=== PATIENT | male | born 1940 | race Caucasian/White ===

== ENCOUNTER 2017-05-10 11:34 | Observation (INO) | payer OTHER ==
[~2017-05-10] VITALS: Ht 177.8 cm; Wt 104.4 kg
[~2017-05-10 11:34] MED LIST: ASPI81TA28 PO; ATEN50TA8 PO; BND25 PO; COLE5GRA5 PO; HYDR25TA5 PO; LSN40 PO; SIMV10TA2 PO; TRAM-10 PO; [UNRECOGNIZED DRUG - CODE] TOP
[2017-05-10] MEDS ORDERED: MELO15TA10 PO (12:08)
[2017-05-10] MEDS ORDERED: SIMV20TA2 PO (12:08)
--- NOTE | 2017-05-10 12:47 | EMERGENCY ROOM VISIT NOTE ---
History Report prepared by Jessica: Aaron Montague Under the Supervision of: Dr. Hamzah Garces M.D. First contact with patient: 12:05 Chief Complaint: CHEST PAIN Stated Complaint: CHEST PAIN Nursing Triage Summary: Patient arrived via EMS from [facility]. Pt c/o left sided chest pain and left shoulder/arm pain since Monday morning, pain has decreased in intesity but does not go away completely. Pt associates dizziness, denies nausea, SOB, diaphoresis. EMS reports patient had 1 Nitro at [facility] and rated pa in 6/10. EMS adminitered 4 ASA. On arrival pt reports chest pain 1/10, left arm pain 2/10. History of Present Illness The patient is a 76 year old male who presents to the Emergency Room via EMS with complaints of resolved left-sided chest pain that started 3 days ago. He says that the chest pain ran into his left neck and left arm. The patient says he has never had something like this before. He tried to have a stress test at least 10 years ago, but he says that he could not do it. The patient has never had a cardiac catheterization before. He states that he was seen at the [facility] earlier today, and was given 1 Nitro, which helped lessen the pain. The pain before the Nitro was rated as a 6 out of 10 in severity. The patient was given 4 Aspirin in the ambulance. He says he is currently pain free. The patient denies any dizziness, nausea, shortness of breath, diaphoresis, or abdominal pain. Source of History: patient Onset: 3 days ago Position: chest (left) Symptom Intensity: 6/10 before nitro Timing: resolved Modifying Factors (Relieving): other (Nitro, Aspirin) Associated Symptoms: + neck pain, No diaphoresis, No SOB, No nausea, No abdominal pain Note: Associated symptoms: Left arm pain. Denies dizziness. Review of Systems See HPI for pertinent positives & negatives. A total of 10 systems reviewed and were otherwise negative. Past Medical & Surgical Medical Problems: (1) IBS (irritable bowel syndrome) (2) Osteoarthritis (3) Spinal stenosis Family History Family history omitted secondary to patient's advanced age. Social History Smoking Status: Never Smoker Marital Status: Housing Status: lives with family Occupation Status: retired Current/Historical Medications Scheduled Aspirin (Aspirin Ec), 81 MG PO DAILY Atenolol (Tenormin), 50 MG PO DAILY Colestipol Hcl (Colestipol Hcl For Oral S), 1 DOSE PO BID Diphenhydramine Hcl (Benadryl), 25 MG PO DAILY Hydrochlorothiazide (Hydrochlorothiazide), 25 MG PO DAILY Lisinopril (Lisinopril), 40 MG PO DAILY Meloxicam (Mobic), 15 MG PO DAILY Simvastatin (Zocor), 10 MG PO DAILY Allergies Coded Allergies: Felodipine (Verified Allergy, Mild, hives, 09/26/14) Gabapentin (Unverified Allergy, Mild, GI SYMPTOMS, 09/26/14) Flunisolide (Verified Allergy, Unknown, other, 09/26/14) Physical Exam Vital Signs Date Time Temp Pulse Resp B/P (MAP) Pulse Ox O2 Delivery O2 Flow Rate FiO2 05/10/17 14:21 50 20 145/84 94 Room Air 05/10/17 12:56 48 22 130/70 95 Room Air 05/10/17 12:55 93 Room Air 05/10/17 12:55 93 Room Air 05/10/17 12:14 45 05/10/17 12:05 37.1 05/10/17 11:35 49 21 128/72 94 Room Air Physical Exam GENERAL: Patient is a healthy-appearing well-nourished 76 year old male. HEAD: Normocephalic atraumatic EYES: Ocular movements intact pupils equal and react to light OROPHARYNX mucous membranes are moist no exudates present no erythema or edema present NECK: Supple no nuchal rigidity CHEST: Good equal expansion LUNGS: Clear and equal to auscultation CARDIAC: Normal S1 and S2 ABDOMEN: Soft nontender no guarding BACK: No CVA tenderness EXTREMITIES: No pain upon palpation normal muscle strength in all groups no clubbing cyanosis or edema NEURO: Patient is following commands and answering questions appropriately. Alert and oriented x3 Cranial Nerves 2-12 grossly intact Medical Decision & Procedures ER Provider Diagnostic Interpretation: X-ray results as stated below per interpretation by me and the radiologist: CHEST ONE VIEW PORTABLE CLINICAL HISTORY: CHEST PAIN COMPARISON STUDY: No previous studies for comparison. FINDINGS: The bones soft tissues and hemidiaphragms are normal. The cardiomediastinal silhouette is normal. The lungs are clear. The pulmonary vasculature is normal. IMPRESSION: Negative chest. Electronically signed by: River Mello M.D. 05/10/2017 1:07 PM Dictated Date/Time: 05/10/2017 1:06 PM Laboratory Results 05/10/17 12:54 Red Blood Count 4.73, Mean Corpuscular Volume 92.8, Mean Corpuscular Hemoglobin 30.2, Mean Corpuscular Hemoglobin Concent 32.6, Mean Platelet Volume 11.4, Neutrophils (%) (Auto) 60.4, Lymphocytes (%) (Auto) 28.9, Monocytes (%) (Auto) 9.8, Eosinophils (%) (Auto) 0.4, Basophils (%) (Auto) 0.4, Neutrophils # (Auto) 4.75, Lymphocytes # (Auto) 2.27, Monocytes # (Auto) 0.77, Eosinophils # (Auto) 0.03, Basophils # (Auto) 0.03 05/10/17 12:54 Test 05/10/17 12:52 05/10/17 12:54 White Blood Count 7.86 K/uL (4.8-10.8) Red Blood Count 4.73 M/uL (4.7-6.1) Hemoglobin 14.3 g/dL (14.0-18.0) Hematocrit 43.9 % (42-52) Mean Corpuscular Volume 92.8 fL (80-100) Mean Corpuscular Hemoglobin 30.2 pg (25-34) Mean Corpuscular Hemoglobin Concent 32.6 g/dl (32-36) Platelet Count 145 K/uL (130-400) Mean Platelet Volume 11.4 fL (7.4-10.4) Neutrophils (%) (Auto) 60.4 % Lymphocytes (%) (Auto) 28.9 % Monocytes (%) (Auto) 9.8 % Eosinophils (%) (Auto) 0.4 % Basophils (%) (Auto) 0.4 % Neutrophils # (Auto) 4.75 K/uL (1.4-6.5) Lymphocytes # (Auto) 2.27 K/uL (1.2-3.4) Monocytes # (Auto) 0.77 K/uL (0.11-0.59) Eosinophils # (Auto) 0.03 K/uL (0-0.5) Basophils # (Auto) 0.03 K/uL (0-0.2) RDW Standard Deviation 46.0 fL (36.4-46.3) RDW Coefficient of Variation 13.4 % (11.5-14.5) Immature Granulocyte % (Auto) 0.1 % Immature Granulocyte # (Auto) 0.01 K/uL (0.00-0.02) Prothrombin Time 11.2 SECONDS (9.0-12.0) Prothromb Time International Ratio 1.0 (0.9-1.1) Activated Partial Thromboplast Time 25.0 SECONDS (21.0-31.0) Partial Thromboplastin Ratio 1.0 Anion Gap 7.0 mmol/L (3-11) Est Creatinine Clear Calc Drug Dose 59.1 ml/min Estimated GFR () 62.3 Estimated GFR (Non- 53.8 BUN/Creatinine Ratio 18.5 (10-20) Calcium Level 10.3 mg/dl (8.5-10.1) Total Bilirubin 1.6 mg/dl (0.2-1) Direct Bilirubin 0.3 mg/dl (0-0.2) Aspartate Amino Transf (AST/SGOT) 20 U/L (15-37) Alanine Aminotransferase (ALT/SGPT) 21 U/L (12-78) Alkaline Phosphatase 39 U/L (45-117) Total Creatine Kinase 72 U/L (39-308) Creatine Kinase MB 0.8 ng/ml (0.5-3.6) Creatine Kinase MB Ratio 1.1 (0-3.0) Troponin I < 0.015 ng/ml (0-0.045) Total Protein 7.4 gm/dl (6.4-8.2) Albumin 3.7 gm/dl (3.4-5.0) Lipase 110 U/L (73-393) Labs reviewed by ED physician. ECG Indication: chest pain Rate (beats per minute): 50 Rhythm: sinus bradycardia Findings: PVC (occasional), T-wave inversion (Anterior), no acute ischemic change, other (incomplete RBBB) Change: no significant change ED Course 1240: Past medical records reviewed. The patient was evaluated in room C1B. A complete history and physical examination was performed. 1340: I reevaluated the patient and he is resting comfortably. The patient verbally expressed understanding and agreement of the treatment plan. The patient will be evaluated for further treatment. 1514: I discussed the patient with Dr. Francoise PAREDES hospitalist - he will evaluate the patient for further treatment. Medical Decision Differential diagnosis: Etiologies such as appendicitis, diverticulitis, PUD, biliary pathology, UTI, pancreatitis, obstruction, mesenteric ischemia, aortic pathology, infections, inflammatory bowel disease, renal colic, as well as others were entertained. Medication Reconciliation: I attest that I have personally reviewed the patient' s current medication list Blood Pressure Screening: Patient was found to have normal blood pressure on screening and does not require follow up. This is a 76-year-old male who presents emergency department complaining of chest pain. The chest pain was relieved by nitroglycerin. The patient was also given aspirin he has a normal CK-MB troponin. I did discuss the case with the hospitalist service who agreed to admit the patient. Patient was in agreement with the treatment plan. Consults Time Called: [phone] Consulting Physician: Dr. Francoise snell Returned Call: [phone] I discussed the patient with Dr. Francoise snell - he will evaluate the patient for further treatment. Impression Primary Impression: Precordial chest pain Scribe Attestation The scribe's documentation has been prepared under my direction and personally reviewed by me in its entirety. I confirm that the note above accurately reflects all work, treatment, procedures, and medical decision making performed by me. Departure Information Dispostion Being Evaluated By Hospitalist Referrals No Doctor, Assigned (PCP) Patient Instructions My [facility]
--- NOTE | 2017-05-10 13:08 | DIAGNOSTIC IMAGING REPORT ---
CHEST ONE VIEW PORTABLE CLINICAL HISTORY: CHEST PAIN COMPARISON STUDY: No previous studies for comparison. FINDINGS: The bones soft tissues and hemidiaphragms are normal. The cardiomediastinal silhouette is normal. The lungs are clear. The pulmonary vasculature is normal. IMPRESSION: Negative chest. Electronically signed by: River Mello M.D. 05/10/2017 1:07 PM Dictated Date/Time: 05/10/2017 1:06 PM
[2017-05-10 13:10] LABS: BASO % 0.4 %; BASO ABS # 0.03 K/uL (0-0.2); COMPLETE YES; EOS % 0.4 %; HEMATOCRIT 43.9 % (42-52); IG% 0.1 %; LYMPH % 28.9 %; LYMPH ABS # 2.27 K/uL (1.2-3.4); MEAN CELL VOLUME 92.8 fL (80-100); MEAN CORPUSCULAR HEMOGLOBIN 30.2 pg (25-34); MEAN CORPUSCULAR HGB CONC 32.6 g/dl (32-36); MEAN PLATELET VOLUME 11.4 fL (7.4-10.4); MONO % 9.8 %; NEUT % 60.4 %; PLATELET COUNT 145 K/uL (130-400); RED BLOOD COUNT 4.73 M/uL (4.7-6.1); WHITE BLOOD COUNT 7.86 K/uL (4.8-10.8)
[2017-05-10 13:30] LABS: ALT/SGPT 21 U/L (12-78); BLOOD UREA NITROGEN 24 mg/dl (7-18); BUN/CREATININE RATIO 18.5 (10-20); CALCIUM 10.3 mg/dl (8.5-10.1); CARBON DIOXIDE 26 mmol/L (21-32); CHLORIDE 110 mmol/L (98-107); GLUCOSE 113 mg/dl (70-99); POTASSIUM 3.9 mmol/L (3.5-5.1); SODIUM 143 mmol/L (136-145)
[2017-05-10 13:35] LABS: ALKALINE PHOSPHATASE 39 U/L (45-117); AST/SGOT 20 U/L (15-37); CKMB/CK RATIO 1.1 (0-3.0)
[2017-05-10] MEDS ORDERED: ONDANSETRON INJ 2 MG/ML 2 ML VIAL IV PRN (14:45)
[2017-05-10] MEDS ORDERED: NITROGLYCERIN 0.4 MG SL PER TAB CHARGE SL PRN (14:45)
[2017-05-10] MEDS ORDERED: ALUMINUM/MAGNESIUM/SIMETH (MAALOX MAX) 30 ML UDC PO PRN (14:45)
[2017-05-10] MEDS ORDERED: ACETAMINOPHEN 325 MG TAB PO PRN (14:45)
[2017-05-10] MEDS ORDERED: MAGNESIUM HYDROXIDE SUSP 30 ML UDC PO PRN (14:45)
[2017-05-10] MEDS ORDERED: POLYETHYLENE (MIRALAX) 17 GM PACK PO PRN (14:45)
[2017-05-10] MEDS ORDERED: IV FLUIDS COMPLETED PRN (15:30)
[2017-05-10 16:35] VITALS: BP 117/70; PULSE 51; TEMP 36.7; O2SAT 94
[2017-05-10 17:56] LABS: PROTHROMBIN TIME (PATIENT) 11.2 SECONDS (9.0-12.0)
[2017-05-10 19:27] VITALS: BP 117/70; PULSE 51; TEMP 36.7; O2SAT 96; BMI 31.6
[2017-05-10 19:45] VITALS: BP 124/71; PULSE 48; TEMP 36.5; O2SAT 96
[2017-05-10 20:00] VITALS: O2SAT 96
[2017-05-10] MEDS ORDERED: HydrALAZINE HCL 20 MG/ML VIAL IV. PRN (20:30)
--- NOTE | 2017-05-10 20:31 | History and Physical ---
History & Physical Date & Time of Service: May 10, 2017 at 20:15 Chief Complaint: Precordial Chest Pain Primary Care Physician: No Doctor, Assigned History of Present Illness Source: patient, clinic records (copy of [facility] records), hospital records This is a 76 y/o male with a history of HTN, HLD, BPH, DM II controlled by diet , and gout who presented to the ED on 05/10 with chest pain. The patient first developed left-sided chest pain about 4 days ago that radiated up to the left side of his neck and down his left arm. Over the last few days the pain has been improving. The patient was seen at the [facility] earlier today and received 1 dose of nitroglycerin which helped to relieve the pain. En route to the ED he received 4 aspirins which also helped with the pain. He is currently pain-free in the chest but still complains 1/10 aching pain in the left arm. He denies any previous cardiac events. He states that he had a nuclear stress test about 10 years ago that was normal. He denies any previous cardiac catheterizations. Patient denies any associated symptoms such as nausea, vomiting, numbness/ tingling or shortness of breath. He does complain of some dizziness that occurs when standing up and that resolves quickly. The patient denies fevers, chills, sweats, palpitations, claudication, cough, wheezing, shortness of breath , nausea, vomiting, abdominal pain, dysuria, hematuria, urinary retention, paralysis, weakness, numbness and tingling. Past Medical/Surgical History Medical Problems: (1) IBS (irritable bowel syndrome) Status: Chronic (2) Osteoarthritis Status: Chronic (3) Spinal stenosis Status: Resolved HTN HLD BPH DM II Gout Family History Diabetes mellitus Hypertension Stroke Social History Smoking Status: Never Smoker Smokeless Tobacco Use: No Alcohol Use: socially (1 beer/day) Drug Use: none Marital Status: Housing status: lives with significant other Occupational Status: retired Multi-Drug Resistant Organisms History of MDRO: No Allergies Coded Allergies: Felodipine (Verified Allergy, Mild, hives, 09/26/14) Gabapentin (Unverified Allergy, Mild, GI SYMPTOMS, 09/26/14) Flunisolide (Verified Allergy, Unknown, other, 09/26/14) Home Medications Scheduled Aspirin (Aspirin Ec), 81 MG PO DAILY Atenolol (Tenormin), 25 MG PO DAILY Colestipol Hcl (Colestipol Hcl For Oral S), 1 DOSE PO BID Diphenhydramine Hcl (Benadryl), 25 MG PO DAILY Hydrochlorothiazide (Hydrochlorothiazide), 25 MG PO DAILY Lisinopril (Lisinopril), 40 MG PO DAILY Meloxicam (Mobic), 15 MG PO DAILY Simvastatin (Zocor), 10 MG PO DAILY Review of Systems Constitutional: No fever, No chills, No sweats Eyes: No worsening of vision, No eye pain, No diplopia ENT: No hearing loss, No sore throat, No trouble swallowing Respiratory: No cough, No wheezing, No shortness of breath Cardiovascular: + chest pain, No claudication, No palpitations Abdomen: No pain, No nausea, No vomiting Musculoskeletal: No joint pain, No muscle pain, No swelling Genitourinary - Male: No hematuria, No dysuria, No urinary retention Neurologic: No paralysis, No weakness, No numbness/tingling Integumentary: No rash, No itch, No color change Physical Exam Vital Signs Date Time Temp Pulse Resp B/P (MAP) Pulse Ox O2 Delivery O2 Flow Rate FiO2 05/10/17 19:45 36.5 48 16 124/71 (88) 96 Room Air 05/10/17 19:27 36.7 51 16 117/70 96 Room Air 05/10/17 16:35 36.7 51 16 117/70 (86) 94 Room Air 05/10/17 16:20 48 18 133/68 96 05/10/17 14:21 50 20 145/84 94 Room Air 05/10/17 12:56 48 22 130/70 95 Room Air 05/10/17 12:55 93 Room Air 05/10/17 12:55 93 Room Air 05/10/17 12:14 45 05/10/17 12:05 37.1 05/10/17 11:35 49 21 128/72 94 Room Air General appearance: +Obese. Well-developed, well-nourished, no apparent distress Head: Normocephalic, atraumatic Eyes: Normal inspection, PERRL, EOMI ENT: Normal ENT inspection, hearing grossly normal, pharynx normal Neck: Supple, no JVD, trachea midline Respiratory/Chest: Lungs clear to auscultation, normal breath sounds, no respiratory distress Cardiovascular: +Bradycardia. Regular rhythm, no gallop, no murmur Abdomen/GI: Normal bowel sounds, non-tender, soft Extremities/Musculoskeletal: Normal inspection, no calf tenderness, no pedal edema Neurological/Psych: Alert, normal mood/affect, oriented x 3 Skin: Normal color, warm/dry, no rash Diagnostics Laboratory Results Results Past 24 Hours Test 05/10/17 12:52 05/10/17 12:54 Range/Units White Blood Count 7.86 4.8-10.8 K/uL Red Blood Count 4.73 4.7-6.1 M/uL Hemoglobin 14.3 14.0-18.0 g/dL Hematocrit 43.9 42-52 % Mean Corpuscular Volume 92.8 80-100 fL Mean Corpuscular Hemoglobin 30.2 25-34 pg Mean Corpuscular Hemoglobin Concent 32.6 32-36 g/dl Platelet Count 145 130-400 K/uL Mean Platelet Volume 11.4 7.4-10.4 fL Neutrophils (%) (Auto) 60.4 % Lymphocytes (%) (Auto) 28.9 % Monocytes (%) (Auto) 9.8 % Eosinophils (%) (Auto) 0.4 % Basophils (%) (Auto) 0.4 % Neutrophils # (Auto) 4.75 1.4-6.5 K/uL Lymphocytes # (Auto) 2.27 1.2-3.4 K/uL Monocytes # (Auto) 0.77 0.11-0.59 K/uL Eosinophils # (Auto) 0.03 0-0.5 K/uL Basophils # (Auto) 0.03 0-0.2 K/uL RDW Standard Deviation 46.0 36.4-46.3 fL RDW Coefficient of Variation 13.4 11.5-14.5 % Immature Granulocyte % (Auto) 0.1 % Immature Granulocyte # (Auto) 0.01 0.00-0.02 K/uL Prothrombin Time 11.2 9.0-12.0 SECONDS Prothromb Time International Ratio 1.0 0.9-1.1 Activated Partial Thromboplast Time 25.0 21.0-31.0 SECONDS Partial Thromboplastin Ratio 1.0 Sodium Level 143 136-145 mmol/L Potassium Level 3.9 3.5-5.1 mmol/L Chloride Level 110 98-107 mmol/L Carbon Dioxide Level 26 21-32 mmol/L Anion Gap 7.0 3-11 mmol/L Blood Urea Nitrogen 24 7-18 mg/dl Creatinine 1.30 0.60-1.40 mg/dl Est Creatinine Clear Calc Drug Dose 59.1 ml/min Estimated GFR () 62.3 Estimated GFR (Non- 53.8 BUN/Creatinine Ratio 18.5 10-20 Random Glucose 113 70-99 mg/dl Calcium Level 10.3 8.5-10.1 mg/dl Total Bilirubin 1.6 0.2-1 mg/dl Direct Bilirubin 0.3 0-0.2 mg/dl Aspartate Amino Transf (AST/SGOT) 20 15-37 U/L Alanine Aminotransferase (ALT/SGPT) 21 12-78 U/L Alkaline Phosphatase 39 45-117 U/L Total Creatine Kinase 72 39-308 U/L Creatine Kinase MB 0.8 0.5-3.6 ng/ml Creatine Kinase MB Ratio 1.1 0-3.0 Troponin I < 0.015 0-0.045 ng/ml Total Protein 7.4 6.4-8.2 gm/dl Albumin 3.7 3.4-5.0 gm/dl Lipase 110 73-393 U/L Diagnostic Radiology Reviewed the following studies and agree with interpretation as follows: Patient Name: MARIAMA PEARCE Unit Number: [id number] Dictated: 05/10/171305 Transcribed: 05/10/17 1306 MS Printed Date/Time: [~ rep prt dt]/[~ rep prt tm] [~ rep ct labl] - [~ rep ct ivnm] [facility] [place] [id number] Dictated: 05/10/17 130 Transcribed: 05/10/17 1306 MS Printed Date/Time: [~ rep prt dt]/[~ rep prt tm] [~ rep ct labl] - [~ rep ct ivnm] Patient: MARIAMA PEARCE Address1: [address] [place] [address] Rec: [id number] Address2: [facility] [address] ID: [id number] [facility] Zip: [place] [id number] Date: 1940 Sex: M Room/Bed: Ref Phy: No Doctor, Assigned [place]: [facility] Att Phy: Report #: [id number] Jazlyn Phy: No Doctor, Assigned Test: CXR1P Admit Phy: Consumer Loan Processor: HERO Interpreting Phy: River Mello M.D. Diagnosis: CHEST PAIN Ordering Phy: Hamzah Garces MD Service Date: 05/10/17 Admit Date: 05/10/17 MNE: [id number] CONF: DICTATED BY: River Mlelo M.D.]] CC: Hamzah Garces MD No Doctor, Assigned Endcc: [~ rep ct add3]] CHEST ONE VIEW PORTABLE CLINICAL HISTORY: CHEST PAIN COMPARISON STUDY: No previous studies for comparison. FINDINGS: The bones soft tissues and hemidiaphragms are normal. The cardiomediastinal silhouette is normal. The lungs are clear. The pulmonary vasculature is normal. IMPRESSION: Negative chest. Electronically signed by: River Mello M.D. 05/10/2017 1:07 PM Dictated Date/Time: 05/10/2017 1:06 PM The status of this report is Signed. Draft = Not yet reviewed or approved by Radiologist. Signed = Reviewed and approved by Radiologist. <AttendingPhy></AttendingPhy> <FamilyPhy>No Doctor, Assigned</FamilyPhy> < PrimaryPhy>No Doctor, Assigned</PrimaryPhy> <UnitNumber>[id number]</UnitNumber> <VisitNumber>[id number]</VisitNumber> <PatientName>AGUILARMARIAMA SHIELDS</ PatientName> <DateOfBirth>1940</DateOfBirth> <Location>[facility]</Location> < ServiceDate>05/10/17</ServiceDate> <MNE>ESINDI</MNE> <OrderingPhy>Hamzah Garces MD</OrderingPhy> <OrderingPhyMNE>f rep ord dr akins</OrderingPhyMNE> < DictatingPhyMNE>f rep dict dr akins</DictatingPhyMNE> <CCListMNE>f rep ct mne</ CCListMNE> <AdmittingPhyMNE>f pt admit dr akins</AdmittingPhyMNE> <AttendingPhyMNE >f pt attend dr akins</AttendingPhyMNE> <ConsultingPhyMNE>f pt consult dr akins</ConsultingPhyMNE> <FamilyPhyMNE>f pt fam dr akins</FamilyPhyMNE> <OtherPhyMNE>f pt other dr akins</OtherPhyMNE> < PrimaryPhyMNE>f pt prim care dr akins</PrimaryPhyMNE> <ReferringPhyMNE>f pt referring dr akins</ReferringPhyMNE> EKG Reviewed EKG and agree with interpretation as follows: 50 bpm, sinus bradycardia with PVC, incomplete RBBB, anterior T wave inversions [facility], no significant changes. Incomplete RBBB and T wave inversions old. Impression Assessment and Plan 76 y/o male with a history of HTN, HLD, BPH, DM II controlled by diet, and gout who presented to the ED on 05/10 with chest pain. Patient bradycardic on arrival , vital signs otherwise stable. EKG showed sinus bradycardia with anterior T- wave inversions. [facility] reviewed, T-wave inversions are not new, no significant changes. Chest x-ray shows no acute disease. Cardiac enzymes negative. Chest pain--symptomatic bradycardia vs ACS -Admit to telemetry for observation -Cardiac enzymes q8h x 3 -Fasting lipid panel -Hemoglobin A1c -EKGs q am and prn with chest pain -NPO after midnight for possible stress echo in morning -Hold atenolol for now due to bradycardia HTN--stable -Continue HCTZ 25 mg PO qd and lisinopril 40 mg PO qd -Atenolol held -Cover with hydralazine 10 mg IV q6h prn SBP >180 HLD -Continue simvastatin 10 mg PO qd and colestipol 5 mg PO BID Diabetes mellitus type 2--unknown last HgbA1c, not on any meds -Insulin sliding scale -Check BSGs q ac and qhs -Check HgbA1c DVT prophylaxis -Enoxaparin 40 mg SC q24h -THERESE go and SCDs Code Status -Level I, FULL RESUSCITATION STATUS This chart was completed in part utilizing [employer] Speech Voice Recognition software. Attempts were made to minimize the grammatical errors, random word insertions, pronoun errors and incomplete sentences. Any formal questions or concerns about the content, text or information contained within the body of this dictation should be directly addressed to the provider for clarification. Level of Care Telemetry Advanced Directives Existing Living Will: No Existing Power of Mobile Homes Repairer: No Resuscitation Status FULL RESUSCITATION VTE Prophylaxis VTE Risk Assessment Done? Y/N: Yes Risk Level: Moderate Given or contraindicated: Enoxaparin (Lovenox)SQ, T.E.DNurys Diaz, SCD's Assessment and Plan Attending Addendum: I have physically seen and examined this patient, have directed the physician assistants medical extremities, and agree with the H&P as noted above with the following exceptions: NONE The patient is awake, well-developed and adequately nourished, alert and oriented 3, normocephalic and atraumatic, lying in bed and in no acute distress. HEENT--PERRL, EOMI, mucous membranes and oropharynx normal. Neck--supple, no JVD or bruits, thyroid normal, trachea midline, no adenopathy. Heart--normal S1 and S2, no extra beats, no murmurs, rubs or gallops. Lungs--clear bilaterally with good air movement, no respiratory distress, no accessory muscle use. Abdomen--normal bowel sounds and soft, nontender and nondistended, no hernias or masses, no organomegaly. Extremities--no cyanosis, clubbing or edema. There are good distal pulses b/l. Dermatologic--normal skin turgor, normal color, warm and dry, no abnormal lymph nodes, no rash. Neurologic--cranial nerves II through XII grossly intact, motor and sensory examination normal. Rheumatologic--normal range of motion, nontender, muscles and joints. Psychiatric--normal affect. Assessment and Plan: 1. Precordial chest pain/symptomatic bradycardia--the patient will be admitted to the telemetry with serial cardiac enzymes, cardiac rhythm monitoring and a 2- D echocardiogram with Dopplers. . Continue HCTZ 25 mg daily and lisinopril 40 mg daily. Available hydralazine 10 mg IV every 4 hours when necessary systolic blood pressure greater than 160. If there is recurrent bradycardia, pacer pads will be placed and the patient will be transcutaneously paced. Consult cardiology.
[2017-05-10] MEDS ORDERED: ENOXAPARIN 40 MG/0.4 ML SYR SC SCH (21:00)
[2017-05-10] MEDS: COLESTIPOL HCL 5 GM POWDER PACK PO SCH (22:03)
[2017-05-10 22:39] LABS: CKMB/CK RATIO 0.6 (0-3.0)
[2017-05-10 23:42] VITALS: BP 118/69; PULSE 48; TEMP 36.5; O2SAT 93
[2017-05-11 03:48] VITALS: BP 133/74; PULSE 49; TEMP 36.4; O2SAT 94
[2017-05-11 05:32] LABS: HEMATOCRIT 43.3 % (42-52); MEAN CELL VOLUME 92.5 fL (80-100); MEAN CORPUSCULAR HEMOGLOBIN 29.9 pg (25-34); MEAN CORPUSCULAR HGB CONC 32.3 g/dl (32-36); MEAN PLATELET VOLUME 10.9 fL (7.4-10.4); PLATELET COUNT 140 K/uL (130-400); RED BLOOD COUNT 4.68 M/uL (4.7-6.1); WHITE BLOOD COUNT 7.21 K/uL (4.8-10.8)
[2017-05-11 05:59] LABS: BLOOD UREA NITROGEN 26 mg/dl (7-18); CALCIUM 9.2 mg/dl (8.5-10.1); CARBON DIOXIDE 28 mmol/L (21-32); CHLORIDE 107 mmol/L (98-107); GLUCOSE 136 mg/dl (70-99); POTASSIUM 3.7 mmol/L (3.5-5.1); SODIUM 142 mmol/L (136-145)
[2017-05-11 06:04] LABS: CHOLESTEROL 119 mg/dl (0-200); CHOLESTEROL/HDL RATIO 2.9; CKMB/CK RATIO 0.6 (0-3.0); HDL CHOLESTEROL 41 mg/dl; LDL CHOLESTEROL CALCULATED 38 mg/dl; TRIGLYCERIDES 200 mg/dl (0-150); VERY LOW DENSITY LIPOPROT CALC 40 mg/dl
[2017-05-11 06:58] LABS: ESTIMATED AVERAGE GLUCOSE 154 mg/dl; HA1C FLAG Normal (Normal)
[2017-05-11 07:44] VITALS: BP 148/79; PULSE 47; TEMP 36.5; O2SAT 96
--- NOTE | 2017-05-11 08:46 | Hospitalist Progress Note ---
Hospitalist Progress Note Date of Service May 11, 2017. (Bethanie Herrera PA-C) Subjective Pt evaluation today including: conversation w/ patient, physical exam, chart review, lab review, review of studies Pain: none PO Intake: NPO Voiding: no voiding problems The patient was seen and examined this morning. Pt reports doing well today. He denies any chest pain, shortness of breath, abdominal pain, lightheadedness, dizziness, nausea, and vomiting. His , daughter and grandson are all at bedside. He is NPO for anticipated stress test. Pt has been ambulating to the bathroom without difficulty. Additional Comments: ROS: 6 point ROS negative other than per HPI (Bethanie Herrera PA-C) Objective Vital Signs Date Time Temp Pulse Resp B/P (MAP) Pulse Ox O2 Delivery O2 Flow Rate FiO2 05/11/17 07:59 Nasal Cannula 2.0 05/11/17 07:44 36.5 47 16 148/79 (102) 96 Room Air 05/11/17 04:00 Room Air 05/11/17 03:48 36.4 49 18 133/74 (93) 94 Room Air 05/10/17 23:59 Room Air 05/10/17 23:42 36.5 48 16 118/69 (85) 93 Room Air 05/10/17 20:00 96 Room Air 05/10/17 19:45 36.5 48 16 124/71 (88) 96 Room Air 05/10/17 19:27 36.7 51 16 117/70 96 Room Air 05/10/17 16:35 36.7 51 16 117/70 (86) 94 Room Air 05/10/17 16:20 48 18 133/68 96 05/10/17 14:21 50 20 145/84 94 Room Air 05/10/17 12:56 48 22 130/70 95 Room Air 05/10/17 12:55 93 Room Air 05/10/17 12:55 93 Room Air 05/10/17 12:14 45 05/10/17 12:05 37.1 05/10/17 11:35 49 21 128/72 94 Room Air (Bethanie Herrera PA-C) Physical Exam General Appearance: WD/WN, no apparent distress, + obese Eyes: PERRL, EOMI, + pertinent finding (front teeth are missing) ENT: hearing grossly normal, pharynx normal Neck: supple, no JVD Respiratory/Chest: chest non-tender, lungs clear, no respiratory distress, no accessory muscle use Cardiovascular: regular rate, rhythm, no JVD, no murmur Abdomen: normal bowel sounds, non tender, soft, + pertinent finding (slightly distended, +obese) Extremities: normal range of motion, non-tender, no calf tenderness Neurologic/Psychiatric: no motor/sensory deficits, alert, normal mood/affect, oriented x 3 Skin: normal color, warm/dry (Bethanie Herrera, GINO) Laboratory Results Last 24 Hours Test 05/10/17 12:52 05/10/17 12:54 05/10/17 21:17 05/11/17 05:21 Estimated Average Glucose 154 mg/dl Hemoglobin A1c 7.0 % White Blood Count 7.86 K/uL 7.21 K/uL Red Blood Count 4.73 M/uL 4.68 M/uL Hemoglobin 14.3 g/dL 14.0 g/dL Hematocrit 43.9 % 43.3 % Mean Corpuscular Volume 92.8 fL 92.5 fL Mean Corpuscular Hemoglobin 30.2 pg 29.9 pg Mean Corpuscular Hemoglobin Concent 32.6 g/dl 32.3 g/dl Platelet Count 145 K/uL 140 K/uL Mean Platelet Volume 11.4 fL 10.9 fL Neutrophils (%) (Auto) 60.4 % Lymphocytes (%) (Auto) 28.9 % Monocytes (%) (Auto) 9.8 % Eosinophils (%) (Auto) 0.4 % Basophils (%) (Auto) 0.4 % Neutrophils # (Auto) 4.75 K/uL Lymphocytes # (Auto) 2.27 K/uL Monocytes # (Auto) 0.77 K/uL Eosinophils # (Auto) 0.03 K/uL Basophils # (Auto) 0.03 K/uL RDW Standard Deviation 46.0 fL 45.4 fL RDW Coefficient of Variation 13.4 % 13.5 % Immature Granulocyte % (Auto) 0.1 % Immature Granulocyte # (Auto) 0.01 K/uL Prothrombin Time 11.2 SECONDS Prothromb Time International Ratio 1.0 Activated Partial Thromboplast Time 25.0 SECONDS Partial Thromboplastin Ratio 1.0 Sodium Level 143 mmol/L 142 mmol/L Potassium Level 3.9 mmol/L 3.7 mmol/L Chloride Level 110 mmol/L 107 mmol/L Carbon Dioxide Level 26 mmol/L 28 mmol/L Anion Gap 7.0 mmol/L 7.0 mmol/L Blood Urea Nitrogen 24 mg/dl 26 mg/dl Creatinine 1.30 mg/dl 1.30 mg/dl Est Creatinine Clear Calc Drug Dose 59.1 ml/min 59.1 ml/min Estimated GFR () 62.3 62.3 Estimated GFR (Non- 53.8 53.8 BUN/Creatinine Ratio 18.5 20.0 Random Glucose 113 mg/dl 136 mg/dl Calcium Level 10.3 mg/dl 9.2 mg/dl Total Bilirubin 1.6 mg/dl Direct Bilirubin 0.3 mg/dl Aspartate Amino Transf (AST/SGOT) 20 U/L Alanine Aminotransferase (ALT/SGPT) 21 U/L Alkaline Phosphatase 39 U/L Total Creatine Kinase 72 U/L 88 U/L 101 U/L Creatine Kinase MB 0.8 ng/ml 0.5 ng/ml 0.6 ng/ml Creatine Kinase MB Ratio 1.1 0.6 0.6 Troponin I < 0.015 ng/ml < 0.015 ng/ml < 0.015 ng/ml Total Protein 7.4 gm/dl Albumin 3.7 gm/dl Lipase 110 U/L Triglycerides Level 200 mg/dl Cholesterol Level 119 mg/dl HDL Cholesterol 41 mg/dl LDL Cholesterol, Calculated 38 mg/dl VLDL Cholesterol, Calculated 40 mg/dl Cholesterol/HDL Ratio 2.9 (Bethanie Herrera, PA-C) Assessment and Plan 76 y/o male with a history of HTN, HLD, BPH, DM II controlled by diet, and gout who presented to the ED on 05/10 with chest pain. Patient bradycardic on arrival , vital signs otherwise stable. EKG showed sinus bradycardia with anterior T- wave inversions. [facility], T-wave inversions are not new, no significant changes. Chest x-ray shows no acute disease. Cardiac enzymes negative. Chest pain--symptomatic bradycardia vs ACS -Cardiac enzymes q8h x 3 negative -Fasting lipid panel - triglycerides are 200 -EKGs q am and prn with chest pain without signs of ischemia or changes. -Stress echo dobutamine ordered for today since negative cardiac enzymes -Hold atenolol for now due to bradycardia HTN--stable -Continue HCTZ 25 mg PO qd and lisinopril 40 mg PO qd -Atenolol held due to bradycardia, do not resume on discharge. Will need pcp to follow BPs. -Cover with hydralazine 10 mg IV q6h prn SBP >180 HLD -Continue simvastatin 10 mg PO qd and colestipol 5 mg PO BID Diabetes mellitus type 2, new dx - Hgb A1C = 7, pt reports being prediabetic and that last time HA1C was checked was 6-7 y months ago. He does not follow with a PCP, as his from the [facility] left the practice. He will need established pcp prior to discharge. - community educator consult ordered -Insulin sliding scale -Check BSGs q ac and qhs DVT prophylaxis -Enoxaparin 40 mg SC q24h -THERESE go and SCDs Code Status: FULL CODE Disposition: From home, lives with , discharge possible within ~24 hours if negative stress echo (Bethanie Herrera PA-C) History see discharge summary on same date for my addendum (Mey Chang MD)
[2017-05-11] MEDS ORDERED: ASPIRIN 81 MG ECTAB PO SCH (09:00)
[2017-05-11] MEDS ORDERED: HYDROCHLOROTHIAZIDE 25 MG TAB PO SCH (09:00)
[2017-05-11] MEDS ORDERED: LISINOPRIL 40 MG TAB PO SCH (09:00)
[2017-05-11] MEDS ORDERED: MELOXICAM 7.5 MG TAB PO SCH (09:00)
[2017-05-11] MEDS ORDERED: SIMVASTATIN 10 MG TAB PO SCH (09:00)
[2017-05-11] MEDS: COLESTIPOL HCL 5 GM POWDER PACK PO SCH (10:42)
[2017-05-11 11:55] VITALS: BP 137/82; PULSE 50; TEMP 36.5; O2SAT 96
[2017-05-11] MEDS ORDERED: ATROPINE SULFATE 0.1 MG/ML 5ML SYR ONE (13:49)
[2017-05-11] MEDS ORDERED: METOPROLOL TARTRATE 1 MG/ML VIAL ONE (13:49)
[2017-05-11] MEDS ORDERED: DOBUTamine HCL 12.5 MG/ML 20 ML VIAL ONE (13:49)
[2017-05-11] MEDS ORDERED: PERFLUTREN LIPID MICROSPHERE (DEFINITY) IV ONE (14:53)
[2017-05-11 14:55] VITALS: Ht 177.8 cm; Wt 104.4 kg
[2017-05-11] MEDS ORDERED: ATEN50TA8 PO (15:15)
--- NOTE | 2017-05-11 15:20 | Discharge Instructions ---
Discharge Instructions Date of Service May 11, 2017. Admission Reason for Admission: Precordial Chest Pain Discharge Discharge Diagnosis / Problem: Chest pain-noncardiac Discharge Goals Goal(s): Decrease discomfort, Improve function, Increase independence, Improve disease control, Diagnostic testing Activity Recommendations Activity Limitations: resume your previous activity Lifting Limitations: gradually increase as tolerated Exercise/Sports Limitations: gradually increase as tolerated May Resume Sexual Activity: when tolerated Shower/Bathe: no limitations Driving or Machine Use: no limitations . Instructions / Follow-Up Instructions / Follow-Up You were admitted to [facility] with chest pain and diagnosed with musculoskeletal chest pain. This may be pain coming from your neck arthritis or a pinched nerve. During your stay here you were treated with supportive treatment, cardiac markers were trended and were negative. You did not have a heart attack. Imaging studies which were completed include stress echocardiogram which was normal. Your triglycerides are slightly elevated at 200. This can be improved with a low carbohydrate diet and exercise, as well as weight loss. For diabetes Type II: Hemoglobin A1c, your vermin exterminator sugar reading (Hemoglobin A1C) was equal to 7.0, please have this rechecked in 3 months and follow up with your PCP. Continue to work on diet and exercise to help maintain an adequate A1C. Medication changes: Atenolol has been reduced to 25 mg daily as your heart rate was quite low in the 40s when you first came in. Please continue taking this as prescribed. A new prescription has been sent to pharmacy. It is possible that your low heart rate was contributing to your lightheadedness. Follow-up: Follow-up with your PCP within the next 1-2 weeks. -An appointment has been requested for you with the [facility]. Current Hospital Diet Patient's current hospital diet: AHA Diet (Heart Healthy), Diabetes Type 2 Diet Discharge Diet Recommended Diet: AHA Diet (Heart Healthy), Low Sodium Diet (2gm Na) Procedures Procedures Performed: Stress echocardiogram 05/11/17 Chest xray-normal Pending Studies Studies pending at discharge: no Laboratory Results Hemoglobin A1c Test 05/10/17 12:52 Range/Units Estimated Average Glucose 154 mg/dl Hemoglobin A1c 7.0 H 4.5-5.6 % Lipid Panel Test 05/11/17 05:21 Range/Units Triglycerides Level 200 H 0-150 mg/dl Cholesterol Level 119 0-200 mg/dl HDL Cholesterol 41 mg/dl Cholesterol/HDL Ratio 2.9 LDL Cholesterol, Calculated 38 mg/dl Medical Emergencies . Who to Call and When: Medical Emergencies: If at any time you feel your situation is an emergency, please call 911 immediately. . Non-Emergent Contact Non-Emergency issues call your: Primary Care Provider, Computer Networker Call Non-Emergent contact if: you have a fever, temperature is above 100.5, your pain is not controlled, your pain is worsening, your pain is unusual for you, your pain is concerning you, you have any medication questions You experience chest pain, shortness of breath, abdominal pain, lightheadedness , dizziness, abdominal pain, or if you have any other concerns regarding your health. . Past History Medical & Surgical History: (1) Precordial chest pain (2) Osteoarthritis . "Provider Documentation" section prepared by Deb Herrera. . VTE Core Measure Inpt VTE Proph given/why not?: Enoxaparin (Lovenox)SQ, T.E.D. Stockings, SCD's
--- NOTE | 2017-05-11 15:28 | Discharge Summary ---
Discharge Summary Date of Service May 11, 2017. (Bethanie Gray PA-C) Discharge Summary Admission Date: May 10, 2017 at 14:46 Discharge Date: May 11, 2017 Discharge Disposition: Home Principal Diagnosis: precordial chest pain Procedures: CHEST ONE VIEW PORTABLE CLINICAL HISTORY: CHEST PAIN COMPARISON STUDY: No previous studies for comparison. FINDINGS: The bones soft tissues and hemidiaphragms are normal. The cardiomediastinal silhouette is normal. The lungs are clear. The pulmonary vasculature is normal. IMPRESSION: Negative chest. Electronically signed by: River Mello M.D. 05/10/2017 1:07 PM Dictated Date/Time: 05/10/2017 1:06 PM The status of this report is Signed. Stress Echocardiogram 05/11/17 * Reason For Study: Chest pain * -- Conclusions -- * 1. Negative dobutamine stress echo for ischemia at 100% MPHR. * 2. Negative stress ECG for ischemia. Frequent PVCs with dobutamine. Mild dobutamine induced chest tightness. * 3. Normal LV size and function. LVEF 60-65%. Grade I diastolic dysfunction. No significant valvular pathology. Consultations: None (Bethanie Gray PA-C) Problems/Secondary Diagnoses: HTN HLD BPH DM II controlled by diet Gout Symptomatic bradycardia Diabetes mellitus type 2 (Mey Chang MD) Medication Reconciliation Changed Medications: Atenolol (Tenormin) 50 Mg Tab 25 MG PO DAILY for 30 Days, #15 TAB (Changed from: 50 MG) Continued Medications: Aspirin (Aspirin Ec) 81 Mg Tab 81 MG PO DAILY Colestipol Hcl (Colestipol Hcl For Oral S) 5 Gm Gra 1 DOSE PO BID Diphenhydramine Hcl (Benadryl) 25 Mg Cap 25 MG PO DAILY, CAP Hydrochlorothiazide (Hydrochlorothiazide) 25 Mg Tab 25 MG PO DAILY Lisinopril (Lisinopril) 40 Mg Tab 40 MG PO DAILY Meloxicam (Mobic) 15 Mg Tab 15 MG PO DAILY, TAB Simvastatin (Zocor) 20 Mg Tab 10 MG PO DAILY, TAB Discharge Exam Patient was seen and examined this morning. He reports he is doing well and denies any chest pain currently. Overnight the nursing staff reported that he had a 2 out of 10 chest pain, was off the nitroglycerin however he refused, and that the pain subsided. He denies ever having any shortness of breath, lightheadedness, dizziness, palpitations or flutter. He is anticipating a stress echocardiogram today. He notes that both of his knees have significant osteoarthritis and that he would be unable to participate in a stress treadmill test. ROS: Constitutional: No fever, sweats or chills Eyes: No diplopia, no worsening or blurred vision ENT: normal hearing, no trouble swallowing Respiratory: No cough, sputum, dyspnea at rest or on exertion Cardiovascular: No chest pain, tightness or palpitations Abdomen: No pain, nausea, vomiting, diarrhea or constipation Musculoskeletal: No joint pain, calf pain, swelling Neurologic: No weakness, numbness/tingling, or balance problems Psychiatric: No anxiety or depression Skin: No rash or itch PE: General: awake, alert, no apparent distress, obese Head: Normocephalic, atraumatic (front teeth are missing) ENT: PERRL, EOMI, no pharyngeal exudate, mucous membranes moist Chest: Clear to auscultation, on room air, no adventitious breath sounds Cardiac: Regular rate and rhythm, no murmur, no JVD, normal peripheral pulses, good capillary refill Abdominal: NABS x 4 quadrants, soft, nontender to palpation, no rebound, guarding or tenderness Extremities: Normal inspection, no peripheral edema or erythema, calfs nontender to palpation Psych: Normal mood and affect Neuro: AAO x 3, strength intact bilaterally and related 5/5, no motor deficits, speech is clear, no peripheral sensory deficits (Bethanie Gray PA-C) Hospital Course H&P per Yaquelin Borja PA-C History of Present Illness Source: patient, [facility] records This is a 76 y/o male with a history of HTN, HLD, BPH, DM II controlled by diet , and gout who presented to the ED on 05/10 with chest pain. The patient first developed left-sided chest pain about 4 days ago that radiated up to the left side of his neck and down his left arm. Over the last few days the pain has been improving. The patient was seen at the [place] earlier today and received 1 dose of nitroglycerin which helped to relieve the pain. En route to the ED he received 4 aspirins which also helped with the pain. He is currently pain-free in the chest but still complains 1/10 aching pain in the left arm. He denies any previous cardiac events. He states that he had a nuclear stress test about 10 years ago that was normal. He denies any previous cardiac catheterizations. Patient denies any associated symptoms such as nausea, vomiting, numbness/ tingling or shortness of breath. He does complain of some dizziness that occurs when standing up and that resolves quickly. The patient denies fevers, chills, sweats, palpitations, claudication, cough, wheezing, shortness of breath , nausea, vomiting, abdominal pain, dysuria, hematuria, urinary retention, paralysis, weakness, numbness and tingling. Physical Exam Vital Signs Date Time Temp Pulse Resp B/P (MAP) Pulse Ox O2 Delivery O2 Flow Rate FiO2 05/10/17 19:45 36.5 48 16 124/71 (88) 96 Room Air 05/10/17 19:27 36.7 51 16 117/70 96 Room Air 05/10/17 16:35 36.7 51 16 117/70 (86) 94 Room Air 05/10/17 16:20 48 18 133/68 96 05/10/17 14:21 50 20 145/84 94 Room Air 05/10/17 12:56 48 22 130/70 95 Room Air 05/10/17 12:55 93 Room Air 05/10/17 12:55 93 Room Air 05/10/17 12:14 45 05/10/17 12:05 37.1 05/10/17 11:35 49 21 128/72 94 Room Air General appearance: +Obese. Well-developed, well-nourished, no apparent distress Head: Normocephalic, atraumatic Eyes: Normal inspection, PERRL, EOMI ENT: Normal ENT inspection, hearing grossly normal, pharynx normal Neck: Supple, no JVD, trachea midline Respiratory/Chest: Lungs clear to auscultation, normal breath sounds, no respiratory distress Cardiovascular: +Bradycardia. Regular rhythm, no gallop, no murmur Abdomen/GI: Normal bowel sounds, non-tender, soft Extremities/Musculoskeletal: Normal inspection, no calf tenderness, no pedal edema Neurological/Psych: Alert, normal mood/affect, oriented x 3 Skin: Normal color, warm/dry, no rash Hospital course 76 y/o male with a history of HTN, HLD, BPH, DM II controlled by diet, and gout who presented to the ED on 05/10 with chest pain. Patient bradycardic on arrival , vital signs otherwise stable. EKG showed sinus bradycardia with anterior T- wave inversions. [facility], T-wave inversions are not new, no significant changes. Chest x-ray shows no acute disease. Cardiac enzymes negative. Stress echocardiogram was completed. Dobutamine stress test and it was negative. The patient has been set up with an outpatient [place] new PCP appointment within the next 1-2 weeks. Hemoglobin A1c was checked and is 7.0. Chest pain--symptomatic bradycardia vs ACS -Cardiac enzymes q8h x 3 negative -Fasting lipid panel WNL other than triglycerides are 200 -EKGs q am and prn with chest pain without signs of ischemia or changes. -Stress echo dobutamine ordered was negative * Reason For Study: Chest pain * -- Conclusions -- * 1. Negative dobutamine stress echo for ischemia at 100% MPHR. * 2. Negative stress ECG for ischemia. Frequent PVCs with dobutamine. Mild dobutamine induced chest tightness. * 3. Normal LV size and function. LVEF 60-65%. Grade I diastolic dysfunction. No significant valvular pathology. -Hold atenolol for now due to bradycardia- at the time of discharge atenolol was cut in half, so he should continue taking 25 mg daily to prevent any rebound tachycardia. Patient should follow up with his PCP for further dose reductions or adjustments. HTN--stable -Continue HCTZ 25 mg PO qd and lisinopril 40 mg PO qd -Atenolol held due to bradycardia, dose reduced as above. Will need pcp to follow BPs. -Cover with hydralazine 10 mg IV q6h prn SBP >180 HLD -Continue simvastatin 10 mg PO qd and colestipol 5 mg PO BID Diabetes mellitus type 2, new dx - Hgb A1C = 7, pt reports being prediabetic and that last time HA1C was checked was ~7months ago. - in service educator consult ordered - Insulin sliding scale - Check BSGs q ac and qhs DVT prophylaxis -Enoxaparin 40 mg SC q24h -THERESE hose and SCDs Code Status: FULL CODE Disposition: From home, lives with , discharge home today Total Time Spent: Greater than 30 minutes This includes examination of the patient, discharge planning, medication reconciliation, and communication with other providers. (Bethanie Gray, GINO) Discharge Instructions Please refer to the electronic Patient Visit Report (Discharge Instructions) for additional information. (Bethanie Gray PA-C) Follow-Up [facility] [place] The appointment has been requested for the patient (Bethanie Gray, GINO) Reviewed: Pt Seen/Exam by Me (Mey Chang MD) History Physician Ink Jet Operator Supervision Note: I interviewed and examined the patient. Discussed with AYDE Gray and agree with findings and plan as documented in the note. Any exceptions or clarifications are listed here: Pt feeling back to normal. No CP or SOB. He does have some left upper extremity constant dull ache. He has a long h/o neck pain, spinal stenosis. VSS, NAD Neck-severely decreased ROM in all directions (chronic), +TTP over left trapezius and rhomboids RRR no mgr CTAB no wcr Abd + BS, soft NT Ect no edema 76 yo male here with atypical CP and LUE pressure. Ruled out for ACS as was having the symptoms for 3 hours constantly prior to admission and trop remained negative x 3. Stress test negative. Suspect MSK in nature due to left sided radiculopathy. Recommend f/u with PCP within 1 week -lightheadedness with standing as complaint on admission may have been from bradycardia related to atenolol--> decrease to 25mg po daily for discharge. Documented By: Mey Chang (Mey Chang MD)
[2017-05-11 15:41] VITALS: BP 103/63; PULSE 76; TEMP 36.6; O2SAT 96
--- NOTE | 2017-05-11 16:05 | DOBUTAMINE ECHO ---
*NOTICE TO RECEIVING [employer] This information is strictly Confidential and protected under [place] law. [place] law prohibits you from making any further disclosure of this information unless further disclosure is expressly permitted by the written consent of the person to whom it pertains or is authorized by law. A general authorization for the release of medical or other information is not sufficient for this purpose. Hospital accepts no responsibility if the information is made available to any other person, INCLUDING THE PATIENT. Interpretation Summary * Name: MARIAMA PEARCE Study Date: 05/11/2017 01:42 PM * Patient Location: [facility]\\[id number] * : 1940 (M/d/yyyy) Gender: Male Height: 70 in * Age: 76 yrs Ethnicity: [place] Weight: 230 lb * Ordering Physician: Bethanie Herrera * Referring Physician: Self, Referred * Performed By: Dharmesh Curtis RCS * * Reason For Study: Chest pain * -- Conclusions -- * 1. Negative dobutamine stress echo for ischemia at 100% MPHR. * 2. Negative stress ECG for ischemia. Frequent PVCs with dobutamine. Mild dobutamine induced chest tightness. * 3. Normal LV size and function. LVEF 60-65%. Grade I diastolic dysfunction. No significant valvular pathology. Procedure Details * A contrast injection of Definity was performed to improve assessment of LV function. * Contrast was injected into an intravenous site in the left arm. * Expiration date [id number]. * One vial of Definity ultrasound contrast was diluted in normal saline to a total volume of 10 ml. A total of '7' ml of solution was administered during imaging. * Lot # [id number] of Definity utilized for procedure. * The attending nurse who injected the contrast agent was Carrie Rodriguez RN. Left Ventricular Findings with Stress * This was essentially a normal study. Left Ventricle * The left ventricle is grossly normal size. * There is normal left ventricular wall thickness. * Ejection Fraction = 60-65%. * The left ventricular ejection fraction increases normally with stress. The left ventricular end-systolic cavity size reduces post-stress (normal response). The left ventricular wall motion with stress is normal. * A full diastolic examination was done with clinical findings of Class I diastolic dysfunction. * Resting wall motion: Normal. Stress wall motion: Appropriate increase in Left ventricular systolic function and decrease in cavity size. No stress induced segmental wall motion abnormalities. Right Ventricle * The right ventricle is not well visualized. Mitral Valve * The mitral valve is grossly normal. * There is mild mitral annular calcification. * Mitral stenosis is absent. * Significant mitral regurgitation is absent. Tricuspid Valve * The tricuspid valve is not well visualized. * Significant tricuspid regurgitation is absent. Aortic Valve * The aortic valve is not well visualized. * No hemodynamically significant valvular aortic stenosis. * There is no significant aortic regurgitation. Pulmonic Valve * The pulmonary valve is inadequately visualized, but the Doppler data is adequate for interpretation. * There is no significant pulmonary regurgitation. Great Vessels * The aortic root and proximal ascending aorta are normal sized. Pericardium * There is no pericardial effusion. Stress Parameters * Sinus bradycardia, left axis deviation, incomplete RBBB, nonspecific ST abnormality. * Arrhythmia induced during stress: frequent PVC's. * Stress ECG: No ST changes. No arrhythmias. * The stress portion of this study was personally supervised by the undersigned interpreting physician. * Rest heart rate was '54' BPM. * Rest blood pressure was '145/74' * Maximum heart rate achieved was 146 bpm. * Maximum heart rate was 100 % of maximum age-predicted heart rate. * Maximum blood pressure was '145/74' * Maximum Dobutamine infusion rate was '40' mcg/kg/min. * A total of 0.5 mg of intravenous Atropine was used to supplement Dobutamine for heart rate response. * Dobutamine infusion was terminated due to achieving target heart rate * A total of 5 mg of IV Metoprolol was administered to reverse Dobutamine-induced tachycardia. * The patient did not exhibit any symptoms during drug infusion. Left Ventricular Findings with Stress * The study was technically good with many images being of high quality. MMode 2D Measurements and Calculations IVSd 0.96 cm LVIDd 5.1 cm LVIDs 3.0 cm LVPWd 0.92 cm IVS/LVPW 1.0 FS 40.2 % EDV(Teich) 123.7 ml ESV(Teich) 36.4 ml EF(Teich) 70.6 % EDV(cubed) 132.5 ml ESV(cubed) 28.3 ml EF(cubed) 78.6 % LV mass(C)d 172.4 grams LV mass(C)dI 77.8 grams/m\S\2 SV(Teich) 87.3 ml SI(Teich) 39.4 ml/m\S\2 SV(cubed) 104.1 ml SI(cubed) 47.0 ml/m\S\2 Ao root diam 3.0 cm Ao root area 7.2 cm\S\2 LVOT diam 2.1 cm LVOT area 3.4 cm\S\2 Doppler Measurements and Calculations MV E max manjeet 59.9 cm/sec MV A max manjeet 93.8 cm/sec MV E/A 0.64 MV dec time 0.28 sec Ao V2 max 117.7 cm/sec Ao max PG 5.5 mmHg Ao max PG (full) 2.2 mmHg JEANETTE(V,A) 2.7 cm\S\2 JEANETTE(V,D) 2.7 cm\S\2 LV V1 max PG 3.3 mmHg LV V1 max 91.1 cm/sec
[2017-05-11 18:01] VITALS: BP 103/63; PULSE 76; TEMP 36.6; O2SAT 96
== END 2017-05-11 18:26 | disposition home or self-care (01) ==
LOC: EDBD 11:34 → C.EDC 11:36 → C.MED 14:46 → ENRESERV 15:40 → C.MED 05-11 03:40
PROVIDERS: ADMIT Hospitalist; ATTEND Family Medicine
DX: R07.2 Precordial pain (principal); I10 Essential (primary) hypertension; E78.5 Hyperlipidemia, unspecified; E11.9 Type 2 diabetes mellitus without complications; N40.0 Benign prostatic hyperplasia without lower urinary tract symptoms; M17.0 Bilateral primary osteoarthritis of knee; Z79.82 Long term (current) use of aspirin; Z79.899 Other long term (current) drug therapy; K58.9 Irritable bowel syndrome, unspecified; M10.9 Gout, unspecified; Z82.3 Family history of stroke

== ENCOUNTER 2018-01-13 19:30 | Inpatient (IN) | payer OTHER ==
[~2018-01-13] VITALS: Ht 177.8 cm; Wt 97.5 kg
[~2018-01-13 19:30] MED LIST changes: -BND25 PO; +DIPH25CA5 PO; +MELO15TA10 PO; -SIMV10TA2 PO; +SIMV20TA2 PO; -TRAM-10 PO; -[UNRECOGNIZED DRUG - CODE] TOP
[2018-01-13 20:24] LABS: BASO % 0.2 %; BASO ABS # 0.02 K/uL (0-0.2); EOS % 1.1 %; EOS ABS # 0.09 K/uL (0-0.5); HEMATOCRIT 45.1 % (42-52); HEMOGLOBIN 14.7 g/dL (14.0-18.0); IG# 0.02 K/uL (0.00-0.02); LYMPH % 27.7 %; LYMPH ABS # 2.31 K/uL (1.2-3.4); MEAN CELL VOLUME 93.2 fL (80-100); MEAN CORPUSCULAR HEMOGLOBIN 30.4 pg (25-34); MEAN CORPUSCULAR HGB CONC 32.6 g/dl (32-36); MEAN PLATELET VOLUME 11.4 fL (7.4-10.4); MONO % 13.2 %; NEUT % 57.6 %; NEUT ABS # 4.79 K/uL (1.4-6.5); PLATELET COUNT 164 K/uL (130-400); RED CELL DISTRIBUTION WIDTH CV 13.9 % (11.5-14.5); RED CELL DISTRIBUTION WIDTH SD 46.9 fL (36.4-46.3); WHITE BLOOD COUNT 8.33 K/uL (4.8-10.8)
[2018-01-13] MEDS ORDERED: IBUP-103 PO (20:29)
[2018-01-13] MEDS ORDERED: ATEN-173 PO (20:29)
[2018-01-13 20:34] LABS: PTT PATIENT 25.1 SECONDS (21.0-31.0)
[2018-01-13 20:41] LABS: ALBUMIN 3.5 gm/dl (3.4-5.0); CALCIUM 9.2 mg/dl (8.5-10.1); CREATININE 1.28 mg/dl (0.60-1.40)
[2018-01-13 20:44] LABS: TOTAL PROTEIN 7.7 gm/dl (6.4-8.2)
--- NOTE | 2018-01-13 20:46 | EMERGENCY ROOM VISIT NOTE ---
History Report prepared by Jessica: Aaron Montague Under the Supervision of: Dr. Tan Patel M.D. First contact with patient: 19:40 Chief Complaint: LEG PAIN,LEG INJURY Stated Complaint: RT LEG NOT BEARING WEIGHT History of Present Illness The patient is a 77 year old male with hypertension and diabetes who presents to the Emergency Room with complaints of worsening right leg weakness that started 2 days ago. He states that he has been dizzy upon standing over the past couple days as well, and describes it as a lightheadedness around the back of his head and feeling like he is going to faint. The patient states that he has not passed out and has no history of passing out. He notes that he has been eating and drinking normally, and notes no recent illnesses. The patient states that he feels like his right leg is going to "give out", and the weakness is worst on the lower part of the leg. He says that the weakness/heaviness has been waxing and waning since 2 days ago, and came back much worse around 3 hours ago. The patient says that he has not fallen, and has no pain in the leg. He denies any history of injuries to that leg, and also denies any popping of the joints or swelling. The patient adds that he has arthritis in both of his knees. He adds that he has had ringing in his ears chronically, but it has worsened recently. The patient takes a baby Aspirin daily, but no other blood thinners. Pt denies LOC, headache, fevers, chills, diaphoresis, neck pain, chest pain, breathing difficulties, vision changes, speech changes, nausea, vomiting, abdominal pain, back pain, melena, hematochezia, urinary symptoms, numbness, lymphadenopathy, rash, or other complaints. Source of History: patient Onset: 2 days ago Position: leg (right) Symptom Intensity: feels like going to give out Quality: other (weakness) Timing: other (persistent) Note: Associated symptoms: Dizziness, lightheadedness, feeling like passing out. Review of Systems See HPI for pertinent positives and negatives. A total of ten systems were reviewed and were otherwise negative. Past Medical & Surgical Medical Problems: (1) Ambulatory dysfunction (2) IBS (irritable bowel syndrome) (3) Osteoarthritis (4) Spinal stenosis Family History Diabetes mellitus Hypertension Stroke Social History Smoking Status: Never Smoker Drug Use: none Marital Status: Housing Status: lives with family Occupation Status: retired Current/Historical Medications Scheduled Aspirin (Aspirin Ec), 81 MG PO QAM Atenolol (Tenormin), 25 MG PO QAM Colestipol Hcl (Colestipol Hcl For Oral S), 1 DOSE PO BID Diphenhydramine Hcl (Benadryl), 25 MG PO QAM Hydrochlorothiazide (Hydrochlorothiazide), 25 MG PO QAM Lisinopril (Lisinopril), 40 MG PO QAM Simvastatin (Zocor), 10 MG PO HS Scheduled PRN Ibuprofen Tab (Advil), 200 MG PO UD PRN for Pain or Fever Allergies Coded Allergies: Felodipine (Verified Allergy, Mild, hives, 09/26/14) Flunisolide (Verified Allergy, Unknown, other, 09/26/14) Gabapentin (Verified Adverse Reaction, Mild, GI SYMPTOMS, 01/14/18) Time Last Known Well 3 days ago Stroke t-PA Criteria Reviewed Does NOT meet criteria for t-PA Reason t-PA Not Given Treatment not indicated Physical Exam Vital Signs Date Time Temp Pulse Resp B/P (MAP) Pulse Ox O2 Delivery O2 Flow Rate FiO2 01/13/18 23:06 59 17 96 Room Air 01/13/18 23:01 162/74 01/13/18 22:06 53 17 96 Room Air 01/13/18 22:01 59 14 134/73 95 Room Air 01/13/18 22:00 57 13 01/13/18 21:59 55 15 138/76 95 Room Air 01/13/18 21:14 55 16 121/61 95 Room Air 01/13/18 20:42 56 01/13/18 20:00 95 Room Air 01/13/18 19:33 36.9 62 18 129/64 97 Room Air Physical Exam GENERAL: Awake, alert, well appearing, no distress HENT: Normocephalic, atraumatic. TM's normal. Oropharynx unremarkable. EYES: PERRL. EOMI. Normal conjunctiva. Sclera non-icteric. NECK: Supple. No nuchal rigidity. FROM. No bruit. RESPIRATORY: Breath sounds equal. No wheezes. No rhonchi. CARDIAC: Normal rate. Regular rhythm. No murmurs. No rubs. No JVD. GI: Soft, non distended. No tenderness to palpation. No rebound or guarding. No masses. RECTAL: Deferred. MUSCULOSKELETAL: Unremarkable. No edema. No discoloration. Gross motor strength symmetric. NEURO: Cranial nerves 2-12 grossly intact. Normal sensorium. No sensory or motor deficits noted. Speech normal. No pronator drift. No drift in upper extremities. Normal rapid alternating movements in upper extremities. Right heel to left traore there is some difficulty performing that task. There is right leg weakness and drift. SKIN: No rash or jaundice noted. LYMPH: No adenopathy. Medical Decision & Procedures ER Provider Diagnostic Interpretation: Radiology results as stated below per my review and radiologist interpretation: HEAD WITHOUT CONTRAST (CT) CLINICAL HISTORY: 77 years-old Male with right leg weakness, dizziness, ?cva. Acute weakness and dizziness with strokelike symptoms TECHNIQUE: Multiple axial CT images of the head were obtained without contrast. A dose lowering technique was utilized adhering to the principles of ALARA. CT DOSE: 614.27 mGy.cm COMPARISON: None. FINDINGS: No acute intracranial hemorrhage, midline shift, intracranial mass, hydrocephalus, territorial ischemia or abnormal extra-axial collection. Moderate atrophy with ex vacuo ventriculomegaly. Cerebral vascular calcifications are seen at the level of the skull base. The calvarium is intact. The mastoid air cells, and middle ear cavities are clear. Mild mucosal thickening of the right maxillary sinus. Soft tissues and orbits are unremarkable. IMPRESSION: No acute intracranial abnormality. The above report was generated using voice recognition software. It may contain grammatical, syntax or spelling errors. Electronically signed by: Newton Royal M.D. 01/13/2018 8:59 PM Dictated Date/Time: 01/13/2018 8:57 PM CHEST ONE VIEW PORTABLE HISTORY: 77 years-old Male right leg weakness acute right leg weakness COMPARISON: Chest radiograph 05/10/2017 TECHNIQUE: Portable AP view of the chest FINDINGS: Cardiac silhouette is mildly enlarged, unchanged. Atherosclerosis of the aorta. There is no pneumothorax, pleural effusion, focal airspace consolidation or overt pulmonary edema. Bones of the chest appear grossly intact. Degenerative changes are noted within the shoulders and spine. IMPRESSION: Mild cardiomegaly without acute process. The above report was generated using voice recognition software. It may contain grammatical, syntax or spelling errors. Electronically signed by: Newton Royal M.D. 01/13/2018 9:04 PM Dictated Date/Time: 01/13/2018 9:02 PM Laboratory Results 01/13/18 20:16 Red Blood Count 4.84, Mean Corpuscular Volume 93.2, Mean Corpuscular Hemoglobin 30.4, Mean Corpuscular Hemoglobin Concent 32.6, Mean Platelet Volume 11.4, Neutrophils (%) (Auto) 57.6, Lymphocytes (%) (Auto) 27.7, Monocytes (%) (Auto) 13.2, Eosinophils (%) (Auto) 1.1, Basophils (%) (Auto) 0.2, Neutrophils # (Auto ) 4.79, Lymphocytes # (Auto) 2.31, Monocytes # (Auto) 1.10, Eosinophils # (Auto ) 0.09, Basophils # (Auto) 0.02 01/13/18 20:16 Test 01/13/18 20:16 White Blood Count 8.33 K/uL (4.8-10.8) Red Blood Count 4.84 M/uL (4.7-6.1) Hemoglobin 14.7 g/dL (14.0-18.0) Hematocrit 45.1 % (42-52) Mean Corpuscular Volume 93.2 fL (80-100) Mean Corpuscular Hemoglobin 30.4 pg (25-34) Mean Corpuscular Hemoglobin Concent 32.6 g/dl (32-36) Platelet Count 164 K/uL (130-400) Mean Platelet Volume 11.4 fL (7.4-10.4) Neutrophils (%) (Auto) 57.6 % Lymphocytes (%) (Auto) 27.7 % Monocytes (%) (Auto) 13.2 % Eosinophils (%) (Auto) 1.1 % Basophils (%) (Auto) 0.2 % Neutrophils # (Auto) 4.79 K/uL (1.4-6.5) Lymphocytes # (Auto) 2.31 K/uL (1.2-3.4) Monocytes # (Auto) 1.10 K/uL (0.11-0.59) Eosinophils # (Auto) 0.09 K/uL (0-0.5) Basophils # (Auto) 0.02 K/uL (0-0.2) RDW Standard Deviation 46.9 fL (36.4-46.3) RDW Coefficient of Variation 13.9 % (11.5-14.5) Immature Granulocyte % (Auto) 0.2 % Immature Granulocyte # (Auto) 0.02 K/uL (0.00-0.02) Prothrombin Time 10.7 SECONDS (9.0-12.0) Prothromb Time International Ratio 1.0 (0.9-1.1) Activated Partial Thromboplast Time 25.1 SECONDS (21.0-31.0) Partial Thromboplastin Ratio 1.0 Anion Gap 5.0 mmol/L (3-11) Est Creatinine Clear Calc Drug Dose 59.1 ml/min Estimated GFR () 63.0 Estimated GFR (Non- 54.4 BUN/Creatinine Ratio 15.7 (10-20) Calcium Level 9.2 mg/dl (8.5-10.1) Total Bilirubin 1.3 mg/dl (0.2-1) Aspartate Amino Transf (AST/SGOT) 17 U/L (15-37) Alanine Aminotransferase (ALT/SGPT) 16 U/L (12-78) Alkaline Phosphatase 52 U/L (45-117) Total Protein 7.7 gm/dl (6.4-8.2) Albumin 3.5 gm/dl (3.4-5.0) Globulin 4.2 gm/dl (2.5-4.0) Albumin/Globulin Ratio 0.8 (0.9-2) Laboratory results reviewed by me Medications Administered Medications (Trade) Dose Ordered Sig/Arsalan Route Start Time Stop Time Status Last Admin Dose Admin Aspirin (Aspirin Chew) 324 mg NOW STAT PO 01/13/18 22:30 01/13/18 22:31 DC 01/13/18 22:42 324 MG ECG Per My Interpretation Indication: weakness Rate (beats per minute): 58 Rhythm: sinus bradycardia Findings: no acute ischemic change, left axis deviation, no ectopy ED Course 1940: The patient was evaluated by the 4th year medical student, Delilah Cristobal. 2000: The patient was evaluated in room B3B. A complete history and physical exam was performed. 2229: Aspirin Chew 324 mg PO. 2230: Upon reexamination, the patient and family were amenable to getting a stroke workup. I discussed the test results and treatment plan with them. The patient will be evaluated for further management. 2240: I discussed the patient with Dr. Francoise PAREDES hospitalist - he will evaluate the patient for further treatment. Medical Decision Triage Nursing notes reviewed. The patient's presentation and history were concerning for weakness. Etiologies such as CVA, TIA, metabolic, infection, hypo/hyperglycemia, electrolyte abnormalities, cardiac sources, intracerebral event, toxicologic, neurologic, as well as others were entertained. Patient was evaluated. He has had waxing and waning symptoms for 3 days. He states that he felt worse this evening about 2-1/2 to 3 hours ago. He notes some dizziness. His upper extremities had no neurologic findings. Left lower extremity is doing well. Blood work, ECG, chest x-ray and head CT were performed. Blood work and CT imaging were unremarkable. ECG chest x-ray were negative. The patient did take aspirin prior to arrival. His findings are concerning for CVA. He is out of the therapeutic window as his symptoms really seem to have started 2 days ago although he did have some worsening about 3 hours ago. He will need to have a further workup in the hospital. I discussed this with him and the family and they were in agreement. Consultation was made with internal medicine. The patient was evaluated in the ER for further management. Medication Reconcilliation Current Medication List: was personally reviewed by me Blood Pressure Screening Patient's blood pressure: Normal blood pressure Consults Time Called: 2237 Consulting Physician: Dr. Francoise snell Returned Call: 2240 I discussed the patient with Dr. Francoise snell - he will evaluate the patient for further treatment. Impression Primary Impression: Right leg weakness Additional Impression: Dizziness Scribe Attestation The scribe's documentation has been prepared under my direction and personally reviewed by me in its entirety. I confirm that the note above accurately reflects all work, treatment, procedures, and medical decision making performed by me. Departure Information Dispostion Being Evaluated By Hospitalist Referrals Tyesha Rao C.R.N.P. (PCP) Patient Instructions My [facility] Problem Qualifiers
--- NOTE | 2018-01-13 21:00 | DIAGNOSTIC IMAGING REPORT ---
HEAD WITHOUT CONTRAST (CT) CLINICAL HISTORY: 77 years-old Male with right leg weakness, dizziness, ?cva. Acute weakness and dizziness with strokelike symptoms TECHNIQUE: Multiple axial CT images of the head were obtained without contrast. A dose lowering technique was utilized adhering to the principles of ALARA. CT DOSE: 614.27 mGy.cm COMPARISON: None. FINDINGS: No acute intracranial hemorrhage, midline shift, intracranial mass, hydrocephalus, territorial ischemia or abnormal extra-axial collection. Moderate atrophy with ex vacuo ventriculomegaly. Cerebral vascular calcifications are seen at the level of the skull base. The calvarium is intact. The mastoid air cells, and middle ear cavities are clear. Mild mucosal thickening of the right maxillary sinus. Soft tissues and orbits are unremarkable. IMPRESSION: No acute intracranial abnormality. The above report was generated using voice recognition software. It may contain grammatical, syntax or spelling errors. Electronically signed by: Newton Royal M.D. 01/13/2018 8:59 PM Dictated Date/Time: 01/13/2018 8:57 PM
--- NOTE | 2018-01-13 21:05 | DIAGNOSTIC IMAGING REPORT ---
CHEST ONE VIEW PORTABLE HISTORY: 77 years-old Male right leg weakness acute right leg weakness COMPARISON: Chest radiograph 05/10/2017 TECHNIQUE: Portable AP view of the chest FINDINGS: Cardiac silhouette is mildly enlarged, unchanged. Atherosclerosis of the aorta. There is no pneumothorax, pleural effusion, focal airspace consolidation or overt pulmonary edema. Bones of the chest appear grossly intact. Degenerative changes are noted within the shoulders and spine. IMPRESSION: Mild cardiomegaly without acute process. The above report was generated using voice recognition software. It may contain grammatical, syntax or spelling errors. Electronically signed by: Newton Royal M.D. 01/13/2018 9:04 PM Dictated Date/Time: 01/13/2018 9:02 PM
[2018-01-13] MEDS ORDERED: ASPIRIN 81 MG CHEW PO STA (22:30)
[2018-01-13] MEDS ORDERED: ONDANSETRON INJ 2 MG/ML 2 ML VIAL IV PRN (23:00)
[2018-01-13] MEDS ORDERED: MAGNESIUM HYDROXIDE SUSP 30 ML UDC PO PRN (23:00)
[2018-01-13] MEDS ORDERED: ALUMINUM/MAGNESIUM/SIMETH (MAALOX MAX) 30 ML UDC PO PRN (23:00)
[2018-01-13] MEDS ORDERED: POLYETHYLENE (MIRALAX) 17 GM PACK PO PRN (23:00)
[2018-01-13] MEDS ORDERED: PHARMACIST DISCHARGE MED REC CONSULT PRN (23:00)
[2018-01-13] MEDS ORDERED: ACETAMINOPHEN 325 MG TAB PO PRN (23:00)
[2018-01-14] VITALS (8 sets, daily range): BP systolic 99–158; BP diastolic 54–73; PULSE 50–62; TEMP 36.5–36.7; O2SAT 91–96; Ht 177.8 cm; Wt 97.5 kg
[2018-01-14] MEDS ORDERED: IV FLUIDS COMPLETED PRN (00:30)
--- NOTE | 2018-01-14 00:53 | History and Physical ---
History & Physical Date & Time of Service: Jan 14, 2018 at 00:40 Chief Complaint: Ambulatory Dysfunction, Rt Leg Weakness Primary Care Physician: No Doctor, Assigned History of Present Illness Source: patient, family The is a 77 year old male with a history of hypertension, hyperlipidemia and type 2 diabetes mellitus, who presents with 3 days of right leg weakness. The patient states he was in his usual state of health when he felt his leg being quite weak and as a result stumbling more towards the right side. He denies any sensory changes or pain to the right leg. He denies any injuries or trauma. He denies any back pain or back injuries. He has no pain or radiating symptoms. He has not other peripheral weakness or sensory changes. He denies any double vision or blurred vision. His hearing is unchanging and he does not have vertigo or tinnitus. He denies problems with speech delivery or comprehension. He is swallowing normally. He has no facial numbness of weakness. Given the persistence of his symptoms for the past 3 days, he made the decision to come to the ED or further evaluation. In the ED, a CT brain was negative. The decision was made to admit the patient for CVA rule-out. Past Medical/Surgical History HTN HLD Type 2 Diabetes Mellitus Surgical: Hernia repair Cholecystectomy Family History Diabetes mellitus Hypertension Stroke Social History Smoking Status: Never Smoker Smokeless Tobacco Use: No Alcohol Use: none Drug Use: none Marital Status: Housing status: lives with significant other Occupational Status: retired Immunizations History of Influenza Vaccine: Unknown History of Tetanus Vaccine?: Unknown History of Pneumococcal: Unknown History of Hepatitis B Vaccine: Unknown Multi-Drug Resistant Organisms History of MDRO: No Allergies Coded Allergies: Felodipine (Verified Allergy, Mild, hives, 09/26/14) Flunisolide (Verified Allergy, Unknown, other, 09/26/14) Gabapentin (Verified Adverse Reaction, Mild, GI SYMPTOMS, 01/14/18) Home Medications Scheduled Aspirin (Aspirin Ec), 81 MG PO QAM Atenolol (Tenormin), 25 MG PO QAM Colestipol Hcl (Colestipol Hcl For Oral S), 1 DOSE PO BID Diphenhydramine Hcl (Benadryl), 25 MG PO QAM Hydrochlorothiazide (Hydrochlorothiazide), 25 MG PO QAM Lisinopril (Lisinopril), 40 MG PO QAM Simvastatin (Zocor), 10 MG PO HS Scheduled PRN Ibuprofen Tab (Advil), 200 MG PO UD PRN for Pain or Fever Review of Systems A 10 point review of systems was negative unless stated above. Physical Exam Vital Signs Date Time Temp Pulse Resp B/P (MAP) Pulse Ox O2 Delivery O2 Flow Rate FiO2 01/13/18 23:50 56 01/13/18 23:49 56 16 142/73 98 Room Air 01/13/18 23:06 59 17 96 Room Air 01/13/18 23:01 162/74 01/13/18 22:06 53 17 96 Room Air 01/13/18 22:01 59 14 134/73 95 Room Air 01/13/18 22:00 57 13 01/13/18 21:59 55 15 138/76 95 Room Air 01/13/18 21:14 55 16 121/61 95 Room Air 01/13/18 20:42 56 01/13/18 20:00 95 Room Air 01/13/18 19:33 36.9 62 18 129/64 97 Room Air General Appearance: WD/WN, no apparent distress Head: normocephalic, atraumatic Eyes: normal inspection, EOMI ENT: normal ENT inspection, hearing grossly normal, pharynx normal Neck: supple, no adenopathy, no JVD Respiratory/Chest: lungs clear, no respiratory distress Cardiovascular: regular rate, rhythm, no gallop, no murmur Abdomen/GI: normal bowel sounds, non tender, soft Back: no CVA tenderness, no muscle spasm Extremities/Musculoskelatal: normal inspection, no calf tenderness, no pedal edema 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, alert, normal mood/affect, oriented x 3, + motor weakness (4/5 weakness on right leg in all ROM; normal sensation bilaterally) Skin: normal color, warm/dry, no rash Lymphatic: no adenopathy Diagnostics Laboratory Results Results Past 24 Hours Test 01/13/18 20:16 Range/Units White Blood Count 8.33 4.8-10.8 K/uL Red Blood Count 4.84 4.7-6.1 M/uL Hemoglobin 14.7 14.0-18.0 g/dL Hematocrit 45.1 42-52 % Mean Corpuscular Volume 93.2 80-100 fL Mean Corpuscular Hemoglobin 30.4 25-34 pg Mean Corpuscular Hemoglobin Concent 32.6 32-36 g/dl Platelet Count 164 130-400 K/uL Mean Platelet Volume 11.4 7.4-10.4 fL Neutrophils (%) (Auto) 57.6 % Lymphocytes (%) (Auto) 27.7 % Monocytes (%) (Auto) 13.2 % Eosinophils (%) (Auto) 1.1 % Basophils (%) (Auto) 0.2 % Neutrophils # (Auto) 4.79 1.4-6.5 K/uL Lymphocytes # (Auto) 2.31 1.2-3.4 K/uL Monocytes # (Auto) 1.10 0.11-0.59 K/uL Eosinophils # (Auto) 0.09 0-0.5 K/uL Basophils # (Auto) 0.02 0-0.2 K/uL RDW Standard Deviation 46.9 36.4-46.3 fL RDW Coefficient of Variation 13.9 11.5-14.5 % Immature Granulocyte % (Auto) 0.2 % Immature Granulocyte # (Auto) 0.02 0.00-0.02 K/uL Prothrombin Time 10.7 9.0-12.0 SECONDS Prothromb Time International Ratio 1.0 0.9-1.1 Activated Partial Thromboplast Time 25.1 21.0-31.0 SECONDS Partial Thromboplastin Ratio 1.0 Sodium Level 143 136-145 mmol/L Potassium Level 4.0 3.5-5.1 mmol/L Chloride Level 109 98-107 mmol/L Carbon Dioxide Level 28 21-32 mmol/L Anion Gap 5.0 3-11 mmol/L Blood Urea Nitrogen 20 7-18 mg/dl Creatinine 1.28 0.60-1.40 mg/dl Est Creatinine Clear Calc Drug Dose 59.1 ml/min Estimated GFR () 63.0 Estimated GFR (Non- 54.4 BUN/Creatinine Ratio 15.7 10-20 Random Glucose 96 70-99 mg/dl Calcium Level 9.2 8.5-10.1 mg/dl Total Bilirubin 1.3 0.2-1 mg/dl Aspartate Amino Transf (AST/SGOT) 17 15-37 U/L Alanine Aminotransferase (ALT/SGPT) 16 12-78 U/L Alkaline Phosphatase 52 45-117 U/L Total Protein 7.7 6.4-8.2 gm/dl Albumin 3.5 3.4-5.0 gm/dl Globulin 4.2 2.5-4.0 gm/dl Albumin/Globulin Ratio 0.8 0.9-2 Diagnostic Radiology [~ rep ct add3]] HEAD WITHOUT CONTRAST (CT) CLINICAL HISTORY: 77 years-old Male with right leg weakness, dizziness, ?cva. Acute weakness and dizziness with strokelike symptoms TECHNIQUE: Multiple axial CT images of the head were obtained without contrast. A dose lowering technique was utilized adhering to the principles of ALARA. CT DOSE: 614.27 mGy.cm COMPARISON: None. FINDINGS: No acute intracranial hemorrhage, midline shift, intracranial mass, hydrocephalus, territorial ischemia or abnormal extra-axial collection. Moderate atrophy with ex vacuo ventriculomegaly. Cerebral vascular calcifications are seen at the level of the skull base. The calvarium is intact. The mastoid air cells, and middle ear cavities are clear. Mild mucosal thickening of the right maxillary sinus. Soft tissues and orbits are unremarkable. IMPRESSION: No acute intracranial abnormality. The above report was generated using voice recognition software. It may contain grammatical, syntax or spelling errors. Electronically signed by: Newton Royal M.D. 01/13/2018 8:59 PM Dictated Date/Time: 01/13/2018 8:57 PM The status of this report is Signed. Draft = Not yet reviewed or approved by Radiologist. Signed = Reviewed and approved by Radiologist. EKG Sinus bradycardia Left axis deviation Abnormal ECG When compared with ECG of 11-MAY-2017 07:21, No significant change was found Impression Assessment and Plan 77 year old male with right leg weakness, admitted for CVA rule-out. Our plan is as follows: - Right Leg Weakness: Admit to telemetry for arrhythmia monitoring. MRI brain combo + MRA brain without contrast + MRA neck combo. Neurology consulted, recommendations appreciated. PT and OT evaluations. Will continue current ASA and statin regimen pending neurology recommendations and determination of whether presentation is consistent with CVA. - Hypertension: Continue HCTZ, Atenolol, and Lisinopril - Hyperlipidemia: Continue Simvastatin. - Type 2 Diabetes Mellitus: Currently states he is on medication but doesn't know which medication. States he choses not to take at home because he does not have the means to monitor BSG at home. While admitted, AC/HS, can add SSI if determined to be elevated. Check HbA1c. - DVT prophylaxis: SCD, THERESE, Lovenox - Code Status: Level I Full - Disposition: Telemetry. PT and OT consulted. Attending addendum: I have physically seen this patient, have supervised the medical residents activities, and agree with the H&P unless as otherwise noted. Assessment and Plan: Right leg weakness-- The patient will be admitted to telemetry for serial cardiac enzymes, serial EKG's, cardiac rhythm monitoring and a 2-D echocardiogram with Dopplers. Order MRI of brain combo, MRA neck combo, MRA brain without contrast. Continue aspirin 81 mg daily. Continue simvastatin for elevated cholesterol, check a fasting lipid profile. Continue HCTZ/atenolol and lisinopril for hypertension control. Place on Accu-Cheks before meals and at bedtime for diabetes mellitus, check hemoglobin A1c. Neurologic checks per protocol. Consult licensed master social worker, PT, OT, neurology. Level of Care Telemetry Advanced Directives Existing Advance Directive: No Existing Living Will: No Existing Power of Service Mechanic: No Resuscitation Status FULL RESUSCITATION VTE Prophylaxis VTE Risk Assessment Done? Y/N: Yes Risk Level: Moderate Given or contraindicated: Enoxaparin (Lovenox)SQ
[2018-01-14 06:12] LABS: BASO % 0.3 %; BASO ABS # 0.02 K/uL (0-0.2); EOS % 1.5 %; HEMATOCRIT 39.9 % (42-52); HEMOGLOBIN 13.3 g/dL (14.0-18.0); IG# 0.02 K/uL (0.00-0.02); LYMPH % 32.1 %; LYMPH ABS # 2.16 K/uL (1.2-3.4); MEAN CELL VOLUME 92.1 fL (80-100); MEAN CORPUSCULAR HEMOGLOBIN 30.7 pg (25-34); MEAN CORPUSCULAR HGB CONC 33.3 g/dl (32-36); MEAN PLATELET VOLUME 10.8 fL (7.4-10.4); MONO % 12.2 %; MONO ABS # 0.82 K/uL (0.11-0.59); NEUT % 53.6 %; NEUT ABS # 3.61 K/uL (1.4-6.5); PLATELET COUNT 151 K/uL (130-400); RED CELL DISTRIBUTION WIDTH SD 47.2 fL (36.4-46.3); WHITE BLOOD COUNT 6.73 K/uL (4.8-10.8)
[2018-01-14 06:44] LABS: CALCIUM 8.5 mg/dl (8.5-10.1); CREATININE 1.05 mg/dl (0.60-1.40); POTASSIUM 3.5 mmol/L (3.5-5.1)
[2018-01-14] MEDS: HYDROCHLOROTHIAZIDE 25 MG TAB PO SCH (08:16)
[2018-01-14] MEDS: ASPIRIN 81 MG ECTAB PO SCH (08:16)
[2018-01-14] MEDS: ENOXAPARIN 40 MG/0.4 ML SYR SC SCH ×2 (08:17→08:22)
--- NOTE | 2018-01-14 08:47 | Family Medicine Progress Note ---
Progress Note Date of Service Jan 14, 2018. Subjective Pt evaluation today including: conversation w/ patient Found patient resting comfortably early this morning, later with family at bedside. He denies any current weakness or feeling of dizziness, but says that some dizziness has worsened in the past few days and he ends up feeling like his right leg is going to give out on him. He denies any actual falls with this. Says that his right eye is chronically blurry (and has seen an eye doctor for the same) but no acute vision issues, headaches, neck pains, speech/ swallow problems, CP, SOB, or other acute concerns. Constitutional: No fever, No chills ENT: No hearing loss, No sore throat Respiratory: No cough, No shortness of breath Cardiovascular: No chest pain, No edema Abdomen: No pain, No nausea, No vomiting Neurologic: + weakness (? right leg), + balance problems, No numbness/ tingling Medications Current Inpatient Medications Medications (Trade) Dose Ordered Sig/Arsalan Route Start Time Stop Time Status Last Admin Dose Admin Miscellaneous Information (Pharmacist Discharge Med Rec Consult) 1 ea UD PRN N/A 01/13/18 23:00 02/12/18 22:59 Enoxaparin Sodium (Lovenox Inj) 40 mg Q24H SC 01/14/18 09:00 02/13/18 08:59 Acetaminophen (Tylenol Tab) 650 mg Q4H PRN PO 01/13/18 23:00 02/12/18 22:59 Al Hydrox/Mg Hydrox/Simethicone (Maalox Max Susp) 15 ml Q4H PRN PO 01/13/18 23:00 02/12/18 22:59 Magnesium Hydroxide (Milk Of Magnesia Susp) 30 ml Q12H PRN PO 01/13/18 23:00 02/12/18 22:59 Ondansetron HCl (Zofran Inj) 4 mg Q6H PRN IV 01/13/18 23:00 02/12/18 22:59 Polyethylene (Miralax Powder Packet) 17 gm DAILY PRN PO 01/13/18 23:00 02/12/18 22:59 Aspirin (Ecotrin Tab) 81 mg QAM PO 01/14/18 09:00 02/13/18 08:59 01/14/18 08:16 81 MG Atenolol (Tenormin Tab) 25 mg QAM PO 01/14/18 09:00 02/13/18 08:59 Colestipol HCl (Colestid Powder Packet) 5 gm BID@1000,2200 PO 01/14/18 10:00 02/13/18 09:59 Diphenhydramine HCl (Benadryl Cap) 25 mg QAM PO 01/14/18 09:00 02/13/18 08:59 01/14/18 08:16 25 MG Hydrochlorothiazide (Hydrochlorothiazide Tab) 25 mg QAM PO 01/14/18 09:00 02/13/18 08:59 01/14/18 08:16 25 MG Lisinopril (Zestril Tab) 40 mg QAM PO 01/14/18 09:00 02/13/18 08:59 Simvastatin (Zocor Tab) 10 mg HS PO 01/14/18 21:00 02/13/18 20:59 Miscellaneous (Iv Fluids Completed) 1 ea PRN PRN N/A 01/14/18 00:30 01/14/19 00:29 Objective Vital Signs Date Time Temp Pulse Resp B/P (MAP) Pulse Ox O2 Delivery O2 Flow Rate FiO2 01/14/18 07:50 36.6 51 19 111/54 (73) 95 Room Air 01/14/18 04:06 36.5 54 18 118/73 (88) 96 Room Air 01/14/18 04:00 96 Room Air 01/14/18 00:08 36.5 62 18 158/72 96 Room Air 01/13/18 23:50 56 01/13/18 23:49 56 16 142/73 98 Room Air 01/13/18 23:06 59 17 96 Room Air 01/13/18 23:01 162/74 01/13/18 22:06 53 17 96 Room Air 01/13/18 22:01 59 14 134/73 95 Room Air 01/13/18 22:00 57 13 01/13/18 21:59 55 15 138/76 95 Room Air 01/13/18 21:14 55 16 121/61 95 Room Air 01/13/18 20:42 56 01/13/18 20:00 95 Room Air 01/13/18 19:33 36.9 62 18 129/64 97 Room Air Physical Exam Notes: General Appearance: Awake, alert & oriented, comfortable in general, NAD. CV: +S1S2 RRR, no murmur. No peripheral edema. Pulm: Clear to auscultation throughout. Abdomen: +BS, soft, non-tender, non-distended. Extremities: No pedal edema or calf tenderness. 4+/5 strength in right upper and lower extremity. 5/5 in left upper and lower extremity. Distal sensation equal and intact bilaterally. Symmetrical smile and facial sensation bilaterally. Neuro: No gross neuro deficits. Lines: Right arm PIV. Laboratory Results 01/14/18 05:29 Red Blood Count 4.33, Mean Corpuscular Volume 92.1, Mean Corpuscular Hemoglobin 30.7, Mean Corpuscular Hemoglobin Concent 33.3, Mean Platelet Volume 10.8, Neutrophils (%) (Auto) 53.6, Lymphocytes (%) (Auto) 32.1, Monocytes (%) (Auto) 12.2, Eosinophils (%) (Auto) 1.5, Basophils (%) (Auto) 0.3, Neutrophils # (Auto ) 3.61, Lymphocytes # (Auto) 2.16, Monocytes # (Auto) 0.82, Eosinophils # (Auto ) 0.10, Basophils # (Auto) 0.02 01/14/18 05:29 Test 01/13/18 20:16 01/14/18 05:29 01/14/18 07:14 Prothrombin Time 10.7 SECONDS (9.0-12.0) Prothromb Time International Ratio 1.0 (0.9-1.1) Activated Partial Thromboplast Time 25.1 SECONDS (21.0-31.0) Partial Thromboplastin Ratio 1.0 Total Bilirubin 1.3 mg/dl (0.2-1) Aspartate Amino Transf (AST/SGOT) 17 U/L (15-37) Alanine Aminotransferase (ALT/SGPT) 16 U/L (12-78) Alkaline Phosphatase 52 U/L (45-117) Total Protein 7.7 gm/dl (6.4-8.2) Albumin 3.5 gm/dl (3.4-5.0) Globulin 4.2 gm/dl (2.5-4.0) Albumin/Globulin Ratio 0.8 (0.9-2) White Blood Count 6.73 K/uL (4.8-10.8) Red Blood Count 4.33 M/uL (4.7-6.1) Hemoglobin 13.3 g/dL (14.0-18.0) Hematocrit 39.9 % (42-52) Mean Corpuscular Volume 92.1 fL (80-100) Mean Corpuscular Hemoglobin 30.7 pg (25-34) Mean Corpuscular Hemoglobin Concent 33.3 g/dl (32-36) Platelet Count 151 K/uL (130-400) Mean Platelet Volume 10.8 fL (7.4-10.4) Neutrophils (%) (Auto) 53.6 % Lymphocytes (%) (Auto) 32.1 % Monocytes (%) (Auto) 12.2 % Eosinophils (%) (Auto) 1.5 % Basophils (%) (Auto) 0.3 % Neutrophils # (Auto) 3.61 K/uL (1.4-6.5) Lymphocytes # (Auto) 2.16 K/uL (1.2-3.4) Monocytes # (Auto) 0.82 K/uL (0.11-0.59) Eosinophils # (Auto) 0.10 K/uL (0-0.5) Basophils # (Auto) 0.02 K/uL (0-0.2) RDW Standard Deviation 47.2 fL (36.4-46.3) RDW Coefficient of Variation 14.0 % (11.5-14.5) Immature Granulocyte % (Auto) 0.3 % Immature Granulocyte # (Auto) 0.02 K/uL (0.00-0.02) Anion Gap 7.0 mmol/L (3-11) Est Creatinine Clear Calc Drug Dose 71.5 ml/min Estimated GFR () 80.1 Estimated GFR (Non- 69.1 BUN/Creatinine Ratio 17.9 (10-20) Calcium Level 8.5 mg/dl (8.5-10.1) Triglycerides Level 158 mg/dl (0-150) Cholesterol Level 135 mg/dl (0-200) HDL Cholesterol 38 mg/dl LDL Cholesterol, Calculated 65 mg/dl VLDL Cholesterol, Calculated 32 mg/dl Cholesterol/HDL Ratio 3.6 Bedside Glucose 110 mg/dl (70-99) Assessment and Plan 77 yo male admitted on 14Jan2018 for reported right leg weakness. PMH: HTN, HLD, DM2. PSH: Hernia repair, cholecystectomy. Right leg weakness / dizziness: Per H&P, patient c/o right leg weakness and falling towards his right side. On restaurant general manager exam, had some mild right upper and lower extremity weakness. On late morning exam, had more left arm weakness than right along with bilateral poor quad strength. Neurology consulted at time of admit. See their full note, but they note more lightheadedness / dizziness than right leg weakness and that he had normal strength throughout. They recommended PT/OT and orthostatics, along with possibly meclizine initially. Head imaging unremarkable thus far. 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 They agreed with further imaging and possible referral to vascular surgery as needed. - Is on ASA 81. See HTN meds below. - Patient initially was not eager to remain in the hospital for this evaluation , but so far has been convinced to stay at least for the workup. Family at bedside agreed as well. Hypertension: Continue HCTZ, Atenolol, and Lisinopril. Hyperlipidemia: Continue Simvastatin. Mildly elevated TG here. Type 2 Diabetes Mellitus: Patient is unclear of his home meds for same. Is not monitoring home accuchecks as well. Glc here 108-132. HbA1c here pending. Code status: Full code. Diet: AHA diet, DM2 diet. DVT prophy: Lovenox. PT/OT: Ordered. Disbo: Admit for observation on telemetry. Lives at home with his , son relatively nearby Resident Physician Supervision Note: I interviewed and examined the patient. Discussed with Dr. Johnston and agree with findings and plan as documented in the note. Any exceptions or clarifications are listed here: None Patient presented with transient neurological symptoms of since resolved imaging studies of his brain revealed a concern for possible right internal carotid artery severe stenosis at its origin we are waiting additional studies of this to refer confirm or refute the suggestion on MRA neurology is in agreement of additional studies and if found prompting a vascular surgery consultation Patient however is somewhat back to his usual baseline is able to ambulate without difficulty and no focal neurological deficits are seen temperature 36 5 pulse 54 respiration rate 18 BP 118/73 physical testing is awake alert and appropriate cranial nerves are intact he does give mention of some transient eye blurriness which was improved by changing his prescription and is up, chest. Upon further focal testing he has some mild dysmetria of his left finger to nose and also some mild left hamstring weakness he has bilateral quadricep weakness which likely may be deconditioning he has no sensory deficits Possible TIA associated with perhaps right internal carotid artery stenosis patient will maintain medications associate with cerebrovascular disease such as antiplatelet high-dose statin will stop his blood pressure medication and allow permissive hypertension if perfusion is an issue and await further testing to see if vascular surgery consultation should be undertaken Documented By: Joaquim Phillips . Resident Tracking Resident Involvement: Resident Care Provided Care Provided: Adult Hospital Medicine (inpatient)
[2018-01-14] MEDS: LISINOPRIL 40 MG TAB PO SCH (08:51)
--- NOTE | 2018-01-14 10:51 | DIAGNOSTIC IMAGING REPORT ---
MR ANGIOGRAPHY OF THE [place] NO CONTRAST CLINICAL HISTORY: Stroke COMPARISON STUDY: None. A 3-D [id number] MR angiographic sequence of the [place] was performed. Both the source and projection images were reviewed. There is no evidence of major intracranial branch occlusion. There is no evidence of intracranial stenosis. There are no lesions suspicious for aneurysm. IMPRESSION: Unremarkable MR angiography of the [place]. Electronically signed by: Jaime Mathew M.D. 01/14/2018 10:50 AM Dictated Date/Time: 01/14/2018 10:48 AM
--- NOTE | 2018-01-14 11:25 | DIAGNOSTIC IMAGING REPORT ---
MRI OF THE BRAIN WITHOUT AND WITH IV CONTRAST CLINICAL HISTORY: Right-sided weakness. Dizziness. Suspected stroke. COMPARISON STUDY: Noncontrast head CT dated 01/13/2018 TECHNIQUE: MRI of the brain was performed from the vertex to the skull base utilizing various T1 and T2 weighted sequences. Following the IV administration of 10 mL of Gadavist contrast, additional enhanced images were obtained. FINDINGS: Sagittal T1, axial diffusion, proton density and T2 weighted axial, coronal FLAIR, and pre and post axial T1-weighted images were acquired. These were supplemented with post gadolinium coronal T1 weighted images. No intra or extra-axial mass lesions are visualized. Axial diffusion-weighted images reveal no evidence of acute or subacute infarction. There is no evidence of ventricular dilatation. Proton density T2-weighted and FLAIR images reveal no significant intraparenchymal signal abnormalities. There are no abnormal flow voids. There is no evidence of pathologic enhancement. There is a left malar sebaceous cyst IMPRESSION: Normal MRI of the brain for age Electronically signed by: Jaime Mathew M.D. 01/14/2018 11:24 AM Dictated Date/Time: 01/14/2018 11:22 AM
[2018-01-14] MEDS ORDERED: GADAVIST IV PRN (11:30)
[2018-01-14] MEDS: COLESTIPOL HCL 5 GM POWDER PACK PO SCH ×2 (11:45→20:32)
--- NOTE | 2018-01-14 11:46 | DIAGNOSTIC IMAGING REPORT ---
NECK MRA HISTORY: Right-sided weakness. Dizziness. Stroke like symptoms. TECHNIQUE: [id number] and gadolinium-enhanced MRA of the neck was performed both before and after the intravenous administration of contrast. All measurements were calculated based on NASCET criteria. The patient was administered 10 cc of intravenous Gadavist COMPARISON STUDY: None. FINDINGS: The aortic arch and proximal great vessels are widely patent. There is no evidence of hemodynamically significant left carotid stenosis. There is a suspected critical stenosis of the right internal carotid artery origin. As there is an equivocal artifact at this level, correlation with a carotid Doppler study or CT angiography is recommended in follow-up. There is no evidence of vertebral artery stenosis or dissection. IMPRESSION: 1. 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 As there is an equivocal artifact at this level, correlation with a carotid Doppler study or CT angiography of the neck is recommended in follow-up. Electronically signed by: Jaime Mathew M.D. 01/14/2018 11:45 AM Dictated Date/Time: 01/14/2018 11:39 AM
--- NOTE | 2018-01-14 11:57 | Neurology Consultation ---
Neurology Consultation Date of Consultation: Jan 14, 2018. Attending Physician: Antoine Owusu M.D. Primary Care Physician: No Doctor, Assigned Reason for Consultation: Consultation for right leg weakness and concern for stroke History of Present Illness Source: patient, hospital records Chief complaint by the patient is worsening dizziness. Patient denies any focal weakness This is a 77-year-old male who presents for the above evaluation. Reports that he has had lightheadedness and dizziness in the past but since it was getting much more frequent and severe. Reports that is intermittent. Can last up to an hour. Typically happens when he sitting or standing. Sometimes is described more as lightheadedness with position change and at other times described as a spinning sensation causing him to fall to the right. He reports that he has had ringing in his ears for years but denies any significant hearing loss or other ear sensations. He denies any abnormal headaches. Reports he has had some blurriness in his right eye more than his left for a while and recently had an ophthalmology examination that was unremarkable. Denies any numbness in his extremities. Denies any weakness. Does report some mild chronic low back pain and bilateral knee pain for which she takes Advil for. Denies any changes with cognition or speech. No trouble swallowing. No loss of consciousness. Reports that in the past his systolic blood pressure used to run in the 120s but more recently has been running in the 110's. Denies any chest pain, heart palpitations, shortness of breath with these episodes. Past Medical/Surgical History Medical Problems: (1) Dizziness Status: Acute (2) Precordial chest pain Status: Acute (3) Right leg weakness Status: Acute Hypertension, dyslipidemia, diabetes type 2 Family History Family history of diabetes, hypertension and stroke Social History Patient is normally independent in his activities of daily living. No tobacco, no alcohol, no illegal drug use. Drug Use: none Marital Status: Housing Status: lives with family Occupation Status: retired Allergies Coded Allergies: Felodipine (Verified Allergy, Mild, hives, 09/26/14) Flunisolide (Verified Allergy, Unknown, other, 09/26/14) Gabapentin (Verified Adverse Reaction, Mild, GI SYMPTOMS, 01/14/18) Current Inpatient Medications Current Inpatient Medications Medications (Trade) Dose Ordered Sig/Arsalan Route Start Time Stop Time Status Last Admin Dose Admin Miscellaneous Information (Pharmacist Discharge Med Rec Consult) 1 ea UD PRN N/A 01/13/18 23:00 02/12/18 22:59 Enoxaparin Sodium (Lovenox Inj) 40 mg Q24H SC 01/14/18 09:00 02/13/18 08:59 Acetaminophen (Tylenol Tab) 650 mg Q4H PRN PO 01/13/18 23:00 02/12/18 22:59 Al Hydrox/Mg Hydrox/Simethicone (Maalox Max Susp) 15 ml Q4H PRN PO 01/13/18 23:00 02/12/18 22:59 Magnesium Hydroxide (Milk Of Magnesia Susp) 30 ml Q12H PRN PO 01/13/18 23:00 02/12/18 22:59 Ondansetron HCl (Zofran Inj) 4 mg Q6H PRN IV 01/13/18 23:00 02/12/18 22:59 Polyethylene (Miralax Powder Packet) 17 gm DAILY PRN PO 01/13/18 23:00 02/12/18 22:59 Aspirin (Ecotrin Tab) 81 mg QAM PO 01/14/18 09:00 02/13/18 08:59 01/14/18 08:16 81 MG Atenolol (Tenormin Tab) 25 mg QAM PO 01/14/18 09:00 02/13/18 08:59 01/14/18 08:51 25 MG Colestipol HCl (Colestid Powder Packet) 5 gm BID@1000,2200 PO 01/14/18 10:00 02/13/18 09:59 Diphenhydramine HCl (Benadryl Cap) 25 mg QAM PO 01/14/18 09:00 02/13/18 08:59 01/14/18 08:16 25 MG Hydrochlorothiazide (Hydrochlorothiazide Tab) 25 mg QAM PO 01/14/18 09:00 02/13/18 08:59 01/14/18 08:16 25 MG Lisinopril (Zestril Tab) 40 mg QAM PO 01/14/18 09:00 02/13/18 08:59 01/14/18 08:51 40 MG Simvastatin (Zocor Tab) 10 mg HS PO 01/14/18 21:00 02/13/18 20:59 Miscellaneous (Iv Fluids Completed) 1 ea PRN PRN N/A 01/14/18 00:30 01/14/19 00:29 Gadobutrol (Gadavist) 10 mmol UD PRN IV 01/14/18 11:30 01/18/18 11:29 Review of Systems Complete review of systems otherwise negative except for the above-noted in HPI Physical Exam Vital Signs (Past 24 Hrs): Date Time Temp Pulse Resp B/P (MAP) Pulse Ox O2 Delivery O2 Flow Rate FiO2 01/14/18 11:27 36.6 58 18 116/68 (84) 95 Room Air 01/14/18 08:00 Room Air 01/14/18 07:50 36.6 51 19 111/54 (73) 95 Room Air 01/14/18 04:06 36.5 54 18 118/73 (88) 96 Room Air 01/14/18 04:00 96 Room Air 01/14/18 00:08 36.5 62 18 158/72 96 Room Air 01/13/18 23:50 56 01/13/18 23:49 56 16 142/73 98 Room Air 01/13/18 23:06 59 17 96 Room Air 01/13/18 23:01 162/74 01/13/18 22:06 53 17 96 Room Air 01/13/18 22:01 59 14 134/73 95 Room Air 01/13/18 22:00 57 13 01/13/18 21:59 55 15 138/76 95 Room Air 01/13/18 21:14 55 16 121/61 95 Room Air 01/13/18 20:42 56 01/13/18 20:00 95 Room Air 01/13/18 19:33 36.9 62 18 129/64 97 Room Air Gen.: Patient is alert and sitting in bed, in no acute distress. HEENT: Normocephalic /atraumatic, no scleral icterus Heart: Regular rate and rhythm Extremities: No gross deformities or rashes noted Neurological examination: Mental status: Patient is alert and oriented x3. Attention and concentration normal for the situation. Good fund of knowledge. Remote and recent memory intact. Speech is fluent without any dysarthria or aphasia noted Cranial nerve: Funduscopic examination was unremarkable. No papilledema. Pupils equally round and reactive to light. Extraocular muscles intact without nystagmus. No facial asymmetry noted. Facial sensation intact. Tongue is midline. Good palatal elevation. Good shoulder shrug bilaterally. Hearing grossly intact to voice. Strength: 5/5 both proximal and distally in all extremities (initially the patient did not always give good strength effort and sometimes had give way weakness, but with encouragement strength was clearly 5/5 through out). There is no arm drift or leg drift. Tone is normal. Sensation: Grossly intact to light touch in all extremities. Deep tendon reflexes: +1 in bilateral biceps, brachioradialis and patellar. Toes were downgoing to plantar stimulation Coordination: Patient had good finger to nose without dysmetria. Good heel to traore without ataxia. Station within the bed was normal Sitting the patient up in bed gave some reproducible lightheadedness. No vertigo on today's examination. [id number] maneuver did not reproduce dizziness Laboratory Results Past 24 Hours: 01/14/18 05:29 Red Blood Count 4.33, Mean Corpuscular Volume 92.1, Mean Corpuscular Hemoglobin 30.7, Mean Corpuscular Hemoglobin Concent 33.3, Mean Platelet Volume 10.8, Neutrophils (%) (Auto) 53.6, Lymphocytes (%) (Auto) 32.1, Monocytes (%) (Auto) 12.2, Eosinophils (%) (Auto) 1.5, Basophils (%) (Auto) 0.3, Neutrophils # (Auto ) 3.61, Lymphocytes # (Auto) 2.16, Monocytes # (Auto) 0.82, Eosinophils # (Auto ) 0.10, Basophils # (Auto) 0.02 01/14/18 05:29 Test 01/13/18 20:16 01/14/18 05:29 01/14/18 11:20 Prothrombin Time 10.7 SECONDS (9.0-12.0) Prothromb Time International Ratio 1.0 (0.9-1.1) Activated Partial Thromboplast Time 25.1 SECONDS (21.0-31.0) Partial Thromboplastin Ratio 1.0 Total Bilirubin 1.3 mg/dl (0.2-1) Aspartate Amino Transf (AST/SGOT) 17 U/L (15-37) Alanine Aminotransferase (ALT/SGPT) 16 U/L (12-78) Alkaline Phosphatase 52 U/L (45-117) Total Protein 7.7 gm/dl (6.4-8.2) Albumin 3.5 gm/dl (3.4-5.0) Globulin 4.2 gm/dl (2.5-4.0) Albumin/Globulin Ratio 0.8 (0.9-2) White Blood Count 6.73 K/uL (4.8-10.8) Red Blood Count 4.33 M/uL (4.7-6.1) Hemoglobin 13.3 g/dL (14.0-18.0) Hematocrit 39.9 % (42-52) Mean Corpuscular Volume 92.1 fL (80-100) Mean Corpuscular Hemoglobin 30.7 pg (25-34) Mean Corpuscular Hemoglobin Concent 33.3 g/dl (32-36) Platelet Count 151 K/uL (130-400) Mean Platelet Volume 10.8 fL (7.4-10.4) Neutrophils (%) (Auto) 53.6 % Lymphocytes (%) (Auto) 32.1 % Monocytes (%) (Auto) 12.2 % Eosinophils (%) (Auto) 1.5 % Basophils (%) (Auto) 0.3 % Neutrophils # (Auto) 3.61 K/uL (1.4-6.5) Lymphocytes # (Auto) 2.16 K/uL (1.2-3.4) Monocytes # (Auto) 0.82 K/uL (0.11-0.59) Eosinophils # (Auto) 0.10 K/uL (0-0.5) Basophils # (Auto) 0.02 K/uL (0-0.2) RDW Standard Deviation 47.2 fL (36.4-46.3) RDW Coefficient of Variation 14.0 % (11.5-14.5) Immature Granulocyte % (Auto) 0.3 % Immature Granulocyte # (Auto) 0.02 K/uL (0.00-0.02) Anion Gap 7.0 mmol/L (3-11) Est Creatinine Clear Calc Drug Dose 71.5 ml/min Estimated GFR () 80.1 Estimated GFR (Non- 69.1 BUN/Creatinine Ratio 17.9 (10-20) Calcium Level 8.5 mg/dl (8.5-10.1) Triglycerides Level 158 mg/dl (0-150) Cholesterol Level 135 mg/dl (0-200) HDL Cholesterol 38 mg/dl LDL Cholesterol, Calculated 65 mg/dl VLDL Cholesterol, Calculated 32 mg/dl Cholesterol/HDL Ratio 3.6 Bedside Glucose 132 mg/dl (70-99) Imaging MRI of the brain report and images reviewed by myself and is completely normal for age. There is no signs of acute or chronic strokes. MRA of the head is also normal. MRA of the neck images were reviewed by myself and appear to be normal. Radiology interpretation is still pending. Total cholesterol 135, LDL 65, HDL 38, total cholesterol 158, hemoglobin A1c is pending Impression This is a 77-year-old male who reports that he presented to the emergency room for worsening intermittent dizziness since (not leg weakness). Described as a combination of sometimes lightheadedness and sometimes vertigo with position changes and sometimes a sense of falling to the right. Patient denies any focal weakness or numbness. Plan Follow-up official radiology read of MRA of the neck, but per my interpretation it does not appear that the patient has any vascular cause for his intermittent dizziness. Recommend checking orthostatic vitals. Recommend physical therapy evaluation for dizziness and vertigo Could consider meclizine as needed for symptomatic treatment of dizziness If the patient continues to have dizziness refractory to conservative therapy, could consider nonurgent cardiology evaluation as an outpatient to rule out other cardiogenic causes for dizziness No additional neurological testing or follow-up needed at this time. Thank you for allowing me to participate in this patient's care. If there is any questions or concerns, feel free to call/page me
[2018-01-14] MEDS ORDERED: OPTIRAY 320 IV PRN (12:30)
--- NOTE | 2018-01-14 15:01 | DIAGNOSTIC IMAGING REPORT ---
CT NECK ANGIO WITH CONTRAST CLINICAL HISTORY: Possible cortical right internal carotid artery stenosis versus artifact COMPARISON STUDY: MR angiography neck dated 01/14/2018 TECHNIQUE: CT angiography was performed from the aortic arch to the skull base. MIP imaging was performed. The patient was scanned in a dynamic helical fashion during intravenous administration of 93 cc of Optiray 320. A dose lowering technique was utilized adhering to the principles of ALARA. CT DOSE: 519.14 mGy.cm Technique: CT angiogram of the carotid and vertebral arteries was obtained using intravenous contrast and 3-D reconstruction. NASCET criteria was utilized. Findings: There is a critical 90+ percent stenosis of the right internal carotid artery origin. The left carotid revealed no evidence of hemodynamic significant stenosis. There is no evidence of aneurysm. There is no evidence of dissection. There is no evidence of hemodynamically significant vertebral stenosis. There is no evidence of vertebral dissection. IMPRESSION: This examination confirms a critical 90+ percent stenosis of the right internal carotid artery origin. Electronically signed by: Jaime Mathew M.D. 01/14/2018 2:59 PM Dictated Date/Time: 01/14/2018 2:53 PM
[2018-01-14] MEDS ORDERED: LORAZEPAM 0.5 MG TAB PO PRN (16:30)
[2018-01-14] MEDS ORDERED: SIMVASTATIN 10 MG TAB PO SCH (21:00)
[2018-01-15 03:27] VITALS: BP 101/55; PULSE 50; TEMP 36.5; O2SAT 96
[2018-01-15 06:39] LABS: BASO % 0.3 %; BASO ABS # 0.03 K/uL (0-0.2); EOS % 1.5 %; EOS ABS # 0.14 K/uL (0-0.5); HEMATOCRIT 40.6 % (42-52); HEMOGLOBIN 13.6 g/dL (14.0-18.0); IG# 0.02 K/uL (0.00-0.02); LYMPH % 36.3 %; LYMPH ABS # 3.29 K/uL (1.2-3.4); MEAN CELL VOLUME 91.9 fL (80-100); MEAN CORPUSCULAR HEMOGLOBIN 30.8 pg (25-34); MEAN CORPUSCULAR HGB CONC 33.5 g/dl (32-36); MEAN PLATELET VOLUME 10.9 fL (7.4-10.4); MONO % 11.5 %; MONO ABS # 1.04 K/uL (0.11-0.59); NEUT % 50.2 %; NEUT ABS # 4.55 K/uL (1.4-6.5); PLATELET COUNT 165 K/uL (130-400); RED CELL DISTRIBUTION WIDTH CV 14.1 % (11.5-14.5); RED CELL DISTRIBUTION WIDTH SD 47.8 fL (36.4-46.3); WHITE BLOOD COUNT 9.07 K/uL (4.8-10.8)
[2018-01-15 07:05] LABS: CREATININE 1.46 mg/dl (0.60-1.40); POTASSIUM 3.2 mmol/L (3.5-5.1)
[2018-01-15 07:34] LABS: HEMOGLOBIN A1C 6.9 % (4.5-5.6)
[2018-01-15 07:50] VITALS: BP 114/68; PULSE 58; TEMP 36.6; O2SAT 94
[2018-01-15] MEDS: LISINOPRIL 40 MG TAB PO SCH (08:21)
[2018-01-15] MEDS: HYDROCHLOROTHIAZIDE 25 MG TAB PO SCH (08:22)
[2018-01-15] MEDS: COLESTIPOL HCL 5 GM POWDER PACK PO SCH ×2 (08:22→08:28)
[2018-01-15] MEDS: ASPIRIN 81 MG ECTAB PO SCH (08:22)
--- NOTE | 2018-01-15 08:37 | Family Medicine Progress Note ---
Progress Note Date of Service Jan 15, 2018. Subjective Reports no new complaints this morning -- eating breakfast well, going to the bathroom with no difficulty urinating, however states he does tend to get lightheaded. Denies weakness or vertigo. Mild headache. Denies chest pain, SOB, weakness as above, diarrhea or constipation (no BM since 2 days ago), no abdominal pain. No LE pain. ROS See HPI for pertinent positives and negatives. Objective Physical Exam Notes: GENERAL: Awake, alert, in no distress HENT: Normocephalic, atraumatic. EYES: Normal conjunctiva. Sclera non-icteric. PERRL, EOMI RESPIRATORY: Clear to auscultation. CARDIAC: Regular rate, normal rhythm. Extremities warm and well perfused. Pulses equal. No carotid bruit appreciated b/l. ABDOMEN: Soft, non-distended. No tenderness to palpation. No rebound or guarding. No masses. LOWER EXTREMITIES: Calves are equal size bilaterally and non-tender. No edema. No discoloration. NEURO: Normal sensorium. No sensory or motor deficits noted. CN II-XII grossly in tact SKIN: No rash or jaundice noted. Resident Tracking Resident Involvement: Resident Care Provided Care Provided: Adult Hospital Medicine
--- NOTE | 2018-01-15 09:24 | Surgery Consultation ---
Consultation Date of Service Jan 15, 2018. Chief Complaint RICAS History of Present Illness The patient is a 77 year old male with hx of DMII, HTN, and lumbar spinal stenosis, admitted with lightheadedness and R leg weakness that started about 1 day PAVER LAYER, seen in consultation today for RICAS noted on MRA and CTA. Pt denies any prior knowledge of this, states [facility] [place]. Denies hx of CVA or TIA in past, amaurosis, L extremity weakness numbness or tingling, facial droop, difficulty speaking or swallowing. Denies LIN, fever, chills, chest pain, coughing, abd pain, SOB, N/V, rest pain, claudication, other complaints. CTA confirms 99% stenosis of R ICA, with what appears to be a hemorrhagic plaque. Vitals Vital Signs Past 12 Hours Date Time Temp Pulse Resp B/P (MAP) Pulse Ox O2 Delivery O2 Flow Rate FiO2 01/15/18 07:50 36.6 58 19 114/68 (83) 94 Room Air 01/15/18 04:04 Room Air 01/15/18 03:27 36.5 50 18 101/55 (70) 96 Room Air 01/15/18 00:02 Room Air 01/14/18 23:23 36.5 56 18 104/64 (77) 91 Room Air Allergies Coded Allergies: Felodipine (Verified Allergy, Mild, hives, 09/26/14) Flunisolide (Verified Allergy, Unknown, other, 09/26/14) Gabapentin (Verified Adverse Reaction, Mild, GI SYMPTOMS, 01/14/18) Home Medications Scheduled Aspirin (Aspirin Ec), 81 MG PO QAM Atenolol (Tenormin), 25 MG PO QAM Colestipol Hcl (Colestipol Hcl For Oral S), 1 DOSE PO BID Diphenhydramine Hcl (Benadryl), 25 MG PO QAM Hydrochlorothiazide (Hydrochlorothiazide), 25 MG PO QAM Lisinopril (Lisinopril), 40 MG PO QAM Simvastatin (Zocor), 10 MG PO HS Scheduled PRN Ibuprofen Tab (Advil), 200 MG PO UD PRN for Pain or Fever Problem List Medical Problems: (1) Ambulatory dysfunction (2) IBS (irritable bowel syndrome) (3) Osteoarthritis (4) Spinal stenosis (5) TIA (transient ischemic attack) Surgical / Medical History Hx Cardiac Surgery: No Hx Abdominal Surgery: Yes (hernia repair 45 years ago) Hx Cancer Surgery: No Hx Thoracic Surgery: No Hx Orthopedic: No Hx Urinary Tract Surgery: No Past Medical/Surgical History: Diabetes, Hypertension Family History Diabetes mellitus Hypertension Stroke Social History Smoking Status: Never Smoker Hx Tobacco Use In Past Year?: No Hx Alcohol Use - Type & Amnt: No Hx Substance Use -Type & Amnt: No Review of Systems Constitutional: No chills, No fever, No malaise Skin: No change in color Eyes: No visual changes ENMT: No sore throat Respiratory: No cough, No short of breath Cardiovascular: No chest pain, No palpitations, No syncope, No edema, No intermittent claudication Gastrointestinal: No abdominal pain, No nausea, No vomiting Musculoskeletal: + back pain (chronic) Neurologic: + dizziness, No headache Physical Exam Constitutional: General Apperance: heathly-appearing, well-nourished, well-developed, obese Level of Distress: NAD Psychiatric: Mental Status: active & alert, normal mood, normal affect Orientation: oriented except where noted, to time, to place, to person Memory: recent memory normal, remote memory normal Head: normocephalic, atraumatic Eyes: EOM: EOMI ENMT: normal ENT inspection, hearing grossly normal Neck: supple, trachea midline Lungs: Respiratory effort: no dyspnea Auscultation: breath sounds normal, no rales/crackles, no rhonchi Cardiovascular: Apical Impulse: not displaced Heart Auscultation: no murmurs, no rubs, no gallops, bradycardia Peripheral Pulses: Pulses: full and equal, in all extremities except if noted Bruits: none appreciated Carotid Pulse: normal on the left Brachial Pulses: normal on the left, normal on the right Radial Pulse: normal on the left, normal on the right Femoral Pulse: normal on the left, normal on the right Posterior Tibialis Pulse: decreased on the left, decreased on the right Dorsalis Pedis Pulse: normal on the left, normal on the right Abdomen: Bowel Sounds: normal Inspection & Palpation: soft, non-distended, no tenderness, guarding & rebound Musculoskeletal: normal strength (5/5 throughout), normal tone Extremities: Upper Right: no cyanosis, no edema, no varicosities Upper Left: no cyanosis, no edema, no varicosities, no palpable cord Lower Right: no cyanosis, no edema, no varicosities Lower Left: no cyanosis, no edema, no varicosities Neurologic: Cranial Nerves: grossly intact Sensation: grossly intact Assessment and Plan ASSESSMENT and PLAN: 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 Would perform this week if pt agreeable. Also discussed with case management.
[2018-01-15 11:50] VITALS: BP 111/48; PULSE 57; TEMP 37; O2SAT 94
[2018-01-15] MEDS ORDERED: POTASSIUM CHLORIDE 20 MEQ TABCR PO ONE (13:45)
--- NOTE | 2018-01-15 13:56 | Discharge Summary ---
Discharge Summary Date of Service Jan 15, 2018. Discharge Summary Admission Date: Jan 14, 2018 at 16:26 Discharge Disposition: Acute care facility Principal Diagnosis: RCA stenosis Problems/Secondary Diagnoses: HTN RT leg weakness Type 2 DM Hyperlipidemia Immunizations: Have You Had Influenza Vaccine: Unknown History of Tetanus Vaccine?: Unknown History of Pneumococcal: Unknown History of Hepatitis B Vaccine: Unknown Procedures: HEAD WITHOUT CONTRAST (CT) CLINICAL HISTORY: 77 years-old Male with right leg weakness, dizziness, ?cva. Acute weakness and dizziness with strokelike symptoms TECHNIQUE: Multiple axial CT images of the head were obtained without contrast. A dose lowering technique was utilized adhering to the principles of ALARA. CT DOSE: 614.27 mGy.cm COMPARISON: None. FINDINGS: No acute intracranial hemorrhage, midline shift, intracranial mass, hydrocephalus, territorial ischemia or abnormal extra-axial collection. Moderate atrophy with ex vacuo ventriculomegaly. Cerebral vascular calcifications are seen at the level of the skull base. The calvarium is intact. The mastoid air cells, and middle ear cavities are clear. Mild mucosal thickening of the right maxillary sinus. Soft tissues and orbits are unremarkable. IMPRESSION: No acute intracranial abnormality CHEST ONE VIEW PORTABLE HISTORY: 77 years-old Male right leg weakness acute right leg weakness COMPARISON: Chest radiograph 05/10/2017 TECHNIQUE: Portable AP view of the chest FINDINGS: Cardiac silhouette is mildly enlarged, unchanged. Atherosclerosis of the aorta. There is no pneumothorax, pleural effusion, focal airspace consolidation or overt pulmonary edema. Bones of the chest appear grossly intact. Degenerative changes are noted within the shoulders and spine. IMPRESSION: Mild cardiomegaly without acute process. MR ANGIOGRAPHY OF THE [place] NO CONTRAST CLINICAL HISTORY: Stroke COMPARISON STUDY: None. A 3-D [id number] MR angiographic sequence of the [place] was performed. Both the source and projection images were reviewed. There is no evidence of major intracranial branch occlusion. There is no evidence of intracranial stenosis. There are no lesions suspicious for aneurysm. IMPRESSION: Unremarkable MR angiography of the [place]. MRI OF THE BRAIN WITHOUT AND WITH IV CONTRAST CLINICAL HISTORY: Right-sided weakness. Dizziness. Suspected stroke. COMPARISON STUDY: Noncontrast head CT dated 01/13/2018 TECHNIQUE: MRI of the brain was performed from the vertex to the skull base utilizing various T1 and T2 weighted sequences. Following the IV administration of 10 mL of Gadavist contrast, additional enhanced images were obtained. FINDINGS: Sagittal T1, axial diffusion, proton density and T2 weighted axial, coronal FLAIR, and pre and post axial T1-weighted images were acquired. These were supplemented with post gadolinium coronal T1 weighted images. No intra or extra-axial mass lesions are visualized. Axial diffusion-weighted images reveal no evidence of acute or subacute infarction. There is no evidence of ventricular dilatation. Proton density T2-weighted and FLAIR images reveal no significant intraparenchymal signal abnormalities. There are no abnormal flow voids. There is no evidence of pathologic enhancement. There is a left malar sebaceous cyst IMPRESSION: Normal MRI of the brain for age CT NECK ANGIO WITH CONTRAST CLINICAL HISTORY: Possible cortical right internal carotid artery stenosis versus artifact COMPARISON STUDY: MR angiography neck dated 01/14/2018 TECHNIQUE: CT angiography was performed from the aortic arch to the skull base. MIP imaging was performed. The patient was scanned in a dynamic helical fashion during intravenous administration of 93 cc of Optiray 320. A dose lowering technique was utilized adhering to the principles of ALARA. CT DOSE: 519.14 mGy.cm Technique: CT angiogram of the carotid and vertebral arteries was obtained using intravenous contrast and 3-D reconstruction. NASCET criteria was utilized. Findings: There is a critical 90+ percent stenosis of the right internal carotid artery origin. The left carotid revealed no evidence of hemodynamic significant stenosis. There is no evidence of aneurysm. There is no evidence of dissection. There is no evidence of hemodynamically significant vertebral stenosis. There is no evidence of vertebral dissection. IMPRESSION: This examination confirms a critical 90+ percent stenosis of the right internal carotid artery origin. NECK MRA HISTORY: Right-sided weakness. Dizziness. Stroke like symptoms. TECHNIQUE: [id number] and gadolinium-enhanced MRA of the neck was performed both before and after the intravenous administration of contrast. All measurements were calculated based on NASCET criteria. The patient was administered 10 cc of intravenous Gadavist COMPARISON STUDY: None. FINDINGS: The aortic arch and proximal great vessels are widely patent. There is no evidence of hemodynamically significant left carotid stenosis. There is a suspected critical stenosis of the right internal carotid artery origin. As there is an equivocal artifact at this level, correlation with a carotid Doppler study or CT angiography is recommended in follow-up. There is no evidence of vertebral artery stenosis or dissection. IMPRESSION: 1. 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 As there is an equivocal artifact at this level, correlation with a carotid Doppler study or CT angiography of the neck is recommended in follow-up. Medication Reconciliation Continued Medications: Aspirin (Aspirin Ec) 81 Mg Tab 81 MG PO QAM Atenolol (Tenormin) 25 Mg Tab 25 MG PO QAM, TAB Colestipol Hcl (Colestipol Hcl For Oral S) 5 Gm Gra 1 DOSE PO BID Diphenhydramine Hcl (Benadryl) 25 Mg Cap 25 MG PO QAM, CAP Hydrochlorothiazide (Hydrochlorothiazide) 25 Mg Tab 25 MG PO QAM Ibuprofen Tab (Advil) 200 Mg Tab 200 MG PO UD PRN for Pain or Fever, TAB TAKE PER PACKAGE DIRECTIONS Lisinopril (Lisinopril) 40 Mg Tab 40 MG PO QAM Simvastatin (Zocor) 20 Mg Tab 10 MG PO HS, TAB Discharge Exam Review of Systems: Constitutional: No fever, No chills Eyes: No worsening of vision Respiratory: No cough, No sputum, No shortness of breath, No dyspnea on exertion, No dyspnea at rest Cardiovascular: No chest pain Abdomen: No pain, No nausea, No vomiting Physical Exam: General Appearance: no apparent distress Eyes: PERRL, EOMI ENT: hearing grossly normal Neck: no adenopathy, no JVD Respiratory/Chest: lungs clear, normal breath sounds, no respiratory distress, no accessory muscle use Cardiovascular: regular rate, rhythm, no murmur Abdomen / GI: normal bowel sounds, non tender, soft Extremities: no calf tenderness, no pedal edema Neurologic/Psychiatric: alert, normal mood/affect, oriented x 3 Hospital Course HPI (per admitting doc) The is a 77 year old male with a history of hypertension, hyperlipidemia and type 2 diabetes mellitus, who presents with 3 days of right leg weakness. The patient states he was in his usual state of health when he felt his leg being quite weak and as a result stumbling more towards the right side. He denies any sensory changes or pain to the right leg. He denies any injuries or trauma. He denies any back pain or back injuries. He has no pain or radiating symptoms. He has not other peripheral weakness or sensory changes. He denies any double vision or blurred vision. His hearing is unchanging and he does not have vertigo or tinnitus. He denies problems with speech delivery or comprehension. He is swallowing normally. He has no facial numbness of weakness. Given the persistence of his symptoms for the past 3 days, he made the decision to come to the ED or further evaluation. In the ED, a CT brain was negative. The decision was made to admit the patient for CVA rule-out. ED Course: The following morning, the patient had some mild right upper and lower extremity weakness that later progressed to left arm weakness. Neurology was consulted and attributed his weakness to dizziness/vertigo. CT angio was suggestive of Critical JOSELITO stenosis. Vascular surgery was consulted and the recommendation was to transfer to [facility] for urgent surgical intervention. The patient was agreeable. Appropriate transfer arrangements were made and the accepting physician is Dr. Ena Delacruz All anti-hypertensives were held to allow for permissive Hypertension. Mild SHWETA noted on day of transfer (Cr. of 1.46)- Bolus NSS 500 ml x 2 given. All other chronic conditions and acute metabolic derangements were managed. Total Time Spent: Greater than 30 minutes This includes examination of the patient, discharge planning, medication reconciliation, and communication with other providers. Discharge Instructions Please refer to the electronic Patient Visit Report (Discharge Instructions) for additional information. Reviewed: Pt Seen/Exam by Me History no weakness in any part of body no headache, vision problem Constitutional: denies: fever Respiratory: negative: short of breath Cardiovascular: denies chest pain General Appearance: no apparent distress Respiratory: lungs clear, no respiratory distress Cardiovascular: regular rate, rhythm Neurologic/Psychiatric: alert, oriented x 3, other (no focal deficit) Skin Characteristics: warm/dry Assessment/Plan Resident Physician Supervision Note: I independently interviewed and examined the patient and verified the bermudez history and physical, reviewed labs and image studies, discussed the case with the resident Dr. Moulton and agree with the findings and care plan. Time spent in discharge 40 min
[2018-01-15] MEDS ORDERED: SODIUM CHLORIDE 0.9% 500ML 500 ML IV SCH ×2 (14:15→15:45)
--- NOTE | 2018-01-15 15:32 | Discharge Instructions ---
Discharge Instructions Date of Service Jan 15, 2018. Admission Reason for Admission: Ambulatory Dysfunction, Rt Leg Weakness Discharge Discharge Diagnosis / Problem: RCA stenosis, Rt. Leg weakness Discharge Goals Goal(s): Learn about illness, Diagnostic testing, Screening, Prevent Disease Progression Activity Recommendations Lifting Limitations: gradually increase as tolerated Exercise/Sports Limitations: gradually increase as tolerated May Resume Sexual Activity: when tolerated Shower/Bathe: no limitations Driving or Machine Use: resume 3 days after discharge . Instructions / Follow-Up Instructions / Follow-Up Patient being transferred due to critical JOSELITO stenosis for R CEA Please follow Cr (1.46 noted today- NSS 500 ml x 2 given) Please see discharge summary for details Current Hospital Diet Patient's current hospital diet: AHA Diet (Heart Healthy), Diabetes Type 2 Diet Discharge Diet Recommended Diet: Low Sodium Diet (2gm Na) Pending Studies Studies pending at discharge: no Laboratory Results Hemoglobin A1c Test 01/13/18 20:16 Range/Units Estimated Average Glucose 151 mg/dl Hemoglobin A1c 6.9 H 4.5-5.6 % Lipid Panel Test 01/14/18 05:29 Range/Units Triglycerides Level 158 H 0-150 mg/dl Cholesterol Level 135 0-200 mg/dl HDL Cholesterol 38 mg/dl Cholesterol/HDL Ratio 3.6 LDL Cholesterol, Calculated 65 mg/dl Medical Emergencies . Who to Call and When: Medical Emergencies: If at any time you feel your situation is an emergency, please call 911 immediately. . Non-Emergent Contact Non-Emergency issues call your: Primary Care Provider . . "Provider Documentation" section prepared by Lisa Bhatt. .
[2018-01-15] MEDS: ENOXAPARIN 40 MG/0.4 ML SYR SC SCH (15:48)
[2018-01-15 16:31] VITALS: BP 96/58; PULSE 58; TEMP 36.8; O2SAT 96
== END 2018-01-15 19:59 | disposition short-term general hospital (02) | DRG 68 ==
LOC: C.EDB 19:31 → C.2T 23:17 → EDBEDREQ 23:21 → ENRESERV 23:46 → OBSVTOIN 01-14 16:26
PROVIDERS: ADMIT Student in an Organized Health Care Education/Training Program; ATTEND Family Medicine
DX: I65.21 Occlusion and stenosis of right carotid artery (principal); G81.91 Hemiplegia, unspecified affecting right dominant side; R42 Dizziness and giddiness; I10 Essential (primary) hypertension; E78.5 Hyperlipidemia, unspecified; E11.9 Type 2 diabetes mellitus without complications; Z79.82 Long term (current) use of aspirin; Z79.899 Other long term (current) drug therapy; Z88.8 Allergy status to other drugs, medicaments and biological substances

== ENCOUNTER 2022-01-21 09:24 | Inpatient (IN) ==
[2022-01-21] MEDS ORDERED: SODIUM CHLORIDE 0.9% 500 ML IV STA (09:43)
--- NOTE | 2022-01-21 09:45 | Emergency Department Note ---
History of Present Illness General Chief complaint: Cardiac Assessment Stated complaint: LEFT ARM PAIN, HIGH HEART RATE, CHEST PAIN Time Seen by Provider: 01/21/22 09:31 Source: patient and family (Daughter who is at the bedside) Mode of arrival: ambulatory Limitations: no limitations History of Present Illness Maximum Pain Intensity: 7 This patient is a 81-year-old male who comes in after having a high heart rate since yesterday. He noticed it when he was checking his blood pressure. He feels lightheaded and off-balance when he gets up. He has some soreness in his left shoulder and chest but did none's been persistent. He fell a month ago and had a head bleed [facility] and [facility] no [facility]. He denies any headache. He did start on some new medications for both myasthenia and they change his blood pressure medication. He had no fever or chills or exposure to Covid he said the COVID vaccine no cough. No shortness of breath. No blood or melena stool no numbness or weakness of his legs to mild lower abdominal discomfort at times. He is on no blood thinners. He feels he been keeping up with his fluids. No recent illness. Home Medications Medication Instructions Recorded Confirmed Type amlodipine 5 mg tablet 5 mg PO BID 12/23/21 01/21/22 History colestipol 5 gram oral granules 5 g PO QAM 12/23/21 01/21/22 History cyanocobalamin (vitamin B-12) 1,000 mcg PO QAM 12/23/21 01/21/22 History 1,000 mcg tablet diclofenac sodium 1 % topical gel 1 ea TOPICAL UD PRN 12/23/21 01/21/22 History losartan 50 mg tablet 50 mg PO QAM 12/23/21 01/21/22 History metformin 500 mg tablet,extended 500 mg PO QAM 12/23/21 01/21/22 History release 24hr pravastatin 40 mg tablet 40 mg PO QAM 12/23/21 01/21/22 History pyridostigmine bromide 60 mg 30 mg PO TID 12/23/21 01/21/22 History tablet (Mestinon) acetaminophen 325 mg capsule 325 mg PO QID PRN 01/21/22 01/21/22 History (Tylenol) omeprazole 20 mg capsule,delayed 20 mg PO DAILY 01/21/22 01/21/22 History release Allergies Allergy/AdvReac Type Severity Reaction Status Date / Time felodipine Allergy Mild hives Verified 01/21/22 10:29 flunisolide Allergy Unknown other Verified 01/21/22 10:29 gabapentin AdvReac Mild GI SYMPTOMS Verified 01/21/22 10:29 Past Med/Surg History Medical History Ambulatory dysfunction Benign tubular adenoma of large intestine DM II (diabetes mellitus, type II), controlled HLD (hyperlipidemia) HTN (hypertension) IBS (irritable bowel syndrome) MDD (major depressive disorder) Myasthenia gravis Osteoarthritis TIA (transient ischemic attack) Surgical History History of vasectomy S/P cholecystectomy Family History Father Stroke Social History Smoking Status: Never smoker Hx Alcohol Use: No Hx Substance Use: No Preferred Language: Hungarian Scheduler Required: No Beliefs That Will Affect Care: None marital status: Current Living Situation: Spouse current occupational status: retired Other Information That Helps Us Care for You: No Feels Safe at Home: Yes Safety Concerns: Feels Safe At This Time caffeine: Yes Assistive Devices: Cane Immunizations: Past medical historyrecent head bleed. Denies history of cardiac disease or A. fib. He has of myasthenia. He is on no blood thinners Social History he is and lives locally with his . Does not smoke or drink. Review of Systems A total of 10 systems reviewed and were otherwise negative Physical Exam Vital Signs Vital Signs - 24 hr 01/21/22 09:28 01/21/22 09:49 01/21/22 09:51 Temperature 36.6 C Temperature Source Temporal Artery Scan Pulse Rate 91 H 152 H 146 H Pulse Rate [Apical] Pulse Rate from SpO2 Sensor Respiratory Rate 22 Respiratory Effort / Characteristics Respiratory Depth Respiratory Pattern Blood Pressure 84/57 L 106/65 Blood Pressure [Right Arm] Blood Pressure Mean 66 78 Blood Pressure Mean [Right Arm] Pulse Oximetry 98 Oxygen Delivery Method Room Air Sepsis Recent Fever Within 48 Hours No Sepsis New/Unexplained Change in Mental Status No Sepsis Action Taken by Nursing No Action Required 01/21/22 09:55 01/21/22 09:59 01/21/22 10:00 Temperature Temperature Source Pulse Rate 139 H 133 H 157 H Pulse Rate [Apical] 130 H Pulse Rate from SpO2 Sensor 132 H Respiratory Rate 20 20 18 Respiratory Effort / Characteristics Non-Labored Spontaneous Respiratory Depth Normal Respiratory Pattern Regular Blood Pressure 106/65 82/63 L Blood Pressure [Right Arm] 106/65 Blood Pressure Mean 78 69 Blood Pressure Mean [Right Arm] 78 Pulse Oximetry 99 99 97 Oxygen Delivery Method Room Air Room Air Sepsis Recent Fever Within 48 Hours Sepsis New/Unexplained Change in Mental Status Sepsis Action Taken by Nursing 01/21/22 10:22 01/21/22 10:30 Temperature Temperature Source Pulse Rate 127 H 132 H Pulse Rate [Apical] Pulse Rate from SpO2 Sensor 109 H 125 H Respiratory Rate 21 20 Respiratory Effort / Characteristics Respiratory Depth Respiratory Pattern Blood Pressure 111/67 105/60 Blood Pressure [Right Arm] Blood Pressure Mean 81 75 Blood Pressure Mean [Right Arm] Pulse Oximetry 97 98 Oxygen Delivery Method Sepsis Recent Fever Within 48 Hours Sepsis New/Unexplained Change in Mental Status Sepsis Action Taken by Nursing General: Well developed well nourished male who appears in no acute distress, breathing comfortably on room air. Normal speech and orient x3 answers all questions appropriately HEENT: Normal cephalic atraumatic. Pupils are equal round and reactive to light. Extraocular movements are intact. Oropharynx is pink with moist mucous membranes. No swelling of the mouth lips or tongue. Neck: Supple with a midline trachea. No meningeal signs or stiffness, no JVD or bruits. No Stridor. Chest: Clear to auscultation bilaterally. No wheezes or rhonchi. No increased work of breathing. Heart: Irregular rate and rhythm and he is moderately tachycardic without murmu rs or gallops. Abdomen: Soft nontender, nondistended without rebound guarding or rigidity. Extremities: No cyanosis clubbing or edema. No calf tenderness or assymetry Spine/Back. Non tender to palpation. No CVA tenderness Skin: Good turgor without rashes. Neurologic exam: Cranial nerves two through 12 are intact. Motor and sensation are intact and symmetrical throughout. No tremor. Course Administered Medications Diltiazem HCl 125 mg/ Dextrose 125 mls @ 5 mls/hr IV .Q24H [facility]; Protocol Stop: 02/20/22 14:14 Last Admin: 01/21/22 14:55 Dose: 5 mg/hr, 5 mls/hr Documented by: [id number] Cosigned by: [id number] Insulin Aspart (Insulin Aspart Per Unit) 0 units SC ACHS NAREN Stop: 02/20/22 12:59 Last Admin: 01/21/22 13:10 Dose: Not Given Documented by: [id number] Pyridostigmine [place] (Pyridostigmine [place] 60 Mg Tab) 30 mg PO TID NAREN Stop: 02/20/22 13:59 Last Admin: 01/21/22 13:53 Dose: 30 mg Documented by: [id number] Discontinued Medications Diltiazem HCl (Diltiazem Hcl 5 Mg/Ml 5 Ml Vial) 5 mg IV NOW STA Stop: 01/21/22 14:02 Last Admin: 01/21/22 14:55 Dose: 5 mg Documented by: [id number] Cosigned by: [id number] Sodium Chloride (Nss) 500 mls @ 999 mls/hr IV .Q31M STA Stop: 01/21/22 10:13 Last Infusion: 01/21/22 10:47 Dose: 0 mls/hr Documented by: [id number] Admin: 01/21/22 10:09 Dose: 999 mls/hr Documented by: [id number] Digoxin 500 mcg/ Syringe 10 mls @ 2 mls/min IV NOW ONE Stop: 01/21/22 11:19 Last Admin: 01/21/22 11:20 Dose: 2 mls/min Documented by: [id number] Medical Decision Making Differential Diagnosis Acute coronary syndrome, arrhythmia, electrolyte or metabolic abnormality, dehydration, medication side effect, sepsis, anemia, intracranial hemorrh age/process Medical Records Attestation: I reviewed the patient's medical records. Home Medications Current Medication List: was personally reviewed by me Laboratory Data Attestation: I reviewed the patient's lab results. Result diagrams: 01/21/22 09:51 01/21/22 09:51 Lab Results 01/21/22 01/21/22 01/21/22 Range/Units 09:51 09:51 09:51 WBC 9.53 (4.8-10.8) K/uL RBC 4.35 L (4.7-6.1) M/uL Hgb 13.4 L (14.0-18.0) g/dL Hct 40.8 L (42-52) % MCV 93.8 (80-100) fL MCH 30.8 (25-34) pg MCHC 32.8 (32-36) g/dL RDW Std Deviation 52.7 H (36.4-46.3) fL RDW Coeff of [place] 15.4 H (11.5-14.5) % Plt Count 178 (130-400) K/uL MPV 11.3 H (7.4-10.4) fL Immature Gran % (Auto) 0.2 % Neut % (Auto) 72.3 % Lymph % (Auto) 14.2 % [place] % (Auto) 12.7 % Eos % (Auto) 0.4 % Baso % (Auto) 0.2 % Neut # (Auto) 6.89 H (1.4-6.5) K/uL Lymph # (Auto) 1.35 (1.2-3.4) K/uL [place] # (Auto) 1.21 H (0.11-0.59) K/uL Eos # (Auto) 0.04 (0-0.5) K/uL Baso # (Auto) 0.02 (0-0.2) K/uL Immature Gran # (Auto) 0.02 (0.00-0.02) K/uL PT 11.0 (9.0-12.0) Seconds INR 1.0 (0.9-1.1) APTT 27.1 (21.0-31.0) Seconds PTT Ratio 1.0 Sodium 139 (136-145) mmol/L Potassium 4.2 (3.5-5.1) mmol/L Chloride 107 (98-107) mmol/L Carbon Dioxide 25 (21-32) mmol/L Anion Gap 7 (3-11) BUN 19 (6-23) mg/dl Creatinine 1.26 (0.6-1.4) mg/dl Est Cr Clr Drug Dosing 55.0 ml/min Est GFR ( Amer) 62.5 ml/min Est GFR (Non-Af Amer) 53.9 ml/min BUN/Creatinine Ratio 15.1 (10-20) Glucose 130 H (70-99(Fasting)) mg/dl Calcium 9.0 (8.5-10.1) mg/dl Magnesium 2.0 (1.7-2.4) mg/dl Total Bilirubin 1.6 H (0.2-1.0) mg/dl AST 10 L (13-39) U/L ALT 5 L (7-52) U/L Alkaline Phosphatase 56 (34-104) U/L Troponin I < 0.03 (0-0.04) ng/ml Total Protein 7.0 (6.0-8.3) gm/dl Albumin 4.0 (3.4-5.0) gm/dl Globulin 3.0 (2.5-4.0) gm/dl Albumin/Globulin Ratio 1.3 (0.9-2) Lipase 16 (11-82) U/L TSH (0.300-4.500) uIu/ml Free T4 (0.61-1.60) ng/dl SARS-CoV-2, RNA, NAAT (NEGATIVE) 01/21/22 01/21/22 Range/Units 09:51 10:00 WBC (4.8-10.8) K/uL RBC (4.7-6.1) M/uL Hgb (14.0-18.0) g/dL Hct (42-52) % MCV (80-100) fL MCH (25-34) pg MCHC (32-36) g/dL RDW Std Deviation (36.4-46.3) fL RDW Coeff of [place] (11.5-14.5) % Plt Count (130-400) K/uL MPV (7.4-10.4) fL Immature Gran % (Auto) % Neut % (Auto) % Lymph % (Auto) % [place] % (Auto) % Eos % (Auto) % Baso % (Auto) % Neut # (Auto) (1.4-6.5) K/uL Lymph # (Auto) (1.2-3.4) K/uL [place] # (Auto) (0.11-0.59) K/uL Eos # (Auto) (0-0.5) K/uL Baso # (Auto) (0-0.2) K/uL Immature Gran # (Auto) (0.00-0.02) K/uL PT (9.0-12.0) Seconds INR (0.9-1.1) APTT (21.0-31.0) Seconds PTT Ratio Sodium (136-145) mmol/L Potassium (3.5-5.1) mmol/L Chloride (98-107) mmol/L Carbon Dioxide (21-32) mmol/L Anion Gap (3-11) BUN (6-23) mg/dl Creatinine (0.6-1.4) mg/dl Est Cr Clr Drug Dosing ml/min Est GFR ( Amer) ml/min Est GFR (Non-Af Amer) ml/min BUN/Creatinine Ratio (10-20) Glucose (70-99(Fasting)) mg/dl Calcium (8.5-10.1) mg/dl Magnesium (1.7-2.4) mg/dl Total Bilirubin (0.2-1.0) mg/dl AST (13-39) U/L ALT (7-52) U/L Alkaline Phosphatase (34-104) U/L Troponin I (0-0.04) ng/ml Total Protein (6.0-8.3) gm/dl Albumin (3.4-5.0) gm/dl Globulin (2.5-4.0) gm/dl Albumin/Globulin Ratio (0.9-2) Lipase (11-82) U/L TSH 9.293 H (0.300-4.500) uIu/ml Free T4 0.87 (0.61-1.60) ng/dl SARS-CoV-2, RNA, NAAT NEGATIVE (NEGATIVE) Imaging Data Attestation: I personally reviewed and interpreted this imaging study as follows: My Impression: Chest X-rayNo acute infiltrate, failure, pneumothorax seen Radiologist's Impression: Chest X-Ray 01/21/22 09:43 XR chest 1V portable HISTORY: 81 years-old Male Chest Pain . Acute atypical chest pain COMPARISON: Chest radiograph 12/23/2021 TECHNIQUE: Portable AP view of the chest FINDINGS: The cardiac silhouette is mildly enlarged. There is no pneumothorax, pleural effusion, airspace consolidation or overt pulmonary edema. Nipple shadow projects over the left lung base. Degenerative changes of the shoulders and spine. IMPRESSION: Cardiomegaly without acute process. ACT 112: Negative or not required by law. The above report was generated using voice recognition software. It may contain grammatical, syntax or spelling errors. Electronically signed by: Narinder Royal M.D. 01/21/2022 9:[address] 01/21/22 10:19 CT head/brain wo con CLINICAL HISTORY: 81 years-old Male with recent head bleed. Acute tachycardia with elevated blood pressure TECHNIQUE: Multiple axial CT images of the head were obtained without contrast. A dose lowering technique was utilized adhering to the principles of ALARA. CT DOSE: 537.48 mGy.cm COMPARISON: Head CT 12/23/2021 FINDINGS: Near complete resolution of the previously described subdural hematoma adjacent to the superior and anterior aspect of the right frontal lobe. Trace residual hemorrhage is noted on image 16 series 2 measuring up to 2 mm transversely. Age- related involutional changes with mild ex vacuo ventriculomegaly. Mild white matter hypodensities suggest chronic microvascular ischemic disease. There is no midline shift, intracranial mass, hydrocephalus, territorial ischemia or abnormal extra-axial collection. Calcifications of the falx cerebri. The calvarium is intact. Mild polypoid mucosal thickening of the right maxillary sinus partially imaged. The mastoid air cells are clear. Prior bilateral lens repair. IMPRESSION: 1. No acute intracranial abnormality. 2. Near complete resolution of the previously noted subdural hematoma adjacent to the anterosuperior right frontal lobe. ACT 112: Negative or not required by law. The above report was generated using voice recognition software. It may contain grammatical, syntax or spelling errors. Electronically signed by: Narinder Royal M.D. 01/21/2022 10:45 AM ECG Data Attestation: I personally reviewed and interpreted this ECG as follows: Indication: + chest pain and + tachycardia Rate (beats per minute): 137 Rhythm: + atrial fibrillation ECG Intervals/blocks: + Incomplete right bundle branch block and + Normal QRS ECG [place]: + Normal ECG ST segments: + Normal ST segments ECG Findings: + PVCs; no PACs Comparison ECG Date: no prior available MDM Narrative This patient is a 81-year-old male who comes in after feeling dizzy with an elevated heart rate since yesterday. It sounds like he notices based on his blood pressure symptoms are mostly when he stands at rest he looks well. He was noted to be be in A. fib. With his blood pressure being low in triage, I did order a 500 cc IV normal saline bolus his lungs are clear. Extensive work-up done and he was placed on a monitor tech. Multiple blood testing and chest x-ray were obtained. He was Covid tested. Tray was clear and does not suggest congestive heart failure pneumonia or pneumothorax. He has nothing to suggest sepsis. he has no fever or white count or any signs or symptoms of infection. He was not significantly anemic. His blood pressure did go up and down and it was in the 80s initially but then went up into the 100s and 110s. Given the fact that he is stable and feels well at present I opted to do a CAT scan of his head before we gave him any medications because I did not want him to have issues with his blood pressure or heart rate but he was in CAT scan. Given the fact that he had a recent head bleed I felt that he needed a CAT scan of his head as they will likely consider anticoagulation. He has almost complete resolution of this blood but at this point I would not anticoagulate him. I did discuss the case with Dr. Pedro. He recommends loading him with digoxin 0.5 mg IV which I did it was ordered here. We chose this because his pressure was on the low side although did seem to be coming up with IV fluids. He will need to be admitted for further treatment and evaluation. His Covid testing was negative. I have consulted the [facility] hospitalist for these measures Continuous cardiac monitoring: Order was placed in the EMR for continuous cardiac monitoring and upon my interpretation the patient was noted to be in rapid A. fib in the rate of 130s Impression & Plan Weakness, Frequent PVCs, History of subarachnoid hemorrhage, Atrial fibrillation, new onset, Lab test negative for COVID-19 virus, Atrial fibrillation with rapid ventricular response Discharge Plan Visit Data Chief Complaint: Cardiac Assessment Stated Complaint: LEFT ARM PAIN, HIGH HEART RATE, CHEST PAIN ED Provider: Shreyas Ugalde Discharge Problem: Weakness, Frequent PVCs, History of subarachnoid hemorrhage, Atrial fibrillation, new onset, Lab test negative for COVID-19 virus, Atrial fibrillation with rapid ventricular response Patient Disposition: Admitted As Inpatient Discharge Instructions Interventions: ED Discharge Assessment Last Done: 01/21/22 12:12
--- NOTE | 2022-01-21 10:00 | XRay Report ---
XR chest 1V portable HISTORY: 81 years-old Male Chest Pain . Acute atypical chest pain COMPARISON: Chest radiograph 12/23/2021 TECHNIQUE: Portable AP view of the chest FINDINGS: The cardiac silhouette is mildly enlarged. There is no pneumothorax, pleural effusion, airspace conso lidation or overt pulmonary edema. Nipple shadow projects over the left lung base. Degenerative key es of the shoulders and spine. IMPRESSION: Cardiomegaly without acute process. ACT 112: Negative or not required by law. The above report was generated using voice recognition software. It may contain grammatical, syntax o r spelling errors. Electronically signed by: Narinder Royal M.D. 01/21/2022 9:59 AM
[2022-01-21 10:01] LABS: Basophils # (auto) 0.02 K/uL (0-0.2); Basophils % (auto) 0.2 %; Eosinophils # (auto) 0.04 K/uL (0-0.5); Eosinophils % (auto) 0.4 %; Hematocrit (blood only) 40.8 % (42-52); Hemoglobin 13.4 g/dL (14.0-18.0); Immature Granulocytes # (auto) 0.02 K/uL (0.00-0.02); Immature Granulocytes % (auto) 0.2 %; Lymphocytes # (auto) 1.35 K/uL (1.2-3.4); Lymphocytes % (auto) 14.2 %; Mean Corpuscular Hemoglobin 30.8 pg (25-34); Mean Corpuscular Hgb Conc 32.8 g/dL (32-36); Mean Corpuscular Volume 93.8 fL (80-100); Mean Platelet Volume 11.3 fL (7.4-10.4); Monocytes # (auto) 1.21 K/uL (0.11-0.59); Monocytes % (auto) 12.7 %; Neutrophils # (auto) 6.89 K/uL (1.4-6.5); Neutrophils % (auto) 72.3 %; Platelet Count 178 K/uL (130-400); RDW Coefficient of Variation 15.4 % (11.5-14.5); RDW Standard Deviation 52.7 fL (36.4-46.3); Red Blood Count 4.35 M/uL (4.7-6.1); White Blood Count 9.53 K/uL (4.8-10.8)
[2022-01-21 10:15] LABS: Partial Thromboplastin Time 27.1 Seconds (21.0-31.0)
[2022-01-21 10:28] LABS: Troponin I < 0.03 ng/ml (0-0.04)
[2022-01-21 10:29] LABS: Alanine Aminotransferase 5 U/L (7-52); Albumin Globulin Ratio 1.3 (0.9-2); Alkaline Phosphatase 56 U/L (34-104); Anion Gap 7 (3-11); Aspartate Aminotransferase 10 U/L (13-39); BUN Creatinine Ratio 15.1 (10-20); Bilirubin,Total 1.6 mg/dl (0.2-1.0); Blood Urea Nitrogen 19 mg/dl (6-23); Carbon Dioxide 25 mmol/L (21-32); Chloride 107 mmol/L (98-107); Est GFR (African American) 62.5 ml/min; Est GFR (Non-African American) 53.9 ml/min; Glucose 130 mg/dl (70-99(Fasting)); Lipase 16 U/L (11-82); Potassium 4.2 mmol/L (3.5-5.1); Sodium 139 mmol/L (136-145)
--- NOTE | 2022-01-21 10:47 | CT Scan Report ---
CT head/brain wo con CLINICAL HISTORY: 81 years-old Male with recent head bleed. Acute tachycardia with elevated blood pr essure TECHNIQUE: Multiple axial CT images of the head were obtained without contrast. A dose lowering tech nique was utilized adhering to the principles of ALARA. CT DOSE: 537.48 mGy.cm COMPARISON: Head CT 12/23/2021 FINDINGS: Near complete resolution of the previously described subdural hematoma adjacent to the superior and a nterior aspect of the right frontal lobe. Trace residual hemorrhage is noted on image 16 series 2 alonzo suring up to 2 mm transversely. Age-related involutional changes with mild ex vacuo ventriculomegaly. Mild white matter hypodensities suggest chronic microvascular ischemic disease. There is no midline shift, intracranial mass, hydrocephalus, territorial ischemia or abnormal extra-axial collection. [place] cifications of the falx cerebri. The calvarium is intact. Mild polypoid mucosal thickening of the right maxillary sinus partially gianna ged. The mastoid air cells are clear. Prior bilateral lens repair. IMPRESSION: 1. No acute intracranial abnormality. 2. Near complete resolution of the previously noted subdural hematoma adjacent to the anterosuperior right frontal lobe. ACT 112: Negative or not required by law. The above report was generated using voice recognition software. It may contain grammatical, syntax o r spelling errors. Electronically signed by: Narinder Royal M.D. 01/21/2022 10:45 AM
[2022-01-21] MEDS ORDERED: DIGOXIN 500 MCG in SYRINGE 8 ML IV ONE (11:15)
--- NOTE | 2022-01-21 11:17 | History & Physical Report ---
Date of Service January 21, 2022 Assessment & Plan (1) Weakness: (2) Atrial fibrillation with rapid ventricular response: Plan: - Admit to tele - Loading with digoxin in the ER for rate control, new onset afib, continue per cardiology recs, consulted cardiology - appreciate - EKG reviewed - Troponin is negative in the ER - Electrolytes are within normal ranges, mag of 2.0, potassium 4.2. - TSH elevated at 9.293, T4 is 0.87 - likely new hypothyroidism, not on any medications - ask PCP to follow after discharge - Recent 2 D echo: EF of 65-69%, no left segmental wall motion abnormalities, no valvular disease from 12/24/21 (3) History of subarachnoid hemorrhage: Plan: - Pt is not a candidate for anticoagulation due to recent subarachnoid hematoma - CT head reviewed by myself and shows near completely resolved hematoma today. (4) HTN (hypertension): Plan: - Holding antihypertensives with hypotension on admission, resume once BP improves. S/p NSS 500 ml x 1 (5) HLD (hyperlipidemia): Plan: - Cont statin therapy, check lipid panel with am labs (6) DM II (diabetes mellitus, type II), controlled: Plan: - ISS with accuchecks achs - Holding metformin - Check A1C , last one in our system indicated 6.9 in 2018. No other for review in outpatient epic results. (7) MDD (major depressive disorder): Plan: - Hx of such, stable DVT ppx: - teds, scds, no chemical anticoagulation due to recent subarachnoid hemorrhage CODE: Full code Dispo: From home, likely to remain in the hospital x 1-2 days History of Present Illness Chief Complaint: Dizziness Primary Care Provider: Juan August MD This is a 81-year-old male with PMHx of HTN, HLD, DM type II, MDD, and recent subarachnoid hematoma he sustained after a fall. He was hospitalized at [facility] from 12/23-12/25 [address] CTs of the head were conducted without significant progression of the bleed. His baby aspirin was stopped at that point and was educated to not restart any anticoagulation until told to do so by neurosurgery at afollow-up appointment which originally had been scheduled on 01/19 however was canceled by the patient due to scheduling conflicts. He reports to the ER today with new onset of dizziness and not quite feeling himself last evening, also with some complaints of shoulder soreness which continued this morning when he got up. He denies any chest pain or shortness of breath, lightheadedness, passing out or recent falls. He does use a walker at home due to his Myasthenia gravis. He lives at home with his . He is able to participate in all ADLs without difficulty. He did not take any of his morning medications today. His daughter is here with him in the ER and supports the history. Pt also mentions that he recently had a CT of the abdomen which showed a lesion on his liver, and he complains of feeling pressure on the right side of his abdomen when he is laying on that side. He has some intermittent loose bowels, but no constipation or blood. Denies abdominal pain, n/v, fever, bloating or weight loss or gain, tolerating diet without difficulty. [facility] have [facility] appointment to go over the results early next week. Here in the ER he is found to be in new onset A. fib with rate in the 130s. His blood pressure has been soft since being in the ER, ranging between 80s/60s and low 100s/80s. Repeat CT of the head today shows nearly completely resolved subarachnoid hematoma. Cardiology has been consulted and discussed initiation of digoxin. We will not initiate anticoagulation in the setting of recent subarachnoid hematoma. Allergies Allergy/AdvReac Type Severity Reaction Status Date / Time felodipine Allergy Mild hives Verified 01/21/22 10:29 flunisolide Allergy Unknown other Verified 01/21/22 10:29 gabapentin AdvReac Mild GI SYMPTOMS Verified 01/21/22 10:29 Home Medications Medication Instructions Recorded Confirmed Type amlodipine 5 mg tablet 5 mg PO BID 12/23/21 01/21/22 History colestipol 5 gram oral granules 5 g PO QAM 12/23/21 01/21/22 History cyanocobalamin (vitamin B-12) 1,000 mcg PO QAM 12/23/21 01/21/22 History 1,000 mcg tablet diclofenac sodium 1 % topical gel 1 ea TOPICAL UD PRN 12/23/21 01/21/22 History losartan 50 mg tablet 50 mg PO QAM 12/23/21 01/21/22 History metformin 500 mg tablet,extended 500 mg PO QAM 12/23/21 01/21/22 History release 24hr pravastatin 40 mg tablet 40 mg PO QAM 12/23/21 01/21/22 History pyridostigmine bromide 60 mg 30 mg PO TID 12/23/21 01/21/22 History tablet (Mestinon) acetaminophen 325 mg capsule 325 mg PO QID PRN 01/21/22 01/21/22 History (Tylenol) omeprazole 20 mg capsule,delayed 20 mg PO DAILY 01/21/22 01/21/22 History release Past Med/Surg History Medical History Ambulatory dysfunction Benign tubular adenoma of large intestine DM II (diabetes mellitus, type II), controlled HLD (hyperlipidemia) HTN (hypertension) IBS (irritable bowel syndrome) MDD (major depressive disorder) Myasthenia gravis Osteoarthritis TIA (transient ischemic attack) Surgical History History of vasectomy S/P cholecystectomy Family History Father Stroke Social History Smoking Status: Never smoker Hx Alcohol Use: No Hx Substance Use: No Preferred Language: [place] [employer] Cashier Required: No Beliefs That Will Affect Care: None marital status: Current Living Situation: Spouse current occupational status: retired Other Information That Helps Us Care for You: No Feels Safe at Home: Yes Safety Concerns: Feels Safe At This Time caffeine: Yes Assistive Devices: Cane Review of Systems Review of Systems: Constitutional: No fever, sweats or chills Eyes: No diplopia, no worsening or blurred vision ENT: normal hearing, no trouble swallowing Respiratory: No cough, sputum, dyspnea at rest or on exertion Cardiovascular: As per HPI, currently no chest pain, tightness or palpitations Abdomen: No pain, nausea, vomiting, + intermittent diarrhea, no constipation, + liver issue as mentioned above Musculoskeletal: No joint pain, calf pain, swelling Neurologic: No weakness, numbness/tingling, or balance problems Psychiatric: No anxiety or depression Skin: No rash or itch Physical Exam Physical Exam: General: awake, alert, no apparent distress Head: Normocephalic, atraumatic ENT: PERRL, EOMI, no pharyngeal exudate, mucous membranes moist Chest: Clear to auscultation, on room air, no adventitious breath sounds Cardiac: irregularly irregular, rapid, no murmur, no JVD, normal peripheral pulses, good capillary refill Abdominal: NABS x 4 quadrants, soft, abdominall obese, nondistended, + minimally tender in RUQ with deep palpation, no rebound or guarding Extremities: Normal inspection, no peripheral edema or erythema, calfs nontender to palpation Psych: Normal mood and affect Neuro: AAO x 3, strength intact bilaterally and rated 5/5, no motor deficits, speech is clear, no peripheral sensory deficits Results & Data Results & Data ([facility]) Vital Signs (Past 12 Hours) Vital Signs Temp Pulse Pulse Resp BP BP Pulse Ox 01/21/22 10:30 132 H 20 105/60 98 01/21/22 10:22 127 H 21 111/67 97 01/21/22 10:00 157 H 18 82/63 L 97 01/21/22 09:59 133 H 20 106/65 99 01/21/22 09:55 139 H 130 H 20 106/65 99 01/21/22 09:51 146 H 22 106/65 01/21/22 09:49 152 H 18 01/21/22 09:28 36.6 C 91 H 18 84/57 L 98 Laboratory Results 01/21/22 01/21/22 01/21/22 10:00 09:51 09:51 WBC RBC Hgb Hct MCV MCH MCHC RDW Std Deviation RDW Coeff of [place] Plt Count MPV Immature Gran % (Auto) Neut % (Auto) Lymph % (Auto) Cherry % (Auto) Eos % (Auto) Baso % (Auto) Neut # (Auto) Lymph # (Auto) Cherry # (Auto) Eos # (Auto) Baso # (Auto) Immature Gran # (Auto) PT INR APTT PTT Ratio Sodium 139 Potassium 4.2 Chloride 107 Carbon Dioxide 25 Anion Gap 7 BUN 19 Creatinine 1.26 Est Cr Clr Drug Dosing 55.0 Est GFR ( Amer) 62.5 Est GFR (Non-Af Amer) 53.9 BUN/Creatinine Ratio 15.1 Glucose 130 H Calcium 9.0 Magnesium 2.0 Total Bilirubin 1.6 H AST 10 L ALT 5 L Alkaline Phosphatase 56 Troponin I < 0.03 Total Protein 7.0 Albumin 4.0 Globulin 3.0 Albumin/Globulin Ratio 1.3 Lipase 16 TSH 9.293 H Free T4 0.87 SARS-CoV-2, RNA, NAAT NEGATIVE 01/21/22 01/21/22 09:51 09:51 WBC 9.53 RBC 4.35 L Hgb 13.4 L Hct 40.8 L MCV 93.8 MCH 30.8 MCHC 32.8 RDW Std Deviation 52.7 H RDW Coeff of [place] 15.4 H Plt Count 178 MPV 11.3 H Immature Gran % (Auto) 0.2 Neut % (Auto) 72.3 Lymph % (Auto) 14.2 Cherry % (Auto) 12.7 Eos % (Auto) 0.4 Baso % (Auto) 0.2 Neut # (Auto) 6.89 H Lymph # (Auto) 1.35 Cherry # (Auto) 1.21 H Eos # (Auto) 0.04 Baso # (Auto) 0.02 Immature Gran # (Auto) 0.02 PT 11.0 INR 1.0 APTT 27.1 PTT Ratio 1.0 Sodium Potassium Chloride Carbon Dioxide Anion Gap BUN Creatinine Est Cr Clr Drug Dosing Est GFR ( Amer) Est GFR (Non-Af Amer) BUN/Creatinine Ratio Glucose Calcium Magnesium Total Bilirubin AST ALT Alkaline Phosphatase Troponin I Total Protein Albumin Globulin Albumin/Globulin Ratio Lipase TSH Free T4 SARS-CoV-2, RNA, NAAT Diagnostic Findings Chest X-Ray 01/21/22 09:43 XR chest 1V portable HISTORY: 81 years-old Male Chest Pain . Acute atypical chest pain COMPARISON: Chest radiograph 12/23/2021 TECHNIQUE: Portable AP view of the chest FINDINGS: The cardiac silhouette is mildly enlarged. There is no pneumothorax, pleural effusion, airspace consolidation or overt pulmonary edema. Nipple shadow projects over the left lung base. Degenerative changes of the shoulders and spine. IMPRESSION: Cardiomegaly without acute process. ACT 112: Negative or not required by law. The above report was generated using voice recognition software. It may contain grammatical, syntax or spelling errors. Electronically signed by: Narinder Royal M.D. 01/21/2022 9:[address] 01/21/22 10:19 CT head/brain wo con CLINICAL HISTORY: 81 years-old Male with recent head bleed. Acute tachycardia with elevated blood pressure TECHNIQUE: Multiple axial CT images of the head were obtained without contrast. A dose lowering technique was utilized adhering to the principles of ALARA. CT DOSE: 537.48 mGy.cm COMPARISON: Head CT 12/23/2021 FINDINGS: Near complete resolution of the previously described subdural hematoma adjacent to the superior and anterior aspect of the right frontal lobe. Trace residual hemorrhage is noted on image 16 series 2 measuring up to 2 mm transversely. Age-related involutional changes with mild ex vacuo ventriculomegaly. Mild white matter hypodensities suggest chronic microvascular ischemic disease. There is no midline shift, intracranial mass, hydrocephalus, territorial ischemia or abnormal extra-axial collection. Calcifications of the falx cerebri. The calvarium is intact. Mild polypoid mucosal thickening of the right maxillary sinus partially imaged. The mastoid air cells are clear. Prior bilateral lens repair. IMPRESSION: 1. No acute intracranial abnormality. 2. Near complete resolution of the previously noted subdural hematoma adjacent to the anterosuperior right frontal lobe. ACT 112: Negative or not required by law. The above report was generated using voice recognition software. It may contain grammatical, syntax or spelling errors. Electronically signed by: Narinder Royal M.D. 01/21/2022 10:45 AM ECG Additional Comments: 21-JAN-2022 09:44:33 [facility]-EDSTAT ROUTINE RETRIEVAL Atrial fibrillation with rapid ventricular response with premature ventricular or aberrantly conducted complexes Left axis deviation Incomplete right bundle branch block Abnormal ECG When compared with ECG of 23-DEC-2021 01:25, Atrial fibrillation has replaced Sinus rhythm Vent. rate has increased BY 80 BPM 25mm/s10mm/[id number] 241CID: 10Unconfirmed Vent. rate 137 BPM PA interval * ms QRS duration 94 ms QT/QTc 306/462 ms Code Status & VTE Plan Code Status Full code - discussed with the patient at bedside Supervising Physician Co-Signing Physician Notes This is an attending cosign note for full reports and documentation please see the complete dictation above. Following is a synopsis. I agree with the assessment and plan as above pertinent findings include patient presenting with lightheadedness noted to have atrial fibrillation rapid response with no significant history of such. Associated with discomfort of the left upper chest currently resolved. Patient was noted to have a heart rate in the 140s. Case discussed with cardiology who recommended digoxin IV loading dose with further orders. Otherwise patient with recent history of traumatic subarachnoid hemorr aguilar 1 month back. Patient's at bedside currently. Patient states he is feeling better heart rate is still elevated however. Head atraumatic chest largely clear no saline wheezing noted especially symmetrical. Cardiovascular irregularly irregular tachycardic. No signal murmurs noted. Abdomen soft nontender. No significant lower extremity edema. Hold anticoagulation for now patient high risk with recent intracranial bleed. Atrial fibrillation being managed by cardiology.
[2022-01-21 11:23] LABS: Thyroid Stimulating Hormone 9.293 uIu/ml (0.300-4.500)
[2022-01-21 11:58] LABS: T4 Free Thyroxine 0.87 ng/dl (0.61-1.60)
[2022-01-21] MEDS ORDERED: GLUCAGON FOR INJ 1 MG VIAL SQ PRN (12:42)
[2022-01-21] MEDS ORDERED: CARBOHYDRATES FOR HYPOGLYCEMIA PO PRN (12:42)
[2022-01-21] MEDS ORDERED: GLUCOSE 10 TABS/TUBE PO PRN (12:42)
[2022-01-21] MEDS ORDERED: DEXTROSE 50% 50 ML SYRINGE IV PRN (12:42)
[2022-01-21] MEDS ORDERED: NON-FORMULARY MEDICATION (Acetaminophen [Tylenol] 325 mg Capsule) PO PRN (12:42)
[2022-01-21] MEDS ORDERED: GLUCOSE 40% GEL 15 GM TUBE PO PRN (12:42)
[2022-01-21] MEDS ORDERED: ONDANSETRON INJ 2 MG/ML 2 ML VIAL IV PRN (12:42)
[2022-01-21] MEDS ORDERED: DICLOFENAC SOD 1% GEL 100 GM TUBE EXT PRN (12:42)
[2022-01-21] MEDS: INSULIN ASPART PER UNIT SC SCH ×3 (13:10→20:13)
--- NOTE | 2022-01-21 13:14 | Cardiology Consultation ---
Date of Consultation January 21, 2022 Assessment & Plan (1) MDD (major depressive disorder): (2) DM II (diabetes mellitus, type II), controlled: (3) History of subarachnoid hemorrhage: (4) Myasthenia gravis: (5) Atrial fibrillation with rapid ventricular response: Due to the patient's recent history of a fall with a subdural hematoma I believe he is not a candidate for anticoagulation. His blood pressure has improved after some IV fluids and to have better heart rate control I have st arted a Cardizem infusion. He should have a TSH level as well as troponin. I will order an echocardiogram. History of Present Illness Attending Physician: Magen Rivera MD History of Present Illness This is a 81-year-old male patient with a previous history of hypertension, myasthenia gravis, major depression and TIAs. In December he got out of bed and fell. He woke up on the ground. He presented to [place] with a headache and a CT revealed a subdural hematoma. [place] [facility]. He woke up this morning and did not feel well and was having some dizziness. Presented to the emergency department where he was found to be in a trial fibrillation with RVR. No significant previous cardiac history. He was given some IV fluids in the emergency department due to low blood pressure and a single dose of IV digoxin 500 mcg. He continues to be in atrial fibrillation with RVR but his blood pressure has improved and he is comfortable. Allergies Allergy/AdvReac Type Severity Reaction Status Date / Time felodipine Allergy Mild hives Verified 01/21/22 10:29 flunisolide Allergy Unknown other Verified 01/21/22 10:29 gabapentin AdvReac Mild GI SYMPTOMS Verified 01/21/22 10:29 Home Medications Medication Instructions Recorded Confirmed Type amlodipine 5 mg tablet 5 mg PO BID 12/23/21 01/21/22 History colestipol 5 gram oral granules 5 g PO QAM 12/23/21 01/21/22 History cyanocobalamin (vitamin B-12) 1,000 mcg PO QAM 12/23/21 01/21/22 History 1,000 mcg tablet diclofenac sodium 1 % topical gel 1 ea TOPICAL UD PRN 12/23/21 01/21/22 History losartan 50 mg tablet 50 mg PO QAM 12/23/21 01/21/22 History metformin 500 mg tablet,extended 500 mg PO QAM 12/23/21 01/21/22 History release 24hr pravastatin 40 mg tablet 40 mg PO QAM 12/23/21 01/21/22 History pyridostigmine bromide 60 mg 30 mg PO TID 12/23/21 01/21/22 History tablet (Mestinon) acetaminophen 325 mg capsule 325 mg PO QID PRN 01/21/22 01/21/22 History (Tylenol) omeprazole 20 mg capsule,delayed 20 mg PO DAILY 01/21/22 01/21/22 History release Patient History Medical History Ambulatory dysfunction Benign tubular adenoma of large intestine DM II (diabetes mellitus, type II), controlled HLD (hyperlipidemia) HTN (hypertension) IBS (irritable bowel syndrome) MDD (major depressive disorder) Myasthenia gravis Osteoarthritis TIA (transient ischemic attack) Surgical History History of vasectomy S/P cholecystectomy Family History Father Stroke Social History Smoking Status: Never smoker Hx Alcohol Use: No Hx Substance Use: No Preferred Language: Japanese Kiln Transfer Operator Required: No Beliefs That Will Affect Care: None marital status: Current Living Situation: Spouse current occupational status: retired Other Information That Helps Us Care for You: No Feels Safe at Home: Yes Safety Concerns: Feels Safe At This Time caffeine: Yes Assistive Devices: Cane Review of Systems Review of Systems: Review of Systems: See HPI for pertinent positives. All other 10 point review of systems are negative. Physical Exam Physical Exam: General: no acute distress and stated age Head: normocephalic, no masses, lesions, tenderness or abnormalities Eyes: conjunctiva are pink and non-injected, sclera clear Neck: supple, no adenopathy, no bruits, normal jugular venous pulse, no hepatojugular reflux Chest: normal shape and normal respiratory effort Lungs: clear to auscultation and percussion Cardiac Exam: - regular rate & rhythm, no murmurs gallops or rubs - normal S1, normal S2 Pulses: 2(+) throughout Abdomen: abdomen soft, non-tender, no abnormal masses and no hepatosplenomegaly Musculoskeletal: no gait disturbance, no joint inflammation, no deforming arthritis Extremities: no edema and no cyanosis Neuro: grossly normal exam Results & Data ([facility]) Vital Signs (Past 12 Hours) Vital Signs Temp Pulse Pulse Resp BP BP Pulse Ox 01/21/22 12:25 36.7 C 125 H 14 135/77 94 01/21/22 12:12 131 H 17 129/78 97 01/21/22 11:25 132 H 17 120/80 98 01/21/22 11:20 122 H 01/21/22 10:30 132 H 20 105/60 98 01/21/22 10:22 127 H 21 111/67 97 01/21/22 10:00 157 H 18 82/63 L 97 01/21/22 09:59 133 H 20 106/65 99 01/21/22 09:55 139 H 130 H 20 106/65 99 01/21/22 09:51 146 H 22 106/65 01/21/22 09:49 152 H 18 01/21/22 09:28 36.6 C 91 H 18 84/57 L 98 Laboratory Results Laboratory Results - last 24 hr 01/21/22 01/21/22 01/21/22 09:51 09:51 09:51 WBC 9.53 RBC 4.35 L Hgb 13.4 L Hct 40.8 L MCV 93.8 MCH 30.8 MCHC 32.8 RDW Std Deviation 52.7 H RDW Coeff of [place] 15.4 H Plt Count 178 MPV 11.3 H Immature Gran % (Auto) 0.2 Neut % (Auto) 72.3 Lymph % (Auto) 14.2 Brooke % (Auto) 12.7 Eos % (Auto) 0.4 Baso % (Auto) 0.2 Neut # (Auto) 6.89 H Lymph # (Auto) 1.35 Brooke # (Auto) 1.21 H Eos # (Auto) 0.04 Baso # (Auto) 0.02 Immature Gran # (Auto) 0.02 PT 11.0 INR 1.0 APTT 27.1 PTT Ratio 1.0 Sodium 139 Potassium 4.2 Chloride 107 Carbon Dioxide 25 Anion Gap 7 BUN 19 Creatinine 1.26 Est Cr Clr Drug Dosing 55.0 Est GFR ( Amer) 62.5 Est GFR (Non-Af Amer) 53.9 BUN/Creatinine Ratio 15.1 Glucose 130 H POC Glucose Calcium 9.0 Magnesium 2.0 Total Bilirubin 1.6 H AST 10 L ALT 5 L Alkaline Phosphatase 56 Troponin I < 0.03 Total Protein 7.0 Albumin 4.0 Globulin 3.0 Albumin/Globulin Ratio 1.3 Lipase 16 TSH Free T4 SARS-CoV-2, RNA, NAAT 01/21/22 01/21/22 01/21/22 09:51 10:00 13:09 WBC RBC Hgb Hct MCV MCH MCHC RDW Std Deviation RDW Coeff of [place] Plt Count MPV Immature Gran % (Auto) Neut % (Auto) Lymph % (Auto) Brooke % (Auto) Eos % (Auto) Baso % (Auto) Neut # (Auto) Lymph # (Auto) Brooke # (Auto) Eos # (Auto) Baso # (Auto) Immature Gran # (Auto) PT INR APTT PTT Ratio Sodium Potassium Chloride Carbon Dioxide Anion Gap BUN Creatinine Est Cr Clr Drug Dosing Est GFR ( Amer) Est GFR (Non-Af Amer) BUN/Creatinine Ratio Glucose POC Glucose 101 H Calcium Magnesium Total Bilirubin AST ALT Alkaline Phosphatase Troponin I Total Protein Albumin Globulin Albumin/Globulin Ratio Lipase TSH 9.293 H Free T4 0.87 SARS-CoV-2, RNA, NAAT NEGATIVE Medications Administered Current Inpatient Medications Acetaminophen (Acetaminophen 325 Mg Tab) 650 mg PO Q4H PRN PRN Reason: Moderate Pain Stop: 02/20/22 12:41 Colestipol HCl (Colestipol Hcl 5 Gm Powder Pack) 5 gm PO DAILY@1000 NAREN Stop: 02/21/22 09:59 Cyanocobalamin (Cyanocobalamin (B-12) 500 Mcg Tablet) 1,000 mcg PO QAM NAREN Stop: 02/21/22 08:59 Dextrose (Dextrose 50% 50 Ml Syringe) 25 - 50 ml IV UD PRN; Protocol PRN Reason: Hypoglycemia Protocol Stop: 02/20/22 12:41 Diclofenac Sodium (Diclofenac Sod 1% Gel 100 Gm Tube) 4 gm EXT QID PRN PRN Reason: Pain Stop: 02/20/22 12:41 Glucagon (Glucagon For Inj 1 Mg Vial) 1 mg SQ UD PRN; Protocol PRN Reason: Hypoglycemia Protocol Stop: 02/20/22 12:41 Glucose (Glucose 10 Tabs/Tube) 4 - 8 tabs PO UD PRN; Protocol PRN Reason: Hypoglycemia Protocol Stop: 02/20/22 12:41 Glucose (Glucose 40% Gel 15 Gm Tube) 15 - 30 gm PO UD PRN; Protocol PRN Reason: Hypoglycemia Protocol Stop: 02/20/22 12:41 Diltiazem HCl 125 mg/ Dextrose 125 mls @ 5 mls/hr IV .Q24H NAREN; Protocol Stop: 02/20/22 14:14 Insulin Aspart (Insulin Aspart Per Unit) 0 units SC ACHS NAREN Stop: 02/20/22 12:59 Last Admin: 01/21/22 13:10 Dose: Not Given Documented by: Miscellaneous (Carbohydrates For Hypoglycemia ) 15 - 30 gm PO UD PRN PRN Reason: Hypoglycemia Protocol Stop: 02/20/22 12:41 Ondansetron HCl (Ondansetron Inj 2 Mg/Ml 2 Ml Vial) 4 mg IV Q4H PRN PRN Reason: Nausea And Vomiting Stop: 02/20/22 12:41 Pantoprazole Sodium (Pantoprazole 40 Mg Tab) 40 mg PO DAILY NAREN; Protocol Stop: 02/21/22 08:59 Pravastatin Sodium (Pravastatin Sod 40 Mg Tab) 40 mg PO QAM [facility] Stop: 02/21/22 08:59 Pyridostigmine [place] (Pyridostigmine [place] 60 Mg Tab) 30 mg PO TID NAREN Stop: 02/20/22 13:59 Last Admin: 01/21/22 13:53 Dose: 30 mg Documented by:
[2022-01-21] MEDS: PYRIDOSTIGMINE BROMIDE 60 MG TAB PO SCH ×2 (13:53→20:01)
[2022-01-21] MEDS ORDERED: dilTIAZem HCl 5 MG/ML 5 ML VIAL IV STA (14:01)
[2022-01-21] MEDS ORDERED: STAT IV Infusion **Titration per Protocol STA (14:01)
[2022-01-21] MEDS: dilTIAZem HCL 125 MG in DEXTROSE 5% 100 ML IV SCH (14:55)
--- NOTE | 2022-01-21 22:30 | Electrocardiogram Report ---
Test Reason : Blood Pressure : / mmHG Vent. Rate : 137 BPM Atrial Rate : 129 BPM P-R Int : 000 ms QRS Dur : 094 ms QT Int : 306 ms P-R-T Axes : 000 -76 062 degrees QTc Int : 462 ms Atrial fibrillation with rapid ventricular response with premature ventricular or aberrantly conducte d complexes Left axis deviation Incomplete right bundle branch block Abnormal ECG When compared with ECG of 23-DEC-2021 01:25, Atrial fibrillation has replaced Sinus rhythm Vent. rate has increased BY 80 BPM Confirmed by Rui Gary ([id number]) on 01/21/2022 10:29:44 PM Referred By: Confirmed By:Rui Gary
[2022-01-22 07:21] LABS: Hemoglobin 13.5 g/dL (14.0-18.0); Mean Corpuscular Hemoglobin 30.3 pg (25-34); Mean Corpuscular Hgb Conc 32.9 g/dL (32-36); Mean Corpuscular Volume 91.9 fL (80-100); Mean Platelet Volume 11.2 fL (7.4-10.4); Platelet Count 177 K/uL (130-400); RDW Standard Deviation 50.8 fL (36.4-46.3); Red Blood Count 4.46 M/uL (4.7-6.1); White Blood Count 6.82 K/uL (4.8-10.8)
[2022-01-22] MEDS: INSULIN ASPART PER UNIT SC SCH ×4 (07:47→20:56)
[2022-01-22 07:48] LABS: Albumin Globulin Ratio 1.3 (0.9-2); Albumin Level 3.8 gm/dl (3.4-5.0); Bilirubin,Total 2.1 mg/dl (0.2-1.0); Calcium 9.3 mg/dl (8.5-10.1); Creatinine Clr Calc Pharmacy 68.7 ml/min; Est GFR (African American) 82.6 ml/min; Est GFR (Non-African American) 71.3 ml/min; Globulin 2.9 gm/dl (2.5-4.0); Phosphorus 2.8 mg/dl (2.5-4.9); Potassium 4.7 mmol/L (3.5-5.1); Total Protein 6.7 gm/dl (6.0-8.3)
[2022-01-22] MEDS: PRAVASTATIN SOD 40 MG TAB PO SCH (08:41)
[2022-01-22] MEDS: CYANOCOBALAMIN (B-12) 500 MCG TABLET PO SCH (08:41)
[2022-01-22] MEDS: PANTOprazole 40 MG TAB PO SCH (08:42)
[2022-01-22] MEDS: PYRIDOSTIGMINE BROMIDE 60 MG TAB PO SCH ×3 (08:42→21:22)
[2022-01-22 09:14] LABS: Estimated Average Glucose 126 mg/dl
[2022-01-22] MEDS: COLESTIPOL HCL 5 GM POWDER PACK PO SCH (10:30)
--- NOTE | 2022-01-22 10:43 | Electrocardiogram Report ---
Test Reason : Blood Pressure : / mmHG Vent. Rate : 091 BPM Atrial Rate : 101 BPM P-R Int : 000 ms QRS Dur : 092 ms QT Int : 358 ms P-R-T Axes : 000 -64 047 degrees QTc Int : 440 ms Atrial fibrillation with premature ventricular or aberrantly conducted complexes Left axis deviation Incomplete right bundle branch block Abnormal ECG When compared with ECG of 21-JAN-2022 09:44, Vent. rate has decreased BY 46 BPM Confirmed by Emiliano Vasquez ([id number]) on 01/22/2022 10:42:59 AM Referred By: REFERRED SELF Confirmed By:Abdirizak Vasquez
[2022-01-22] MEDS: dilTIAZem HCL 125 MG in DEXTROSE 5% 100 ML IV SCH ×2 (12:30→23:40)
--- NOTE | 2022-01-22 15:06 | Hospitalist Progress Note ---
Date of Service January 22, 2022 Assessment & Plan (1) Atrial fibrillation, new onset: Plan: per admitting service notes with addendum: (1) Weakness: (2) Atrial fibrillation with rapid ventricular response: Plan: - Admit to tele - Loading with digoxin in the ER for rate control, new onset afib, continue per cardiology recs, consulted cardiology - appreciate - EKG reviewed - Troponin is negative in the ER - Electrolytes are within normal ranges, mag of 2.0, potassium 4.2. - TSH elevated at 9.293, T4 is 0.87 - likely new hypothyroidism, not on any medications - ask PCP to follow after discharge - Recent 2 D echo: EF of 65-69%, no left segmental wall motion abnormalities, no valvular disease from 12/24/21 01/22/22 remains in a fib but HR controlled continue Cardizem drip anticoagulation contraindicated due to recent subarachnoid hemorrhage Cardiology on board (3) History of subarachnoid hemorrhage: Plan: CT head: 1. No acute intracranial abnormality. 2. Near complete resolution of the previously noted subdural hematoma adjacent to the anterosuperior right frontal lobe. no neuro symptoms (4) HTN (hypertension): Plan: - hold Amlodipine and Losartan monitor BP (5) HLD (hyperlipidemia): Plan: - Continue Pravastatin (6) DM II (diabetes mellitus, type II), controlled: Plan: - ISS with accuchecks achs - A1c 6.0 (7) MDD (major depressive disorder): Plan: - stable DVT ppx: - teds, scds, no chemical anticoagulation due to recent subarachnoid hemorrhage CODE: Full code Dispo: anticipate d/c home when medically stable Admission and Anticipated Discharge Date Admission Date: January 21, 2022 Subjective ff up for a fib RVR, etc seen resting in chair, comfortable in good spirits states he feels fine overall no chest pain, dyspnea, palpitations, dizziness no other symptoms Review of Systems Review of Systems: all noted and negative except for above Physical Exam Physical Exam: General- oriented x 3, not in distress, speaks in sentences with no effort or accessory muscle use Eyes- anicteric Neck- no JVD Lungs- clear breath sounds bilaterally, no rales/wheezes Heart- normal rate, irregularly irregular rhythm; no murmurs Abdomen- normal bowel sounds, nondistended, soft, nontender Extremities- no pretibial edema, no calf tenderness Neuro- alert, oriented x 3; no gross focal neurologic deficits Skin- warm & dry Results & Data Results & Data ([facility]) Vital Signs (Past 12 Hours) Vital Signs Temp Pulse Resp BP BP Pulse Ox 01/22/22 14:00 95 H 126/67 01/22/22 11:15 36.4 C L 86 17 124/78 95 01/22/22 10:00 99/62 L 01/22/22 07:29 36.7 C 75 17 117/72 95 01/22/22 06:00 90 121/66 01/22/22 04:58 70 111/69 01/22/22 04:00 36.3 C L 83 12 110/69 94 01/22/22 03:00 63 122/73 all noted and reviewed including below
[2022-01-22] MEDS ORDERED: AMIODARONE 200 MG TAB PO ONE (15:19)
--- NOTE | 2022-01-22 15:25 | Cardiology Progress Note ---
Date of Service January 22, 2022 Assessment & Plan (1) Atrial fibrillation with rapid ventricular response: (2) History of subarachnoid hemorrhage: (3) Ambulatory dysfunction: (4) Myasthenia gravis: Plan: Metoprolol treatment relatively contraindicated given history of myasthenia gravis. Not candidate for anticoagulation due to recent head trauma. Remains in AF , rates of 100-130 at rest on diltiazem infusion 10 mg /hr. Has been in AF at least 24 hours, was in SR at time of presentation with SAH on 12/23/21 per EKG obtained then. Family states he has no prior h/o AF. Mildly elevated TSH note. Continue Diltazem, add oral amiodarone for rate control without BP lowering effects. Admission and Anticipated Discharge Date Admission Date: January 21, 2022 Subjective Patient seen in follow up of AF RVR. Difficult to determine patient's baseline or current mental status as she says statements that make perfect sense and some that make me concerned he has a cognitive impairment. His daughters are at the bedside and are not concerned about his current mentation. Physical Exam Physical Exam: Temp Pulse Resp BP Pulse Ox 36.4 C L 95 H 17 126/67 95 01/22/22 11:15 01/22/22 14:00 01/22/22 11:15 01/22/22 14:00 01/22/22 11:15 Constitutional: WD/WN, vitals as above Respiratory: normal respiratory effort, lungs clear to auscultation Cardiovascular: Rate/Rhythm: + tachycardic and + irregularly irregular Heart Sounds: no murmur Extremities: no edema Gastrointestinal (Abdomen): normal bowel sounds, soft, nontender, no hepatosplenomegaly Results & Data ([facility]) Vital Signs (Past 12 Hours) Vital Signs Temp Pulse Resp BP BP Pulse Ox 01/22/22 14:00 95 H 126/67 01/22/22 11:15 36.4 C L 86 17 124/78 95 01/22/22 10:00 99/62 L 01/22/22 07:29 36.7 C 75 17 117/72 95 01/22/22 06:00 90 121/66 01/22/22 04:58 70 111/69 01/22/22 04:00 36.3 C L 83 12 110/69 94 Laboratory Results Cardiac Enzymes 01/22/22 Range/Units 06:35 AST 10 L (13-39) U/L Lipids 01/22/22 Range/Units 06:35 Triglycerides 85 (0-150) mg/dl Cholesterol 135 (0-200) mg/dl HDL Cholesterol 45 mg/dl Cholesterol/HDL Ratio 3.0 (0-5) CBC 01/22/22 Range/Units 06:35 WBC 6.82 (4.8-10.8) K/uL RBC 4.46 L (4.7-6.1) M/uL Hgb 13.5 L (14.0-18.0) g/dL Hct 41.0 L (42-52) % Plt Count 177 (130-400) K/uL Comprehensive Metabolic Panel 01/22/22 Range/Units 06:35 Sodium 138 (136-145) mmol/L Potassium 4.7 (3.5-5.1) mmol/L Chloride 105 (98-107) mmol/L Carbon Dioxide 26 (21-32) mmol/L BUN 13 (6-23) mg/dl Creatinine 1.00 (0.6-1.4) mg/dl Glucose 88 (70-99(Fasting)) mg/dl Calcium 9.3 (8.5-10.1) mg/dl AST 10 L (13-39) U/L ALT 4 L (7-52) U/L Alkaline Phosphatase 56 (34-104) U/L Total Protein 6.7 (6.0-8.3) gm/dl Albumin 3.8 (3.4-5.0) gm/dl Intake and Output 01/22/22 01/22/22 01/22/22 06:59 14:59 22:59 Intake Total 120 / 1240 125.00 / 125.00 Output Total 825 / 1026 200 / 200 Balance -705 / 214 -75.00 / -75.00 Intake: IV 125.00 / 125.00 dilTIAZem HCL 125 mg In 125.00 / 125.00 Dextrose 5% 100 ml @ 10 MG/HR 10 mls/hr IV .[id number] [facility] Rx#: [id number] Oral 120 / 740 Output: Urine 825 / 1025 200 / 200 Other: Weight 91.5 kg Weight Measurement Method Built in [facility]
[2022-01-22] MEDS: AMIODARONE 200 MG TAB PO SCH (18:12)
[2022-01-23 06:55] LABS: Hematocrit (blood only) 39.5 % (42-52); Hemoglobin 13.1 g/dL (14.0-18.0); Mean Corpuscular Hemoglobin 30.4 pg (25-34); Mean Corpuscular Hgb Conc 33.2 g/dL (32-36); Mean Corpuscular Volume 91.6 fL (80-100); Mean Platelet Volume 11.5 fL (7.4-10.4); Platelet Count 151 K/uL (130-400); RDW Coefficient of Variation 14.6 % (11.5-14.5); RDW Standard Deviation 49.8 fL (36.4-46.3); Red Blood Count 4.31 M/uL (4.7-6.1); White Blood Count 7.27 K/uL (4.8-10.8)
[2022-01-23 07:20] LABS: Albumin Globulin Ratio 1.2 (0.9-2); Albumin Level 3.7 gm/dl (3.4-5.0); BUN Creatinine Ratio 13.7 (10-20); Bilirubin,Total 2.1 mg/dl (0.2-1.0); Calcium 8.8 mg/dl (8.5-10.1); Creatinine Clr Calc Pharmacy 67.4 ml/min; Est GFR (African American) 80.6 ml/min; Est GFR (Non-African American) 69.6 ml/min; Globulin 3.1 gm/dl (2.5-4.0); Potassium 3.9 mmol/L (3.5-5.1); Total Protein 6.8 gm/dl (6.0-8.3)
[2022-01-23] MEDS: INSULIN ASPART PER UNIT SC SCH ×4 (07:57→20:19)
[2022-01-23] MEDS: PYRIDOSTIGMINE BROMIDE 60 MG TAB PO SCH ×3 (08:25→20:18)
[2022-01-23] MEDS: AMIODARONE 200 MG TAB PO SCH ×2 (08:25→17:52)
[2022-01-23] MEDS: PRAVASTATIN SOD 40 MG TAB PO SCH (08:28)
[2022-01-23] MEDS: CYANOCOBALAMIN (B-12) 500 MCG TABLET PO SCH (08:28)
[2022-01-23] MEDS: PANTOprazole 40 MG TAB PO SCH (08:29)
[2022-01-23] MEDS: COLESTIPOL HCL 5 GM POWDER PACK PO SCH (09:12)
--- NOTE | 2022-01-23 14:14 | Cardiology Progress Note ---
Date of Service January 23, 2022 Assessment & Plan (1) Atrial fibrillation with rapid ventricular response: (2) History of subarachnoid hemorrhage: (3) Ambulatory dysfunction: (4) Myasthenia gravis: Plan: Patient remains in AF, RVR, ventricular rates 108-130 bpm at rest. Heart rates in the 80s as documented in vital signs appear to be incorrect as they conflict with the telemetry data. Metoprolol treatment relatively contraindicated given history of myasthenia gravis. IV diltiazem effective as ventricular rates remain elevated on diltiazem 10 mg/hr. Not candidate for anticoagulation due to recent head trauma. Has been in AF at least 24 hours, was in SR at time of presentation with SAH on 12/23/21 per EKG obtained then. Continue Diltazem, add oral amiodarone for rate control without BP lowering effects, increase dose to 200 mg TID. Admission and Anticipated Discharge Date Admission Date: January 21, 2022 Subjective Mr Huizar is seen in cardiology follow up. Denies complaints. Eager for discharge. Physical Exam Physical Exam: Temp Pulse Resp BP Pulse Ox 36.6 C 108 18 92/52 L 96 01/23/22 12:00 01/23/22 2:11 pm 01/23/22 12:00 01/23/22 12:00 01/23/22 12:00 Constitutional: WD/WN, vitals as above Respiratory: normal respiratory effort, lungs clear to auscultation Cardiovascular: Rate/Rhythm: + tachycardic and + irregularly irregular Heart Sounds: no murmur Extremities: no edema Gastrointestinal (Abdomen): normal bowel sounds, soft, nontender, no hepatosplenomegaly
[2022-01-23] MEDS: dilTIAZem HCL 125 MG in DEXTROSE 5% 100 ML IV SCH (14:18)
[2022-01-23] MEDS ORDERED: AMIODARONE 200 MG TAB PO ONE (14:30)
--- NOTE | 2022-01-23 18:31 | Hospitalist Progress Note ---
Date of Service January 23, 2022 Assessment & Plan (1) Atrial fibrillation, new onset: Plan: per admitting service notes with addendum: (1) Weakness: (2) Atrial fibrillation with rapid ventricular response: Plan: - Admit to tele - Loading with digoxin in the ER for rate control, new onset afib, continue per cardiology recs, consulted cardiology - appreciate - EKG reviewed - Troponin is negative in the ER - Electrolytes are within normal ranges, mag of 2.0, potassium 4.2. - TSH elevated at 9.293, T4 is 0.87 - likely new hypothyroidism, not on any medications - ask PCP to follow after discharge - Recent 2 D echo: EF of 65-69%, no left segmental wall motion abnormalities, no valvular disease from 12/24/21 01/23/22 remains in a fib but HR controlled Amiodarone 200 mg increased to 3 times daily continue Cardizem drip anticoagulation contraindicated due to recent subarachnoid hemorrhage Cardiology on board (3) History of subarachnoid hemorrhage: Plan: CT head: 1. No acute intracranial abnormality. 2. Near complete resolution of the previously noted subdural hematoma adjacent to the anterosuperior right frontal lobe. no neuro symptoms (4) HTN (hypertension): Plan: - hold Amlodipine and Losartan monitor BP (5) HLD (hyperlipidemia): Plan: - Continue Pravastatin (6) DM II (diabetes mellitus, type II), controlled: Plan: - ISS with accuchecks achs - A1c 6.0 (7) MDD (major depressive disorder): Plan: - stable DVT ppx: - teds, scds, no chemical anticoagulation due to recent subarachnoid hemorrhage CODE: Full code Dispo: anticipate d/c home when medically stable Admission and Anticipated Discharge Date Admission Date: January 21, 2022 Subjective Follow-up for calculation, etc. Seen resting in bedside chair, comfortable, not in distress States he feels fine overall No chest pain, palpitations, dizziness No other new symptoms Review of Systems Review of Systems: all noted and negative except for above Physical Exam Physical Exam: General- oriented x 3, not in distress, speaks in sentences with no effort or accessory muscle use Eyes- anicteric Neck- no JVD Lungs- clear breath sounds, no crackles or wheezing bilaterally Heart- normal rate, irregularly irregular rhythm; no murmurs Abdomen- normal bowel sounds, nondistended, soft, nontender Extremities- no pretibial edema, no calf tenderness Neuro- alert, oriented x 3; no gross focal neurologic deficits Skin- warm & dry Results & Data Results & Data ([facility]) Vital Signs (Past 12 Hours) Vital Signs Temp Pulse Resp BP Pulse Ox 01/23/22 15:38 36.8 C 105 H 18 133/85 95 01/23/22 12:00 36.6 C 89 18 92/52 L 96 01/23/22 07:00 36.5 C 97 H 19 110/71 95 all noted and reviewed including below
[2022-01-24 07:17] LABS: Hematocrit (blood only) 39.5 % (42-52); Hemoglobin 13.3 g/dL (14.0-18.0); Mean Corpuscular Hemoglobin 30.6 pg (25-34); Mean Corpuscular Hgb Conc 33.7 g/dL (32-36); Mean Corpuscular Volume 90.8 fL (80-100); Mean Platelet Volume 11.3 fL (7.4-10.4); Platelet Count 175 K/uL (130-400); RDW Coefficient of Variation 14.5 % (11.5-14.5); RDW Standard Deviation 48.4 fL (36.4-46.3); Red Blood Count 4.35 M/uL (4.7-6.1); White Blood Count 8.26 K/uL (4.8-10.8)
[2022-01-24 07:41] LABS: Albumin Globulin Ratio 1.1 (0.9-2); BUN Creatinine Ratio 14.7 (10-20); Bilirubin,Total 2.2 mg/dl (0.2-1.0); Calcium 9.1 mg/dl (8.5-10.1); Creatinine Clr Calc Pharmacy 66.9 ml/min; Est GFR (African American) 80.6 ml/min; Est GFR (Non-African American) 69.6 ml/min; Globulin 3.5 gm/dl (2.5-4.0); Potassium 3.9 mmol/L (3.5-5.1); Total Protein 7.5 gm/dl (6.0-8.3)
[2022-01-24] MEDS: INSULIN ASPART PER UNIT SC SCH ×5 (07:44→20:56)
[2022-01-24] MEDS: AMIODARONE 200 MG TAB PO SCH ×3 (07:45→17:35)
[2022-01-24] MEDS: PYRIDOSTIGMINE BROMIDE 60 MG TAB PO SCH ×3 (07:45→20:56)
[2022-01-24] MEDS: PANTOprazole 40 MG TAB PO SCH (07:48)
[2022-01-24] MEDS: PRAVASTATIN SOD 40 MG TAB PO SCH (07:48)
[2022-01-24] MEDS: CYANOCOBALAMIN (B-12) 500 MCG TABLET PO SCH (07:48)
[2022-01-24] MEDS: COLESTIPOL HCL 5 GM POWDER PACK PO SCH (10:01)
--- NOTE | 2022-01-24 15:07 | Cardiology Progress Note ---
Date of Service January 24, 2022 Assessment & Plan (1) Atrial fibrillation with rapid ventricular response: (2) History of subarachnoid hemorrhage: (3) Ambulatory dysfunction: (4) Myasthenia gravis: Plan: Patient remains in AF, RVR, ventricular rates 110-130 bpm at rest. Metoprolol and diltiazem treatment relatively contraindicated given history of myasthenia gravis. IV diltiazem therefore discontinued on 01/23/22 and oral amiodarone titrate for rate control. Rates remain high despite amiodarone 200 mg TID with meals. Will add IV amiodarone. Admission and Anticipated Discharge Date Admission Date: January 21, 2022 Subjective Mr Huizar is seen in cardiology follow up. Denies symptoms. Two daughters whom I had met on Monday visiting with him. Physical Exam Constitutional: WD/WN, vitals as above Respiratory: normal respiratory effort, lungs clear to auscultation Cardiovascular: Rate/Rhythm: + tachycardic and + irregularly irregular Heart Sounds: no murmur Extremities: no edema Gastrointestinal (Abdomen): normal bowel sounds, soft, nontender, no hepatosplenomegaly Results & Data ([facility]) Vital Signs (Past 12 Hours) Vital Signs Temp Pulse Pulse Resp BP Pulse Ox 01/24/22 11:28 36.4 C L 107 H 16 109/74 96 01/24/22 08:31 109 H 01/24/22 07:26 36.8 C 99 H 15 108/69 96
[2022-01-24] MEDS ORDERED: AMIODARONE IV BOLUS & DRIP IV STA (15:15)
[2022-01-24] MEDS ORDERED: 0.2 MICRON FILTER SET 1 EA IV ONE (15:15)
[2022-01-24] MEDS ORDERED: AMIODARONE / D5W 150 MG/100 ML BAG IV STA (15:15)
[2022-01-24] MEDS ORDERED: STAT IV Infusion **Titration per Protocol STA (15:15)
[2022-01-24] MEDS ORDERED: AMIODARONE / D5W 360 MG/200 ML BAG IV ONE (15:25)
[2022-01-24] MEDS: ACETAMINOPHEN 325 MG TAB PO PRN (15:33)
[2022-01-24] MEDS: AMIODARONE / D5W 360 MG/200 ML BAG IV SCH ×2 (21:07→21:31)
[2022-01-25] MEDS: INSULIN ASPART PER UNIT SC SCH ×2 (07:33→11:16)
[2022-01-25] MEDS: CYANOCOBALAMIN (B-12) 500 MCG TABLET PO SCH (08:22)
[2022-01-25] MEDS: PYRIDOSTIGMINE BROMIDE 60 MG TAB PO SCH ×2 (08:22→12:25)
[2022-01-25] MEDS: AMIODARONE 200 MG TAB PO SCH ×2 (08:23→12:26)
[2022-01-25] MEDS: PANTOprazole 40 MG TAB PO SCH (08:23)
[2022-01-25] MEDS: PRAVASTATIN SOD 40 MG TAB PO SCH (08:23)
[2022-01-25] MEDS: AMIODARONE / D5W 360 MG/200 ML BAG IV SCH (08:28)
[2022-01-25] MEDS: COLESTIPOL HCL 5 GM POWDER PACK PO SCH (09:50)
--- NOTE | 2022-01-25 09:58 | Cardiology Progress Note ---
Date of Service January 25, 2022 Assessment & Plan (1) Atrial fibrillation with rapid ventricular response: (2) History of subarachnoid hemorrhage: (3) Ambulatory dysfunction: (4) Myasthenia gravis: Plan: -IV amiodarone initiated (in addition to oral therapy) on 01/24/22. -Pt converted to SR 01/24/22 at 17:43 , with minimal (1.9 s) conversion pause. -Remained on IV amiodarone overnight and SR in the 50s to 60s noted on telemetry. -DC IV amiodarone. Change oral to 200 mg BID with meals. -Repeat EKG for new baseline. Anticipate DC to home today. Would recommend repeating TSH in 6 weeks. Cardiology follow up as outpatient in 2-4 weeks [facility]. No systemic anticoagulation given h/o fall, traumatic SAH. Consider adding back ASA 81 mg daily after neurosurgery follow up. Admission and Anticipated Discharge Date Admission Date: January 21, 2022 Subjective Mr Huizar is seen in cardiology follow up today. Currently in SR. Feels well. No subjective complaints. Review of Systems Review of Systems: All systems reviewed & are unremarkable except as noted in HPI & below Physical Exam Constitutional: WD/WN, vitals as above Respiratory: normal respiratory effort, lungs clear to auscultation Cardiovascular: Rate/Rhythm: + tachycardic and + irregularly irregular Hear t Sounds: no murmur Extremities: no edema Gastrointestinal (Abdomen): normal bowel sounds, soft, nontender, no hepatosplenomegaly Neurologic: PERRL, EOMI, accommodation nl, no face palsy, no dysarthria Results & Data ([facility]) Vital Signs (Past 12 Hours) Vital Signs Temp Pulse Pulse Resp BP BP Pulse Ox 01/25/22 08:10 36.6 C 62 18 142/89 H 98 01/25/22 08:00 61 01/25/22 04:28 36.9 C 69 18 113/72 96 01/24/22 23:37 62 01/24/22 22:59 36.8 C 64 18 149/91 H 98 Laboratory Results LFts within normal limits on 01/24/22 TSH mildly elevated , 9.293 on 01/21 and 5.328 on 01/22/22 Free T4 on 01/21/22: within normal limits
--- NOTE | 2022-01-25 10:50 | Electrocardiogram Report ---
Test Reason : Blood Pressure : / mmHG Vent. Rate : 059 BPM Atrial Rate : 059 BPM P-R Int : 158 ms QRS Dur : 096 ms QT Int : 426 ms P-R-T Axes : 065 -53 046 degrees QTc Int : 421 ms Sinus bradycardia Left axis deviation Incomplete right bundle branch block Nonspecific T wave abnormality Abnormal ECG When compared with ECG of 22-JAN-2022 05:46, Sinus rhythm has replaced Atrial fibrillation Vent. rate has decreased BY 32 BPM Confirmed by Emiliano Vasquez ([id number]) on 01/25/2022 10:50:30 AM Referred By: REFERRED SELF Confirmed By:Abdirizak Vasquez
[2022-01-25] MEDS: ACETAMINOPHEN 325 MG TAB PO PRN (12:29)
[2022-01-25] MEDS ORDERED: AMIODARONE 200 MG TAB PO SCH (21:00)
--- NOTE | 2022-02-09 10:34 | Hospitalist Progress Note ---
Date of Service February 09, 2022 delayed entry date of service 01/25/22 Assessment & Plan (1) Atrial fibrillation, new onset: Plan: per admitting service notes with addendum: (1) Weakness: (2) Atrial fibrillation with rapid ventricular response: Plan: - Admit to tele - Loading with digoxin in the ER for rate control, new onset afib, continue per cardiology recs, consulted cardiology - appreciate - EKG reviewed - Troponin is negative in the ER - Electrolytes are within normal ranges, mag of 2.0, potassium 4.2. - TSH elevated at 9.293, T4 is 0.87 - likely new hypothyroidism, not on any medications - ask PCP to follow after discharge - Recent 2 D echo: EF of 65-69%, no left segmental wall motion abnormalities, no valvular disease from 12/24/21 01/24/22 remains in a fib but HR controlled [employer] consulted discharge on Amiodarone 200 mg BID discontinued Cardizem drip anticoagulation contraindicated due to recent subarachnoid hemorrhage (3) History of subarachnoid hemorrhage: Plan: CT head: 1. No acute intracranial abnormality. 2. Near complete resolution of the previously noted subdural hematoma adjacent to the anterosuperior right frontal lobe. no neuro symptoms (4) HTN (hypertension): Plan: - hold Amlodipine and Losartan monitor BP (5) HLD (hyperlipidemia): Plan: - Continue Pravastatin (6) DM II (diabetes mellitus, type II), controlled: Plan: - ISS with accuchecks achs - A1c 6.0 (7) MDD (major depressive disorder): Plan: - stable DVT ppx: - teds, scds, no chemical anticoagulation due to recent subarachnoid hemorrhage CODE: Full code Dispo: d/c home ff up with PCP in 1 week ff up with Cardio in 2 weeks Admission and Anticipated Discharge Date Admission Date: January 21, 2022 Subjective ff up for a fib, etc seen resting in chair, comfortable states he feels fine overall no chest pain, dyspnea, palpitations, dizziness no other symptoms states he is ready for discharge Review of Systems Review of Systems: all noted and negative except for above Physical Exam Physical Exam: General- oriented x 3, not in distress, speaks in sentences with no effort or accessory muscle use Eyes- anicteric Neck- no JVD Lungs- clear breath sounds bilaterally, no rales/wheezes Heart- normal rate,irregularly irregular rhythm; no murmurs Abdomen- normal bowel sounds, nondistended, soft, nontender Extremities- no pretibial edema, no calf tenderness Neuro- alert, oriented x 3; no gross focal neurologic deficits Skin- warm & dry Results & Data Results & Data ([facility]) Vital Signs (Past 12 Hours) all noted and reviewed including below
--- NOTE | 2022-02-09 10:48 | Discharge Summary ---
Date of Service February 09, 2022 Admission HPI Per Admitting Provider This is a 81-year-old male with PMHx of HTN, HLD, DM type II, MDD, and recent subarachnoid hematoma he sustained after a fall. He was hospitalized at [facility] from 12/23-12/25 where repeat CTs of the head were conducted without significant progression of the bleed. His baby aspirin was stopped at that point and was educated to not restart any anticoagulation until told to do so by neurosurgery at afollow-up appointment which originally had been scheduled on 01/19 however was canceled by the patient due to scheduling conflicts. He reports to the ER today with new onset of dizziness and not quite feeling himself last evening, also with some complaints of shoulder soreness which continued this morning when he got up. He denies any chest pain or shortness of breath, lightheadedness, passing out or recent falls. He does use a walker at home due to his Myasthenia gravis. He lives at home with his . He is able to participate in all ADLs without difficulty. He did not take any of his morning medications today. His daughter is here with him in the ER and supports the history. Pt also mentions that he recently had a CT of the abdomen which showed a lesion on his liver, and he complains of feeling pressure on the right side of his abdomen when he is laying on that side. He has some intermittent loose bowels, but no constipation or blood. Denies abdominal pain, n/v, fever, bloating or weight loss or gain, tolerating diet without difficulty. [facility] to have [facility] repeat appointment to go over the results early next week. Here in the ER he is found to be in new onset A. fib with rate in the 130s. His blood pressure has been soft since being in the ER, ranging between 80s/60s and low 100s/80s. Repeat CT of the head today shows nearly completely resolved subarachnoid hematoma. Cardiology has been consulted and discussed initiation of digoxin. We will not initiate anticoagulation in the setting of recent subarachnoid hematoma. Admission Exam Per Admitting Provider General: awake, alert, no apparent distress Head: Normocephalic, atraumatic ENT: PERRL, EOMI, no pharyngeal exudate, mucous membranes moist Chest: Clear to auscultation, on room air, no adventitious breath sounds Cardiac: irregularly irregular, rapid, no murmur, no JVD, normal peripheral pulses, good capillary refill Abdominal: NABS x 4 quadrants, soft, abdominall obese, nondistended, + minimally tender in RUQ with deep palpation, no rebound or guarding Extremities: Normal inspection, no peripheral edema or erythema, calfs nontender to palpation Psych: Normal mood and affect Neuro: AAO x 3, strength intact bilaterally and rated 5/5, no motor deficits, speech is clear, no peripheral sensory deficits Principal Diagnosis ATRIAL FIBRILLATION IN RAPID VENTRICULAR RESPONSE Discharge Exam General: awake, alert, no apparent distress Head: Normocephalic, atraumatic ENT: PERRL, EOMI, no pharyngeal exudate, mucous membranes moist Chest: Clear to auscultation, on room air, no adventitious breath sounds Cardiac: irregularly irregular, rapid, no murmur, no JVD, normal peripheral pulses, good capillary refill Abdominal: NABS x 4 quadrants, soft, abdominall obese, nondistended, + minimally tender in RUQ with deep palpation, no rebound or guarding Extremities: Normal inspection, no peripheral edema or erythema, calfs nontender to palpation Psych: Normal mood and affect Neuro: AAO x 3, strength intact bilaterally and rated 5/5, no motor deficits, speech is clear, no peripheral sensory deficits Discharge Data Allergies Allergy/AdvReac Type Severity Reaction Status Date / Time felodipine Allergy Mild hives Verified 01/21/22 10:29 flunisolide Allergy Unknown other Verified 01/21/22 10:29 gabapentin AdvReac Mild GI SYMPTOMS Verified 01/21/22 10:29 Consultations 01/21/22 11:00 ED Decision to Admit Stat 01/21/22 12:42 Consult Cardiology Routine Ordered Studies 01/21/22 10:19 CT head/brain wo con Stat FINDINGS: Near complete resolution of the previously described subdural hematoma adjacent to the superior and anterior aspect of the right frontal lobe. Trace residual hemorrhage is noted on image 16 series 2 measuring up to 2 mm transversely. Age- related involutional changes with mild ex vacuo ventriculomegaly. Mild white matter hypodensities suggest chronic microvascular ischemic disease. There is no midline shift, intracranial mass, hydrocephalus, territorial ischemia or abnormal extra-axial collection. Calcifications of the falx cerebri. The calvarium is intact. Mild polypoid mucosal thickening of the right maxillary sinus partially imaged. The mastoid air cells are clear. Prior bilateral lens repair. IMPRESSION: 1. No acute intracranial abnormality. 2. Near complete resolution of the previously noted subdural hematoma adjacent to the anterosuperior right frontal lobe. ACT 112: Negative or not required by law. Hospital Course (1) Atrial fibrillation, new onset: per admitting service notes with addendum: (1) Weakness: (2) Atrial fibrillation with rapid ventricular response: Plan: - Admit to tele - Loading with digoxin in the ER for rate control, new onset afib, continue per cardiology recs, consulted cardiology - appreciate - EKG reviewed - Troponin is negative in the ER - Electrolytes are within normal ranges, mag of 2.0, potassium 4.2. - TSH elevated at 9.293, T4 is 0.87 - likely new hypothyroidism, not on any medications - ask PCP to follow after discharge - Recent 2 D echo: EF of 65-69%, no left segmental wall motion abnormalities, no valvular disease from 12/24/21 01/24/22 remains in a fib but HR controlled Pattern Drafter consulted discharge on Amiodarone 200 mg BID discontinued Cardizem drip anticoagulation contraindicated due to recent subarachnoid hemorrhage (3) History of subarachnoid hemorrhage: Plan: CT head: 1. No acute intracranial abnormality. 2. Near complete resolution of the previously noted subdural hematoma adjacent to the anterosuperior right frontal lobe. no neuro symptoms (4) HTN (hypertension): Plan: - hold Amlodipine and Losartan monitor BP (5) HLD (hyperlipidemia): Plan: - Continue Pravastatin (6) DM II (diabetes mellitus, type II), controlled: Plan: - ISS with accuchecks achs - A1c 6.0 (7) MDD (major depressive disorder): Plan: - stable DVT ppx: - teds, scds, no chemical anticoagulation due to recent subarachnoid hemorrhage CODE: Full code Dispo: d/c home ff up with PCP in 1 week ff up with Cardio in 2 weeks Total Time Total Time Spent Total Time Spent (In Minutes): >30 MINUTES Discharge Plan Discharge Items Patient Disposition: Home - Self-Care Reason For Visit: AFIB WITH RVR Discharge Diagnosis: Atrial fibrillation with rapid ventricular response Activity: As commented below Activity Comment: Increase activity gradually as tolerated Driving/Machine Use: No driving until evaluated and allowed by primary care physician Non-emergency contact: Primary Care Provider Call non-emergency contact if: you have any medication questions, your symptoms worsen and you have a fever Follow-up/Referrals: Sanchez Fuentes DO [Pattern Drafter] - Juan Dominique MD [Primary Care Provider] - Diet: Heart Healthy Addtl Attending Provider Instructions: PLEASE REFER TO YOUR NEW MEDICATION LIST AND FOLLOW INSTRUCTIONS CAREFULLY. YOUR NEW MEDICATIONS INCLUDE: Amiodarone-for irregular heartbeat PLEASE CALL 911 IF WITH WORSENING OF SYMPTOMS, INCLUDING Palpitations, dizziness, chest pain, shortness of breath. FOLLOW UP WITH PRIMARY CARE PHYSICIAN IN 1 WEEK OUTLINED ABOVE. FOLLOW-UP WITH [facility] DR. FUENTES IN 2 TO 4 WEEKS. PLEASE CALL HIS OFFICE TO SCHEDULE AN APPOINTMENT. CONTACT INFORMATION OUTLINED ABOVE. Pending Studies at Discharge: No Stand-Alone Forms: My [facility] [employer], Smoking Cessation Medications and DC Order Prescriptions: New amiodarone 200 mg Tablet 200 mg PO BID 30 Days Qty: 60 RF: 2 Continued pyridostigmine bromide [Mestinon] 60 mg Tablet 30 mg PO TID RF: 0 metformin 500 mg Tablet Extended Release 24hr 500 mg PO QAM RF: 0 diclofenac sodium 1 % Gel 1 ea TOPICAL UD PRN (Reason: Pain) RF: 0 pravastatin 40 mg Tablet 40 mg PO QAM RF: 0 colestipol 5 gram Granules 5 g PO QAM RF: 0 cyanocobalamin (vitamin B-12) 1,000 mcg Tablet 1,000 mcg PO QAM RF: 0 acetaminophen [Tylenol] 325 mg Capsule 325 mg PO QID PRN (Reason: Pain) RF: 0 omeprazole 20 mg Capsule,Delayed Release(Dr/Ec) 20 mg PO DAILY RF: 0 Discontinued amlodipine 5 mg Tablet 5 mg PO BID RF: 0 losartan 50 mg Tablet 50 mg PO QAM RF: 0 Discharge Orders: Discharge Order (Routine); Ordered 01/25/22 Ordered By: Bandra Jaimes/Other Patient Handouts: Managing Type 2 Diabetes Admission Data Admit Date/Time: 01/21/22 11:20 Attending Provider: Bandar Herrera Admit Provider: Magen Rivera Primary Care Provider: Juan Dominique Other Providers: Nacho Foster ; Manuel Pedro ; [facility] ; Magen Rivera Other Interventions: Discharge Summary Assessment (RN) Last Done: 01/25/22 12:04
== END 2022-01-25 14:17 | disposition home or self-care (01) | DRG 310 ==
LOC: ED 09:24 → 2S 11:20 → SUATTDRO 11:20 → 2S 12:12
DX: S06.6X9S Traumatic subarachnoid hemorrhage with loss of consciousness of unspecified duration, sequela; Z79.84 Long term (current) use of oral hypoglycemic drugs; Z86.73 Personal history of transient ischemic attack (TIA), and cerebral infarction without residual deficits; E11.9 Type 2 diabetes mellitus without complications; E03.9 Hypothyroidism, unspecified; Y92.89 Other specified places as the place of occurrence of the external cause; W19.XXXS Unspecified fall, sequela; I48.91 Unspecified atrial fibrillation; K76.9 Liver disease, unspecified; I10 Essential (primary) hypertension; K58.9 Irritable bowel syndrome, unspecified; E78.5 Hyperlipidemia, unspecified; Z88.8 Allergy status to other drugs, medicaments and biological substances; F32.9 Major depressive disorder, single episode, unspecified; G70.00 Myasthenia gravis without (acute) exacerbation

== ENCOUNTER 2022-10-20 14:40 | Inpatient (IN) ==
[2022-10-20] MEDS ORDERED: ACETAMINOPHEN 1,000 MG/100 ML VIAL IV STA (14:52)
[2022-10-20] MEDS: SODIUM CHLORIDE 0.9% 1000ML 1,000 ML IV SCH ×2 (14:58→15:56)
--- NOTE | 2022-10-20 15:00 | Emergency Department Note ---
Impression & Plan Sepsis, Metabolic acidosis, Ureterolithiasis, Hydronephrosis due to obstruction of ureter, Elevated lactic acid level ED Provider Note NAME: MARIAMA PEARCE AGE: 82 SEX: M ARRIVES VIA: Ambulance INFORMANT: Patient ED PROVIDER(S): Samuel aKrimi MD CHIEF COMPLAINT: Urinary symptoms. Shaking. PLAN: Disposition: Admit MEDICAL DECISION MAKING: The patient is a pleasant 82-year-old gentleman with a past medical history of atrial fibrillation, history of myasthenia gravis, type 2 diabetes, hypertension, hyperlipidemia, IBS who presents to the emergency department via EMS for evaluation of symptoms of urinary retention and shaking that began this morning. Patient denies any recent cough, congestion or known sick contacts. He denies any objective fevers. He denies any nausea, vomiting or diarrhea. He reports he did urinate this morning but does not feel like he has to go at this time. On arrival the patient is fatigued appearing, uncomfortable but in no acute distress, initially afebrile with HR 110s and BP 90s/50s and otherwise stable. He appears clinically dry. He has mild tremors that solitario when he stops them intentionally. His abdomen is soft and nontender. Bladder scan at the bedside does not demonstrate retention. EKG without overt acute ischemia. CXR negative for acute cardiopulmonary process. WBC 1.8, nonspecific with mildly low neutrophils 1.29 and lymphopenia of 0.24. Her 1.2. Chemistry with mild metabolic acidosis with anion gap 15 and bicarbonate 18. Creatinine 1.95 increased from prior in the setting of history of stage III CKD. Lactic acid 4.7 on initial evaluation improved to 2.2 after IVF and ABX. Total bili 1.1, nonspecific with direct bilirubin 1.2 normal limits and LFTs otherwise unremarkable. High-sensitivity troponin 32.1, nonspecific. Lipase is not elevated. Procalcitonin is elevated at 9 consistent with suspected sepsis. TSH is elevated 6.5 however free T4 within normal limits. UA is consistent with infection with nitrites, leukoesterase, WBCs and 3+ bacteria with no epithelial cells. Patient was treated empirically with cefepime and vancomycin given his sepsis. He was administered 30 cc/kg of IVF. Patient was reevaluated repeatedly and heart rate had improved and blood pressure was stable though still soft at 90s/50s. Mental status had also improved. Case was discussed with Dr. Broussard, MD urology who will take the patient to the OR for ureteral stent. Patient and family updated and agree with plan. Case was discussed with Madelin Kelly PAC with [facility] hospitalist, who will evaluate the patient for admission. Triage Nursing notes reviewed and agree them. Prior medical records reviewed Vital Signs: reviewed Differential diagnosis: Infection, dehydration, metabolic abnormality, hypo/hyperglycemia, electrolyte disturbance, anemia, hypoxia, cardiac sources, intracerebral event, toxicologic, neurologic, as well as other pathologies. ER treatment provided: See below. Diagnostics interpreted by me: ECG: Sinus tachycardia, 115 bpm, no ectopy, no overt ST elevation or depression, QTC 475, QRS 82 Cardiac Monitoring: An order for continuous cardiac monitoring was placed and demonstrates sinus tachycardia, 115 bpm, no ectopy. Laboratory studies: See below Imaging studies: See below Consultation(s): Dr. Broussard, Urology on-call. Madelin Kelly PAC with [facility] hospitalist. HPI: The patient is a pleasant 82-year-old gentleman with a past medical history of atrial fibrillation, history of myasthenia gravis, type 2 diabetes, hypert ension, hyperlipidemia, IBS who presents to the emergency department via EMS for evaluation of symptoms of urinary retention and shaking that began this morning. Patient denies any recent cough, congestion or known sick contacts. He denies any objective fevers. He denies any nausea, vomiting or diarrhea. He reports he did urinate this morning but does not feel like he has to go at this time. ROS: See above HPI for pertinent positives & negatives. A total of 10 systems reviewed and were otherwise negative. VITALS:See Below PHYSICAL EXAMINATION: GENERAL: Awake, alert, fatigued-appearing, in no distress HENT: Normocephalic, atraumatic. Oropharynx with dry mucous membranes and otherwise unremarkable. EYES: Normal conjunctiva. Sclera non-icteric. NECK: Supple. No nuchal rigidity. FROM. No JVD. RESPIRATORY: Clear to auscultation. CARDIAC: Regular rate, normal rhythm. Extremities warm and well perfused. Pulses equal. ABDOMEN: Soft, non-distended. No tenderness to palpation. No rebound or guarding. No masses. RECTAL: Deferred. MUSCULOSKELETAL: Chest examination reveals no tenderness. The back is symmetrica l on inspection without obvious abnormality. There is no CVA tenderness to palpation. No joint edema. LOWER EXTREMITIES: Calves are equal size bilaterally and non-tender. No edema. No discoloration. NEURO: Normal sensorium. No sensory or motor deficits noted. Tremulous/rigors. SKIN: No rash or jaundice noted. ED COURSE: Critical Care: I have personally spent greater than 75 minutes of critical care time in the direct management of this patient. This includes bedside care, interpretation of diagnostic studies, and testing, discussion with consultants, patient, and fa louie members, and other required patient management activities. This 75 minutes is in excess of all separately billable procedures. Samuel Karimi MD Past Med/Surg History Medical History Atrial fibrillation Benign tubular adenoma of large intestine DM II (diabetes mellitus, type II), controlled HLD (hyperlipidemia) HTN (hypertension) IBS (irritable bowel syndrome) MDD (major depressive disorder) Myasthenia gravis Surgical History History of vasectomy S/P cholecystectomy Family History Father Stroke Social History Smoking Status: Never smoker Second Hand Exposure: No; Hx Alcohol Use: No Hx Substance Use: No Preferred Language: Turkish Communication Ability: Effective Data Technical Lead Required: No Beliefs That Will Affect Care: None marital status: Current Living Situation: Spouse current occupational status: retired Feels Safe at Home: Yes caffeine: Yes Assistive Devices: Cane and Glasses Allergies Allergies Allergy/AdvReac Type Severity Reaction Status Date / Time felodipine Allergy Intermediate hives Verified 10/20/22 16:29 flunisolide Allergy Unknown other Verified 10/20/22 16:29 gabapentin AdvReac Intermediate GI SYMPTOMS Verified 10/20/22 16:29 Thiazides AdvReac Intermediate CAUSED GOUT Verified 10/20/22 16:29 Home Meds Home Medications Medication Instructions Recorded Confirmed cyanocobalamin (vitamin B-12) 1,000 mcg PO QAM 12/23/21 10/20/22 1,000 mcg tablet diclofenac sodium 1 % topical gel 2 g topical DIRECTED PRN Pain 12/23/21 10/20/22 pravastatin 40 mg tablet 40 mg PO QAM 12/23/21 10/20/22 pyridostigmine bromide 60 mg 30 mg PO TID 12/23/21 10/20/22 tablet (Mestinon) acetaminophen 325 mg capsule 650 mg PO QID PRN Pain 01/21/22 10/20/22 (Tylenol) losartan 50 mg tablet 50 mg PO DAILY 10/20/22 10/20/22 trospium 20 mg tablet 20 mg PO DAILY 10/20/22 10/20/22 Results & Data (ED) Vital Signs Vital Signs - 24 hr 10/20/22 14:50 10/20/22 15:52 10/20/22 17:22 Temperature 37.3 C Temperature Source Oral Pulse Rate 114 H Pulse Rate [Apical] Pulse Rate [Right Brachial] 89 Pulse Rhythm Regular Pulse Rhythm [Right Brachial] Regular Pulse Strength Normal Pulse Strength [Right Brachial] Normal Respiratory Rate 22 18 Respiratory Effort / Characteristics Non-Labored Non-Labored Spontaneous Respiratory Depth Normal Normal Respiratory Pattern Regular Regular Blood Pressure 97/47 L Blood Pressure [Left Arm] Blood Pressure [Right Arm] 94/54 L Blood Pressure Mean 63 Blood Pressure Mean [Left Arm] Blood Pressure Mean [Right Arm] 67 Blood Pressure Position Lying Blood Pressure Position [Left Arm] Pulse Oximetry 100 100 98 Oxygen Delivery Method Nasal Cannula Room Air Oxygen Flow Rate 2 Sepsis Recent Fever Within 48 Hours Yes Sepsis New/Unexplained Change in Mental Status No Sepsis Action Taken by Nursing Physician Notified 10/20/22 18:16 10/20/22 18:30 Temperature 37.6 C H Temperature Source Oral Pulse Rate 83 Pulse Rate [Apical] 79 Pulse Rate [Right Brachial] Pulse Rhythm Pulse Rhythm [Right Brachial] Pulse Strength Pulse Strength [Right Brachial] Respiratory Rate 18 20 Respiratory Effort / Characteristics Respiratory Depth Normal Respiratory Pattern Blood Pressure 88/47 L Blood Pressure [Left Arm] 104/56 L Blood Pressure [Right Arm] Blood Pressure Mean Blood Pressure Mean [Left Arm] 72 Blood Pressure Mean [Right Arm] Blood Pressure Position Blood Pressure Position [Left Arm] Semi-fowlers Pulse Oximetry 96 96 Oxygen Delivery Method Nasal Cannula Room Air Oxygen Flow Rate 2 Sepsis Recent Fever Within 48 Hours Sepsis New/Unexplained Change in Mental Status Sepsis Action Taken by Nursing Laboratory Data Attestation: I reviewed the patient's lab results. Result diagrams: 10/20/22 15:05 10/20/22 15:05 Lab Results 10/20/22 10/20/22 10/20/22 Range/Units 15:05 15:05 15:05 WBC 1.82 L (4.8-10.8) K/ul RBC 4.23 L (4.63-6.08) M/uL Hgb 12.8 L (14.0-18.0) g/dl Hct 41.1 (40.1-51.0) % MCV 97.2 (80.0-100.0) fL MCH 30.3 (25.0-34.0) pg MCHC 31.1 L (32.0-36.0) g/dL RDW Std Deviation 50.0 H (36.4-46.3) fL RDW Coeff of [place] 13.9 (11.5-14.5) % Plt Count 142 (130-400) K/uL MPV 11.9 (9.4-12.4) fL Neutrophils % (Manual) 71 % Lymphocytes % (Manual) 13 % Reactive Lymphs % (Man) 12 % Eosinophils % (Manual) 1 % Myelocytes % (Man) 3 % Neutrophils # (Manual) 1.29 L (1.4-6.5) K/uL Lymphocytes # (Manual) 0.24 L (1.2-3.4) K/uL Reactive Lymphs # 0.22 K/uL Eosinophils # (Manual) 0.02 (0-0.50) K/uL Myelocytes # (Manual) 0.05 H (0-0) K/uL Toxic Vacuolation 2+ Polychromasia 1+ PT INR Sodium 144 (136-145) mmol/L Potassium 4.2 (3.5-5.1) mmol/L Chloride 111 H (98-107) mmol/L Carbon Dioxide 18 L (21-32) mmol/L Anion Gap 15 H (3-11) BUN 26 H (6-23) mg/dl Creatinine 1.95 H (0.6-1.4) mg/dl Est Cr Clr Drug Dosing 31.2 ml/min Est GFR ( Amer) 36.6 ml/min Est GFR (Non-Af Amer) 31.6 ml/min BUN/Creatinine Ratio 13.3 (10-20) Glucose 145 H (70-99(Fasting)) mg/dl Lactate (0.4-2.0) mmol/L Calcium 8.5 (8.5-10.1) mg/dl Phosphorus 3.0 (2.5-4.9) mg/dl Magnesium 1.9 (1.7-2.4) mg/dl Total Bilirubin 1.1 H (0.2-1.0) mg/dl Direct Bilirubin 0.2 (0-0.2) mg/dl AST 21 (13-39) U/L ALT 6 L (7-52) U/L Alkaline Phosphatase 71 (34-104) U/L Troponin I High Sens 32.1 H (0-20) pg/ml Total Protein 7.1 (6.0-8.3) gm/dl Albumin 3.5 (3.4-5.0) gm/dl Lipase 15 (11-82) U/L Procalcitonin 9.04 H (0-0.5) ng/ml TSH (0.300-4.500) uIu/ml Free T4 Urine Color Urine Appearance (Clear) Urine pH (4.5-7.5) Ur Specific Wiley (1.000-1.030) Urine Protein (Negative) Urine Glucose (UA) (Negative) Urine Ketones (Negative) Urine Blood (Negative) Urine Nitrite (Negative) Urine Bilirubin (Negative) Urine Urobilinogen (Negative) Ur Leukocyte Esterase (Negative) Urine WBC (Auto) (0-5) /hpf Urine RBC (Auto) (0-4) /hpf U Hyaline Cast (Auto) (0-5) /lpf U Epithel Cells (Auto) (0-5) /lpf Urine Bacteria (Auto) (Negative) SARS-CoV-2 (PCR) (Negative) Influenza Type A (PCR) (Neg) Influenza Type B (PCR) (Neg) RSV (RT-PCR) (Neg) 10/20/22 10/20/22 10/20/22 Range/Units 15:05 15:05 15:32 WBC (4.8-10.8) K/ul RBC (4.63-6.08) M/uL Hgb (14.0-18.0) g/dl Hct (40.1-51.0) % MCV (80.0-100.0) fL MCH (25.0-34.0) pg MCHC (32.0-36.0) g/dL RDW Std Deviation (36.4-46.3) fL RDW Coeff of [place] (11.5-14.5) % Plt Count (130-400) K/uL MPV (9.4-12.4) fL Neutrophils % (Manual) % Lymphocytes % (Manual) % Reactive Lymphs % (Man) % Eosinophils % (Manual) % Myelocytes % (Man) % Neutrophils # (Manual) (1.4-6.5) K/uL Lymphocytes # (Manual) (1.2-3.4) K/uL Reactive Lymphs # K/uL Eosinophils # (Manual) (0-0.50) K/uL Myelocytes # (Manual) (0-0) K/uL Toxic Vacuolation Polychromasia PT Cancelled Cancelled INR Cancelled Cancelled Sodium (136-145) mmol/L Potassium (3.5-5.1) mmol/L Chloride (98-107) mmol/L Carbon Dioxide (21-32) mmol/L Anion Gap (3-11) BUN (6-23) mg/dl Creatinine (0.6-1.4) mg/dl Est Cr Clr Drug Dosing ml/min Est GFR ( Amer) ml/min Est GFR (Non-Af Amer) ml/min BUN/Creatinine Ratio (10-20) Glucose (70-99(Fasting)) mg/dl Lactate (0.4-2.0) mmol/L Calcium (8.5-10.1) mg/dl Phosphorus (2.5-4.9) mg/dl Magnesium (1.7-2.4) mg/dl Total Bilirubin (0.2-1.0) mg/dl Direct Bilirubin (0-0.2) mg/dl AST (13-39) U/L ALT (7-52) U/L Alkaline Phosphatase (34-104) U/L Troponin I High Sens (0-20) pg/ml Total Protein (6.0-8.3) gm/dl Albumin (3.4-5.0) gm/dl Lipase (11-82) U/L Procalcitonin (0-0.5) ng/ml TSH 6.566 H (0.300-4.500) uIu/ml Free T4 Not Reportable Urine Color Urine Appearance (Clear) Urine pH (4.5-7.5) Ur Specific Wiley (1.000-1.030) Urine Protein (Negative) Urine Glucose (UA) (Negative) Urine Ketones (Negative) Urine Blood (Negative) Urine Nitrite (Negative) Urine Bilirubin (Negative) Urine Urobilinogen (Negative) Ur Leukocyte Esterase (Negative) Urine WBC (Auto) (0-5) /hpf Urine RBC (Auto) (0-4) /hpf U Hyaline Cast (Auto) (0-5) /lpf U Epithel Cells (Auto) (0-5) /lpf Urine Bacteria (Auto) (Negative) SARS-CoV-2 (PCR) (Negative) Influenza Type A (PCR) (Neg) Influenza Type B (PCR) (Neg) RSV (RT-PCR) (Neg) 10/20/22 10/20/22 10/20/22 Range/Units 15:48 15:58 16:03 WBC (4.8-10.8) K/ul RBC (4.63-6.08) M/uL Hgb (14.0-18.0) g/dl Hct (40.1-51.0) % MCV (80.0-100.0) fL MCH (25.0-34.0) pg MCHC (32.0-36.0) g/dL RDW Std Deviation (36.4-46.3) fL RDW Coeff of [place] (11.5-14.5) % Plt Count (130-400) K/uL MPV (9.4-12.4) fL Neutrophils % (Manual) % Lymphocytes % (Manual) % Reactive Lymphs % (Man) % Eosinophils % (Manual) % Myelocytes % (Man) % Neutrophils # (Manual) (1.4-6.5) K/uL Lymphocytes # (Manual) (1.2-3.4) K/uL Reactive Lymphs # K/uL Eosinophils # (Manual) (0-0.50) K/uL Myelocytes # (Manual) (0-0) K/uL Toxic Vacuolation Polychromasia PT 13.0 H INR 1.2 H Sodium (136-145) mmol/L Potassium (3.5-5.1) mmol/L Chloride (98-107) mmol/L Carbon Dioxide (21-32) mmol/L Anion Gap (3-11) BUN (6-23) mg/dl Creatinine (0.6-1.4) mg/dl Est Cr Clr Drug Dosing ml/min Est GFR ( Amer) ml/min Est GFR (Non-Af Amer) ml/min BUN/Creatinine Ratio (10-20) Glucose (70-99(Fasting)) mg/dl Lactate 4.7 H* (0.4-2.0) mmol/L Calcium (8.5-10.1) mg/dl Phosphorus (2.5-4.9) mg/dl Magnesium (1.7-2.4) mg/dl Total Bilirubin (0.2-1.0) mg/dl Direct Bilirubin (0-0.2) mg/dl AST (13-39) U/L ALT (7-52) U/L Alkaline Phosphatase (34-104) U/L Troponin I High Sens (0-20) pg/ml Total Protein (6.0-8.3) gm/dl Albumin (3.4-5.0) gm/dl Lipase (11-82) U/L Procalcitonin (0-0.5) ng/ml TSH (0.300-4.500) uIu/ml Free T4 Urine Color Urine Appearance (Clear) Urine pH (4.5-7.5) Ur Specific Wiley (1.000-1.030) Urine Protein (Negative) Urine Glucose (UA) (Negative) Urine Ketones (Negative) Urine Blood (Negative) Urine Nitrite (Negative) Urine Bilirubin (Negative) Urine Urobilinogen (Negative) Ur Leukocyte Esterase (Negative) Urine WBC (Auto) (0-5) /hpf Urine RBC (Auto) (0-4) /hpf U Hyaline Cast (Auto) (0-5) /lpf U Epithel Cells (Auto) (0-5) /lpf Urine Bacteria (Auto) (Negative) SARS-CoV-2 (PCR) NEGATIVE (Negative) Influenza Type A (PCR) Negative (Neg) Influenza Type B (PCR) Negative (Neg) RSV (RT-PCR) Negative (Neg) 10/20/22 10/20/22 Range/Units 16:03 16:26 WBC (4.8-10.8) K/ul RBC (4.63-6.08) M/uL Hgb (14.0-18.0) g/dl Hct (40.1-51.0) % MCV (80.0-100.0) fL MCH (25.0-34.0) pg MCHC (32.0-36.0) g/dL RDW Std Deviation (36.4-46.3) fL RDW Coeff of [place] (11.5-14.5) % Plt Count (130-400) K/uL MPV (9.4-12.4) fL Neutrophils % (Manual) % Lymphocytes % (Manual) % Reactive Lymphs % (Man) % Eosinophils % (Manual) % Myelocytes % (Man) % Neutrophils # (Manual) (1.4-6.5) K/uL Lymphocytes # (Manual) (1.2-3.4) K/uL Reactive Lymphs # K/uL Eosinophils # (Manual) (0-0.50) K/uL Myelocytes # (Manual) (0-0) K/uL Toxic Vacuolation Polychromasia PT INR Sodium (136-145) mmol/L Potassium (3.5-5.1) mmol/L Chloride (98-107) mmol/L Carbon Dioxide (21-32) mmol/L Anion Gap (3-11) BUN (6-23) mg/dl Creatinine (0.6-1.4) mg/dl Est Cr Clr Drug Dosing ml/min Est GFR ( Amer) ml/min Est GFR (Non-Af Amer) ml/min BUN/Creatinine Ratio (10-20) Glucose (70-99(Fasting)) mg/dl Lactate (0.4-2.0) mmol/L Calcium (8.5-10.1) mg/dl Phosphorus (2.5-4.9) mg/dl Magnesium (1.7-2.4) mg/dl Total Bilirubin (0.2-1.0) mg/dl Direct Bilirubin (0-0.2) mg/dl AST (13-39) U/L ALT (7-52) U/L Alkaline Phosphatase (34-104) U/L Troponin I High Sens (0-20) pg/ml Total Protein (6.0-8.3) gm/dl Albumin (3.4-5.0) gm/dl Lipase (11-82) U/L Procalcitonin (0-0.5) ng/ml TSH (0.300-4.500) uIu/ml Free T4 1.18 Urine Color Yellow Urine Appearance Cloudy A (Clear) Urine pH 8.0 H (4.5-7.5) Ur Specific Wiley 1.013 (1.000-1.030) Urine Protein 2+ H (Negative) Urine Glucose (UA) Negative (Negative) Urine Ketones Negative (Negative) Urine Blood 2+ H (Negative) Urine Nitrite Positive A (Negative) Urine Bilirubin Negative (Negative) Urine Urobilinogen Negative (Negative) Ur Leukocyte Esterase 1+ H (Negative) Urine WBC (Auto) >30 H (0-5) /hpf Urine RBC (Auto) 5-10 H (0-4) /hpf U Hyaline Cast (Auto) 5-10 H (0-5) /lpf U Epithel Cells (Auto) 0-5 (0-5) /lpf Urine Bacteria (Auto) 3+ H (Negative) SARS-CoV-2 (PCR) (Negative) Influenza Type A (PCR) (Neg) Influenza Type B (PCR) (Neg) RSV (RT-PCR) (Neg) Administered Medications Lactated Ringer's (Lr) 1,000 mls @ 200 mls/hr IV .Q5H ONE Stop: 10/21/22 03:35 Last Admin: 10/20/22 23:10 Dose: 200 mls/hr Documented By: JYOTI Insulin Aspart (Insulin Aspart Per Unit) 0 units SC ACHS [facility] Stop: 11/19/22 21:22 Last Admin: 10/20/22 21:54 Dose: Not Given Documented By: AMJuan Pyridostigmine [place] (Pyridostigmine [place] 60 Mg Tab) 30 mg PO TID [facility] Stop: 11/19/22 21:29 Last Admin: 10/20/22 21:54 Dose: 30 mg Documented By: JYOTI Discontinued Medications Diatrizoate Meglumine (Diatrizoate Meglumine 30% 100ml Vial) 3 ml INSTIL ONCE ONE Stop: 10/20/22 19:37 Last Admin: 10/20/22 19:36 Dose: 3 ml Documented By: [id number] Acetaminophen (Ofirmev) 1,000 mg in 100 mls @ 400 mls/hr IV NOW STA Stop: 10/20/22 15:06 Last Infusion: 12/15/22 15:58 Dose: 0 mls/hr Documented By: Admin: 10/20/22 15:01 Dose: 400 mls/hr Documented By: CATHY Sodium Chloride (Nss 1000ml) 1,000 mls @ 999 mls/hr IV .Q1H1M NAREN Stop: 10/20/22 17:00 Last Infusion: 10/20/22 15:58 Dose: 0 mls/hr Documented By: Admin: 10/20/22 15:56 Dose: 999 mls/hr Documented By: Infusion: 10/20/22 15:56 Dose: 999 mls/hr Documented By: Admin: 10/20/22 14:58 Dose: 999 mls/hr Documented By: CATHY Cefepime HCl (Maxipime) 2,000 mg in 20 mls @ 5 mls/min IV NOW STA; Protocol Stop: 10/20/22 17:14 Last Admin: 10/20/22 17:20 Dose: 5 mls/min Documented By: CATHY Vancomycin HCl 2,250 mg/ (Sodium Chloride) 545 mls @ 200 mls/hr IV NOW ONE Stop: 10/20/22 19:54 Last Admin: 10/20/22 17:26 Dose: 200 mls/hr Documented By: CATHY Lactated Ringer's (Lr) 500 mls @ 999 mls/hr IV .Q31M ONE Stop: 10/20/22 18:06 Last Infusion: 10/20/22 21:15 Dose: 0 mls/hr Documented By: Admin: 10/20/22 17:55 Dose: 999 mls/hr Documented By: CATHY Oxycodone HCl (Oxycodone Hcl Ir 5 Mg Tab (Immediate Release)) 5 mg PO Q4H PRN PRN Reason: Pain Stop: 11/03/22 23:27 Last Admin: 10/20/22 23:43 Dose: 5 mg Documented By: JYOTI Oxycodone HCl (Oxycodone Hcl Ir 5 Mg Tab (Immediate Release)) 5 mg PO NOW STA Stop: 10/21/22 00:54 Last Admin: 10/21/22 01:04 Dose: 5 mg Documented By: JYOTI Imaging Data Radiologist's Impression: Abdomen/Pelvis CT 10/20/22 14:52 CT OF THE ABDOMEN AND PELVIS WITHOUT CONTRAST CLINICAL HISTORY: Abdominal pain. Difficulty urinating. COMPARISON STUDY: No previous studies for comparison. TECHNIQUE: Axial images of the abdomen and pelvis were obtained without IV contrast. Images were reviewed in the axial, sagittal, and coronal planes. Automated exposure control was utilized for the study. A dose lowering technique was utilized adhering to the principles of ALARA. FINDINGS: Lung bases are unremarkable. Mild cardiomegaly is present. No pneumatosis, free air or portal venous gas. A 4 mm mid left ureteral calculus at the S1 level results in mild left hydronephrosis. Bilateral perinephric stranding is slightly greater than left. There is moderate renal atrophy. Numerous water attenuation bilateral renal lesions are suboptimally assessed on this unenhanced exam but favor cysts. There is also a 1.7 cm intermediate attenuation lesion within the posterior cortex of the midpole the right kidney on axial image 180 [id number]. No additional urinary calculi are present. Prostate is enlarged, measuring 5 cm in transverse dimension. Bladder wall thickening is noted. This is accentuated by underdistention. There is adjacent stranding. Evaluation of the remainder of the abdomen and pelvis is suboptimal as unenhanced exam. Mild dilatation of the common bile duct is likely related to cholecystectomy. Liver, spleen, adrenal glands and pancreas are unremarkable. There is no lymphadenopathy. The appendix is normal. There is no evidence for a bowel obstruction. Colonic diverticulosis is present without evidence for acute diverticulitis. A fat and calcification containing peritoneal loose body is benign. Moderate amount of stool within the distal colon and rectum is present. No acute fracture within the visualized skeletal structures. IMPRESSION: 1. 4 mm mid left ureteral calculus which results in mild left hydronephrosis. No additional urinary calculi. 2. Bladder wall thickening with adjacent stranding which could be correlated with urinalysis to exclude cystitis. 3. 1.7 cm intermediate attenuation right renal lesion. This could reflect a complex cyst or small solid renal lesion. Nonemergent renal ultrasound is recommended. Additional bilateral water attenuation renal lesions favor cysts. 4. Moderate amount of stool within the distal colon and rectum. ACT 112: Negative or not required by law. Electronically signed by: Kiet Fabian M.D. 10/20/2022 5:22 PM Chest X-Ray 10/20/22 14:52 SINGLE VIEW CHEST CLINICAL HISTORY: Sepsis. Dyspnea and weakness. FINDINGS: An AP, portable, upright chest radiograph is compared to study dated 01/21/2022. The heart is enlarged noting atherosclerotic calcification of the thoracic aorta. The pulmonary vasculature is not congested. Chronic interstitial thickening similar to previous. There is mild bibasilar scarring/atelectasis. The lungs and pleural spaces are otherwise clear. No pneumothorax is seen. The skeletal structures are osteopenic. The bony thorax is grossly intact. Arthritic change is seen in the shoulders. IMPRESSION: Cardiomegaly with no active disease in the chest. ACT 112: Negative or not required by law. Electronically signed by: Gomez Aguirre M.D. 10/20/2022 3:10 PM Discharge Plan Visit Data Chief Complaint: Unable to Void Stated Complaint: URINARY RETENTION ED Provider: Samuel Karimi Discharge Problem: Sepsis, Metabolic acidosis, Ureterolithiasis, Hydronephrosis due to obstruction of ureter, Elevated lactic acid level Patient Disposition: Admitted As Inpatient Discharge Instructions Interventions: ED Discharge Assessment Last Done: 10/20/22 18:16
--- NOTE | 2022-10-20 15:11 | XRay Report ---
SINGLE VIEW CHEST CLINICAL HISTORY: Sepsis. Dyspnea and weakness. FINDINGS: An AP, portable, upright chest radiograph is compared to study dated 01/21/2022. The heart i s enlarged noting atherosclerotic calcification of the thoracic aorta. The pulmonary vasculature is n ot congested. Chronic interstitial thickening similar to previous. There is mild bibasilar scarring/a telectasis. The lungs and pleural spaces are otherwise clear. No pneumothorax is seen. The skeletal s tructures are osteopenic. The bony thorax is grossly intact. Arthritic change is seen in the shoulder s. IMPRESSION: Cardiomegaly with no active disease in the chest. ACT 112: Negative or not required by law. Electronically signed by: Gomez Aguirre M.D. 10/20/2022 3:10 PM
[2022-10-20 16:03] LABS: Albumin Level 3.5 gm/dl (3.4-5.0); BUN Creatinine Ratio 13.3 (10-20); Bilirubin Direct 0.2 mg/dl (0-0.2); Bilirubin,Total 1.1 mg/dl (0.2-1.0); Calcium 8.5 mg/dl (8.5-10.1); Creatinine Clr Calc Pharmacy 31.2 ml/min; Est GFR (African American) 36.6 ml/min; Est GFR (Non-African American) 31.6 ml/min; Magnesium 1.9 mg/dl (1.7-2.4); Potassium 4.2 mmol/L (3.5-5.1); Total Protein 7.1 gm/dl (6.0-8.3); Troponin I High Sensitivity 32.1 pg/ml (0-20)
[2022-10-20 16:07] LABS: Thyroid Stimulating Hormone 6.566 uIu/ml (0.300-4.500)
[2022-10-20 16:29] LABS: INR 1.2 (0.9-1.1)
[2022-10-20 16:34] LABS: Influenza A virus by PCR Negative (Neg); Influenza B virus by PCR Negative (Neg); RSV by PCR Negative (Neg); SARS CoV2 RNA(COVID-19) Ceph NEGATIVE (Negative)
[2022-10-20 16:42] LABS: Toxic Vacuolation 2+
[2022-10-20 16:45] LABS: Eosinophils # (manual) 0.02 K/uL (0-0.50); Eosinophils % (manual) 1 %; Hematocrit (blood only) 41.1 % (40.1-51.0); Hemoglobin 12.8 g/dl (14.0-18.0); Lymphocytes # (manual) 0.24 K/uL (1.2-3.4); Lymphocytes % (manual) 13 %; Mean Corpuscular Hemoglobin 30.3 pg (25.0-34.0); Mean Corpuscular Hgb Conc 31.1 g/dL (32.0-36.0); Mean Corpuscular Volume 97.2 fL (80.0-100.0); Mean Platelet Volume 11.9 fL (9.4-12.4); Myelocytes # (manual) 0.05 K/uL (0-0); Myelocytes % (manual) 3 %; Neutrophils # (manual) 1.29 K/uL (1.4-6.5); Neutrophils % (manual) 71 %; Platelet Count 142 K/uL (130-400); Polychromasia 1+; RDW Coefficient of Variation 13.9 % (11.5-14.5); Reactive Lymphocytes # (manual) 0.22 K/uL; Reactive Lymphocytes % (manual) 12 %; Red Blood Count 4.23 M/uL (4.63-6.08); White Blood Count 1.82 K/ul (4.8-10.8)
[2022-10-20 16:45] LABS: Appearance Urine Cloudy (Clear); Bacteria Urine Automated 3+ (Negative); Bilirubin Urine Negative (Negative); Blood Urine 2+ (Negative); Color Urine Yellow; Epithelial Cell Urine Auto 0-5 /lpf (0-5); Glucose Urine UA Negative (Negative); Ketones Urine Negative (Negative); Leukocyte Esterase Urine 1+ (Negative); Nitrite Urine Positive (Negative); Protein Urine 2+ (Negative); Specific Gravity Urine 1.013 (1.000-1.030); Urobilinogen Urine Negative (Negative); WBC Urine Automated >30 /hpf (0-5)
[2022-10-20] MEDS ORDERED: CEFEPIME 2,000 MG/20 ML VIAL IV STA (17:11)
[2022-10-20] MEDS ORDERED: VANCOMYCIN HCL 2,250 MG in SODIUM CHLORIDE 0.9% 500 ML IV ONE (17:11)
[2022-10-20] MEDS ORDERED: VANCOMYCIN CONSULT ACTIVE PRN (17:11)
--- NOTE | 2022-10-20 17:25 | CT Scan Report ---
CT OF THE ABDOMEN AND PELVIS WITHOUT CONTRAST CLINICAL HISTORY: Abdominal pain. Difficulty urinating. COMPARISON STUDY: No previous studies for comparison. TECHNIQUE: Axial images of the abdomen and pelvis were obtained without IV contrast. Images were revi ewed in the axial, sagittal, and coronal planes. Automated exposure control was utilized for the gemma dy. A dose lowering technique was utilized adhering to the principles of ALARA. FINDINGS: Lung bases are unremarkable. Mild cardiomegaly is present. No pneumatosis, free air or port al venous gas. A 4 mm mid left ureteral calculus at the S1 level results in mild left hydronephrosis. Bilateral perinephric stranding is slightly greater than left. There is moderate renal atrophy. Nume fiorella water attenuation bilateral renal lesions are suboptimally assessed on this unenhanced exam but favor cysts. There is also a 1.7 cm intermediate attenuation lesion within the posterior cortex of th e midpole the right kidney on axial image [id number]. No additional urinary calculi are present. Prostat e is enlarged, measuring 5 cm in transverse dimension. Bladder wall thickening is noted. This is acce ntuated by underdistention. There is adjacent stranding. Evaluation of the remainder of the abdomen a nd pelvis is suboptimal as unenhanced exam. Mild dilatation of the common bile duct is likely related to cholecystectomy. Liver, spleen, adrenal glands and pancreas are unremarkable. There is no lymphad enopathy. The appendix is normal. There is no evidence for a bowel obstruction. Colonic diverticulosi s is present without evidence for acute diverticulitis. A fat and calcification containing peritoneal loose body is benign. Moderate amount of stool within the distal colon and rectum is present. No acu te fracture within the visualized skeletal structures. IMPRESSION: 1. 4 mm mid left ureteral calculus which results in mild left hydronephrosis. No additional urinary c alculi. 2. Bladder wall thickening with adjacent stranding which could be correlated with urinalysis to exclu de cystitis. 3. 1.7 cm intermediate attenuation right renal lesion. This could reflect a complex cyst or small jean-pierre id renal lesion. Nonemergent renal ultrasound is recommended. Additional bilateral water attenuation renal lesions favor cysts. 4. Moderate amount of stool within the distal colon and rectum. ACT 112: Negative or not required by law. Electronically signed by: Kiet Fabian M.D. 10/20/2022 5:22 PM
[2022-10-20] MEDS ORDERED: LACTATED RINGER'S 500 ML IV ONE (17:36)
[2022-10-20] MEDS ORDERED: LIDOCAINE 2% MPF LOCAL 5 ML VIAL INFIL ONE (18:13)
[2022-10-20] MEDS ORDERED: PROPOFOL IV EMULSION 10 MG/ML 20 ML VIAL IV ONE (18:13)
[2022-10-20] MEDS ORDERED: ONDANSETRON INJ 2 MG/ML 2 ML VIAL ONE (18:13)
[2022-10-20] MEDS ORDERED: fentaNYL citrate 100 MCG/2 ML VIAL ONE (18:13)
--- NOTE | 2022-10-20 18:21 | Anesthesiology Consultation ---
Date of Service October 20, 2022 Assessment & Plan (1) Encounter for pre-operative examination: Chart Review Chart Review: Acceptable Risk for Surgery (emergency surgery) and Patient NOT seen in Pre Admission Testing Consults Requested none History Surgery Operation Date: 10/20/22 19:00 Proposed Procedures p Cystoscopy with Left Ureteral stent insertion(Left) - Luis Broussard MD Height/Weight Height: 5 ft 10 in Weight: 85 kg Allergies Allergy/AdvReac Type Severity Reaction Status Date / Time felodipine Allergy Intermediate hives Verified 10/20/22 16:29 flunisolide Allergy Unknown other Verified 10/20/22 16:29 gabapentin AdvReac Intermediate GI SYMPTOMS Verified 10/20/22 16:29 Thiazides AdvReac Intermediate CAUSED GOUT Verified 10/20/22 16:29 Medications Home Medications Medication Instructions Recorded Confirmed Last Taken cyanocobalamin (vitamin B-12) 1,000 mcg PO QAM 12/23/21 10/20/22 10/20/22 1,000 mcg tablet diclofenac sodium 1 % topical gel 2 g topical DIRECTED PRN Pain 12/23/21 10/20/22 01/20/22 pravastatin 40 mg tablet 40 mg PO QAM 12/23/21 10/20/22 10/20/22 pyridostigmine bromide 60 mg 30 mg PO TID 12/23/21 10/20/22 10/20/22 08:00 tablet (Mestinon) acetaminophen 325 mg capsule 650 mg PO QID PRN Pain 01/21/22 10/20/22 Unknown (Tylenol) losartan 50 mg tablet 50 mg PO DAILY 10/20/22 10/20/22 10/20/22 trospium 20 mg tablet 20 mg PO DAILY 10/20/22 10/20/22 10/20/22 Active Medications Generic Name Dose Route Start Last Admin Trade Name Freq PRN Reason Stop Dose Admin Vancomycin HCl 2,250 mg/ 545 mls @ 200 mls/hr 10/20/22 17:11 10/20/22 17:26 Sodium Chloride IV 10/20/22 19:54 200 mls/hr NOW ONE Administration Past Medical History Medical History Ambulatory dysfunction Benign tubular adenoma of large intestine DM II (diabetes mellitus, type II), controlled HLD (hyperlipidemia) HTN (hypertension) IBS (irritable bowel syndrome) MDD (major depressive disorder) Myasthenia gravis Osteoarthritis TIA (transient ischemic attack) Past Family History Family History Father Stroke Past Surgical History Surgical History History of vasectomy S/P cholecystectomy Social History Smoking Status: Never smoker Hx Alcohol Use: No Hx Substance Use: No Physical Exam Vital Signs Last Vital Signs Temp 37.3 C 10/20/22 14:50 Pulse 83 10/20/22 18:16 Resp 18 10/20/22 18:16 BP 88/47 L 10/20/22 18:16 Pulse Ox 96 10/20/22 18:16 O2 Del Method 10/20/22 18:16 O2 Flow Rate 2 10/20/22 18:16 Testing Laboratory Results 10/20/22 15:05 10/20/22 15:05 PT 13.0 Seconds (9.0-12.0) H 10/20/22 16:03 INR 1.2 (0.9-1.1) H 10/20/22 16:03 Urine Color Yellow 10/20/22 16:26 Urine Appearance Cloudy (Clear) A 10/20/22 16:26 Urine pH 8.0 (4.5-7.5) H 10/20/22 16:26 Ur Specific [place] 1.013 (1.000-1.030) 10/20/22 16:26 Urine Protein 2+ (Negative) H 10/20/22 16:26 Urine Glucose (UA) Negative (Negative) 10/20/22 16:26 Urine Ketones Negative (Negative) 10/20/22 16:26 Urine Nitrite Positive (Negative) A 10/20/22 16:26 Ur Leukocyte Esterase 1+ (Negative) H 10/20/22 16:26 Urine WBC (Auto) >30 /hpf (0-5) H 10/20/22 16:26 Urine RBC (Auto) 5-10 /hpf (0-4) H 10/20/22 16:26 U Hyaline Cast (Auto) 5-10 /lpf (0-5) H 10/20/22 16:26 U Epithel Cells (Auto) 0-5 /lpf (0-5) 10/20/22 16:26 Urine Bacteria (Auto) 3+ (Negative) H 10/20/22 16:26 Electrocardiogram Date: 10/20/22 Findings: + ST @ (115) left axis deviation Chest X-Ray Date: 10/20/22 SINGLE VIEW CHEST CLINICAL HISTORY: Sepsis. Dyspnea and weakness. FINDINGS: An AP, portable, upright chest radiograph is compared to study dated 01/21/2022. The heart is enlarged noting atherosclerotic calcification of the t horacic aorta. The pulmonary vasculature is not congested. Chronic interstitial thickening similar to previous. There is mild bibasilar scarring/atelectasis. The lungs and pleural spaces are otherwise clear. No pneumothorax is seen. The skeletal structures are osteopenic. The bony thorax is grossly intact. Arthritic change is seen in the shoulders. IMPRESSION: Cardiomegaly with no active disease in the chest. ACT 112: Negative or not required by law. Echocardiogram Date: 01/22/22 EF: 60-65 LV Function: normal Other Findings: + atrial enlargement (mild left dilation) afib with RVR Stress Test Date: 07/01/22 Type: nuclear Findings: + WNL Other Testing CT OF THE ABDOMEN AND PELVIS WITHOUT CONTRAST CLINICAL HISTORY: Abdominal pain. Difficulty urinating. COMPARISON STUDY: No previous studies for comparison. TECHNIQUE: Axial images of the abdomen and pelvis were obtained without IV contrast. Images were reviewed in the axial, sagittal, and coronal planes. Automated exposure control was utilized for the study. A dose lowering technique was utilized adhering to the principles of ALARA. FINDINGS: Lung bases are unremarkable. Mild cardiomegaly is present. No pneumatosis, free air or portal venous gas. A 4 mm mid left ureteral calculus at the S1 level results in mild left hydronephrosis. Bilateral perinephric stranding is slightly greater than left. There is moderate renal atrophy. N umerous water attenuation bilateral renal lesions are suboptimally assessed on this unenhanced exam but favor cysts. There is also a 1.7 cm intermediate attenuation lesion within the posterior cortex of the midpole the right kidney on axial image 180 511. No additional urinary calculi are present. Prostate is enlarged, measuring 5 cm in transverse dimension. Bladder wall thickening is noted. This is accentuated by underdistention. There is adjacent stranding. Evaluation of the remainder of the abdomen and pelvis is suboptimal as unenhanced exam. Mild dilatation of the common bile duct is likely related to cholecystectomy. Liver, spleen, adrenal glands and pancreas are unremarkable. There is no lymphadenopathy. The appendix is normal. There is no evidence for a bowel obstruction. Colonic diverticulosis is present without evidence for acute diverticulitis. A fat and calcification containing peritoneal loose body is benign. Moderate amount of stool within the distal colon and rectum is present. No acute fracture within the visualized skeletal structures. IMPRESSION: 1. 4 mm mid left ureteral calculus which results in mild left hydronephrosis. No additional urinary calculi. 2. Bladder wall thickening with adjacent stranding which could be correlated with urinalysis to exclude cystitis. 3. 1.7 cm intermediate attenuation right renal lesion. This could reflect a complex cyst or small solid renal lesion. Nonemergent renal ultrasound is recommended. Additional bilateral water attenuation renal lesions favor cysts. 4. Moderate amount of stool within the distal colon and rectum. ACT 112: Negative or not required by law.
--- NOTE | 2022-10-20 18:22 | History & Physical Report ---
Date of Service October 20, 2022 Assessment & Plan (1) Sepsis: (2) Complicated UTI (urinary tract infection): (3) Obstructive uropathy: (4) HTN (hypertension): (5) Atrial fibrillation: (6) History of subarachnoid hemorrhage: (7) DM II (diabetes mellitus, type II), controlled: (8) Myasthenia gravis: (9) MDD (major depressive disorder): (10) HLD (hyperlipidemia): (11) SHWETA (acute kidney injury): Plan This is a 81-year-old male with PMH of HTN, myasthenia gravis, atrial fi brillation not on anticoagulation due to h/o SAH, HLD, DM type II, MDD who presents with urinary retention over the past few weeks and was found to have sepsis 2/2 obstructive uropathy and complicated UTI. Sepsis Obstructive uropathy Complicated UTI BP 90s over 40s, heart rate 110, WBC 1.82, lactate 4.7, procalcitonin 9, grossly abnormal UA CT abdomen pelvis with 4 mm mid left ureteral calculus, resulting in mild left hydronephrosis Urology consulted - patient will be taken to OR for cystoscopy and stent placement Continue cefepime and vanc, follow cultures Received 30mg/kg fluid resuscitation in the ED, BP now 104/56 Right renal lesion on CT Incidental finding of.7 cm intermediate attenuation right renal lesion. This could reflect a complex cyst or small solid renal lesion. Nonemergent renal ultrasound is recommended HTN Hold losartan for now HLD (hyperlipidemia) Continue Pravastatin DM II (diabetes mellitus, type II) A1c 6.0 in January. Repeat in AM Hold home agents SSI while in-patient BSG AC HS and Q6H while NPO Myasthenia gravis Continue Mestinon DVT Ppx:SCDs for now Code status: FULL PCP: Mariangel Dispo: Admitted to PCU Patient seen in collaboration with Dr. Erwin. Please see addendum. History of Present Illness Chief Complaint: urinary symptoms, back pain Primary Care Provider: Juan August MD This is a 81-year-old male with PMH of HTN, myasthenia gravis, atrial fibrillation not on anticoagulation due to h/o SAH, HLD, DM type II, MDD who presents with urinary retention over the past few weeks. Patient with lower bladder discomfort and would recently been evaluated by urology and started on trospium. Also endorsing left lower back pain extending into flank over the past few weeks as well. Woke today with worsening of urinary symptoms as well as shaking chills. Was brought to ED for further evaluation. Denies any fever, lightheadedness, chest pain, shortness of breath, palpitations, nausea, vomiting, dysuria, diarrhea or constipation. Allergies Allergy/AdvReac Type Severity Reaction Status Date / Time felodipine Allergy Intermediate hives Verified 10/20/22 16:29 flunisolide Allergy Unknown other Verified 10/20/22 16:29 gabapentin AdvReac Intermediate GI SYMPTOMS Verified 10/20/22 16:29 Thiazides AdvReac Intermediate CAUSED GOUT Verified 10/20/22 16:29 Home Medications Medication Instructions Recorded Confirmed Type cyanocobalamin (vitamin B-12) 1,000 mcg PO QAM 12/23/21 10/20/22 History 1,000 mcg tablet diclofenac sodium 1 % topical gel 2 g topical DIRECTED PRN Pain 12/23/21 10/20/22 History pravastatin 40 mg tablet 40 mg PO QAM 12/23/21 10/20/22 History pyridostigmine bromide 60 mg 30 mg PO TID 12/23/21 10/20/22 History tablet (Mestinon) acetaminophen 325 mg capsule 650 mg PO QID PRN Pain 01/21/22 10/20/22 History (Tylenol) losartan 50 mg tablet 50 mg PO DAILY 10/20/22 10/20/22 History trospium 20 mg tablet 20 mg PO DAILY 10/20/22 10/20/22 History Past Med/Surg History Medical History (Updated 10/20/22 @ 20:08 by Abiola Erwin, DO) Atrial fibrillation Benign tubular adenoma of large intestine DM II (diabetes mellitus, type II), controlled HLD (hyperlipidemia) HTN (hypertension) IBS (irritable bowel syndrome) MDD (major depressive disorder) Myasthenia gravis Surgical History History of vasectomy S/P cholecystectomy Family History Father Stroke Social History Smoking Status: Never smoker Hx Alcohol Use: No Hx Substance Use: No Preferred Language: Icelandic [employer] Teacher Required: No Beliefs That Will Affect Care: None marital status: Current Living Situation: Spouse current occupational status: retired Feels Safe at Home: Yes caffeine: Yes Assistive Devices: Cane Review of Systems Review of Systems: At least ten systems reviewed and negative except as noted in the HPI. Physical Exam Physical Exam: Please see Dr. Erwin's addendum for physical exam. Results & Data Results & Data ([facility]) Vital Signs (Past 12 Hours) Vital Signs Temp Pulse Pulse Resp BP BP Pulse Ox 10/20/22 18:16 83 18 88/47 L 96 10/20/22 17:22 89 18 94/54 L 98 10/20/22 15:52 100 10/20/22 14:50 37.3 C 114 H 22 97/47 L 100 O2 Del Method O2 Flow Rate 10/20/22 18:16 Nasal Cannula 2 10/20/22 17:22 Room Air 10/20/22 15:52 Nasal Cannula 2 10/20/22 14:50 Laboratory Results Short CBC 10/20/22 Range/Units 15:05 WBC 1.82 L (4.8-10.8) K/ul Hgb 12.8 L (14.0-18.0) g/dl Hct 41.1 (40.1-51.0) % Plt Count 142 (130-400) K/uL BMP 10/20/22 15:05 Sodium 144 Potassium 4.2 Chloride 111 H Carbon Dioxide 18 L BUN 26 H Creatinine 1.95 H Glucose 145 H Calcium 8.5 Liver Function 10/20/22 Range/Units 15:05 Total Bilirubin 1.1 H (0.2-1.0) mg/dl Direct Bilirubin 0.2 (0-0.2) mg/dl AST 21 (13-39) U/L ALT 6 L (7-52) U/L Alkaline Phosphatase 71 (34-104) U/L Albumin 3.5 (3.4-5.0) gm/dl Urine 10/20/22 Range/Units 16:26 Urine Color Yellow Urine Appearance Cloudy A (Clear) Urine pH 8.0 H (4.5-7.5) Ur Specific [place] 1.013 (1.000-1.030) Urine Protein 2+ H (Negative) Urine Glucose (UA) Negative (Negative) Diagnostic Findings Abdomen/Pelvis CT 10/20/22 14:52 CT OF THE ABDOMEN AND PELVIS WITHOUT CONTRAST CLINICAL HISTORY: Abdominal pain. Difficulty urinating. COMPARISON STUDY: No previous studies for comparison. TECHNIQUE: Axial images of the abdomen and pelvis were obtained without IV contrast. Images were reviewed in the axial, sagittal, and coronal planes. Automated exposure control was utilized for the study. A dose lowering technique was utilized adhering to the principles of ALARA. FINDINGS: Lung bases are unremarkable. Mild cardiomegaly is present. No pneumatosis, free air or portal venous gas. A 4 mm mid left ureteral calculus at the S1 level results in mild left hydronephrosis. Bilateral perinephric stranding is slightly greater than left. There is moderate renal atrophy. Numerous water attenuation bilateral renal lesions are suboptimally assessed on this unenhanced exam but favor cysts. There is also a 1.7 cm intermediate attenuation lesion within the posterior cortex of the midpole the right kidney on axial image 180 511. No additional urinary calculi are present. Prostate is enlarged, measuring 5 cm in transverse dimension. Bladder wall thickening is noted. This is accentuated by underdistention. There is adjacent stranding. Evaluation of the remainder of the abdomen and pelvis is suboptimal as unenhanced exam. Mild dilatation of the common bile duct is likely related to cholecystectomy. Liver, spleen, adrenal glands and pancreas are unremarkable. There is no lymphadenopathy. The appendix is normal. There is no evidence for a bowel obstruction. Colonic diverticulosis is present without evidence for acute diverticulitis. A fat and calcification containing peritoneal loose body is benign. Moderate amount of stool within the distal colon and rectum is present. No acute fracture within the visualized skeletal structures. IMPRESSION: 1. 4 mm mid left ureteral calculus which results in mild left hydronephrosis. No additional urinary calculi. 2. Bladder wall thickening with adjacent stranding which could be correlated with urinalysis to exclude cystitis. 3. 1.7 cm intermediate attenuation right renal lesion. This could reflect a complex cyst or small solid renal lesion. Nonemergent renal ultrasound is recommended. Additional bilateral water attenuation renal lesions favor cysts. 4. Moderate amount of stool within the distal colon and rectum. ACT 112: Negative or not required by law. Electronically signed by: Kiet Fabian M.D. 10/20/2022 5:22 PM Chest X-Ray 10/20/22 14:52 SINGLE VIEW CHEST CLINICAL HISTORY: Sepsis. Dyspnea and weakness. FINDINGS: An AP, portable, upright chest radiograph is compared to study dated 01/21/2022. The heart is enlarged noting atherosclerotic calcification of the thoracic aorta. The pulmonary vasculature is not congested. Chronic interstitial thickening similar to previous. There is mild bibasilar scarring/atelectasis. The lungs and pleural spaces are otherwise clear. No pneumothorax is seen. The skeletal structures are osteopenic. The bony thorax is grossly intact. Arthritic change is seen in the shoulders. IMPRESSION: Cardiomegaly with no active disease in the chest. ACT 112: Negative or not required by law. Electronically signed by: Gomez Aguirre M.D. 10/20/2022 3:10 PM Supervising Physician Co-Signing Physician Notes I have seen and examined the patient and have discussed the case with the provider above. I agree with the assessment and plan as stated. The patient is an 82 yo M presenting with severe sepsis 2/2 obstructing ureteral stone. He denies any acute pain at this time and reports it had historically been over his left flank, but also in his suprapubic region with radiation to his left flank. He denies any chest pain, SOB, or other issues at this time. Labwork up in the ER reveals evidence of leukopenia with neutropenia, INR of 1.2, sodium of 144, potassium 4.2, and anion gap metabolic acidosis with a CO2 of 18 and acute kidney injury with a BUN of 26 and a creatinine of 1.95, baseline creatinine is 1.0. Lactate is 4.7. Lipase was normal and procalcitonin was elevated indicative of sepsis. TSH was 6.6. Urine appears infected. Chest x-ray revealed no active disease. An abdomen pelvis CT without contrast revealed a 4 mm left ureteral calculus resulting in mild left hydronephrosis. Bladder thickening with adjacent stranding could be correlated with cystitis. There was also a 1.7 cm right renal lesion present with further imaging recommended. CONSTITUTIONAL: WNWD, vitals as above, generally well-appearing, NAD EYES: PERRL, ptosis of the right eye noted compared with the left. Normal conjunctivae, no scleral icterus ENT: external ear and nose normal, MMM NECK: trachea midline RESPIRATORY: clear to auscultation bilaterally, no crackles, rales or wheezes, normal respiratory effort CARDIOVASCULAR: regular rate and rhythm, S1 and 2 heard without murmurs, gallops or rubs, no JVD, no peripheral edema CHEST: inspection of chest was normal GASTROINTESTINAL: soft, RLQ and RUQ tenderness, ND no guarding. MUSCULOSKELETAL: strength 5/5 throughout, head is normocephalic and atraumatic SKIN: warm and dry, no rashes NEUROLOGIC: CN 2-12 grossly intact, no sensory deficit, normal cognition, lucio l speech, no tremor PSYCHIATRIC: alert cooperative and oriented to person, place and time. Euthymic mood, makes good eye contact, language grossly intact, recent and remote memory grossly intact. He was taken to the OR for left cystoscopy with stent placement for source control. Intraoperatively he received propofol and fentanyl and was completing his infusion of vancomycin. Several pushes of phenylephrine were given intraoperatively to maintain blood pressure and he would required a fluid bolus in the PACU during recovery. Overall this is an 82 yo myasthenia patient who presented in a state of severe sepsis 2/2 infected ureteral stone in the setting of acute renal failure. He remains febrile and hypotension and will be transitioned to the PCU unless his hypotension is refractory to fluid bolus, in which case ICU will be considered. This plan was discussed with the anesthesia actionscript developer, Dr. Nieto. DO Rip
[2022-10-20] MEDS ORDERED: fentaNYL citrate 100 MCG/2 ML VIAL IV PRN (18:24)
[2022-10-20] MEDS ORDERED: ATROPINE SULFATE 0.1 MG/ML 10ML SYR IV PRN (18:24)
[2022-10-20] MEDS ORDERED: PHENYLEPHRINE 100MCG/ML 5ML SYR IV PRN (18:24)
[2022-10-20] MEDS ORDERED: LABETALOL HCL IV 5 MG/ML 20ML IV PRN (18:24)
[2022-10-20] MEDS ORDERED: ePHEDrine sulfate 50 MG/ML AMP IV PRN (18:24)
[2022-10-20] MEDS ORDERED: ONDANSETRON INJ 2 MG/ML 2 ML VIAL IV PRN ×2 (18:24→21:23)
--- NOTE | 2022-10-20 18:56 | Urology Consultation ---
Date of Consultation October 20, 2022 Assessment & Plan (1) Complicated UTI (urinary tract infection): (2) Sepsis: (3) Obstructive uropathy: Plan We reviewed that he currently has a left-sided obstructing stone in the setting of urinary tract infection. He has been given antibiotics, but he should undergo left ureteral stent placement for source control. We discussed cystoscopy and stent placement on the left side. We reviewed risks and benefits including risk of bleeding, infection, injury to the urinary tract, inability to place stent. He expressed understanding and would like to proceed with surgery. History of Present Illness Reason for Consultation: Infected, obstructing ureteral stone Attending Physician: Luis Broussard MD History of Present Illness This is an 82-year-old male with prior history of nephrolithiasis who presented to the emergency department on 10/20/2022. He reported a couple weeks of left- sided flank pain but this had gotten much worse and was associated with new shaking chills. Work-up in the emergency department was notable for leukopenia and urinalysis suspicious for infection. He also had creatinine increased from baseline and elevated lactate. A CT scan was performed which I independently reviewed.Both kidneys are normal position although appears somewhat atrophic. There is hydronephrosis on the left side which extends down to a 4 mm stone in the mid ureter. There is left perinephric stranding. There are no obstructing stones on the right side. His bladder is decompressed. He has likely cystic lesions of the right kidney as well as some exophytic, more dense appearing lesions, measuring up to 1.7 cm on the right side. Allergies Allergy/AdvReac Type Severity Reaction Status Date / Time felodipine Allergy Intermediate hives Verified 10/20/22 16:29 flunisolide Allergy Unknown other Verified 10/20/22 16:29 gabapentin AdvReac Intermediate GI SYMPTOMS Verified 10/20/22 16:29 Thiazides AdvReac Intermediate CAUSED GOUT Verified 10/20/22 16:29 Home Medications Medication Instructions Recorded Confirmed Type cyanocobalamin (vitamin B-12) 1,000 mcg PO QAM 12/23/21 10/20/22 History 1,000 mcg tablet diclofenac sodium 1 % topical gel 2 g topical DIRECTED PRN Pain 12/23/21 10/20/22 History pravastatin 40 mg tablet 40 mg PO QAM 12/23/21 10/20/22 History pyridostigmine bromide 60 mg 30 mg PO TID 12/23/21 10/20/22 History tablet (Mestinon) acetaminophen 325 mg capsule 650 mg PO QID PRN Pain 01/21/22 10/20/22 History (Tylenol) losartan 50 mg tablet 50 mg PO DAILY 10/20/22 10/20/22 History trospium 20 mg tablet 20 mg PO DAILY 10/20/22 10/20/22 History Patient History Medical History (Updated 10/20/22 @ 18:51 by Riri Dixon PA-C) Atrial fibrillation Benign tubular adenoma of large intestine DM II (diabetes mellitus, type II), controlled HLD (hyperlipidemia) HTN (hypertension) IBS (irritable bowel syndrome) MDD (major depressive disorder) Myasthenia gravis Surgical History History of vasectomy S/P cholecystectomy Family History Father Stroke Social History Smoking Status: Never smoker Hx Alcohol Use: No Hx Substance Use: No Preferred Language: Argentine Patient Relations Representative Required: No Beliefs That Will Affect Care: None marital status: Current Living Situation: Spouse current occupational status: retired Feels Safe at Home: Yes caffeine: Yes Assistive Devices: Cane Review of Systems Review of Systems: 14 point review of systems negative except for otherwise indicated. Physical Exam Physical Exam: Frail-appearing Constitutional: no acute distress Eyes: + anicteric sclerae; pupils not irregular Respiratory: normal respiratory effort; no respiratory distress, does not use accessory muscles and no cough Cardiovascular: well perfused Gastrointestinal (Abdomen): Inspection/Auscultation: abdomen normal to inspection; abdomen not distended Musculoskeletal: Extremities: extremities normal to inspection Skin: normal turgor; no rashes and no lesions Neurologic: moves all extremities and awake Psychiatric: Orientation: alert and oriented x 3 Results & Data ([facility]) Vital Signs (Past 12 Hours) Vital Signs Temp Pulse Pulse Pulse Resp BP BP 10/20/22 18:30 37.6 C H 79 20 104/56 L 10/20/22 18:16 83 18 88/47 L 10/20/22 17:22 89 18 10/20/22 15:52 10/20/22 14:50 37.3 C 114 H 22 97/47 L BP Pulse Ox O2 Del Method O2 Flow Rate 10/20/22 18:30 96 Room Air 10/20/22 18:16 96 Nasal Cannula 2 10/20/22 17:22 94/54 L 98 Room Air 10/20/22 15:52 100 Nasal Cannula 2 10/20/22 14:50 100 PG Care Time/CCT Total # of Minutes Spent Total Time Spent with Patient: Total time spent is greater than 50% in coordination of care (as documented) at patient's floor/unit and/or counseling patient: Coding Level of Care Code 90679 Inpt Consult Level 4 Diagnoses Complicated UTI (urinary tract infection) N39.0 Sepsis A41.9 Obstructive uropathy N13.9
[2022-10-20] MEDS ORDERED: PHENYLEPHRINE 100MCG/ML 5ML SYR ONE (19:30)
[2022-10-20] MEDS ORDERED: DIATRIZOATE MEGLUMINE 30% 100ML VIAL INSTIL ONE (19:36)
--- NOTE | 2022-10-20 19:37 | Operative Report ---
PG Post Operative Report Pre & Post Diagnosis Operation Date: 10/20/22 19:00 Preop diagnosis: Left ureteral stone, UTI Postop diagnosis: Left ureteral stone, UTI I identified the patient and participated in the time-out.: Yes Procedure Operation Date: 10/20/22 19:00 Cystoscopy, left retrograde pyelogram, left ureteral stent placement Surgeon Luis Broussard MD Conductor Yard None Estimated Blood Loss 0 Findings Consistent with Post-Op Diagnosis Specimens None Drains 6 Tanzanian by 26 m double-J ureteral stent in the left ureter Anesthesia Type MAC Complications none Indications This is an 82-year-old male who presented to the emergency department with rigors and left flank pain. CT scan identified a left ureteral stone and labs were concerning for infection. He is brought to the OR for ureteral stent placement. Description of Procedure The patient was identified in the holding area and informed consent was confirmed. He was marked on the left side, then was taken to the operating room where anesthesia was initiated. He was placed in the dorsal lithotomy position with all pressure points appropriately padded. He was prepped and draped in the usual sterile fashion and a preoperative timeout was performed. A well-lubricated cystoscope was inserted per urethra and panendoscopy was performed. He had a phimotic foreskin. The pendulous urethra was normal with no strictures or mucosal abnormalities. The prostate was enlarged with a high bladder neck. Limited survey of the bladder identified no tumors or stones. Ureteral orifices were in orthotopic position. A 5 Tanzanian open-ended catheter was inserted and used to intubate the left ureteral orifice. A retrograde pyelogram was performed using Cystografin. The distal ureter was normal in course and caliber. There was hydronephrosis of the proximal ureter. The stone was not clearly visualized. A 0.038 inch zip wire was advanced up to the kidney under fluoroscopic guidance. Over the wire, a 6 Tanzanian x 26 cm double-J ureteral stent was advanced. When the wire was removed, there was a good curl in the kidney under fluoroscopic guidance. A curl was visualized in the bladder with the cystoscope. At this point the bladder was drained and all instrumentation was removed. The patient was then awakened from anesthesia and was brought to the PACU in stable condition. I attest to the content of the Intraoperative Record and any orders documented therein. Any exceptions are noted below.
--- NOTE | 2022-10-20 19:55 | Fluoroscopy Report ---
FL retrograde includes kub CLINICAL HISTORY: LEFT CYSTO/STENT COMPARISON STUDY: CT of the abdomen and pelvis performed earlier today. FLUOROSCOPY TIME: 6 seconds. FLUOROSCOPIC IMAGES: 3 FINDINGS: Fluoroscopy was provided during left retrograde exam with left ureteral stent insertion. Pr oximal aspect of the stent projects over the left renal collecting system. IMPRESSION: Fluoroscopy provided during left retrograde exam with left ureteral stent insertion. ACT 112: Negative or not required by law. Electronically signed by: Kiet Fabian M.D. 10/20/2022 7:54 PM
--- NOTE | 2022-10-20 19:55 | Anesthesiology Progress Note ---
Date of Service October 20, 2022 Anesthesia Post Procedure Vital Signs Vital Signs: Temp Pulse Pulse Pulse Resp BP BP 10/20/22 18:30 37.6 C H 79 20 104/56 L 10/20/22 18:16 83 18 88/47 L 10/20/22 17:22 89 18 10/20/22 15:52 10/20/22 14:50 37.3 C 114 H 22 97/47 L BP Pulse Ox O2 Del Method O2 Flow Rate 10/20/22 18:30 96 Room Air 10/20/22 18:16 96 Nasal Cannula 2 10/20/22 17:22 94/54 L 98 Room Air 10/20/22 15:52 100 Nasal Cannula 2 10/20/22 14:50 100 Pain Intensity Back: Pain Intensity: 5 Transfer of Care Handoff Completed per policy Notes Mental Status: alert / awake / arousable Patient Amnestic to Procedure: Yes Nausea / Vomiting: adequately controlled Pain: adequately controlled Airway Patency, RR, SpO2: stable & adequate BP & HR: stable & adequate and see Notes below Hydration State: stable & adequate Anesthetic Complications: no major complications apparent and Pt Satisfied with anesthetic care Notes: The patient is awake and comfortable. He is slightly hypotensive but is close to his preoperative baseline and has been receiving Vancomycin through his IV. His other vital signs are stable.
[2022-10-20] MEDS ORDERED: DICLOFENAC SOD 1% GEL 100 GM TUBE EXT PRN ×2 (21:23→21:51)
[2022-10-20] MEDS ORDERED: GLUCOSE 10 TAB/TUBE PO PRN (21:23)
[2022-10-20] MEDS ORDERED: GLUCAGON FOR INJ 1 MG VIAL SQ PRN (21:23)
[2022-10-20] MEDS ORDERED: CARBOHYDRATES FOR HYPOGLYCEMIA PO PRN (21:23)
[2022-10-20] MEDS ORDERED: DEXTROSE 50% 50 ML SYRINGE IV PRN (21:23)
[2022-10-20] MEDS ORDERED: GLUCOSE 40% GEL 15 GM TUBE PO PRN (21:23)
[2022-10-20] MEDS ORDERED: ACETAMINOPHEN 325 MG TAB PO PRN (21:42)
[2022-10-20] MEDS: INSULIN ASPART PER UNIT SC SCH (21:54)
[2022-10-20] MEDS: pyRIDostigmine bromide 60 MG TAB PO SCH (21:54)
[2022-10-20] MEDS ORDERED: LACTATED RINGER'S 1,000 ML IV ONE (22:36)
[2022-10-20] MEDS ORDERED: oxyCODONE HCL IR 5 MG TAB (IMMEDIATE RELEASE) PO PRN (23:28)
[2022-10-20] MEDS ORDERED: HYDROmorphone INJ 0.5 MG/0.5 ML SYR IV PRN (23:28)
[2022-10-21] MEDS ORDERED: oxyCODONE HCL IR 5 MG TAB (IMMEDIATE RELEASE) PO STA (00:53)
[2022-10-21] MEDS ORDERED: oxyCODONE HCL IR 5 MG TAB (IMMEDIATE RELEASE) PO PRN (00:53)
[2022-10-21 04:43] LABS: BUN Creatinine Ratio 13.3 (10-20); Calcium 7.5 mg/dl (8.5-10.1); Creatinine Clr Calc Pharmacy 30.8 ml/min; Est GFR (African American) 30.6 ml/min; Est GFR (Non-African American) 26.4 ml/min; Potassium 3.7 mmol/L (3.5-5.1)
[2022-10-21] MEDS ORDERED: LACTATED RINGER'S 1,000 ML IV ONE ×3 (05:04→22:02)
[2022-10-21 05:41] LABS: Hematocrit (blood only) 34.7 % (40.1-51.0); Hemoglobin 10.9 g/dl (14.0-18.0); Mean Corpuscular Hemoglobin 30.3 pg (25.0-34.0); Mean Corpuscular Hgb Conc 31.4 g/dL (32.0-36.0); Mean Corpuscular Volume 96.4 fL (80.0-100.0); Mean Platelet Volume 11.7 fL (9.4-12.4); Platelet Count 107 K/uL (130-400); Platelet Estimate Decreased (Normal); RDW Coefficient of Variation 14.6 % (11.5-14.5); RDW Standard Deviation 52.3 fL (36.4-46.3); White Blood Count 15.52 K/ul (4.8-10.8)
[2022-10-21 07:18] LABS: Estimated Average Glucose 126 mg/dl
[2022-10-21] MEDS: LACTATED RINGER'S 1,000 ML IV SCH ×2 (07:45→12:30)
[2022-10-21 07:49] LABS: A calco-baum cmplx NotReported Not Detected (NotDetected); Bact fragilis Not Reported Not Detected (NotDetected); C auris Not Reported Not Detected (NotDetected); CTX-M Resistant Gene Not Detected (NotDetected); Calbicans Not Reported Not Detected (NotDetected); Candida glabrata Not Reported Not Detected (NotDetected); Candida krusei Not Reported Not Detected (NotDetected); Cneoformans/gatti Not Reported Not Detected (NotDetected); Cparapsilosis Not Reported Not Detected (NotDetected); Ctropicalis Not Reported Not Detected (NotDetected); E cloacae compx Not Reported Not Detected (NotDetected); Efaecalis Not Reported Not Detected (NotDetected); Efaecium Not Reported Not Detected (NotDetected); Enterobacterales DETECTED (NotDetected); Enterobacterales Not Reported DETECTED (NotDetected); Escherichia coli Not Reported Not Detected (NotDetected); H influenzae Not Reported Not Detected (NotDetected); IMP Resistant Gene Not Detected (NotDetected); K aerogenes Not Reported Not Detected (NotDetected); KPC Resistant Gene Not Detected (NotDetected); Koxytoca Not Reported Not Detected (NotDetected); Kpneumoniae grp Not Reported Not Detected (NotDetected); Lmonocyt Not Reported Not Detected (NotDetected); N meningitidis Not Reported Not Detected (NotDetected); NDM Resistant Gene Not Detected (NotDetected); OXA 48 Like Resistant Gene Not Detected (NotDetected); P aeruginosa Not Reported Not Detected (NotDetected); Proteus spp Not Reported DETECTED (NotDetected); Salmonella spp Not Reported Not Detected (NotDetected); Smarcescens Not Reported Not Detected (NotDetected); Staph lugdunensis Not Reported Not Detected (NotDetected); Staph spp. Not Reported Not Detected (NotDetected); Staphaureus Not Reported Not Detected (NotDetected); Staphepi Not Reported Not Detected (NotDetected); Stenmaltophilia Not Reported Not Detected (NotDetected); Strep agal(GrpB) Not Reported Not Detected (NotDetected); Strep pneum Not Reported Not Detected (NotDetected); Strep pyog (GrpA) Not Reported Not Detected (NotDetected); Strep spp Not Reported Not Detected (NotDetected); VIM Resistant Gene Not Detected (NotDetected)
[2022-10-21 08:16] LABS: Proteus species DETECTED (NotDetected)
[2022-10-21] MEDS: INSULIN ASPART PER UNIT SC SCH ×4 (08:40→20:25)
[2022-10-21] MEDS: pyRIDostigmine bromide 60 MG TAB PO SCH ×3 (08:47→19:48)
[2022-10-21] MEDS: PRAVASTATIN SOD 40 MG TAB PO SCH (08:48)
[2022-10-21] MEDS: CYANOCOBALAMIN (B-12) 500 MCG TABLET PO SCH (08:48)
[2022-10-21 08:52] LABS: Creatinine Clr Calc Pharmacy 28.3 ml/min; Est GFR (African American) 27.6 ml/min; Est GFR (Non-African American) 23.8 ml/min
[2022-10-21] MEDS ORDERED: CEFEPIME 2,000 MG in SYRINGE 0 ML IV SCH ×2 (09:00→17:00)
--- NOTE | 2022-10-21 09:11 | Electrocardiogram Report ---
Test Reason : Blood Pressure : / mmHG Vent. Rate : 115 BPM Atrial Rate : 115 BPM P-R Int : 136 ms QRS Dur : 082 ms QT Int : 344 ms P-R-T Axes : 063 -56 057 degrees QTc Int : 475 ms Poor data quality, interpretation may be adversely affected Sinus tachycardia Left axis deviation Abnormal ECG When compared with ECG of 25-JAN-2022 10:12, Vent. rate has increased BY 56 BPM Confirmed by Hua Abbott ([id number]) on 10/21/2022 9:11:42 AM Referred By: REFERRED SELF Confirmed By:Hua Abbott
--- NOTE | 2022-10-21 10:15 | Urology Progress Note ---
Date of Service October 21, 2022 Assessment & Plan (1) Complicated UTI (urinary tract infection): (2) Obstructive uropathy: (3) SHWETA (acute kidney injury): Plan 82yo M admitted with left ureteral stone and concern for infection. - POD #1 s/p cystoscopy and left ureteral stent placement. - Remains afebrile. - Labs reviewed- Wbc up to 15.52 and Creatinine 2.46 today. Continue to trend. - Urine and blood cultures preliminary with gram-negative bacilli. - Should have good source control and drainage with ureteral stent and Che catheter in place. - Continue supportive care and antibiotic therapy, follow cultures. - Maintain Che catheter. - Urology will follow. Admission and Anticipated Discharge Date Admission Date: October 20, 2022 Subjective Patient examined at bedside this AM. Awake, resting bed on arrival. No acute distress. Reports left lower back pain. Denies abdominal, flank, suprapubic pain. Denies fevers or chills. No nausea or vomiting today. Che catheter intact, draining cloudy dark yellow/rey colored urine. Review of Systems Constitutional: as per Subjective / HPI Gastrointestinal: as per Subjective / HPI Genitourinary: + as per Subjective / HPI Physical Exam Constitutional: no acute distress Respiratory: no respiratory distress and no labored breathing Gastrointestinal (Abdomen): Percussion/Palpation: abdomen soft; abdomen nontender Neurologic: awake Psychiatric: Orientation: alert and oriented x 3 Genitourinary: Che catheter intact Results & Data ([facility]) Vital Signs (Past 12 Hours) Vital Signs Temp Pulse Pulse Pulse Resp BP BP 10/21/22 07:59 36.8 C 76 20 91/54 L 10/21/22 04:09 86 18 130/64 10/21/22 02:51 36.4 C L 81 18 91/49 L 10/21/22 01:29 36.7 C 86 20 127/60 10/21/22 00:51 78 18 84/40 L 10/20/22 23:47 78 10/20/22 23:23 36.9 C 78 18 89/45 L 10/20/22 23:04 36.4 C L 81 18 91/49 L Pulse Ox O2 Del Method O2 Flow Rate 10/21/22 07:59 98 Nasal Cannula 4 10/21/22 04:09 94 Nasal Cannula 2 10/21/22 02:51 91 Nasal Cannula 2 10/21/22 01:29 92 Nasal Cannula 2 10/21/22 00:51 10/20/22 23:47 10/20/22 23:23 93 Nasal Cannula 2 10/20/22 23:04 91 Nasal Cannula 2 PG Care Time/CCT Total # of Minutes Spent Total Time Spent with Patient: Total time spent is greater than 50% in coordination of care (as documented) at patient's floor/unit and/or counseling patient: Coding Level of Care Code 44666 Subseq Hosp Care Lvl 2 Diagnoses Complicated UTI (urinary tract infection) N39.0 Obstructive uropathy N13.9 SHWETA (acute kidney injury) N17.9
[2022-10-21] MEDS ORDERED: cefTRIAXone SODIUM 2,000 MG in DEXTROSE 5% 50 ML IV SCH (11:00)
[2022-10-21 11:55] LABS: Calcium 7.8 mg/dl (8.5-10.1); Creatinine Clr Calc Pharmacy 27.5 ml/min; Est GFR (African American) 26.7 ml/min; Potassium 4.8 mmol/L (3.5-5.1)
--- NOTE | 2022-10-21 16:53 | Hospitalist Progress Note ---
Date of Service October 21, 2022 Assessment & Plan (1) Sepsis: (2) Complicated UTI (urinary tract infection): (3) Obstructive uropathy: (4) HTN (hypertension): (5) Atrial fibrillation: (6) History of subarachnoid hemorrhage: (7) DM II (diabetes mellitus, type II), controlled: (8) Myasthenia gravis: (9) MDD (major depressive disorder): (10) HLD (hyperlipidemia): (11) SHWETA (acute kidney injury): Plan This is a 81-year-old male with PMH of HTN, myasthenia gravis, atrial fi brillation not on anticoagulation due to h/o SAH, HLD, DM type II, MDD who presents with urinary retention over the past few weeks and was found to have sepsis 2/2 obstructive uropathy and complicated UTI. Sepsis Obstructive uropathy Complicated UTI Bacteremia Met sepsis criteria on admission with tachycardia, fever with elevated lactate 4.7, procalcitonin 9 Blood cx and urine cx grew gram negative bacilli WBC increased 15k and lactate 2.[address] abdomen pelvis with 4 mm mid left ureteral calculus, resulting in mild left hydronephrosis Urology on board S/P day #1 cystoscopy and left ureteral stent placement. Received IV cefepime and vanco in the ER Will discontinue IV vanco ID on board recommended to continue cefepime with renal dose Will repeat blood cx Continue monitor lactate and WBC SHWETA Creatinine increased to 2.5 Continue IVF Will avoid nephrotoxic agents Continue to hold Losartan Continue monitor BMP If creatinine worsening, consider nephrology consult Right renal lesion on CT Incidental finding of.7 cm intermediate attenuation right renal lesion. This could reflect a complex cyst or small solid renal lesion. will need nonemergent renal ultrasound is recommended HTN Hold losartan for now HLD (hyperlipidemia) Continue Pravastatin DM II (diabetes mellitus, type II) Recent A1c 6.0 on 10/20/22 Continue to hold home agents SSI while in-patient Continue monitor BS Myasthenia gravis Continue Mestinon DVT Ppx SCDs for now due to recent urology procedure Code status: FULL Disposition will discharge once medically stable Admission and Anticipated Discharge Date Admission Date: October 20, 2022 Subjective Pt was seen and examined for follow up Lying in bed with no acute distress Pt said that he feels ok Denies any chest pain, palpitation, dizziness and SOB Review of Systems Review of Systems: All systems reviewed & are unremarkable except as noted in Subjective Physical Exam Physical Exam: General- No acute distress Head- atraumatic Eyes- PERRL, EOMI, ENT- oropharynx clear Neck- supple, no JVD Lungs- +diminished breath sound Heart- regular rhythm; no murmur Abdomen- normal bowel sounds, soft, nontender Extremities- no calf tenderness Neuro- alert, oriented x 3; PERRL, EOMI; no facial palsy; no dysarthria Skin- warm & dry Results & Data Results & Data ([facility]) Vital Signs (Past 12 Hours) Vital Signs Temp Pulse Pulse Resp BP Pulse Ox O2 Del Method 10/21/22 16:33 37.0 C 80 20 103/56 L 97 Nasal Cannula 10/21/22 14:28 37.4 C 75 15 93/50 L 95 Nasal Cannula 10/21/22 08:00 Nasal Cannula 10/21/22 08:00 79 10/21/22 07:59 36.8 C 76 20 91/54 L 98 Nasal Cannula O2 Flow Rate 10/21/22 16:33 2 10/21/22 14:28 2 10/21/22 08:00 2 10/21/22 08:00 10/21/22 07:59 4
[2022-10-21] MEDS: CEFEPIME 1,000 MG in SYRINGE 0 ML IV SCH (19:47)
[2022-10-21] MEDS ORDERED: LACTATED RINGER'S 2,000 ML IV ONE (22:32)
[2022-10-22] MEDS: INSULIN ASPART PER UNIT SC SCH ×2 (08:08→12:51)
[2022-10-22 08:09] LABS: Hematocrit (blood only) 32.1 % (40.1-51.0); Hemoglobin 10.1 g/dl (14.0-18.0); Mean Corpuscular Hemoglobin 30.1 pg (25.0-34.0); Mean Corpuscular Hgb Conc 31.5 g/dL (32.0-36.0); Mean Corpuscular Volume 95.5 fL (80.0-100.0); Mean Platelet Volume 12.1 fL (9.4-12.4); Platelet Count 98 K/uL (130-400); RDW Coefficient of Variation 14.9 % (11.5-14.5); RDW Standard Deviation 51.8 fL (36.4-46.3); Red Blood Count 3.36 M/uL (4.63-6.08); White Blood Count 17.48 K/ul (4.8-10.8)
[2022-10-22] MEDS: CEFEPIME 1,000 MG in SYRINGE 0 ML IV SCH (08:14)
[2022-10-22] MEDS: pyRIDostigmine bromide 60 MG TAB PO SCH ×3 (08:14→20:51)
[2022-10-22] MEDS: CYANOCOBALAMIN (B-12) 500 MCG TABLET PO SCH (08:15)
[2022-10-22] MEDS: PRAVASTATIN SOD 40 MG TAB PO SCH ×2 (08:18→20:51)
[2022-10-22] MEDS ORDERED: Nursing to Pharmacy Communication SCH (08:30)
[2022-10-22 08:34] LABS: BUN Creatinine Ratio 19.1 (10-20); Calcium 7.6 mg/dl (8.5-10.1); Est GFR (African American) 36.8 ml/min; Est GFR (Non-African American) 31.8 ml/min
--- NOTE | 2022-10-22 08:51 | Urology Progress Note ---
Date of Service October 22, 2022 Assessment & Plan (1) Complicated UTI (urinary tract infection): (2) SHWETA (acute kidney injury): (3) Obstructive uropathy: Plan 82yo M admitted with left ureteral stone and concern for infection. - POD #2 s/p cystoscopy and left ureteral stent placement. - Remains afebrile. - Labs reviewed-White blood cell count still rising, not entirely unsuspected given patient's clinical picture. Creatinine is improving. No further intervention at this time. -Urine culture growing Proteus, blood cultures growing gram-negative bacilli. Currently on cefepime, which the Proteus is susceptible to - Should have good source control and drainage with ureteral stent and Che catheter in place. - Continue supportive care and antibiotic therapy, follow cultures. - Maintain Che catheter. If leukocytosis downtrends tomorrow morning, fine to remove catheter. - Urology will follow peripherally. Admission and Anticipated Discharge Date Admission Date: October 20, 2022 Subjective No acute issues overnight. Afebrile, nontachycardic. Several blood pressures in the 90s systolic. Urine output 0.42 ml/kg/hr. labs show leukocytosis slightly increased from 15.5-7.4. Hemoglobin stable. Creatinine downtrending from 2.53-1.94. Lactate downtrending from 2.5-1.6. Urine culture growing Proteus and blood cultures with gram-negative bacilli. Currently on cefepime. Subjectively reports feeling better today. Review of Systems Review of Systems: 14 point review of systems negative outside of what is listed above in HPI Physical Exam Physical Exam: General: Alert and oriented, no acute distress HEENT: Normocephalic, mucous membranes moist Pulmonary: Nonlabored respirations Abdomen: Nondistended Extremities: Moves all 4 spontaneously Neuro: No gross deficits Skin: Warm, dry, no rashes noted Results & Data ([facility]) Vital Signs (Past 12 Hours) Vital Signs Temp Pulse Pulse Resp BP BP Pulse Ox 10/22/22 08:25 18 95 10/22/22 07:20 10/22/22 07:18 36.7 C 75 18 101/59 L 95 10/22/22 04:04 36.6 C 71 16 99/60 L 93 10/21/22 22:52 36.6 C 69 16 92/49 L 95 10/21/22 23:02 70 O2 Del Method O2 Flow Rate 10/22/22 08:25 Room Air 10/22/22 07:20 Nasal Cannula 2 10/22/22 07:18 Nasal Cannula 2 10/22/22 04:04 Nasal Cannula 2.0 10/21/22 22:52 Nasal Cannula 2.0 10/21/22 23:02 PG Care Time/CCT Total # of Minutes Spent Total Time Spent with Patient: Total time spent is greater than 50% in coordination of care (as documented) at patient's floor/unit and/or counseling patient: Coding Level of Care Code 27480 Subseq Hosp Care Lvl 2 Diagnoses Complicated UTI (urinary tract infection) N39.0 SHWETA (acute kidney injury) N17.9 Obstructive uropathy N13.9
--- NOTE | 2022-10-22 11:36 | Hospitalist Progress Note ---
Date of Service October 22, 2022 Assessment & Plan (1) Sepsis: Plan: Resuscitated and BP is more improved today. Would avoid IVF at this time and continue to encourage PO intake. (2) Gram-negative bacteremia: Plan: Likely proteus from infected ureteral stone, however, cultures are still pending speciation. ID consulted. Cont current antibiotics. (3) Complicated UTI (urinary tract infection): Plan: Infected left ureteral stone, with stent in place. Bacteremia present, awaiting speciation. Proteus growing in urine. Continues on cefepime at this time. (4) Obstructive uropathy: Plan: Received left ureteral stent on 10/20. denies stent pain at this time. Urology following. Cont Che for now pending resolution of leukocytosis. (5) Acute kidney failure: Plan: Likely related to sepsis and possibly with ATN creatinine has plateaued. Cont to avoid nephrotoxic substances including contrast, and renally dose medications as needed. Trend BMP daily. If not improved, consider nephrology consultation. (6) HTN (hypertension): Plan: Reccently hypotensive so home antihypertensives are on hold. (7) Atrial fibrillation: Plan: currently in sinus rhythm and not on AC 2/2 h/o SAH. (8) History of subarachnoid hemorrhage: (9) DM II (diabetes mellitus, type II), controlled: Plan: appears to be diet controlled. Inpatient glucose is controlled and he is consistently not requiring insulin. Will stop BSG checks and insulin now. (10) Myasthenia gravis: Plan: Appears generally weak but not in crisis. 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 He notes that his dose of Mestinon is supposed to be 60mg TID. This was adjusted. Unable to confirm this with the [place] pharmacy where he fills given it is closed over the weekend. (11) HLD (hyperlipidemia): Plan: chronic, at goal. Cont pravastatin per home regimen. (12) Kidney lesion: Plan: Right renal lesion on CT Incidental finding of.7 cm intermediate attenuation right renal lesion. This could reflect a complex cyst or small solid renal lesion. will need nonemergent renal ultrasound is recommended DVT proph: Lovenox Full Code Dispo-cont PCU for one more day given recent hypotension just yesterday. Patient needs to move around as much as possible as he is very deconditioned physically and PT/OT ordered. Abiola Erwin DO [facility] Hospitalist Admission and Anticipated Discharge Date Admission Date: October 20, 2022 Subjective 82-year-old man presenting with severe sepsis secondary to obstructing ureteral stone. He underwent cystoscopy on 03/20 with insertion of left ureteral stent. He subsequently had some postoperative stent pain and received narcotics causing transient confusion. Blood pressure was low yesterday and he required some intermittent intravenous fluid resuscitation. Today his blood pressure is improved to 135/66 but he is still 93% on 2 L nasal cannula. He is not working to breathe and denies any chest pain. He reports some residual left flank pain that is present but much improved since admission. He has myasthenia and tells me that his Mestinon dose should be 60 mg 3 times daily, currently it is only dosed 30 mg 3 times daily. He has chronic double vision which is still present. Right eye ptosis is notable. He is not overtly weak but has some difficulty moving independently in the bed. He is resistant to physical and Occupational Therapy stating "I do not believe in it." We discussed the importance of him getting out of bed both to ensure he does not decondition and also to help him move his bowels. He again appears slightly resistant and states that various staff have told him to stay in bed. We discussed that that would be to his detriment and he verbalized understanding. Che catheter is intact and per urology we will keep this for at least 1 more day pending clinical improvement. Patient reports a history of urinary incontinence and recently took a medication that may have been contraindicated in myasthenia. He sees a [place] urologist and it is therefore not clear which medicine he is describing. Review of Systems Review of Systems: All systems reviewed negative such as indicated above Physical Exam Physical Exam: CONSTITUTIONAL: WNWD, vitals as above, generally appears fatigued EYES: normal conjunctivae, no scleral icterus, right eye ptosis noted at rest and he can elevate eyelid fully when asked ENT: external ear and nose normal, poor dentition, MMM NECK: trachea midline RESPIRATORY: clear to auscultation bilaterally, no crackles, rales or wheezes, normal respiratory effort CARDIOVASCULAR: regular rate and rhythm, S1 and 2 heard without murmurs, gallops or rubs, no JVD, no peripheral edema CHEST: inspection of chest was normal GASTROINTESTINAL: protuberant abdomen, soft, nontender, ND, no guarding : Che in place draining yellow urine. MUSCULOSKELETAL: strength 5/5 throughout, however, he has difficulty sitting up in bed independently, head is normocephalic and atraumatic SKIN: warm and dry NEUROLOGIC: CN 2-12 grossly intact, no sensory deficit, normal cognition, normal speech, no tremor PSYCHIATRIC: alert cooperative and oriented to person, place and time. Results & Data Results & Data ([facility]) Vital Signs (Past 12 Hours) Vital Signs Temp Pulse Resp BP BP Pulse Ox O2 Del Method 10/22/22 11:26 37.2 C 76 15 135/66 93 Nasal Cannula 10/22/22 08:25 18 95 Room Air 10/22/22 07:20 Nasal Cannula 10/22/22 07:18 36.7 C 75 18 101/59 L 95 Nasal Cannula 10/22/22 04:04 36.6 C 71 16 99/60 L 93 Nasal Cannula O2 Flow Rate 10/22/22 11:26 2 10/22/22 08:25 10/22/22 07:20 2 10/22/22 07:18 2 10/22/22 04:04 2.0 Laboratory Results Short CBC 10/22/22 Range/Units 07:09 WBC 17.48 H (4.8-10.8) K/ul Hgb 10.1 L (14.0-18.0) g/dl Hct 32.1 L (40.1-51.0) % Plt Count 98 L (130-400) K/uL BMP 10/22/22 07:09 Sodium 141 Potassium 4.0 Chloride 113 H Carbon Dioxide 20 L BUN 37 H Creatinine 1.94 H D Glucose 81 Calcium 7.6 L Medications Administered Current Inpatient Medications Acetaminophen (Acetaminophen 325 Mg Tab) 650 mg PO Q4H PRN PRN Reason: Pain or Fever Stop: 11/19/22 21:22 Cyanocobalamin (Cyanocobalamin (B-12) 500 Mcg Tablet) 1,000 mcg PO QAM ON LICENSE OF [facility] Stop: 11/20/22 08:59 Last Admin: 10/22/22 08:15 Dose: 1,000 mcg Dextrose (Dextrose 50% 50 Ml Syringe) 25 - 50 ml IV UD PRN; Protocol PRN Reason: Hypoglycemia Protocol Stop: 11/19/22 21:22 Diclofenac Sodium (Diclofenac Sod 1% Gel 100 Gm Tube) 2 gm EXT QID PRN; Protocol PRN Reason: elbow pain Stop: 11/19/22 21:22 Glucagon (Glucagon For Inj 1 Mg Vial) 1 mg SQ UD PRN; Protocol PRN Reason: Hypoglycemia Protocol Stop: 11/19/22 21:22 Glucose (Glucose 40% Gel 15 Gm Tube) 15 - 30 gm PO UD PRN; Protocol PRN Reason: Hypoglycemia Protocol Stop: 11/19/22 21:22 Glucose (Glucose 10 Tab/Tube) 4 - 8 tab PO UD PRN; Protocol PRN Reason: Hypoglycemia Treatment Stop: 11/19/22 21:22 Hydromorphone HCl (Hydromorphone Inj 0.5 Mg/0.5 Ml Syr) 0.25 mg IV Q6H PRN PRN Reason: Pain Stop: 11/03/22 23:27 Lactated Ringer's (Lr) 2,000 mls @ 70 mls/hr IV .Q24H ONE Stop: 10/22/22 13:44 Last Infusion: 10/22/22 12:51 Dose: Infused Cefepime HCl 2,000 mg/ Syringe 20 mls @ 5 mls/min IV Q12H NAREN; Protocol Stop: 11/04/22 20:59 Insulin Aspart (Insulin Aspart Per Unit) 0 units SC ACHS NAREN Stop: 11/19/22 21:22 Last Admin: 10/22/22 08:08 Dose: Not Given Miscellaneous (Carbohydrates For Hypoglycemia ) 15 - 30 gm PO UD PRN PRN Reason: Hypoglycemia Protocol Stop: 11/19/22 21:22 Ondansetron HCl (Ondansetron Inj 2 Mg/Ml 2 Ml Vial) 4 mg IV Q6H PRN PRN Reason: Nausea Stop: 11/19/22 21:22 Last Admin: 10/22/22 04:09 Dose: 4 mg Oxycodone HCl (Oxycodone Hcl Ir 5 Mg Tab (Immediate Release)) 5 - 10 mg PO QID PRN PRN Reason: Pain Stop: 11/04/22 00:52 Pravastatin Sodium (Pravastatin Sod 40 Mg Tab) 40 mg PO QPM NAREN Stop: 11/21/22 20:59 Pyridostigmine [place] (Pyridostigmine Enloe 60 Mg Tab) 30 mg PO TID NAREN Stop: 11/19/22 21:29 Last Admin: 10/22/22 08:14 Dose: 30 mg
[2022-10-22] MEDS: ENOXAPARIN INJ 40 MG/0.4 ML SYR SQ SCH (14:12)
[2022-10-22] MEDS: ACETAMINOPHEN 325 MG TAB PO PRN (20:49)
[2022-10-22] MEDS: CEFEPIME 2,000 MG in SYRINGE 0 ML IV SCH (20:50)
[2022-10-23 07:22] LABS: BUN Creatinine Ratio 28.3 (10-20); Est GFR (African American) 61.4 ml/min; Potassium 4.3 mmol/L (3.5-5.1)
[2022-10-23 07:29] LABS: Hematocrit (blood only) 33.3 % (40.1-51.0); Hemoglobin 10.8 g/dl (14.0-18.0); Mean Corpuscular Hemoglobin 30.3 pg (25.0-34.0); Mean Corpuscular Hgb Conc 32.4 g/dL (32.0-36.0); Mean Corpuscular Volume 93.5 fL (80.0-100.0); Mean Platelet Volume 12.6 fL (9.4-12.4); Platelet Count 101 K/uL (130-400); RDW Coefficient of Variation 14.6 % (11.5-14.5); RDW Standard Deviation 50.7 fL (36.4-46.3); Red Blood Count 3.56 M/uL (4.63-6.08); White Blood Count 20.83 K/ul (4.8-10.8)
[2022-10-23] MEDS: ACETAMINOPHEN 325 MG TAB PO PRN (07:57)
[2022-10-23] MEDS: CEFEPIME 2,000 MG in SYRINGE 0 ML IV SCH ×2 (07:57→20:12)
[2022-10-23] MEDS: CYANOCOBALAMIN (B-12) 500 MCG TABLET PO SCH (07:57)
[2022-10-23] MEDS: pyRIDostigmine bromide 60 MG TAB PO SCH ×3 (07:58→20:14)
--- NOTE | 2022-10-23 13:16 | Hospitalist Progress Note ---
Date of Service October 23, 2022 Assessment & Plan (1) Sepsis: Plan: Resuscitated and BP is stable. Would avoid IVF at this time and continue to encourage PO intake. (2) Gram-negative bacteremia: Plan: Proteus bacteremia from urine source. ID consulted. Cont current antibiotics pending recs. (3) Complicated UTI (urinary tract infection): Plan: Infected left ureteral stone, with stent in place. Bacteremia present, Continues on cefepime at this time. Definitive stone therapy per urology as outpatient. (4) Obstructive uropathy: Plan: Received left ureteral stent on 10/20. reporting some stent pain at this time. Will schedule Pyridium and Tylenol for now. Urology following. Cont Che for now pending resolution of leukocytosis. (5) Acute kidney failure: Plan: Likely related to sepsis and possibly with ATN creatinine has improved today with stent in place. Cont to avoid nephrotoxic substances including contrast, and renally dose medications as needed. Trend BMP daily. (6) HTN (hypertension): Plan: Reccently hypotensive so home antihypertensives are on hold. (7) Atrial fibrillation: Plan: currently in sinus rhythm and not on AC 2/2 h/o SAH. (8) History of subarachnoid hemorrhage: (9) DM II (diabetes mellitus, type II), controlled: Plan: appears to be diet controlled. Inpatient glucose is controlled and he is consistently not requiring insulin. Will stop BSG checks and insulin now. (10) Myasthenia gravis: Plan: Brighter and reports feeling stronger/at his baseline with the increased dose of Mestinon. Cont this. (11) HLD (hyperlipidemia): Plan: chronic, at goal. Cont pravastatin per home regimen. (12) Kidney lesion: Plan: Right renal lesion on CT Incidental finding of.7 cm intermediate attenuation right renal lesion. This cou ld reflect a complex cyst or small solid renal lesion. will need nonemergent renal ultrasound is recommended DVT proph: Lovenox Full Code Dispo-cont PCU for one more day given recent hypotension just yesterday. Patient needs to move around as much as possible as he is very deconditioned physically and PT/OT ordered. Abiola Erwin DO [facility] Hospitalist Admission and Anticipated Discharge Date Admission Date: October 20, 2022 Subjective 82-year-old man presenting with severe sepsis secondary to obstructing ureteral stone. He underwent cystoscopy on 03/20 with insertion of left ureteral stent. He subsequently had some postoperative stent pain and received narcotics causing transient confusion. Blood pressure was low yesterday and he required some intermittent intravenous fluid resuscitation. He is feeling brighter and stronger with the increased Mestinon Ambulated 100ft in the hallway and per PT he can return home when medically cleared creatinine improved today but not quite back to baseline. He still reports flank pain but had no TTP when I palpated. We discussed options for medications to control discomfort including Pyridium, Ditropan and B&O suppository as well as Motrin and oxycodone. Daughter was present and all questions were addressed. Review of Systems Review of Systems: All systems reviewed negative such as indicated above Physical Exam Physical Exam: CONSTITUTIONAL: WNWD, vitals as above, generally appears fatigued EYES: normal conjunctivae, no scleral icterus, right eye ptosis improved. ENT: external ear and nose normal, poor dentition, MMM NECK: trachea midline RESPIRATORY: clear to auscultation bilaterally, no crackles, rales or wheezes, normal respiratory effort CARDIOVASCULAR: regular rate and rhythm, S1 and 2 heard without murmurs, gallops or rubs, no JVD, no peripheral edema CHEST: inspection of chest was normal GASTROINTESTINAL: protuberant abdomen, soft, nontender, ND, no guarding, No cva tenderness to palpation. : Che in place draining yellow urine. MUSCULOSKELETAL: strength 5/5 throughout, however, he has difficulty sitting up in bed independently, head is normocephalic and atraumatic SKIN: warm and dry NEUROLOGIC: CN 2-12 grossly intact, no sensory deficit, normal cognition, normal speech, no tremor PSYCHIATRIC: alert cooperative and oriented to person, place and time. Results & Data Results & Data ([facility]) Vital Signs (Past 12 Hours) Vital Signs Temp Pulse Pulse Resp BP BP Pulse Ox 10/23/22 12:15 36.7 C 64 17 106/66 95 10/23/22 03:13 36.5 C 58 L 93/53 L 96 O2 Del Method 10/23/22 12:15 Room Air 10/23/22 03:13 Room Air Laboratory Results Short CBC 10/23/22 Range/Units 05:48 WBC 20.83 H (4.8-10.8) K/ul Hgb 10.8 L (14.0-18.0) g/dl Hct 33.3 L (40.1-51.0) % Plt Count 101 L (130-400) K/uL [facility] 10/23/22 05:48 Sodium 140 Potassium 4.3 Chloride 113 H Carbon Dioxide 22 BUN 36 H Creatinine 1.27 D Glucose 78 Calcium 8.0 L Medications Administered Current Inpatient Medications Acetaminophen (Acetaminophen 325 Mg Tab) 650 mg PO Q4H PRN PRN Reason: Pain or Fever Stop: 11/19/22 21:22 Last Admin: 10/23/22 07:57 Dose: 650 mg Cyanocobalamin (Cyanocobalamin (B-12) 500 Mcg Tablet) 1,000 mcg PO QAM [facility] Stop: 11/20/22 08:59 Last Admin: 10/23/22 07:57 Dose: 1,000 mcg Diclofenac Sodium (Diclofenac Sod 1% Gel 100 Gm Tube) 2 gm EXT QID PRN; Protocol PRN Reason: elbow pain Stop: 11/19/22 21:22 Enoxaparin Sodium (Enoxaparin Inj 40 Mg/0.4 Ml Syr) 40 mg SQ Q24H NAREN Stop: 11/21/22 13:59 Last Admin: 10/22/22 14:12 Dose: 40 mg Cefepime HCl 2,000 mg/ Syringe 20 mls @ 5 mls/min IV Q12H NAREN; Protocol Stop: 11/04/22 20:59 Last Admin: 10/23/22 07:57 Dose: 5 mls/min Ondansetron HCl (Ondansetron Inj 2 Mg/Ml 2 Ml Vial) 4 mg IV Q6H PRN PRN Reason: Nausea Stop: 11/19/22 21:22 Last Admin: 10/22/22 04:09 Dose: 4 mg Oxycodone HCl (Oxycodone Hcl Ir 5 Mg Tab (Immediate Release)) 5 - 10 mg PO QID PRN PRN Reason: Pain Stop: 11/04/22 00:52 Last Admin: 10/22/22 20:49 Dose: 5 mg Pravastatin Sodium (Pravastatin Sod 40 Mg Tab) 40 mg PO QPM [facility] Stop: 11/21/22 20:59 Last Admin: 10/22/22 20:51 Dose: 40 mg Pyridostigmine [place] (Pyridostigmine [place] 60 Mg Tab) 60 mg PO TID [facility] Stop: 11/21/22 13:59 Last Admin: 10/23/22 07:58 Dose: 60 mg
[2022-10-23] MEDS: ENOXAPARIN INJ 40 MG/0.4 ML SYR SQ SCH (14:08)
[2022-10-23] MEDS: ACETAMINOPHEN 500 MG TAB PO SCH (18:16)
[2022-10-23] MEDS: PRAVASTATIN SOD 40 MG TAB PO SCH (20:13)
[2022-10-23] MEDS: PHENAZOPYRIDINE HCL 200 MG TAB PO SCH (20:13)
[2022-10-24] MEDS: ACETAMINOPHEN 500 MG TAB PO SCH ×2 (05:27→13:49)
[2022-10-24] MEDS: CYANOCOBALAMIN (B-12) 500 MCG TABLET PO SCH (08:20)
[2022-10-24] MEDS: PHENAZOPYRIDINE HCL 200 MG TAB PO SCH ×2 (08:20→13:49)
[2022-10-24] MEDS: CEFEPIME 2,000 MG in SYRINGE 0 ML IV SCH (08:20)
[2022-10-24] MEDS: pyRIDostigmine bromide 60 MG TAB PO SCH ×2 (08:20→13:49)
[2022-10-24 08:47] LABS: Basophils # (auto) 0.03 K/uL (0-0.2); Basophils % (auto) 0.3 %; Eosinophils # (auto) 0.06 K/uL (0-0.50); Eosinophils % (auto) 0.5 %; Hematocrit (blood only) 32.1 % (40.1-51.0); Hemoglobin 10.6 g/dl (14.0-18.0); Immature Granulocytes # (auto) 0.09 K/uL (0.00-0.02); Immature Granulocytes % (auto) 0.8 %; Lymphocytes # (auto) 1.35 K/uL (1.2-3.4); Lymphocytes % (auto) 12.4 %; Mean Corpuscular Hemoglobin 30.5 pg (25.0-34.0); Mean Corpuscular Volume 92.5 fL (80.0-100.0); Mean Platelet Volume 12.4 fL (9.4-12.4); Monocytes # (auto) 0.66 K/uL (0.24-0.82); Neutrophils # (auto) 8.74 K/uL (1.4-6.5); Platelet Count 111 K/uL (130-400); RDW Coefficient of Variation 14.1 % (11.5-14.5); RDW Standard Deviation 48.4 fL (36.4-46.3); Red Blood Count 3.47 M/uL (4.63-6.08); White Blood Count 10.93 K/ul (4.8-10.8)
[2022-10-24 09:15] LABS: BUN Creatinine Ratio 25.5 (10-20); Calcium 7.9 mg/dl (8.5-10.1); Creatinine Clr Calc Pharmacy 60.6 ml/min; Est GFR (African American) 80.1 ml/min; Est GFR (Non-African American) 69.1 ml/min; Potassium 3.8 mmol/L (3.5-5.1)
--- NOTE | 2022-10-24 14:33 | Discharge Summary ---
Discharge Summary Date of Service October 24, 2022 Notes For Next Care Provider Patient needs followup of an incidental renal lesion seen on CT scan non- urgently He needs to followup with [facility] for ureteral stent removal and definitive stone management in the next few weeks. He should continue Flomax until followup with Urology. Medication Changes From Visit NEW MEDICATIONS: Bactrim DS 800/160mg PO BID x 10 days Tamsulosin 0.4mg PO HS Phenazopyridine 100mg PO q8h PRN stent pain Admission HPI Per Admitting Provider This is a 81-year-old male with PMH of HTN, myasthenia gravis, atrial fibrillation not on anticoagulation due to h/o SAH, HLD, DM type II, MDD who presents with urinary retention over the past few weeks. Patient with lower bladder discomfort and would recently been evaluated by urology and started on trospium. Also endorsing left lower back pain extending into flank over the past few weeks as well. Woke today with worsening of urinary symptoms as well as shaking chills. Was brought to ED for further evaluation. Denies any fever, lightheadedness, chest pain, shortness of breath, palpitations, nausea, vomiting, dysuria, diarrhea or constipation. Admission Exam Per Admitting Provider CONSTITUTIONAL: WNWD, vitals as above, generally well-appearing, NAD EYES: PERRL, ptosis of the right eye noted compared with the left. Normal conjunctivae, no scleral icterus ENT: external ear and nose normal, MMM NECK: trachea midline RESPIRATORY: clear to auscultation bilaterally, no crackles, rales or wheezes, normal respiratory effort CARDIOVASCULAR: regular rate and rhythm, S1 and 2 heard without murmurs, gallops or rubs, no JVD, no peripheral edema CHEST: inspection of chest was normal GASTROINTESTINAL: soft, RLQ and RUQ tenderness, ND no guarding. MUSCULOSKELETAL: strength 5/5 throughout, head is normocephalic and atraumatic SKIN: warm and dry, no rashes NEUROLOGIC: CN 2-12 grossly intact, no sensory deficit, normal cognition, normal speech, no tremor PSYCHIATRIC: alert cooperative and oriented to person, place and time. Euthymic mood, makes good eye contact, language grossly intact, recent and remote memory grossly intact. Principal Dx & Hospital Course #1 = Principal Diagnosis (1) Sepsis: (2) Gram-negative bacteremia: (3) Complicated UTI (urinary tract infection): (4) Obstructive uropathy: (5) Acute kidney failure: (6) HTN (hypertension): (7) Atrial fibrillation: (8) History of subarachnoid hemorrhage: (9) DM II (diabetes mellitus, type II), controlled: (10) Myasthenia gravis: (11) Kidney lesion: Plan 82 yo man presented with severe sepsis 2/2 obstructing ureteral stone. Acute renal failure was also present evidenced by a creatinine of 1.95 (baseline (1.0). Urine was infected with proteus which extended into his blood. He was placed on intravenous cefepime for several days with improvement and transitioned to Bactrim at time of discharge to complete the course. There were blood cultures drawn after antibiotics that reflected clearance of Proteus bacteria prior to discharge. Within 24 hours of admission he was taken to the OR for a cystoscopy and left ureteral stent placement. The stone was not well visualized intraoperatively and he did require several pushes of phenylephrine during the procedure to maintain an appropriate blood pressure. Vancomycin had been given for empiric coverage in sepsis, and this was thought to have partly contributed to transient hypotension. BP remained low and intermittent IVF pushes were given as needed, and losartan was placed on hold. Blood pressure improved to 124/75 by time of discharge. He also was placed on 50% of his dose of Mestinon on admission as a result of miscommunication regarding his medications. He became weaker during his stay until this was realized and increased back to his home dose of 60mg PO TID. He improved after that point and was felt safe to return home after therapy evaluation. Daughter was present and care plans were also explained to her with questions answered. At time of discharge he was doing well with a resolution of initial admission symptoms and an improvement in post operative ureteral stent pain. He was discharged in stable condition with close primary care follow-up recommended. Discharge Exam CONSTITUTIONAL: WNWD, vitals as above, generally appears fatigued EYES: normal conjunctivae, no scleral icterus, right eye ptosis noted at rest and he can elevate eyelid fully when asked ENT: external ear and nose normal, poor dentition, MMM NECK: trachea midline RESPIRATORY: clear to auscultation bilaterally, no crackles, rales or wheezes, normal respiratory effort CARDIOVASCULAR: regular rate and rhythm, S1 and 2 heard without murmurs, gallops or rubs, no JVD, no peripheral edema CHEST: inspection of chest was normal GASTROINTESTINAL: protuberant abdomen, soft, nontender, ND, no guarding : Che in place draining yellow urine. MUSCULOSKELETAL: strength 5/5 throughout, however, he has difficulty sitting up in bed independently, head is normocephalic and atraumatic SKIN: warm and dry NEUROLOGIC: CN 2-12 grossly intact, no sensory deficit, normal cognition, normal speech, no tremor PSYCHIATRIC: alert cooperative and oriented to person, place and time. Updated Medication List Medication Instructions Recorded Confirmed Type cyanocobalamin (vitamin B-12) 1,000 mcg PO QAM 12/23/21 10/20/22 History 1,000 mcg tablet diclofenac sodium 1 % topical gel 2 g topical DIRECTED PRN Pain 12/23/21 10/20/22 History pravastatin 40 mg tablet 40 mg PO QAM 12/23/21 10/20/22 History pyridostigmine bromide 60 mg 60 mg PO TID 12/23/21 10/22/22 History tablet (Mestinon) acetaminophen 325 mg capsule 650 mg PO QID PRN Pain 01/21/22 10/20/22 History (Tylenol) losartan 50 mg tablet 50 mg PO DAILY 10/20/22 10/20/22 History trospium 20 mg tablet 20 mg PO DAILY 10/20/22 10/20/22 History phenazopyridine 100 mg tablet 100 mg PO Q8H PRN stent pain #30 10/24/22 Rx (Pyridium) tabs sulfamethoxazole 800 1 tab PO BID #20 tabs 10/24/22 Rx mg-trimethoprim 160 mg tablet (Bactrim DS) tamsulosin 0.4 mg capsule (Flomax) 0.4 mg PO HS #30 caps 10/24/22 Rx Hospital Stay Data Consultations 10/20/22 17:59 ED Decision to Admit Stat 10/20/22 18:44 Consult Urology Routine 10/21/22 12:13 Consult Infectious Diseases Routine Procedures Performed Operation Date: 10/20/22 19:00 Actual Procedures p Cystoscopy, Left Retrograde Pyelogram and Insertion Left Ureteral Stent Insertion(Left) - Luis Broussard MD Diagnostic Imagining Performed 10/20/22 14:52 CT abd pelvis wo con Stat 10/20/22 19:00 FL retrograde includes kub Routine Pending Results Patient Have Any Pending Studies at Discharge: No Discharge Instructions Given to Patient (Per Discharging Provider) Please take all medications as instructed on discharge list below. It is important to complete your antibiotic course as prescribed. You are also being given Flomax (tamsulosin) to take daily until you are able to see Urology again. For any ureteral stent pain, flank pain, please use Tylenol or Pyridium as needed. Please note that Pyridium will turn your urine orange and main stain your clothes. Please follow up with your primary care provider within 1 week of discharge from the hospital to ensure you are still doing well after returning home. While in the hospital you underwent a CT ("cat") scan of your abdomen and there was an incidental lesion on the right kidney that was 1.7cm. This was possibly consistent with a complex cyst or a small solid kidney lesion and an ultrasound of your kidneys was recommended nonemergently. This may be ordered by your primary care provider on follow-up . Please followup with [facility] for follow-up appointment since stent placement. It was a pleasure taking care of you! Please call if you have any questions or problems. You can reach a [facility] hospitalist on duty at [facility] 24 hours a day by calling [phone]. Take care of yourself. Abiola Eriwn DO [facility] Hospitalist Total Time Total Time Spent Total Time Spent (In Minutes): 60
[2022-10-24] MEDS: ENOXAPARIN INJ 40 MG/0.4 ML SYR SQ SCH (15:04)
[2022-10-24] MEDS ORDERED: CEFEPIME 2,000 MG in SYRINGE 0 ML IV SCH (16:00)
== END 2022-10-24 15:38 | disposition home or self-care (01) | DRG 853 ==
LOC: ED 14:40 → 2S 18:20 → OR 18:20 → SUATTDRO 18:44 → 2S 18:44 → 3W 10-23 17:32
DX: R33.9 Retention of urine, unspecified; A41.59 Other Gram-negative sepsis; I48.91 Unspecified atrial fibrillation; E11.22 Type 2 diabetes mellitus with diabetic chronic kidney disease; I12.9 Hypertensive chronic kidney disease with stage 1 through stage 4 chronic kidney disease, or unspecified chronic kidney disease; E87.20 Acidosis, unspecified; F32.9 Major depressive disorder, single episode, unspecified; N13.0 Hydronephrosis with ureteropelvic junction obstruction; G70.00 Myasthenia gravis without (acute) exacerbation; E78.5 Hyperlipidemia, unspecified; Z88.8 Allergy status to other drugs, medicaments and biological substances; N17.0 Acute kidney failure with tubular necrosis; R65.20 Severe sepsis without septic shock; N13.6 Pyonephrosis; N18.30 Chronic kidney disease, stage 3 unspecified

== ENCOUNTER 2023-05-28 11:17 | Observation (INO) ==
--- NOTE | 2023-05-28 12:08 | Emergency Department Note ---
Impression & Plan Symptomatic bradycardia, Anemia ED Provider Note NAME: MARIAMA PEARCE AGE: 82 SEX: M : 1940 ARRIVES VIA: Walk-In INFORMANT: Patient, ED PROVIDER(S): Ricardo Reed MD CHIEF COMPLAINT: Weakness, bradycardia MEDICAL DECISION MAKING: Patient presents due to concern for weakness and associated bradycardia. IV was established and blood work is obtained along with an EKG and a chest x- ray. Mag [place] and labs also obtained. Patient was ordered small fluid bolus. Patient's blood work shows normal white count mild anemia hemoglobin of 13.2 and normal platelet count. Kidney function was unremarkable. Total bilirubin 1.5. TSH is elevated but free T4 is normal. Urinalysis does show some blood and crystals patient has no abdominal or flank pain. Lyme's and COVID-negative. EKG does show sinus bradycardia. Do believe the patient is suffering from symptomatic bradycardia likely due to too much medication that his rate controlling. I did speak the on-call hospital service Dr. Ming Bustillo and the patient was admitted to the medicine service. I also did convey the findings and recommendations the patient who is in agreement with plan of care. Prior /Outside records reviewed: I did review a outpatient clinic note from [facility]ter patient had presented for urinary urgency with incontinence. [facility] patient does have a history of paroxysmal A-fib V. tach is on amiodarone apixaban metoprolol and diltiazem. Metoprolol succinate 25 mg and diltiazem 120 mg. Differential diagnosis: Infection, dehydration, metabolic abnormality, hypo/hyperglycemia, electrolyte disturbance, anemia, hypoxia, cardiac sources, intracerebral event, toxicologic, neurologic, as well as other pathologies. Diagnostics, as interpreted by me: ECG: Bradycardic and regular, rate of 46, normal intervals, left axis deviation, no obvious ST elevations. Cardiac monitoring: An order was placed for continuous cardiac monitoring. The monitor shows a rate of 52 with sinus bradycardia rhythm. Patient was placed on pulse oximetry Medical decision rules: None Imaging studies: See below I informally reviewed the patient's chest x-ray which does not show obvious pneumothorax. HPI: Patient presents due to concern for weakness and bradycardia. The patient states that he noticed that his heart rate was low on . Patient denies any chest pains or shortness of breath no nausea vomiting or diarrhea. When he did note that his heart rate was low he was taken off his regular metoprolol but then restarted as blood pressure had increased. Patient denies any falls or trauma. The patient does live with his . He does receive the majority of his care at [facility] as well as for the [place]. Patient states that he is scheduled for a watchman's procedure at some point. Patient is currently anticoagulated and takes Eliquis. Patient states that he took all of his morning medications including his metoprolol and diltiazem. Patient does state that he takes his apixaban as well as Mestinon in the evening. PAST MEDICAL HISTORY: See Below PAST SURGICAL HISTORY: See Below SOCIAL HISTORY: See Below HOME MEDICATIONS: See Below ALLERGIES: See Below VITALS: See Below PHYSICAL EXAMINATION: GENERAL: NAD, non-toxic. EYE EXAM: Normal conjunctiva. PERRL, no anisocoria and EOM's grossly intact w/o pain. OROPHARYNX: Moist mucus membranes, grossly normal dentition. NECK: Supple, no nuchal rigidity, no adenopathy, non-tender. No signs of meningismus. FROM of the neck with good chin to chest and neck extension. No stridor. LUNGS: Clear to auscultation. Normal chest wall mechanics. HEART: Bradycardic and regular, no MRG. ABDOMEN: Abdomen soft, non-tender, no masses, no rebound or guarding. BACK: No CVA TTP. SKIN: No rashes and no bruising. UPPER EXTREMITIES: Upper extremities are grossly normal. LOWER EXTREMITIES: Grossly normal, no edema. NEURO EXAM: A&O x3, cranial nerves II-XII grossly intact, normal speech, moves all 4 extremities. Past Med/Surg History Medical History Atrial [facility] [place] [facility] 07/2022 Carotid stenosis s/p carotid endarterectomy, side unknown DM II (diabetes mellitus, type II), controlled diet controlled, no longer on meds History of subarachnoid hemorrhage 12/2021 HLD (hyperlipidemia) HTN (hypertension) IBS (irritable bowel syndrome) Kidney lesion Left ureteral stone MDD (major depressive disorder) Myasthenia gravis Surgical History History of carotid endarterectomy done about 5 yrs ago, [place] History of vasectomy Hx of cystoscopy w/ stent 10/20/22 MAC. Post-op anesthesia progress note: "slightly hypotensive but is close to his preoperative baseline and has been receiving Vancomycin through his IV. His other vital signs are stable." S/P cholecystectomy Family History Father Stroke Social History Smoking Status: Never smoker Second Hand Exposure: No; Do You Dip or Chew Tobacco: No; Tobacco Cessation Education Requested by Patient: No Hx Alcohol Use: No Hx Substance Use: No Preferred Language: German Communication Ability: Effective Visual Impairment: No Limitations Copy Coordinator Required: No Beliefs That Will Affect Care: None marital status: Current Living Situation: Spouse current occupational status: retired Other Information That Helps Us Care for You: No Feels Safe at Home: Yes Safety Concerns: Feels Safe At This Time caffeine: Yes Assistive Devices: Cane and Glasses Allergies Allergies Allergy/AdvReac Type Severity Reaction Status Date / Time felodipine Allergy Intermediate hives Verified 05/10/23 12:51 flunisolide Allergy Unknown other Verified 05/10/23 12:51 gabapentin AdvReac Intermediate GI SYMPTOMS Verified 05/10/23 12:51 Thiazides AdvReac Intermediate CAUSED GOUT Verified 05/10/23 12:51 Home Meds Home Medications Medication Instructions Recorded Confirmed cyanocobalamin (vitamin B-12) 1,000 mcg PO QAM 12/23/21 05/28/23 1,000 mcg tablet pravastatin 40 mg tablet 40 mg PO HS 12/23/21 05/28/23 pyridostigmine bromide 60 mg 60 mg PO TID 12/23/21 05/28/23 tablet (Mestinon) acetaminophen 325 mg capsule 650 mg PO QID PRN Pain 01/21/22 05/28/23 (Tylenol) losartan 50 mg tablet 50 mg PO DAILY 10/20/22 05/28/23 apixaban 5 mg tablet (Eliquis) 5 mg PO BID 05/10/23 05/28/23 metoprolol succinate 25 mg 25 mg PO DAILY 05/10/23 05/28/23 tablet,extended release 24 hr amiodarone 200 mg tablet 200 mg PO DAILY 05/28/23 05/28/23 diltiazem HCl 120 mg capsule,24 120 mg PO DAILY 05/28/23 05/28/23 hr,extended release mirabegron 50 mg tablet,extended 50 mg PO DAILY 05/28/23 05/28/23 release 24 hr (Myrbetriq) Results & Data (ED) Vital Signs Vital Signs - 24 hr 05/28/23 11:20 05/28/23 12:22 05/28/23 12:26 Temperature 36.7 C Temperature Source Temporal Artery Scan Pulse Rate 45 L Pulse Rate [Apical] 44 L Pulse Rhythm [Apical] Regular Respiratory Rate 18 18 Respiratory Effort / Characteristics Non-Labored Non-Labored Spontaneous Respiratory Depth Normal Normal Respiratory Pattern Regular Regular Blood Pressure 106/54 L Blood Pressure [Right Arm] 126/65 Blood Pressure Mean 71 Blood Pressure Mean [Right Arm] 85 Blood Pressure Position Sitting Blood Pressure Position [Right Arm] Lying Pulse Oximetry 96 95 95 Oxygen Delivery Method Room Air Room Air Room Air Sepsis Recent Fever Within 48 Hours No Sepsis New/Unexplained Change in Mental Status No Sepsis Action Taken by Nursing No Action Required 05/28/23 12:26 05/28/23 14:09 Temperature Temperature Source Pulse Rate 44 L Pulse Rate [Apical] 44 L Pulse Rhythm [Apical] Regular Respiratory Rate 18 Respiratory Effort / Characteristics Non-Labored Spontaneous Respiratory Depth Normal Respiratory Pattern Regular Blood Pressure Blood Pressure [Right Arm] 135/68 Blood Pressure Mean Blood Pressure Mean [Right Arm] 90 Blood Pressure Position Blood Pressure Position [Right Arm] Pulse Oximetry 97 Oxygen Delivery Method Room Air Sepsis Recent Fever Within 48 Hours Sepsis New/Unexplained Change in Mental Status Sepsis Action Taken by [facility] Medications Current Medication List: was personally reviewed by me Laboratory Data Attestation: I reviewed the patient's lab results. 05/28/23 11:53 05/28/23 11:53 Lab Results 05/28/23 05/28/23 05/28/23 Range/Units 11:53 11:53 11:53 WBC 6.49 (4.8-10.8) K/ul RBC 4.31 L (4.70-6.10) M/uL Hgb 13.2 L (14.0-18.0) g/dl Hct 40.7 L (42.0-52.0) % MCV 94.4 (80.0-100.0) fL MCH 30.6 (25.0-34.0) pg MCHC 32.4 (32.0-36.0) g/dL RDW Std Deviation 50.5 H (36.4-46.3) fL RDW Coeff of [place] 14.6 H (11.5-14.5) % Plt Count 158 (130-400) K/uL MPV 11.6 (9.4-12.4) fL Immature Gran % (Auto) 0.2 % Neut % (Auto) 67.6 % Lymph % (Auto) 19.6 % [place] % (Auto) 11.1 % Eos % (Auto) 0.9 % Baso % (Auto) 0.6 % Neut # (Auto) 4.39 (1.40-6.50) K/uL Lymph # (Auto) 1.27 (1.2-3.4) K/uL [place] # (Auto) 0.72 H (0.11-0.59) K/uL Eos # (Auto) 0.06 (0-0.50) K/uL Baso # (Auto) 0.04 (0-0.2) K/uL Immature Gran # (Auto) 0.01 (0.01-0.20) K/uL PT 12.3 H (9.0-12.0) Seconds INR 1.1 (0.9-1.1) Sodium 142 (136-145) mmol/L Potassium 3.9 (3.5-5.1) mmol/L Chloride 112 H (98-107) mmol/L Carbon Dioxide 23 (21-32) mmol/L Anion Gap 7 (3-11) BUN 20 (6-23) mg/dl Creatinine 1.05 (0.6-1.4) mg/dl Est Cr Clr Drug Dosing 63.7 ml/min Est GFR ( Amer) 77.3 ml/min Est GFR (Non-Af Amer) 66.7 ml/min BUN/Creatinine Ratio 19.0 (10-20) Glucose 103 H (70-99(Fasting)) mg/dl Calcium 8.6 (8.6-10.3) mg/dl Phosphorus 3.1 (2.5-4.9) mg/dl Magnesium 1.8 (1.7-2.4) mg/dl Total Bilirubin 1.5 H (0.2-1.0) mg/dl AST 19 (13-39) U/L ALT 10 (7-52) U/L Alkaline Phosphatase 45 (34-104) U/L Troponin I High Sens < 2.3 (0-20) pg/ml Total Protein 6.3 (6.0-8.3) gm/dl Albumin 3.8 (3.4-5.0) gm/dl Globulin 2.5 (2.5-4.0) gm/dl Albumin/Globulin Ratio 1.5 (0.9-2) TSH (0.300-4.500) uIu/ml Free T4 (0.61-1.60) ng/dl Urine Color Urine Appearance (Clear) Urine pH (4.5-7.5) Ur Specific [place] (1.000-1.030) Urine Protein (Negative) Urine Glucose (UA) (Negative) Urine Ketones (Negative) Urine Blood (Negative) Urine Nitrite (Negative) Urine Bilirubin (Negative) Urine Urobilinogen (Negative) Ur Leukocyte Esterase (Negative) Urine WBC (Auto) (0-5) /hpf Urine RBC (Auto) (0-4) /hpf U Hyaline Cast (Auto) (0-5) /lpf U Epithel Cells (Auto) (0-5) /lpf Urine Bacteria (Auto) (Negative) Urine Crystals Calcium Oxalate Crystal (None Prsent) Lyme Disease IgG Ab (Negative) Lyme Disease IgM Ab (Negative) SARS-CoV-2, RNA, NAAT (NEGATIVE) 05/28/23 05/28/23 05/28/23 Range/Units 11:53 11:53 12:38 WBC (4.8-10.8) K/ul RBC (4.70-6.10) M/uL Hgb (14.0-18.0) g/dl Hct (42.0-52.0) % MCV (80.0-100.0) fL MCH (25.0-34.0) pg MCHC (32.0-36.0) g/dL RDW Std Deviation (36.4-46.3) fL RDW Coeff of [place] (11.5-14.5) % Plt Count (130-400) K/uL MPV (9.4-12.4) fL Immature Gran % (Auto) % Neut % (Auto) % Lymph % (Auto) % [place] % (Auto) % Eos % (Auto) % Baso % (Auto) % Neut # (Auto) (1.40-6.50) K/uL Lymph # (Auto) (1.2-3.4) K/uL [place] # (Auto) (0.11-0.59) K/uL Eos # (Auto) (0-0.50) K/uL Baso # (Auto) (0-0.2) K/uL Immature Gran # (Auto) (0.01-0.20) K/uL PT (9.0-12.0) Seconds INR (0.9-1.1) Sodium (136-145) mmol/L Potassium (3.5-5.1) mmol/L Chloride (98-107) mmol/L Carbon Dioxide (21-32) mmol/L Anion Gap (3-11) BUN (6-23) mg/dl Creatinine (0.6-1.4) mg/dl Est Cr Clr Drug Dosing ml/min Est GFR ( Amer) ml/min Est GFR (Non-Af Amer) ml/min BUN/Creatinine Ratio (10-20) Glucose (70-99(Fasting)) mg/dl Calcium (8.6-10.3) mg/dl Phosphorus (2.5-4.9) mg/dl Magnesium (1.7-2.4) mg/dl Total Bilirubin (0.2-1.0) mg/dl AST (13-39) U/L ALT (7-52) U/L Alkaline Phosphatase (34-104) U/L Troponin I High Sens (0-20) pg/ml Total Protein (6.0-8.3) gm/dl Albumin (3.4-5.0) gm/dl Globulin (2.5-4.0) gm/dl Albumin/Globulin Ratio (0.9-2) TSH 6.538 H (0.300-4.500) uIu/ml Free T4 1.05 (0.61-1.60) ng/dl Urine Color Urine Appearance (Clear) Urine pH (4.5-7.5) Ur Specific [place] (1.000-1.030) Urine Protein (Negative) Urine Glucose (UA) (Negative) Urine Ketones (Negative) Urine Blood (Negative) Urine Nitrite (Negative) Urine Bilirubin (Negative) Urine Urobilinogen (Negative) Ur Leukocyte Esterase (Negative) Urine WBC (Auto) (0-5) /hpf Urine RBC (Auto) (0-4) /hpf U Hyaline Cast (Auto) (0-5) /lpf U Epithel Cells (Auto) (0-5) /lpf Urine Bacteria (Auto) (Negative) Urine Crystals Calcium Oxalate Crystal (None Prsent) Lyme Disease IgG Ab Negative (Negative) Lyme Disease IgM Ab Negative (Negative) SARS-CoV-2, RNA, NAAT NEGATIVE (NEGATIVE) 05/28/23 Range/Units 13:43 WBC (4.8-10.8) K/ul RBC (4.70-6.10) M/uL Hgb (14.0-18.0) g/dl Hct (42.0-52.0) % MCV (80.0-100.0) fL MCH (25.0-34.0) pg MCHC (32.0-36.0) g/dL RDW Std Deviation (36.4-46.3) fL RDW Coeff of [place] (11.5-14.5) % Plt Count (130-400) K/uL MPV (9.4-12.4) fL Immature Gran % (Auto) % Neut % (Auto) % Lymph % (Auto) % [place] % (Auto) % Eos % (Auto) % Baso % (Auto) % Neut # (Auto) (1.40-6.50) K/uL Lymph # (Auto) (1.2-3.4) K/uL [place] # (Auto) (0.11-0.59) K/uL Eos # (Auto) (0-0.50) K/uL Baso # (Auto) (0-0.2) K/uL Immature Gran # (Auto) (0.01-0.20) K/uL PT (9.0-12.0) Seconds INR (0.9-1.1) Sodium (136-145) mmol/L Potassium (3.5-5.1) mmol/L Chloride (98-107) mmol/L Carbon Dioxide (21-32) mmol/L Anion Gap (3-11) BUN (6-23) mg/dl Creatinine (0.6-1.4) mg/dl Est Cr Clr Drug Dosing ml/min Est GFR ( Amer) ml/min Est GFR (Non-Af Amer) ml/min BUN/Creatinine Ratio (10-20) Glucose (70-99(Fasting)) mg/dl Calcium (8.6-10.3) mg/dl Phosphorus (2.5-4.9) mg/dl Magnesium (1.7-2.4) mg/dl Total Bilirubin (0.2-1.0) mg/dl AST (13-39) U/L ALT (7-52) U/L Alkaline Phosphatase (34-104) U/L Troponin I High Sens (0-20) pg/ml Total Protein (6.0-8.3) gm/dl Albumin (3.4-5.0) gm/dl Globulin (2.5-4.0) gm/dl Albumin/Globulin Ratio (0.9-2) TSH (0.300-4.500) uIu/ml Free T4 (0.61-1.60) ng/dl Urine Color Yellow Urine Appearance Clear (Clear) Urine pH 5.5 (4.5-7.5) Ur Specific [place] 1.020 (1.000-1.030) Urine Protein Negative (Negative) Urine Glucose (UA) Negative (Negative) Urine Ketones Negative (Negative) Urine Blood 2+ H (Negative) Urine Nitrite Negative (Negative) Urine Bilirubin Negative (Negative) Urine Urobilinogen Negative (Negative) Ur Leukocyte Esterase 1+ H (Negative) Urine WBC (Auto) 1-5 (0-5) /hpf Urine RBC (Auto) 0-4 (0-4) /hpf U Hyaline Cast (Auto) 0 (0-5) /lpf U Epithel Cells (Auto) 10-20 H (0-5) /lpf Urine Bacteria (Auto) Negative (Negative) Urine Crystals Not Reportable Calcium Oxalate Crystal Present A (None Prsent) Lyme Disease IgG Ab (Negative) Lyme Disease IgM Ab (Negative) SARS-CoV-2, RNA, NAAT (NEGATIVE) Administered Medications Discontinued Medications Sodium Chloride (Nss) 250 mls @ 999 mls/hr IV .Q16M ONE Stop: 05/28/23 12:40 Last Infusion: 05/28/23 13:40 Dose: 0 mls/hr Documented By: Admin: 05/28/23 12:36 Dose: 999 mls/hr Documented By: JAIMIE Imaging Data Radiologist's Impression: Chest X-Ray 05/28/23 12:25 XR chest 1V portable CLINICAL HISTORY: weakness COMPARISON STUDY: Chest radiograph March 10, 2023. FINDINGS: Lung volumes are normal. Lungs are clear. There is no pneumothorax or pleural effusion. Cardiomegaly is unchanged. Mediastinal contours are normal. There is no evidence for pulmonary edema. IMPRESSION: No acute cardiopulmonary findings. Stable cardiomegaly. ACT 112: Negative or not required by law. Electronically signed by: Kiet Fabian M.D. 05/28/2023 1:51 PM Discharge Plan Visit Data Chief Complaint: Weakness Stated Complaint: TIRED, UNSTEADY ON FEET, WEAKNESS ED Provider: Ricardo Reed Discharge Problem: Symptomatic bradycardia, Anemia Discharge Instructions Interventions: ED Discharge Assessment Last Done: 05/28/23 15:20
[2023-05-28] MEDS ORDERED: SODIUM CHLORIDE 0.9% 250 ML IV ONE (12:25)
[2023-05-28 12:43] LABS: Albumin Level 3.8 gm/dl (3.4-5.0); Anion Gap 7 (3-11); Bilirubin,Total 1.5 mg/dl (0.2-1.0); Calcium 8.6 mg/dl (8.6-10.3); Carbon Dioxide 23 mmol/L (21-32); Chloride 112 mmol/L (98-107); Magnesium 1.8 mg/dl (1.7-2.4); Potassium 3.9 mmol/L (3.5-5.1); Sodium 142 mmol/L (136-145)
[2023-05-28 12:49] LABS: Alanine Aminotransferase 10 U/L (7-52); Albumin Globulin Ratio 1.5 (0.9-2); Alkaline Phosphatase 45 U/L (34-104); Aspartate Aminotransferase 19 U/L (13-39); Blood Urea Nitrogen 20 mg/dl (6-23); Creatinine Clr Calc Pharmacy 63.7 ml/min; Est GFR (African American) 77.3 ml/min; Est GFR (Non-African American) 66.7 ml/min; Globulin 2.5 gm/dl (2.5-4.0); Glucose 103 mg/dl (70-99(Fasting)); Phosphorus 3.1 mg/dl (2.5-4.9); Total Protein 6.3 gm/dl (6.0-8.3)
[2023-05-28 12:53] LABS: Troponin I High Sensitivity < 2.3 pg/ml (0-20)
[2023-05-28 12:54] LABS: Basophils # (auto) 0.04 K/uL (0-0.2); Basophils % (auto) 0.6 %; Eosinophils # (auto) 0.06 K/uL (0-0.50); Eosinophils % (auto) 0.9 %; Hematocrit (blood only) 40.7 % (42.0-52.0); Hemoglobin 13.2 g/dl (14.0-18.0); Immature Granulocytes # (auto) 0.01 K/uL (0.01-0.20); Immature Granulocytes % (auto) 0.2 %; Lymphocytes # (auto) 1.27 K/uL (1.2-3.4); Lymphocytes % (auto) 19.6 %; Mean Corpuscular Hemoglobin 30.6 pg (25.0-34.0); Mean Corpuscular Hgb Conc 32.4 g/dL (32.0-36.0); Mean Corpuscular Volume 94.4 fL (80.0-100.0); Mean Platelet Volume 11.6 fL (9.4-12.4); Monocytes # (auto) 0.72 K/uL (0.11-0.59); Monocytes % (auto) 11.1 %; Neutrophils # (auto) 4.39 K/uL (1.40-6.50); Neutrophils % (auto) 67.6 %; Platelet Count 158 K/uL (130-400); RDW Coefficient of Variation 14.6 % (11.5-14.5); RDW Standard Deviation 50.5 fL (36.4-46.3); Red Blood Count 4.31 M/uL (4.70-6.10); White Blood Count 6.49 K/ul (4.8-10.8)
[2023-05-28 13:01] LABS: Thyroid Stimulating Hormone 6.538 uIu/ml (0.300-4.500)
[2023-05-28 13:11] LABS: INR 1.1 (0.9-1.1); Prothrombin Time 12.3 Seconds (9.0-12.0)
[2023-05-28 13:14] LABS: Lyme Ab IgG w/WB Rflx Negative (Negative); Lyme Ab IgM w/WB Rflx Negative (Negative)
[2023-05-28 13:45] LABS: T4 Free Thyroxine 1.05 ng/dl (0.61-1.60)
--- NOTE | 2023-05-28 13:52 | XRay Report ---
XR chest 1V portable CLINICAL HISTORY: weakness COMPARISON STUDY: Chest radiograph March 10, 2023. FINDINGS: Lung volumes are normal. Lungs are clear. There is no pneumothorax or pleural effusion. Car diomegaly is unchanged. Mediastinal contours are normal. There is no evidence for pulmonary edema. IMPRESSION: No acute cardiopulmonary findings. Stable cardiomegaly. ACT 112: Negative or not required by law. Electronically signed by: Kiet Fabian M.D. 05/28/2023 1:51 PM
[2023-05-28 13:53] LABS: Appearance Urine Clear (Clear); Bacteria Urine Automated Negative (Negative); Bilirubin Urine Negative (Negative); Blood Urine 2+ (Negative); Cast Urine Automated 0 /lpf (0-5); Color Urine Yellow; Glucose Urine UA Negative (Negative); Ketones Urine Negative (Negative); Leukocyte Esterase Urine 1+ (Negative); Nitrite Urine Negative (Negative); Protein Urine Negative (Negative); Urobilinogen Urine Negative (Negative); pH Urine 5.5 (4.5-7.5)
[2023-05-28 14:31] LABS: Calcium Oxalate Crystals Urine Present (None Prsent); RBC Urine Automated 0-4 /hpf (0-4)
--- NOTE | 2023-05-28 14:43 | History & Physical Report ---
Date of Service May 28, 2023 Assessment & Plan (1) Symptomatic bradycardia: Plan: Past medical history of paroxysmal A-fib with recent cardioversion as per patient (on amiodarone, metoprolol, Cardizem; anticoagulated with Eliquis), Recent history of DOMINIQUE status post cardioversion for A-fib to be expected Presented with fatigue and tiredness for 4 days along with bradycardia. EKG shows sinus bradycardia with PAC. No leukocytosis. Potassium3.9. TSH slightly elevated with normal free T4.; Consistent with subclinical hypothyroidism. Hold Cardizem. Continue amiodarone and metoprolol. Discussed with cardiology. Telemetry monitoring. BMP and magnesium daily. PT OT eval Other conditions; Atrial fibrillationcurrently in sinus rhythm. Cardizem on hold. Continue amiodarone and metoprolol. Myasthenia gravis; continue on pyridostigmine Hypertensioncontinue losartan. Cardizem and metoprolol on hold. Hyperlipidemiacontinue on pravastatin DVT prophylaxis Eliquis Full code Time spent evaluating patient, direct bedside care, chart review, placing ord ers, interpretation of diagnostic studies, discussion with consultants, patient, and family members, as well as other required patient management activities is 75 minutes. Please note the above document was generated using voice recognition software. It may contain grammatical, syntax or spelling errors. Any formal questions or concerns about the content, text or information contained within the body of this dictation should be directly addressed to the provider for clarification History of Present Illness Chief Complaint: Fatigue and tiredness for 4 days Bradycardia for 4 days Primary Care Provider: Juan August MD History obtained from chart review and interview with the patient. Past medical history of paroxysmal A-fib with recent cardioversion as per patient (on amiodarone, metoprolol, Cardizem; anticoagulated with Eliquis), myasthenia gravis, hypertension, hyperlipidemia, type 2 diabetes mellitus. Patient reports fatigue and tiredness for the last 4 days. He measures his blood pressure and heart rate every day in the morning; noticed that his heart rate was in 40s since last 4 days. He denies dizziness, chest pain or increasing shortness of breath. Denies fever, chills, abdominal pain or urinary symptoms. He reports that he had undergone DOMINIQUE with cardioversion 2 weeks back. He took all of his medications today morning at 8 AM. He reports that he will be undergoing Watchman device procedure at the end of the year. He lives with his ; walks with the help of a cane. On presentation to the ED, he was found to be slightly hypotensive with blood pressure of 106/54. He was afebrile and saturating well on room air. EKG shows sinus bradycardia with PAC. No leukocytosis. Potassium3.9. TSH slightly elevated with normal free T4. Patient to be admitted to telemetry for further observation Past medical history as above Past surgical history; history of left ureteral stent; removed in November 2022. Right carotid endarterectomy, cataract surgery, cholecystectomy, left inguinal hernia repair. Personal history; used to chew tobacco. Non-smoker. Does not drink alcohol. Allergies Allergy/AdvReac Type Severity Reaction Status Date / Time felodipine Allergy Intermediate hives Verified 05/10/23 12:51 flunisolide Allergy Unknown other Verified 05/10/23 12:51 gabapentin AdvReac Intermediate GI SYMPTOMS Verified 05/10/23 12:51 Thiazides AdvReac Intermediate CAUSED GOUT Verified 05/10/23 12:51 Home Medications Medication Instructions Recorded Confirmed Type cyanocobalamin (vitamin B-12) 1,000 mcg PO QAM 12/23/21 05/28/23 History 1,000 mcg tablet pravastatin 40 mg tablet 40 mg PO HS 12/23/21 05/28/23 History pyridostigmine bromide 60 mg 60 mg PO TID 12/23/21 05/28/23 History tablet (Mestinon) acetaminophen 325 mg capsule 650 mg PO QID PRN Pain 01/21/22 05/28/23 History (Tylenol) losartan 50 mg tablet 50 mg PO DAILY 10/20/22 05/28/23 History apixaban 5 mg tablet (Eliquis) 5 mg PO BID 05/10/23 05/28/23 History metoprolol succinate 25 mg 25 mg PO DAILY 05/10/23 05/28/23 History tablet,extended release 24 hr diltiazem HCl 120 mg capsule,24 120 mg PO DAILY 05/28/23 05/28/23 History hr,extended release mirabegron 50 mg tablet,extended 50 mg PO DAILY 05/28/23 05/28/23 History release 24 hr (Myrbetriq) Past Med/Surg History Medical History [facility] [place] [facility]/2022 Carotid stenosis s/p carotid endarterectomy, side unknown DM II (diabetes mellitus, type II), controlled diet controlled, no longer on meds History of subarachnoid hemorrhage 12/2021 HLD (hyperlipidemia) HTN (hypertension) IBS (irritable bowel syndrome) Kidney lesion Left ureteral stone MDD (major depressive disorder) Myasthenia gravis Surgical History History of [facility] [place] History of vasectomy Hx of cystoscopy w/ stent 10/20/22 MAC. Post-op anesthesia progress note: "slightly hypotensive but is close to his preoperative baseline and has been receiving Vancomycin through his IV. His other vital signs are stable." S/P cholecystectomy Family History Father Stroke Social History Smoking Status: Never smoker Second Hand Exposure: No; Do You Dip or Chew Tobacco: No; Hx Alcohol Use: No Hx Substance Use: No Preferred Language: Trinidadian Communication Ability: Effective Visual Impairment: No Limitations Textile Engineer Required: No Beliefs That Will Affect Care: None marital status: Current Living Situation: Spouse current occupational status: retired Feels Safe at Home: Yes caffeine: Yes Assistive Devices: Cane and Glasses Review of Systems Review of Systems: All systems reviewed & are unremarkable except as noted in Subjective Physical Exam Physical Exam: Constitutional: Awake alert oriented x3. Not in distress. Head: Normocephalic, Atraumatic Eyes: Left eye ptosis ENMT: external ear and nose normal, oropharynx normal Neck: trachea midline, no thyromegaly normal visual inspection Respiratory: normal respiratory effort, lungs clear to auscultation, no wheeze, rales, rhonchi. Normal insp/exp effort, no accessory muscle use Cardiovascular: Regular, S1-S2 heard Chest: normal inspection of chest Abdomen: normal bowel sounds, soft, nontender, no hepatosplenomegaly Musculoskeletal: no cyanosis or clubbing, extremities motor strength 5/5. 1+ pitting edema present. Skin: no rashes, warm and dry normal turgor Neurologic: PERRL, EOMI, accommodation nl, no face palsy, no dysarthria CN's II- XI intact bilaterally and moves all extremities Psychiatric: A+Ox3, euthymic affect Results & Data Results & Data Vital Signs (Past 12 Hours) Vital Signs Temp Pulse Pulse Resp BP BP Pulse Ox 05/28/23 14:09 44 L 18 135/68 97 05/28/23 12:26 44 L 05/28/23 12:26 95 05/28/23 12:22 44 L 18 126/65 95 05/28/23 11:20 36.7 C 45 L 18 106/54 L 96 O2 Del Method 05/28/23 14:09 Room Air 05/28/23 12:26 05/28/23 12:26 Room Air 05/28/23 12:22 Room Air 05/28/23 11:20 Room Air
[2023-05-28] MEDS ORDERED: ALUMINUM/MAGNESIUM SUSP 30 ML UDC PO PRN (15:53)
[2023-05-28] MEDS ORDERED: NON-FORMULARY MEDICATION (Acetaminophen [Tylenol] 325 mg Capsule) PO PRN (15:53)
[2023-05-28] MEDS ORDERED: ACETAMINOPHEN 325 MG TAB PO PRN (15:53)
--- NOTE | 2023-05-28 19:12 | Cardiology Consultation ---
Date of Consultation May 28, 2023 Assessment & Plan (1) Symptomatic bradycardia: Patient has a history of fall with traumatic subdural hematoma in December,. Presented January, with newly recognized atrial fibrillation with rapid ventricular response. Anticoagulation avoided at that time, and he converted to sinus rhythm after treatment with diltiazem and ultimately amiodarone due to elevated rates. He was discharged with sinus bradycardia in the 50s on amiodarone 200 mg twice daily at that time. As noted, he has followed up with with [facility] cardiology in the interim. Today is a Monday, and although I am able to see limited outpatient records within the [facility] system via the "CareEverywhere" feature of the [employer] record, I am unable to see records of hospital encounters at [facility]. It would appear that the patient was planned for a Watchman device was canceled in October, as he had been admitted for urosepsis and received a ureter stent and this had yet to be rescheduled. After amiodarone was stopped over 6 months ago he reverted to atrial f ibrillation and would appear that he underwent recent outpatient cardioversion and was discharged on amiodarone 200 mg daily, metoprolol succinate 25 mg daily, and diltiazem CD 120 mg daily. He presents today with generalized fatigue, and was found to have sinus bradycardia in the 40s. He had already taken his morning medications today. His heart rate was improved at the time of my assessment with sinus bradycardia in the 50s and he was asymptomatic. He notes no recent dizziness, syncope or near syncope. Based on the fact that he had previously been noted to have sinus rhythm in the 50s on amiodarone 100 mg daily, I recommend holding his oral diltiazem. Metoprolol to be continued for now, but based on experience of PAD with other patients with myasthenia gravis, typically neurology recommends avoiding metoprolol in patients with myasthenia gravis. We will plan on continuing amiodarone 200 mg daily for now as certainly a rhythm control strategy has recently been deemed to be indicated for this patient by his primary lining cutter. His TSH level of 6.5 is felt to be acceptable. Continue cautious treatment with Eliquis which the patient believes was started a few weeks prior to cardioversion. No acute indication for pacemaker felt to be present at this time. History of Present Illness Attending Physician: Ezequiel Wolff MD History of Present Illness Mr Huizar is an 82-year-old male seen in cardiology consultation for subjective complaint of generalized fatigue and findings of sinus bradycardia as per the request of Dr. Wolff. The patient receives his primary care from the [facility] in [place]. He does not follow with our cardiology practice as an outpatient and has recently followed with Dr Villasenor of [facility]. In December, he had a fall getting out of bed and presented to [facility].a CT revealed a subdural hematoma and he was transferred to [facility], discharged on December 25, 2021. He was seen in cardiology consultation by Dr. Pedro and then in follow-up by the undersigned during his hospital stay in January,. At that time he had presented with dizziness and was found to be in atrial fibrillation with rapid ventricular response. At that time he was treated with a diltiazem infusion, and amiodarone was added for rate control due to ongoing rapid ventricular response. He subsequently converted to sinus rhythm on 01/24/2022. Amiodarone was transitioned to a dose of 200 mg twice daily. And he was discharged on amiodarone with EKG prior to discharge during that hospital stay revealing sinus bradycardia 59 bpm with incomplete right bundle branch block. Anticoagulation not started at that time due to history of fall and subdural hematoma. Per review of records,He saw Dr Mraques of [facility] on 10/04/2022. At that time his medication regimen included amiodarone 100 mg daily. He was not on anticoagulation. Sinus bradycardia in 50s noted at the time of that visit, and there is discussion with regards to weaning him from amiodarone due to patient concerns of potential long-term side effects. The patient subsequently underwent a transesophageal echocardiogram in [place] in October, with plans of consideration of percutaneous left atrial appendage occlusion device (Watchman device). Per the patient, the procedure had been tentatively planned but then he ended up hospitalized with urosepsis due to a left ureter stone with renal insufficiency and ureter stent placed at that time. The next available EKG was performed at [facility] 03/10/2023 at the time of her emergency room visit, revealing atrial fibrillation with rapid ventricular spots. The patient received a dose of IV diltiazem with improved rates and was discharged home. Patient reportedly had been placed on anticoagulation with Eliquis about a month ago and underwent outpatient direct-current cardioversion a week or two ago. Allergies Allergy/AdvReac Type Severity Reaction Status Date / Time felodipine Allergy Intermediate hives Verified 05/10/23 12:51 flunisolide Allergy Unknown other Verified 05/10/23 12:51 gabapentin AdvReac Intermediate GI SYMPTOMS Verified 05/10/23 12:51 Thiazides AdvReac Intermediate CAUSED GOUT Verified 05/10/23 12:51 Home Medications Medication Instructions Recorded Confirmed Type cyanocobalamin (vitamin B-12) 1,000 mcg PO QAM 12/23/21 05/28/23 History 1,000 mcg tablet pravastatin 40 mg tablet 40 mg PO HS 12/23/21 05/28/23 History pyridostigmine bromide 60 mg 60 mg PO TID 12/23/21 05/28/23 History tablet (Mestinon) acetaminophen 325 mg capsule 650 mg PO QID PRN Pain 01/21/22 05/28/23 History (Tylenol) losartan 50 mg tablet 50 mg PO DAILY 10/20/22 05/28/23 History apixaban 5 mg tablet (Eliquis) 5 mg PO BID 05/10/23 05/28/23 History metoprolol succinate 25 mg 25 mg PO DAILY 05/10/23 05/28/23 History tablet,extended release 24 hr amiodarone 200 mg tablet 200 mg PO DAILY 05/28/23 05/28/23 History diltiazem HCl 120 mg capsule,24 120 mg PO DAILY 05/28/23 05/28/23 History hr,extended release mirabegron 50 mg tablet,extended 50 mg PO DAILY 05/28/23 05/28/23 History release 24 hr (Myrbetriq) Patient History Medical History Atrial fibrillation [facility] [place] [facility] 07/2022 Carotid stenosis s/p carotid endarterectomy, side unknown DM II (diabetes mellitus, type II), controlled diet controlled, no longer on meds History of subarachnoid hemorrhage 12/2021 HLD (hyperlipidemia) HTN (hypertension) IBS (irritable bowel syndrome) Kidney lesion Left ureteral stone MDD (major depressive disorder) Myasthenia gravis Surgical History History of carotid endarterectomy done about 5 yrs ago, [place] in [place] History of vasectomy Hx of cystoscopy w/ stent 10/20/22 MAC. Post-op anesthesia progress note: "slightly hypotensive but is close to his preoperative baseline and has been receiving Vancomycin through his IV. His other vital signs are stable." S/P cholecystectomy Family History Father Stroke Social History Smoking Status: Never smoker Second Hand Exposure: No; Do You Dip or Chew Tobacco: No; Tobacco Cessation Education Requested by Patient: No Hx Alcohol Use: No Hx Substance Use: No Preferred Language: Lao Communication Ability: Effective Visual Impairment: No Limitations Bullard Machine Operator Required: No Beliefs That Will Affect Care: None marital status: Current Living Situation: Spouse current occupational status: retired Other Information That Helps Us Care for You: No Feels Safe at Home: Yes Safety Concerns: Feels Safe At This Time caffeine: Yes Assistive Devices: Cane and Glasses Review of Systems Review of Systems: All systems reviewed & are unremarkable except as noted in HPI & below Physical Exam Constitutional: WD/WN, vitals as above Respiratory: normal respiratory effort, lungs clear to auscultation Cardiovascular: RRR, no murmur, no edema Gastrointestinal (Abdomen): normal bowel sounds, soft, nontender, no hepatosplenomegaly Neurologic: PERRL, EOMI, accommodation nl, no face palsy, no dysarthria Results & Data Vital Signs (Past 12 Hours) Vital Signs Temp Pulse Pulse Resp BP BP Pulse Ox 05/28/23 17:56 46 L 05/28/23 15:38 05/28/23 15:38 36.5 C 45 L 18 164/74 H 98 05/28/23 15:20 05/28/23 14:09 44 L 18 135/68 97 05/28/23 12:26 44 L 05/28/23 12:26 95 05/28/23 12:22 44 L 18 126/65 95 05/28/23 11:20 36.7 C 45 L 18 106/54 L 96 Pulse Ox O2 Del Method O2 Del Method 05/28/23 17:56 05/28/23 15:38 98 Room Air 05/28/23 15:38 Room Air 05/28/23 15:20 Room Air 05/28/23 14:09 Room Air 05/28/23 12:26 05/28/23 12:26 Room Air 05/28/23 12:22 Room Air 05/28/23 11:20 Room Air Laboratory Results TSH 6.538 Diagnostic Findings Summary of echocardiogram performed 01/22/2022: Atrial fibrillation with rapid ventricular spots present the time of the study, LVEF 6065%, with no regional wall motion abnormalities, mild aortic valve calcification without aortic stenosis noted, moderate mitral annular calcification noted without mitral stenosis or significant mitral regurgitation EKG performed today 05/28/2023 at 11:27 AM and reviewed independently: Sinus bradycardia at 46 bpm, poor R wave progression noted in the anterior precordial leads. Compared to the previous tracing performed at this institution 03/10/2023 sinus rhythm has replaced atrial fibrillation the ventricular rate has decreased by 86 bpm
[2023-05-28] MEDS: pyRIDostigmine bromide 60 MG TAB PO SCH (20:04)
[2023-05-28] MEDS: APIXABAN 5 MG TABLET PO SCH (20:04)
[2023-05-28] MEDS ORDERED: PRAVASTATIN SOD 40 MG TAB PO SCH (21:00)
[2023-05-28] MEDS ORDERED: ATROPINE SULFATE 0.1 MG/ML 10ML SYR IV PRN (22:30)
[2023-05-29 07:25] LABS: Troponin I High Sensitivity 3.5 pg/ml (0-20)
[2023-05-29 07:59] LABS: Basophils # (auto) 0.03 K/uL (0-0.2); Basophils % (auto) 0.6 %; Eosinophils % (auto) 1.8 %; Hematocrit (blood only) 42.2 % (42.0-52.0); Hemoglobin 13.7 g/dl (14.0-18.0); Immature Granulocytes # (auto) 0.01 K/uL (0.01-0.20); Immature Granulocytes % (auto) 0.2 %; Lymphocytes # (auto) 1.47 K/uL (1.2-3.4); Lymphocytes % (auto) 27.1 %; Mean Corpuscular Hemoglobin 30.2 pg (25.0-34.0); Mean Corpuscular Hgb Conc 32.5 g/dL (32.0-36.0); Mean Corpuscular Volume 93.2 fL (80.0-100.0); Mean Platelet Volume 11.2 fL (9.4-12.4); Monocytes # (auto) 0.79 K/uL (0.11-0.59); Monocytes % (auto) 14.5 %; Neutrophils # (auto) 3.03 K/uL (1.40-6.50); Neutrophils % (auto) 55.8 %; Platelet Count 141 K/uL (130-400); RDW Coefficient of Variation 14.3 % (11.5-14.5); RDW Standard Deviation 49.1 fL (36.4-46.3); Red Blood Count 4.53 M/uL (4.70-6.10); White Blood Count 5.43 K/ul (4.8-10.8)
--- NOTE | 2023-05-29 08:30 | Electrocardiogram Report ---
Test Reason : Blood Pressure : / mmHG Vent. Rate : 046 BPM Atrial Rate : 046 BPM P-R Int : 168 ms QRS Dur : 092 ms QT Int : 416 ms P-R-T Axes : -06 -67 050 degrees QTc Int : 364 ms Sinus bradycardia Left anterior fascicular block Borderline ECG When compared with ECG of 10-MAR-2023 16:36, Sinus rhythm has replaced Atrial fibrillation Vent. rate has decreased BY 86 BPM Confirmed by Hua Abbott ([id number]) on 05/29/2023 8:29:43 AM Referred By: REFERRED SELF Confirmed By:Hua Abbott
--- NOTE | 2023-05-29 08:31 | Electrocardiogram Report ---
Test Reason : Blood Pressure : / mmHG Vent. Rate : 045 BPM Atrial Rate : 045 BPM P-R Int : 174 ms QRS Dur : 096 ms QT Int : 404 ms P-R-T Axes : 081 -55 029 degrees QTc Int : 349 ms Sinus bradycardia with sinus arrhythmia Left axis deviation Pulmonary disease pattern Diffuse Nonspecific T wave abnormality Abnormal ECG When compared with ECG of 28-MAY-2023 11:27, No significant change was found Confirmed by Hua Abbtot ([id number]) on 05/29/2023 8:30:58 AM Referred By: REFERRED SELF Confirmed By:Hua Abbott
[2023-05-29] MEDS: APIXABAN 5 MG TABLET PO SCH (08:43)
[2023-05-29] MEDS: pyRIDostigmine bromide 60 MG TAB PO SCH (08:48)
[2023-05-29] MEDS ORDERED: VIBEGRON 75 MG TAB PO SCH (09:00)
[2023-05-29] MEDS ORDERED: CYANOCOBALAMIN (B-12) 500 MCG TABLET PO SCH (09:00)
[2023-05-29] MEDS ORDERED: LOSARTAN POTASSIUM 50 MG TAB PO SCH (09:00)
[2023-05-29] MEDS ORDERED: METOPROLOL SUCC 25MG EXT REL TAB PO SCH (09:00)
[2023-05-29] MEDS ORDERED: AMIODARONE 200 MG TAB PO SCH (09:00)
[2023-05-29 09:12] LABS: Albumin Level 3.6 gm/dl (3.4-5.0); Bilirubin,Total 1.8 mg/dl (0.2-1.0); Calcium 8.5 mg/dl (8.6-10.3); Magnesium 1.8 mg/dl (1.7-2.4); Potassium 3.8 mmol/L (3.5-5.1)
[2023-05-29 09:18] LABS: Albumin Globulin Ratio 1.3 (0.9-2); BUN Creatinine Ratio 15.6 (10-20); Creatinine Clr Calc Pharmacy 69.4 ml/min; Est GFR (African American) 86.2 ml/min; Est GFR (Non-African American) 74.4 ml/min; Globulin 2.7 gm/dl (2.5-4.0); Total Protein 6.3 gm/dl (6.0-8.3)
--- NOTE | 2023-05-29 11:02 | Cardiology Progress Note ---
Date of Service May 29, 2023 Assessment & Plan (1) Symptomatic bradycardia: (2) Atrial fibrillation: Plan: Most recent EKG performed this morning 05/29/2023 at 3 AM revealed sinus bradycardia with sinus arrhythmia at 45 bpm. Diffuse nonspecific T wave abnormalities noted. At the time of previous admission in January, he reverted from atrial fibrillation with rapid ventricular response to sinus rhythm after receiving diltiazem and amiodarone. At that time he was discharged with EKG revealing sinus bradycardia 55 bpm on amiodarone 200 mg twice daily and no other AV jam blocking medications. He returns having had recent cardioversion performed in [place] and presented on amiodarone 200 mg once per day, metoprolol succinate 25 mg daily and Cardizem CD 120 mg daily. At present I recommend discharge on amiodarone 200 mg 1 time per day and metoprolol succinate 25 mg daily with Cardizem CD 120 mg daily discontinued. Future considerations include discontinuation of metoprolol as this is a medication that is often times avoided in the setting of myasthenia gravis and continuing amiodarone alone. Patient tolerating Eliquis thus far, having previously not been on anticoagulation due to history of fall with support dural hematoma in 2021. Work-up had been initiated in [place] back in October with regards to watchman percutaneous left atrial appendage device, but this was postponed/canceled in the setting of urosepsis and need for ureter stent in October 2022. As he stated at the time of his previous admission, he prefers to maintain his outpatient follow-up with his [facility] primary care provider and cardiology in [place]. Would recommend cardiology follow-up which is likely already scheduled since he just had an outpatient cardioversion. I think it is premature to consider pacemaker at this time. Would recommend reassessment of his heart rates and potential left atrial appendage occlusion device. Although the patient's most recent blood pressure measurement is elevated at 185/81, that was before he received his morning medications including metoprolol and losartan. Has other recent readings have been relatively well controlled overnight last night. Case discussed with Dr. Wolff for the purpose of coordination of care. Admission and Anticipated Discharge Date Admission Date: May 28, 2023 Subjective Patient seen in cardiology follow-up. Feeling well. Heart rate improved on telemetry, sinus bradycardia at 56 bpm this morning while sitting in the bedside chair. Rate ranged from 30 beats to 50 bpm while sleeping last night. Results & Data Vital Signs (Past 12 Hours) Vital Signs Temp Pulse Pulse Resp BP Pulse Ox O2 Del Method 05/29/23 07:50 36.4 C L 52 L 18 185/81 H 97 Room Air 05/29/23 02:48 36.5 C 45 L 16 151/78 H 97 Room Air 05/29/23 00:03 40 L 05/28/23 23:42 36.3 C L 42 L 16 151/77 H 96 Room Air Laboratory Results Cardiac Enzymes 05/28/23 05/29/23 Range/Units 11:53 06:35 AST 19 35 (13-39) U/L Troponin I High Sens < 2.3 3.5 (0-20) pg/ml Coagulation 05/28/23 Range/Units 11:53 PT 12.3 H (9.0-12.0) Seconds CBC 05/28/23 05/29/23 Range/Units 11:53 06:35 WBC 6.49 5.43 (4.8-10.8) K/ul RBC 4.31 L 4.53 L (4.70-6.10) M/uL Hgb 13.2 L 13.7 L (14.0-18.0) g/dl Hct 40.7 L 42.2 (42.0-52.0) % Plt Count 158 141 (130-400) K/uL Neut # (Auto) 4.39 3.03 (1.40-6.50) K/uL Lymph # (Auto) 1.27 1.47 (1.2-3.4) K/uL [place] # (Auto) 0.72 H 0.79 H (0.11-0.59) K/uL Eos # (Auto) 0.06 0.10 (0-0.50) K/uL Baso # (Auto) 0.04 0.03 (0-0.2) K/uL Comprehensive Metabolic Panel 05/28/23 05/29/23 Range/Units 11:53 06:35 Sodium 142 141 (136-145) mmol/L Potassium 3.9 3.8 (3.5-5.1) mmol/L Chloride 112 H 111 H (98-107) mmol/L Carbon Dioxide 23 21 (21-32) mmol/L BUN 20 15 (6-23) mg/dl Creatinine 1.05 0.96 (0.6-1.4) mg/dl Glucose 103 H 83 (70-99(Fasting)) mg/dl Calcium 8.6 8.5 L (8.6-10.3) mg/dl AST 19 35 (13-39) U/L ALT 10 14 (7-52) U/L Alkaline Phosphatase 45 51 (34-104) U/L Total Protein 6.3 6.3 (6.0-8.3) gm/dl Albumin 3.8 3.6 (3.4-5.0) gm/dl Intake and Output 05/28/23 05/29/23 05/29/23 22:59 06:59 14:59 Intake Total 350 / 700 100 / 700 100 / 100 Output Total 175 / 175 Balance 350 / 700 100 / 700 -75 / -75 Intake: Oral 350 / 450 100 / 450 100 / 100 Output: Urine 175 / 175 Other: # Unmeasured Voids 2 2 Weight 90.3 kg 90.3 kg Weight Measurement Method Standing Scale Built in [facility]
--- NOTE | 2023-05-29 14:48 | Discharge Summary ---
Date of Service May 29, 2023 Admission HPI Per Admitting Provider History obtained from chart review and interview with the patient. Past medical history of paroxysmal A-fib with recent cardioversion as per patient (on amiodarone, metoprolol, Cardizem; anticoagulated with Eliquis), m yasthenia gravis, hypertension, hyperlipidemia, type 2 diabetes mellitus. Patient reports fatigue and tiredness for the last 4 days. He measures his blood pressure and heart rate every day in the morning; noticed that his heart rate was in 40s since last 4 days. He denies dizziness, chest pain or increasing shortness of breath. Denies fever, chills, abdominal pain or urinary symptoms. He reports that he had undergone DOMINIQUE with cardioversion 2 weeks back. He took all of his medications today morning at 8 AM. He reports that he will be undergoing Watchman device procedure at the end of the year. He lives with his ; walks with the help of a cane. On presentation to the ED, he was found to be slightly hypotensive with blood pressure of 106/54. He was afebrile and saturating well on room air. EKG shows sinus bradycardia with PAC. No leukocytosis. Potassium3.9. TSH slightly elevated with normal free T4. Patient to be admitted to telemetry for further observation Past medical history as above Past surgical history; history of left ureteral stent; removed in November 2022. Right carotid endarterectomy, cataract surgery, cholecystectomy, left inguinal hernia repair. Personal history; used to chew tobacco. Non-smoker. Does not drink alcohol. Admission Exam Per Admitting Provider Constitutional: Awake alert oriented x3. Not in distress. Head: Normocephalic, Atraumatic Eyes: Left eye ptosis ENMT: external ear and nose normal, oropharynx normal Neck: trachea midline, no thyromegaly normal visual inspection Respiratory: normal respiratory effort, lungs clear to auscultation, no wheeze, rales, rhonchi. Normal insp/exp effort, no accessory muscle use Cardiovascular: Regular, S1-S2 heard Chest: normal inspection of chest Abdomen: normal bowel sounds, soft, nontender, no hepatosplenomegaly Musculoskeletal: no cyanosis or clubbing, extremities motor strength 5/5. 1+ pitting edema present. Skin: no rashes, warm and dry normal turgor Neurologic: PERRL, EOMI, accommodation nl, no face palsy, no dysarthria CN's II- XI intact bilaterally and moves all extremities Psychiatric: A+Ox3, euthymic affect Principal Diagnosis Symptomatic bradycardia Discharge Exam Constitutional: Awake alert oriented x3. Not in distress. Respiratory: normal respiratory effort, lungs clear to auscultation, no wheeze, rales, rhonchi. Normal insp/exp effort, no accessory muscle use Cardiovascular: Regular, S1-S2 heard Chest: normal inspection of chest Abdomen: normal bowel sounds, soft, nontender, no hepatosplenomegaly Musculoskeletal: no cyanosis or clubbing, extremities motor strength 5/5. 1+ pitting edema present. Skin: no rashes, warm and dry normal turgor Neurologic: PERRL, EOMI, accommodation nl, no face palsy, no dysarthria CN's II- XI intact bilaterally and moves all extremities Psychiatric: A+Ox3, euthymic affect Discharge Data Allergies Allergy/AdvReac Type Severity Reaction Status Date / Time felodipine Allergy Intermediate hives Verified 05/10/23 12:51 flunisolide Allergy Unknown other Verified 05/10/23 12:51 gabapentin AdvReac Intermediate GI SYMPTOMS Verified 05/10/23 12:51 Thiazides AdvReac Intermediate CAUSED GOUT Verified 05/10/23 12:51 Consultations 05/28/23 14:01 ED Decision to Admit Stat 05/28/23 14:36 Consult Cardiology Routine Hospital Course (1) Symptomatic bradycardia: Past medical history of paroxysmal A-fib with recent cardioversion as per patient (on amiodarone, metoprolol, Cardizem; anticoagulated with Eliquis), Recent history of DOMINIQUE status post cardioversion for A-fib to be expected Presented with fatigue and tiredness for 4 days along with bradycardia. EKG shows sinus bradycardia with PAC. No leukocytosis. Potassium3.9. TSH slightly elevated with normal free T4.; Consistent with subclinical hypothyroidism. During the hospitalization, cardiology was consulted for comanagement. Cardizem was stopped. Patient was monitored on telemetry. Overnight, patient was sinus bradycardic with HR in 50s with no significant pauses or arrhythmias. Patient was recommended to continue metoprolol and amiodarone. Please note the above document was generated using voice recognition software. It may contain grammatical, syntax or spelling errors. Any formal questions or concerns about the content, text or information contained within the body of this dictation should be directly addressed to the provider for clarification Total Time Total Time Spent Total Time Spent (In Minutes): 35 Total Time Includes: Examination of the Patient, Discharge Planning, Medication Reconciliation, Communication With Other Providers and Other Discharge Plan Discharge Items Patient Disposition: Home - Self-Care Reason For Visit: SYMPTOMATIC BRADYCARDIA Discharge Diagnosis: Symptomatic bradycardia Activity: Resume your previous activity Non-emergency contact: Primary Care Provider Call non-emergency contact if: you have any medication questions and your symptoms worsen Follow-up/Referrals: Juan Dominique MD [Primary Care Provider] - ([facility] with an appointment ) Diet: Regular Addtl Attending Provider Instructions: You were admitted to the hospital with low heart rate. The likely cause for the low heart rate was due to Cardizem. Please stop taking it. Please continue to take all your other medication. 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 Pending Studies at Discharge: No Stand-Alone Forms: [facility] [employer], Smoking Cessation Medications and DC Order Prescriptions: Continued metoprolol succinate 25 mg tablet extended release 24 hr 25 mg PO DAILY Eliquis 5 mg tablet 5 mg PO BID pyridostigmine bromide [Mestinon] 60 mg Tablet 60 mg PO TID pravastatin 40 mg Tablet 40 mg PO HS cyanocobalamin (vitamin B-12) 1,000 mcg Tablet 1,000 mcg PO QAM acetaminophen [Tylenol] 325 mg Capsule 650 mg PO QID PRN (Reason: Pain) losartan 50 mg Tablet 50 mg PO DAILY Myrbetriq 50 mg Tablet Extended Release 24 Hr 50 mg PO DAILY amiodarone 200 mg Tablet 200 mg PO DAILY Discontinued diltiazem HCl 120 mg Capsule,Extended Release 24 Hr 120 mg PO DAILY Discharge Orders: Discharge Order (Routine); Ordered 05/29/23 Ordered By: Ezequiel Wolff Admission Data Admit Date/Time: 05/28/23 14:36 Attending Provider: Ezequiel Wolff Admit Provider: Ezequiel Wolff Primary Care Provider: Juan Dominique Other Providers: Porsha Saravia ; Sanchez Mcneil ; David Aguila ; oJaquim Laguna ; Manuel Pedro ; River Cooley ; Amie Ramesh ; Delmy Gonzales ; Porsha Gracia ; Davon Rosario ; Wayne Cunningham ; Ezequiel Wolff ; [facility] Other Interventions: Discharge Summary Assessment (RN) Last Done: 05/29/23 11:59
== END 2023-05-29 13:07 | disposition home or self-care (01) ==
LOC: ED 11:17 → 2S 11:17

== ENCOUNTER 2023-11-26 01:34 | Inpatient (IN) ==
--- OUTSIDE RECORDS SUMMARY | 2023-11-26 01:37 | External Medical Summary | Summary of Care ---
Author Name Unknown Organization [facility] [address] [address] Phone [phone] Care Team Providers Care Doughmaker Name Role Phone Juan Dominique MD Primary Care Pr ovider Reason for Visit * Auth/Cert Specialty Diagnoses / Procedures Referred By Javid kendrick Referred To Contact Diagnoses Dysphagia, unspecified type Myasthenia gravis (HCC) Diarrhea, unspecified type Dysphagia, unspecified type [R13.10] Myasthenia gravis (HCC) [G70.00] Diarrhea, unspecified type [R19.7] Procedures EGD, FLEXIBLE, DIAGNOSTIC ESOPHAGOGASTRODUODENOSCOPY (EGD), FLEXIBLE, TRANSORAL, DIAGNOSTIC Referral ID Status Reason Start Date Expiration Date Visits Re quested Visits Authorized [id number] Encounter Details Date Type Department Care Team (Latest Contact Info) Description 10/27/2023 9:17 AM EST - 10/27/2023 11:04 AM EST Hospital Encounter ENDO [facility], Endoscopy Room [facility] [address] [facility] [place] [id number] Ameena Pascual MD [address] [place] [address] [place] [id number] Upper GI Endoscopy Discharge Disposition: Home - Self Care Allergies Active Allergy Reactions Criticality Noted Date Comments Felodipine High 11/15/2012 Other Reaction(s): hives Flunisolide 11/15/2012 Other Reaction(s): other Gabapentin High 07/16/2013 Other Reaction(s): Drowsy, GI SYMPTOMS Hydrochlorothiazide W-Triamterene 11/15/2012 Thiazide-Type Diuretics 07/21/2004 gout documented as of this encounter (statuses as of 10/27/2023) Medications Medication Sig Dispensed Refills Start Date End Date Status Pyridostigmine Hobart 60 MG Oral Tablet (Mestinon) Take 0.5 Tablets by mouth in the morning and 0.5 Tablets at noon and 0.5 Tablets before bedtime. 0 Active Acetaminophen 325 MG Oral Tablet (Tylenol) Take 1 Tablet by mouth every 6 hours as needed for Fever >38C(100.5F) or Pain, Moderate. 0 Active amLODIPine Besylate 5 MG Oral Tablet (Norvasc) Take 1 Tablet by mouth in the morning and 1 Tablet before bedtime. 0 Active Cyanocobalamin 1000 MCG Oral Tablet (Cyanocobalamin) Take 1 Tablet by mouth in the morning. 0 Active Diclofenac Sodium 1 % External Cream Apply topically as needed to elbow for pain. 0 Active Losartan Potassium 50 MG Oral Tablet (Cozaar) Take 1 Tablet by mouth in the morning. 0 Active Pravastatin Sodium 40 MG Oral Tablet (Pravachol) Take 1 Tablet by mouth every evening. 0 Active Amiodarone HCl 200 MG Oral Tablet (Cordarone) Take 1 Tablet by mouth in the morning. 0 04/12/2023 Active Aspirin 81 MG Oral Tablet Chewable 1 Tablet. 0 09/15/2023 Active Clopidogrel Bisulfate 75 MG Oral Tablet (pLAVix) Take 1 Tablet by mouth in the morning. 0 09/18/2023 Active Benzonatate 100 MG Oral Capsule (Tessalon Perles) 1 Capsule. 0 09/20/2023 Active Potassium Citrate ER 10 MEQ (1080 MG) Oral Tablet Extended Release (Urocit-K) 1 Tablet. 0 07/26/2023 Active pyRIDostigmine Hobart ER 180 MG Oral Tablet Extended Release (Mestinon Timespan) Take 1 Tablet by mouth in the morning. 0 Active Vitamin D (Ergocalciferol) 1.25 MG (92504 UT) Oral Capsule (Drisdol) Take 1 Capsule by mouth once a week. 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 Overview: ICD-10 update of inactive term History of peptic ulcer disease Overview: ICD-10 update of inactive term GENERAL OSTEOARTHROSIS Major depressive disorder Overview: ICD-10 update of inactive term BENIGN HYPERTENSION PURE HYPERCHOLESTEROLEM documented as of this encounter (statuses as of 10/27/2023) Immunizations Name Administration Dates Next Due Seasonal Influenza, Quadrivalent Hd (Fluzone Hd) 09/06/2023 documented as of this encounter Social History Tobacco Use Types Packs/Day Years Used Date Smoking Tobacco: Never Smokeless Tobacco: Current Snuff Comments:2 cans per week Alcohol Use Standard Drinks/Week Comments Not Currently 0 (1 standard drink = 0.6 oz pure alcohol) 2 beers a day quit 2014, drinking near beer Sex and Gender Information Value Date Recorded Sex Assigned at Not on file Gender Identity Not on file Sexual Orientation Not on file Job Start Date Occupation Industry Not on file Not on file Not on file documented as of this encounter Last Filed Vital Signs Vital Sign Reading Time Taken Comments Blood Pressure 100/45 10/27/2023 10:44 AM EST Pulse 48 10/27/2023 10:44 AM EST Temperature 36.2 C (97.1 F) 10/27/2023 10:[address] Respiratory Rate 16 10/27/2023 10:44 AM EST Oxygen Saturation 100% 10/27/2023 10:44 AM EST Inhaled Oxygen Concentration - - Weight 94.3 kg (208 lb) 10/19/2023 2:55 PM EST Height 173 cm (5' 8.11") 10/19/2023 2:55 PM EST Body Mass Index 31.52 10/19/2023 2:55 PM EST documented in this encounter Functional Status Functional Status Response Date of Assess ment Are you deaf or do you have serious difficulty h earing? No 12/23/2021 Are you blind or do you have serious difficulty seeing, even when wearing glasses? No 12/23/2021 Do you have serious difficul ty walking or climbing stairs? (5 years old or older) Yes 12/23/2021 Do you have difficulty dress ing or bathing? (5 years old or older) No 12/23/2021 Because of a physical, menta l, or emotional condition, do you have difficulty doing errands alone such as visiting a doctor s office or shopping? (15 years old or older) No 12/23/19 Cognitive Status Response Date of Assessm ent Because of a physical, menta l, or emotional condition, do you have serious difficulty concentrating, remembering, or making decisions? (5 years old or older) No 12/23/2021 documented as of this encounter H&P Notes * Ameena Pascual MD - 10/27/2023 9:54 AM EST Endoscopy Pre-Procedure Assessment Name: Vasyl Huizar Date: 10/27/2023 Time: 9:54 AM Procedure(s): Upper GI Endoscopy; with Indication(s) of dysphagia or odynophagia Endoscopy Pre-Procedure Assessment: Prior to the procedure, the patient is identified. The patient's history, medications and allergieshave been reviewed. The patient is competent. The risks and benefits of the proposed procedure and the planned sedation have been discussed with the patient. All questions have been answered and informed consent for the procedure has been obtained. Prior to Admission medications Medication Sig Last Dose Discont. Amiodarone HCl 200 MG Oral Tablet (Cordarone) Take 1 Tablet by mouth in the morning. 10/27/2023 Aspirin 81 MG Oral Tablet Chewable 1 Tablet. 10/26/2023 Clopidogrel Bisulfate 75 MG Oral Tablet (pLAVix) Take 1 Tablet by mouth in the morning. 10/20/2023 Potassium Citrate ER 10 MEQ (1080 MG) Oral Tablet Extended Release (Urocit-K) 1 Tablet. 10/26/2023 pyRIDostigmine Hobart ER 180 MG Oral Tablet Extended Release (Mestinon Timespan) Take 1 Tablet by mouth in the morning. Past Week Vitamin D (Ergocalciferol) 1.25 MG (99167 UT) Oral Capsule (Drisdol) Take 1 Capsule by mouth once aweek. 10/23/2023 Acetaminophen 325 MG Oral Tablet (Tylenol) Take 1 Tablet by mouth every 6 hours as needed for Fever>38C(100.5F) or Pain, Moderate. Past Week amLODIPine Besylate 5 MG Oral Tablet (Norvasc) Take 1 Tablet by mouth in the morning and 1 Tablet before bedtime. 10/27/2023 Cyanocobalamin 1000 MCG Oral Tablet (Cyanocobalamin) Take 1 Tablet by mouth in the morning. 10/26/2023 Losartan Potassium 50 MG Oral Tablet (Cozaar) Take 1 Tablet by mouth in the morning. 10/26/2023 Pravastatin Sodium 40 MG Oral Tablet (Pravachol) Take 1 Tablet by mouth every evening. Past Week Pyridostigmine Hobart 60 MG Oral Tablet (Mestinon) Take 0.5 Tablets by mouth in the morning and 0.5 Tablets at noon and 0.5 Tablets before bedtime. 10/27/2023 Benzonatate 100 MG Oral Capsule (Tessalon Perles) 1 Capsule. Patient not taking: Reported on 10/19/2023 Not Taking Diclofenac Sodium 1 % External Cream Apply topically as needed to elbow for pain. Patient not taking: Reported on 10/05/2023 Not Taking Review of patient's allergies indicates: Allergen Reactions Felodipine Other Reaction(s): hives Gabapentin Other Reaction(s): Drowsy, GI SYMPTOMS Flunisolide Other Reaction(s): other Hydrochlorothiazide W-Triamterene Thiazide-Type Diuretics gout BP 122/77 | Pulse 51 | Temp 36.3 C (97.3 F) (Tympanic) | Resp 16 | Ht 1.73 m (5' 8.11") | Wt 94.3 kg (208 lb) | SpO2 100% | BMI 31.52 kg/m | BSA 2.13 m Physical Exam: Mental Status Examination: alert and oriented. Resp: normal ASA Grade: II - A patient with mild systemic disease. Abdomen: soft This patient has undergone a preprocedural evaluation. A determination has been made to proceed with the planned procedure under [facility] procedural guidelines and the [facility] Non-Emergent, Elective Medical Services and Treatment Recommendations (published on 02-11-20). The community and hospital prevalence of COVID-19 has been discussed as well as this patient's specific risks associated with SARS-CoV-19 infection. Based upon the clinical acuity and patient-specific care considerations, this procedure is deemed a Tier III - Procedures at little or no risk for clinical deterioration (example - cosmetic). After reviewing the risks and benefits of endoscopy including infection, bleeding, perforation, missed lesions, the patient is deemed in satisfactory condition to undergo the procedure. The anesthesia plan is to use general anesthesia. Ameena Pascual MD 10/27/2023 documented in this encounter Procedure Notes * Fiorella Jeffrey CRNP - 10/27/2023 9:32 AM ESTAssociated Order(s): UPPER GI ENDOSCOPY [facility] Patient Name: Vasyl Huizar Procedure Date: 10/27/2023 9:32 AM Date of : 1940 Admit Type: Outpatient Note Status: Finalized Date of : 1940 Admit Type: Outpatient Age: 83 Room: [facility] 3 Gender: Male Note Status: Finalized Procedure: Upper GI endoscopy Indications: Dysphagia Providers: Ameena Pascual MD (Doctor), Shaka Bond RN Referring MD: Fiorella Jeffrey Medicines: See the Anesthesia note for documentation of the administered medications Complications: No immediate complications. Procedure: Pre-Anesthesia Assessment: - Patient identification and proposed procedure were verified prior to the procedure by the physician, the nurse and the anesthesiologist. The procedure was verified in the pre-procedure area. - Prior to the procedure, a History and Physical was performed, and patient medications, allergies and sensitivities were reviewed. The patient's tolerance of previous anesthesia was reviewed. - The risks and benefits of the procedure and the sedation options and risks were discussed with the patient. All questions were answered and informed consent was obtained. - The medication list for this patient has been reviewed prior to the procedure and has been determined that the patient may proceed with the planned study. Any medication changes made as a result of the findings of this procedure have been discussed with the patient and/or community relations representative at the time of discharge from the department. - After obtaining informed consent, the endoscope was passed under direct vision. All instruments were visually inspected immediately before and after removal from the patient to ensure they are fully intact. Throughout the procedure, the patient's blood pressure, pulse, and oxygen saturations were monitored continuously. The GIF-H180 Endoscope ([id number]) was introduced through the mouth, and advanced to the second part of duodenum. The upper GI endoscopy was accomplished without difficulty. The patient tolerated the procedure well. Findings & Specimens: The examined esophagus appeared normal - no overt narrowing or stricture was noted. A guidewire was placed and the scope was withdrawn. An empiric dilation was performed with a Savary dilator with mild resistance at 48 Fr. The dilation site was examined following endoscope reinsertion and showed minimal change. Biopsies were taken from the distal and proximal esophagus with a cold forceps for histology. The pathology specimens were placed into Bottles 1 and 2. Verification of patient identification for the specimen was done by the physician and nurse using the patient's name and medical record number. The Z-line appeared regular. The examined stomach appeared normal. The duodenal bulb and second portion of the duodenum appeared normal. Impression: - Normal esophagus. Dilated. Biopsied. - Z-line regular. - Normal stomach. - Normal duodenal bulb and second portion of the duodenum. Recommendation: - Await pathology results. - Resume Plavix as he normally takes it. Ameena Pascual MD 10/27/2023 10:13:21 AM This report has been signed electronically. documented in this encounter Nursing Notes * Joelle Mayo RN - 10/27/2023 11:00 AM EST Patient is alert, pain free and tolerating po fluids prior to discharge. Patient has been visited by Dr. Pascual. Patient and pt's son in [facility] have received and demonstrated understanding of discharge instructions. Patient is transported via w/c to private auto accompanied by endo staff into son in [facility]'s care. * Joelle Mayo RN - 10/27/2023 10:48 AM EST Procedure findings and d/c instructions reviewed w/ pt and pt's son in law. Copies given. Verbalized understanding. VSS. Monitor d/c'd. Assisted pt to dress at the bedside. * Joelle Mayo RN - 10/27/2023 10:21 AM EST HOB upright. Lina liquids w/o problems. Pt's son in law at bedside. Dr Pascual in to speak w/ the pt and son in law regarding procedure findings. * Joelle Mayo RN - 10/27/2023 10:16 AM EST Pt received in recovery lying on L side w/ HOB elevated. Abd soft. VSS. Call olvera in reach. * Tk Bond RN - 10/27/2023 10:12 AM EST See anesthesia record for medication administered during procedure. Tk Bond RN Pre cleaning of scope at the bedside started by imaging tech. * Ileana Sierra RN - 10/27/2023 9:47 AM EST Patient prepped and ready for anesthesia to assess. Call olvera in reach, bed locked. documented in this encounter Plan of Treatment Pending Results Name Type Priority Associated Diagnoses Date /Time SURGICAL PATHOLOGY Pathology Routine Dysphagia, unspecified type Myasthenia gravis (HCC) Diarrhea, unspecified type 10/27/2023 10:11 AM EST Scheduled Orders Name Type Priority Associated Diagnoses Orde r Schedule SURGICAL PATHOLOGY Pathology Routine Dysphagia, unspecified type Myasthenia gravis (HCC) Diarrhea, unspecified type Release Upon Ordering for 1 Occurrences starting 10/27/2023, 1 completed Scheduled Procedures Name Priority Associated Diagnoses Date/Ti me ESOPHAGOGASTRODUODENOSCOPY ( EGD), FLEXIBLE, TRANSORAL, DIAGNOSTIC Dysphagia, unspecified type Myasthenia gravis (HCC) Diarrhea, unspecified type 10/27/2023 10:00 AM EST Health Maintenance Due Date Last Done Comments Depression Screening 1954 Albumin/Creatinine Ratio 1960 Zoster Vaccines (1 of 2) 1992 Hepatitis B (1 of 3 - Risk 3-dose series) 2002 COVID-19 Vaccine (2 - season) 2023 05/14/2021 GFR 05/29/2024 05/29/2023, 05/07, 12/25/2021, Additional history exists DTaP,Tdap,and Td Vaccines (2 - Td or Tdap) 02/21/2026 02/22/2016 Pneumococcal Vaccine: 65+ Years Completed 11/06/2017, 11/25/2016, 01/07/2008 Influenza Vaccine (FLU shot) Completed 11/2022, 08/13/2019, 10/09/2018, Additional history exists GARDASIL-HPV IMMUNIZATION SERIES Aged Out No longer eligible based on patient's age to complete this topic MENINGOCOCCAL (MENACTRA/MENVEO) Aged Out No longer eligible based on patient's age to complete this topic documented as of this encounter Medical Devices Not on filedocumented as of this encounter Procedures Procedure Name Priority Date/Time Associated Diagnosis Comments UPPER GI ENDOSCOPY 10/27/2023 9: 32 AM EST documented in this encounter Results * UPPER GI ENDOSCOPY (10/27/2023 9:32 AM EST) 10/27/2023 9:32 AM EST Narrative Procedure Note Fiorella Jeffrey CRNP - 10/27/2023 9:32 AM EST [facility] Patient Name: Vasyl Huizar Procedure Date: 10/27/2023 9:32 AM Date of : 1940 Admit Type: Outpatient Note Status:Finalized Date of : 1940 Admit Type: Outpatient Age: 83 Room: [facility] 3 Gender: Male Note Status: Finalized Procedure: Upper GI endoscopy Indications: Dysphagia Providers: Ameena Pascual MD (Doctor), Shaka Bond RN Referring MD: Fiorella Jeffrey Medicines: See the Anesthesia note for documentation of theadministered medications Complications: No immediate complications. Procedure: Pre-Anesthesia Assessment: - Patient identification and proposed procedurewere verified prior to the procedure by the physician, the nurse and theanesthesiologist. The procedure was verified in the pre-procedure area. - Prior to the procedure, a History and Physicalwas performed, and patient medications, allergies and sensitivities werereviewed. The patient's tolerance of previous anesthesia was reviewed. - The risks and benefits of the procedure and thesedation options and risks were discussed with the patient. All questions wereanswered and informed consent was obtained. - The medication list for this patient has beenreviewed prior to the procedure and has been determined that the patient may proceed with the plannedstudy. Any medication changes made as a result of the findings of this procedure have beendiscussed with the patient and/or community relations representative at the time of discharge from thedepartment. - After obtaining informed consent, the endoscopewas passed under direct vision. All instruments were visually inspected immediatelybefore and after removal from the patient to ensure they are fully intact. Throughout the procedure, the patient's bloodpressure, pulse, and oxygen saturations were monitored continuously. The GIF-H180 Endoscope([id number]) was introduced through the mouth, and advanced to the second part ofduodenum. The upper GI endoscopy was accomplished without difficulty. The patienttolerated the procedure well. Findings & Specimens: The examined esophagus appeared normal - no overt narrowing orstricture was noted. A guidewire was placed and the scope was withdrawn. An empiric dilation was performedwith a Savary dilator with mild resistance at 48 Fr. The dilation site was examined followingendoscope reinsertion and showed minimal change. Biopsies were taken from the distal and proximal esophaguswith a cold forceps for histology. The pathology specimens were placed into Bottles 1 and 2.Verification of patient identification for the specimen was done by the physician and nurse using the patient'sname and medical record number. The Z-line appeared regular. The examined stomach appeared normal. The duodenal bulb and second portion of the duodenum appearednormal. Impression: - Normal esophagus. Dilated. Biopsied. - Z-line regular. - Normal stomach. - Normal duodenal bulb and second portion of theduodenum. Recommendation: - Await pathology results. - Resume Plavix as he normally takes it. Ameena Pascual MD 10/27/2023 10:13:21 AM This report has been signed electronically. Fiorella Loscott SAXENA GASTRO U PPER documented in this encounter Visit Diagnoses Diagnosis Dysphagia, unspecified type Myasthenia gravis (HCC) Myasthenia gravis without exacerbation Diarrhea, unspecified type documented in this encounter Administered Medications Inactive Administered Medications - up to 3 most recent administrations Medication Order MAR Action Action Date Dose Rate Site isolyte-S pH 7.4 infusion Intravenous, at 100 mL/hr, Plasma-LYTE 148, isolyte-S, and isolyte-S pH 7.4 are considered equivalent - including for MAR barcode scanning., CONTINUOUS, Starting on Mon10/27/23 at 1015, Until Mon10/27/23 at 1504, Pre-Op Continue from Pre-Op 10/27/2023 9:47 AM EST 100 mL/hr New Bag 10/27/2023 9:47 AM EST 100 mL/hr documented in this encounter Active and Recently Administered Medications Times are shown in EST. Continuous Medication Order 10/25/2023 10/26/2023 10/27/2023 isolyte-S pH 7.4 infusion Intravenous, at 100 mL/hr, Plasma-LYTE 148, isolyte-S, and isolyte-S pH 7.4 are considered equivalent - including for MAR barcode scanning., CONTINUOUS, Starting on Mon10/27/23 at 1015, Until Mon10/27/23 at 1504, Pre-Op 0947 (New Bag - Prov ider: Ileana Sierra RN)0947 (Continue from Pre-Op - Provider: Reg Bills CRNA)1015 (Stopped - Provider: Reg Bills CRNA) documented in this encounter Advance Directives Latest Code Status on File Code Status Date Activated Date Inactivated Comments Full Code 12/23/2021 10:34 AM 12/25/2021 6:35 PM This order reflects the patients wishes and were consensually agreed upon. Question Answer Comments Discussion of Advance Directives occurred with: Patient Care Teams Doughmaker Relationship Specialty Start Date End Date Juan Dominique MD [address] [place] [address] PCP - General Family Medicine 09/26/23 documented as of this encounter
--- OUTSIDE RECORDS SUMMARY | 2023-11-26 01:37 | External Medical Summary | Summary of Care ---
Author Name Unknown Organization [facility] Address [address] [place] [address] Phone [phone] Care Team Providers Care Yoghurt Maker Name Role Phone Juan Dominique MD Primary Care Pr ovider Reason for Visit * Reason Comments NEW PATIENT dysphagia Diarrhea * Evaluate & Treat - Unlimited Visits (Within 30 days (routine)) - Pending Review Specialty Diagnoses / Procedures Referred By Javid kendrick Referred To Contact Gastroenterology Diagnoses Odynophagia Juan Dominique MD [address] [place] [address] [facility] [address] [facility] [place] [address] Referral ID Status Reason Start Date Expiration Date Visits Requested Visits Authorized [id number] Pending Review Specialty Services Required 3 03/18/[phone] Encounter Details Date Type Department Care Team (Late st Contact Info) Description 10/05/2023 11:00 AM EST Office Visit Gastroenterology, [facility] [address] [facility] [place] [address] Fiorella Jeffrey CRNP [address] [facility] [id number] Dysphagia, unspecified type*; Myasthenia gravis (HCC); Diarrhea, unspecified type Allergies Active Allergy Reactions Criticality Noted Date Comments Felodipine High 11/15/2012 Other Reaction(s): hives Flunisolide 11/15/2012 Other Reaction(s): other Gabapentin High 07/16/2013 Other Reaction(s): Drowsy, GI SYMPTOMS Hydrochlorothiazide W-Triamterene 11/15/2012 Thiazide-Type Diuretics 07/21/2004 gout documented as of this encounter (statuses as of 10/05/2023) Medications Medication Sig Dispensed Refills Start Date End Date Status Pyridostigmine [place] 60 MG Oral Tablet (Mestinon) Take 0.5 [...] (Urocit-K) 1 Tablet. 0 07/26/2023 Active pyRIDostigmine [place] ER 180 MG Oral Tablet Extended Release (Mestinon Timespan) Take 1 Tablet by mouth in the morning. 0 Active Vitamin D (Ergocalciferol) 1.25 MG (95321 UT) Oral Capsule (Drisdol) Take 1 Capsule by mouth once a week. 0 Active metFORMIN HCl 500 MG Oral Tablet (Glucophage) Take by mouth 1 Tablet daily with breakfast . Do not start before December 26, 2021. 0 12/26/2021 10/05/2023 Discontinued (Patient preference/d iscontinuati on) Omeprazole 20 MG Oral Capsule Delayed Release (PriLOSEC)Indica tions:Esophageal reflux one daily for acid stomach 30 Capsule 5 12/25/2021 10/05/2023 Discontinued (Patient preference/d iscontinuati on) documented as of this encounter (statuses as of 10/05/2023) Active Problems Problem Noted Date Diagnosed Date Traumatic subarachnoid hemorrhage 12/23/2021 Fall from standing 12/23/2021 Subarachnoid hemorrhage foll owing injury, no loss of consciousness 12/23/2021 Neck pain 12/23/2021 Irritable bowel syndrome 03/04/2005 BENIGN NEOPLASM LG BOWEL 12/13/2004 Other allergic rhinitis 08/28/2004 Overview: ICD-10 update of inactive term LOC PRIM [id number] 07/23/2003 DIVERTICULOSIS OF COLON 01/22/2003 Gouty arthropathy 05/11/2002 Overview: ICD-10 update of inactive term History of peptic ulcer disease Overview: ICD-10 update of inactive term GENERAL OSTEOARTHROSIS Major depressive disorder Overview: ICD-10 update of inactive term BENIGN HYPERTENSION PURE HYPERCHOLESTEROLEM documented as of this encounter (statuses as of 10/05/2023) Immunizations Name Administration Dates Next Due Seasonal Influenza, Quadrivalent Hd (Fluzone Hd) 09/06/2023 documented as of this encounter Social History Tobacco Use Types Packs/Day Years Used Date Smoking Tobacco: Never Smokeless Tobacco: Current Snuff Tobacco Cessation:Ready to Q uit: Not Asked; Counseling Given: Not Answered Comments:2 cans per week Alcohol Use Standard [...] Sign Reading Time Taken Comments Blood Pressure 128/58 10/05/2023 11:08 AM EST Pulse 53 10/05/2023 11:08 AM EST Temperature 36.6 C (97.9 F) 10/05/2023 11:[address] Respiratory Rate 18 10/05/2023 11:08 AM EST Oxygen Saturation 95% 10/05/2023 11:08 AM EST Inhaled Oxygen Concentration - - Weight 89 kg (196 lb 4.8 oz) 10/05/2023 11:08 AM EST Height 173 cm (5' 8.11") 10/05/2023 11:08 AM EST Body Mass Index 29.75 10/05/2023 11:08 AM EST documented in this encounter Functional Status [...] No 12/23/2021 documented as of this encounter Progress Notes * Fiorella Jeffrey CRNP - 10/05/2023 11:00 AM EST DATE OF SERVICE: 10/05/2023 REFERRING PHYSICIAN: Juan August MD CC: odynophagia, dysphagia, diarrhea Office Visit 10/05/2023 : 82 year old male with history of A-fib (on amiodarone, metoprolol, Cardizem; anticoagulated with Eliquis) now s/p Watchman procedure in 09/28, myasthenia gravis, hypertension, hyperlipidemia, type 2 diabetes mellitus referred for eval of odynophagia at the request of Kezia August MD. Pt was seen and evaluated, chart reviewed. Here with family who aids in history. Since around September has had some UGI symptoms - odynophagia, dysphagia, fullness in his esopahgus. He saw his neurology team and they felt this was related to Myasthenia and to start a bland diet. He notes difficutly tolerating liquids and solids. Sometimes small sips and pills go down okay. Some nausea. Has had emesis, from what he just ate. No GERD. No heartburn. Has also had some issues with loose and greasy stools. No black or bloody stools. EGD: none Colonoscopy 2004: - One 3 mm polyp in the cecum. Resected and retrieved. - One 3 mm polyp in the sigmoid colon. Resected and retrieved. - Diverticulosis. - The exam was otherwise normal to the cecum. 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 The lungs are expanded and grossly clear COLONOSCOPY 12/06/04 tubular adenoma. repeat [address] Rosen REMOVE GALLBLADDER 03/04/93 REPAIR INITIAL INGUINAL HERNIA REDUCIBLE AGE 5 OR MORE SIGMOIDOSCOPY, DIAGNOSTIC 02/25/93 normal VASECTOMY XR ABDOMEN OBSTRUCT SERIES W CHEST 1 VIEW 11/14/01 PAH--Unremarkable with no free air or bowel obstruction and no evidence of masses. There are calcifications of the pelvic basin which statistically are phleboliths Social History Tobacco Use Smoking status: Never Smokeless tobacco: Current Types: Snuff Tobacco comments: 2 cans per week Vaping Use Vaping Use: Never used Substance Use Topics Alcohol use: Not Currently Comment: 2 beers a day quit 2014, drinking near beer Drug use: No Review of patient's allergies indicates: Allergen Reactions Felodipine Other Reaction(s): hives Gabapentin Other Reaction(s): Drowsy, GI SYMPTOMS Flunisolide Other Reaction(s): other Hydrochlorothiazide W-Triamterene Thiazide-Type Diuretics gout Current Outpatient Medications Medication Sig Dispense Refill Pyridostigmine [place] 60 MG Oral Tablet (Mestinon) Take 0.5 Tablets by mouth in the morning and 0.5 Tablets at noon and 0.5 Tablets before bedtime. Acetaminophen 325 MG Oral Tablet (Tylenol) Take 1 Tablet by mouth every 6 hours as needed for Fever>38C(100.5F) or Pain, Moderate. amLODIPine Besylate 5 MG Oral Tablet (Norvasc) Take 1 Tablet by mouth in the morning and 1 Tablet before bedtime. Cyanocobalamin 1000 MCG Oral Tablet (Cyanocobalamin) Take 1 Tablet by mouth in the morning. Losartan Potassium 50 MG Oral Tablet (Cozaar) Take 1 Tablet by mouth in the morning. Pravastatin Sodium 40 MG Oral Tablet (Pravachol) Take 1 Tablet by mouth every evening. Amiodarone HCl 200 MG Oral Tablet (Cordarone) Take 1 Tablet by mouth in the morning. Aspirin 81 MG Oral Tablet Chewable 1 Tablet. Clopidogrel Bisulfate 75 MG Oral Tablet (pLAVix) Take 1 Tablet by mouth in the morning. Benzonatate 100 MG Oral Capsule (Tessalon Perles) 1 Capsule. Potassium Citrate ER 10 MEQ (1080 MG) Oral Tablet Extended Release (Urocit-K) 1 Tablet. pyRIDostigmine [place] ER 180 MG Oral Tablet Extended Release (Mestinon Timespan) Take 1 Tablet by mouth in the morning. Vitamin D (Ergocalciferol) 1.25 MG (25274 UT) Oral Capsule (Drisdol) Take 1 Capsule by mouth once aweek. Diclofenac Sodium 1 % External Cream Apply topically as needed to elbow for pain. (Patient not taking: Reported on 10/05/2023) No current facility-administered medications for this visit. REVIEW OF SYSTEMS: All other findings negative except as noted in HPI. EXAM: BP 128/58 | Pulse 53 | Temp 36.6 C (97.9 F) | Resp 18 | Ht 1.73 m (5' 8.11") | Wt 89 kg (196 lb4.8 oz) | SpO2 95% | BMI 29.75 kg/m | BSA 2.07 m GENERAL: Well developed and well nourished in no acute distress. SKIN: No rashes, ulcers, jaundice or spider angiomata. HEENT: Normocephalic, sclera clear, pharynx normal. NECK: Supple, no lymphadenopathy. LUNGS: Clear to auscultation bilaterally, no respiratory distress or accessory muscles used. HEART: Regular rate & rhythm, no murmurs and no gallops. ABDOMEN: Normal bowel sounds, soft and nontender, no masses or hepatosplenomegaly. EXTREMITIES: No palmar erythema, no ankle edema, no skin discoloration, no clubbing, no cyanosis. NEURO: No lateralizing findings. Sensory/Motor grossly normal. DIAGNOSTIC TEST: Gastrointestinal pathogen panel, stool Clostridium difficile, pcr Fecal fat, qualitative Egd, flexible, diagnostic ASSESSMENT AND PLAN: 82 year old male with history of A-fib (on amiodarone, metoprolol, Cardizem; anticoagulated with Eliquis) now s/p Watchman procedure in 09/28, myasthenia gravis, hypertension, hyperlipidemia, type 2 diabetes mellitus with diarrhea and solids/liquids dysphagia. Will arrange EGD to rule out other pathology, but discussed the MG could be contributing to this - Submit stool studies - Plan for EGD - S/S of food impaction discussed and when to present to ED - Pending above consider TRAVELING CONSTRUCTION SUPERINTENDENT evaluation - ED for emergencies - Please call with any questions or concerns RETURN TO CLINIC: after above I spent a total of 45 minutes on the date of service in review of patient's record, and previously obtained information in person and appropriate medical visit, discussion and education of plan, withpatient and/or caregiver, placing orders for tests/referral/procedures as medically necessary and documentation of pertinent clinical information in patient's medical records for their visit today. HEMANTH Wang 10/05/2023 11:25 AM documented in this encounter Nursing Notes * Dinora Pacheco, RN - 10/05/2023 11:06 AM EST Chief Complaint Patient presents with NEW PATIENT dysphagia Diarrhea Pt here with son -in law, since 09/06/23 pt states food is backing up in his esophagus and having watery stools for when solid has oil film on it. No melena/BRB When on a bland diet that helped the swallowing issue. Had nausea also documented in this encounter Plan of Treatment Upcoming Encounters Date Type Department Care Team (Latest Contact Info) Description 10/27/2023 10:15 AM EST [facility] En[facility] [address] [facility] [phone] Ameena Pascual MD [email or web address] [place] [id number] 10/27/2023 10:15 AM EST - 10/27/2023 10:45 AM EST Surgery ENDO [facility], Endoscopy Room [facility] [address] [place] [place] [phone] Ameena Pascual MD [address] [place] [address] ESOPHAGOGASTRODUODENOSCOPY (EGD), FLEXIBLE, TRANSORAL, DIAGNOSTIC Scheduled Orders Name Type Priority Associated Diagnoses Orde r Schedule EGD, FLEXIBLE, DIAGNOSTIC Procedures Routine Dysphagia, unspecified type Myasthenia gravis (HCC) Diarrhea, unspecified type Ordered: 10/05/2023 GASTROINTESTINAL PATHOGEN PANEL, STOOL Lab Routine Dysphagia, unspecified type Myasthenia gravis (HCC) Diarrhea, unspecified type Expected: 10/05/2023, Expires: 10/05/2024 CLOSTRIDIUM DIFFICILE, PCR Lab Routine Dysphagia, unspecified type Myasthenia gravis (HCC) Diarrhea, unspecified type Expected: 10/05/2023, Expires: 10/05/2024 FECAL FAT, QUALITATIVE Lab Routine Dysphagia, unspecified type Myasthenia gravis (HCC) Diarrhea, unspecified type Expected: 10/05/2023, Expires: 10/05/2024 Scheduled Procedures Name Priority Associated Diagnoses Date/Ti me ESOPHAGOGASTRODUODENOSCOPY ( EGD), FLEXIBLE, TRANSORAL, DIAGNOSTIC Dysphagia, unspecified type Myasthenia gravis (HCC) Diarrhea, unspecified type 10/27/2023 10:15 AM EST Health Maintenance Due Date Last Done Comments Depression Screening 1954 Albumin/Creatinine Ratio 1960 Zoster Vaccines (1 of 2) 1992 Hepatitis B (1 of 3 - Risk 3-dose series) 2002 COVID-19 Vaccine (2 - 2022- season) 2023 05/14/2021 GFR 05/29/2024 05/29/2023, 05/07, [...] Not on filedocumented as of this encounter Visit Diagnoses Diagnosis Dysphagia, unspecified type- Primary Myasthenia gravis (HCC) Myasthenia gravis without exacerbation Diarrhea, unspecified type Dysphagia, unspecified type Myasthenia gravis (HCC) Myasthenia gravis without exacerbation Diarrhea, unspecified type documented in this encounter Advance Directives Latest Code Status on File Code Status Date Activated Date Inactivated Comments Full Code 12/23/2021 10:34 AM 12/25/2021 6:35 PM This order reflects the patients wishes and were consensually agreed upon. Question Answer Comments Discussion of Advance Directives occurred with: Patient Care Teams Yoghurt Maker Relationship Specialty Start Date End Date Juan Dominique MD [address] [place] [address] PCP - General Family Medicine 09/26/23 documented as of this encounter
[2023-11-26 03:35] LABS: Appearance Urine Clear (Clear); Bacteria Urine Automated Negative (Negative); Bilirubin Urine Negative (Negative); Blood Urine Negative (Negative); Color Urine Yellow; Glucose Urine UA Negative (Negative); Ketones Urine 1+ (Negative); Leukocyte Esterase Urine Trace (Negative); Nitrite Urine Negative (Negative); Protein Urine Negative (Negative); RBC Urine Automated 0-4 /hpf (0-4); Urobilinogen Urine Negative (Negative)
[2023-11-26 03:45] LABS: Basophils # (auto) 0.02 K/uL (0.00-0.20); Basophils % (auto) 0.4 %; Eosinophils # (auto) 0.07 K/uL (0.00-0.50); Eosinophils % (auto) 1.5 %; Hematocrit (blood only) 39.5 % (42.0-52.0); Hemoglobin 12.1 g/dl (14.0-18.0); Immature Granulocytes # (auto) 0.01 K/uL (0.01-0.20); Immature Granulocytes % (auto) 0.2 %; Lymphocytes # (auto) 1.01 K/uL (1.20-3.40); Lymphocytes % (auto) 21.5 %; Mean Corpuscular Hgb Conc 30.6 g/dL (32.0-36.0); Mean Corpuscular Volume 94.7 fL (80.0-100.0); Mean Platelet Volume 12.1 fL (9.4-12.4); Monocytes # (auto) 0.79 K/uL (0.11-0.59); Monocytes % (auto) 16.8 %; Neutrophils % (auto) 59.6 %; Platelet Count 151 K/uL (130-400); RDW Coefficient of Variation 15.6 % (11.5-14.5); RDW Standard Deviation 53.9 fL (36.4-46.3); Red Blood Count 4.17 M/uL (4.70-6.10)
[2023-11-26 03:46] LABS: Albumin Globulin Ratio 1.2 (0.9-2); Albumin Level 4.1 gm/dl (3.4-5.0); Bilirubin,Total 1.3 mg/dl (0.2-1.0); Creatinine Clr Calc Pharmacy 42.4 ml/min; Est GFR (African American) 49.9 ml/min; Globulin 3.4 gm/dl (2.5-4.0); Potassium 4.1 mmol/L (3.5-5.1); Total Protein 7.5 gm/dl (6.0-8.3)
[2023-11-26 03:52] LABS: Troponin I High Sensitivity 10.1 pg/ml (0-20)
[2023-11-26 04:02] LABS: Thyroid Stimulating Hormone 12.54 uIu/ml (0.300-4.500)
[2023-11-26 04:36] LABS: T4 Free Thyroxine 0.85 ng/dl (0.61-1.60)
--- NOTE | 2023-11-26 04:37 | CT Scan Report ---
Exam(s): CT HEAD Without Contrast EXAM: CT Head Without Intravenous Contrast CLINICAL HISTORY: Reason for exam: falls ; altered ms. TECHNIQUE: Axial computed tomography images of the head/brain without intravenous contrast. CTDI is 37.87 mGy and DLP is 703.85 mGy-cm. Automated exposure control was utilized for the study. A dose lowering technique was utilized adhering to the principles of ALARA. COMPARISON: CT Head dated 07/03/23 FINDINGS: Brain: Volume loss with prominent ventricles and sulci. No hemorrhage. No significant white matter disease. Ventricles: See above. Bones/joints: Unremarkable. No acute fracture. Soft tissues: Unremarkable. Sinuses: Mucus retention cysts or polyps in the maxillary sinuses. No sinus fluid levels. Mastoid air cells: Unremarkable as visualized. No mastoid effusion. Orbits: Bilateral intraocular lens implantation. IMPRESSION: No acute findings in the head/brain. Electronically signed by: Danika Perera M.D. 11/26/23 04:35 AM
[2023-11-26] MEDS ORDERED: SODIUM CHLORIDE 0.9% 500 ML IV ONE (05:00)
[2023-11-26 05:36] LABS: Adenovirus PCR Not Detected (NotDetected); Bordetella parapertussis PCR Not Detected (NotDetected); Bordetella pertussis PCR Not Detected (NotDetected); Chlamydia pneumoniae PCR Not Detected (NotDetected); Coronavirus 229E PCR Not Detected (NotDetected); Coronavirus CoV-2 (COVID19)PCR Not Detected (NotDetected); Coronavirus HKU1 PCR Not Detected (NotDetected); Coronavirus NL63 PCR Not Detected (NotDetected); Coronavirus OC43PCR Not Detected (NotDetected); Human Metapneumovirus PCR Not Detected (NotDetected); Influenza A PCR Not Detected (NotDetected); Influenza B PCR Not Detected (NotDetected); Mycoplasma pneumoniae PCR Not Detected (NotDetected); Parainfluenza Virus 1 PCR Not Detected (NotDetected); Parainfluenza Virus 2 PCR Not Detected (NotDetected); Parainfluenza Virus 3 PCR Not Detected (NotDetected); Parainfluenza Virus 4 PCR Not Detected (NotDetected); Respiratory Syncytial VirusPCR Not Detected (NotDetected); Rhinovirus/Enterovirus PCR Not Detected (NotDetected)
[2023-11-26] MEDS ORDERED: dexAMETHasone**PF** 10 MG/ML VIAL IV ONE (07:00)
--- NOTE | 2023-11-26 07:10 | Electrocardiogram Report ---
Test Reason : Blood Pressure : / mmHG Vent. Rate : 043 BPM Atrial Rate : 043 BPM P-R Int : 180 ms QRS Dur : 120 ms QT Int : 482 ms P-R-T Axes : 068 -52 025 degrees QTc Int : 407 ms Marked sinus bradycardia Left axis deviation Right bundle branch block Abnormal ECG When compared with ECG of 29-MAY-2023 03:00, Right bundle branch block is now Present Confirmed by Emiliano Vasquez ([id number]) on 11/26/2023 7:10:42 AM Referred By: REFERRED SELF Confirmed By:Abdirizak Vasquez
--- NOTE | 2023-11-26 07:22 | XRay Report ---
XR chest 1V portable CLINICAL HISTORY: Weakness. COMPARISON STUDY: Chest radiograph and right rib series June 25, 2023. FINDINGS: Lung volumes are normal. Lungs are clear. There is no pneumothorax or pleural effusion. Mil d cardiomegaly. Mediastinal contours are normal. There is no evidence for pulmonary edema. IMPRESSION: No acute cardiopulmonary findings. ACT 112: Negative or not required by law. Electronically signed by: Kiet Fabian M.D. 11/26/2023 7:21 AM
--- NOTE | 2023-11-26 07:44 | History & Physical Report ---
Date of Service November 26, 2023 Assessment & Plan (1) Dysphagia causing pulmonary aspiration with swallowing: (2) New onset headache: (3) Myasthenia gravis: (4) Symptomatic bradycardia: (5) Atrial fibrillation: (6) DM II (diabetes mellitus, type II), controlled: (7) Obstructive uropathy: Plan Mr. Huizar is an 83 year old gentleman with history of paroxysmal atrial fibrillation now s/p Watchman 09/28, myasthenia gravis, hypertension, HLD, DMTII, progressive dysphagia who is presenting to [facility] ED due to worsening headaches, dysphagia, and episode of confusion and admitted on 11/26 for evaluation of such. Patient with complex medical history and notable overlap of symptoms. Cardiology to assess for candidacy of pacemaker given issues with bradycardia, as well as complications with recurrent a fib rvr. Neurology to assess for any optimization or concerns regarding MG Speech on consult with plans for video swallow in am. Once complete, will discuss with GI next steps contingent on results #Progressive dysphagia, concern for aspiration #Increased secretions -Patient evaluated by HEMANTH Walton 10/05/2023, plans for EGD -Speech evaluated patient -Soft diet for now, plans for VSS 11/27 -After video swallow study, consider GI consult -Aspiration precautions #Right Occipital Headache, x2 weeks #Episode of confusion, altered mental status #Myasthenia Gravis -Follow neurology, Dr. Saturnino Mckinley -09/06/2023, Was considering Azathioprine but 2/2 labs draws declined; prompting increase Mestinon 60mg QID and Mestinon TS 180mg qhs -New headache with right occipital distributing, sharp down neck -Episode of delirium almost, with screaming in chair for help feeling as if he was "in the car" -s/p 10mg DEX IV in ED -Continue mestinon 60mg QID, request family to bring in Mestinon 180mg qhs -Neurology consult, appreciate recommendations #Recurrent mechanical falls #Ambulatory dysfunction #Prior subdural hematoma -traumatic fall 12/2021 with hematoma noted -PT/OT -Fall precautions #Hypothyroidism -TSH 12.54, free T4 0.85 CTM, historically untreated 2/2 ongoing MG #Paroxysmal Atrial Fibrillation s/p watchman #Chronic RBBB #Symptomatic bradycardia [id number] 3, HASBLED 2 01/2022, newly diagnosed A Fib RVR, discharged with amiodarone; discontinued 11/2022, however reverted back to a fib and placed on amio/metoprolol/dilt s/p cardioversion Followed with Dr Mcneil 05/2023 during admission, during that time amiodarone continued, metoprolol Watchman placed 09/2023 -On amiodarone 200mg daily -Placed on DAPT post watchman to continue for reportedly 6 months, then asa 81 indefinitely -Continue ASA and plavix -Cardiology consult -Hold amiodarone -Discuss bradycardia as contributing factor for symptoms/weakness/etc -Monitor on Telemetry #Hypoglycemia #DMTII -BG 67 on admission D5LR while NPO, d/c now that speech cleared for PO Hypogylcemia protocol A1C in am #HTN Takes amlodipine and losartan -Holding both 2/2 hypotension on arrival and poor po intake #Carotid stenosis s/p CEA #HLD Continue pravastatin #Chronic diarrhea Continue home colestipol #Urinary urgency #Recurrent nephrolithiasis #Renal Cysts -Failed Gemtesa, trospium, myrbetriq, follows Dr. Broussard; OP recommendation include limit salt, prioritize hydration -Continue potassium citrate 10meq daily DVT ppx: heparin/SCDs Admit to med/tele Neuro/Cards on consult PT/OT Dispo contingent upon VFSS and net developer consultant recommendations, suspect potential for rehab, onoing dispo planning Admission and Anticipated Discharge Date Admission Date: Time spent evaluating patient, direct bedside care, chart review, placing orders, interpretation of diagnostic studies, discussion with consultants, patient, and family members, as well as other required patient management activities is 60 minutes. History of Present Illness Chief Complaint: worsening aspiration, confusion, falls Primary Care Provider: Juan August MD Mr. Huizar is an 83 year old gentleman with history of paroxysmal atrial fibrillation now s/p Watchman 09/28, myasthenia gravis, hypertension, HLD, DMTII, progressive dysphagia who is presenting to [facility] ED due to worsening headaches, dysphagia, and episode of confusion. Patient states that over the last few months, he has been experiencing worsening weakness and dysphagia--marked by aspiration with most meals, pills, as well as vomiting phlegm He states that he has persistent diplopia and vision hasn't worsened, but over last two weeks he has experienced new headaches. This headaches are predominately on the right occiput area and radiate down neck--they wont really resolve on their own. He states the headache he experienced yesterday, 11/25 was accompanied by confusion/disorientation. He states that he was sitting in his recliner, when he suddenly screamed for help, thinking he was in a car. Episode like this had never occurred prior. Patient denies fevers, chills, chest pain. Patient endorses ambulatory dysf unction marked by worsening balance/weakness, as well as dysphagia and secretion production. In the ED, vitals were notable for BP of 108-120s, HR of 40-50s and O2 sat of high 90s on room air. Imaging revealed signs of cardiomegaly, but no signs of pneumonia/pneumonitis, CT scan with volume loss, but no acute changes EKG with RBBB, bradycardia Labs with SHWETA and hypoglycemia ED interventions: s/p dexamethsone for headache Consultants: Neuro/cards Patient to be admitted to med/tele for optimization of MG and cardiac status, as well as eval of dysphagia with swallow study Allergies Allergy/AdvReac Type Severity Reaction Status Date / Time felodipine Allergy Intermediate hives Verified 06/28/23 14:36 flunisolide Allergy Unknown other Verified 06/28/23 14:36 gabapentin AdvReac Intermediate GI SYMPTOMS Verified 06/28/23 14:36 Thiazides AdvReac Intermediate CAUSED GOUT Verified 06/28/23 14:36 Home Medications Medication Instructions Recorded Confirmed Type pravastatin 40 mg tablet 40 mg PO HS 12/23/21 11/26/23 History pyridostigmine bromide 60 mg 60 mg PO 4XD 12/23/21 11/26/23 History tablet (Mestinon) acetaminophen 325 mg capsule 650 mg PO QID PRN Pain 01/21/22 11/26/23 History (Tylenol) losartan 50 mg tablet 50 mg PO DAILY 10/20/22 11/26/23 History amiodarone 200 mg tablet 200 mg PO DAILY 05/28/23 11/26/23 History amlodipine 5 mg tablet 5 mg PO DAILY 11/26/23 11/26/23 History aspirin 81 mg chewable tablet 81 mg PO DAILY 11/26/23 11/26/23 History clopidogrel 75 mg tablet 75 mg PO DAILY 11/26/23 11/26/23 History cyanocobalamin (vitamin B-12) 500 500 mcg PO QAM 11/26/23 11/26/23 History mcg tablet (Vitamin B-12) ergocalciferol (vitamin D2) 10 mcg 10 mcg PO DAILY 11/26/23 11/26/23 History (400 unit) tablet potassium 1 tab PO DAILY 11/26/23 11/26/23 History pyridostigmine bromide 180 mg 180 mg PO HS 11/26/23 11/26/23 History tablet,extended release Past Med/Surg History Medical History Atrial fibrillation [facility] [place] [facility]/2022 Carotid stenosis s/p carotid endarterectomy, side unknown DM II (diabetes mellitus, type II), controlled diet controlled, no longer on meds History of subarachnoid hemorrhage 12/2021 HLD (hyperlipidemia) HTN (hypertension) IBS (irritable bowel syndrome) Kidney lesion Left ureteral stone MDD (major depressive disorder) Myasthenia gravis Surgical History History of carotid endarterectomy done about 5 yrs ago, [facility] [place] History of vasectomy Hx of cystoscopy w/ stent 10/20/22 MAC. Post-op anesthesia progress note: "slightly hypotensive but is close to his preoperative baseline and has been receiving Vancomycin through his IV. His other vital signs are stable." S/P cholecystectomy Family History Father Stroke Social History (Updated 11/26/23 @ 13:42 by Anette Pedraza MD) Smoking Status: Never smoker Tobacco Type: Cigarettes Second Hand Exposure: No; Do You Dip or Chew Tobacco: No; Hx Alcohol Use: No Hx Substance Use: No Preferred Language: Setswana Communication Ability: Effective Visual Impairment: No Limitations Special Education Assistant Required: No Beliefs That Will Affect Care: None marital status: Current Living Situation: Spouse current occupational status: retired Feels Safe at Home: Yes caffeine: Yes Assistive Devices: Cane, Glasses and Walker Review of Systems Review of Systems: Constitutional: (-) fever/chills, (-) recent loss of weight, (++) appetite changes, (-) night sweats. Head: (++) headache, (++) dizziness. Eye: (-) blurring of vision, (++) double vision, (-) redness. Ear: (-) hearing loss, (-) discharge, (-) vertigo Nose: (-) discharge, (-) bleeding, (-) congestion, (-) post nasal drip. Throat: (-) sore throat, (-) hoarseness of voice, (-) odynophagia. Cardiovascular: (-) chest pain, (-) palpitations, (-) syncope, (-) orthopnea, (- ) PND, (-) leg swelling. Respiratory: (-) shortness of breath, (-) cough, (-) wheezing, (-) hemoptysis. Neuro: (++) weakness in extremities, (-) numbness, (-) tingling, (-) tremor. Gastrointestinal: (-) belly pain, (-) belly distension, (-) nausea, (-) vomiting, (-) diarrhea, (-) constipation, (-) na, (-) hematemesis, (-) hematochezia, (-) bowel incontinence Genitourinary: (-) hematuria, (-) dysuria, (-) polyuria, (-) hesitancy, (-) frequency, (-) urinary incontinence. Musculoskeletal: (-) myalgia, (-) arthralgia. Skin: (-) rashes. Endocrine: (-) heat/cold intolerance. Psychiatry: (-) depression, (-) hallucination. Physical Exam Physical Exam: GENERAL APPEARANCE: AxOx4, weak, appearing gentleman HEENT: NC, AT. MMM ptosis noted bilaterally, difficult to asses EOMI , clear conjunctiva, oropharynx clear. NECK: Supple without lymphadenopathy. No stiffness or restricted ROM. HEART: bradycardic and regular rhythm, normal S1/S1, no m/r/g LUNGS: diminished breath sounds, 2/2 effort ABDOMEN: Soft, nontender, nondistended with good bowel sounds heard. BACK: No CVAT, no obvious deformity. EXTREMITIES: Without cyanosis, clubbing or edema. NEUROLOGICAL: strength 4/5 in LLE, 3/5 upper proximal muscles, ptosis, grossly nonfocal dysarthria Skin: Warm and dry without any rash. small wound on LLE, poorly kept toenails, no signs of infection/wounds Results & Data Results & Data Vital Signs (Past 12 Hours) Vital Signs Pulse Pulse Resp BP BP Pulse Ox O2 Del Method 11/26/23 06:00 45 L 16 108/59 L 97 Room Air 11/26/23 05:52 43 L 11/26/23 04:44 38 L 16 108/51 L 96 Room Air 11/26/23 02:06 94 Room Air 11/26/23 01:56 41 L 11/26/23 01:49 43 L 16 129/61 94 Room Air Laboratory Results Short CBC 11/26/23 Range/Units 02:27 WBC 4.70 L (4.8-10.8) K/ul Hgb 12.1 L (14.0-18.0) g/dl Hct 39.5 L (42.0-52.0) % Plt Count 151 (130-400) K/uL BMP 11/26/23 02:27 Sodium 144 Potassium 4.1 Chloride 111 H Carbon Dioxide 24 BUN 33 H Creatinine 1.50 H Glucose 67 L Calcium 10.0 Liver Function 11/26/23 Range/Units 02:27 Total Bilirubin 1.3 H (0.2-1.0) mg/dl AST 35 (13-39) U/L ALT 18 (7-52) U/L Alkaline Phosphatase 73 (34-104) U/L Albumin 4.1 (3.4-5.0) gm/dl Urine 11/26/23 Range/Units 03:23 Urine Color Yellow Urine Appearance Clear (Clear) Urine pH 5.0 (4.5-7.5) Ur Specific [place] 1.020 (1.000-1.030) Urine Protein Negative (Negative) Urine Glucose (UA) Negative (Negative) Diagnostic Findings Chest X-Ray 11/26/23 01:56 XR chest 1V portable CLINICAL HISTORY: Weakness. COMPARISON STUDY: Chest radiograph and right rib series June 25, 2023. FINDINGS: Lung volumes are normal. Lungs are clear. There is no pneumothorax or pleural effusion. Mild cardiomegaly. Mediastinal contours are normal. There is no evidence for pulmonary edema. IMPRESSION: No acute cardiopulmonary findings. ACT 112: Negative or not required by law. Electronically signed by: Kiet Fabian M.D. 11/26/2023 7:[address] 11/26/23 02:42 Exam(s): CT HEAD Without Contrast EXAM: CT Head Without Intravenous Contrast CLINICAL HISTORY: Reason for exam: falls ; altered ms. TECHNIQUE: Axial computed tomography images of the head/brain without intravenous contrast. CTDI is 37.87 mGy and DLP is 703.85 mGy-cm. Automated exposure control was utilized for the study. A dose lowering technique was utilized adhering to the principles of ALARA. COMPARISON: CT Head dated 07/03/23 FINDINGS: Brain: Volume loss with prominent ventricles and sulci. No hemorrhage. No significant white matter disease. Ventricles: See above. Bones/joints: Unremarkable. No acute fracture. Soft tissues: Unremarkable. Sinuses: Mucus retention cysts or polyps in the maxillary sinuses. No sinus fluid levels. Mastoid air cells: Unremarkable as visualized. No mastoid effusion. Orbits: Bilateral intraocular lens implantation. IMPRESSION: No acute findings in the head/brain. Electronically signed by: Danika Perera M.D. 11/26/23 04:35 AM Medications Administered Home Medications Medication Instructions Recorded Confirmed Last Taken pravastatin 40 mg tablet 40 mg PO HS 12/23/21 11/26/23 03/10/23 pyridostigmine bromide 60 mg 60 mg PO 4XD 12/23/21 11/26/23 03/10/23 tablet (Mestinon) acetaminophen 325 mg capsule 650 mg PO QID PRN Pain 01/21/22 11/26/23 10/31/22 10:00 (Tylenol) losartan 50 mg tablet 50 mg PO DAILY 10/20/22 11/26/23 03/10/23 amiodarone 200 mg tablet 200 mg PO DAILY 05/28/23 11/26/23 05/28/23 08:00 amlodipine 5 mg tablet 5 mg PO DAILY 11/26/23 11/26/23 Unknown aspirin 81 mg chewable tablet 81 mg PO DAILY 11/26/23 11/26/23 Unknown clopidogrel 75 mg tablet 75 mg PO DAILY 11/26/23 11/26/23 Unknown cyanocobalamin (vitamin B-12) 500 500 mcg PO QAM 11/26/23 11/26/23 Unknown mcg tablet (Vitamin B-12) ergocalciferol (vitamin D2) 10 mcg 10 mcg PO DAILY 11/26/23 11/26/23 Unknown (400 unit) tablet potassium 1 tab PO DAILY 11/26/23 11/26/23 Unknown pyridostigmine bromide 180 mg 180 mg PO HS 11/26/23 11/26/23 Unknown tablet,extended release Active Medications Generic Name Dose Route Start Last Admin Trade Name Monica PRN Reason Stop Dose Admin Heparin Sodium (Porcine) 5,000 units 11/26/23 14:00 11/26/23 13:31 Heparin Sod 5,000 Unit/0.5 Ml Vial SQ 12/26/23 13:59 5,000 units Q8 NAREN Administration Dextrose/Lactated Ringer's 1,000 mls @ 80 mls/hr 11/26/23 08:00 11/26/23 08:52 D5w And Lactated Ringers IV 12/26/23 07:59 80 mls/hr .[id number] NAREN Administration Pyridostigmine [place] 60 mg 11/26/23 08:55 11/26/23 13:31 Pyridostigmine [place] 60 Mg Tab PO 12/26/23 08:54 60 mg QID NAREN Administration Heparin Sodium (Porcine) (Heparin Sod 5,000 Unit/0.5 Ml Vial) 5,000 units SQ Q8 NAREN Stop: 12/26/23 13:59 Last Admin: 11/26/23 13:31 Dose: 5,000 units Documented By: MAURISIO Dextrose/Lactated Ringer's (D5w And Lactated Ringers) 1,000 mls @ 80 mls/hr IV .[id number] NAREN Stop: 12/26/23 07:59 Last Admin: 11/26/23 08:52 Dose: 80 mls/hr Documented By: LATOSHA Pyridostigmine [place] (Pyridostigmine [place] 60 Mg Tab) 60 mg PO QID NAREN Stop: 12/26/23 08:54 Last Admin: 11/26/23 13:31 Dose: 60 mg Documented By: Admin: 11/26/23 11:03 Dose: 60 mg Documented By: LATOSHA
--- NOTE | 2023-11-26 08:33 | Emergency Department Note ---
Impression & Plan Dysphagia, Acute alteration in mental status, Ambulatory dysfunction, History of myasthenia gravis, Occipital headache, Bradycardia Admit to the [facility] ED Provider Note NAME: MRAIAMA PEARCE AGE: 83 SEX: Male INFORMANT: Patient and his daughter ED PROVIDER(S): Laverne Aceves DO CHIEF COMPLAINT: Altered mental status after fall PLAN: Disposition: Admit to the [facility] MEDICAL DECISION MAKING: This is an 83-year-old male patient with a complicated past medical history including myasthenia gravis who presents to the emergency department with multiple complaints but most notably suffered a fall tonight and had altered mental status afterwards. The patient receives much of his care at the [place]. patient has noted occipital headache over the past 2 to 3 weeks which seems better upon standing. Patient also has noted in the past 7 to 10 days increased difficulty with swallowing and significant phlegm production to the point that he avoids eating for fear of choking/aspirating. While here in the emergency department, the patient was noted to be significantly bradycardic with heart rates as low as 32. The patient states he has a history of bradycardia that have been asymptomatic in the past. Laboratory workup here in the ER revealed a white blood cell count of 4.7. Hemoglobin of 12.1. BUN 33/creatinine 1.5. Glucose was somewhat low at 67. TSH was significantly elevated at 12.5. Urinalysis had 1+ ketones. Patient did appear somewhat dehydrated and was bolused with IV normal saline solution. He was given a dose of IV Decadron to try and help with his chronic headache. Patient underwent CT scan of the brain which was unremarkable. We did attempt to ambulate the patient for possible discharge and this was not safe. The patient required significant assistance. I discussed the case with the [facility] and they will evaluate for further inpatient care to further rule out, exacerbation of myasthenia gravis and Care/management discussed with: manager plant; [facility] Triage Nursing notes: reviewed and agree with them. Vital Signs: reviewed and remarkable for bradycardia Additional History obtained from: The patient's daughter who is at the bedside Chronic Medical/Social Conditions affecting care: Myasthenia gravis Differential Diagnosis: Acute CVA, intracranial trauma, exacerbation of myasthenia gravis, symptomatic bradycardia, and aspiration Diagnostics, independently interpreted by me: ECG: Sinus bradycardia at a rate of [address] segment elevation or signs of ischemia. There is no ectopy. There is evidence of a right bundle branch block. Cardiac Monitoring: Sinus bradycardia at 45 Imaging studies: Portable chest x-ray: No acute pulmonary infiltrates or consolidation as per my independent interpretation CT scan of the brain: As per stat rad HPI: 83 year old Male arrives for evaluation of fall and altered mental status. Patient has noted a worsening occipital headache over the past 2 weeks with increased falls over the past couple of days. The patient did suffer a fall tonight and had an altered mental status afterwards. Family has noted the patient has had increased difficulty swallowing and phlegm production over the past 10 days to the point that he is avoiding eating for fear of choking. PAST MEDICAL HISTORY: See Below, PAST SURGICAL HISTORY: See Below, SOCIAL HISTORY: Lives with family HOME MEDICATIONS: See list ALLERGIES: See list VITALS: See Below PHYSICAL EXAMINATION: HEENT: Head - normocephalic and atraumatic. Pupils are equal, round, and reactive to light. Extraocular eye muscles are intact and sclera are anicteric. Ears - bilaterally patent canals with noninjected tympanic membranes and no evidence of hemotympanum. Nose - moist nasal mucosa without discharge. Mouth - moist buccal mucosa. Oropharynx is nonerythematous and there is no tonsillar exudate or edema noted. Neck: Supple; no JVD, nuchal rigidity, cervical lymphadenopathy, or auscultated bruits. Heart: Bradycardic rate and regular rhythm there is a normal S1 and S2 with no murmurs, clicks, or gallops appreciated. Lungs: Clear to auscultation bilaterally with no wheezes, rales, or rhonchi. Abdomen: Soft, completely nontender, nondistended, with good bowel sounds. There are no palpable pulsatile masses or hepatosplenomegaly. There is no guarding, rigidity, or rebound noted. Extremities: No evidence of cyanosis, clubbing, or edema. There are easily palpable peripheral pulses. Neuro:The patient is awake and alert, oriented to day, time, and place. Muscle strength is 5/5 in all 4 extremities. The patient has equal educational resource coordinator strength and equal pedal push and pull. There are no cerebellar signs. Emergency department treatment: gambling monitor, IV normal saline bolus, IV Decadron Emergency department course: The patient was evaluated in room B-10. A complete history and physical was performed. Laboratory studies were drawn as above. A twelve-lead EKG was obtained as described above. An order was placed for continuous cardiac monitoring. The patient was in sinus bradycardia at a rate of 45. He went for CT scan of the brain. Urinalysis was obtained. IV normal saline bolus, IV Decadron I reviewed results of the labs and CT with the patient and his daughter. His mental status seemed appropriate but he failed an ambulation trial. I discussed the case with the [facility] and they will evaluate for further inpatient care. Past Med/Surg History Medical History Carotid stenosis s/p carotid endarterectomy, side unknown Left ureteral stone Kidney lesion Atrial fibrillation [facility]LL[facility] [place] LAST VISIT 07/2022 MDD (major depressive disorder) DM II (diabetes mellitus, type II), controlled diet controlled, no longer on meds HLD (hyperlipidemia) HTN (hypertension) History of subarachnoid hemorrhage 12/2021 Myasthenia gravis IBS (irritable bowel syndrome) Surgical History History of carotid endarterectomy done about 5 yrs ago, [facility] [place] Hx of cystoscopy w/ stent 10/20/22 MAC. Post-op anesthesia progress note: "slightly hypotensive but is close to his preoperative baseline and has been receiving Vancomycin through his IV. His other vital signs are stable." History of vasectomy S/P cholecystectomy Family History Father Stroke Social History Smoking Status: Never smoker Tobacco Type: Cigarettes Second Hand Exposure: No; Do You Dip or Chew Tobacco: No; Hx Alcohol Use: No Hx Substance Use: No Preferred Language: [place] Communication Ability: Effective Visual Impairment: No Limitations Timber Management Specialist Required: No Beliefs That Will Affect Care: None marital status: Current Living Situation: Spouse current occupational status: retired Feels Safe at Home: Yes caffeine: Yes Assistive Devices: Cane and Walker Allergies Allergies Allergy/AdvReac Type Severity Reaction Status Date / Time felodipine Allergy Intermediate hives Verified 06/28/23 14:36 flunisolide Allergy Unknown other Verified 06/28/23 14:36 gabapentin AdvReac Intermediate GI SYMPTOMS Verified 06/28/23 14:36 Thiazides AdvReac Intermediate CAUSED GOUT Verified 06/28/23 14:36 Home Meds Home Medications Medication Instructions Recorded Confirmed pravastatin 40 mg tablet 40 mg PO HS 12/23/21 11/26/23 pyridostigmine bromide 60 mg 60 mg PO 4XD 12/23/21 11/26/23 tablet (Mestinon) acetaminophen 325 mg capsule 650 mg PO QID PRN Pain 01/21/22 11/26/23 (Tylenol) losartan 50 mg tablet 50 mg PO DAILY 10/20/22 11/26/23 amiodarone 200 mg tablet 200 mg PO DAILY 05/28/23 11/26/23 amlodipine 5 mg tablet 5 mg PO DAILY 11/26/23 11/26/23 aspirin 81 mg chewable tablet 81 mg PO DAILY 11/26/23 11/26/23 clopidogrel 75 mg tablet 75 mg PO DAILY 11/26/23 11/26/23 cyanocobalamin (vitamin B-12) 500 500 mcg PO QAM 11/26/23 11/26/23 mcg tablet (Vitamin B-12) ergocalciferol (vitamin D2) 10 mcg 10 mcg PO DAILY 11/26/23 11/26/23 (400 unit) tablet potassium 1 tab PO DAILY 11/26/23 11/26/23 pyridostigmine bromide 180 mg 180 mg PO HS 11/26/23 11/26/23 tablet,extended release Results & Data (ED) Vital Signs Vital Signs - 24 hr 11/26/23 01:49 11/26/23 01:56 11/26/23 02:06 Pulse Rate 43 L 41 L Pulse Rate [Apical] Pulse Rhythm [Apical] Pulse Strength [Apical] Respiratory Rate 16 Respiratory Effort / Characteristics Non-Labored Spontaneous Respiratory Depth Normal Respiratory Pattern Regular Blood Pressure 129/61 Blood Pressure [Right Arm] Blood Pressure Mean 83 Blood Pressure Mean [Right Arm] Blood Pressure Position [Right Arm] Pulse Oximetry 94 94 Oxygen Delivery Method Room Air Room Air Sepsis Recent Fever Within 48 Hours No Sepsis New/Unexplained Change in Mental Status No Sepsis Action Taken by Nursing No Action Required 11/26/23 04:44 11/26/23 05:52 11/26/23 06:00 Pulse Rate 43 L Pulse Rate [Apical] 38 L 45 L Pulse Rhythm [Apical] Regular Regular Pulse Strength [Apical] Normal Normal Respiratory Rate 16 16 Respiratory Effort / Characteristics Non-Labored Spontaneous Non-Labored Spontaneous Respiratory Depth Normal Normal Respiratory Pattern Regular Regular Blood Pressure Blood Pressure [Right Arm] 108/51 L 108/59 L Blood Pressure Mean Blood Pressure Mean [Right Arm] 70 75 Blood Pressure Position [Right Arm] Lying Lying Pulse Oximetry 96 97 Oxygen Delivery Method Room Air Room Air Sepsis Recent Fever Within 48 Hours Sepsis New/Unexplained Change in Mental Status Sepsis Action Taken by Nursing Laboratory Data 11/28/23 07:42 11/28/23 07:42 Lab Results 11/26/23 11/26/23 11/26/23 Range/Units 02:26 02:27 03:23 WBC 4.70 L (4.8-10.8) K/ul RBC 4.17 L (4.70-6.10) M/uL Hgb 12.1 L (14.0-18.0) g/dl Hct 39.5 L (42.0-52.0) % MCV 94.7 (80.0-100.0) fL MCH 29.0 (25.0-34.0) pg MCHC 30.6 L (32.0-36.0) g/dL RDW Std Deviation 53.9 H (36.4-46.3) fL RDW Coeff of [place] 15.6 H (11.5-14.5) % Plt Count 151 (130-400) K/uL MPV 12.1 (9.4-12.4) fL Immature Gran % (Auto) 0.2 % Neut % (Auto) 59.6 % Lymph % (Auto) 21.5 % Alfalfa % (Auto) 16.8 % Eos % (Auto) 1.5 % Baso % (Auto) 0.4 % Neut # (Auto) 2.80 (1.40-6.50) K/uL Lymph # (Auto) 1.01 L (1.20-3.40) K/uL Alfalfa # (Auto) 0.79 H (0.11-0.59) K/uL Eos # (Auto) 0.07 (0.00-0.50) K/uL Baso # (Auto) 0.02 (0.00-0.20) K/uL Immature Gran # (Auto) 0.01 (0.01-0.20) K/uL Sodium 144 (136-145) mmol/L Potassium 4.1 (3.5-5.1) mmol/L Chloride 111 H (98-107) mmol/L Carbon Dioxide 24 (21-32) mmol/L Anion Gap 9 (3-11) BUN 33 H (6-23) mg/dl Creatinine 1.50 H (0.6-1.4) mg/dl Est Cr Clr Drug Dosing 42.4 ml/min Est GFR ( Amer) 49.9 ml/min Est GFR (Non-Af Amer) 43.0 ml/min BUN/Creatinine Ratio 22.0 H (10-20) Glucose 67 L (70-99(Fasting)) mg/dl POC Glucose (70-99) mg/dl Lactate 1.0 (0.4-2.0) mmol/L Calcium 10.0 (8.6-10.3) mg/dl Total Bilirubin 1.3 H (0.2-1.0) mg/dl AST 35 (13-39) U/L ALT 18 (7-52) U/L Alkaline Phosphatase 73 (34-104) U/L Troponin I High Sens 10.1 (0-20) pg/ml Total Protein 7.5 (6.0-8.3) gm/dl Albumin 4.1 (3.4-5.0) gm/dl Globulin 3.4 (2.5-4.0) gm/dl Albumin/Globulin Ratio 1.2 (0.9-2) TSH 12.540 H (0.300-4.500) uIu/ml Free T4 0.85 (0.61-1.60) ng/dl Urine Color Yellow Urine Appearance Clear (Clear) Urine pH 5.0 (4.5-7.5) Ur Specific [place] 1.020 (1.000-1.030) Urine Protein Negative (Negative) Urine Glucose (UA) Negative (Negative) Urine Ketones 1+ H (Negative) Urine Blood Negative (Negative) Urine Nitrite Negative (Negative) Urine Bilirubin Negative (Negative) Urine Urobilinogen Negative (Negative) Ur Leukocyte Esterase Trace H (Negative) Urine WBC (Auto) 1-5 (0-5) /hpf Urine RBC (Auto) 0-4 (0-4) /hpf U Hyaline Cast (Auto) 10-30 H (0-5) /lpf U Epithel Cells (Auto) 10-20 H (0-5) /lpf Urine Bacteria (Auto) Negative (Negative) Adenovirus (PCR) (NotDetected) B. pertussis DNA (PCR) (NotDetected) B.parapertussis DNA PCR (NotDetected) C. pneumoniae DNA (PCR) (NotDetected) Coronavirus OC43 (PCR) (NotDetected) Coronavirus HKU1 (PCR) (NotDetected) Coronavirus 229E (PCR) (NotDetected) SARS-CoV-2 (PCR) (NotDetected) Coronavirus NL63 (PCR) (NotDetected) Human Metapneumovir PCR (NotDetected) Influenza Type A (PCR) (NotDetected) Influenza Type B (PCR) (NotDetected) M. pneumoniae (PCR) (NotDetected) Parainfluenza 1 (PCR) (NotDetected) Parainfluenza 2 (PCR) (NotDetected) Parainfluenza 3 (PCR) (NotDetected) Parainfluenza 4 (PCR) (NotDetected) RSV (PCR) (NotDetected) Entero/Rhino (PCR) (NotDetected) 11/26/23 11/26/23 Range/Units 03:50 08:56 WBC (4.8-10.8) K/ul RBC (4.70-6.10) M/uL Hgb (14.0-18.0) g/dl Hct (42.0-52.0) % MCV (80.0-100.0) fL MCH (25.0-34.0) pg MCHC (32.0-36.0) g/dL RDW Std Deviation (36.4-46.3) fL RDW Coeff of [place] (11.5-14.5) % Plt Count (130-400) K/uL MPV (9.4-12.4) fL Immature Gran % (Auto) % Neut % (Auto) % Lymph % (Auto) % Alfalfa % (Auto) % Eos % (Auto) % Baso % (Auto) % Neut # (Auto) (1.40-6.50) K/uL Lymph # (Auto) (1.20-3.40) K/uL Alfalfa # (Auto) (0.11-0.59) K/uL Eos # (Auto) (0.00-0.50) K/uL Baso # (Auto) (0.00-0.20) K/uL Immature Gran # (Auto) (0.01-0.20) K/uL Sodium (136-145) mmol/L Potassium (3.5-5.1) mmol/L Chloride (98-107) mmol/L Carbon Dioxide (21-32) mmol/L Anion Gap (3-11) BUN (6-23) mg/dl Creatinine (0.6-1.4) mg/dl Est Cr Clr Drug Dosing ml/min Est GFR ( Amer) ml/min Est GFR (Non-Af Amer) ml/min BUN/Creatinine Ratio (10-20) Glucose (70-99(Fasting)) mg/dl POC Glucose 69 L* (70-99) mg/dl Lactate (0.4-2.0) mmol/L Calcium (8.6-10.3) mg/dl Total Bilirubin (0.2-1.0) mg/dl AST (13-39) U/L ALT (7-52) U/L Alkaline Phosphatase (34-104) U/L Troponin I High Sens (0-20) pg/ml Total Protein (6.0-8.3) gm/dl Albumin (3.4-5.0) gm/dl Globulin (2.5-4.0) gm/dl Albumin/Globulin Ratio (0.9-2) TSH (0.300-4.500) uIu/ml Free T4 (0.61-1.60) ng/dl Urine Color Urine Appearance (Clear) Urine pH (4.5-7.5) Ur Specific [place] (1.000-1.030) Urine Protein (Negative) Urine Glucose (UA) (Negative) Urine Ketones (Negative) Urine Blood (Negative) Urine Nitrite (Negative) Urine Bilirubin (Negative) Urine Urobilinogen (Negative) Ur Leukocyte Esterase (Negative) Urine WBC (Auto) (0-5) /hpf Urine RBC (Auto) (0-4) /hpf U Hyaline Cast (Auto) (0-5) /lpf U Epithel Cells (Auto) (0-5) /lpf Urine Bacteria (Auto) (Negative) Adenovirus (PCR) Not Detected (NotDetected) B. pertussis DNA (PCR) Not Detected (NotDetected) B.parapertussis DNA PCR Not Detected (NotDetected) C. pneumoniae DNA (PCR) Not Detected (NotDetected) Coronavirus OC43 (PCR) Not Detected (NotDetected) Coronavirus HKU1 (PCR) Not Detected (NotDetected) Coronavirus 229E (PCR) Not Detected (NotDetected) SARS-CoV-2 (PCR) Not Detected (NotDetected) Coronavirus NL63 (PCR) Not Detected (NotDetected) Human Metapneumovir PCR Not Detected (NotDetected) Influenza Type A (PCR) Not Detected (NotDetected) Influenza Type B (PCR) Not Detected (NotDetected) M. pneumoniae (PCR) Not Detected (NotDetected) Parainfluenza 1 (PCR) Not Detected (NotDetected) Parainfluenza 2 (PCR) Not Detected (NotDetected) Parainfluenza 3 (PCR) Not Detected (NotDetected) Parainfluenza 4 (PCR) Not Detected (NotDetected) RSV (PCR) Not Detected (NotDetected) Entero/Rhino (PCR) Not Detected (NotDetected) Administered Medications Amiodarone HCl (Amiodarone 200 Mg Tab) 200 mg PO DAILY [facility] Stop: 12/27/23 08:59 Last Admin: 11/28/23 09:40 Dose: 200 mg Documented By: [facility] Admin: 11/27/23 12:37 Dose: 200 mg Documented By: [facility] Aspirin (Aspirin 81 Mg Chew) 81 mg PO DAILY [facility] Stop: 12/27/23 08:59 Last Admin: 11/28/23 11:18 Dose: Not Given Documented By: [facility] Admin: 11/27/23 14:15 Dose: 81 mg Documented By: [facility] Clopidogrel Bisulfate (Clopidogrel Bisulfate 75 Mg Tab) 75 mg PO DAILY [facility] Stop: 12/27/23 08:59 Last Admin: 11/28/23 11:19 Dose: Not Given Documented By: [facility] Admin: 11/27/23 12:36 Dose: 75 mg Documented By: PIPPA Colestipol HCl (Colestipol Hcl 1 Gm Tab) 1 gm PO BID@1000,2200 [facility] Stop: 12/26/23 21:59 Last Admin: 11/28/23 09:40 Dose: 1 gm Documented By: Admin: 11/28/23 00:17 Dose: Not Given Documented By: PIPPA(2) Admin: 11/27/23 12:36 Dose: 1 gm Documented By: Admin: 11/26/23 21:39 Dose: 1 gm Documented By: JOSE RAUL Cyanocobalamin (Cyanocobalamin (B-12) 500 Mcg Tablet) 500 mcg PO QAM [facility] Stop: 12/27/23 08:59 Last Admin: 11/28/23 11:19 Dose: Not Given Documented By: Admin: 11/27/23 12:35 Dose: 500 mcg Documented By: PIPPA Heparin Sodium (Porcine) (Heparin Sod 5,000 Unit/0.5 Ml Vial) 5,000 units SQ Q8 [facility] Stop: 12/26/23 13:59 Last Admin: 11/28/23 06:38 Dose: 5,000 units Documented By: PIPPA(2) Admin: 11/28/23 00:09 Dose: 5,000 units Documented By: PIPPA(2) Admin: 11/27/23 14:15 Dose: 5,000 units Documented By: Admin: 11/27/23 05:17 Dose: 5,000 units Documented By: JOSE RAUL Admin: 11/26/23 21:40 Dose: 5,000 units Documented By: JOSE RAUL Admin: 11/26/23 13:31 Dose: 5,000 units Documented By: MAURISIO Dextrose/Lactated Ringer's (D5w And Lactated Ringers) 1,000 mls @ 80 mls/hr IV .[id number] [facility] Stop: 12/26/23 07:59 Last Admin: 11/28/23 06:38 Dose: 80 mls/hr Documented By: PIPPA(2) Infusion: 11/28/23 05:57 Dose: Infused Documented By: PIPPA(2) Admin: 11/27/23 17:27 Dose: 80 mls/hr Documented By: Infusion: 11/27/23 17:25 Dose: Infused Documented By: Infusion: 11/27/23 12:30 Dose: 0 mls/hr Documented By: Admin: 11/27/23 02:17 Dose: 80 mls/hr Documented By: JOSE RAUL Infusion: 11/26/23 21:37 Dose: Infused Documented By: JOSE RAUL Infusion: 11/26/23 18:42 Dose: 80 mls/hr Documented By: Infusion: 11/26/23 18:27 Dose: 0 mls/hr Documented By: Admin: 11/26/23 08:52 Dose: 80 mls/hr Documented By: LATOSHA Ceftriaxone Sodium 2,000 mg/ (Dextrose) 50 mls @ 100 mls/hr IV Q24H [facility]; Protocol Stop: 11/28/23 17:59 Last Infusion: 11/27/23 18:48 Dose: Infused Documented By: PIPPA(2) Admin: 11/27/23 18:18 Dose: 100 mls/hr Documented By: Infusion: 11/26/23 18:42 Dose: Infused Documented By: Admin: 11/26/23 18:12 Dose: 100 mls/hr Documented By: MAURISIO Potassium Citrate (Potassium Citrate 10 Meq Tab) 10 meq PO QAM [facility] Stop: 12/27/23 08:59 Last Admin: 11/28/23 11:19 Dose: Not Given Documented By: Admin: 11/27/23 12:36 Dose: 10 meq Documented By: PIPPA Pravastatin Sodium (Pravastatin Sod 40 Mg Tab) 40 mg PO HS [facility] Stop: 12/26/23 20:59 Last Admin: 11/28/23 00:09 Dose: 40 mg Documented By: PIPPA(2) Admin: 11/26/23 21:39 Dose: 40 mg Documented By: JOSE RAUL Pyridostigmine [place] (Pyridostigmine [place] 60 Mg Tab) 60 mg PO QID [facility] Stop: 12/26/23 08:54 Last Admin: 11/28/23 09:34 Dose: 60 mg Documented By: Admin: 11/28/23 00:09 Dose: 60 mg Documented By: PIPPA(2) Admin: 11/27/23 17:27 Dose: 60 mg Documented By: Admin: 11/27/23 14:15 Dose: 60 mg Documented By: Admin: 11/27/23 12:36 Dose: 60 mg Documented By: Admin: 11/26/23 21:40 Dose: 60 mg Documented By: JOSE RAUL Admin: 11/26/23 16:35 Dose: 60 mg Documented By: Admin: 11/26/23 13:31 Dose: 60 mg Documented By: Admin: 11/26/23 11:03 Dose: 60 mg Documented By: LATOSHA Pyridostigmine [place] (Pyridostigmine Sustained Rel 180 Mg Tabcr) 180 mg PO DAILY@2200 [facility] Stop: 12/27/23 20:59 Last Admin: 11/28/23 00:10 Dose: Not Given Documented By: PIPPA(2) Vitamin D (Cholecalciferol 400 Units 10 Mcg Tab) 400 units PO DAILY [facility] Stop: 12/27/23 08:59 Last Admin: 11/28/23 11:18 Dose: Not Given Documented By: Admin: 11/27/23 12:36 Dose: 400 units Documented By: PIPPA Discontinued Medications Aspirin (Aspirin 81 Mg Ectab) 81 mg PO NOW STA Stop: 11/26/23 08:54 Last Admin: 11/26/23 11:08 Dose: 81 mg Documented By: PITERO Aspirin (Aspirin 81 Mg Ectab) Confirm Administered Dose 81 mg PO .STK-MED ONE Stop: 11/26/23 11:08 Last Admin: 11/26/23 11:08 Dose: Not Given Documented By: PIETRO Clopidogrel Bisulfate (Clopidogrel Bisulfate 75 Mg Tab) 75 mg PO NOW ONE Stop: 11/26/23 08:54 Last Admin: 11/26/23 11:08 Dose: 75 mg Documented By: PIETRO Clopidogrel Bisulfate (Clopidogrel Bisulfate 75 Mg Tab) Confirm Administered Dose 75 mg .ROUTE .STK-MED ONE Stop: 11/26/23 11:08 Last Admin: 11/26/23 11:08 Dose: Not Given Documented By: PIETRO Dexamethasone Sodium Phosphate (DexamethasonePf 10 Mg/Ml Vial) 10 mg IV NOW ONE Stop: 11/26/23 07:01 Last Admin: 11/26/23 07:35 Dose: 10 mg Documented By: LATOSHA Gadobutrol (Gadobutrol 65ml Vial) 9 ml IV ONCE ONE Stop: 11/27/23 12:14 Last Admin: 11/27/23 11:52 Dose: 9 ml Documented By: GEORGE Sodium Chloride (Nss) 500 mls @ 999 mls/hr IV .Q31M ONE Stop: 11/26/23 05:30 Last Infusion: 11/26/23 05:54 Dose: Infused Documented By: Admin: 11/26/23 05:14 Dose: 999 mls/hr Documented By: AUGUSTO Sodium Phosphate 30 mmol/ (Sodium Chloride) 510 mls @ 88 mls/hr IV ONE ONE Stop: 11/27/23 17:32 Last Infusion: 11/27/23 18:21 Dose: Infused Documented By: Admin: 11/27/23 12:31 Dose: 88 mls/hr Documented By: PIPPA Magnesium Sulfate/Dextrose (Magnesium Sulfate / D5w) 1 gm in 100 mls @ 50 mls/hr IV Q2H [facility] Stop: 11/27/23 18:29 Last Admin: 11/27/23 16:03 Dose: Not Given Documented By: PIPPA Miscellaneous (Pyridostigmine Sustained Rel 180 Mg Tabcr: Order Awaiting Action) 1 each N/A QS [facility] Stop: 12/26/23 15:59 Last Admin: 11/27/23 14:13 Dose: Not Given Documented By: Admin: 11/27/23 07:21 Dose: Not Given Documented By: Admin: 11/27/23 01:16 Dose: Not Given Documented By: Admin: 11/26/23 15:21 Dose: Not Given Documented By: MAURISIO Olanzapine (Olanzapine 10 Mg/2.1 Ml Sdv) 2.5 mg IM NOW STA Stop: 11/28/23 03:26 Last Admin: 11/28/23 04:15 Dose: 2.5 mg Documented By: PIPPA(2) Prednisone (Prednisone 20 Mg Tab) 60 mg PO DAILY [facility] Stop: 12/27/23 08:59 Last Admin: 11/27/23 12:35 Dose: 60 mg Documented By: PIPPA Imaging Data Radiologist's Impression: Chest X-Ray 11/26/23 01:56 XR chest 1V portable CLINICAL HISTORY: Weakness. COMPARISON STUDY: Chest radiograph and right rib series June 25, 2023. FINDINGS: Lung volumes are normal. Lungs are clear. There is no pneumothorax or pleural effusion. Mild cardiomegaly. Mediastinal contours are normal. There is no evidence for pulmonary edema. IMPRESSION: No acute cardiopulmonary findings. ACT 112: Negative or not required by law. Electronically signed by: Kiet Fabian M.D. 11/26/2023 7:[address] 11/26/23 02:42 Exam(s): CT HEAD Without Contrast EXAM: CT Head Without Intravenous Contrast CLINICAL HISTORY: Reason for exam: falls ; altered ms. TECHNIQUE: Axial computed tomography images of the head/brain without intravenous contrast. CTDI is 37.87 mGy and DLP is 703.85 mGy-cm. Automated exposure control was utilized for the study. A dose lowering technique was utilized adhering to the principles of ALARA. COMPARISON: CT Head dated 07/03/23 FINDINGS: Brain: Volume loss with prominent ventricles and sulci. No hemorrhage. No significant white matter disease. Ventricles: See above. Bones/joints: Unremarkable. No acute fracture. Soft tissues: Unremarkable. Sinuses: Mucus retention cysts or polyps in the maxillary sinuses. No sinus fluid levels. Mastoid air cells: Unremarkable as visualized. No mastoid effusion. Orbits: Bilateral intraocular lens implantation. IMPRESSION: No acute findings in the head/brain. Electronically signed by: Danika ePrera M.D. 11/26/23 04:35 AM Discharge Plan Visit Data Chief Complaint: Fall Stated Complaint: MULTIPLE FALLS, HEADACHE ED Provider: Laverne Aceves Discharge Problem: Dysphagia, Acute alteration in mental status, Ambulatory dysfunction, History of myasthenia gravis, Occipital headache, Bradycardia Patient Disposition: Admitted As Inpatient Discharge Instructions Interventions: ED Discharge Assessment Last Done: 11/26/23 11:44
[2023-11-26] MEDS: D5W AND LACTATED RINGERS 1,000 ML IV SCH (08:52)
[2023-11-26] MEDS ORDERED: CLOPIDOGREL BISULFATE 75 MG TAB PO ONE (08:53)
[2023-11-26] MEDS ORDERED: ASPIRIN 81 MG ECTAB PO STA (08:53)
[2023-11-26] MEDS: pyRIDostigmine bromide 60 MG TAB PO SCH ×4 (11:03→21:40)
[2023-11-26] MEDS ORDERED: CLOPIDOGREL BISULFATE 75 MG TAB ONE (11:07)
[2023-11-26] MEDS ORDERED: ASPIRIN 81 MG ECTAB PO ONE (11:07)
[2023-11-26] MEDS ORDERED: CARBOHYDRATES FOR HYPOGLYCEMIA PO PRN (11:43)
[2023-11-26] MEDS ORDERED: DEXTROSE 50% 50 ML SYRINGE IV PRN (11:43)
[2023-11-26] MEDS ORDERED: GLUCOSE 10 TAB/TUBE PO PRN (11:43)
[2023-11-26] MEDS ORDERED: GLUCAGON FOR INJ 1 MG VIAL SQ PRN (11:43)
[2023-11-26] MEDS ORDERED: GLUCOSE 40% GEL 15 GM TUBE PO PRN (11:43)
[2023-11-26] MEDS: HEPARIN SOD 5,000 UNIT/0.5 ML VIAL SQ SCH ×2 (13:31→21:40)
[2023-11-26] MEDS ORDERED: ACETAMINOPHEN 325 MG TAB PO PRN (14:01)
--- NOTE | 2023-11-26 16:28 | Neurology Consultation ---
Date of Consultation November 26, 2023 Assessment & Plan (1) Myasthenia gravis: The patient is not in myasthenia gravis crisis, mild worsening might be related to an underlying infection, would have a low threshold to treat the UTI, try ceftriaxone which would not induce crisis. Can give prednisone 60 mg once daily for 1 week and taper. Will need to follow- up with his primary neurologist. Monitor FVCs (2) New onset headache: An episode of hallucinations? Unsure if this was in the setting of any arrhythmias or medication side effects. Obtain MRI of the brain and MRA of the neck Telehealth Consultation Telehealth Information Telehealth Information: I performed this visit using a real-time telehealth connection between my location and the patients location ([facility]). After connecting through interactive tele-video, patient was identified by name and date of and/or wristband check.Patient (or authorized healthcare medical center representative) was informed that this was a telemedicine visit and it was being conducted confidentially over secure lines. My office door was closed and no one else was present in the room with me.Patient (or authorized healthcare medical center representative) provided consent to proceed with the visit, expressed an understanding of privacy and security of the telemedicine visit, and gave permission to have a hospital medical center representative in the room in order to assist with the visit and to conduct portions of the visit, as needed. I informed the patient (or authorized healthcare medical center representative) that I reviewed their record and presented the opportunity for them to ask any questions regarding the visit today. The patient agreed to participate. History of Present Illness Reason for Consultation: worsening Myasthenic symptoms Requesting Physician: Dr Pedraza Attending Physician: Anette Pedraza MD History of Present Illness Mr. Christopher is an 83-year-old male patient with PMH of HTN, HLP, DM 2, depression, myasthenia gravis, muscle weakness, recurrent falls, history of subarachnoid hemorrhage, A-fib treated with Watchman procedure, aspirin and Plavix (plans for 6 months then switch to single antiplatelet). Patient is presenting to the ED with multiple symptoms currently Mestinon 60 mg 4 times daily with 180 at bedtime. The patient presented to the hospital after an episode of what is described as hallucinations or delusions where he was screaming to people around him that he feels like he is in a car when he is sitting in his chair. This was associated with headaches. In the ED his headaches improved with dexamethasone 10 mg. He reports that over the past few weeks he has been feeling more lethargic and tired his legs are weaker. He does have intermittent double vision throughout the day but not particularly in the evening. He was on prednisone but it caused his blood pressure to increase so he stopped it. Per HPI he declined azathioprine before. Today the patient is alert and oriented and was able to participate in history however could not elaborate much on the details Allergies Allergy/AdvReac Type Severity Reaction Status Date / Time felodipine Allergy Intermediate hives Verified 06/28/23 14:36 flunisolide Allergy Unknown other Verified 06/28/23 14:36 gabapentin AdvReac Intermediate GI SYMPTOMS Verified 06/28/23 14:36 Thiazides AdvReac Intermediate CAUSED GOUT Verified 06/28/23 14:36 Home Medications Medication Instructions Recorded Confirmed Type pravastatin 40 mg tablet 40 mg PO HS 12/23/21 11/26/23 History pyridostigmine bromide 60 mg 60 mg PO 4XD 12/23/21 11/26/23 History tablet (Mestinon) acetaminophen 325 mg capsule 650 mg PO QID PRN Pain 01/21/22 11/26/23 History (Tylenol) losartan 50 mg tablet 50 mg PO DAILY 10/20/22 11/26/23 History amiodarone 200 mg tablet 200 mg PO DAILY 05/28/23 11/26/23 History amlodipine 5 mg tablet 5 mg PO DAILY 11/26/23 11/26/23 History aspirin 81 mg chewable tablet 81 mg PO DAILY 11/26/23 11/26/23 History clopidogrel 75 mg tablet 75 mg PO DAILY 11/26/23 11/26/23 History cyanocobalamin (vitamin B-12) 500 500 mcg PO QAM 11/26/23 11/26/23 History mcg tablet (Vitamin B-12) ergocalciferol (vitamin D2) 10 mcg 10 mcg PO DAILY 11/26/23 11/26/23 History (400 unit) tablet potassium 1 tab PO DAILY 11/26/23 11/26/23 History pyridostigmine bromide 180 mg 180 mg PO HS 11/26/23 11/26/23 History tablet,extended release Patient History Medical History Atrial fibrillation [facility] [place] [facility] 07/2022 Carotid stenosis s/p carotid endarterectomy, side unknown DM II (diabetes mellitus, type II), controlled diet controlled, no longer on meds History of subarachnoid hemorrhage 12/2021 HLD (hyperlipidemia) HTN (hypertension) IBS (irritable bowel syndrome) Kidney lesion Left ureteral stone MDD (major depressive disorder) Myasthenia gravis Surgical History History of carotid endarterectomy done about 5 yrs ago, PR in [place] History of vasectomy Hx of cystoscopy w/ stent 10/20/22 MAC. Post-op anesthesia progress note: "slightly hypotensive but is close to his preoperative baseline and has been receiving Vancomycin through his IV. His other vital signs are stable." S/P cholecystectomy Family History Father Stroke Social History (Updated 11/26/23 @ 13:42 by Anette Pedraza MD) Smoking Status: Never smoker Tobacco Type: Cigarettes Second Hand Exposure: No; Do You Dip or Chew Tobacco: No; Hx Alcohol Use: No Hx Substance Use: No Preferred Language: Vincentian Communication Ability: Effective Visual Impairment: No Limitations Shuttle Truck Driver Required: No Beliefs That Will Affect Care: None marital status: Current Living Situation: Spouse current occupational status: retired Feels Safe at Home: Yes caffeine: Yes Assistive Devices: Cane, Glasses and Walker Review of Systems Review of system is negative except for the points mentioned in HPI Physical Exam General Constitutional: Appearance normally developed Head and face: normocephalic and atraumatic Eyes: no ptosis, no anisocoria, and no dysconjugate gaze Respiratory: normal effort Cardiovascular: regular rhythm and regular rate Abdomen: non distended Skin: no rashes, lesions, or ulcers noted Psychiatric: normal judgement and insight, normal mood, and normal affect NEUROLOGIC EXAMINATION: Mental Status:alert, oriented to time, place, person, normal recent memory, normal remote memory, normal attention span, normal concentration, normal language and normal fund of knowledge Cranial Nerves: CN 2 - no visual defect on confrontation and pupils round, equal, reactive to light CN 3, 4, 6 - extra-ocular movements intact and no nystagmus, does have some bilateral lid droopiness more pronounced on the right CN 5 - facial sensation intact CN 7 - no facial asymmetry CN 8 - intact hearing CN 9, 10 - palate symmetric, normal gag, voice is clear no nasal tone CN 11 - good shoulder shrug CN 12 - tongue midline MOTOR: Strength was at least antigravity throughout, Pronator drift was absent and There were no abnormal movements SENSATION: intact and symmetric to pinprick, light touch, vibration and joint position GAIT: Deferred COORDINATION: no ataxia with finger to nose testing and heel to traore testing REFLEXES: cannot assess over telemedicine Results & Data Vital Signs (Past 12 Hours) Vital Signs Temp Pulse Pulse Pulse Resp BP BP 11/26/23 15:41 36.4 C L 51 L 18 120/63 11/26/23 15:07 53 L 11/26/23 13:56 11/26/23 13:25 54 L 11/26/23 13:24 36.8 C 52 L 18 11/26/23 12:36 11/26/23 12:35 52 L 17 11/26/23 11:05 44 L 20 11/26/23 10:40 49 L 12 11/26/23 10:30 46 L 13 11/26/23 10:20 46 L 13 11/26/23 10:10 45 L 13 11/26/23 10:00 40 L 12 11/26/23 09:50 43 L 7 L 11/26/23 09:40 39 L 10 L 11/26/23 09:30 42 L 10 L 11/26/23 09:20 40 L 10 L 11/26/23 09:10 46 L 22 11/26/23 09:00 44 L 17 11/26/23 08:57 45 L 17 11/26/23 08:57 123/57 L 11/26/23 08:57 47 L 15 11/26/23 08:50 43 L 14 11/26/23 08:40 45 L 14 11/26/23 08:30 45 L 14 11/26/23 08:20 45 L 20 11/26/23 08:10 41 L 14 11/26/23 08:00 40 L 9 L 11/26/23 07:50 42 L 16 11/26/23 07:40 44 L 10 L 11/26/23 07:30 45 L 14 11/26/23 07:20 47 L 14 11/26/23 06:00 45 L 16 11/26/23 05:52 43 L 11/26/23 04:44 38 L 16 BP Pulse Ox Pulse Ox O2 Del Method O2 Del Method O2 Flow Rate 11/26/23 15:41 98 Room Air 11/26/23 15:07 11/26/23 13:56 Room Air 11/26/23 13:25 11/26/23 13:24 142/67 H 98 Room Air 11/26/23 12:36 97 Room Air 0 11/26/23 12:35 130/68 95 Room Air 11/26/23 11:05 127/63 96 Room Air 11/26/23 10:40 96 11/26/23 10:30 96 11/26/23 10:20 97 11/26/23 10:10 96 11/26/23 10:00 94 11/26/23 09:50 96 11/26/23 09:40 95 11/26/23 09:30 95 11/26/23 09:20 94 11/26/23 09:10 97 11/26/23 09:00 93 11/26/23 08:57 97 11/26/23 08:57 11/26/23 08:57 123/57 L 96 Room Air 11/26/23 08:50 96 11/26/23 08:40 98 11/26/23 08:30 98 11/26/23 08:20 97 11/26/23 08:10 96 11/26/23 08:00 96 11/26/23 07:50 99 11/26/23 07:40 96 11/26/23 07:30 96 11/26/23 07:20 98 11/26/23 06:00 108/59 L 97 Room Air 11/26/23 05:52 11/26/23 04:44 108/51 L 96 Room Air Laboratory Results Laboratory Results - last 24 hr 11/26/23 11/26/23 11/26/23 02:26 02:27 03:23 WBC 4.70 L RBC 4.17 L Hgb 12.1 L Hct 39.5 L MCV 94.7 MCH 29.0 MCHC 30.6 L RDW Std Deviation 53.9 H RDW Coeff of [place] 15.6 H Plt Count 151 MPV 12.1 Immature Gran % (Auto) 0.2 Neut % (Auto) 59.6 Lymph % (Auto) 21.5 Garrett % (Auto) 16.8 Eos % (Auto) 1.5 Baso % (Auto) 0.4 Neut # (Auto) 2.80 Lymph # (Auto) 1.01 L Garrett # (Auto) 0.79 H Eos # (Auto) 0.07 Baso # (Auto) 0.02 Immature Gran # (Auto) 0.01 Sodium 144 Potassium 4.1 Chloride 111 H Carbon Dioxide 24 Anion Gap 9 BUN 33 H Creatinine 1.50 H Est Cr Clr Drug Dosing 42.4 Est GFR ( Amer) 49.9 Est GFR (Non-Af Amer) 43.0 BUN/Creatinine Ratio 22.0 H Glucose 67 L POC Glucose Lactate 1.0 Calcium 10.0 Total Bilirubin 1.3 H AST 35 ALT 18 Alkaline Phosphatase 73 Troponin I High Sens 10.1 Total Protein 7.5 Albumin 4.1 Globulin 3.4 Albumin/Globulin Ratio 1.2 TSH 12.540 H Free T4 0.85 Urine Color Yellow Urine Appearance Clear Urine pH 5.0 Ur Specific [place] 1.020 Urine Protein Negative Urine Glucose (UA) Negative Urine Ketones 1+ H Urine Blood Negative Urine Nitrite Negative Urine Bilirubin Negative Urine Urobilinogen Negative Ur Leukocyte Esterase Trace H Urine WBC (Auto) 1-5 Urine RBC (Auto) 0-4 U Hyaline Cast (Auto) 10-30 H U Epithel Cells (Auto) 10-20 H Urine Bacteria (Auto) Negative Adenovirus (PCR) B. pertussis DNA (PCR) B.parapertussis DNA PCR C. pneumoniae DNA (PCR) Coronavirus OC43 (PCR) Coronavirus HKU1 (PCR) Coronavirus 229E (PCR) SARS-CoV-2 (PCR) Coronavirus NL63 (PCR) Human Metapneumovir PCR Influenza Type A (PCR) Influenza Type B (PCR) M. pneumoniae (PCR) Parainfluenza 1 (PCR) Parainfluenza 2 (PCR) Parainfluenza 3 (PCR) Parainfluenza 4 (PCR) RSV (PCR) Entero/Rhino (PCR) 11/26/23 11/26/23 11/26/23 03:50 08:56 11:02 WBC RBC Hgb Hct MCV MCH MCHC RDW Std Deviation RDW Coeff of [place] Plt Count MPV Immature Gran % (Auto) Neut % (Auto) Lymph % (Auto) Garrett % (Auto) Eos % (Auto) Baso % (Auto) Neut # (Auto) Lymph # (Auto) Garrett # (Auto) Eos # (Auto) Baso # (Auto) Immature Gran # (Auto) Sodium Potassium Chloride Carbon Dioxide Anion Gap BUN Creatinine Est Cr Clr Drug Dosing Est GFR ( Amer) Est GFR (Non-Af Amer) BUN/Creatinine Ratio Glucose POC Glucose 69 L* 90 Lactate Calcium Total Bilirubin AST ALT Alkaline Phosphatase Troponin I High Sens Total Protein Albumin Globulin Albumin/Globulin Ratio TSH Free T4 Urine Color Urine Appearance Urine pH Ur Specific [place] Urine Protein Urine Glucose (UA) Urine Ketones Urine Blood Urine Nitrite Urine Bilirubin Urine Urobilinogen Ur Leukocyte Esterase Urine WBC (Auto) Urine RBC (Auto) U Hyaline Cast (Auto) U Epithel Cells (Auto) Urine Bacteria (Auto) Adenovirus (PCR) Not Detected B. pertussis DNA (PCR) Not Detected B.parapertussis DNA PCR Not Detected C. pneumoniae DNA (PCR) Not Detected Coronavirus OC43 (PCR) Not Detected Coronavirus HKU1 (PCR) Not Detected Coronavirus 229E (PCR) Not Detected SARS-CoV-2 (PCR) Not Detected Coronavirus NL63 (PCR) Not Detected Human Metapneumovir PCR Not Detected Influenza Type A (PCR) Not Detected Influenza Type B (PCR) Not Detected M. pneumoniae (PCR) Not Detected Parainfluenza 1 (PCR) Not Detected Parainfluenza 2 (PCR) Not Detected Parainfluenza 3 (PCR) Not Detected Parainfluenza 4 (PCR) Not Detected RSV (PCR) Not Detected Entero/Rhino (PCR) Not Detected 11/26/23 13:18 WBC RBC Hgb Hct MCV MCH MCHC RDW Std Deviation RDW Coeff of [place] Plt Count MPV Immature Gran % (Auto) Neut % (Auto) Lymph % (Auto) Garrett % (Auto) Eos % (Auto) Baso % (Auto) Neut # (Auto) Lymph # (Auto) Garrett # (Auto) Eos # (Auto) Baso # (Auto) Immature Gran # (Auto) Sodium Potassium Chloride Carbon Dioxide Anion Gap BUN Creatinine Est Cr Clr Drug Dosing Est GFR ( Amer) Est GFR (Non-Af Amer) BUN/Creatinine Ratio Glucose POC Glucose 112 H Lactate Calcium Total Bilirubin AST ALT Alkaline Phosphatase Troponin I High Sens Total Protein Albumin Globulin Albumin/Globulin Ratio TSH Free T4 Urine Color Urine Appearance Urine pH Ur Specific [place] Urine Protein Urine Glucose (UA) Urine Ketones Urine Blood Urine Nitrite Urine Bilirubin Urine Urobilinogen Ur Leukocyte Esterase Urine WBC (Auto) Urine RBC (Auto) U Hyaline Cast (Auto) U Epithel Cells (Auto) Urine Bacteria (Auto) Adenovirus (PCR) B. pertussis DNA (PCR) B.parapertussis DNA PCR C. pneumoniae DNA (PCR) Coronavirus OC43 (PCR) Coronavirus HKU1 (PCR) Coronavirus 229E (PCR) SARS-CoV-2 (PCR) Coronavirus NL63 (PCR) Human Metapneumovir PCR Influenza Type A (PCR) Influenza Type B (PCR) M. pneumoniae (PCR) Parainfluenza 1 (PCR) Parainfluenza 2 (PCR) Parainfluenza 3 (PCR) Parainfluenza 4 (PCR) RSV (PCR) Entero/Rhino (PCR) Diagnostic Findings Chest X-Ray 11/26/23 01:56 XR chest 1V portable CLINICAL HISTORY: Weakness. COMPARISON STUDY: Chest radiograph and right rib series June 25, 2023. FINDINGS: Lung volumes are normal. Lungs are clear. There is no pneumothorax or pleural effusion. Mild cardiomegaly. Mediastinal contours are normal. There is no evidence for pulmonary edema. IMPRESSION: No acute cardiopulmonary findings. ACT 112: Negative or not required by law. Electronically signed by: Kiet Fabian M.D. 11/26/2023 7:[address] 11/26/23 02:42 Exam(s): CT HEAD Without Contrast EXAM: CT Head Without Intravenous Contrast CLINICAL HISTORY: Reason for exam: falls ; altered ms. TECHNIQUE: Axial computed tomography images of the head/brain without intravenous contrast. CTDI is 37.87 mGy and DLP is 703.85 mGy-cm. Automated exposure control was utilized for the study. A dose lowering technique was utilized adhering to the principles of ALARA. COMPARISON: CT Head dated 07/03/23 FINDINGS: Brain: Volume loss with prominent ventricles and sulci. No hemorrhage. No significant white matter disease. Ventricles: See above. Bones/joints: Unremarkable. No acute fracture. Soft tissues: Unremarkable. Sinuses: Mucus retention cysts or polyps in the maxillary sinuses. No sinus fluid levels. Mastoid air cells: Unremarkable as visualized. No mastoid effusion. Orbits: Bilateral intraocular lens implantation. IMPRESSION: No acute findings in the head/brain. Electronically signed by: Danika Perera M.D. 11/26/23 04:35 AM Medications Administered Home Medications Medication Instructions Recorded Confirmed Last Taken pravastatin 40 mg tablet 40 mg PO HS 12/23/21 11/26/23 03/10/23 pyridostigmine bromide 60 mg 60 mg PO 4XD 12/23/21 11/26/23 03/10/23 tablet (Mestinon) acetaminophen 325 mg capsule 650 mg PO QID PRN Pain 01/21/22 11/26/23 10/31/22 10:00 (Tylenol) losartan 50 mg tablet 50 mg PO DAILY 10/20/22 11/26/23 03/10/23 amiodarone 200 mg tablet 200 mg PO DAILY 05/28/23 11/26/23 05/28/23 08:00 amlodipine 5 mg tablet 5 mg PO DAILY 11/26/23 11/26/23 Unknown aspirin 81 mg chewable tablet 81 mg PO DAILY 11/26/23 11/26/23 Unknown clopidogrel 75 mg tablet 75 mg PO DAILY 11/26/23 11/26/23 Unknown cyanocobalamin (vitamin B-12) 500 500 mcg PO QAM 11/26/23 11/26/23 Unknown mcg tablet (Vitamin B-12) ergocalciferol (vitamin D2) 10 mcg 10 mcg PO DAILY 11/26/23 11/26/23 Unknown (400 unit) tablet potassium 1 tab PO DAILY 11/26/23 11/26/23 Unknown pyridostigmine bromide 180 mg 180 mg PO HS 11/26/23 11/26/23 Unknown tablet,extended release Active Medications Generic Name Dose Route Start Last Admin Trade Name Freq PRN Reason Stop Dose Admin Heparin Sodium (Porcine) 5,000 units 11/26/23 14:00 11/26/23 13:31 Heparin Sod 5,000 Unit/0.5 Ml Vial SQ 12/26/23 13:59 5,000 units Q8 NAREN Administration Dextrose/Lactated Ringer's 1,000 mls @ 80 mls/hr 11/26/23 08:00 11/26/23 08:52 D5w And Lactated Ringers IV 12/26/23 07:59 80 mls/hr .[id number] NAREN Administration Miscellaneous 1 each 11/26/23 16:00 11/26/23 15:21 Pyridostigmine Sustained Rel 180 Mg Tabcr: Order Awaiting Action N/A 12/26/23 15:59 Not Given QS NAREN Pyridostigmine Curtis 60 mg 11/26/23 08:55 11/26/23 16:35 Pyridostigmine Curtis 60 Mg Tab PO 12/26/23 08:54 60 mg QID NAREN Administration
[2023-11-26] MEDS: cefTRIAXone SODIUM 2,000 MG in DEXTROSE 5 % MINI-B 50 ML IV SCH (18:12)
--- NOTE | 2023-11-26 19:08 | Cardiology Consultation ---
Date of Consultation November 26, 2023 Assessment & Plan (1) Sinus bradycardia: pt has a persistent bradycardia despite coming off medications; this is probably contributing to his symptoms of balance and falls i started the discussion about a pacemaker with the patient today; i did describe the procedure and potential risk with the patient today-he will discuss things with his as well-but most likely he should have a pacemaker prior to hospital discharge (2) RBBB: (3) Atrial fibrillation: on amiodarone QTC is ok LFT and TFT ok despite the bradycardia i would continue the amio for i do not want him to go into AF NO AC s/p watchman continue ASA and plavix (4) HTN (hypertension): bp is ok (5) HLD (hyperlipidemia): continue pravastatin (6) Myasthenia gravis: this is possibly contributing to his falls and weakness (7) New onset headache: A Plan 83 y/o M PMH Sinus bradycardia, RBBB, paf on amiodarone no AC s/p watchman, myasthenia gravis, HTN, HLD. Admitted with increased weakness and fatigue probably multifactorial given his underlying myasthenia gravis but I think his marked sinus bradycardia is not helping and that he would benefit from a pacemaker prior to discharge. for now continue amio, plavix, ASA, pravastatin discussed my plan and recommendations with the hospitalist in person who agreed. History of Present Illness Reason for Consultation: bradycardia Requesting Physician: Dr. Pedraza Attending Physician: Anette Pedraza MD History of Present Illness pt presented to hospital due to increased fatigue and generalized weakness with frequent falls. he typically follows with [facility] cardiology in [place] He has some SOB with minimal exertion No chest pains, palpitations rare lightheadedness and dizziness some difficulty swallowing no tremors Allergies Allergy/AdvReac Type Severity Reaction Status Date / Time felodipine Allergy Intermediate hives Verified 06/28/23 14:36 flunisolide Allergy Unknown other Verified 06/28/23 14:36 gabapentin AdvReac Intermediate GI SYMPTOMS Verified 06/28/23 14:36 Thiazides AdvReac Intermediate CAUSED GOUT Verified 06/28/23 14:36 Home Medications Medication Instructions Recorded Confirmed Type pravastatin 40 mg tablet 40 mg PO HS 12/23/21 11/26/23 History pyridostigmine bromide 60 mg 60 mg PO 4XD 12/23/21 11/26/23 History tablet (Mestinon) acetaminophen 325 mg capsule 650 mg PO QID PRN Pain 01/21/22 11/26/23 History (Tylenol) losartan 50 mg tablet 50 mg PO DAILY 10/20/22 11/26/23 History amiodarone 200 mg tablet 200 mg PO DAILY 05/28/23 11/26/23 History amlodipine 5 mg tablet 5 mg PO DAILY 11/26/23 11/26/23 History aspirin 81 mg chewable tablet 81 mg PO DAILY 11/26/23 11/26/23 History clopidogrel 75 mg tablet 75 mg PO DAILY 11/26/23 11/26/23 History cyanocobalamin (vitamin B-12) 500 500 mcg PO QAM 11/26/23 11/26/23 History mcg tablet (Vitamin B-12) ergocalciferol (vitamin D2) 10 mcg 10 mcg PO DAILY 11/26/23 11/26/23 History (400 unit) tablet potassium 1 tab PO DAILY 11/26/23 11/26/23 History pyridostigmine bromide 180 mg 180 mg PO HS 11/26/23 11/26/23 History tablet,extended release Patient History Medical History Carotid stenosis s/p carotid endarterectomy, side unknown Left ureteral stone Kidney lesion Atrial fibrillation [facility] [place] [facility] 07/2022 MDD (major depressive disorder) DM II (diabetes mellitus, type II), controlled diet controlled, no longer on meds HLD (hyperlipidemia) HTN (hypertension) History of subarachnoid hemorrhage 12/2021 Myasthenia gravis IBS (irritable bowel syndrome) Surgical History History of carotid endarterectomy done about 5 yrs ago, [facility] [place] Hx of cystoscopy w/ stent 10/20/22 MAC. Post-op anesthesia progress note: "slightly hypotensive but is close to his preoperative baseline and has been receiving Vancomycin through his IV. His other vital signs are stable." History of vasectomy S/P cholecystectomy Family History Father Stroke Social History Smoking Status: Never smoker Tobacco Type: Cigarettes Second Hand Exposure: No; Do You Dip or Chew Tobacco: No; Hx Alcohol Use: No Hx Substance Use: No Preferred Language: Croatian Communication Ability: Effective Visual Impairment: No Limitations Lead Ios Developer Required: No Beliefs That Will Affect Care: None marital status: Current Living Situation: Spouse current occupational status: retired Feels Safe at Home: Yes caffeine: Yes Assistive Devices: Cane, Glasses and Walker Review of Systems Review of Systems: All systems reviewed & are unremarkable except as noted in HPI & below Physical Exam Physical Exam: aaox3, NAD NC/AT, EOMI Supple No JVD bradycardia S1/S2, No murmur CTA b/l no w/r/r soft nt/nd no LE edema b/l skin intact no focal deficits Results & Data Vital Signs (Past 12 Hours) Vital Signs Temp Pulse Pulse Pulse Resp BP BP 11/26/23 15:41 36.4 C L 51 L 18 120/63 11/26/23 15:07 53 L 11/26/23 13:56 11/26/23 13:25 54 L 11/26/23 13:24 36.8 C 52 L 18 11/26/23 12:36 11/26/23 12:35 52 L 17 11/26/23 11:05 44 L 20 11/26/23 10:40 49 L 12 11/26/23 10:30 46 L 13 11/26/23 10:20 46 L 13 11/26/23 10:10 45 L 13 11/26/23 10:00 40 L 12 11/26/23 09:50 43 L 7 L 11/26/23 09:40 39 L 10 L 11/26/23 09:30 42 L 10 L 11/26/23 09:20 40 L 10 L 11/26/23 09:10 46 L 22 11/26/23 09:00 44 L 17 11/26/23 08:57 45 L 17 11/26/23 08:57 123/57 L 11/26/23 08:57 47 L 15 11/26/23 08:50 43 L 14 11/26/23 08:40 45 L 14 11/26/23 08:30 45 L 14 11/26/23 08:20 45 L 20 11/26/23 08:10 41 L 14 11/26/23 08:00 40 L 9 L 11/26/23 07:50 42 L 16 11/26/23 07:40 44 L 10 L 11/26/23 07:30 45 L 14 11/26/23 07:20 47 L 14 BP Pulse Ox Pulse Ox O2 Del Method O2 Del Method O2 Flow Rate 11/26/23 15:41 98 Room Air 11/26/23 15:07 11/26/23 13:56 Room Air 11/26/23 13:25 11/26/23 13:24 142/67 H 98 Room Air 11/26/23 12:36 97 Room Air 0 11/26/23 12:35 130/68 95 Room Air 11/26/23 11:05 127/63 96 Room Air 11/26/23 10:40 96 11/26/23 10:30 96 11/26/23 10:20 97 11/26/23 10:10 96 11/26/23 10:00 94 11/26/23 09:50 96 11/26/23 09:40 95 11/26/23 09:30 95 11/26/23 09:20 94 11/26/23 09:10 97 11/26/23 09:00 93 11/26/23 08:57 97 11/26/23 08:57 11/26/23 08:57 123/57 L 96 Room Air 11/26/23 08:50 96 11/26/23 08:40 98 11/26/23 08:30 98 11/26/23 08:20 97 11/26/23 08:10 96 11/26/23 08:00 96 11/26/23 07:50 99 11/26/23 07:40 96 11/26/23 07:30 96 11/26/23 07:20 98 Laboratory Results Cardiac Enzymes 11/26/23 Range/Units 02:27 AST 35 (13-39) U/L Troponin I High Sens 10.1 (0-20) pg/ml CBC 11/26/23 Range/Units 02:27 WBC 4.70 L (4.8-10.8) K/ul RBC 4.17 L (4.70-6.10) M/uL Hgb 12.1 L (14.0-18.0) g/dl Hct 39.5 L (42.0-52.0) % Plt Count 151 (130-400) K/uL Neut # (Auto) 2.80 (1.40-6.50) K/uL Lymph # (Auto) 1.01 L (1.20-3.40) K/uL Louisa # (Auto) 0.79 H (0.11-0.59) K/uL Eos # (Auto) 0.07 (0.00-0.50) K/uL Baso # (Auto) 0.02 (0.00-0.20) K/uL Comprehensive Metabolic Panel 11/26/23 Range/Units 02:27 Sodium 144 (136-145) mmol/L Potassium 4.1 (3.5-5.1) mmol/L Chloride 111 H (98-107) mmol/L Carbon Dioxide 24 (21-32) mmol/L BUN 33 H (6-23) mg/dl Creatinine 1.50 H (0.6-1.4) mg/dl Glucose 67 L (70-99(Fasting)) mg/dl Calcium 10.0 (8.6-10.3) mg/dl AST 35 (13-39) U/L ALT 18 (7-52) U/L Alkaline Phosphatase 73 (34-104) U/L Total Protein 7.5 (6.0-8.3) gm/dl Albumin 4.1 (3.4-5.0) gm/dl Intake and Output 11/26/23 11/26/23 11/26/23 06:59 14:59 22:59 Intake Total 500 / 500 120 / 936.667 816.667 / 936.667 Balance 500 / 500 120 / 936.667 816.667 / 936.667 Intake: IV 500 / 500 816.667 / 816.667 D5w and Lactated Ringers 1,000 766.667 / 766.667 ml @ 80 mls/hr IV .[id number] [facility] Rx#:[id number] Sodium Chloride 0.9% 500 ml @ 500 / 500 999 mls/hr IV .Q31M ONE Rx#: [id number] cefTRIAXone SODIUM 2,000 mg In 50 / 50 Dextrose 5 % Mini-B 50 ml @ 100 mls/hr IV Q24H NAREN Rx#: [id number] Oral 120 / 120 Other: # Unmeasured Voids 2 Weight 91.5 kg 91.6 kg Weight Measurement Method Built in [facility] Built [facility] Patient Weight 11/27/23 06:59 Weight 91.6 kg Diagnostic Findings ECGS: SB 43bpm RBBB 05/2023 SB RBBB CXR: 11/26/23 Based on my independent interpretation no acute cardio pulmonary process echocardiogram 07/28 EF 60-65% MAC Medications Administered Current Inpatient Medications Acetaminophen (Acetaminophen 325 Mg Tab) 650 mg PO Q4H PRN PRN Reason: Pain Stop: 12/26/23 14:00 Amiodarone HCl (Amiodarone 200 Mg Tab) 200 mg PO DAILY NAREN Stop: 12/27/23 08:59 Aspirin (Aspirin 81 Mg Chew) 81 mg PO DAILY NAREN Stop: 12/27/23 08:59 Clopidogrel Bisulfate (Clopidogrel Bisulfate 75 Mg Tab) 75 mg PO DAILY NAREN Stop: 12/27/23 08:59 Colestipol HCl (Colestipol Hcl 1 Gm Tab) 1 gm PO BID@1000,2200 NAREN Stop: 12/26/23 21:59 Cyanocobalamin (Cyanocobalamin (B-12) 500 Mcg Tablet) 500 mcg PO QAM NAREN Stop: 12/27/23 08:59 Dextrose (Dextrose 50% 50 Ml Syringe) 25 - 50 ml IV UD PRN; Protocol PRN Reason: Hypoglycemia Protocol Stop: 12/26/23 11:42 Glucagon (Glucagon For Inj 1 Mg Vial) 1 mg SQ UD PRN; Protocol PRN Reason: Hypoglycemia Protocol Stop: 12/26/23 11:42 Glucose (Glucose 10 Tab/Tube) 4 - 8 tab PO UD PRN; Protocol PRN Reason: Hypoglycemia Treatment Stop: 12/26/23 11:42 Glucose (Glucose 40% Gel 15 Gm Tube) 15 - 30 gm PO UD PRN; Protocol PRN Reason: Hypoglycemia Protocol Stop: 12/26/23 11:42 Heparin Sodium (Porcine) (Heparin Sod 5,000 Unit/0.5 Ml Vial) 5,000 units SQ Q8 NAREN Stop: 12/26/23 13:59 Last Admin: 11/26/23 13:31 Dose: 5,000 units Dextrose/Lactated Ringer's (D5w And Lactated Ringers) 1,000 mls @ 80 mls/hr IV .[id number] [facility]AREN Stop: 12/26/23 07:59 Last Infusion: 11/26/23 18:42 Dose: 80 mls/hr Ceftriaxone Sodium 2,000 mg/ (Dextrose) 50 mls @ 100 mls/hr IV Q24H [facility]; Protocol Stop: 11/28/23 17:59 Last Infusion: 11/26/23 18:42 Dose: Infused Miscellaneous (Pyridostigmine Sustained Rel 180 Mg Tabcr: Order Awaiting Action) 1 each N/A QS [facility] Stop: 12/26/23 15:59 Last Admin: 11/26/23 15:21 Dose: Not Given Miscellaneous (Carbohydrates For Hypoglycemia ) 15 - 30 gm PO UD PRN PRN Reason: Hypoglycemia Protocol Stop: 12/26/23 11:42 Potassium Citrate (Potassium Citrate 10 Meq Tab) 10 meq PO QAM [facility] Stop: 12/27/23 08:59 Pravastatin Sodium (Pravastatin Sod 40 Mg Tab) 40 mg PO HS [facility] Stop: 12/26/23 20:59 Prednisone (Prednisone 20 Mg Tab) 60 mg PO DAILY [facility] Stop: 12/27/23 08:59 Pyridostigmine [place] (Pyridostigmine [place] 60 Mg Tab) 60 mg PO QID [facility]AREN Stop: 12/26/23 08:54 Last Admin: 11/26/23 16:35 Dose: 60 mg Vitamin D (Cholecalciferol 400 Units 10 Mcg Tab) 400 units PO DAILY [facility] Stop: 12/27/23 08:59
[2023-11-26] MEDS: COLESTIPOL HCL 1 GM TAB PO SCH (21:39)
[2023-11-26] MEDS: PRAVASTATIN SOD 40 MG TAB PO SCH (21:39)
[2023-11-27] MEDS: D5W AND LACTATED RINGERS 1,000 ML IV SCH ×2 (02:17→17:27)
[2023-11-27] MEDS: HEPARIN SOD 5,000 UNIT/0.5 ML VIAL SQ SCH ×2 (05:17→14:15)
[2023-11-27 07:43] LABS: Hematocrit (blood only) 39.4 % (42.0-52.0); Hemoglobin 12.4 g/dl (14.0-18.0); Mean Corpuscular Hemoglobin 28.5 pg (25.0-34.0); Mean Corpuscular Hgb Conc 31.5 g/dL (32.0-36.0); Mean Corpuscular Volume 90.6 fL (80.0-100.0); Platelet Count 156 K/uL (130-400); RDW Coefficient of Variation 15.3 % (11.5-14.5); RDW Standard Deviation 50.6 fL (36.4-46.3); Red Blood Count 4.35 M/uL (4.70-6.10); White Blood Count 7.01 K/ul (4.8-10.8)
[2023-11-27 08:08] LABS: Albumin Globulin Ratio 1.1 (0.9-2); Albumin Level 3.9 gm/dl (3.4-5.0); BUN Creatinine Ratio 18.8 (10-20); Calcium 9.3 mg/dl (8.6-10.3); Creatinine Clr Calc Pharmacy 47.6 ml/min; Est GFR (African American) 57.7 ml/min; Est GFR (Non-African American) 49.8 ml/min; Globulin 3.4 gm/dl (2.5-4.0); Magnesium 1.6 mg/dl (1.7-2.4); Phosphorus 1.7 mg/dl (2.5-4.9); Total Protein 7.3 gm/dl (6.0-8.3)
[2023-11-27] MEDS: predniSONE 20 MG TAB PO SCH ×2 (09:46→12:35)
[2023-11-27] MEDS ORDERED: SODIUM PHOSPHATE 3 MMOL/1 ML INFUSION IV STA (11:17)
[2023-11-27] MEDS ORDERED: SODIUM PHOSPHATE 30 MMOL in SODIUM CHLORIDE 0.9% 500 ML IV ONE (11:45)
--- NOTE | 2023-11-27 12:00 | Fluoroscopy Report ---
MODIFIED BARIUM SWALLOW CLINICAL HISTORY: assess for aspiration COMPARISON STUDY: None. FLUOROSCOPY TIME: 2.01 minutes. Ka, r: 23.4 mGy. TECHNIQUE: A modified barium swallow was performed in conjunction with Speech Pathology. The patient ingested varying consistencies of barium containing material. Video fluoroscopy was performed. FINDINGS: Small amount of silent tracheal aspiration was noted with thin liquids via cup. There was p enetration with nectar thick liquids without aspiration. No aspiration was identified with pudding co nsistency or crackers and pudding consistencies. Epiglottic inversion was normal. Laryngeal elevation was normal. Although suboptimally assessed on this exam, there is at least moderate esophageal dysmo tility. IMPRESSION: 1. Small amount of silent tracheal aspiration with thin liquids by cup. No aspiration with remainder of the consistencies. 2. At least moderate esophageal dysmotility. 3. Full recommendations by Speech pathology to follow. ACT 112: Negative or not required by law. Electronically signed by: Kiet Fabian M.D. 11/27/2023 11:58 AM
[2023-11-27] MEDS ORDERED: GADOBUTROL 65ML VIAL IV ONE (12:13)
[2023-11-27] MEDS: CYANOCOBALAMIN (B-12) 500 MCG TABLET PO SCH (12:35)
[2023-11-27] MEDS: CHOLECALCIFEROL 400 UNITS 10 MCG TAB PO SCH (12:36)
[2023-11-27] MEDS: CLOPIDOGREL BISULFATE 75 MG TAB PO SCH (12:36)
[2023-11-27] MEDS: pyRIDostigmine bromide 60 MG TAB PO SCH ×3 (12:36→17:27)
[2023-11-27] MEDS: POTASSIUM CITRATE 10 MEQ TAB PO SCH (12:36)
[2023-11-27] MEDS: COLESTIPOL HCL 1 GM TAB PO SCH (12:36)
[2023-11-27] MEDS: AMIODARONE 200 MG TAB PO SCH (12:37)
--- NOTE | 2023-11-27 12:39 | Magnetic Resonance Report ---
MR angio head wo con HISTORY: 83 years-old Male change mentation, myasthenia gravis acutely altered mental status with he adache COMPARISON: Brain MRI of same day, MRA of the head 01/14/2018 TECHNIQUE: MRA of the head was obtained without the use of IV contrast utilizing 3-D [id number] s equencing with tip reformats. All measurements were obtained according to NASCET criteria. FINDINGS: Motion degraded exam. Polypoid because of thickening of the maxillary sinuses incidentally noted. The brain MRI is dictated separately. The visualized portions of the bilateral internal carotid arteries appear patent. The visualized ante rior and middle cerebral arteries also appear patent. The distal vertebral arteries, basilar and post erior cerebral arteries appear unremarkable. There is no aneurysm, dissection, high-grade stenosis or arterial occlusion identified by MRA. IMPRESSION: Unremarkable motion degraded MRA. ACT 112: Negative or not required by law. The above report was generated using voice recognition software. It may contain grammatical, syntax o r spelling errors. Electronically signed by: Narinder Royal M.D. 11/27/2023 12:38 PM
--- NOTE | 2023-11-27 13:06 | Magnetic Resonance Report ---
MR brain wo/w con HISTORY: 83 years-old Male change in mentation, new onset headache Headache with altered mental stat us. COMPARISON: MRA of the head of same day, CT head 11/26/2023. TECHNIQUE: Multiplanar and multisequence MRI of the brain was obtained both with and without the use of IV contrast. FINDINGS: No restricted diffusion. This study is motion degraded. Degenerative changes of the imaged cervical s pine. No acute intracranial hemorrhage, midline shift, abnormal intra-axial collection, hydrocephalus or intra-axial mass is identified. The cerebral venous sinuses and major arterial flow voids appear patent. Skull, orbits and soft tissu es are unremarkable. Prior bilateral lens repair. Mild polypoid mucosal thickening of the maxillary s inuses. Rightward bowing and spurring of the nasal septum. Trace right mastoid effusion. Involutional changes. Minimal T2/FLAIR hyperintense foci throughout the white matter, suggestive of p robable chronic microvascular ischemic disease. No abnormal enhancement is identified. IMPRESSION: 1. Motion degraded exam without acute intracranial abnormality identified. 2. No acute or subacute infarct. 3. Involutional changes with suggestion of minimal chronic microvascular ischemic disease. 4. No abnormal enhancement. ACT 112: Negative or not required by law. The above report was generated using voice recognition software. It may contain grammatical, syntax o r spelling errors. Dictated: 11/27/2023 12:22 PM Transcribed: 11/27/2023 12:38 PM Meño [id number] [email or web address] Electronically signed by: Narinder Royal M.D. 11/27/2023 1:05 PM
[2023-11-27] MEDS: ASPIRIN 81 MG CHEW PO SCH (14:15)
[2023-11-27] MEDS ORDERED: MAGNESIUM SULFATE / D5W 1 GM/100 ML BAG IV SCH (14:30)
--- NOTE | 2023-11-27 14:35 | Hospitalist Progress Note ---
Date of Service November 27, 2023 Assessment & Plan (1) Dysphagia causing pulmonary aspiration with swallowing: (2) New onset headache: (3) Myasthenia gravis: (4) Symptomatic bradycardia: (5) Atrial fibrillation: (6) DM II (diabetes mellitus, type II), controlled: (7) Obstructive uropathy: Plan Mr. Huizar is an 83 year old gentleman with history of paroxysmal atrial fibrillation now s/p Watchman 09/28, myasthenia gravis, hypertension, HLD, DMTII, progressive dysphagia who is presenting to [facility] ED due to worsening headaches, dysphagia, and episode of confusion and admitted on 11/26 for evaluation of such. Patient with complex medical history and notable overlap of symptoms. Cardiology to assess for candidacy of pacemaker given issues with bradycardia, as well as complications with recurrent a fib rvr. Neurology to assess for any optimization or concerns regarding MG Speech on consult: video swallow completed 11/27 notable for esophageal dysfunction and reflux Today with notable delirium that did improve as day progressed, however, no easily reoriented. Will continue to monitor mental status closely and stay in close communication with Neurology. 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 Saturnino Mckinley -09/06/2023, Was considering Azathioprine but 2/2 labs draws declined; prompting increase Mestinon 60mg QID and Mestinon TS 180mg qhs -New headache with right occipital distributing, sharp down neck -Episode of delirium almost, with screaming in chair for help feeling as if he was "in the car" -s/p 10mg DEX IV in ED -Continue mestinon 60mg QID, request family to bring in Mestinon 180mg qhs -Neurology consult, appreciate recommendations -start 60mg prednisone taper (60 x 1 week then down titrate slow) -MRI/MRA pending for brain #Recurrent mechanical falls #Ambulatory dysfunction #Prior subdural hematoma -traumatic fall 12/2021 with hematoma noted -PT/OT -Fall precautions #Hypothyroidism -TSH 12.54, free T4 0.85, on amiodarone CTM, historically untreated 2/2 ongoing MG #Paroxysmal Atrial Fibrillation s/p watchman #Chronic RBBB #Symptomatic bradycardia [id number] 3, HASBLED 2 01/2022, newly diagnosed A Fib RVR, discharged with amiodarone; discontinued 11/2022, however reverted back to a fib and placed on amio/metoprolol/dilt s/p cardioversion Followed with Dr Mcneil 05/2023 during admission, during that time amiodarone continued, metoprolol Watchman placed 09/2023 -On amiodarone 200mg daily -Placed on DAPT post watchman to continue for reportedly 6 months, then asa 81 indefinitely -Continue ASA and plavix -Cardiology consult -Continue amiodarone -Possible pacemaker per cards -Monitor on Telemetry #Hypoglycemia #DMTII -BG 67 on admission D5LR while NPO, d/c now that speech cleared for PO Hypogylcemia protocol A1C 6.0 #HTN Takes amlodipine and losartan -Holding both 2/2 hypotension on arrival and poor po intake #Carotid stenosis s/p CEA #HLD Continue pravastatin #Chronic diarrhea Continue home colestipol #Urinary urgency #Recurrent nephrolithiasis #Renal Cysts -Failed Gemtesa, trospium, myrbetriq, follows Dr. Broussard; OP recommendation include limit salt, prioritize hydration -Continue potassium citrate 10meq daily DVT ppx: heparin/SCDs Admit to med/tele Neuro/Cards on consult PT/OT Dispo contingent upon GI and neuro, suspect potential for rehab, onoing dispo planning Admission and Anticipated Discharge Date Admission Date: November 26, 2023 Subjective Delirious this morning, unable to redirect--stating "dog is outside, get the dog, close the door" Re-evaluated later in the morning--better, weak appearing, more dysarthric and slow Able to participate in video swallow and follow commands Denies any concerns on exam, but seemed bewildered at being in the hospital Afebrile, vitals stable labs with electrolyte dyscrasias being fixed Physical Exam Constitutional: disoriented, alert to self, initially not redirectable, but able to follow commands later in morning Respiratory: diminished breath sounds 2/2 effort, but no distress or accessory use, oxygen requirement Cardiovascular: bradycardic Gastrointestinal (Abdomen): normal bowel sounds, soft, nontender, no hepatosplenomegaly Results & Data Results & Data Vital Signs (Past 12 Hours) Vital Signs Temp Pulse Pulse Resp BP BP Pulse Ox 11/27/23 12:55 59 L 122/63 99 11/27/23 12:55 11/27/23 08:00 36.5 C 71 18 124/61 93 11/27/23 07:17 71 11/27/23 03:04 36.3 C L 66 18 143/54 H 94 Pulse Ox O2 Del Method O2 Del Method 11/27/23 12:55 Room Air 11/27/23 12:55 99 Room Air 11/27/23 08:00 Room Air 11/27/23 07:17 11/27/23 03:04 Room Air Laboratory Results Short CBC 11/27/23 Range/Units 06:55 WBC 7.01 (4.8-10.8) K/ul Hgb 12.4 L (14.0-18.0) g/dl Hct 39.4 L (42.0-52.0) % Plt Count 156 (130-400) K/uL BMP 11/27/23 06:55 Sodium 141 Potassium 4.0 Chloride 108 H Carbon Dioxide 24 BUN 25 H Creatinine 1.33 Glucose 142 H Calcium 9.3 Liver Function 11/27/23 Range/Units 06:55 Total Bilirubin 1.0 (0.2-1.0) mg/dl AST 22 (13-39) U/L ALT 13 (7-52) U/L Alkaline Phosphatase 69 (34-104) U/L Albumin 3.9 (3.4-5.0) gm/dl Medications Administered Home Medications Medication Instructions Recorded Confirmed Last Taken pravastatin 40 mg tablet 40 mg PO HS 12/23/21 11/26/23 03/10/23 pyridostigmine bromide 60 mg 60 mg PO 4XD 12/23/21 11/26/23 03/10/23 tablet (Mestinon) acetaminophen 325 mg capsule 650 mg PO QID PRN Pain 01/21/22 11/26/23 10/31/22 10:00 (Tylenol) losartan 50 mg tablet 50 mg PO DAILY 10/20/22 11/26/23 03/10/23 amiodarone 200 mg tablet 200 mg PO DAILY 05/28/23 11/26/23 05/28/23 08:00 amlodipine 5 mg tablet 5 mg PO DAILY 11/26/23 11/26/23 Unknown aspirin 81 mg chewable tablet 81 mg PO DAILY 11/26/23 11/26/23 Unknown clopidogrel 75 mg tablet 75 mg PO DAILY 11/26/23 11/26/23 Unknown cyanocobalamin (vitamin B-12) 500 500 mcg PO QAM 11/26/23 11/26/23 Unknown mcg tablet (Vitamin B-12) ergocalciferol (vitamin D2) 10 mcg 10 mcg PO DAILY 11/26/23 11/26/23 Unknown (400 unit) tablet potassium 1 tab PO DAILY 11/26/23 11/26/23 Unknown pyridostigmine bromide 180 mg 180 mg PO HS 11/26/23 11/26/23 Unknown tablet,extended release Active Medications Generic Name Dose Route Start Last Admin Trade Name Hemalq PRN Reason Stop Dose Admin Amiodarone HCl 200 mg 11/27/23 09:00 11/27/23 12:37 Amiodarone 200 Mg Tab PO 12/27/23 08:59 200 mg DAILY NAREN Administration Aspirin 81 mg 11/27/23 09:00 11/27/23 14:15 Aspirin 81 Mg Chew PO 12/27/23 08:59 81 mg DAILY NAREN Administration Clopidogrel Bisulfate 75 mg 11/27/23 09:00 11/27/23 12:36 Clopidogrel Bisulfate 75 Mg Tab PO 12/27/23 08:59 75 mg DAILY NAREN Administration Colestipol HCl 1 gm 11/26/23 22:00 11/27/23 12:36 Colestipol Hcl 1 Gm Tab PO 12/26/23 21:59 1 gm BID@1000,2200 NAREN Administration Cyanocobalamin 500 mcg 11/27/23 09:00 11/27/23 12:35 Cyanocobalamin (B-12) 500 Mcg Tablet PO 12/27/23 08:59 500 mcg QAM NAREN Administration Heparin Sodium (Porcine) 5,000 units 11/26/23 14:00 11/27/23 14:15 Heparin Sod 5,000 Unit/0.5 Ml Vial SQ 12/26/23 13:59 5,000 units Q8 NAREN Administration Dextrose/Lactated Ringer's 1,000 mls @ 80 mls/hr 11/26/23 08:00 11/27/23 12:30 D5w And Lactated Ringers IV 12/26/23 07:59 0 mls/hr .[id number] N[facility]EN Infusion Ceftriaxone Sodium 2,000 mg/ 50 mls @ 100 mls/hr 11/26/23 18:00 11/26/23 18:42 Dextrose IV 11/28/23 17:59 Infused Q24H NAREN Infusion Protocol Sodium Phosphate 30 mmol/ 510 mls @ 88 mls/hr 11/27/23 11:45 11/27/23 12:31 Sodium Chloride IV 11/27/23 17:32 88 mls/hr ONE ONE Administration Miscellaneous 1 each 11/26/23 16:00 11/27/23 14:13 Pyridostigmine Sustained Rel 180 Mg Tabcr: Order Awaiting Action N/A 12/26/23 15:59 Not Given QS NAREN Potassium Citrate 10 meq 11/27/23 09:00 11/27/23 12:36 Potassium Citrate 10 Meq Tab PO 12/27/23 08:59 10 meq QAM NAREN Administration Pravastatin Sodium 40 mg 11/26/23 21:00 11/26/23 21:39 Pravastatin Sod 40 Mg Tab PO 12/26/23 20:59 40 mg HS NAREN Administration Prednisone 60 mg 11/27/23 09:00 11/27/23 12:35 Prednisone 20 Mg Tab PO 12/27/23 08:59 60 mg DAILY NAREN Administration Pyridostigmine [place] 60 mg 11/26/23 08:55 11/27/23 14:15 Pyridostigmine [place] 60 Mg Tab PO 12/26/23 08:54 60 mg QID NAREN Administration Vitamin D 400 units 11/27/23 09:00 11/27/23 12:36 Cholecalciferol 400 Units 10 Mcg Tab PO 12/27/23 08:59 400 units DAILY NAREN Administration
--- NOTE | 2023-11-27 14:50 | Neurology Progress Note ---
Date of Service November 27, 2023 Assessment & Plan (1) Myasthenia gravis: Plan 83 y/o male with history of myasthenia gravis, HTN, DM, ICH, and atrial fibrillation s/p watchmen's that presented with headache and possible episode of hallucinations. MRI brain today motion degraded with no obvious evidence of acute intracranial findings. Would continue treatment of possible UTI. Concern for delirium. If no improvement, would consider repeat MRI. 1. Neurochecks q4 2. Continue home mestinon regimen 3. On prednisone 60 mg with plan for one week course, if decline after initiation of prednisone consider taper/d/c 4. TSH, B12, ESR, CRP 5. EEG 6. Frequent reorientation, minimize use of sedatives, mobilize as able 7. On ceftriaxone 8. Consider avoiding IV magnesium if possible 9. Cardiology following regarding bradycardia 10. If no improvement, will consider repeat MRI in 1-2 days Subjective Telehealth Information I performed this visit using a real-time telehealth connection between my location and the patients location ([facility]). After connecting through interactive tele-video, patient was identified by name and date of and/or wristband check.Patient (or authorized healthcare telemarketing sales representative) was informed that this was a telemedicine visit and it was being conducted confidentially over secure lines. My office door was closed and no one else was present in the room with me.Patient (or authorized healthcare telemarketing sales representative) provided consent to proceed with the visit, expressed an understanding of privacy and security of the telemedicine visit, and gave permission to have a hospital telemarketing sales representative in the room in order to assist with the visit and to conduct portions of the visit, as needed. I informed the patient (or authorized healthcare telemarketing sales representative) that I reviewed their record and presented the opportunity for them to ask any questions regarding the visit today. The patient agreed to participate. The patient's nurse reports confusion this am that improved during the day and again worsened in the evening. He did have an MRI brain completed today after confusion was noted. Physical Exam Awake, alert, and oriented to self Intermittently follows simple commands. Blinks to threat bilaterally EOMI appear grossly intact No facial asymmetry Moves all four extremities equally, moves bilateral upper extremities antigravity, moves bilateral lower extremities within plane of bed Withdraws/grimaces to noxious stimuli in all four extremities Results & Data Vital Signs (Past 12 Hours) Vital Signs Temp Pulse Pulse Resp BP BP Pulse Ox 11/27/23 12:55 59 L 122/63 99 11/27/23 12:55 11/27/23 08:00 36.5 C 71 18 124/61 93 11/27/23 07:17 71 11/27/23 03:04 36.3 C L 66 18 143/54 H 94 Pulse Ox O2 Del Method O2 Del Method 11/27/23 12:55 Room Air 11/27/23 12:55 99 Room Air 11/27/23 08:00 Room Air 11/27/23 07:17 11/27/23 03:04 Room Air Laboratory Results WBC 7.01, HGB 12.4, HCT 39.4, Plt 156, NA 141, Potassium 4.0, Chloride 108, Carbon dioxide 24, BUN 25, Creatinine 1.33, [place] 142, Phosphoous 1.7, Magnesium 1.6, AST 22, ALT 13 Diagnostic Findings CTH 11/26: No acute findings in the head/brain. MRI brain 11/27: 1. Motion degraded exam without acute intracranial abnormality identified. 2. No acute or subacute infarct. 3. Involutional changes with suggestion of minimal chronic microvascular ischemic disease. 4. No abnormal enhancement. MRA 11/27: Unremarkable motion degraded MRA.
--- NOTE | 2023-11-27 17:46 | Cardiology Progress Note ---
Date of Service November 27, 2023 Assessment & Plan (1) Sinus bradycardia: Plan: SR noted. Heart rates stable in the 60s to 70s. No emergent indication for pacemaker, and at present I am not certain that such a procedure would change his ultimate trajectory. (2) RBBB: (3) Atrial fibrillation: Plan: Continue amiodarone (4) HLD (hyperlipidemia): Plan: continue pravastatin (5) Myasthenia gravis: Plan: this is possibly contributing to his falls and weakness Admission and Anticipated Discharge Date Admission Date: November 26, 2023 Subjective Patient without complaint today from a cardiac perspective. SR in the 60s to 70s noted. Physical Exam Constitutional: no acute distress Respiratory: normal respiratory effort, lungs clear to auscultation Cardiovascular: RRR, no murmur, no edema Neurologic: mild diffuse weakness, cognitive impairment. Results & Data Vital Signs (Past 12 Hours) Vital Signs Temp Pulse Pulse Resp BP BP Pulse Ox 11/27/23 17:17 67 11/27/23 16:07 36.4 C L 57 L 17 132/67 93 11/27/23 12:55 59 L 122/63 99 11/27/23 12:55 11/27/23 08:00 11/27/23 08:00 36.5 C 71 18 124/61 93 11/27/23 07:17 71 Pulse Ox O2 Del Method O2 Del Method 11/27/23 17:17 11/27/23 16:07 Room Air 11/27/23 12:55 Room Air 11/27/23 12:55 99 Room Air 11/27/23 08:00 Room Air 11/27/23 08:00 Room Air 11/27/23 07:17
[2023-11-27] MEDS: cefTRIAXone SODIUM 2,000 MG in DEXTROSE 5 % MINI-B 50 ML IV SCH (18:18)
[2023-11-27] MEDS ORDERED: Nursing to Pharmacy Communication SCH (19:00)
[2023-11-27] MEDS ORDERED: PYRIDOSTIGMINE SUSTAINED REL 180 MG TABCR PO SCH (21:00)
[2023-11-27] MEDS ORDERED: NON-FORMULARY PATIENT'S OWN MED SCH (22:00)
[2023-11-28] MEDS: PRAVASTATIN SOD 40 MG TAB PO SCH ×2 (00:09→20:34)
[2023-11-28] MEDS: HEPARIN SOD 5,000 UNIT/0.5 ML VIAL SQ SCH ×4 (00:09→21:25)
[2023-11-28] MEDS: pyRIDostigmine bromide 60 MG TAB PO SCH ×5 (00:09→20:34)
[2023-11-28] MEDS: PYRIDOSTIGMINE SUSTAINED REL 180 MG TABCR PO SCH ×2 (00:10→21:26)
[2023-11-28] MEDS: COLESTIPOL HCL 1 GM TAB PO SCH ×3 (00:17→21:27)
[2023-11-28] MEDS ORDERED: OLANZapine 10 MG/2.1 ML SDV IM STA (03:25)
[2023-11-28] MEDS: D5W AND LACTATED RINGERS 1,000 ML IV SCH ×2 (06:38→21:25)
--- NOTE | 2023-11-28 07:20 | Hospitalist Progress Note ---
Date of Service November 28, 2023 Assessment & Plan (1) Dysphagia causing pulmonary aspiration with swallowing: (2) New onset headache: (3) Myasthenia gravis: (4) Symptomatic bradycardia: (5) Atrial fibrillation: (6) DM II (diabetes mellitus, type II), controlled: (7) Obstructive uropathy: Plan Mr. Huizar is an 83 year old gentleman with history of paroxysmal atrial fibrillation now s/p Watchman 09/28, myasthenia gravis, hypertension, HLD, DMTII, progressive dysphagia who is presenting to [facility] due to worsening headaches, dysphagia, and episode of confusion and admitted on 11/26 for evaluation of such. Patient with complex medical history and notable overlap of symptoms. Cardiology to assess for candidacy of pacemaker given issues with bradycardia, as well as complications with recurrent a fib rvr. Neurology to assess for any optimization or concerns regarding MG Speech on consult: video swallow completed 11/27 notable for esophageal dysfunction and reflux From 11/27 and today, notable delirium. 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, MG, hospitalization -Delirium precautions: attempting reorientation -Discussed with neuro, continue steroids at this time -Repeat infectious work up -Biofire 11/26 negative -Continue CTX -Repeat UA -KUB to assess for constipation contributing -B12 >1500, Crp <0.5, ESR 51 #Abnormal UA UA did not reflex -Continue CTX given profound delirium #Mild/moderate oropharyngeal dysphagia #Esophageal dysfunction #Progressive dysphagia, +silent aspiration #Increased secretions -Patient evaluated by HEMANTH Walton 10/05/2023, plans for EGD -Speech evaluated patient -VFSS notable for silent aspiration -Easy to chew diet, no straws, aspiration precautions -Consult GI -No interventions at this time -To tolerate feeding tube: -resolve delirium, determine goals with family, dobhoff with feeds to assess tolerance -Protonix BID IV in interim #Right Occipital Headache, x2 weeks #Episode of confusion, altered mental status #Myasthenia Gravis -Follow neurology, Dr. Saturnino Mckinley -Called and spoke with Dr Mckinley, continue course as set for now -09/06/2023, Was considering Azathioprine but 2/2 labs draws declined; prompting increase Mestinon 60mg QID and Mestinon TS 180mg qhs -New headache with right occipital distributing, sharp down neck -Episode of delirium almost, with screaming in chair for help feeling as if he was "in the car" -s/p 10mg DEX IV in ED -Continue mestinon 60mg QID, -Continue Mestinon TS 180mg qhs -Neurology consult, appreciate recommendations -Continue 60mg prednisone taper (60 x 1 week then down titrate slow) --12/03 decrease planned contingent on course -MRI/MRA unremarkable #Recurrent mechanical falls #Ambulatory dysfunction #Prior subdural hematoma -traumatic fall 12/2021 with hematoma noted -PT/OT -Fall precautions #Hypothyroidism -TSH 12.54, free T4 0.85, on amiodarone CTM, historically untreated 2/2 ongoing MG #Paroxysmal Atrial Fibrillation s/p watchman #Chronic RBBB #Symptomatic bradycardia [id number] 3, HASBLED 2 01/2022, newly diagnosed A Fib RVR, discharged with amiodarone; discontinued 11/2022, however reverted back to a fib and placed on amio/metoprolol/dilt s/p cardioversion Followed with Dr Mcneil 05/2023 during admission, during that time amiodarone continued, metoprolol Watchman placed 09/2023 -On amiodarone 200mg daily -Placed on DAPT post watchman to continue for reportedly 6 months, then asa 81 indefinitely -Continue ASA and plavix -Cardiology consult -Continue amiodarone -No device at this time -Monitor on Telemetry #Hypoglycemia #DMTII -BG 67 on admission D5LR while NPO, d/c now that speech cleared for PO Hypogylcemia protocol A1C 6.0 #HTN Takes amlodipine and losartan -Holding both 2/2 hypotension on arrival and poor po intake #Carotid stenosis s/p CEA #HLD Continue pravastatin #Chronic diarrhea Continue home colestipol #Urinary urgency #Recurrent nephrolithiasis #Renal Cysts -Failed Gemtesa, trospium, myrbetriq, follows Dr. Broussard; OP recommendation include limit salt, prioritize hydration -Continue potassium citrate 10meq daily DVT ppx: heparin/SCDs Admit to med/tele Neuro/Cards on consult PT/OT Dispo contingent upon neuro and improvement of mentation , suspect potential for rehab, onoing dispo planning Admission and Anticipated Discharge Date Admission Date: November 26, 2023 Subjective No improvement in mental status, maintaining airway; delirious will vocalize to name but otherwise incoherent Called [facility] and spoke to Dr. Saturnino Mckinley, patient's neurologist this morning: states that current plan is ideal, but patient has been historically difficult to manage. Recently discussed Imuran, but patient declined 2/2 frequent lab draws [id number]. No further recommendations base upon patient history Physical Exam Constitutional: WD/WN, vitals as above altered, delirious, vocalizing but not coherent Respiratory: gurgling oropharynx diminished lung sounds Cardiovascular: RRR, no murmur, no edema Gastrointestinal (Abdomen): normal bowel sounds, soft, nontender, no hepatosplenomegaly Results & Data Results & Data Vital Signs (Past 12 Hours) Vital Signs Temp Pulse Pulse Resp BP Pulse Ox O2 Del Method 11/28/23 04:09 36.4 C L 101 H 18 154/78 H 93 Room Air 11/28/23 03:00 Room Air 11/27/23 23:10 36.3 C L 55 L 18 142/76 H 92 Room Air 11/27/23 21:59 57 L 11/27/23 20:09 36.2 C L 60 18 131/59 L 96 Room Air Laboratory Results Short CBC 11/28/23 Range/Units 07:42 WBC 7.67 (4.8-10.8) K/ul Hgb 12.2 L (14.0-18.0) g/dl Hct 37.1 L (42.0-52.0) % Plt Count 156 (130-400) K/uL BMP 11/28/23 07:42 Sodium 141 Potassium 3.5 Chloride 107 Carbon Dioxide 26 BUN 19 Creatinine 1.16 Glucose 129 H Calcium 9.2 Medications Administered Home Medications Medication Instructions Recorded Confirmed Last Taken pravastatin 40 mg tablet 40 mg PO HS 12/23/21 11/26/23 03/10/23 pyridostigmine bromide 60 mg 60 mg PO 4XD 12/23/21 11/26/23 03/10/23 tablet (Mestinon) acetaminophen 325 mg capsule 650 mg PO QID PRN Pain 01/21/22 11/26/23 10/31/22 10:00 (Tylenol) losartan 50 mg tablet 50 mg PO DAILY 10/20/22 11/26/23 03/10/23 amiodarone 200 mg tablet 200 mg PO DAILY 05/28/23 11/26/23 05/28/23 08:00 amlodipine 5 mg tablet 5 mg PO DAILY 11/26/23 11/26/23 Unknown aspirin 81 mg chewable tablet 81 mg PO DAILY 11/26/23 11/26/23 Unknown clopidogrel 75 mg tablet 75 mg PO DAILY 11/26/23 11/26/23 Unknown cyanocobalamin (vitamin B-12) 500 500 mcg PO QAM 11/26/23 11/26/23 Unknown mcg tablet (Vitamin B-12) ergocalciferol (vitamin D2) 10 mcg 10 mcg PO DAILY 11/26/23 11/26/23 Unknown (400 unit) tablet potassium 1 tab PO DAILY 11/26/23 11/26/23 Unknown pyridostigmine bromide 180 mg 180 mg PO HS 11/26/23 11/26/23 Unknown tablet,extended release Active Medications Generic Name Dose Route Start Last Admin Trade Name Hemalq PRN Reason Stop Dose Admin Amiodarone HCl 200 mg 11/27/23 09:00 11/28/23 09:40 Amiodarone 200 Mg Tab PO 12/27/23 08:59 200 mg DAILY [facility] Administration Aspirin 81 mg 11/27/23 09:00 11/28/23 11:18 Aspirin 81 Mg Chew PO 12/27/23 08:59 Not Given DAILY [facility] Clopidogrel Bisulfate 75 mg 11/27/23 09:00 11/28/23 11:19 Clopidogrel Bisulfate 75 Mg Tab PO 12/27/23 08:59 Not Given DAILY [facility] Colestipol HCl 1 gm 11/26/23 22:00 11/28/23 09:40 Colestipol Hcl 1 Gm Tab PO 12/26/23 21:59 1 gm BID@1000,2200 [facility] Administration Cyanocobalamin 500 mcg 11/27/23 09:00 11/28/23 11:19 Cyanocobalamin (B-12) 500 Mcg Tablet PO 12/27/23 08:59 Not Given QAM [facility] Heparin Sodium (Porcine) 5,000 units 11/26/23 14:00 11/28/23 13:09 Heparin Sod 5,000 Unit/0.5 Ml Vial SQ 12/26/23 13:59 5,000 units Q8 [facility] Administration Dextrose/Lactated Ringer's 1,000 mls @ 80 mls/hr 11/26/23 08:00 11/28/23 06:38 D5w And Lactated Ringers IV 12/26/23 07:59 80 mls/hr .[id number] [facility] Administration Ceftriaxone Sodium 2,000 mg/ 50 mls @ 100 mls/hr 11/26/23 18:00 11/27/23 18:48 Dextrose IV 11/28/23 17:59 Infused Q24H [facility] Infusion Protocol Potassium Citrate 10 meq 11/27/23 09:00 11/28/23 11:19 Potassium Citrate 10 Meq Tab PO 12/27/23 08:59 Not Given QAM [facility] Pravastatin Sodium 40 mg 11/26/23 21:00 11/28/23 00:09 Pravastatin Sod 40 Mg Tab PO 12/26/23 20:59 40 mg HS [facility] Administration Pyridostigmine [place] 60 mg 11/26/23 08:55 11/28/23 12:54 Pyridostigmine [place] 60 Mg Tab PO 12/26/23 08:54 60 mg QID [facility] Administration Pyridostigmine [place] 180 mg 11/27/23 22:00 11/28/23 00:10 Pyridostigmine Sustained Rel 180 Mg Tabcr PO 12/27/23 20:59 Not Given DAILY@2200 [facility] Vitamin D 400 units 11/27/23 09:00 11/28/23 11:18 Cholecalciferol 400 Units 10 Mcg Tab PO 12/27/23 08:59 Not Given DAILY [facility]EN
[2023-11-28 08:18] LABS: Hematocrit (blood only) 37.1 % (42.0-52.0); Hemoglobin 12.2 g/dl (14.0-18.0); Mean Corpuscular Hgb Conc 32.9 g/dL (32.0-36.0); Mean Corpuscular Volume 88.3 fL (80.0-100.0); Mean Platelet Volume 11.9 fL (9.4-12.4); Platelet Count 156 K/uL (130-400); RDW Coefficient of Variation 15.6 % (11.5-14.5); RDW Standard Deviation 50.1 fL (36.4-46.3); White Blood Count 7.67 K/ul (4.8-10.8)
--- NOTE | 2023-11-28 08:21 | Gastrointestinal Consultation ---
Date of Consultation November 28, 2023 Assessment & Plan (1) Dysphagia causing pulmonary aspiration with swallowing: Pt is a 83 yo male w Afib s/p Watchmann procedure, myasthenia gravis, w dysphagia and aspiration. EGD exam last month normal, attempted esophageal dilation to 48Fr wo improvement of symptoms. Video swallow showed aspiration w thin liquids. On exam, he is alert but unresponsive. Has delirium and on restraints - Primary team managing delirium - PPI daily - Reflux and aspiration precaution - Diet per ST recs - Suspect low yield with esophageal manometry study; dysphagia likely related to his myasthenia gravis. Unfortunately could not offer any further GI intervention and thus will sign off Supervising Physician Co-Signing Physician Notes I saw and evaluated the patient. Unfortunately he is unable to provide any historical information today due to an altered mental status. Of note the patient was seen by one of my partners as an outpatient and recently underwent an upper endoscopy with empiric dilation to 48 [place]ones[place]. Unfortunately this did not appear to help his symptoms of dysphagia. The patient was then seen by speech pathology who identified the likely etiology of oropharyngeal dysphagia related to the patient's underlying neurologic problems. Unfortunately there is not a specific gastroenterology option for this patient. Would recommend further discussion with speech pathology about dietary recommendations. Please call our service with any additional questions or concerns. Given the patient's mental status changes we may want to consider further evaluation by neurology given the patient's history of myasthenia gravis. History of Present Illness Reason for Consultation: Dysphagia Requesting Physician: Dr. Anette Pedraza Attending Physician: Dr. Ed Horton History of Present Illness Pt is awake but not responsive today. Unable to obtain information from him. Chart was reviewed: Pt is a 83 yo male w PMHx of Afib s/p Watchmann procedure, myasthenia gravis, HTN, HLD, DM II, who is seen for progressive dysphagia. Pt has aspiration with food, and trouble with taking pills, coughing up secretions. He has had EGD w dilation of esophagus to 48Fr on 10/2023. EGD exam w esophageal bx were unremarkable. Video swallow study w speech therapy eval while admitted here showed silent tracheal aspiration w thin liquids, moderate esophageal dysmotility Allergies Allergy/AdvReac Type Severity Reaction Status Date / Time felodipine Allergy Intermediate hives Verified 06/28/23 14:36 flunisolide Allergy Unknown other Verified 06/28/23 14:36 gabapentin AdvReac Intermediate GI SYMPTOMS Verified 06/28/23 14:36 Thiazides AdvReac Intermediate CAUSED GOUT Verified 06/28/23 14:36 Home Medications Medication Instructions Recorded Confirmed Type pravastatin 40 mg tablet 40 mg PO HS 12/23/21 11/26/23 History pyridostigmine bromide 60 mg 60 mg PO 4XD 12/23/21 11/26/23 History tablet (Mestinon) acetaminophen 325 mg capsule 650 mg PO QID PRN Pain 01/21/22 11/26/23 History (Tylenol) losartan 50 mg tablet 50 mg PO DAILY 10/20/22 11/26/23 History amiodarone 200 mg tablet 200 mg PO DAILY 05/28/23 11/26/23 History amlodipine 5 mg tablet 5 mg PO DAILY 11/26/23 11/26/23 History aspirin 81 mg chewable tablet 81 mg PO DAILY 11/26/23 11/26/23 History clopidogrel 75 mg tablet 75 mg PO DAILY 11/26/23 11/26/23 History cyanocobalamin (vitamin B-12) 500 500 mcg PO QAM 11/26/23 11/26/23 History mcg tablet (Vitamin B-12) ergocalciferol (vitamin D2) 10 mcg 10 mcg PO DAILY 11/26/23 11/26/23 History (400 unit) tablet potassium 1 tab PO DAILY 11/26/23 11/26/23 History pyridostigmine bromide 180 mg 180 mg PO HS 11/26/23 11/26/23 History tablet,extended release Patient History Medical History Carotid stenosis s/p carotid endarterectomy, side unknown Left ureteral stone Kidney lesion Atrial fibrillation [facility] [place] [facility]ST VISIT 07/2022 MDD (major depressive disorder) DM II (diabetes mellitus, type II), controlled diet controlled, no longer on meds HLD (hyperlipidemia) HTN (hypertension) History of subarachnoid hemorrhage 12/2021 Myasthenia gravis IBS (irritable bowel syndrome) Surgical History History of carotid endarterectomy done about 5 yrs ago, [facility] [place] Hx of cystoscopy w/ stent 10/20/22 MAC. Post-op anesthesia progress note: "slightly hypotensive but is close to his preoperative baseline and has been receiving Vancomycin through his IV. His other vital signs are stable." History of vasectomy S/P cholecystectomy Family History Father Stroke Social History Smoking Status: Never smoker Tobacco Type: Cigarettes Second Hand Exposure: No; Do You Dip or Chew Tobacco: No; Hx Alcohol Use: No Hx Substance Use: No Preferred Language: Italian Communication Ability: Effective Visual Impairment: No Limitations [employer] Solder Leveler Required: No Beliefs That Will Affect Care: None marital status: Current Living Situation: Spouse current occupational status: retired Feels Safe at Home: Yes caffeine: Yes Assistive Devices: Cane and Walker Review of Systems Review of Systems: Unobtainable due to cognitive status Physical Exam Constitutional: WD/WN, vitals as above + altered mental status and + frail appearing Eyes: PERRL, conjunctivae normal, anicteric sclerae ENMT: external ear and nose normal, oropharynx normal Respiratory: Diminished lung sounds Cardiovascular: RRR, no murmur, no edema Gastrointestinal (Abdomen): normal bowel sounds, soft, nontender, no hepatosplenomegaly Skin: no rashes, warm and dry Psychiatric: Alert, non responsive to communicate/follow instruction Lymphatic: no lymphedema Results & Data Vital Signs (Past 12 Hours) Vital Signs Temp Pulse Pulse Resp BP BP Pulse Ox 11/28/23 07:57 36.5 C 58 L 16 164/71 H 95 11/28/23 04:09 36.4 C L 101 H 18 154/78 H 93 11/28/23 03:00 11/27/23 23:10 36.3 C L 55 L 18 142/76 H 92 11/27/23 21:59 57 L O2 Del Method 11/28/23 07:57 Room Air 11/28/23 04:09 Room Air 11/28/23 03:00 Room Air 11/27/23 23:10 Room Air 11/27/23 21:59
[2023-11-28 08:31] LABS: Anion Gap 8 (3-11); BUN Creatinine Ratio 16.4 (10-20); Blood Urea Nitrogen 19 mg/dl (6-23); C Reactive Protein < 0.50 mg/dl (0-0.5); Calcium 9.2 mg/dl (8.6-10.3); Carbon Dioxide 26 mmol/L (21-32); Chloride 107 mmol/L (98-107); Creatinine Clr Calc Pharmacy 54.9 ml/min; Est GFR (African American) 68.1 ml/min; Est GFR (Non-African American) 58.7 ml/min; Glucose 129 mg/dl (70-99(Fasting)); Potassium 3.5 mmol/L (3.5-5.1); Sodium 141 mmol/L (136-145)
[2023-11-28] MEDS ORDERED: predniSONE 20 MG TAB PO SCH (09:25)
[2023-11-28] MEDS: AMIODARONE 200 MG TAB PO SCH (09:40)
[2023-11-28] MEDS: ASPIRIN 81 MG CHEW PO SCH (11:18)
[2023-11-28] MEDS: CHOLECALCIFEROL 400 UNITS 10 MCG TAB PO SCH (11:18)
[2023-11-28] MEDS: CYANOCOBALAMIN (B-12) 500 MCG TABLET PO SCH (11:19)
[2023-11-28] MEDS: CLOPIDOGREL BISULFATE 75 MG TAB PO SCH (11:19)
[2023-11-28] MEDS ORDERED: predniSONE 20 MG TAB PO STA (11:19)
[2023-11-28] MEDS: POTASSIUM CITRATE 10 MEQ TAB PO SCH (11:19)
--- NOTE | 2023-11-28 14:42 | Cardiology Progress Note ---
Date of Service November 28, 2023 Assessment & Plan (1) Sinus bradycardia: Plan: SR noted. Heart rates stable in the 50s- 70s. No emergent indication for pacemaker, and at present I am not certain that such a procedure would change his ultimate trajectory. (2) RBBB: (3) Atrial fibrillation: Plan: Continue amiodarone (4) HLD (hyperlipidemia): Plan: continue pravastatin (5) Myasthenia gravis: Plan: this is possibly contributing to his falls and weakness Admission and Anticipated Discharge Date Admission Date: November 26, 2023 Subjective Patient seen in follow-up of bradycardia. No additional additive subjective history available per interview with patient due to mental status. Telemetry reveals sinus rhythm in the 50s to 60s. Physical Exam Constitutional: no acute distress Respiratory: normal respiratory effort, lungs clear to auscultation Cardiovascular: RRR, no murmur, no edema Neurologic: Cognitive impairment Results & Data Vital Signs (Past 12 Hours) Vital Signs Temp Pulse Pulse Resp BP BP Pulse Ox 11/28/23 12:00 11/28/23 11:28 36.5 C 101 H 16 140/68 93 11/28/23 08:22 54 L 11/28/23 07:57 36.5 C 58 L 16 164/71 H 95 11/28/23 04:09 36.4 C L 101 H 18 154/78 H 93 11/28/23 03:00 Pulse Ox O2 Del Method O2 Del Method 11/28/23 12:00 93 Room Air 11/28/23 11:28 Room Air 11/28/23 08:22 11/28/23 07:57 Room Air 11/28/23 04:09 Room Air 11/28/23 03:00 Room Air
--- NOTE | 2023-11-28 15:08 | XRay Report ---
XR KUB/Abdomen 1 view CLINICAL HISTORY: assess stool burden TECHNIQUE: 1 view of the abdomen was obtained. Comparison: Comparison is made to CT abdomen pelvis 10/20/2022 FINDINGS: Lung bases are unremarkable. The osseous structures are grossly unremarkable. The bowel gas pattern i s nonobstructive. Small stool burden is seen. Retained contrast is noted in the transverse colon. IMPRESSION: Minimal stool burden. Retained contrast is incidentally seen. ACT 112: Negative or not required by law. Electronically signed by: Juan Mason M.D. 11/28/2023 3:07 PM
[2023-11-28] MEDS ORDERED: PIPER/TAZO 4.5g in D5W MINI-B 100 ML IV ONE (18:00)
--- NOTE | 2023-11-28 18:38 | CT Scan Report ---
CT head/brain wo con CLINICAL HISTORY: 83 years-old Male with ams. Acutely altered mental status TECHNIQUE: Multiple axial CT images of the head were obtained without contrast. A dose lowering tech nique was utilized adhering to the principles of ALARA. CT DOSE: 1250.21 mGy.cm COMPARISON: 11/26/2023 FINDINGS: No acute intracranial hemorrhage, midline shift, intracranial mass, hydrocephalus, territorial ischem ia or abnormal extra-axial collection. Involutional changes with chronic microvascular ischemic disea se and unchanged ventriculomegaly. Calcifications of the falx cerebri. Motion degraded exam. The calvarium is intact. Prior bilateral lens repair. Mild polypoid mucosal thickening of the maxilla ry sinuses. Rightward bowing and spurring of the nasal septum. IMPRESSION: Motion degraded exam without acute intracranial abnormality identified. ACT 112: Negative or not required by law. The above report was generated using voice recognition software. It may contain grammatical, syntax o r spelling errors. Electronically signed by: Narinder Royal M.D. 11/28/2023 6:36 PM
--- NOTE | 2023-11-28 19:21 | Neurology Progress Note ---
Date of Service November 28, 2023 Assessment & Plan (1) Myasthenia gravis: Plan 83 y/o male with history of myasthenia gravis, HTN, DM, ICH, and atrial fibrillation s/p watchmen's that presented with headache and possible episode of hallucinations, now with encephalopathy. 1. EEG pending, may need to consider LTM 2. Will plan for repeat MRI brain tomorrow if no improvement 3. LP 4. Neurochecks q4 5. Continue home mestinon regimen 6. On prednisone 60 mg with plan for one week course, if no other clear contributors to ams identified, could consider prednisone taper/d/c 7. TSH 8. Frequent reorientation, minimize use of sedatives, mobilize as able 9. Temporal artery ultrasound 10. Abx coverage to be widened per primary, agree with repeat infectious studies including CXR given new oxygen requirement 11. Consider infectious disease consultation Subjective Telehealth Information I performed this visit using a real-time telehealth connection between my location and the patients location ([facility]). After connecting through interactive tele-video, patient was identified by name and date of and/or wristband check.Patient (or authorized healthcare automobile rental representative) was informed that this was a telemedicine visit and it was being conducted confidentially over secure lines. My office door was closed and no one else was present in the room with me.Patient (or authorized healthcare automobile rental representative) provided consent to proceed with the visit, expressed an understanding of privacy and security of the telemedicine visit, and gave permission to have a hospital automobile rental representative in the room in order to assist with the visit and to conduct portions of the visit, as needed. I informed the patient (or authorized healthcare automobile rental representative) that I reviewed their record and presented the opportunity for them to ask any questions regarding the visit today. The patient agreed to participate. Physical Exam Lethargic, opens eyes to voice Low volume speech, unintelligible Follows few simple commands. No facial asymmetry Moves all four extremities equally, moves bilateral upper extremities antigravity, moves bilateral lower extremities within plane of bed Withdraws/grimaces to noxious stimuli in all four extremities Results & Data Vital Signs (Past 12 Hours) Vital Signs Temp Pulse Pulse Resp BP Pulse Ox Pulse Ox 11/28/23 16:16 63 11/28/23 15:34 36.7 C 66 16 151/75 H 94 01/23/24 12:00 93 11/28/23 11:28 36.5 C 101 H 16 140/68 93 11/28/23 11:00 11/28/23 08:22 54 L 11/28/23 07:57 36.5 C 58 L 16 164/71 H 95 O2 Del Method O2 Del Method O2 Flow Rate 11/28/23 16:16 11/28/23 15:34 Nasal Cannula 2 11/28/23 12:00 Room Air 11/28/23 11:28 Room Air 11/28/23 11:00 Room Air 11/28/23 08:22 11/28/23 07:57 Room Air Laboratory Results WBC 7.67, HGB 12.2, HCT 37.1,1 Plts 156, ESR 51, Sodium 141, Potassium 3.5, Chloride 107, Carbon Dioxide 26, BUN 19, Creatinine 1.16, Glucose 129, CRP < 0.50, B12 > 1500 Diagnostic Findings [facility] 11/28/2023:Motion degraded exam without acute intracranial abnormality identified. MRI brain 11/27:1. Motion degraded exam without acute intracranial abnormality identified. 2. No acute or subacute infarct. 3. Involutional changes with suggestion of minimal chronic microvascular ischemic disease. 4. No abnormal enhancement.
[2023-11-28] MEDS: PANTOprazole 40 MG in SYRINGE 0 ML IV SCH (20:33)
[2023-11-28] MEDS: PIPERACILLIN/TAZOBACTAM 4.5 GM in DEXTROSE 5% MINI-B 100 ML IV SCH (23:11)
[2023-11-29] MEDS: HEPARIN SOD 5,000 UNIT/0.5 ML VIAL SQ SCH (05:46)
[2023-11-29] MEDS: PIPERACILLIN/TAZOBACTAM 4.5 GM in DEXTROSE 5% MINI-B 100 ML IV SCH ×2 (06:17→15:10)
[2023-11-29 06:29] LABS: Hemoglobin 13.1 g/dl (14.0-18.0); Mean Corpuscular Hemoglobin 29.3 pg (25.0-34.0); Mean Corpuscular Volume 91.7 fL (80.0-100.0); Mean Platelet Volume 11.6 fL (9.4-12.4); Platelet Count 145 K/uL (130-400); RDW Coefficient of Variation 15.6 % (11.5-14.5); RDW Standard Deviation 51.8 fL (36.4-46.3); Red Blood Count 4.47 M/uL (4.70-6.10); White Blood Count 7.68 K/ul (4.8-10.8)
[2023-11-29 06:41] LABS: BUN Creatinine Ratio 14.6 (10-20); Calcium 9.3 mg/dl (8.6-10.3); Creatinine Clr Calc Pharmacy 50.9 ml/min; Est GFR (African American) 63.4 ml/min; Est GFR (Non-African American) 54.7 ml/min; Magnesium 1.7 mg/dl (1.7-2.4); Phosphorus 2.3 mg/dl (2.5-4.9); Potassium 3.5 mmol/L (3.5-5.1)
--- NOTE | 2023-11-29 06:43 | Electroencephalogram ---
EEG Procedure Note Date of Service November 28, 2023 Start / End Times Start Time: 12:01 End Time: 12:[address] Pedraza History A 83 year old male with altered mental status. EEG performed for evaluation of epileptiform activity. Home Medication List Medication Instructions Recorded Confirmed Type pravastatin 40 mg tablet 40 mg PO HS 12/23/21 11/26/23 History pyridostigmine bromide 60 mg 60 mg PO 4XD 12/23/21 11/26/23 History tablet (Mestinon) acetaminophen 325 mg capsule 650 mg PO QID PRN Pain 01/21/22 11/26/23 History (Tylenol) losartan 50 mg tablet 50 mg PO DAILY 10/20/22 11/26/23 History amiodarone 200 mg tablet 200 mg PO DAILY 05/28/23 11/26/23 History amlodipine 5 mg tablet 5 mg PO DAILY 11/26/23 11/26/23 History aspirin 81 mg chewable tablet 81 mg PO DAILY 11/26/23 11/26/23 History clopidogrel 75 mg tablet 75 mg PO DAILY 11/26/23 11/26/23 History cyanocobalamin (vitamin B-12) 500 500 mcg PO QAM 11/26/23 11/26/23 History mcg tablet (Vitamin B-12) ergocalciferol (vitamin D2) 10 mcg 10 mcg PO DAILY 11/26/23 11/26/23 History (400 unit) tablet potassium 1 tab PO DAILY 11/26/23 11/26/23 History pyridostigmine bromide 180 mg 180 mg PO HS 11/26/23 11/26/23 History tablet,extended release Inpatient Medication List Amiodarone HCl (Amiodarone 200 Mg Tab) 200 mg PO DAILY [facility] Stop: 12/27/23 08:59 Last Admin: 11/28/23 09:40 Dose: 200 mg Documented By: Admin: 11/27/23 12:37 Dose: 200 mg Documented By: AMS Aspirin (Aspirin 81 Mg Chew) 81 mg PO DAILY [facility] Stop: 12/27/23 08:59 Last Admin: 11/28/23 11:18 Dose: Not Given Documented By: Admin: 11/27/23 14:15 Dose: 81 mg Documented By: AMS Clopidogrel Bisulfate (Clopidogrel Bisulfate 75 Mg Tab) 75 mg PO DAILY [facility] Stop: 12/27/23 08:59 Last Admin: 11/28/23 11:19 Dose: Not Given Documented By: Admin: 11/27/23 12:36 Dose: 75 mg Documented By: PIPPA Colestipol HCl (Colestipol Hcl 1 Gm Tab) 1 gm PO BID@1000,2200 [facility] Stop: 12/26/23 21:59 Last Admin: 11/28/23 21:27 Dose: 1 gm Documented By: Admin: 11/28/23 09:40 Dose: 1 gm Documented By: Admin: 11/28/23 00:17 Dose: Not Given Documented By: AMS(2) Admin: 11/27/23 12:36 Dose: 1 gm Documented By: Admin: 11/26/23 21:39 Dose: 1 gm Documented By: JOSE RAUL Cyanocobalamin (Cyanocobalamin (B-12) 500 Mcg Tablet) 500 mcg PO QAM [facility] Stop: 12/27/23 08:59 Last Admin: 11/28/23 11:19 Dose: Not Given Documented By: Admin: 11/27/23 12:35 Dose: 500 mcg Documented By: PIPPA Heparin Sodium (Porcine) (Heparin Sod 5,000 Unit/0.5 Ml Vial) 5,000 units SQ Q8 [facility] Stop: 12/26/23 13:59 Last Admin: 11/29/23 05:46 Dose: 5,000 units Documented By: Admin: 11/28/23 21:25 Dose: 5,000 units Documented By: Admin: 11/28/23 13:09 Dose: 5,000 units Documented By: Admin: 11/28/23 06:38 Dose: 5,000 units Documented By: AMS(2) Admin: 11/28/23 00:09 Dose: 5,000 units Documented By: AMS(2) Admin: 11/27/23 14:15 Dose: 5,000 units Documented By: Admin: 11/27/23 05:17 Dose: 5,000 units Documented By: Admin: 11/26/23 21:40 Dose: 5,000 units Documented By: Admin: 11/26/23 13:31 Dose: 5,000 units Documented By: MAURISIO Dextrose/Lactated Ringer's (D5w And Lactated Ringers) 1,000 mls @ 80 mls/hr IV .[id number] [facility] Stop: 12/26/23 07:59 Last Admin: 11/28/23 21:25 Dose: 80 mls/hr Documented By: Infusion: 11/28/23 21:25 Dose: Infused Documented By: Infusion: 11/28/23 18:39 Dose: 0 mls/hr Documented By: Admin: 11/28/23 06:38 Dose: 80 mls/hr Documented By: AMS(2) Infusion: 11/28/23 05:57 Dose: Infused Documented By: AMS(2) Admin: 11/27/23 17:27 Dose: 80 mls/hr Documented By: Infusion: 11/27/23 17:25 Dose: Infused Documented By: Infusion: 11/27/23 12:30 Dose: 0 mls/hr Documented By: Admin: 11/27/23 02:17 Dose: 80 mls/hr Documented By: Infusion: 11/26/23 21:37 Dose: Infused Documented By: Infusion: 11/26/23 18:42 Dose: 80 mls/hr Documented By: Infusion: 11/26/23 18:27 Dose: 0 mls/hr Documented By: Admin: 11/26/23 08:52 Dose: 80 mls/hr Documented By: ML Pantoprazole Sodium 40 mg/ (Syringe) 10 mls @ 5 mls/min IV BID [facility] Stop: 12/28/23 20:59 Last Admin: 11/28/23 20:33 Dose: 5 mls/min Documented By: CF Piperacillin Sod/Tazobactam (Sod 4.5 gm/ Dextrose) 100 mls @ 25 mls/hr IV Q8H [facility]; Protocol Stop: 11/30/23 22:59 Last Admin: 11/29/23 06:17 Dose: 25 mls/hr Documented By: Infusion: 11/29/23 04:36 Dose: Infused Documented By: Admin: 11/28/23 23:11 Dose: 25 mls/hr Documented By: CF Potassium Citrate (Potassium Citrate 10 Meq Tab) 10 meq PO QAM [facility] Stop: 12/27/23 08:59 Last Admin: 11/28/23 11:19 Dose: Not Given Documented By: Admin: 11/27/23 12:36 Dose: 10 meq Documented By: AMS Pravastatin Sodium (Pravastatin Sod 40 Mg Tab) 40 mg PO HS [facility] Stop: 12/26/23 20:59 Last Admin: 11/28/23 20:34 Dose: 40 mg Documented By: Admin: 11/28/23 00:09 Dose: 40 mg Documented By: AMS(2) Admin: 11/26/23 21:39 Dose: 40 mg Documented By: JOSE RAUL Pyridostigmine [place] (Pyridostigmine [place] 60 Mg Tab) 60 mg PO QID [facility] Stop: 12/26/23 08:54 Last Admin: 11/28/23 20:34 Dose: 60 mg Documented By: Admin: 11/28/23 17:43 Dose: 60 mg Documented By: Admin: 11/28/23 12:54 Dose: 60 mg Documented By: Admin: 11/28/23 09:34 Dose: 60 mg Documented By: Admin: 11/28/23 00:09 Dose: 60 mg Documented By: AMS(2) Admin: 11/27/23 17:27 Dose: 60 mg Documented By: Admin: 11/27/23 14:15 Dose: 60 mg Documented By: Admin: 11/27/23 12:36 Dose: 60 mg Documented By: Admin: 11/26/23 21:40 Dose: 60 mg Documented By: JOSE RAUL Admin: 11/26/23 16:35 Dose: 60 mg Documented By: Admin: 11/26/23 13:31 Dose: 60 mg Documented By: Admin: 11/26/23 11:03 Dose: 60 mg Documented By: LATOSHA Pyridostigmine [place] (Pyridostigmine Sustained Rel 180 Mg Tabcr) 180 mg PO DAILY@2200 [facility] Stop: 12/27/23 20:59 Last Admin: 11/28/23 21:26 Dose: 180 mg Documented By: Admin: 11/28/23 00:10 Dose: Not Given Documented By: AMS(2) Vitamin D (Cholecalciferol 400 Units 10 Mcg Tab) 400 units PO DAILY [facility] Stop: 12/27/23 08:59 Last Admin: 11/28/23 11:18 Dose: Not Given Documented By: Admin: 11/27/23 12:36 Dose: 400 units Documented By: PIPPA Discontinued Medications Aspirin (Aspirin 81 Mg Ectab) 81 mg PO NOW STA Stop: 11/26/23 08:54 Last Admin: 11/26/23 11:08 Dose: 81 mg Documented By: PIETRO Aspirin (Aspirin 81 Mg Ectab) Confirm Administered Dose 81 mg PO .STK-MED ONE Stop: 11/26/23 11:08 Last Admin: 11/26/23 11:08 Dose: Not Given Documented By: PIETRO Clopidogrel Bisulfate (Clopidogrel Bisulfate 75 Mg Tab) 75 mg PO NOW ONE Stop: 11/26/23 08:54 Last Admin: 11/26/23 11:08 Dose: 75 mg Documented By: PIETRO Clopidogrel Bisulfate (Clopidogrel Bisulfate 75 Mg Tab) Confirm Administered Dose 75 mg .ROUTE .STK-MED ONE Stop: 11/26/23 11:08 Last Admin: 11/26/23 11:08 Dose: Not Given Documented By: PIETRO Dexamethasone Sodium Phosphate (DexamethasonePf 10 Mg/Ml Vial) 10 mg IV NOW ONE Stop: 11/26/23 07:01 Last Admin: 11/26/23 07:35 Dose: 10 mg Documented By: LATOSHA Gadobutrol (Gadobutrol 65ml Vial) 9 ml IV ONCE ONE Stop: 11/27/23 12:14 Last Admin: 11/27/23 11:52 Dose: 9 ml Documented By: GEORGE Sodium Chloride (Nss) 500 mls @ 999 mls/hr IV .Q31M ONE Stop: 11/26/23 05:30 Last Infusion: 11/26/23 05:54 Dose: Infused Documented By: Admin: 11/26/23 05:14 Dose: 999 mls/hr Documented By: AUGUSTO Ceftriaxone Sodium 2,000 mg/ (Dextrose) 50 mls @ 100 mls/hr IV Q24H [facility]; Protocol Stop: 11/28/23 17:59 Last Infusion: 11/27/23 18:48 Dose: Infused Documented By: PIPPA(2) Admin: 11/27/23 18:18 Dose: 100 mls/hr Documented By: Infusion: 11/26/23 18:42 Dose: Infused Documented By: Admin: 11/26/23 18:12 Dose: 100 mls/hr Documented By: MAURISIO Sodium Phosphate 30 mmol/ (Sodium Chloride) 510 mls @ 88 mls/hr IV ONE ONE Stop: 11/27/23 17:32 Last Infusion: 11/27/23 18:21 Dose: Infused Documented By: Admin: 11/27/23 12:31 Dose: 88 mls/hr Documented By: PIPPA Magnesium Sulfate/Dextrose (Magnesium Sulfate / D5w) 1 gm in 100 mls @ 50 mls/hr IV Q2H [facility] Stop: 11/27/23 18:29 Last Admin: 11/27/23 16:03 Dose: Not Given Documented By: AMS Piperacillin Sod/Tazobactam (Sod 4.5 gm/ Dextrose) 100 mls @ 200 mls/hr IV NOW ONE; Protocol Stop: 11/28/23 18:29 Last Infusion: 11/28/23 20:47 Dose: Infused Documented By: Admin: 11/28/23 18:49 Dose: 200 mls/hr Documented By: PIPPA Miscellaneous (Pyridostigmine Sustained Rel 180 Mg Tabcr: Order Awaiting Action) 1 each N/A QS [facility] Stop: 12/26/23 15:59 Last Admin: 11/27/23 14:13 Dose: Not Given Documented By: Admin: 11/27/23 07:21 Dose: Not Given Documented By: Admin: 11/27/23 01:16 Dose: Not Given Documented By: Admin: 11/26/23 15:21 Dose: Not Given Documented By: Olanzapine (Olanzapine 10 Mg/2.1 Ml Sdv) 2.5 mg IM NOW STA Stop: 11/28/23 03:26 Last Admin: 11/28/23 04:15 Dose: 2.5 mg Documented By: PIPPA(2) Prednisone (Prednisone 20 Mg Tab) 60 mg PO DAILY [facility] Stop: 12/27/23 08:59 Last Admin: 11/27/23 12:35 Dose: 60 mg Documented By: PIPPA Prednisone (Prednisone 20 Mg Tab) 60 mg PO NOW [facility] Stop: 11/28/23 11:20 Last Admin: 11/28/23 11:55 Dose: 60 mg Documented By: PIPPA Description This is a 21 electrode EEG with a single channel dedicated to limited EKG. The electrodes were placed in accordance with the International 10-20 system. REPORT: At the onset of the EEG the patient is awake. The background is continuous with loss of the normal anterior to posterior gradient. The background consist of generalized theta activity with some intermixed faster frequencies. Photic does not induce any additional abnormalities. No stage II sleep transients are seen. Interpretation IMPRESSION: This is an abnormal awake and drowsy routine EEG due to generalized background slowing suggestive of a non specific encephalopathy. There is no evidence of epileptiform activity.
--- NOTE | 2023-11-29 07:26 | Hospitalist Progress Note ---
Date of Service November 29, 2023 Assessment & Plan (1) Dysphagia causing pulmonary aspiration with swallowing: (2) New onset headache: (3) Myasthenia gravis: (4) Symptomatic bradycardia: (5) Atrial fibrillation: (6) DM II (diabetes mellitus, type II), controlled: (7) Obstructive uropathy: Plan Mr. Huizar is an 83 year old gentleman with history of paroxysmal atrial fibrillation now s/p Watchman 09/28, myasthenia gravis, hypertension, HLD, DMTII, progressive dysphagia who is presenting to [facility] ED due to worsening headaches, dysphagia, and episode of confusion and admitted on 11/26 for evaluation of such. Patient with complex medical history and notable overlap of symptoms. Cardiology to assess for candidacy of pacemaker given issues with bradycardia, as well as complications with recurrent a fib rvr. Neurology to assess for any optimization or concerns regarding MG Speech on consult: video swallow completed 11/27 notable for esophageal dysfunction and reflux At baseline on 11/26, patient is A04 and aware of medical conditions, though with some dysarthria, still interactive/mobile. From 11/27 onward, patient's delirium has progressed quite notably. He is making minimal vocalization, progressive insufficient swallowing, and no meaningful interaction with examination. ID consulted, plan for meningitis treatment until LP can be obtained. Neurology: given progressive decline and limited imaging, will transfer patient to [facility]. [facility] [place], but no bed availability. Respiratory status remains stable, however, contingency plan for transfer to [facility] 08/11 if respiratory status declines, then notification to ICU. 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 received 10mg decacron in ED 11/26 -R/o infectious etiology contributing to profound ams -Delirium precautions: attempting reorientation -Discussed with neuro, continue steroids at this time -Unable to take by mouth, will hold 11/29 -Repeat infectious work up -Biofire 11/26 negative, repeat 11/29 negative -Continue zosyn -CT ABD/P r/o insidious infection -MRSA nares negative, hold Vanc -Repeat UA clean 11/29 -Will add lyme/tick panel given neck/occipital pain reported -Plan for ID consult this am, reviewed recommendations -Discontinue Zosyn, does not cross BBB -Start CTX 2g q24, ampcillin 2g q4, acyclovir 10mg/kg q8, vanc per pharm -Imaging: CT trace pulm edema, effusions: s/p IV lasix 11/29, no fluid collections, signs of infection - -KUB to assess for constipation contributing -minor stool burden -CXR given intermittent O2 requirement -Plan to coordinate LP; however, unable to obtain giving plavix last received 11/27 -Holding plavix, patient unable to manage PO at this time regardless -Continue to discuss if unable to transfer in timely manner -B12 >1500, Crp <0.5, ESR 51 #Abnormal UA UA did not reflex -Repeat infectious workup given profound delirium -UA negative 11/29 #Mild/moderate oropharyngeal dysphagia #Esophageal dysfunction #Progressive dysphagia, +silent aspiration #Increased secretions -Patient evaluated by HEMANTH Walton 10/05/2023, plans for EGD -Speech evaluated patient -VFSS notable for silent aspiration -Easy to chew diet, no straws, aspiration precautions -Consult GI -No interventions at this time -To tolerate feeding tube: -resolve delirium, determine goals with family, dobhoff with feeds to assess tolerance -Will readdress when delirium resolved -Protonix BID IV in interim -Discussed airway protection with ICU: plan for transition to [facility] 08/11 if airway compromise, however, will need close monitoring as patient cannot protect airway #Right Occipital Headache, x2 weeks #Episode of confusion, altered mental status #Myasthenia Gravis -Follow neurology, Dr. Saturnino Mckinley -Called and spoke with Dr Mckinley, continue course as set for now -09/06/2023, Was considering Azathioprine but 2/2 labs draws declined; prompting increase Mestinon 60mg QID and Mestinon TS 180mg qhs -New headache with right occipital distributing, sharp down neck -Episode of delirium almost, with screaming in chair for help feeling as if he was "in the car" -s/p 10mg DEX IV in ED -Continue mestinon 60mg QID,held 2/2 NPO -Continue Mestinon TS 180mg qhs,held 2/2 NPO -Neurology consult, appreciate recommendations -Started on 60mg prednisone taper (60 x 1 week then down titrate slow) --12/03 decrease planned contingent on course -Reduced to 30mg 11/29 given profound delirium in case steroids contributing, suspect likely as this current state present on day 2 of admission, however, delusional event prompted presentation therefore prudent to r/o infectious etiology -Unable to take dose on 11/29 -MRI/MRA unremarkable -Temporal artery US unable to obtain at [facility] -NIF testing unable to obtain at [facility] -Lyme serology ordered -EEG +encephalopathy #Recurrent mechanical falls #Ambulatory dysfunction #Prior subdural hematoma -traumatic fall 12/2021 with hematoma noted -PT/OT -Fall precautions #Hypothyroidism -TSH 12.54, free T4 0.85, on amiodarone CTM, historically untreated 2/2 ongoing MG Repeat per Neurology: TSH 9 #Paroxysmal Atrial Fibrillation s/p watchman #Chronic RBBB #Symptomatic bradycardia [id number] 3, HASBLED 2 01/2022, newly diagnosed A Fib RVR, discharged with amiodarone; discontinued 11/2022, however reverted back to a fib and placed on amio/metoprolol/dilt s/p cardioversion Followed with Dr Mcneil 05/2023 during admission, during that time amiodarone continued, metoprolol Watchman placed 09/2023 -On amiodarone 200mg daily -Placed on DAPT post watchman to continue for reportedly 6 months, then asa 81 indefinitely -Continue ASA and plavix, held 2/2 NPO -Cardiology consult -Continue amiodarone ,held 2/2 NPO -No device at this time -Monitor on Telemetry #Hypoglycemia #DMTII -BG 67 on admission D5LR while NPO, d/c now that speech cleared for PO Hypogylcemia protocol A1C 6.0 #HTN Takes amlodipine and losartan -Holding both 2/2 hypotension on arrival and poor po intake #Carotid stenosis s/p CEA #HLD Continue pravastatin,held 2/2 NPO #Chronic diarrhea Continue home colestipol ,held 2/2 NPO #Urinary urgency #Recurrent nephrolithiasis #Renal Cysts -Failed Gemtesa, trospium, myrbetriq, follows Dr. Broussard; OP recommendation include limit salt, prioritize hydration -Continue potassium citrate 10meq daily,held 2/2 NPO DVT ppx: heparin/SCDs Admit to med/tele Neuro/Cards on consult PT/OT Transfer planning Admission and Anticipated Discharge Date Admission Date: November 26, 2023 Subjective Acute events: Dose reduced prednisone after discussion with neuro Shavon Avery, repeat infectious work up, CXR ordered Remains in soft restraints EEG unrevealing No clear infectious source This morning more altered than prior. No longer taking medications. Awake, maintaining airway, but not following commands, not swallowing well, Review of Systems Review of Systems: Unobtainable due to cognitive status Physical Exam Constitutional: awake, not alert/responsive, making incoherent vocalization, moving arms and legs, nonmeaningful movements Eyes: does not appear to be blinking, eyes openstaring upward Respiratory: maintaining air way, occasional snoring, saturating on room air in low-mid 90s. Gastrointestinal (Abdomen): normal bowel sounds, soft, nontender, no hepatosplenomegaly Results & Data Results & Data Vital Signs (Past 12 Hours) Vital Signs Temp Pulse Pulse Resp BP Pulse Ox O2 Del Method 11/29/23 00:00 73 11/28/23 23:52 36.8 C 64 18 113/61 91 Room Air 11/28/23 20:16 36.9 C 60 18 151/75 H 94 Nasal Cannula O2 Flow Rate 11/29/23 00:00 11/28/23 23:52 11/28/23 20:16 2 Laboratory Results Short CBC 11/29/23 Range/Units 06:06 WBC 7.68 (4.8-10.8) K/ul Hgb 13.1 L (14.0-18.0) g/dl Hct 41.0 L (42.0-52.0) % Plt Count 145 (130-400) K/uL BMP 11/29/23 06:06 Sodium 144 Potassium 3.5 Chloride 107 Carbon Dioxide 29 BUN 18 Creatinine 1.23 Glucose 122 H Calcium 9.3 Urine 11/29/23 Range/Units 09:10 Urine Color Yellow Urine Appearance Clear (Clear) Urine pH 8.0 H (4.5-7.5) Ur Specific [place] 1.016 (1.000-1.030) Urine Protein Negative (Negative) Urine Glucose (UA) Negative (Negative) Medications Administered Home Medications Medication Instructions Recorded Confirmed Last Taken pravastatin 40 mg tablet 40 mg PO HS 12/23/21 11/26/23 03/10/23 pyridostigmine bromide 60 mg 60 mg PO 4XD 02/11/26/23 03/10/23 tablet (Mestinon) acetaminophen 325 mg capsule 650 mg PO QID PRN Pain 01/21/22 11/26/23 10/31/22 10:00 (Tylenol) losartan 50 mg tablet 50 mg PO DAILY 10/20/22 11/26/23 03/10/23 amiodarone 200 mg tablet 200 mg PO DAILY 05/28/23 11/26/23 05/28/23 08:00 amlodipine 5 mg tablet 5 mg PO DAILY 11/26/23 11/26/23 Unknown aspirin 81 mg chewable tablet 81 mg PO DAILY 11/26/23 11/26/23 Unknown clopidogrel 75 mg tablet 75 mg PO DAILY 11/26/23 11/26/23 Unknown cyanocobalamin (vitamin B-12) 500 500 mcg PO QAM 11/26/23 11/26/23 Unknown mcg tablet (Vitamin B-12) ergocalciferol (vitamin D2) 10 mcg 10 mcg PO DAILY 11/26/23 11/26/23 Unknown (400 unit) tablet potassium 1 tab PO DAILY 11/26/23 11/26/23 Unknown pyridostigmine bromide 180 mg 180 mg PO HS 11/26/23 11/26/23 Unknown tablet,extended release Active Medications Generic Name Dose Route Start Last Admin Trade Name Monica PRN Reason Stop Dose Admin Amiodarone HCl 200 mg 11/27/23 09:00 11/29/23 09:54 Amiodarone 200 Mg Tab PO 12/27/23 08:59 Not Given DAILY NAREN Aspirin 81 mg 11/27/23 09:00 11/28/23 11:18 Aspirin 81 Mg Chew PO 12/27/23 08:59 Not Given DAILY NAREN Colestipol HCl 1 gm 11/26/23 22:00 11/29/23 09:55 Colestipol Hcl 1 Gm Tab PO 12/26/23 21:59 Not Given BID@1000,2200 NAREN Cyanocobalamin 500 mcg 11/27/23 09:00 11/29/23 09:54 Cyanocobalamin (B-12) 500 Mcg Tablet PO 12/27/23 08:59 Not Given QAM [facility] Pantoprazole Sodium 40 mg/ 10 mls @ 5 mls/min 11/28/23 21:00 11/29/23 08:59 Syringe IV 12/28/23 20:59 5 mls/min BID NAREN Administration Piperacillin Sod/Tazobactam 100 mls @ 25 mls/hr 11/28/23 23:00 11/29/23 10:27 Sod 4.5 gm/ Dextrose IV 11/30/23 22:59 Infused Q8H [facility] Infusion Protocol Potassium Citrate 10 meq 11/27/23 09:00 11/29/23 09:54 Potassium Citrate 10 Meq Tab PO 12/27/23 08:59 Not Given QAM [facility] Pravastatin Sodium 40 mg 11/26/23 21:00 11/28/23 20:34 Pravastatin Sod 40 Mg Tab PO 12/26/23 20:59 40 mg HS NAREN Administration Prednisone 30 mg 11/29/23 09:00 11/29/23 09:55 Prednisone 10 Mg Tablet PO 12/29/23 08:59 Not Given DAILY [facility] Pyridostigmine [place] 60 mg 11/26/23 08:55 11/29/23 09:55 Pyridostigmine [place] 60 Mg Tab PO 12/26/23 08:54 Not Given QID [facility] Pyridostigmine [place] 180 mg 11/27/23 22:00 11/28/23 21:26 Pyridostigmine Sustained Rel 180 Mg Tabcr PO 12/27/23 20:59 180 mg DAILY@2200 [facility] Administration Vitamin D 400 units 11/27/23 09:00 11/29/23 09:54 Cholecalciferol 400 Units 10 Mcg Tab PO 12/27/23 08:59 Not Given DAILY NAREN
[2023-11-29] MEDS ORDERED: POTASSIUM PHOS 3 MMOL/1 ML INFUSION IV STA (07:33)
[2023-11-29] MEDS ORDERED: POTASSIUM PHOSPHATE 24 MMOL in SODIUM CHLORIDE 0.9% 500 ML IV ONE (08:15)
[2023-11-29 08:47] LABS: Thyroid Stimulating Hormone 9.157 uIu/ml (0.300-4.500)
[2023-11-29] MEDS: PANTOprazole 40 MG in SYRINGE 0 ML IV SCH (08:59)
[2023-11-29] MEDS ORDERED: predniSONE 10 MG TABLET PO SCH (09:00)
--- NOTE | 2023-11-29 09:06 | XRay Report ---
XR chest 1V portable CLINICAL HISTORY: Hypoxia. COMPARISON STUDY: Chest radiograph November 26, 2023. FINDINGS: Lung volumes are normal. There is no pneumothorax or pleural effusion. A device within the left atrial appendage is incidentally noted. Cardiomegaly is unchanged. Mild interstitial thickening has developed. IMPRESSION: Stable cardiomegaly. Interval development of subtle interstitial thickening which favors mild pulmonary edema. ACT 112: Negative or not required by law. Electronically signed by: Kiet Fabian M.D. 11/29/2023 9:05 AM
[2023-11-29 09:18] LABS: Lyme Ab IgG w/WB Rflx Negative (Negative); Lyme Ab IgM w/WB Rflx Negative (Negative)
[2023-11-29 09:37] LABS: Appearance Urine Clear (Clear); Bilirubin Urine Negative (Negative); Blood Urine Negative (Negative); Color Urine Yellow; Glucose Urine UA Negative (Negative); Ketones Urine Negative (Negative); Leukocyte Esterase Urine Negative (Negative); Nitrite Urine Negative (Negative); Protein Urine Negative (Negative); Specific Gravity Urine 1.016 (1.000-1.030); Urobilinogen Urine Negative (Negative)
[2023-11-29] MEDS: CYANOCOBALAMIN (B-12) 500 MCG TABLET PO SCH (09:54)
[2023-11-29] MEDS: CHOLECALCIFEROL 400 UNITS 10 MCG TAB PO SCH (09:54)
[2023-11-29] MEDS: POTASSIUM CITRATE 10 MEQ TAB PO SCH (09:54)
[2023-11-29] MEDS: AMIODARONE 200 MG TAB PO SCH (09:54)
[2023-11-29] MEDS: COLESTIPOL HCL 1 GM TAB PO SCH (09:55)
[2023-11-29] MEDS: pyRIDostigmine bromide 60 MG TAB PO SCH ×3 (09:55→15:21)
[2023-11-29 10:35] LABS: Adenovirus PCR Not Detected (NotDetected); Bordetella parapertussis PCR Not Detected (NotDetected); Bordetella pertussis PCR Not Detected (NotDetected); Chlamydia pneumoniae PCR Not Detected (NotDetected); Coronavirus 229E PCR Not Detected (NotDetected); Coronavirus CoV-2 (COVID19)PCR Not Detected (NotDetected); Coronavirus HKU1 PCR Not Detected (NotDetected); Coronavirus NL63 PCR Not Detected (NotDetected); Coronavirus OC43PCR Not Detected (NotDetected); Human Metapneumovirus PCR Not Detected (NotDetected); Influenza A PCR Not Detected (NotDetected); Influenza B PCR Not Detected (NotDetected); Mycoplasma pneumoniae PCR Not Detected (NotDetected); Parainfluenza Virus 1 PCR Not Detected (NotDetected); Parainfluenza Virus 2 PCR Not Detected (NotDetected); Parainfluenza Virus 3 PCR Not Detected (NotDetected); Parainfluenza Virus 4 PCR Not Detected (NotDetected); Respiratory Syncytial VirusPCR Not Detected (NotDetected); Rhinovirus/Enterovirus PCR Not Detected (NotDetected)
[2023-11-29] MEDS ORDERED: FUROSEMIDE INJ 20 MG/2 ML VIAL IV ONE (10:48)
[2023-11-29] MEDS: D5W AND LACTATED RINGERS 1,000 ML IV SCH (11:36)
--- NOTE | 2023-11-29 12:42 | CT Scan Report ---
CT abd pelvis IV con only CLINICAL HISTORY: infectious work up/AMS TECHNIQUE: Helical axial images of the abdomen and pelvis were obtained and displayed. Automated dose lowering techniques and/or adjustment according to patient size were utilized for this exam. This e xam was performed with intravenous contrast. CT DOSE: 2500.48 mGy.cm COMPARISON: Comparison is made to CT abdomen pelvis 10/20/2022 FINDINGS: Lower chest: No acute abnormality. Liver: Unremarkable. No focal lesions are seen. Gallbladder and biliary tree: Patient is status post cholecystectomy. Physiologic prominence of the b iliary ducts is noted. Pancreas: Unremarkable, no focal lesions. Spleen: Unremarkable. Adrenals: Unremarkable. Kidneys and ureters: Multiple cysts are seen, some measure greater than simple fluid density. Of note , the previously noted right exophytic lesion is nonenhancing and compatible with proteinaceous/hemor rhagic cyst. Bladder: Unremarkable. Reproductive organs: Prostatic calcifications are seen which may represent prior hemorrhage or granul omatous disease. Bowel: Diverticulosis is seen without diverticulitis. The appendix is normal. Lymph nodes Retroperitoneal: Unremarkable. Pelvic: Unremarkable. Mesenteric: Unremarkable. Peritoneum: Normal. Vessels: Atherosclerotic calcifications are seen. Abdominal wall: Unremarkable. Bones: Degenerative changes in the visualized spine. IMPRESSION: 1. No acute abnormalities are seen. In particular the appendix is unremarkable. 2. Multiple cysts are seen, some of which measure greater than simple fluid density, these are uncha nged from prior exam and compatible with proteinaceous/hemorrhagic cysts. ACT 112: Negative or not required by law. Electronically signed by: Juan Mason M.D. 11/29/2023 12:40 PM
--- NOTE | 2023-11-29 13:06 | Infectious Disease Consult ---
Date of Service November 29, 2023 Telehealth Information I performed this visit using a real-time telehealth connection between my location and the patients location ([facility]). After connecting through interactive tele-video, patient was identified by name and date of and/or wristband check.Patient (or authorized healthcare apprenticeship representative) was informed that this was a telemedicine visit and it was being conducted confidentially over secure lines. My office door was closed and no one else was present in the room with me.Patient (or authorized healthcare apprenticeship representative) provided consent to proceed with the visit, expressed an understanding of privacy and security of the telemedicine visit, and gave permission to have a hospital apprenticeship representative in the room in order to assist with the visit and to conduct portions of the visit, as needed. I informed the patient (or authorized healthcare apprenticeship representative) that I reviewed their record and presented the opportunity for them to ask any questions regarding the visit today. The patient agreed to participate. Assessment & Plan (1) History of myasthenia gravis: (2) Acute alteration in mental status: (3) Dysphagia: (4) New onset headache: Plan Patient with history of myasthenia gravis and chronic aspiration presenting with headaches and worsening mental status in the days leading up to admission. His delirium has rapidly progressed while in the hospital. At this point, I see no signs of active infection. He has been afebrile with normal white count. UA did not have any white cells or bacteria. Procal negative. Lyme antibody negative. Blood cultures have been negative. I would have expected bacterial meningitis to progress much more rapidly and thus this is low on the differential especially with no other signs of infection. Patient is currently receiving Zosyn. CT of the chest abdomen pelvis did not show any nidus of infection. I do not think his symptoms are infectious in nature. If an LP is being pursued, recommend being cautious and sending for bacterial, fungal, and AFB cultures as well as cell count, protein, and glucose. Would check a meningitis encephalitis PCR panel if available. Send for HSV PCR. It would be reasonable to start IV acyclovir while ruling out HSV as it could improve mortality, however, suspicion for HSV meningitis/encephalitis is very low. I would also recommend bacterial meningitis coverage if LP is being pursued. It can be discontinued if ME panel is negative. Recommendations: - Stop zosyn, does not cross BBB - Start CTX 2g BID, vanco per pharmacy, ampicillin 2g q4 - Start acyclovir 10 mg/kg q8 - Stop all abx, antivirals if ME panel is negative ATTESTATION: I saw and evaluated the patient today. I have reviewed the trainee note and agree. My additional thoughts/findingsor any changes to the planare listed below. Etiology is unclear. Pursue LP. Empiric PSYCH THERAPIST dosed ABX until LP results. Contact ID again as needed. These recommendations are not final. ID coverage changes frequently. Use the on- call schedule to find out who is covering your facility. Then, contact ID for updated recommendations. History of Present Illness History of Present Illness Reason for consult: profound ams, planning LP, any other studies? MG Patient w/ PMHx MG, DM2, progressive dysphagia who presented with worsening headaches, dysphagia, and confusion. Per H and P he has been frequently aspirating with any oral intake and has also been complaining of double vision and 2 weeks of headaches which have mostly been located in the right posterior skull radiating down the neck. November 25 he also noted an acute episode of confusion and disorientation. He does not complain of fevers, chills as an outpatient. Chest x-ray showed no signs of pneumonia. Throughout the patient's stay his delirium has worsened. Neurology is following the patient and has him on a steroid taper. CT abdomen pelvis was ordered to look for an occult infection. No abnormal findings. MRI/MRI of the head was unremarkable. Patient has been afebrile without leukocytosis throughout his stay. Initial UA was negative for white blood cells and bacteria, follow-up UA was unremarkable. Patient has had a new minimal oxygen requirement of 2 L although most recently has been on room air. Chest x-ray was concerning for volume overload. Allergies Allergy/AdvReac Type Severity Reaction Status Date / Time felodipine Allergy Intermediate hives Verified 06/28/23 14:36 flunisolide Allergy Unknown other Verified 06/28/23 14:36 gabapentin AdvReac Intermediate GI SYMPTOMS Verified 06/28/23 14:36 Thiazides AdvReac Intermediate CAUSED GOUT Verified 06/28/23 14:36 Home Medications Medication Instructions Recorded Confirmed Type pravastatin 40 mg tablet 40 mg PO HS 12/23/21 11/26/23 History pyridostigmine bromide 60 mg 60 mg PO 4XD 12/23/21 11/26/23 History tablet (Mestinon) acetaminophen 325 mg capsule 650 mg PO QID PRN Pain 01/21/22 11/26/23 History (Tylenol) losartan 50 mg tablet 50 mg PO DAILY 10/20/22 11/26/23 History amiodarone 200 mg tablet 200 mg PO DAILY 05/28/23 11/26/23 History amlodipine 5 mg tablet 5 mg PO DAILY 11/26/23 11/26/23 History aspirin 81 mg chewable tablet 81 mg PO DAILY 11/26/23 11/26/23 History clopidogrel 75 mg tablet 75 mg PO DAILY 11/26/23 11/26/23 History cyanocobalamin (vitamin B-12) 500 500 mcg PO QAM 11/26/23 11/26/23 History mcg tablet (Vitamin B-12) ergocalciferol (vitamin D2) 10 mcg 10 mcg PO DAILY 11/26/23 11/26/23 History (400 unit) tablet potassium 1 tab PO DAILY 11/26/23 11/26/23 History pyridostigmine bromide 180 mg 180 mg PO HS 11/26/23 11/26/23 History tablet,extended release Patient History Medical History Carotid stenosis s/p carotid endarterectomy, side unknown Left ureteral stone Kidney lesion Atrial fibrillation [facility] [place] [facility]IT 07/2022 MDD (major depressive disorder) DM II (diabetes mellitus, type II), controlled diet controlled, no longer on meds HLD (hyperlipidemia) HTN (hypertension) History of subarachnoid hemorrhage 12/2021 Myasthenia gravis IBS (irritable bowel syndrome) Surgical History History of carotid endarterectomy done about 5 yrs ago, [facility] [place] Hx of cystoscopy w/ stent 10/20/22 MAC. Post-op anesthesia progress note: "slightly hypotensive but is close to his preoperative baseline and has been receiving Vancomycin through his IV. His other vital signs are stable." History of vasectomy S/P cholecystectomy Family History Father Stroke Social History Smoking Status: Never smoker Tobacco Type: Cigarettes Second Hand Exposure: No; Do You Dip or Chew Tobacco: No; Hx Alcohol Use: No Hx Substance Use: No Preferred Language: Romanian Communication Ability: Effective Visual Impairment: No Limitations Wafer Production Lead Worker Required: No Beliefs That Will Affect Care: None marital status: Current Living Situation: Spouse current occupational status: retired Feels Safe at Home: Yes caffeine: Yes Assistive Devices: Cane and Walker Review of Systems Full ROS was performed and is negative unless mentioned in the HPI. Physical Exam Telemed visit, full PE not performed Pt unable to participate in conversation or exam 2/2 encephalopathy Results & Data Vital Signs (Past 12 Hours) Vital Signs Temp Pulse Pulse Resp BP Pulse Ox O2 Del Method 11/29/23 11:32 36.7 C 64 17 162/75 H 93 Room Air 11/29/23 10:10 Room Air 11/29/23 08:05 36.8 C 98 H 17 140/75 97 Room Air 11/29/23 06:20 53 L Laboratory Results Microbiology 11/26/23 02:18 Blood Aerobic Blood Culture - Preliminary No growth in Aerobic bottle after 48 hours. 11/26/23 02:18 Blood Anaerobic Blood Culture - Preliminary No growth in Anaerobic bottle after 48 hours. 11/26/23 02:26 Blood Aerobic Blood Culture - Preliminary No growth in Aerobic bottle after 48 hours. 11/26/23 02:26 Blood Anaerobic Blood Culture - Preliminary No growth in Anaerobic bottle after 48 hours. Laboratory Results - last 72 hr 11/26/23 11/27/23 11/28/23 17:25 06:55 07:42 WBC 7.01 7.67 RBC 4.35 L 4.20 L Hgb 12.4 L 12.2 L Hct 39.4 L 37.1 L MCV 90.6 88.3 MCH 28.5 29.0 MCHC 31.5 L 32.9 RDW Std Deviation 50.6 H 50.1 H RDW Coeff of [place] 15.3 H 15.6 H Plt Count 156 156 MPV 12.0 11.9 ESR 51 H Sodium 141 141 Potassium 4.0 3.5 Chloride 108 H 107 Carbon Dioxide 24 26 Anion Gap 9 8 BUN 25 H 19 Creatinine 1.33 1.16 Est Cr Clr Drug Dosing 47.6 54.9 Est GFR ( Amer) 57.7 68.1 Est GFR (Non-Af Amer) 49.8 58.7 BUN/Creatinine Ratio 18.8 16.4 Glucose 142 H 129 H POC Glucose 179 H Calcium 9.3 9.2 Phosphorus 1.7 L Magnesium 1.6 L Total Bilirubin 1.0 AST 22 ALT 13 Alkaline Phosphatase 69 C-Reactive Protein < 0.50 Total Protein 7.3 Albumin 3.9 Globulin 3.4 Albumin/Globulin Ratio 1.1 Vitamin B12 > 1500 H Procalcitonin < 0.05 TSH Free T4 Urine Color Urine Appearance Urine pH Ur Specific [place] Urine Protein Urine Glucose (UA) Urine Ketones Urine Blood Urine Nitrite Urine Bilirubin Urine Urobilinogen Ur Leukocyte Esterase Nasal Screen MRSA (PCR) Adenovirus (PCR) Anaplasma Smear Babesia Smear B. pertussis DNA (PCR) B.parapertussis DNA PCR Lyme Disease IgG Ab Lyme Disease IgM Ab C. pneumoniae DNA (PCR) Coronavirus OC43 (PCR) Coronavirus HKU1 (PCR) Coronavirus 229E (PCR) SARS-CoV-2 (PCR) Coronavirus NL63 (PCR) Human Metapneumovir PCR Influenza Type A (PCR) Influenza Type B (PCR) M. pneumoniae (PCR) Parainfluenza 1 (PCR) Parainfluenza 2 (PCR) Parainfluenza 3 (PCR) Parainfluenza 4 (PCR) RSV (PCR) Entero/Rhino (PCR) 11/29/23 11/29/23 11/29/23 06:06 07:49 09:00 WBC 7.68 RBC 4.47 L Hgb 13.1 L Hct 41.0 L MCV 91.7 MCH 29.3 MCHC 32.0 RDW Std Deviation 51.8 H RDW Coeff of [place] 15.6 H Plt Count 145 MPV 11.6 ESR Sodium 144 Potassium 3.5 Chloride 107 Carbon Dioxide 29 Anion Gap 8 BUN 18 Creatinine 1.23 Est Cr Clr Drug Dosing 50.9 Est GFR ( Amer) 63.4 Est GFR (Non-Af Amer) 54.7 BUN/Creatinine Ratio 14.6 Glucose 122 H POC Glucose Calcium 9.3 Phosphorus 2.3 L Magnesium 1.7 Total Bilirubin AST ALT Alkaline Phosphatase C-Reactive Protein Total Protein Albumin Globulin Albumin/Globulin Ratio Vitamin B12 Procalcitonin < 0.05 TSH 9.157 H Free T4 1.00 Urine Color Urine Appearance Urine pH Ur Specific [place] Urine Protein Urine Glucose (UA) Urine Ketones Urine Blood Urine Nitrite Urine Bilirubin Urine Urobilinogen Ur Leukocyte Esterase Nasal Screen MRSA (PCR) Negative Adenovirus (PCR) Anaplasma Smear See Comment Babesia Smear See Comment B. pertussis DNA (PCR) B.parapertussis DNA PCR Lyme Disease IgG Ab Negative Lyme Disease IgM Ab Negative C. pneumoniae DNA (PCR) Coronavirus OC43 (PCR) Coronavirus HKU1 (PCR) Coronavirus 229E (PCR) SARS-CoV-2 (PCR) Coronavirus NL63 (PCR) Human Metapneumovir PCR Influenza Type A (PCR) Influenza Type B (PCR) M. pneumoniae (PCR) Parainfluenza 1 (PCR) Parainfluenza 2 (PCR) Parainfluenza 3 (PCR) Parainfluenza 4 (PCR) RSV (PCR) Entero/Rhino (PCR) 11/29/23 09:10 WBC RBC Hgb Hct MCV MCH MCHC RDW Std Deviation RDW Coeff of [place] Plt Count MPV ESR Sodium Potassium Chloride Carbon Dioxide Anion Gap BUN Creatinine Est Cr Clr Drug Dosing Est GFR ( Amer) Est GFR (Non-Af Amer) BUN/Creatinine Ratio Glucose POC Glucose Calcium Phosphorus Magnesium Total Bilirubin AST ALT Alkaline Phosphatase C-Reactive Protein Total Protein Albumin Globulin Albumin/Globulin Ratio Vitamin B12 Procalcitonin TSH Free T4 Urine Color Yellow Urine Appearance Clear Urine pH 8.0 H Ur Specific [place] 1.016 Urine Protein Negative Urine Glucose (UA) Negative Urine Ketones Negative Urine Blood Negative Urine Nitrite Negative Urine Bilirubin Negative Urine Urobilinogen Negative Ur Leukocyte Esterase Negative Nasal Screen MRSA (PCR) Adenovirus (PCR) Not Detected Anaplasma Smear Babesia Smear B. pertussis DNA (PCR) Not Detected B.parapertussis DNA PCR Not Detected Lyme Disease IgG Ab Lyme Disease IgM Ab C. pneumoniae DNA (PCR) Not Detected Coronavirus OC43 (PCR) Not Detected Coronavirus HKU1 (PCR) Not Detected Coronavirus 229E (PCR) Not Detected SARS-CoV-2 (PCR) Not Detected Coronavirus NL63 (PCR) Not Detected Human Metapneumovir PCR Not Detected Influenza Type A (PCR) Not Detected Influenza Type B (PCR) Not Detected M. pneumoniae (PCR) Not Detected Parainfluenza 1 (PCR) Not Detected Parainfluenza 2 (PCR) Not Detected Parainfluenza 3 (PCR) Not Detected Parainfluenza 4 (PCR) Not Detected RSV (PCR) Not Detected Entero/Rhino (PCR) Not Detected Diagnostic Findings Chest X-Ray 11/26/23 01:56 XR chest 1V portable CLINICAL HISTORY: Weakness. COMPARISON STUDY: Chest radiograph and right rib series June 25, 2023. FINDINGS: Lung volumes are normal. Lungs are clear. There is no pneumothorax or pleural effusion. Mild cardiomegaly. Mediastinal contours are normal. There is no evidence for pulmonary edema. IMPRESSION: No acute cardiopulmonary findings. ACT 112: Negative or not required by law. Electronically signed by: Kiet Fabian M.D. 11/26/2023 7:[address] 11/26/23 02:42 Exam(s): CT HEAD Without Contrast EXAM: CT Head Without Intravenous Contrast CLINICAL HISTORY: Reason for exam: falls ; altered ms. TECHNIQUE: Axial computed tomography images of the head/brain without intravenous contrast. CTDI is 37.87 mGy and DLP is 703.85 mGy-cm. Automated exposure control was utilized for the study. A dose lowering technique was utilized adhering to the principles of ALARA. COMPARISON: CT Head dated 07/03/23 FINDINGS: Brain: Volume loss with prominent ventricles and sulci. No hemorrhage. No significant white matter disease. Ventricles: See above. Bones/joints: Unremarkable. No acute fracture. Soft tissues: Unremarkable. Sinuses: Mucus retention cysts or polyps in the maxillary sinuses. No sinus fluid levels. Mastoid air cells: Unremarkable as visualized. No mastoid effusion. Orbits: Bilateral intraocular lens implantation. IMPRESSION: No acute findings in the head/brain. Electronically signed by: Danika Perera M.D. 11/26/23 04:35 AM Head MRA 11/27/23 07:42 MR angio head wo con HISTORY: 83 years-old Male change mentation, myasthenia gravis acutely altered mental status with headache COMPARISON: Brain MRI of same day, MRA of the head 01/14/2018 TECHNIQUE: MRA of the head was obtained without the use of IV contrast utilizing 3-D [id number] sequencing with tip reformats. All measurements were obtained according to NASCET criteria. FINDINGS: Motion degraded exam. Polypoid because of thickening of the maxillary sinuses incidentally noted. The brain MRI is dictated separately. The visualized portions of the bilateral internal carotid arteries appear patent. The visualized anterior and middle cerebral arteries also appear patent. The distal vertebral arteries, basilar and posterior cerebral arteries appear unremarkable. There is no aneurysm, dissection, high-grade stenosis or arterial occlusion identified by MRA. IMPRESSION: Unremarkable motion degraded MRA. ACT 112: Negative or not required by law. The above report was generated using voice recognition software. It may contain grammatical, syntax or spelling errors. Electronically signed by: Narinder Royal M.D. 11/27/2023 12:38 PM Brain MRI 11/27/23 09:31 MR brain wo/w con HISTORY: 83 years-old Male change in mentation, new onset headache Headache with altered mental status. COMPARISON: MRA of the head of same day, CT head 11/26/2023. TECHNIQUE: Multiplanar and multisequence MRI of the brain was obtained both with and without the use of IV contrast. FINDINGS: No restricted diffusion. This study is motion degraded. Degenerative changes of the imaged cervical spine. No acute intracranial hemorrhage, midline shift, abnormal intra-axial collection, hydrocephalus or intra-axial mass is i dentified. The cerebral venous sinuses and major arterial flow voids appear patent. Skull, orbits and soft tissues are unremarkable. Prior bilateral lens repair. Mild polypoid mucosal thickening of the maxillary sinuses. Rightward bowing and spurring of the nasal septum. Trace right mastoid effusion. Involutional changes. Minimal T2/FLAIR hyperintense foci throughout the white matter, suggestive of probable chronic microvascular ischemic disease. No abnormal enhancement is identified. IMPRESSION: 1. Motion degraded exam without acute intracranial abnormality identified. 2. No acute or subacute infarct. 3. Involutional changes with suggestion of minimal chronic microvascular ischemic disease. 4. No abnormal enhancement. ACT 112: Negative or not required by law. The above report was generated using voice recognition software. It may contain grammatical, syntax or spelling errors. Dictated: 11/27/2023 12:22 PM Transcribed: 11/27/2023 12:38 PM Meño [id number] [email or web address] Electronically signed by: Narinder Royal M.D. 11/27/2023 1:05 PM Videofluoroscopic Swallow 11/27/23 13:33 MODIFIED BARIUM SWALLOW CLINICAL HISTORY: assess for aspiration COMPARISON STUDY: None. FLUOROSCOPY TIME: 2.01 minutes. Ka, r: 23.4 mGy. TECHNIQUE: A modified barium swallow was performed in conjunction with Speech Pathology. The patient ingested varying consistencies of barium containing material. Video fluoroscopy was performed. FINDINGS: Small amount of silent tracheal aspiration was noted with thin liquids via cup. There was penetration with nectar thick liquids without aspiration. No aspiration was identified with pudding consistency or crackers and pudding consistencies. Epiglottic inversion was normal. Laryngeal elevation was normal. Although suboptimally assessed on this exam, there is at least moderate esophageal dysmotility. IMPRESSION: 1. Small amount of silent tracheal aspiration with thin liquids by cup. No aspiration with remainder of the consistencies. 2. At least moderate esophageal dysmotility. 3. Full recommendations by Speech pathology to follow. ACT 112: Negative or not required by law. Electronically signed by: Kiet Fabian M.D. 11/27/2023 11:58 AM KUB X-Ray 11/28/23 13:57 XR KUB/Abdomen 1 view CLINICAL HISTORY: assess stool burden TECHNIQUE: 1 view of the abdomen was obtained. Comparison: Comparison is made to CT abdomen pelvis 10/20/2022 FINDINGS: Lung bases are unremarkable. The osseous structures are grossly unremarkable. The bowel gas pattern is nonobstructive. Small stool burden is seen. Retained contrast is noted in the transverse colon. IMPRESSION: Minimal stool burden. Retained contrast is incidentally seen. ACT 112: Negative or not required by law. Electronically signed by: Juan Mason M.D. 11/28/2023 3:[address] 11/28/23 17:40 CT head/brain wo con CLINICAL HISTORY: 83 years-old Male with ams. Acutely altered mental status TECHNIQUE: Multiple axial CT images of the head were obtained without contrast. A dose lowering technique was utilized adhering to the principles of ALARA. CT DOSE: 1250.21 mGy.cm COMPARISON: 11/26/2023 FINDINGS: No acute intracranial hemorrhage, midline shift, intracranial mass, hydrocephalus, territorial ischemia or abnormal extra-axial collection. Involutional changes with chronic microvascular ischemic disease and unchanged ventriculomegaly. Calcifications of the falx cerebri. Motion degraded exam. The calvarium is intact. Prior bilateral lens repair. Mild polypoid mucosal thickening of the maxillary sinuses. Rightward bowing and spurring of the nasal septum. IMPRESSION: Motion degraded exam without acute intracranial abnormality identified. ACT 112: Negative or not required by law. The above report was generated using voice recognition software. It may contain grammatical, syntax or spelling errors. Electronically signed by: Narinder Royal M.D. 11/28/2023 6:36 PM Chest X-Ray 11/29/23 07:24 XR chest 1V portable CLINICAL HISTORY: Hypoxia. COMPARISON STUDY: Chest radiograph November 26, 2023. FINDINGS: Lung volumes are normal. There is no pneumothorax or pleural effusion. A device within the left atrial appendage is incidentally noted. Cardiomegaly is unchanged. Mild interstitial thickening has developed. IMPRESSION: Stable cardiomegaly. Interval development of subtle interstitial thickening which favors mild pulmonary edema. ACT 112: Negative or not required by law. Electronically signed by: Kiet Fabian M.D. 11/29/2023 9:05 AM Abdomen/Pelvis CT 11/29/23 10:51 CT abd pelvis IV con only CLINICAL HISTORY: infectious work up/AMS TECHNIQUE: Helical axial images of the abdomen and pelvis were obtained and displayed. Automated dose lowering techniques and/or adjustment according to patient size were utilized for this exam. This exam was performed with intravenous contrast. CT DOSE: 2500.48 mGy.cm COMPARISON: Comparison is made to CT abdomen pelvis 10/20/2022 FINDINGS: Lower chest: No acute abnormality. Liver: Unremarkable. No focal lesions are seen. Gallbladder and biliary tree: Patient is status post cholecystectomy. Physiologic prominence of the biliary ducts is noted. Pancreas: Unremarkable, no focal lesions. Spleen: Unremarkable. Adrenals: Unremarkable. Kidneys and ureters: Multiple cysts are seen, some measure greater than simple fluid density. Of note, the previously noted right exophytic lesion is nonenhancing and compatible with proteinaceous/hemorrhagic cyst. Bladder: Unremarkable. Reproductive organs: Prostatic calcifications are seen which may represent prior hemorrhage or granulomatous disease. Bowel: Diverticulosis is seen without diverticulitis. The appendix is normal. Lymph nodes Retroperitoneal: Unremarkable. Pelvic: Unremarkable. Mesenteric: Unremarkable. Peritoneum: Normal. Vessels: Atherosclerotic calcifications are seen. Abdominal wall: Unremarkable. Bones: Degenerative changes in the visualized spine. IMPRESSION: 1. No acute abnormalities are seen. In particular the appendix is unremarkable. 2. Multiple cysts are seen, some of which measure greater than simple fluid density, these are unchanged from prior exam and compatible with proteinaceous/hemorrhagic cysts. ACT 112: Negative or not required by law. Electronically signed by: Juan Mason M.D. 11/29/2023 12:[address] 11/29/23 10:[address] WITH CONTRAST HISTORY: Acute sepsis infectious work up/AMS TECHNIQUE: Multiaxial CT images of the chest were performed following the IV administration of 94 cc of Optiray. A dose lowering technique was utilized adhering to the principles of ALARA. COMPARISON: CT abdomen and pelvis of same day and also 10/20/2022. FINDINGS: Unremarkable thyroid. There is no lymphadenopathy. Moderate cardiomegaly. Trace pericardial effusion. Left atrial exclusion device. Moderate coronary artery calcifications. Unremarkable thoracic aorta and pulmonary artery. Trace pleural effusions. No pneumothorax. Mild dependent subsegmental bibasilar atelectasis. No suspicious pulmonary nodules or masses identified. No lobar airspace consolidation typical for pneumonia. The central airways are patent. Indeterminate enhancing 1.3 cm lesion of the hepatic dome, possibly a flash filling hemangioma. No acute upper abdominal abnormality. There is no acute fracture. Degenerative changes of the shoulders and spine. No destructive bone lesions. IMPRESSION: 1. Cardiomegaly without pulmonary edema. 2. Trace pleural effusions with mild dependent bibasilar atelectasis. 3. No lymphadenopathy or airspace consolidation typical for pneumonia. ACT 112: Negative or not required by law. Electronically signed by: Narinder Royal M.D. 11/29/2023 1:34 PM Medications Administered Home Medications Medication Instructions Recorded Confirmed Last Taken pravastatin 40 mg tablet 40 mg PO HS 12/23/21 11/26/23 03/10/23 pyridostigmine bromide 60 mg 60 mg PO 4XD 12/23/21 11/26/23 03/10/23 tablet (Mestinon) acetaminophen 325 mg capsule 650 mg PO QID PRN Pain 01/21/22 11/26/23 10/31/22 10:00 (Tylenol) losartan 50 mg tablet 50 mg PO DAILY 10/20/22 11/26/23 03/10/23 amiodarone 200 mg tablet 200 mg PO DAILY 05/28/23 11/26/23 05/28/23 08:00 amlodipine 5 mg tablet 5 mg PO DAILY 11/26/23 11/26/23 Unknown aspirin 81 mg chewable tablet 81 mg PO DAILY 11/26/23 11/26/23 Unknown clopidogrel 75 mg tablet 75 mg PO DAILY 11/26/23 11/26/23 Unknown cyanocobalamin (vitamin B-12) 500 500 mcg PO QAM 11/26/23 11/26/23 Unknown mcg tablet (Vitamin B-12) ergocalciferol (vitamin D2) 10 mcg 10 mcg PO DAILY 11/26/23 11/26/23 Unknown (400 unit) tablet potassium 1 tab PO DAILY 11/26/23 11/26/23 Unknown pyridostigmine bromide 180 mg 180 mg PO HS 11/26/23 11/26/23 Unknown tablet,extended release Active Medications Generic Name Dose Route Start Last Admin Trade Name Freq PRN Reason Stop Dose Admin Amiodarone HCl 200 mg 11/27/23 09:00 11/29/23 09:54 Amiodarone 200 Mg Tab PO 12/27/23 08:59 Not Given DAILY NAREN Aspirin 81 mg 11/27/23 09:00 11/28/23 11:18 Aspirin 81 Mg Chew PO 12/27/23 08:59 Not Given DAILY NAREN Colestipol HCl 1 gm 11/26/23 22:00 11/29/23 09:55 Colestipol Hcl 1 Gm Tab PO 12/26/23 21:59 Not Given BID@1000,2200 NAREN Cyanocobalamin 500 mcg 11/27/23 09:00 11/29/23 09:54 Cyanocobalamin (B-12) 500 Mcg Tablet PO 12/27/23 08:59 Not Given QAM NAREN Pantoprazole Sodium 40 mg/ 10 mls @ 5 mls/min 11/28/23 21:00 11/29/23 08:59 Syringe IV 12/28/23 20:59 5 mls/min BID NAREN Administration Piperacillin Sod/Tazobactam 100 mls @ 25 mls/hr 11/28/23 23:00 11/29/23 10:27 Sod 4.5 gm/ Dextrose IV 11/30/23 22:59 Infused Q8H NAREN Infusion Protocol Potassium Citrate 10 meq 11/27/23 09:00 11/29/23 09:54 Potassium Citrate 10 Meq Tab PO 12/27/23 08:59 Not Given QAM NAREN Pravastatin Sodium 40 mg 11/26/23 21:00 11/28/23 20:34 Pravastatin Sod 40 Mg Tab PO 12/26/23 20:59 40 mg HS NAREN Administration Prednisone 30 mg 11/29/23 09:00 11/29/23 09:55 Prednisone 10 Mg Tablet PO 12/29/23 08:59 Not Given DAILY NAREN Pyridostigmine [place] 60 mg 11/26/23 08:55 11/29/23 09:55 Pyridostigmine [place] 60 Mg Tab PO 12/26/23 08:54 Not Given QID [facility] Pyridostigmine [place] 180 mg 11/27/23 22:00 11/28/23 21:26 Pyridostigmine Sustained Rel 180 Mg Tabcr PO 12/27/23 20:59 180 mg DAILY@2200 [facility] Administration Vitamin D 400 units 11/27/23 09:00 11/29/23 09:54 Cholecalciferol 400 Units 10 Mcg Tab PO 12/27/23 08:59 Not Given DAILY NAREN
--- NOTE | 2023-11-29 13:37 | CT Scan Report ---
CHEST CT WITH CONTRAST HISTORY: Acute sepsis infectious work up/AMS TECHNIQUE: Multiaxial CT images of the chest were performed following the IV administration of 94 cc of Optiray. A dose lowering technique was utilized adhering to the principles of ALARA. COMPARISON: CT abdomen and pelvis of same day and also 10/20/2022. FINDINGS: Unremarkable thyroid. There is no lymphadenopathy. Moderate cardiomegaly. Trace pericardial effusion. Left atrial exclusion device. Moderate coronary artery calcifications. Unremarkable thorac ic aorta and pulmonary artery. Trace pleural effusions. No pneumothorax. Mild dependent subsegmental bibasilar atelectasis. No suspi cious pulmonary nodules or masses identified. No lobar airspace consolidation typical for pneumonia. The central airways are patent. Indeterminate enhancing 1.3 cm lesion of the hepatic dome, possibly a flash filling hemangioma. No ac [place] upper abdominal abnormality. There is no acute fracture. Degenerative changes of the shoulders an d spine. No destructive bone lesions. IMPRESSION: 1. Cardiomegaly without pulmonary edema. 2. Trace pleural effusions with mild dependent bibasilar atelectasis. 3. No lymphadenopathy or airspace consolidation typical for pneumonia. ACT 112: Negative or not required by law. Electronically signed by: Narinder Royal M.D. 11/29/2023 1:34 PM
[2023-11-29] MEDS ORDERED: VANCOMYCIN HCL 1,750 MG in SODIUM CHLORIDE 0.9% 500 ML IV ONE (15:31)
[2023-11-29] MEDS ORDERED: VANCOMYCIN CONSULT ACTIVE PRN (15:31)
[2023-11-29 15:42] VITALS: PULSE 52
[2023-11-29] MEDS ORDERED: AMPICILLIN SOD 1 GM VIAL IV SCH (15:45)
[2023-11-29] MEDS ORDERED: AMPICILLIN 2,000 MG in SODIUM CHLOR 0.9% MINI-B 100 ML IV SCH (16:00)
[2023-11-29] MEDS ORDERED: VANCOMYCIN HCL 2,250 MG in SODIUM CHLORIDE 0.9% 500 ML IV ONE (16:00)
[2023-11-29 16:10] VITALS: BP 105/62; RESP 18; TEMP 98.8
[2023-11-29] MEDS ORDERED: cefTRIAXone SODIUM 2,000 MG in DEXTROSE 5 % MINI-B 50 ML IV SCH (16:30)
[2023-11-29] MEDS ORDERED: ACYCLOVIR SOD IV SCH (16:30)
[2023-11-29] MEDS ORDERED: DEXTROSE 5% IV SCH (16:30)
--- NOTE | 2023-11-29 16:53 | Discharge Summary ---
Discharge Summary Date of Service November 29, 2023 Notes For Next Care Provider Medication Changes From Visit Transferred to [facility] Vancomycin per pharm, pending Acyclovir 880mg q8h Ampcillin 2g q4h CTX 2g q12h Admission HPI Per Admitting Provider Mr. Huizar is an 83 year old gentleman with history of paroxysmal atrial fibrillation now s/p Watchman 09/28, myasthenia gravis, hypertension, HLD, DMTII, progressive dysphagia who is presenting to [facility] ED due to worsening headaches, dysphagia, and episode of confusion. Patient states that over the last few months, he has been experiencing worsening weakness and dysphagia--marked by aspiration with most meals, pills, as well as vomiting phlegm He states that he has persistent diplopia and vision hasn't worsened, but over last two weeks he has experienced new headaches. This headaches are predominately on the right occiput area and radiate down neck--they wont really resolve on their own. He states the headache he experienced yesterday, 11/25 was accompanied by confusion/disorientation. He states that he was sitting in his recliner, when he suddenly screamed for help, thinking he was in a car. Episode like this had never occurred prior. Patient denies fevers, chills, chest pain. Patient endorses ambulatory dysfunction marked by worsening balance/weakness, as well as dysphagia and secretion production. In the ED, vitals were notable for BP of 108-120s, HR of 40-50s and O2 sat of high 90s on room air. Imaging revealed signs of cardiomegaly, but no signs of pneumonia/pneumonitis, CT scan with volume loss, but no acute changes EKG with RBBB, bradycardia Labs with SHWETA and hypoglycemia ED interventions: s/p dexamethsone for headache Consultants: Neuro/cards Patient to be admitted to med/tele for optimization of MG and cardiac status, as well as eval of dysphagia with swallow study Admission Exam Per Admitting Provider : GENERAL APPEARANCE: AxOx4, weak, appearing gentleman HEENT: NC, AT. MMM ptosis noted bilaterally, difficult to asses EOMI , clear conjunctiva, oropharynx clear. NECK: Supple without lymphadenopathy. No stiffness or restricted ROM. HEART: bradycardic and regular rhythm, normal S1/S1, no m/r/g LUNGS: diminished breath sounds, 2/2 effort ABDOMEN: Soft, nontender, nondistended with good bowel sounds heard. BACK: No CVAT, no obvious deformity. EXTREMITIES: Without cyanosis, clubbing or edema. NEUROLOGICAL: strength 4/5 in LLE, 3/5 upper proximal muscles, ptosis, grossly nonfocal dysarthria Skin: Warm and dry without any rash. small wound on LLE, poorly kept toenails, no signs of infection/wounds Principal Dx & Hospital Course #1 = Principal Diagnosis (1) Dysphagia causing pulmonary aspiration with swallowing: (2) New onset headache: (3) Myasthenia gravis: (4) Symptomatic bradycardia: (5) Atrial fibrillation: (6) DM II (diabetes mellitus, type II), controlled: (7) Obstructive uropathy: Plan Mr. Huizar is an 83 year old gentleman with history of paroxysmal atrial fibrillation now s/p Watchman 09/28, myasthenia gravis, hypertension, HLD, DMTII, progressive dysphagia who is presenting to [facility] ED due to worsening headaches, dysphagia, and episode of confusion and admitted on 11/26 for evaluation of such. Patient with complex medical history and notable overlap of symptoms. Cardiology to assess for candidacy of pacemaker given issues with bradycardia, as well as complications with recurrent a fib rvr. Neurology to assess for any optimization or concerns regarding MG Speech on consult: video swallow completed 11/27 notable for esophageal dysfunction and reflux At baseline on 11/26, patient is A04 and aware of medical conditions, though with some dysarthria, still interactive/mobile. From 11/27 onward, patient's delirium has progressed quite notably. He is making minimal vocalization, progressive insufficient swallowing, and no meaningful interaction with examination. ID consulted, plan for meningitis treatment until LP can be obtained. Neurology: given progressive decline and limited imaging, will transfer patient to [facility]. [facility] [place], but no [facility] availability. Respiratory status remains stable, however, contingency plan for transfer to [facility] 08/11 if respiratory status declines, then notification to ICU. 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 received 10mg decacron in ED 11/26 -R/o infectious etiology contributing to profound ams -Delirium precautions: attempting reorientation -Discussed with neuro, continue steroids at this time -Unable to take by mouth, will hold 11/29 -Repeat infectious work up -Biofire 11/26 negative, repeat 11/29 negative -Continue zosyn -CT ABD/P r/o insidious infection -MRSA nares negative, hold Vanc -Repeat UA clean 11/29 -Will add lyme/tick panel given neck/occipital pain reported -Plan for ID consult this am, reviewed recommendations -Discontinue Zosyn, does not cross BBB -Start CTX 2g q24, ampcillin 2g q4, acyclovir 10mg/kg q8, vanc per pharm -Imaging: CT trace pulm edema, effusions: s/p IV lasix 11/29, no fluid collections, signs of infection - -KUB to assess for constipation contributing -minor stool burden -CXR given intermittent O2 requirement -Plan to coordinate LP; however, unable to obtain giving plavix last received 11/27 -Holding plavix, patient unable to manage PO at this time regardless -Continue to discuss if unable to transfer in timely manner -B12 >1500, Crp <0.5, ESR 51 #Abnormal UA UA did not reflex -Repeat infectious workup given profound delirium -UA negative 11/29 #Mild/moderate oropharyngeal dysphagia #Esophageal dysfunction #Progressive dysphagia, +silent aspiration #Increased secretions -Patient evaluated by HEMANTH Walton 10/05/2023, plans for EGD -Speech evaluated patient -VFSS notable for silent aspiration -Easy to chew diet, no straws, aspiration precautions -Consult GI -No interventions at this time -To tolerate feeding tube: -resolve delirium, determine goals with family, dobhoff with feeds to assess tolerance -Will readdress when delirium resolved -Protonix BID IV in interim -Discussed airway protection with ICU: plan for transition to Bipap 08/11 if airway compromise, however, will need close monitoring as patient cannot protect airway #Right Occipital Headache, x2 weeks #Episode of confusion, altered mental status #Myasthenia Gravis -Follow neurology, Dr. Saturnino Mckinley -Called and spoke with Dr Mckinley, continue course as set for now -09/06/2023, Was considering Azathioprine but 2/2 labs draws declined; prompting increase Mestinon 60mg QID and Mestinon TS 180mg qhs -New headache with right occipital distributing, sharp down neck -Episode of delirium almost, with screaming in chair for help feeling as if he was "in the car" -s/p 10mg DEX IV in ED -Continue mestinon 60mg QID,held 2/2 NPO -Continue Mestinon TS 180mg qhs,held 2/2 NPO -Neurology consult, appreciate recommendations -Started on 60mg prednisone taper (60 x 1 week then down titrate slow) --12/03 decrease planned contingent on course -Reduced to 30mg 11/29 given profound delirium in case steroids contributing, suspect likely as this current state present on day 2 of admission, however, delusional event prompted presentation therefore prudent to r/o infectious etiology -Unable to take dose on 11/29 -MRI/MRA unremarkable -Temporal artery US unable to obtain at [facility] -NIF testing unable to obtain at [facility] -Lyme serology ordered -EEG +encephalopathy #Recurrent mechanical falls #Ambulatory dysfunction #Prior subdural hematoma -traumatic fall 12/2021 with hematoma noted -PT/OT -Fall precautions #Hypothyroidism -TSH 12.54, free T4 0.85, on amiodarone CTM, historically untreated 2/2 ongoing MG Repeat per Neurology: TSH 9 #Paroxysmal Atrial Fibrillation s/p watchman #Chronic RBBB #Symptomatic bradycardia [id number], HASBLED 2 01/2022, newly diagnosed A Fib RVR, discharged with amiodarone; discontinued 11/2022, however reverted back to a fib and placed on amio/metoprolol/dilt s/p cardioversion Followed with Dr Mcneil 05/2023 during admission, during that time amiodarone continued, metoprolol Watchman placed 09/2023 -On amiodarone 200mg daily -Placed on DAPT post watchman to continue for reportedly 6 months, then asa 81 indefinitely -Continue ASA and plavix, held 2/2 NPO -Cardiology consult -Continue amiodarone ,held 2/2 NPO -No device at this time -Monitor on Telemetry #Hypoglycemia #DMTII -BG 67 on admission D5LR while NPO, d/c now that speech cleared for PO Hypogylcemia protocol A1C 6.0 #HTN Takes amlodipine and losartan -Holding both 2/2 hypotension on arrival and poor po intake #Carotid stenosis s/p CEA #HLD Continue pravastatin,held 2/2 NPO #Chronic diarrhea Continue home colestipol ,held 2/2 NPO #Urinary urgency #Recurrent nephrolithiasis #Renal Cysts -Failed Gemtesa, trospium, myrbetriq, follows Dr. Broussard; OP recommendation include limit salt, prioritize hydration -Continue potassium citrate 10meq daily,held 2/2 NPO DVT ppx: heparin/SCDs Admit to med/tele Neuro/Cards on consult PT/OT Transfer planning Updated Medication List Medication Instructions Recorded Confirmed Type pravastatin 40 mg tablet 40 mg PO HS 12/23/21 11/26/23 History pyridostigmine bromide 60 mg 60 mg PO 4XD 12/23/21 11/26/23 History tablet (Mestinon) acetaminophen 325 mg capsule 650 mg PO QID PRN Pain 01/21/22 11/26/23 History (Tylenol) losartan 50 mg tablet 50 mg PO DAILY 10/20/22 11/26/23 History amiodarone 200 mg tablet 200 mg PO DAILY 05/28/23 11/26/23 History amlodipine 5 mg tablet 5 mg PO DAILY 11/26/23 11/26/23 History aspirin 81 mg chewable tablet 81 mg PO DAILY 11/26/23 11/26/23 History clopidogrel 75 mg tablet 75 mg PO DAILY 11/26/23 11/26/23 History cyanocobalamin (vitamin B-12) 500 500 mcg PO QAM 11/26/23 11/26/23 History mcg tablet (Vitamin B-12) ergocalciferol (vitamin D2) 10 mcg 10 mcg PO DAILY 11/26/23 11/26/23 History (400 unit) tablet potassium 1 tab PO DAILY 11/26/23 11/26/23 History pyridostigmine bromide 180 mg 180 mg PO HS 11/26/23 11/26/23 History tablet,extended release Hospital Stay Data Consultations 11/26/23 07:38 ED Decision to Admit Stat 11/26/23 08:05 Consult Cardiology Routine 11/26/23 08:06 Consult Neurology Routine 11/27/23 14:21 Consult Gastroenterology Routine 11/29/23 07:26 Consult Infectious Diseases Routine Procedures Performed Operation Date: 11/28/23 17:45 <No data on this case meets the specified criteria> Diagnostic Imagining Performed 11/26/23 02:42 CT head/brain wo con Stat 11/27/23 07:42 MR angio head wo con Routine 11/27/23 09:31 MRI Brain [MR brain wo/w con] Routine 11/27/23 13:33 FL video swallow Routine 11/28/23 17:40 CT head/brain wo con Routine 11/29/23 10:51 CT Abd and Pelvis [CT abd pelvis IV con only] Routine CT chest diagnostic w con Routine Pending Results Patient Have Any Pending Studies at Discharge: No Discharge Instructions Given to Patient (Per Discharging Provider) Mr. Huizar is an 83 year old gentleman with history of paroxysmal atrial fibrillation now s/p Watchman 09/28, myasthenia gravis, hypertension, HLD, DMTII, progressive dysphagia who is presenting to [facility] ED due to worsening headaches, dysphagia, and episode of confusion and admitted on 11/26 for evaluation of such. Patient with complex medical history and notable overlap of symptoms. Cardiology to assess for candidacy of pacemaker given issues with bradycardia, as well as complications with recurrent a fib rvr. Neurology to assess for any optimization or concerns regarding MG Speech on consult: video swallow completed 11/27 notable for esophageal dysfunction and reflux At baseline on 11/26, patient is A04 and aware of medical conditions, though with some dysarthria, still interactive/mobile. From 11/27 onward, patient's delirium has progressed quite notably. He is making minimal vocalization, progressive insufficient swallowing, and no meaningful interaction with examination. ID consulted, plan for meningitis treatment until LP can be obtained. Neurology: given progressive decline and limited imaging, will transfer patient to [facility]. [facility] [place], but no [facility] availability. Respiratory status remains stable, however, contingency plan for transfer to [facility] 08/11 if respiratory status declines, then notification to ICU. 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 received 10mg decacron in ED 11/26 -R/o infectious etiology contributing to profound ams -Delirium precautions: attempting reorientation -Discussed with neuro, continue steroids at this time -Unable to take by mouth, will hold 11/29 -Repeat infectious work up -Biofire 11/26 negative, repeat 11/29 negative -MRSA nares negative, hold Vanc -Repeat UA clean 11/29 -Will add lyme/tick panel given neck/occipital pain reported -Plan for ID consult this am, reviewed recommendations -Discontinue Zosyn, does not cross BBB -Start CTX 2g q12, ampcillin 2g q4, acyclovir 10mg/kg q8, vanc per pharm -Imaging: CT trace pulm edema, effusions: s/p IV lasix 11/29, no fluid collections, signs of infection- -KUB to assess for constipation contributing -minor stool burden -CXR given intermittent O2 requirement: pulm edema -Plan to coordinate LP; however, unable to obtain giving plavix last received 11/27 -Holding plavix, patient unable to manage PO at this time regardless -Continue to discuss if unable to transfer in timely manner -B12 >1500, Crp <0.5, ESR 51 #Abnormal UA UA did not reflex -Repeat infectious workup given profound delirium -UA negative 11/29 #Mild/moderate oropharyngeal dysphagia #Esophageal dysfunction #Progressive dysphagia, +silent aspiration #Increased secretions -Patient evaluated by HEMANTH Walton 10/05/2023, plans for EGD -Speech evaluated patient -VFSS notable for silent aspiration -Easy to chew diet, no straws, aspiration precautions -Consult GI -No interventions at this time -To tolerate feeding tube: -resolve delirium, determine goals with family, dobhoff with feeds to assess tolerance -Will readdress when delirium resolved -Protonix BID IV in interim -Discussed airway protection with ICU: plan for transition to [facility]ip[facility] 08/11 if airway compromise, however, will need close monitoring as patient cannot protect airway #Right Occipital Headache, x2 weeks #Episode of confusion, altered mental status #Myasthenia Gravis -Follow neurology, Dr. Saturnino Mckinley -Called and spoke with Dr Mckinley, continue course as set for now -09/06/2023, Was considering Azathioprine but 2/2 labs draws declined; prompting increase Mestinon 60mg QID and Mestinon TS 180mg qhs -New headache with right occipital distributing, sharp down neck -Episode of delirium almost, with screaming in chair for help feeling as if he was "in the car" -s/p 10mg DEX IV in ED -Continue mestinon 60mg QID,held 2/2 NPO -Continue Mestinon TS 180mg qhs,held 2/2 NPO -Neurology consult, appreciate recommendations -Started on 60mg prednisone taper (60 x 1 week then down titrate slow) --12/03 decrease planned contingent on course -Reduced to 30mg 11/29 given profound delirium in case steroids contributing, suspect likely as this current state present on day 2 of admission, however, delusional event prompted presentation therefore prudent to r/o infectious etiology -Unable to take dose on 11/29 -MRI/MRA unremarkable, CT noncon 11/28 unremarkable -Temporal artery US unable to obtain at [facility] -NIF testing unable to obtain at [facility] -Lyme serology ordered -EEG +encephalopathy #Recurrent mechanical falls #Ambulatory dysfunction #Prior subdural hematoma -traumatic fall 12/2021 with hematoma noted -PT/OT -Fall precautions #Hypothyroidism -TSH 12.54, free T4 0.85, on amiodarone CTM, historically untreated 2/2 ongoing MG Repeat per Neurology: TSH 9 #Paroxysmal Atrial Fibrillation s/p watchman #Chronic RBBB #Symptomatic bradycardia [id number] 3, HASBLED 2 01/2022, newly diagnosed A Fib RVR, discharged with amiodarone; discontinued 11/2022, however reverted back to a fib and placed on amio/metoprolol/dilt s/p cardioversion Followed with Dr Mcneil 05/2023 during admission, during that time amiodarone continued, metoprolol Watchman placed 09/2023 -On amiodarone 200mg daily -Placed on DAPT post watchman to continue for reportedly 6 months, then asa 81 indefinitely -Continue ASA and plavix, held 2/2 NPO -Cardiology consult -Continue amiodarone ,held 2/2 NPO -No device at this time -Monitor on Telemetry #Hypoglycemia #DMTII -BG 67 on admission D5LR while NPO, d/c now that speech cleared for PO Hypogylcemia protocol A1C 6.0 #HTN Takes amlodipine and losartan -Holding both 2/2 hypotension on arrival and poor po intake #Carotid stenosis s/p CEA #HLD Continue pravastatin,held 2/2 NPO #Chronic diarrhea Continue home colestipol ,held 2/2 NPO #Urinary urgency #Recurrent nephrolithiasis #Renal Cysts -Failed Gemtesa, trospium, myrbetriq, follows Dr. Broussard; OP recommendation include limit salt, prioritize hydration -Continue potassium citrate 10meq daily,held 2/2 NPO Total Time Total Time Spent Total Time Spent (In Minutes): 75
[2023-11-29 18:13] VITALS: O2SAT 92
[2023-11-30] MEDS ORDERED: VANCOMYCIN HCL 1,500 MG in SODIUM CHLORIDE 0.9% 500 ML IV SCH (09:00)
[2023-12-01] MEDS ORDERED: VANCOMYCIN LEVEL ONE (08:00)
[2023-12-02 15:08] LABS: Ehrlichia chaff DNA Bld Negative (Negative)
== END 2023-11-29 19:15 | disposition short-term general hospital (02) | DRG 392 ==
LOC: ED 01:34 → EDINP 08:59 → 2W 11:44

== ENCOUNTER 2023-12-29 12:30 | Inpatient (IN) ==
[2023-12-29] MEDS ORDERED: PROMETHAZINE HCL 6.25 MG in SODIUM CHLORIDE 0.9% 50 ML IV PRN (19:49)
--- NOTE | 2023-12-29 20:01 | History & Physical Report ---
Date of Service December 29, 2023 Assessment & Plan (1) Encephalopathy: (2) Dysphagia: (3) C. difficile diarrhea: (4) Ambulatory dysfunction: (5) History of myasthenia gravis: (6) Sinus bradycardia: (7) Myasthenia gravis: (8) Atrial fibrillation: (9) DM II (diabetes mellitus, type II), controlled: (10) MDD (major depressive disorder): (11) HTN (hypertension): (12) HLD (hyperlipidemia): Plan: HPI, ROS, PE, medication reconciliation done by Dorcas Greene PA-C. Assessment and plan per Dr Rahman. See addendum. Admission and Anticipated Discharge Date Admission Date: December 29, 2023 History of Present Illness Chief Complaint: Altered mental status Primary Care Provider: Juan August MD Patient is 83-year-old male with PMH HTN, HLD, atrial fibrillation not on anticoagulation due to history SAH, s/p watchman 09/2023, DM II, myasthenia gravis, depression, progressive dysphagia. History obtained from inpatient and outpatient chart review. Patient admitted [facility] 11/26/2023-11/29/2023 for dysphagia, altered mental status. During admission patient with progressive encephalopathy, delirium and progressive issues with dysphagia. Had workup for meningitis encephalitis, MRI without acute findings except for generalized cerebral atrophy, EEG consistent with encephalopathy without evidence of epileptiform. Had fevers without any clear source of infection. Secondary to decline patient was transferred to [facility] for further workup and imaging. Admission notes from [facility] reviewed. Initially admitted to neurology service. Had prolonged hospitalization with continue encephalopathy and delirium. Was transferred to medicine service on 12/04/23 for further workup of metabolic etiology. Had thorough workup for metabolic, infectious, inflammatory, seizure, stroke etiologies without significant clear etiology There was no recommendation for PEG tube placement due to likelihood of dislodgment. His NG tube has been removed. Had palliative consult Patient diagnosed with C. difficile on 12/13/2023 and initially started on oral vancomycin which was then switched to IV Flagyl for 2 days. Diarrhea had worsened with IV Flagyl and was switched back to oral vancomycin to complete 14- day course. Course to be completed on 12/29/23. He was noted to have TSH > 10 and was started on levothyroxine 50 mcg daily During hospitalization had asymptomatic sinus bradycardia. Amiodarone was held Had noted left great toenail discoloration with PORSHA without concerns for PAD CT abdomen pelvis showed multiple small bilateral renal cysts and was recommended to have further outpatient follow-up Olanzapine at bedtime per palliative Vitamin D suggested Losartan Dcd Reported during hospital course patient became more awake and alert and had started to interact with family. It was suggested to continue on pyridostigmine 30mg TID per neurology with plan to hold his prior to arrival dose of 180mg daily until further PCP follow up Patient diet was pureed and mildly thick liquids Patient transferred from [facility] back to [facility] on 12/29/23 per patient and family request as closer to patient's home and family Patient seen and examined in room 321. Currently awake is oriented to person only. Does have mumbled speech. Is able to follow basic commands. Further history and ROS is not able to be obtained from patient at this time. Allergies Allergy/AdvReac Type Severity Reaction Status Date / Time felodipine Allergy Intermediate hives Verified 06/28/23 14:36 flunisolide Allergy Unknown other Verified 06/28/23 14:36 gabapentin AdvReac Intermediate GI SYMPTOMS Verified 06/28/23 14:36 Thiazides AdvReac Intermediate CAUSED GOUT Verified 06/28/23 14:36 Home Medications Medication Instructions Recorded Confirmed Type pravastatin 40 mg tablet 40 mg PO QPM 12/23/21 12/29/23 History pyridostigmine bromide 60 mg 30 mg PO TID 12/23/21 12/29/23 History tablet (Mestinon) acetaminophen 325 mg capsule 650 mg PO QID PRN Fever Or Pain 01/21/22 12/29/23 History (Tylenol) amlodipine 5 mg tablet 5 mg PO AMHS 11/26/23 12/29/23 History clopidogrel 75 mg tablet 75 mg PO QAM 11/26/23 12/29/23 History pyridostigmine bromide 180 mg 180 mg PO QAM 11/26/23 12/29/23 History tablet,extended release Vitamin D3 1,000 units PO DAILY 12/29/23 12/29/23 History aspirin 81 mg chewable tablet 81 mg PO QAM 12/29/23 12/29/23 History cyanocobalamin (vitamin B-12) 1,000 mcg PO QAM 12/29/23 12/29/23 History 1,000 mcg tablet (Vitamin B-12) Past Med/Surg History Medical History Carotid stenosis s/p carotid endarterectomy, side unknown Left ureteral stone Kidney lesion Atrial fibrillation [facility] [place] [facility]ST [facility]IT 07/2022 MDD (major depressive disorder) DM II (diabetes mellitus, type II), controlled diet controlled, no longer on meds HLD (hyperlipidemia) HTN (hypertension) History of subarachnoid hemorrhage 12/2021 Myasthenia gravis IBS (irritable bowel syndrome) Surgical History History of carotid endarterectomy done about 5 yrs ago, [facility] [place] Hx of cystoscopy w/ stent 10/20/22 MAC. Post-op anesthesia progress note: "slightly hypotensive but is close to his preoperative baseline and has been receiving Vancomycin through his IV. His other vital signs are stable." History of vasectomy S/P cholecystectomy Family History Father Stroke Social History Smoking Status: Never smoker Tobacco Type: Cigarettes Second Hand Exposure: No; Do You Dip or Chew Tobacco: No; Hx Alcohol Use: No Hx Substance Use: No Preferred Language: Estonian Communication Ability: Effective Visual Impairment: No Limitations Proof Clerk Required: No Beliefs That Will Affect Care: None marital status: Current Living Situation: Spouse current occupational status: retired Feels Safe at Home: Yes caffeine: Yes Assistive Devices: Cane and Glasses Review of Systems Review of Systems: Unobtainable due to cognitive status Physical Exam Physical Exam: General: no acute distress, WDWN Head: normocephalic, atraumatic Eyes: conjunctiva non-injected, anicteric ENT: normal inspection external ears, nose, mucous membranes moist Neck: supple, trachea midline Lungs: clear, no respiratory distress, no wheezing/rhonchi/rales CV: irregularly irregular, rate 58, no pretibial edema Abd: normal BS, soft, non-tender to palpation Ext: no cyanosis, no calf tenderness Neuro: Awake and alert to person only. Currently calm lying in bed. +mumbled speech. Able to follow simple commands and can move bilateral upper and lower extremities Skin: warm, dry, left great toe with black discoloration without surrounding erythema Results & Data Results & Data Vital Signs (Past 12 Hours) Vital Signs Temp Pulse Resp BP Pulse Ox O2 Del Method 12/29/23 19:55 36.3 C L 59 L 16 118/66 96 Room Air Supervising Physician Co-Signing Physician Notes IM ATTENDING : Patient seen and examined. History obtained from patient, family, and records. Limited history from patient secondary to chronic dysarthria. Concur with salient points upon review of preceding documentation by Ms. Dorcas Greene PA-C. I take responsibility for plan of care below. In addition, serum creatinine noted to be 1.7 from normal baseline on last blood draw at [facility] 3 days ago. FINAL ASSESSMENT AND PLAN as follows : ARF PAF status post Watchman device, patient prior home Rx of amiodarone 200 mg daily discontinued at [facility] due to bradycardia PVD status post surgery hypertension, BP stable, losartan discontinued at [facility] Hyperlipidemia on statin Rx, History traumatic subarachnoid hemorrhage as per records DM2 diet-controlled, well-controlled as of recent hemoglobin A1c of 6 this month Hypothyroidism, TSH drawn at [facility] this month slight elevated at 6 Chronic anemia, hemoglobin at baseline Esophageal dysfunction, General surgery recommended against PEG tube placement due to patient mentation and high risk of dislodgment as per [facility] notes. History of C. difficile status post vancomycin Rx, diarrhea symptoms resolved as per patient. PUD as per records Mood disorder, at baseline Myasthenia gravis, stable on current Mestinon regimen Functional disability/deconditioning GMF Baseline UA Monitor creatinine response to IVF Resume Amiodarone at lower dose (100 mg daily) to for A-fib rhythm control ISS BG goal 1 10-1 40, carb count coverage Recheck TSH next month outpatient PT OT eval DVT prophylaxis. Heparin subcu Full code Patient requesting updates providers. Jacquelin Bhupendra, contact #[phone]. Text document was generated using [employer] voice recognition software. It may contain grammatical or spelling errors. Kindly contact undersigned for clarification of any documentation item in question.
[2023-12-29] MEDS ORDERED: GLUCOSE 40% GEL 15 GM TUBE PO PRN (20:16)
[2023-12-29] MEDS ORDERED: GLUCAGON FOR INJ 1 MG VIAL SQ PRN (20:16)
[2023-12-29] MEDS ORDERED: GLUCOSE 10 TAB/TUBE PO PRN (20:16)
[2023-12-29] MEDS ORDERED: DEXTROSE 50% 50 ML SYRINGE IV PRN (20:16)
[2023-12-29] MEDS ORDERED: OLANZapine 10 MG/2.1 ML SDV IM PRN (20:23)
[2023-12-29 21:30] LABS: Anion Gap 9 (3-11); BUN Creatinine Ratio 12.4 (10-20); Basophils # (auto) 0.03 K/uL (0.00-0.20); Basophils % (auto) 0.5 %; Blood Urea Nitrogen 20 mg/dl (6-23); Calcium 9.5 mg/dl (8.6-10.3); Carbon Dioxide 24 mmol/L (21-32); Chloride 106 mmol/L (98-107); Eosinophils # (auto) 0.09 K/uL (0.00-0.50); Eosinophils % (auto) 1.4 %; Est GFR (African American) 45.8 ml/min; Est GFR (Non-African American) 39.5 ml/min; Glucose 88 mg/dl (70-99(Fasting)); Hematocrit (blood only) 43.3 % (42.0-52.0); Hemoglobin 13.6 g/dl (14.0-18.0); Immature Granulocytes # (auto) 0.04 K/uL (0.01-0.20); Immature Granulocytes % (auto) 0.6 %; Lymphocytes # (auto) 1.47 K/uL (1.20-3.40); Lymphocytes % (auto) 22.6 %; Mean Corpuscular Hemoglobin 28.8 pg (25.0-34.0); Mean Corpuscular Hgb Conc 31.4 g/dL (32.0-36.0); Mean Corpuscular Volume 91.5 fL (80.0-100.0); Mean Platelet Volume 10.7 fL (9.4-12.4); Monocytes # (auto) 0.76 K/uL (0.11-0.59); Monocytes % (auto) 11.7 %; Neutrophils # (auto) 4.12 K/uL (1.40-6.50); Neutrophils % (auto) 63.2 %; Platelet Count 246 K/uL (130-400); Potassium 4.4 mmol/L (3.5-5.1); RDW Coefficient of Variation 15.9 % (11.5-14.5); RDW Standard Deviation 52.3 fL (36.4-46.3); Red Blood Count 4.73 M/uL (4.70-6.10); Sodium 139 mmol/L (136-145); White Blood Count 6.51 K/ul (4.8-10.8)
[2023-12-29] MEDS: INSULIN ASPART PER UNIT CHARGE SC SCH (22:10)
[2023-12-29 23:26] LABS: Creatine Kinase 29 U/L (30-223)
[2023-12-29] MEDS: pyRIDostigmine bromide 60 MG TAB PO SCH (23:35)
[2023-12-29] MEDS: OLANZapine ZYDIS 5 MG ORALLY DIS. TAB PO SCH (23:35)
[2023-12-29] MEDS: SODIUM CHLORIDE 0.9% 1,000 ML IV ONE (23:54)
[2023-12-30] MEDS: HEPARIN SOD 5,000 UNIT/0.5 ML VIAL SQ SCH (05:33)
[2023-12-30 07:49] LABS: Basophils # (auto) 0.03 K/uL (0.00-0.20); Basophils % (auto) 0.5 %; Eosinophils # (auto) 0.09 K/uL (0.00-0.50); Eosinophils % (auto) 1.5 %; Hematocrit (blood only) 38.9 % (42.0-52.0); Hemoglobin 12.4 g/dl (14.0-18.0); Immature Granulocytes # (auto) 0.02 K/uL (0.01-0.20); Immature Granulocytes % (auto) 0.3 %; Lymphocytes # (auto) 1.33 K/uL (1.20-3.40); Lymphocytes % (auto) 21.8 %; Mean Corpuscular Hemoglobin 28.8 pg (25.0-34.0); Mean Corpuscular Hgb Conc 31.9 g/dL (32.0-36.0); Mean Corpuscular Volume 90.3 fL (80.0-100.0); Mean Platelet Volume 10.9 fL (9.4-12.4); Monocytes # (auto) 0.82 K/uL (0.11-0.59); Monocytes % (auto) 13.4 %; Neutrophils # (auto) 3.81 K/uL (1.40-6.50); Neutrophils % (auto) 62.5 %; Platelet Count 241 K/uL (130-400); RDW Standard Deviation 52.3 fL (36.4-46.3); Red Blood Count 4.31 M/uL (4.70-6.10)
[2023-12-30] MEDS: CYANOCOBALAMIN (B-12) 500 MCG TABLET PO SCH (08:16)
[2023-12-30] MEDS: amLODIPine BESYLATE 5 MG TAB PO SCH (08:16)
[2023-12-30] MEDS: CLOPIDOGREL BISULFATE 75 MG TAB PO SCH (08:16)
[2023-12-30] MEDS: ASPIRIN 81 MG CHEW PO SCH (08:16)
[2023-12-30] MEDS: AMIODARONE 200 MG TAB PO SCH (08:21)
[2023-12-30 08:43] LABS: BUN Creatinine Ratio 14.5 (10-20); Calcium 9.2 mg/dl (8.6-10.3); Creatinine Clr Calc Pharmacy 33.8 ml/min; Est GFR (African American) 44.1 ml/min; Est GFR (Non-African American) 38.1 ml/min; Potassium 4.1 mmol/L (3.5-5.1)
[2023-12-30] MEDS ORDERED: PYRIDOSTIGMINE SUSTAINED REL 180 MG TABCR PO SCH (09:00)
[2023-12-30] MEDS: LEVOTHYROXINE SODIUM 50 MCG TABLET PO SCH (11:37)
--- OUTSIDE RECORDS SUMMARY | 2023-12-30 16:21 | External Medical Summary ---
Author Name Unknown Address Unknown Organization : Laboratory Report Ordering Provider Test Date Status SAMI BEASLEY 12/26/2023 06:53:16 Final Observation Date Value Abnormality Reference (Units ) Status Glucose Point of Care 12/26/2023 06:53:16 98 70-120 (mg/dL) Final Performing Location
--- OUTSIDE RECORDS SUMMARY | 2023-12-30 16:21 | External Medical Summary ---
Author Name Unknown Address Unknown Organization : Laboratory Report Ordering Provider Test Date Status SAMI BEASLEY 12/26/2023 23:45:27 Final Observation Date Value Abnormality Reference (Units ) Status Glucose Point of Care 12/26/2023 23:45:27 108 70-120 (mg/dL) Final Performing Location
--- OUTSIDE RECORDS SUMMARY | 2023-12-30 16:21 | External Medical Summary ---
Author Name Unknown Address Unknown Organization : Laboratory Report Ordering Provider Test Date Status PAUL LAMAR 12/28/2023 06:20:17 Final Observation Date Value Abnormality Reference (Units ) Status Glucose Point of Care 12/28/2023 06:20:17 83 70-120 (mg/dL) Final Performing Location
--- OUTSIDE RECORDS SUMMARY | 2023-12-30 16:21 | External Medical Summary ---
Author Name Unknown Address Unknown Organization : Laboratory Report Ordering Provider Test Date Status SAMI BEASLEY 12/26/2023 18:09:55 Final Observation Date Value Abnormality Reference (Units ) Status Glucose Point of Care 12/26/2023 18:09:55 111 70-120 (mg/dL) Final Performing Location
--- OUTSIDE RECORDS SUMMARY | 2023-12-30 16:21 | External Medical Summary ---
Author Name Unknown Address Unknown Organization : Laboratory Report Ordering Provider Test Date Status PAUL LAMAR 12/27/2023 06:16:12 Final Observation Date Value Abnormality Reference (Units ) Status Glucose Point of Care 12/27/2023 06:16:12 120 70-120 (mg/dL) Final Performing Location
--- OUTSIDE RECORDS SUMMARY | 2023-12-30 16:21 | External Medical Summary ---
Author Name Unknown Address Unknown Organization : Laboratory Report Ordering Provider Test Date Status PAUL LAMAR 12/28/2023 17:39:49 Final Observation Date Value Abnormality Reference (Units ) Status Glucose Point of Care 12/28/2023 17:39:49 126 Above high normal 70-120 (mg/dL) Final Performing Location
--- OUTSIDE RECORDS SUMMARY | 2023-12-30 16:21 | External Medical Summary ---
Author Name Unknown Address Unknown Organization : Laboratory Report Ordering Provider Test Date Status PAUL LAMAR 12/27/2023 17:31:23 Final Observation Date Value Abnormality Reference (Units ) Status Glucose Point of Care 12/27/2023 17:31:23 116 70-120 (mg/dL) Final Performing Location
--- OUTSIDE RECORDS SUMMARY | 2023-12-30 16:21 | External Medical Summary ---
Author Name Unknown Address Unknown Organization : Laboratory Report Ordering Provider Test Date Status PAUL LAMAR 12/28/2023 06:48:25 Final Observation Date Value Abnormality Reference (Units ) Status Glucose Point of Care 12/28/2023 06:48:25 118 70-120 (mg/dL) Final Performing Location
--- OUTSIDE RECORDS SUMMARY | 2023-12-30 16:21 | External Medical Summary ---
Author Name Unknown Address Unknown Organization : Laboratory Report Ordering Provider Test Date Status PAUL LAMAR 12/28/2023 11:42:20 Final Observation Date Value Abnormality Reference (Units ) Status Glucose Point of Care 12/28/2023 11:42:20 111 70-120 (mg/dL) Final Performing Location
--- OUTSIDE RECORDS SUMMARY | 2023-12-30 16:21 | External Medical Summary ---
Author Name Unknown Address Unknown Organization : Laboratory Report Ordering Provider Test Date Status SAMI BEASLEY 12/26/2023 06:12:59 Final Observation Date Value Abnormality Reference (Units ) Status Glucose Point of Care 12/26/2023 06:12:59 78 70-120 (mg/dL) Final Performing Location
--- OUTSIDE RECORDS SUMMARY | 2023-12-30 16:21 | External Medical Summary ---
Author Name Unknown Address Unknown Organization : Laboratory Report Ordering Provider Test Date Status PAUL LAMAR 12/29/2023 00:30:10 Final Observation Date Value Abnormality Reference (Units ) Status Glucose Point of Care 12/29/2023 00:30:10 89 70-120 (mg/dL) Final Performing Location
--- OUTSIDE RECORDS SUMMARY | 2023-12-30 16:21 | External Medical Summary ---
Author Name Unknown Address Unknown Organization : Laboratory Report Ordering Provider Test Date Status PAUL LAMAR 12/28/2023 05:56:46 Final Observation Date Value Abnormality Reference (Units ) Status Glucose Point of Care 12/28/2023 05:56:46 65 Below low normal 70-120 (mg/dL) Final Performing Location
--- OUTSIDE RECORDS SUMMARY | 2023-12-30 16:21 | External Medical Summary ---
Author Name Unknown Address Unknown Organization : Laboratory Report Ordering Provider Test Date Status SAMI BEASLEY 12/26/2023 11:40:19 Final Observation Date Value Abnormality Reference (Units ) Status Glucose Point of Care 12/26/2023 11:40:19 109 70-120 (mg/dL) Final Performing Location
--- OUTSIDE RECORDS SUMMARY | 2023-12-30 16:21 | External Medical Summary ---
Author Name Unknown Address Unknown Organization : Laboratory Report Ordering Provider Test Date Status PAUL LAMAR 12/27/2023 11:45:23 Final Observation Date Value Abnormality Reference (Units ) Status Glucose Point of Care 12/27/2023 11:45:23 130 Above high normal 70-120 (mg/dL) Final Performing Location
--- OUTSIDE RECORDS SUMMARY | 2023-12-30 16:21 | External Medical Summary ---
Author Name Unknown Address Unknown Organization : Laboratory Report Ordering Provider Test Date Status PAUL LAMAR 12/28/2023 06:15:33 Final Observation Date Value Abnormality Reference (Units ) Status Glucose Point of Care 12/28/2023 06:15:33 80 70-120 (mg/dL) Final Performing Location
--- OUTSIDE RECORDS SUMMARY | 2023-12-30 16:21 | External Medical Summary ---
Author Name Unknown Address Unknown Organization : Laboratory Report Ordering Provider Test Date Status PAUL LAMAR 12/28/2023 06:29:29 Final Observation Date Value Abnormality Reference (Units ) Status Glucose Point of Care 12/28/2023 06:29:29 81 70-120 (mg/dL) Final Performing Location
--- OUTSIDE RECORDS SUMMARY | 2023-12-30 16:22 | External Medical Summary ---
Author Name Unknown Address Unknown Organization : Laboratory Report Ordering Provider Test Date Status SAMI BEASLEY 12/20/2023 17:41:29 Final Observation Date Value Abnormality Reference (Units ) Status Glucose Point of Care 12/20/2023 17:41:29 100 70-120 (mg/dL) Final Performing Location
--- OUTSIDE RECORDS SUMMARY | 2023-12-30 16:22 | External Medical Summary ---
Author Name Unknown Address Unknown Organization : Laboratory Report Ordering Provider Test Date Status SAMI BEASLEY 12/22/2023 00:12:46 Final Observation Date Value Abnormality Reference (Units ) Status Glucose Point of Care 12/22/2023 00:12:46 68 Below low normal 70-120 (mg/dL) Final Performing Location
--- OUTSIDE RECORDS SUMMARY | 2023-12-30 16:22 | External Medical Summary ---
Author Name Unknown Address Unknown Organization [id number] [facility] - [address] [place] [id number] Laboratory Report Ordering Provider Test Date Status KARLA MEADE 12/18/2023 08:07:00 Final Observation Date Value Abnormality Reference (Units ) Status WBC, Total 12/18/2023 08:07:00 7.04 4.00-10.80 (K/uL) Final RBC 12/18/2023 08:07:00 3.45 4.50-5.25 (M/uL) Final Hemoglobin 12/18/2023 08:07:00 9.9 Below low normal 14.0-16.8 (g/dL) Final HCT 12/18/2023 08:07:00 32.6 Below low normal 40.0-48.4 (%) Final MCV 12/18/2023 08:07:00 94.5 82.0-99.5 (fL) Final MCH 12/18/2023 08:07:00 28.7 27.0-34.0 (pg) Final MCHC 12/18/2023 08:07:00 30.4 32.0-36.0 (g/dL) Final RDW 12/18/2023 08:07:00 14.6 11.5-15.5 (%) Final Platelets 12/18/2023 08:07:00 300 140-400 (K/uL) Final MPV 12/18/2023 08:07:00 11.2 6.6-11.1 (fL) Final Nucleated erythrocytes/100 leukocytes [Ratio] in Blood by Automated count 12/18/2023 08:07:00 0 <=0 (/100 WBCs) Final Performing Location LABORATORY [facility] - [address] [place] [id number]
--- OUTSIDE RECORDS SUMMARY | 2023-12-30 16:22 | External Medical Summary ---
Author Name Unknown Address Unknown Organization : Laboratory Report Ordering Provider Test Date Status KARLA MEADE 12/18/2023 11:40:27 Final Observation Date Value Abnormality Reference (Units ) Status Glucose Point of Care 12/18/2023 11:40:27 116 70-120 (mg/dL) Final Performing Location
--- OUTSIDE RECORDS SUMMARY | 2023-12-30 16:22 | External Medical Summary ---
Author Name Unknown Address Unknown Organization : Laboratory Report Ordering Provider Test Date Status KARLA MEADE 12/17/2023 17:54:43 Final Observation Date Value Abnormality Reference (Units ) Status Glucose Point of Care 12/17/2023 17:54:43 105 70-120 (mg/dL) Final Performing Location
--- OUTSIDE RECORDS SUMMARY | 2023-12-30 16:22 | External Medical Summary ---
Author Name Unknown Address Unknown Organization : Laboratory Report Ordering Provider Test Date Status SAMI BEASLEY 12/23/2023 06:15:37 Final Observation Date Value Abnormality Reference (Units ) Status Glucose Point of Care 12/23/2023 06:15:37 100 70-120 (mg/dL) Final Performing Location
--- OUTSIDE RECORDS SUMMARY | 2023-12-30 16:22 | External Medical Summary ---
Author Name Unknown Address Unknown Organization : Laboratory Report Ordering Provider Test Date Status KARLA MEADE 12/16/2023 17:45:12 Final Observation Date Value Abnormality Reference (Units ) Status Glucose Point of Care 12/16/2023 17:45:12 132 Above high normal 70-120 (mg/dL) Final Performing Location
--- OUTSIDE RECORDS SUMMARY | 2023-12-30 16:22 | External Medical Summary ---
Author Name Unknown Address Unknown Organization : Laboratory Report Ordering Provider Test Date Status SAMI BEASLEY 12/25/2023 00:06:21 Final Observation Date Value Abnormality Reference (Units ) Status Glucose Point of Care 12/25/2023 00:06:21 102 70-120 (mg/dL) Final Performing Location
--- OUTSIDE RECORDS SUMMARY | 2023-12-30 16:22 | External Medical Summary ---
Author Name Unknown Address Unknown Organization [id number]:LABORATORY [facility] - [address] [place] [id number] Laboratory Report Ordering Provider Test Date Status SAMI BEASLEY 12/20/2023 07:55:00 Final Observation Date Value Abnormality Reference (Units ) Status Phosphate 12/20/2023 07:55:00 3.3 2.5-4.8 (m g/dL) Final Performing Location LABORATORY [facility] - [address] [place] [id number]
--- OUTSIDE RECORDS SUMMARY | 2023-12-30 16:22 | External Medical Summary ---
Author Name Unknown Address Unknown Organization [id number]:LAB[facility]ATORY [facility] [place] - [address] [place] [id number] Laboratory Report Ordering Provider Test Date Status KARLA MEADE 12/24/2023 07:29:00 Final Observation Date Value Abnormality Reference (Units ) Status WBC, Total 12/24/2023 07:29:00 7.01 4.00-10.80 (K/uL) Final RBC 12/24/2023 07:29:00 4.36 4.50-5.25 (M/uL) Final Hemoglobin 12/24/2023 07:29:00 12.9 Below low normal 14.0-16.8 (g/dL) Final HCT 12/24/2023 07:29:00 39.5 Below low normal 40.0-48.4 (%) Final MCV 12/24/2023 07:29:00 90.6 82.0-99.5 (fL) Final MCH 12/24/2023 07:29:00 29.6 27.0-34.0 (pg) Final MCHC 12/24/2023 07:29:00 32.7 32.0-36.0 (g/dL) Final RDW 12/24/2023 07:29:00 14.6 11.5-15.5 (%) Final Platelets 12/24/2023 07:29:00 300 140-400 (K/uL) Final MPV 12/24/2023 07:29:00 10.2 6.6-11.1 (fL) Final Nucleated erythrocytes/100 leukocytes [Ratio] in Blood by Automated count 12/24/2023 07:29:00 0 <=0 (/100 WBCs) Final Performing Location LABORATORY [facility] - [address] [place] [id number]
--- OUTSIDE RECORDS SUMMARY | 2023-12-30 16:22 | External Medical Summary ---
Author Name Unknown Address Unknown Organization : Laboratory Report Ordering Provider Test Date Status SAMI BEASLEY 12/25/2023 11:42:27 Final Observation Date Value Abnormality Reference (Units ) Status Glucose Point of Care 12/25/2023 11:42:27 120 70-120 (mg/dL) Final Performing Location
--- OUTSIDE RECORDS SUMMARY | 2023-12-30 16:22 | External Medical Summary ---
Author Name Unknown Address Unknown Organization : Laboratory Report Ordering Provider Test Date Status KARLA MEADE 12/18/2023 05:38:57 Final Observation Date Value Abnormality Reference (Units ) Status Glucose Point of Care 12/18/2023 05:38:57 95 70-120 (mg/dL) Final Performing Location
--- OUTSIDE RECORDS SUMMARY | 2023-12-30 16:22 | External Medical Summary ---
Author Name Unknown Address Unknown Organization : Laboratory Report Ordering Provider Test Date Status SAMI BEASLEY 12/22/2023 01:41:22 Final Observation Date Value Abnormality Reference (Units ) Status Glucose Point of Care 12/22/2023 01:41:22 97 70-120 (mg/dL) Final Performing Location
--- OUTSIDE RECORDS SUMMARY | 2023-12-30 16:22 | External Medical Summary ---
Author Name Unknown Address Unknown Organization [id number]:LABORATORY [facility] - [address] [place] [address] Laboratory Report Ordering Provider Test Date Status SAMI BEASLEY 12/22/2023 05:57:00 Final Observation Date Value Abnormality Reference (Units ) Status T4, Free 12/22/2023 05:57:00 1.7 0.9-1.7 (n g/dL) Final Performing Location LABORATORY [facility] - [address] [place] [id number]
--- OUTSIDE RECORDS SUMMARY | 2023-12-30 16:22 | External Medical Summary ---
Author Name Unknown Address Unknown Organization [id number]:LAB[facility]ATORY [facility] [place] - [facility] [address] [place] [address] Laboratory Report Ordering Provider Test Date Status KARLA MEADE 12/24/2023 08:40:00 Final Observation Date Value Abnormality Reference (Units ) Status BUN 12/24/2023 08:40:00 9 6-20 (mg/dL) Final Creatinine 12/24/2023 08:40:00 1.0 0.6-1.2 (mg/dL) Final Glomerular filtration rate/1.73 sq M.predicted [Volume Rate/Area] in Serum, Plasma or Blood by Creatinine-based formula (CKD-EPI) 12/24/2023 08:40:00 79 >=60 (mL/min) Final eGFR is calculated based on the CKD-EPI 2020 equation SODIUM 12/24/2023 08:40:00 143 135-146 (m mol/L) Final Potassium 12/24/2023 08:40:00 3.9 3.5-5.1 (m mol/L) Final Cl 12/24/2023 08:40:00 106 98-107 (mm ol/L) Final CO2 12/24/2023 08:40:00 26 22-32 (mmo l/L) Final Anion gap 12/24/2023 08:40:00 11 7-15 (mmol /L) Final Glucose 12/24/2023 08:40:00 104 70-120 (mg /dL) Final Calcium 12/24/2023 08:40:00 9.0 8.4-10.2 ( mg/dL) Final Performing Location LABORATORY [facility] [place] - [address] [place] [id number]
--- OUTSIDE RECORDS SUMMARY | 2023-12-30 16:22 | External Medical Summary ---
Author Name Unknown Address Unknown Organization : Laboratory Report Ordering Provider Test Date Status SAMI BEASLEY 12/23/2023 00:10:19 Final Observation Date Value Abnormality Reference (Units ) Status Glucose Point of Care 12/23/2023 00:10:19 85 70-120 (mg/dL) Final Performing Location
--- OUTSIDE RECORDS SUMMARY | 2023-12-30 16:22 | External Medical Summary ---
Author Name Unknown Address Unknown Organization : Laboratory Report Ordering Provider Test Date Status KARLA MEADE 12/19/2023 17:57:04 Final Observation Date Value Abnormality Reference (Units ) Status Glucose Point of Care 12/19/2023 17:57:04 88 70-120 (mg/dL) Final Performing Location
--- OUTSIDE RECORDS SUMMARY | 2023-12-30 16:22 | External Medical Summary ---
Author Name Unknown Address Unknown Organization K01:LABORATORY [facility] [place] - [address] [place] [address] Laboratory Report Ordering Provider Test Date Status KARLA MEADE 12/19/2023 07:00:00 Final Observation Date Value Abnormality Reference (Units ) Status WBC, Total 12/19/2023 07:00:00 7.21 4.00-10.80 (K/uL) Final RBC 12/19/2023 07:00:00 4.05 4.50-5.25 (M/uL) Final Hemoglobin 12/19/2023 07:00:00 11.8 Below low normal 14.0-16.8 (g/dL) Final HCT 12/19/2023 07:00:00 37.9 Below low normal 40.0-48.4 (%) Final MCV 12/19/2023 07:00:00 93.6 82.0-99.5 (fL) Final MCH 12/19/2023 07:00:00 29.1 27.0-34.0 (pg) Final MCHC 12/19/2023 07:00:00 31.1 32.0-36.0 (g/dL) Final RDW 12/19/2023 07:00:00 14.5 11.5-15.5 (%) Final Platelets 12/19/2023 07:00:00 295 140-400 (K/uL) Final MPV 12/19/2023 07:00:00 10.7 6.6-11.1 (fL) Final Nucleated erythrocytes/100 leukocytes [Ratio] in Blood by Automated count 12/19/2023 07:00:00 0 <=0 (/100 WBCs) Final Performing Location LABORATORY [facility] - [address] [place] [address]
--- OUTSIDE RECORDS SUMMARY | 2023-12-30 16:22 | External Medical Summary ---
Author Name Unknown Address Unknown Organization : Laboratory Report Ordering Provider Test Date Status SAMI BEASLEY 12/24/2023 17:58:00 Final Observation Date Value Abnormality Reference (Units ) Status Glucose Point of Care 12/24/2023 17:58:00 102 70-120 (mg/dL) Final Performing Location
--- OUTSIDE RECORDS SUMMARY | 2023-12-30 16:22 | External Medical Summary ---
Author Name Unknown Address Unknown Organization : Laboratory Report Ordering Provider Test Date Status SAMI BEASLEY 12/26/2023 05:40:30 Final Observation Date Value Abnormality Reference (Units ) Status Glucose Point of Care 12/26/2023 05:40:30 71 70-120 (mg/dL) Final Performing Location
--- OUTSIDE RECORDS SUMMARY | 2023-12-30 16:22 | External Medical Summary ---
Author Name Unknown Address Unknown Organization : Laboratory Report Ordering Provider Test Date Status SAMI BEASLEY 12/22/2023 06:32:02 Final Observation Date Value Abnormality Reference (Units ) Status Glucose Point of Care 12/22/2023 06:32:02 58 Below low normal 70-120 (mg/dL) Final Performing Location
--- OUTSIDE RECORDS SUMMARY | 2023-12-30 16:22 | External Medical Summary ---
Author Name Unknown Address Unknown Organization : Laboratory Report Ordering Provider Test Date Status SAMI BEASLEY 12/21/2023 05:11:36 Final Observation Date Value Abnormality Reference (Units ) Status Glucose Point of Care 12/21/2023 05:11:36 81 70-120 (mg/dL) Final Performing Location
--- OUTSIDE RECORDS SUMMARY | 2023-12-30 16:22 | External Medical Summary ---
Author Name Unknown Address Unknown Organization K01:LABORATORY [facility] - [address] [place] [address] Laboratory Report Ordering Provider Test Date Status KARLA MEADE 12/17/2023 07:41:00 Final Observation Date Value Abnormality Reference (Units ) Status Magnesium 12/17/2023 07:41:00 2.2 1.5-2.6 (m g/dL) Final Performing Location LABORATORY [facility] - [address] [place] [address]
--- OUTSIDE RECORDS SUMMARY | 2023-12-30 16:22 | External Medical Summary ---
Author Name Unknown Address Unknown Organization K01:LABORATORY [facility] [place] - [facility] [address] [place] [address] Laboratory Report Ordering Provider Test Date Status KARLA MEADE 12/22/2023 05:57:00 Final Observation Date Value Abnormality Reference (Units ) Status BUN 12/22/2023 05:57:00 13 6-20 (mg/dL) Final Creatinine 12/22/2023 05:57:00 0.8 0.6-1.2 (mg/dL) Final Glomerular filtration rate/1.73 sq M.predicted [Volume Rate/Area] in Serum, Plasma or Blood by Creatinine-based formula (CKD-EPI) 12/22/2023 05:57:00 88 >=60 (mL/min) Final eGFR is calculated based on the CKD-EPI 2020 equation SODIUM 12/22/2023 05:57:00 141 135-146 (m mol/L) Final Potassium 12/22/2023 05:57:00 5.5 Above high normal 3. 5-5.1 (mmol/L) Final Result may be falsely elevat ed due to hemolysis. Cl 12/22/2023 05:57:00 103 98-107 (mm ol/L) Final CO2 12/22/2023 05:57:00 16 Below low normal 22- 32 (mmol/L) Final Anion gap 12/22/2023 05:57:00 22 Above high normal 7- 15 (mmol/L) Final Glucose 12/22/2023 05:57:00 57 Below low normal 70- 120 (mg/dL) Final Calcium 12/22/2023 05:57:00 9.3 8.4-10.2 ( mg/dL) Final Performing Location LABORATORY [facility] [place] - [address] [place] [address]
--- OUTSIDE RECORDS SUMMARY | 2023-12-30 16:22 | External Medical Summary ---
Author Name Unknown Address Unknown Organization K01:LABORATORY [facility] [place] - [address] [place] [address] Laboratory Report Ordering Provider Test Date Status KARLA MEADE 12/17/2023 07:41:00 Final Observation Date Value Abnormality Reference (Units ) Status BUN 12/17/2023 07:41:00 16 6-20 (mg/dL) Final Creatinine 12/17/2023 07:41:00 0.9 0.6-1.2 (mg/dL) Final Glomerular filtration rate/1.73 sq M.predicted [Volume Rate/Area] in Serum, Plasma or Blood by Creatinine-based formula (CKD-EPI) 12/17/2023 07:41:00 87 >=60 (mL/min) Final eGFR is calculated based on the CKD-EPI 2020 equation SODIUM 12/17/2023 07:41:00 139 135-146 (m mol/L) Final Potassium 12/17/2023 07:41:00 3.7 3.5-5.1 (m mol/L) Final Cl 12/17/2023 07:41:00 106 98-107 (mm ol/L) Final CO2 12/17/2023 07:41:00 19 Below low normal 22- 32 (mmol/L) Final Anion gap 12/17/2023 07:41:00 14 7-15 (mmol /L) Final Glucose 12/17/2023 07:41:00 144 Above high normal 70 -120 (mg/dL) Final Calcium 12/17/2023 07:41:00 8.3 Below low normal 8.4 -10.2 (mg/dL) Final Performing Location LABORATORY [facility] [place] - [address] [place] [address]
--- OUTSIDE RECORDS SUMMARY | 2023-12-30 16:22 | External Medical Summary ---
Author Name Unknown Address Unknown Organization K01:LABORATORY [facility] [place] - [address] [place] [address] Laboratory Report Ordering Provider Test Date Status SAMI BEASLEY 12/22/2023 10:40:00 Final Observation Date Value Abnormality Reference (Units ) Status Potassium, Whole Blood 12/22/2023 10:40:00 4.2 3.5-5.1 (mmol/L) Final Performing Location LABORATORY C - [address] [place] [address]
--- OUTSIDE RECORDS SUMMARY | 2023-12-30 16:22 | External Medical Summary ---
Author Name Unknown Address Unknown Organization : Laboratory Report Ordering Provider Test Date Status SAMI BEASLEY 12/23/2023 18:12:47 Final Observation Date Value Abnormality Reference (Units ) Status Glucose Point of Care 12/23/2023 18:12:47 121 Above high normal 70-120 (mg/dL) Final Performing Location
--- OUTSIDE RECORDS SUMMARY | 2023-12-30 16:22 | External Medical Summary ---
Author Name Unknown Address Unknown Organization : Laboratory Report Ordering Provider Test Date Status SAMI BEASLEY 12/26/2023 00:13:44 Final Observation Date Value Abnormality Reference (Units ) Status Glucose Point of Care 12/26/2023 00:13:44 108 70-120 (mg/dL) Final Performing Location
--- OUTSIDE RECORDS SUMMARY | 2023-12-30 16:22 | External Medical Summary ---
Author Name Unknown Address Unknown Organization : Laboratory Report Ordering Provider Test Date Status SAMI BEASLEY 12/24/2023 00:22:56 Final Observation Date Value Abnormality Reference (Units ) Status Glucose Point of Care 12/24/2023 00:22:56 121 Above high normal 70-120 (mg/dL) Final Performing Location
--- OUTSIDE RECORDS SUMMARY | 2023-12-30 16:22 | External Medical Summary ---
Author Name Unknown Address Unknown Organization K01:[facility]ORY [facility] [place] [address] [place] [address] Laboratory Report Ordering Provider Test Date Status KARLA MAEDE 12/21/2023 07:40:00 Final Observation Date Value Abnormality Reference (Units ) Status BUN 12/21/2023 07:40:00 9 6-20 (mg/dL) Final Creatinine 12/21/2023 07:40:00 0.8 0.6-1.2 (mg/dL) Final Glomerular filtration rate/1.73 sq M.predicted [Volume Rate/Area] in Serum, Plasma or Blood by Creatinine-based formula (CKD-EPI) 12/21/2023 07:40:00 88 >=60 (mL/min) Final eGFR is calculated based on the CKD-EPI 2020 equation SODIUM 12/21/2023 07:40:00 140 135-146 (m mol/L) Final Potassium 12/21/2023 07:40:00 4.4 3.5-5.1 (m mol/L) Final Cl 12/21/2023 07:40:00 104 98-107 (mm ol/L) Final CO2 12/21/2023 07:40:00 26 22-32 (mmo l/L) Final Anion gap 12/21/2023 07:40:00 10 7-15 (mmol /L) Final Glucose 12/21/2023 07:40:00 75 70-120 (mg /dL) Final Calcium 12/21/2023 07:40:00 9.1 8.4-10.2 ( mg/dL) Final Performing Location LAB[facility]ATORY [facility] [place] [address] [place] [address]
--- OUTSIDE RECORDS SUMMARY | 2023-12-30 16:22 | External Medical Summary ---
Author Name Unknown Address Unknown Organization : Laboratory Report Ordering Provider Test Date Status KARLA MEADE 12/16/2023 23:23:08 Final Observation Date Value Abnormality Reference (Units ) Status Glucose Point of Care 12/16/2023 23:23:08 139 Above high normal 70-120 (mg/dL) Final Performing Location
--- OUTSIDE RECORDS SUMMARY | 2023-12-30 16:22 | External Medical Summary ---
Author Name Unknown Address Unknown Organization K01:[place] [address] [place] [address] Laboratory Report Ordering Provider Test Date Status KARLA MEADE 12/20/2023 07:55:00 Final Observation Date Value Abnormality Reference (Units ) Status WBC, Total 12/20/2023 07:55:00 7.46 4.00-10.80 (K/uL) Final RBC 12/20/2023 07:55:00 4.12 4.50-5.25 (M/uL) Final Hemoglobin 12/20/2023 07:55:00 12.1 Below low normal 14.0-16.8 (g/dL) Final HCT 12/20/2023 07:55:00 38.0 Below low normal 40.0-48.4 (%) Final MCV 12/20/2023 07:55:00 92.2 82.0-99.5 (fL) Final MCH 12/20/2023 07:55:00 29.4 27.0-34.0 (pg) Final MCHC 12/20/2023 07:55:00 31.8 32.0-36.0 (g/dL) Final RDW 12/20/2023 07:55:00 14.4 11.5-15.5 (%) Final Platelets 12/20/2023 07:55:00 305 140-400 (K/uL) Final MPV 12/20/2023 07:55:00 10.6 6.6-11.1 (fL) Final Nucleated erythrocytes/100 leukocytes [Ratio] in Blood by Automated count 12/20/2023 07:55:00 0 <=0 (/100 WBCs) Final Performing Location LABORATORY C - [address] [place] [address]
--- OUTSIDE RECORDS SUMMARY | 2023-12-30 16:22 | External Medical Summary ---
Author Name Unknown Address Unknown Organization : Laboratory Report Ordering Provider Test Date Status KARLA MEADE 12/17/2023 23:21:16 Final Observation Date Value Abnormality Reference (Units ) Status Glucose Point of Care 12/17/2023 23:21:16 121 Above high normal 70-120 (mg/dL) Final Performing Location
--- OUTSIDE RECORDS SUMMARY | 2023-12-30 16:22 | External Medical Summary ---
Author Name Unknown Address Unknown Organization : Laboratory Report Ordering Provider Test Date Status SAMI BEASLEY 12/20/2023 23:06:23 Final Observation Date Value Abnormality Reference (Units ) Status Glucose Point of Care 12/20/2023 23:06:23 97 70-120 (mg/dL) Final Performing Location
--- OUTSIDE RECORDS SUMMARY | 2023-12-30 16:22 | External Medical Summary ---
Author Name Unknown Address Unknown Organization K01:LABORATORY [facility] [place] - [address] [place] [address] Laboratory Report Ordering Provider Test Date Status SAMI BEASLEY 12/22/2023 05:57:00 Final Observation Date Value Abnormality Reference (Units ) Status TSH 12/22/2023 05:57:00 6.25 Above high normal 0. 27-4.20 (uIU/mL) Final Performing Location LABORATORY [facility] - [address] [place] [address]
--- OUTSIDE RECORDS SUMMARY | 2023-12-30 16:22 | External Medical Summary ---
Author Name Unknown Address Unknown Organization K01:[place] [place] [address] [place] [address] [place] [address] Laboratory Report Ordering Provider Test Date Status KARLA MEADE 12/23/2023 07:58:00 Final Observation Date Value Abnormality Reference (Units ) Status WBC, Total 12/23/2023 07:58:00 8.11 4.00-10.80 (K/uL) Final RBC 12/23/2023 07:58:00 4.36 4.50-5.25 (M/uL) Final Hemoglobin 12/23/2023 07:58:00 12.6 Below low normal 14.0-16.8 (g/dL) Final HCT 12/23/2023 07:58:00 39.6 Below low normal 40.0-48.4 (%) Final MCV 12/23/2023 07:58:00 90.8 82.0-99.5 (fL) Final MCH 12/23/2023 07:58:00 28.9 27.0-34.0 (pg) Final MCHC 12/23/2023 07:58:00 31.8 32.0-36.0 (g/dL) Final RDW 12/23/2023 07:58:00 14.6 11.5-15.5 (%) Final Platelets 12/23/2023 07:58:00 299 140-400 (K/uL) Final MPV 12/23/2023 07:58:00 10.6 6.6-11.1 (fL) Final Nucleated erythrocytes/100 leukocytes [Ratio] in Blood by Automated count 12/23/2023 07:58:00 0 <=0 (/100 WBCs) Final Performing Location LABORATORY C - [address] [place] [address]
--- OUTSIDE RECORDS SUMMARY | 2023-12-30 16:22 | External Medical Summary ---
Author Name Unknown Address Unknown Organization K01:LAB[facility]ATORY [facility] [place] - [facility] [address] [place] [address] Laboratory Report Ordering Provider Test Date Status KARLA MEADE 12/19/2023 07:00:00 Final Observation Date Value Abnormality Reference (Units ) Status BUN 12/19/2023 07:00:00 8 6-20 (mg/dL) Final Creatinine 12/19/2023 07:00:00 0.7 0.6-1.2 (mg/dL) Final Glomerular filtration rate/1.73 sq M.predicted [Volume Rate/Area] in Serum, Plasma or Blood by Creatinine-based formula (CKD-EPI) 12/19/2023 07:00:00 >90 >=60 (mL/min) Final eGFR is calculated based on the CKD-EPI 2020 equation SODIUM 12/19/2023 07:00:00 142 135-146 (m mol/L) Final Potassium 12/19/2023 07:00:00 3.5 3.5-5.1 (m mol/L) Final Cl 12/19/2023 07:00:00 106 98-107 (mm ol/L) Final CO2 12/19/2023 07:00:00 26 22-32 (mmo l/L) Final Anion gap 12/19/2023 07:00:00 10 7-15 (mmol /L) Final Glucose 12/19/2023 07:00:00 99 70-120 (mg /dL) Final Calcium 12/19/2023 07:00:00 8.6 8.4-10.2 ( mg/dL) Final Performing Location LABORATORY [facility] [place] - [address] [place] [address]
--- OUTSIDE RECORDS SUMMARY | 2023-12-30 16:22 | External Medical Summary ---
Author Name Unknown Address Unknown Organization : Laboratory Report Ordering Provider Test Date Status SAMI BEASLEY 12/22/2023 17:32:13 Final Observation Date Value Abnormality Reference (Units ) Status Glucose Point of Care 12/22/2023 17:32:13 124 Above high normal 70-120 (mg/dL) Final Performing Location
--- OUTSIDE RECORDS SUMMARY | 2023-12-30 16:22 | External Medical Summary ---
Author Name Unknown Address Unknown Organization K01:[place] [place] [facility] [address] [place] [address] Laboratory Report Ordering Provider Test Date Status KARLA MEADE 12/23/2023 07:58:00 Final Observation Date Value Abnormality Reference (Units ) Status BUN 12/23/2023 07:58:00 11 6-20 (mg/dL) Final Creatinine 12/23/2023 07:58:00 0.9 0.6-1.2 (mg/dL) Final Glomerular filtration rate/1.73 sq M.predicted [Volume Rate/Area] in Serum, Plasma or Blood by Creatinine-based formula (CKD-EPI) 12/23/2023 07:58:00 84 >=60 (mL/min) Final eGFR is calculated based on the CKD-EPI 2020 equation SODIUM 12/23/2023 07:58:00 137 135-146 (m mol/L) Final Potassium 12/23/2023 07:58:00 4.6 3.5-5.1 (m mol/L) Final Cl 12/23/2023 07:58:00 103 98-107 (mm ol/L) Final CO2 12/23/2023 07:58:00 21 Below low normal 22- 32 (mmol/L) Final Anion gap 12/23/2023 07:58:00 13 7-15 (mmol /L) Final Glucose 12/23/2023 07:58:00 92 70-120 (mg /dL) Final Calcium 12/23/2023 07:58:00 8.7 8.4-10.2 ( mg/dL) Final Performing Location [facility] [place] [address] [place] [address]
--- OUTSIDE RECORDS SUMMARY | 2023-12-30 16:22 | External Medical Summary ---
Author Name Unknown Address Unknown Organization : Laboratory Report Ordering Provider Test Date Status SAMI BEASLEY 12/23/2023 11:51:13 Final Observation Date Value Abnormality Reference (Units ) Status Glucose Point of Care 12/23/2023 11:51:13 119 70-120 (mg/dL) Final Performing Location
--- OUTSIDE RECORDS SUMMARY | 2023-12-30 16:22 | External Medical Summary ---
Author Name Unknown Address Unknown Organization : Laboratory Report Ordering Provider Test Date Status SAMI BEASLEY 12/25/2023 06:04:59 Final Observation Date Value Abnormality Reference (Units ) Status Glucose Point of Care 12/25/2023 06:04:59 97 70-120 (mg/dL) Final Performing Location
--- OUTSIDE RECORDS SUMMARY | 2023-12-30 16:22 | External Medical Summary ---
Author Name Unknown Address Unknown Organization K01:LABORATORY [facility] [place] - [address] [place] [address] Laboratory Report Ordering Provider Test Date Status KARLA MEADE 12/22/2023 05:57:00 Final Observation Date Value Abnormality Reference (Units ) Status WBC, Total 12/22/2023 05:57:00 7.48 4.00-10.80 (K/uL) Final RBC 12/22/2023 05:57:00 4.81 4.50-5.25 (M/uL) Final Hemoglobin 12/22/2023 05:57:00 13.9 Below low normal 14.0-16.8 (g/dL) Final HCT 12/22/2023 05:57:00 44.9 40.0-48.4 (%) Final MCV 12/22/2023 05:57:00 93.3 82.0-99.5 (fL) Final MCH 12/22/2023 05:57:00 28.9 27.0-34.0 (pg) Final MCHC 12/22/2023 05:57:00 31.0 32.0-36.0 (g/dL) Final RDW 12/22/2023 05:57:00 14.5 11.5-15.5 (%) Final Platelets 12/22/2023 05:57:00 328 140-400 (K/uL) Final MPV 12/22/2023 05:57:00 10.9 6.6-11.1 (fL) Final Nucleated erythrocytes/100 leukocytes [Ratio] in Blood by Automated count 12/22/2023 05:57:00 0 <=0 (/100 WBCs) Final Performing Location LABORATORY [facility] [place] - [address] [place] [address]
--- OUTSIDE RECORDS SUMMARY | 2023-12-30 16:22 | External Medical Summary ---
Author Name Unknown Address Unknown Organization K01:[place] [facility] [place] [address] [place] [address] Laboratory Report Ordering Provider Test Date Status KARLA MEADE 12/18/2023 08:07:00 Final Observation Date Value Abnormality Reference (Units ) Status BUN 12/18/2023 08:07:00 12 6-20 (mg/dL) Final Creatinine 12/18/2023 08:07:00 0.7 0.6-1.2 (mg/dL) Final Glomerular filtration rate/1.73 sq M.predicted [Volume Rate/Area] in Serum, Plasma or Blood by Creatinine-based formula (CKD-EPI) 12/18/2023 08:07:00 >90 >=60 (mL/min) Final eGFR is calculated based on the CKD-EPI 2020 equation SODIUM 12/18/2023 08:07:00 141 135-146 (m mol/L) Final Potassium 12/18/2023 08:07:00 3.4 Below low normal 3.5 -5.1 (mmol/L) Final Cl 12/18/2023 08:07:00 107 98-107 (mm ol/L) Final CO2 12/18/2023 08:07:00 24 22-32 (mmo l/L) Final Anion gap 12/18/2023 08:07:00 10 7-15 (mmol /L) Final Glucose 12/18/2023 08:07:00 141 Above high normal 70 -120 (mg/dL) Final Calcium 12/18/2023 08:07:00 8.2 Below low normal 8.4 -10.2 (mg/dL) Final Performing Location [place] [facility] [place] [address] [place] [address]
--- OUTSIDE RECORDS SUMMARY | 2023-12-30 16:22 | External Medical Summary ---
Author Name Unknown Address Unknown Organization : Laboratory Report Ordering Provider Test Date Status KARLA MEADE 12/18/2023 17:21:54 Final Observation Date Value Abnormality Reference (Units ) Status Glucose Point of Care 12/18/2023 17:21:54 103 70-120 (mg/dL) Final Performing Location
--- OUTSIDE RECORDS SUMMARY | 2023-12-30 16:22 | External Medical Summary ---
Author Name Unknown Address Unknown Organization : Laboratory Report Ordering Provider Test Date Status KARLA MEADE 12/19/2023 23:53:08 Final Observation Date Value Abnormality Reference (Units ) Status Glucose Point of Care 12/19/2023 23:53:08 99 70-120 (mg/dL) Final Performing Location
--- OUTSIDE RECORDS SUMMARY | 2023-12-30 16:22 | External Medical Summary ---
Author Name Unknown Address Unknown Organization : Laboratory Report Ordering Provider Test Date Status KARLA MEADE 12/17/2023 05:35:31 Final Observation Date Value Abnormality Reference (Units ) Status Glucose Point of Care 12/17/2023 05:35:31 114 70-120 (mg/dL) Final Performing Location
--- OUTSIDE RECORDS SUMMARY | 2023-12-30 16:22 | External Medical Summary ---
Author Name Unknown Address Unknown Organization K01:[place] [facility] [place] [address] [place] [address] Laboratory Report Ordering Provider Test Date Status KARLA MEADE 12/17/2023 07:41:00 Final Observation Date Value Abnormality Reference (Units ) Status WBC, Total 12/17/2023 07:41:00 7.71 4.00-10.80 (K/uL) Final RBC 12/17/2023 07:41:00 3.70 4.50-5.25 (M/uL) Final Hemoglobin 12/17/2023 07:41:00 10.8 Below low normal 14.0-16.8 (g/dL) Final HCT 12/17/2023 07:41:00 34.4 Below low normal 40.0-48.4 (%) Final MCV 12/17/2023 07:41:00 93.0 82.0-99.5 (fL) Final MCH 12/17/2023 07:41:00 29.2 27.0-34.0 (pg) Final MCHC 12/17/2023 07:41:00 31.4 32.0-36.0 (g/dL) Final RDW 12/17/2023 07:41:00 14.5 11.5-15.5 (%) Final Platelets 12/17/2023 07:41:00 315 140-400 (K/uL) Final MPV 12/17/2023 07:41:00 11.1 6.6-11.1 (fL) Final Nucleated erythrocytes/100 leukocytes [Ratio] in Blood by Automated count 12/17/2023 07:41:00 0 <=0 (/100 WBCs) Final Performing Location [place] [facility] [place] [address] [place] [address]
--- OUTSIDE RECORDS SUMMARY | 2023-12-30 16:22 | External Medical Summary ---
Author Name Unknown Address Unknown Organization : Laboratory Report Ordering Provider Test Date Status SAMI BEASLEY 12/20/2023 05:27:14 Final Observation Date Value Abnormality Reference (Units ) Status Glucose Point of Care 12/20/2023 05:27:14 87 70-120 (mg/dL) Final Performing Location
--- OUTSIDE RECORDS SUMMARY | 2023-12-30 16:22 | External Medical Summary ---
Author Name Unknown Address Unknown Organization K01:LABORATORY [facility] [place] - [address] [place] [address] Laboratory Report Ordering Provider Test Date Status KARLA MEADE 12/20/2023 07:55:00 Final Observation Date Value Abnormality Reference (Units ) Status BUN 12/20/2023 07:55:00 9 6-20 (mg/dL) Final Creatinine 12/20/2023 07:55:00 0.8 0.6-1.2 (mg/dL) Final Glomerular filtration rate/1.73 sq M.predicted [Volume Rate/Area] in Serum, Plasma or Blood by Creatinine-based formula (CKD-EPI) 12/20/2023 07:55:00 90 >=60 (mL/min) Final eGFR is calculated based on the CKD-EPI 2020 equation SODIUM 12/20/2023 07:55:00 141 135-146 (m mol/L) Final Potassium 12/20/2023 07:55:00 4.0 3.5-5.1 (m mol/L) Final Cl 12/20/2023 07:55:00 104 98-107 (mm ol/L) Final CO2 12/20/2023 07:55:00 24 22-32 (mmo l/L) Final Anion gap 12/20/2023 07:55:00 13 7-15 (mmol /L) Final Glucose 12/20/2023 07:55:00 83 70-120 (mg /dL) Final Calcium 12/20/2023 07:55:00 8.7 8.4-10.2 ( mg/dL) Final Performing Location LABORATORY [facility] [place] - [address] [place] [address]
--- OUTSIDE RECORDS SUMMARY | 2023-12-30 16:22 | External Medical Summary ---
Author Name Unknown Address Unknown Organization : Laboratory Report Ordering Provider Test Date Status SAMI BEASLEY 12/22/2023 12:08:35 Final Observation Date Value Abnormality Reference (Units ) Status Glucose Point of Care 12/22/2023 12:08:35 93 70-120 (mg/dL) Final Performing Location
--- OUTSIDE RECORDS SUMMARY | 2023-12-30 16:22 | External Medical Summary ---
Author Name Unknown Address Unknown Organization : Laboratory Report Ordering Provider Test Date Status SAMI BEASLEY 12/22/2023 18:03:38 Final Observation Date Value Abnormality Reference (Units ) Status Glucose Point of Care 12/22/2023 18:03:38 148 Above high normal 70-120 (mg/dL) Final Performing Location
--- OUTSIDE RECORDS SUMMARY | 2023-12-30 16:22 | External Medical Summary ---
Author Name Unknown Address Unknown Organization : Laboratory Report Ordering Provider Test Date Status KARLA MEADE 12/19/2023 05:37:45 Final Observation Date Value Abnormality Reference (Units ) Status Glucose Point of Care 12/19/2023 05:37:45 114 70-120 (mg/dL) Final Performing Location
--- OUTSIDE RECORDS SUMMARY | 2023-12-30 16:22 | External Medical Summary ---
Author Name Unknown Address Unknown Organization : Laboratory Report Ordering Provider Test Date Status SAMI BEASLEY 12/21/2023 12:12:29 Final Observation Date Value Abnormality Reference (Units ) Status Glucose Point of Care 12/21/2023 12:12:29 74 70-120 (mg/dL) Final Performing Location
--- OUTSIDE RECORDS SUMMARY | 2023-12-30 16:22 | External Medical Summary ---
Author Name Unknown Address Unknown Organization : Laboratory Report Ordering Provider Test Date Status SAMI BEASLEY 12/24/2023 12:26:22 Final Observation Date Value Abnormality Reference (Units ) Status Glucose Point of Care 12/24/2023 12:26:22 138 Above high normal 70-120 (mg/dL) Final Performing Location
--- OUTSIDE RECORDS SUMMARY | 2023-12-30 16:22 | External Medical Summary ---
Author Name Unknown Address Unknown Organization : Laboratory Report Ordering Provider Test Date Status SAMI BEASLEY 12/22/2023 00:17:13 Final Observation Date Value Abnormality Reference (Units ) Status Glucose Point of Care 12/22/2023 00:17:13 67 Below low normal 70-120 (mg/dL) Final Performing Location
--- OUTSIDE RECORDS SUMMARY | 2023-12-30 16:22 | External Medical Summary ---
Author Name Unknown Address Unknown Organization K01:[place] [facility] [place] [facility] [address] [place] [address] Laboratory Report Ordering Provider Test Date Status KARLA MEADE 12/25/2023 09:08:00 Final Observation Date Value Abnormality Reference (Units ) Status BUN 12/25/2023 09:08:00 9 6-20 (mg/dL) Final Creatinine 12/25/2023 09:08:00 1.0 0.6-1.2 (mg/dL) Final Glomerular filtration rate/1.73 sq M.predicted [Volume Rate/Area] in Serum, Plasma or Blood by Creatinine-based formula (CKD-EPI) 12/25/2023 09:08:00 75 >=60 (mL/min) Final eGFR is calculated based on the CKD-EPI 2020 equation SODIUM 12/25/2023 09:08:00 138 135-146 (m mol/L) Final Potassium 12/25/2023 09:08:00 4.1 3.5-5.1 (m mol/L) Final Cl 12/25/2023 09:08:00 107 98-107 (mm ol/L) Final CO2 12/25/2023 09:08:00 20 Below low normal 22- 32 (mmol/L) Final Anion gap 12/25/2023 09:08:00 11 7-15 (mmol /L) Final Glucose 12/25/2023 09:08:00 98 70-120 (mg /dL) Final Calcium 12/25/2023 09:08:00 8.8 8.4-10.2 ( mg/dL) Final Performing Location [place] [facility] [place] [address] [place] [address]
--- OUTSIDE RECORDS SUMMARY | 2023-12-30 16:22 | External Medical Summary ---
Author Name Unknown Address Unknown Organization : Laboratory Report Ordering Provider Test Date Status KARLA MEADE 12/19/2023 00:01:24 Final Observation Date Value Abnormality Reference (Units ) Status Glucose Point of Care 12/19/2023 00:01:24 90 70-120 (mg/dL) Final Performing Location
--- OUTSIDE RECORDS SUMMARY | 2023-12-30 16:22 | External Medical Summary ---
Author Name Unknown Address Unknown Organization K01:LABORATORY [facility] [place] - [address] [place] [address] Laboratory Report Ordering Provider Test Date Status KARLA MEADE 12/21/2023 07:40:00 Final Observation Date Value Abnormality Reference (Units ) Status WBC, Total 12/21/2023 07:40:00 7.03 4.00-10.80 (K/uL) Final RBC 12/21/2023 07:40:00 4.37 4.50-5.25 (M/uL) Final Hemoglobin 12/21/2023 07:40:00 12.9 Below low normal 14.0-16.8 (g/dL) Final HCT 12/21/2023 07:40:00 41.1 40.0-48.4 (%) Final MCV 12/21/2023 07:40:00 94.1 82.0-99.5 (fL) Final MCH 12/21/2023 07:40:00 29.5 27.0-34.0 (pg) Final MCHC 12/21/2023 07:40:00 31.4 32.0-36.0 (g/dL) Final RDW 12/21/2023 07:40:00 14.4 11.5-15.5 (%) Final Platelets 12/21/2023 07:40:00 313 140-400 (K/uL) Final MPV 12/21/2023 07:40:00 10.6 6.6-11.1 (fL) Final Nucleated erythrocytes/100 leukocytes [Ratio] in Blood by Automated count 12/21/2023 07:40:00 0 <=0 (/100 WBCs) Final Performing Location LABORATORY [facility] [place] - [address] [place] [address]
--- OUTSIDE RECORDS SUMMARY | 2023-12-30 16:22 | External Medical Summary ---
Author Name Unknown Address Unknown Organization K01:LABORATORY [facility] [place] - [address] [place] [address] [place] [address] Laboratory Report Ordering Provider Test Date Status KARLA MEADE 12/25/2023 09:08:00 Final Observation Date Value Abnormality Reference (Units ) Status WBC, Total 12/25/2023 09:08:00 6.68 4.00-10.80 (K/uL) Final RBC 12/25/2023 09:08:00 4.53 4.50-5.25 (M/uL) Final Hemoglobin 12/25/2023 09:08:00 13.3 Below low normal 14.0-16.8 (g/dL) Final HCT 12/25/2023 09:08:00 42.3 40.0-48.4 (%) Final MCV 12/25/2023 09:08:00 93.4 82.0-99.5 (fL) Final MCH 12/25/2023 09:08:00 29.4 27.0-34.0 (pg) Final MCHC 12/25/2023 09:08:00 31.4 32.0-36.0 (g/dL) Final RDW 12/25/2023 09:08:00 15.0 11.5-15.5 (%) Final Platelets 12/25/2023 09:08:00 289 140-400 (K/uL) Final MPV 12/25/2023 09:08:00 10.0 6.6-11.1 (fL) Final Nucleated erythrocytes/100 leukocytes [Ratio] in Blood by Automated count 12/25/2023 09:08:00 0 <=0 (/100 WBCs) Final Performing Location LABORATORY [facility] [place] - [address] [place] [address]
--- OUTSIDE RECORDS SUMMARY | 2023-12-30 16:23 | External Medical Summary ---
Author Name Unknown Address Unknown Organization K01:LABORATORY [facility] [place] - [facility] [address] [place] [address] Laboratory Report Ordering Provider Test Date Status RICCO MARTELL 12/13/2023 23:27:36 Final Observation Date Value Abnormality Reference (Units) Status Source 12/13/2023 23:27:36 Liquid Final Clostridioides difficile toxin and BI-[id number] strain DNA panel - Stool by BHAVANA with probe detection 12/13/2023 23:27:36 Positive for C. difficile toxin B gene DNA by PCR (Amplified Probe). Presumptive negative for C. difficile 027-NAP1-B1 strain by PCR (Amplified Probe). Abnormal Negative Final Performing Location LABORATORY [facility] [place] - [address] [place] [address]
--- OUTSIDE RECORDS SUMMARY | 2023-12-30 16:23 | External Medical Summary ---
Author Name Unknown Address Unknown Organization : Laboratory Report Ordering Provider Test Date Status URIEL ARMSTRONG 12/11/2023 06:20:02 Final Observation Date Value Abnormality Reference (Units ) Status Glucose Point of Care 12/11/2023 06:20:02 139 Above high normal 70-120 (mg/dL) Final Performing Location
--- OUTSIDE RECORDS SUMMARY | 2023-12-30 16:23 | External Medical Summary ---
Author Name Unknown Address Unknown Organization K01:LAB[place]ATORY [facility] [place] - [facility] [address] [place] [address] Laboratory Report Ordering Provider Test Date Status URIEL ARMSTRONG 12/13/2023 07:57:00 Final Observation Date Value Abnormality Reference (Units ) Status BUN 12/13/2023 07:57:00 22 Above high normal 6-20 (mg/dL) Final Creatinine 12/13/2023 07:57:00 1.0 0.6-1.2 (mg/dL) Final Glomerular filtration rate/1.73 sq M.predicted [Volume Rate/Area] in Serum, Plasma or Blood by Creatinine-based formula (CKD-EPI) 12/13/2023 07:57:00 80 >=60 (mL/min) Final eGFR is calculated based on the CKD-EPI 2020 equation SODIUM 12/13/2023 07:57:00 140 135-146 (m mol/L) Final Potassium 12/13/2023 07:57:00 3.4 Below low normal 3.5 -5.1 (mmol/L) Final Cl 12/13/2023 07:57:00 106 98-107 (mm ol/L) Final CO2 12/13/2023 07:57:00 25 22-32 (mmo l/L) Final Anion gap 12/13/2023 07:57:00 9 7-15 (mmol /L) Final Glucose 12/13/2023 07:57:00 135 Above high normal 70 -120 (mg/dL) Final Calcium 12/13/2023 07:57:00 8.5 8.4-10.2 ( mg/dL) Final Performing Location LABORATORY [facility] [place] - [address] [place] [address]
--- OUTSIDE RECORDS SUMMARY | 2023-12-30 16:23 | External Medical Summary ---
Author Name Unknown Address Unknown Organization : Laboratory Report Ordering Provider Test Date Status KARLA MEADE 12/13/2023 05:22:16 Final Observation Date Value Abnormality Reference (Units ) Status Glucose Point of Care 12/13/2023 05:22:16 129 Above high normal 70-120 (mg/dL) Final Performing Location
--- OUTSIDE RECORDS SUMMARY | 2023-12-30 16:23 | External Medical Summary ---
Author Name Unknown Address Unknown Organization K01[facility] [address] Laboratory Report Ordering Provider Test Date Status URIEL ARMSTRONG 12/09/2023 09:53:36 Final Cutoff Concentrations:
Drug Level
Amphetamines 500 ng/mL
Benzodiazepines 100 ng/mL
Cannabinoids 50 ng/mL
Cocaine Metabolite 150 ng/mL
Fentanyl 1 ng/mL
Hydrocodone / Hydromorphone 300 ng/mL
Methadone Metabolite 100 ng/mL
Morphine / Codeine 300 ng/mL
Oxycodone / Oxymorphone 100 ng/mL

Screening results are presumptive and can only be used for medical purposes. Positive screening results are reflexed to confirmatory testing. Observation Date Value Abnormality Reference (Units ) Status Amphetamines, Urine screen 12/09/2023 09:53:36 Negative Negative Final Benzodiazepines, Urine screen 12/09/2023 09:53:36 Negative Negative Final Cannabinoids, Urine screen 12/09/2023 09:53:36 Negative Negative Final Cocaine Metabolite, Urine screen 12/09/2023 09:53:36 Negative Negative Final fentaNYL [Presence] in Urine by Screen method 12/09/2023 09:53:36 Negative Negative Final HYDROcodone [Presence] in Urine by Screen method 12/09/2023 09:53:36 Negative Negative Final 3-Vxsqntgooo-5,5-Dimeth yl-3,3-Diphenylpyrrolid ine (EDDP) [Presence] in Urine 12/09/2023 09:53:36 Negative Negative Final Opiates, Urine screen 12/09/2023 09:53:36 Negative Negative Final oxyCODONE [Presence] in Urine by Screen method 12/09/2023 09:53:36 Negative Negative Final Performing Location LABORATORY [place] [address] [facility] [address]
--- OUTSIDE RECORDS SUMMARY | 2023-12-30 16:23 | External Medical Summary ---
Author Name Unknown Address Unknown Organization : Laboratory Report Ordering Provider Test Date Status URIEL ARMSTRONG 12/09/2023 12:07:36 Final Observation Date Value Abnormality Reference (Units ) Status Glucose Point of Care 12/09/2023 12:07:36 146 Above high normal 70-120 (mg/dL) Final Performing Location
--- OUTSIDE RECORDS SUMMARY | 2023-12-30 16:23 | External Medical Summary ---
Author Name Unknown Address Unknown Organization : Laboratory Report Ordering Provider Test Date Status KARLA MEADE 12/13/2023 11:52:28 Final Observation Date Value Abnormality Reference (Units ) Status Glucose Point of Care 12/13/2023 11:52:28 132 Above high normal 70-120 (mg/dL) Final Performing Location
--- OUTSIDE RECORDS SUMMARY | 2023-12-30 16:23 | External Medical Summary ---
Author Name Unknown Address Unknown Organization : Laboratory Report Ordering Provider Test Date Status URIEL ARMSTRONG 12/10/2023 17:09:49 Final Observation Date Value Abnormality Reference (Units ) Status Glucose Point of Care 12/10/2023 17:09:49 124 Above high normal 70-120 (mg/dL) Final Performing Location
--- OUTSIDE RECORDS SUMMARY | 2023-12-30 16:23 | External Medical Summary ---
Author Name Unknown Address Unknown Organization : Laboratory Report Ordering Provider Test Date Status KARLA MEADE 12/15/2023 00:27:44 Final Observation Date Value Abnormality Reference (Units ) Status Glucose Point of Care 12/15/2023 00:27:44 125 Above high normal 70-120 (mg/dL) Final Performing Location
--- OUTSIDE RECORDS SUMMARY | 2023-12-30 16:23 | External Medical Summary ---
Author Name Unknown Address Unknown Organization : Laboratory Report Ordering Provider Test Date Status KARLA MEADE 12/15/2023 23:47:47 Final Observation Date Value Abnormality Reference (Units ) Status Glucose Point of Care 12/15/2023 23:47:47 140 Above high normal 70-120 (mg/dL) Final Performing Location
--- OUTSIDE RECORDS SUMMARY | 2023-12-30 16:23 | External Medical Summary ---
Author Name Unknown Address Unknown Organization : Laboratory Report Ordering Provider Test Date Status URIEL ARMSTRONG 12/11/2023 00:02:50 Final Observation Date Value Abnormality Reference (Units ) Status Glucose Point of Care 12/11/2023 00:02:50 138 Above high normal 70-120 (mg/dL) Final Performing Location
--- OUTSIDE RECORDS SUMMARY | 2023-12-30 16:23 | External Medical Summary ---
Author Name Unknown Address Unknown Organization K01:LAB[place]ATORY [facility] [place] [address] [place] [address] Laboratory Report Ordering Provider Test Date Status URIEL ARMSTRONG 12/11/2023 17:40:39 Final Observation Date Value Abnormality Reference (Units ) Status Color of Urine by Auto 12/11/2023 17:40:39 Light Yellow Colorless, Light Yellow, Yellow, Dark Yellow Final Clarity, Urine 12/11/2023 17:40:39 Slightly Cloudy Abnormal Clear Final Glucose [Mass/volume] in Urine by Automated test strip 12/11/2023 17:40:39 Negative Negative (mg/dL) Final Bilirubin.total [Presence] in Urine by Automated test strip 12/11/2023 17:40:39 Negative Negative Final Ketones [Mass/volume] in Urine by Automated test strip 12/11/2023 17:40:39 Negative Negative (mg/dL) Final Specific gravity, Urine 12/11/2023 17:40:39 1.022 1.003-1.030 Final Hemoglobin [Presence] in Urine by Automated test strip 12/11/2023 17:40:39 Moderate Abnormal Negative Final pH, Urine 12/11/2023 17:40:39 5.5 5.0-7.5 (Units) Final Protein [Mass/volume] in Urine by Automated test strip 12/11/2023 17:40:39 30 Abnormal Negative (mg/dL) Final Urobilinogen [Mass/volume] in Urine by Automated test strip 12/11/2023 17:40:39 Normal Normal (mg/dL) Final Nitrite [Presence] in Urine by Automated test strip 12/11/2023 17:40:39 Negative Negative Final Leukocyte esterase [Presence] in Urine by Automated test strip 12/11/2023 17:40:39 Trace Abnormal Negative Final RBC, Urine 12/11/2023 17:40:39 50+ Abnormal 0-2 (/HPF) Final WBC, Urine 12/11/2023 17:40:39 6-9 Abnormal 0-2 (/HPF) Final Bacteria [#/area] in Urine sediment by Microscopy high power field 12/11/2023 17:40:39 0-25 0-25 (/HPF) Final Urate crystals [#/area] in Urine sediment by Microscopy high power field 12/11/2023 17:40:39 30-49 Abnormal None (/HPF) Final CULTURE, URINE - [facility] 12/11/2023 17:40:39 Final Culture not indicated by uri nalysis results\X09\ Performing Location LABORATORY [facility] [place] - [facility] [address] [facility] [address]
--- OUTSIDE RECORDS SUMMARY | 2023-12-30 16:23 | External Medical Summary ---
Author Name Unknown Address Unknown Organization K01:[place] [facility] [place] [address] [place] [address] Laboratory Report Ordering Provider Test Date Status SAVAGEURIEL BACON 12/11/2023 12:36:00 Final Observation Date Value Abnormality Reference (Units ) Status Parathyrin.intact [Mass/volume] in Serum or Plasma 12/11/2023 12:36:00 38 15-65 (pg/mL) Final Performing Location [facility] [place] [address] [place] [address]
--- OUTSIDE RECORDS SUMMARY | 2023-12-30 16:23 | External Medical Summary ---
Author Name Unknown Address Unknown Organization K01:[place] [facility] [place] [address] [place] [address] Laboratory Report Ordering Provider Test Date Status URIEL ARMSTRONG 12/11/2023 12:36:00 Final Observation Date Value Abnormality Reference (Units ) Status TSH 12/11/2023 12:36:00 4.93 Above high normal 0. 27-4.20 (uIU/mL) Final Performing Location LABORATORY [facility] - [address] [place] [address]
--- OUTSIDE RECORDS SUMMARY | 2023-12-30 16:23 | External Medical Summary ---
Author Name Unknown Address Unknown Organization K01:LABORATORY [facility] - [address] [place] [address] Laboratory Report Ordering Provider Test Date Status SHEKHAR ARMSTRONGCamrelo 12/12/2023 07:28:00 Final Observation Date Value Abnormality Reference (Units ) Status Phosphate 12/12/2023 07:28:00 2.6 2.5-4.8 (m g/dL) Final Performing Location LABORATORY [facility] - [address] [place] [address]
--- OUTSIDE RECORDS SUMMARY | 2023-12-30 16:23 | External Medical Summary ---
Author Name Unknown Address Unknown Organization : Laboratory Report Ordering Provider Test Date Status URIEL ARMSTRONG 12/12/2023 17:42:04 Final Observation Date Value Abnormality Reference (Units ) Status Glucose Point of Care 12/12/2023 17:42:04 135 Above high normal 70-120 (mg/dL) Final Performing Location
--- OUTSIDE RECORDS SUMMARY | 2023-12-30 16:23 | External Medical Summary ---
Author Name Unknown Address Unknown Organization : Laboratory Report Ordering Provider Test Date Status URIEL ARMSTRONG 12/12/2023 23:40:20 Final Observation Date Value Abnormality Reference (Units ) Status Glucose Point of Care 12/12/2023 23:40:20 139 Above high normal 70-120 (mg/dL) Final Performing Location
--- OUTSIDE RECORDS SUMMARY | 2023-12-30 16:23 | External Medical Summary ---
Author Name Unknown Address Unknown Organization K01:[place] [facility] [place] [address] [place] [address] Laboratory Report Ordering Provider Test Date Status URIEL ARMSTRONG 12/12/2023 07:28:00 Final Observation Date Value Abnormality Reference (Units ) Status BUN 12/12/2023 07:28:00 23 Above high normal 6-20 (mg/dL) Final Creatinine 12/12/2023 07:28:00 0.9 0.6-1.2 (mg/dL) Final Glomerular filtration rate/1.73 sq M.predicted [Volume Rate/Area] in Serum, Plasma or Blood by Creatinine-based formula (CKD-EPI) 12/12/2023 07:28:00 82 >=60 (mL/min) Final eGFR is calculated based on the CKD-EPI 2020 equation SODIUM 12/12/2023 07:28:00 140 135-146 (m mol/L) Final Potassium 12/12/2023 07:28:00 3.6 3.5-5.1 (m mol/L) Final Cl 12/12/2023 07:28:00 104 98-107 (mm ol/L) Final CO2 12/12/2023 07:28:00 23 22-32 (mmo l/L) Final Anion gap 12/12/2023 07:28:00 13 7-15 (mmol /L) Final Glucose 12/12/2023 07:28:00 141 Above high normal 70 -120 (mg/dL) Final Calcium 12/12/2023 07:28:00 8.6 8.4-10.2 ( mg/dL) Final Performing Location [place] [facility] [place] [address] [place] [address]
--- OUTSIDE RECORDS SUMMARY | 2023-12-30 16:23 | External Medical Summary ---
Author Name Unknown Address Unknown Organization : Laboratory Report Ordering Provider Test Date Status KARLA MEADE 12/15/2023 12:01:28 Final Observation Date Value Abnormality Reference (Units ) Status Glucose Point of Care 12/15/2023 12:01:28 138 Above high normal 70-120 (mg/dL) Final Performing Location
--- OUTSIDE RECORDS SUMMARY | 2023-12-30 16:23 | External Medical Summary ---
Author Name Unknown Address Unknown Organization : Laboratory Report Ordering Provider Test Date Status URIEL ARMSTRONG 12/09/2023 10:34:00 Final Observation Date Value Abnormality Reference (Units ) Status Pyridoxal phosphate [Mass/volume] in Serum or Plasma 12/09/2023 10:34:00 3.7 2.1-21.7 (ng/mL) Final Vitamin supplementation with in 24 hours prior to
blood draw may affect the accuracy of the results.
This test was developed and its analytical performance
characteristics have been determined by [facility] [place], [place]. It has
not been cleared or approved by the U.S. Food and Drug
Administration. This assay has been validated pursuant
to the CLIA regulations and is used for clinical
purposes.

Test Performed at:
[email or web address] [place]
[address] [place] [address]
Rey Tripathi M.D., Ph.D.,Director of Laboratories Performing Location
--- OUTSIDE RECORDS SUMMARY | 2023-12-30 16:23 | External Medical Summary ---
Author Name Unknown Address Unknown Organization : Laboratory Report Ordering Provider Test Date Status URIEL ARMSTRONG 12/09/2023 10:34:00 Final Observation Date Value Abnormality Reference (Units ) Status NICOTINIC ACID 12/09/2023 10:34:00 <20 (ng/m L) Final Due to the large variability in the metabolism of
nicotinic acid, the dosing preparation used
(immediate-release vs. extended release), and the mg
doses used, the serum concentrations may range from
less than 20 ng/mL to about 30,000 ng/mL. After oral
administration of an immediate-release tablet, peak
plasma concentrations occur in 4 to 5 hours. The
plasma half-life of nicotinic acid is about one
hour. In one study, fasting plasma concentrations
were reported to be less than 20 ng/mL. In another
study, it was reported that the administration of a
single 1000 mg extended-release tablet resulted in
mean nicotinic acid concentrations of less than
50 ng/mL.
This test was developed and its analytical performance
characteristics have been determined by [facility]
[employer]. It has not been cleared or approved by the
FDA. This assay has been validated pursuant to the CLIA
regulations and is used for clinical purposes. NICOTINAMIDE 12/09/2023 10:34:00 22 (ng/mL) Final Nicotinamide is a metabolite of nicotinic acid. Due
to the large variability in the metabolism of
nicotinic acid, plasma concentrations of this
metabolite are variable. In one study, fasting plasma
concentrations were reported to be approximately
40 ng/mL. In another study it was reported that the
administration of a single 1000 mg of extended-
release tablet of nicotinic acid resulted in a mean
peak nicotinamide concentration of 400 ng/mL between
5 and 10 hours post dose, decreasing to about
100 ng/mL by 16 hours post dose.
This test was developed and its analytical performance
characteristics have been determined by [facility]. It has not been cleared or approved by the
FDA. This assay has been validated pursuant to the CLIA
regulations and is used for clinical purposes.
Test performed by:
[facility]
[address]
[place] [address]

[phone]
Production Administrative Assistant: Joaquim Arango M.D.
Test Reported by [facility],
[facility],
[address] [place], [place]
Rey Tripathi M.D., Ph.D., Director of Laboratories
[phone], CLIA [id number] Performing Location
--- OUTSIDE RECORDS SUMMARY | 2023-12-30 16:23 | External Medical Summary ---
Author Name Unknown Address Unknown Organization : Laboratory Report Ordering Provider Test Date Status URIEL ARMSTRONG 12/09/2023 10:34:00 Final Observation Date Value Abnormality Reference (Units ) Status Vitamin K-1, level 12/09/2023 10:34:00 386 1 30-1500 (pg/mL) Final This test was developed and its analytical performance
characteristics have been determined by [facility]
[employer] [place], [place]. It has
not been cleared or approved by the U.S. Food and Drug
Administration. This assay has been validated pursuant
to the CLIA regulations and is used for clinical
purposes.

Test Performed at:
[facility] [place]
[address] [place] [address]
Rey Tripathi M.D., Ph.D.,Director of Laboratories Performing Location
--- OUTSIDE RECORDS SUMMARY | 2023-12-30 16:23 | External Medical Summary ---
Author Name Unknown Address Unknown Organization : Laboratory Report Ordering Provider Test Date Status KARLA MEADE 12/13/2023 16:57:29 Final Observation Date Value Abnormality Reference (Units ) Status Glucose Point of Care 12/13/2023 16:57:29 133 Above high normal 70-120 (mg/dL) Final Performing Location
--- OUTSIDE RECORDS SUMMARY | 2023-12-30 16:23 | External Medical Summary ---
Author Name Unknown Address Unknown Organization : Laboratory Report Ordering Provider Test Date Status URIEL ARMSTRONG 12/09/2023 08:16:00 Final Observation Date Value Abnormality Reference (Units ) Status Vitamin E, level 12/09/2023 08:16:00 15.6 5.7 -19.9 (mg/L) Final Levels of alpha-tocopherol < 5 mg/L are consistent
with Vitamin E deficiency in adults. Beta+gamma tocopherol [Mass/ volume] in Serum or Plasma 12/09/2023 08:16:00 <1.0 <=4.3 (mg/L) Final Vitamin supplementation with in 24 hours prior to
blood draw may affect the accuracy of the results.
This test was developed and its analytical performance
characteristics have been determined by [facility] [place], [place]. It has
not been cleared or approved by the U.S. Food and Drug
Administration. This assay has been validated pursuant
to the CLIA regulations and is used for clinical
purposes.

Test Performed at:
[facility]
[address] [facility]
[place] [address]
Rey Tripathi M.D., Ph.D.,Director of Laboratories Performing Location
--- OUTSIDE RECORDS SUMMARY | 2023-12-30 16:23 | External Medical Summary ---
Author Name Unknown Address Unknown Organization : Laboratory Report Ordering Provider Test Date Status URIEL ARMSTRONG 12/08/2023 18:11:39 Final Observation Date Value Abnormality Reference (Units ) Status Glucose Point of Care 12/08/2023 18:11:39 122 Above high normal 70-120 (mg/dL) Final Performing Location
--- OUTSIDE RECORDS SUMMARY | 2023-12-30 16:23 | External Medical Summary ---
Author Name Unknown Address Unknown Organization : Laboratory Report Ordering Provider Test Date Status URIEL ARMSTRONG 12/12/2023 05:22:18 Final Observation Date Value Abnormality Reference (Units ) Status Glucose Point of Care 12/12/2023 05:22:18 136 Above high normal 70-120 (mg/dL) Final Performing Location
--- OUTSIDE RECORDS SUMMARY | 2023-12-30 16:23 | External Medical Summary ---
Author Name Unknown Address Unknown Organization : Laboratory Report Ordering Provider Test Date Status URIEL ARMSTRONG 12/09/2023 08:16:00 Final Observation Date Value Abnormality Reference (Units ) Status Biotin [Mass/volume] in Serum or Plasma 12/09/2023 08:16:00 SEE BELOW Final 2178.7 221.0-3004.0 pg/mL
Reference Range:
Pediatric < 12 yrs: 100.0 - 2460.2 pg/mL
Adult > or = 12 yrs: 221.0 - 3004.0 pg/mL
The performance characteristics of the listed
assay was validated by [facility].
The [place] FDA has not approved or cleared this test.
The results of this assay can be used for
clinical diagnosis without FDA approval.
[facility] is a CLIA certified,
CAP accredited laboratory for performing high
complexity assays such as this one.
Test performed by:
[facility]
[address] [place] [address]

Wrapper And Preserver: Mey Bryson, PhD, HCLD(ABB) Performing Location
--- OUTSIDE RECORDS SUMMARY | 2023-12-30 16:23 | External Medical Summary ---
Author Name Unknown Address Unknown Organization K01:LABORATORY [facility] - [address] [place] [address] Laboratory Report Ordering Provider Test Date Status SAVAGEURIEL BACON 12/11/2023 12:36:00 Final Observation Date Value Abnormality Reference (Units ) Status Ammonia 12/11/2023 12:36:00 25 11-35 (umo l/L) Final Performing Location [facility] - [address] [place] [address]
--- OUTSIDE RECORDS SUMMARY | 2023-12-30 16:23 | External Medical Summary ---
Author Name Unknown Address Unknown Organization : Laboratory Report Ordering Provider Test Date Status URIEL ARMSTRONG 12/11/2023 12:36:00 Final Observation Date Value Abnormality Reference (Units ) Status Reagin Ab [Presence] in Serum by VDRL 12/11/2023 12:36:00 Nonreactive Final Reference range: NONREACTIVE
The VDRL is a hlg-achbkgater-xjszzqtg test; therefore,
a treponemal-specific confirmatory test should be
performed unless prior syphilis infection has been
documented for this patient.

Test Performed at:
[facility]
[address] [facility]
[place] [address]
Rey Tripathi M.D., Ph.D.,Director of Laboratories Performing Location
--- OUTSIDE RECORDS SUMMARY | 2023-12-30 16:23 | External Medical Summary ---
Author Name Unknown Address Unknown Organization K01:LABORATORY [facility] [place] - [address] [place] [place] [address] Laboratory Report Ordering Provider Test Date Status URIEL ARMSTRONG 12/09/2023 09:53:36 Final Observation Date Value Abnormality Reference (Units ) Status Herpes simplex virus 1+2 DNA [Presence] in Specimen by BHAVANA with probe detection 12/09/2023 09:53:36 Negative Negative Final No Herpes Simplex Virus Type 1 detected by PCR (amplified probe). Herpes simplex virus 1+2 DNA [Presence] in Specimen by BHAVANA with probe detection 12/09/2023 09:53:36 Negative Negative Final No Herpes Simplex Virus Type 2 detected by PCR (amplified probe). Performing Location LABORATORY [facility] - [address] [place] [address]
--- OUTSIDE RECORDS SUMMARY | 2023-12-30 16:23 | External Medical Summary ---
Author Name Unknown Address Unknown Organization K01:LAB[facility]ATORY [facility] [place] [address] [place] [address] Laboratory Report Ordering Provider Test Date Status PHILSALLY 12/12/2023 07:28:00 Final Observation Date Value Abnormality Reference (Units ) Status WBC, Total 12/12/2023 07:28:00 6.87 4.00-10.80 (K/uL) Final RBC 12/12/2023 07:28:00 3.95 4.50-5.25 (M/uL) Final Hemoglobin 12/12/2023 07:28:00 11.5 Below low normal 14.0-16.8 (g/dL) Final HCT 12/12/2023 07:28:00 37.0 Below low normal 40.0-48.4 (%) Final MCV 12/12/2023 07:28:00 93.7 82.0-99.5 (fL) Final MCH 12/12/2023 07:28:00 29.1 27.0-34.0 (pg) Final MCHC 12/12/2023 07:28:00 31.1 32.0-36.0 (g/dL) Final RDW 12/12/2023 07:28:00 14.8 11.5-15.5 (%) Final Platelets 12/12/2023 07:28:00 317 140-400 (K/uL) Final MPV 12/12/2023 07:28:00 11.6 6.6-11.1 (fL) Final Nucleated erythrocytes/100 leukocytes [Ratio] in Blood by Automated count 12/12/2023 07:28:00 0 <=0 (/100 WBCs) Final Performing Location LABORATORY [facility] [place] [address] [place] [address]
--- OUTSIDE RECORDS SUMMARY | 2023-12-30 16:23 | External Medical Summary ---
Author Name Unknown Address Unknown Organization K01:LABORATORY [facility] - [address] [place] [address] Laboratory Report Ordering Provider Test Date Status KARLA MEADE 12/16/2023 06:29:00 Final Observation Date Value Abnormality Reference (Units ) Status WBC, Total 12/16/2023 06:29:00 9.77 4.00-10.80 (K/uL) Final RBC 12/16/2023 06:29:00 3.84 4.50-5.25 (M/uL) Final Hemoglobin 12/16/2023 06:29:00 11.1 Below low normal 14.0-16.8 (g/dL) Final HCT 12/16/2023 06:29:00 35.9 Below low normal 40.0-48.4 (%) Final MCV 12/16/2023 06:29:00 93.5 82.0-99.5 (fL) Final MCH 12/16/2023 06:29:00 28.9 27.0-34.0 (pg) Final MCHC 12/16/2023 06:29:00 30.9 32.0-36.0 (g/dL) Final RDW 12/16/2023 06:29:00 14.6 11.5-15.5 (%) Final Platelets 12/16/2023 06:29:00 338 140-400 (K/uL) Final MPV 12/16/2023 06:29:00 11.4 6.6-11.1 (fL) Final Nucleated erythrocytes/100 leukocytes [Ratio] in Blood by Automated count 12/16/2023 06:29:00 0 <=0 (/100 WBCs) Final Performing Location LABORATORY [facility] - [address] [place] [address]
--- OUTSIDE RECORDS SUMMARY | 2023-12-30 16:23 | External Medical Summary ---
Author Name Unknown Address Unknown Organization : Laboratory Report Ordering Provider Test Date Status URIEL ARMSTRONG 12/09/2023 06:01:32 Final Observation Date Value Abnormality Reference (Units ) Status Glucose Point of Care 12/09/2023 06:01:32 123 Above high normal 70-120 (mg/dL) Final Performing Location
--- OUTSIDE RECORDS SUMMARY | 2023-12-30 16:23 | External Medical Summary ---
Author Name Unknown Address Unknown Organization : Laboratory Report Ordering Provider Test Date Status URIEL ARMSTRONG 12/11/2023 23:53:32 Final Observation Date Value Abnormality Reference (Units ) Status Glucose Point of Care 12/11/2023 23:53:32 124 Above high normal 70-120 (mg/dL) Final Performing Location
--- OUTSIDE RECORDS SUMMARY | 2023-12-30 16:23 | External Medical Summary ---
Author Name Unknown Address Unknown Organization : Laboratory Report Ordering Provider Test Date Status KARLA MEADE 12/15/2023 06:08:48 Final Observation Date Value Abnormality Reference (Units ) Status Glucose Point of Care 12/15/2023 06:08:48 128 Above high normal 70-120 (mg/dL) Final Performing Location
--- OUTSIDE RECORDS SUMMARY | 2023-12-30 16:23 | External Medical Summary ---
Author Name Unknown Address Unknown Organization : Laboratory Report Ordering Provider Test Date Status URIEL ARMSTRONG 12/12/2023 11:47:33 Final Observation Date Value Abnormality Reference (Units ) Status Glucose Point of Care 12/12/2023 11:47:33 137 Above high normal 70-120 (mg/dL) Final Performing Location
--- OUTSIDE RECORDS SUMMARY | 2023-12-30 16:23 | External Medical Summary ---
Author Name Unknown Address Unknown Organization : Laboratory Report Ordering Provider Test Date Status URIEL ARMSTRONG 12/08/2023 12:14:05 Final Observation Date Value Abnormality Reference (Units ) Status Glucose Point of Care 12/08/2023 12:14:05 139 Above high normal 70-120 (mg/dL) Final Performing Location
--- OUTSIDE RECORDS SUMMARY | 2023-12-30 16:23 | External Medical Summary ---
Author Name Unknown Address Unknown Organization K01:LABORATORY [facility] [place] - [address] [place] [address] Laboratory Report Ordering Provider Test Date Status KARLA MEADE 12/16/2023 06:29:00 Final Observation Date Value Abnormality Reference (Units ) Status BUN 12/16/2023 06:29:00 19 6-20 (mg/dL) Final Creatinine 12/16/2023 06:29:00 1.0 0.6-1.2 (mg/dL) Final Glomerular filtration rate/1.73 sq M.predicted [Volume Rate/Area] in Serum, Plasma or Blood by Creatinine-based formula (CKD-EPI) 12/16/2023 06:29:00 77 >=60 (mL/min) Final eGFR is calculated based on the CKD-EPI 2020 equation SODIUM 12/16/2023 06:29:00 144 135-146 (m mol/L) Final Potassium 12/16/2023 06:29:00 3.2 Below low normal 3.5 -5.1 (mmol/L) Final Cl 12/16/2023 06:29:00 106 98-107 (mm ol/L) Final CO2 12/16/2023 06:29:00 26 22-32 (mmo l/L) Final Anion gap 12/16/2023 06:29:00 12 7-15 (mmol /L) Final Glucose 12/16/2023 06:29:00 138 Above high normal 70 -120 (mg/dL) Final Calcium 12/16/2023 06:29:00 8.4 8.4-10.2 ( mg/dL) Final Performing Location LABORATORY [facility] [place] - [address] [place] [address]
--- OUTSIDE RECORDS SUMMARY | 2023-12-30 16:23 | External Medical Summary ---
Author Name Unknown Address Unknown Organization : Laboratory Report Ordering Provider Test Date Status URIEL ARMSTRONG 12/10/2023 11:42:37 Final Observation Date Value Abnormality Reference (Units ) Status Glucose Point of Care 12/10/2023 11:42:37 157 Above high normal 70-120 (mg/dL) Final Performing Location
--- OUTSIDE RECORDS SUMMARY | 2023-12-30 16:23 | External Medical Summary ---
Author Name Unknown Address Unknown Organization K01:LABORATORY [facility] [place] - [address] [place] [address] Laboratory Report Ordering Provider Test Date Status URIEL ARMSTRONG 12/13/2023 07:57:00 Final Observation Date Value Abnormality Reference (Units ) Status WBC, Total 12/13/2023 07:57:00 9.92 4.00-10.80 (K/uL) Final RBC 12/13/2023 07:57:00 4.16 4.50-5.25 (M/uL) Final Hemoglobin 12/13/2023 07:57:00 12.1 Below low normal 14.0-16.8 (g/dL) Final HCT 12/13/2023 07:57:00 39.0 Below low normal 40.0-48.4 (%) Final MCV 12/13/2023 07:57:00 93.8 82.0-99.5 (fL) Final MCH 12/13/2023 07:57:00 29.1 27.0-34.0 (pg) Final MCHC 12/13/2023 07:57:00 31.0 32.0-36.0 (g/dL) Final RDW 12/13/2023 07:57:00 14.9 11.5-15.5 (%) Final Platelets 12/13/2023 07:57:00 321 140-400 (K/uL) Final MPV 12/13/2023 07:57:00 11.6 6.6-11.1 (fL) Final Nucleated erythrocytes/100 leukocytes [Ratio] in Blood by Automated count 12/13/2023 07:57:00 0 <=0 (/100 WBCs) Final Performing Location LABORATORY [facility] [place] - [address] [place] [address]
--- OUTSIDE RECORDS SUMMARY | 2023-12-30 16:23 | External Medical Summary ---
Author Name Unknown Address Unknown Organization K01:LABORATORY [facility] [place] - [address] [place] [address] Laboratory Report Ordering Provider Test Date Status PHILSALLY 12/10/2023 06:25:00 Final Observation Date Value Abnormality Reference (Units ) Status WBC, Total 12/10/2023 06:25:00 7.89 4.00-10.80 (K/uL) Final RBC 12/10/2023 06:25:00 3.74 4.50-5.25 (M/uL) Final Hemoglobin 12/10/2023 06:25:00 11.0 Below low normal 14.0-16.8 (g/dL) Final HCT 12/10/2023 06:25:00 35.2 Below low normal 40.0-48.4 (%) Final MCV 12/10/2023 06:25:00 94.1 82.0-99.5 (fL) Final MCH 12/10/2023 06:25:00 29.4 27.0-34.0 (pg) Final MCHC 12/10/2023 06:25:00 31.3 32.0-36.0 (g/dL) Final RDW 12/10/2023 06:25:00 15.2 11.5-15.5 (%) Final Platelets 12/10/2023 06:25:00 262 140-400 (K/uL) Final MPV 12/10/2023 06:25:00 12.0 6.6-11.1 (fL) Final Nucleated erythrocytes/100 leukocytes [Ratio] in Blood by Automated count 12/10/2023 06:25:00 0 <=0 (/100 WBCs) Final Performing Location LABORATORY [facility] [place] - [address] [place] [address]
--- OUTSIDE RECORDS SUMMARY | 2023-12-30 16:23 | External Medical Summary ---
Author Name Unknown Address Unknown Organization : Laboratory Report Ordering Provider Test Date Status URIEL ARMSTRONG 12/11/2023 12:15:01 Final Observation Date Value Abnormality Reference (Units ) Status Glucose Point of Care 12/11/2023 12:15:01 158 Above high normal 70-120 (mg/dL) Final Performing Location
--- OUTSIDE RECORDS SUMMARY | 2023-12-30 16:23 | External Medical Summary ---
Author Name Unknown Address Unknown Organization K01:LABORATORY [facility] - [address] [place] [address] Laboratory Report Ordering Provider Test Date Status URIEL ARMSTRONG 12/11/2023 12:36:00 Final Observation Date Value Abnormality Reference (Units ) Status GGT 12/11/2023 12:36:00 8 <=60 (U/L) Final Performing Location LABORATORY [facility] - [address] [place] [address]
--- OUTSIDE RECORDS SUMMARY | 2023-12-30 16:23 | External Medical Summary ---
Author Name Unknown Address Unknown Organization : Laboratory Report Ordering Provider Test Date Status URIEL ARMSTRONG 12/09/2023 10:34:00 Final Observation Date Value Abnormality Reference (Units ) Status Riboflavin [Moles/volume] in Serum or Plasma 12/09/2023 10:34:00 18.6 6.2-39.0 (nmol/L) Final Vitamin supplementation with in 24 hours prior to
blood draw may affect the accuracy of results.
This test was developed and its analytical performance
characteristics have been determined by [facility] [employer]. It has not been cleared or approved by the
FDA. This assay has been validated pursuant to the CLIA
regulations and is used for clinical purposes.
Test performed by:
[facility]
[address]
[place] [address]

[phone]
Software Engineering Specialist: Joaquim Arango M.D.
Test Reported by [facility],
[facility],
[address] [place], [place]
Rey Tripathi M.D., Ph.D., Director of Laboratories
, CLIA [id number] Performing Location
--- OUTSIDE RECORDS SUMMARY | 2023-12-30 16:23 | External Medical Summary ---
Author Name Unknown Address Unknown Organization K01:LABORATORY [facility] [place] - [address] [place] [address] Laboratory Report Ordering Provider Test Date Status PHILSALLY 12/09/2023 06:30:00 Final Observation Date Value Abnormality Reference (Units ) Status WBC, Total 12/09/2023 06:30:00 8.76 4.00-10.80 (K/uL) Final RBC 12/09/2023 06:30:00 3.91 4.50-5.25 (M/uL) Final Hemoglobin 12/09/2023 06:30:00 11.4 Below low normal 14.0-16.8 (g/dL) Final HCT 12/09/2023 06:30:00 36.5 Below low normal 40.0-48.4 (%) Final MCV 12/09/2023 06:30:00 93.4 82.0-99.5 (fL) Final MCH 12/09/2023 06:30:00 29.2 27.0-34.0 (pg) Final MCHC 12/09/2023 06:30:00 31.2 32.0-36.0 (g/dL) Final RDW 12/09/2023 06:30:00 15.3 11.5-15.5 (%) Final Platelets 12/09/2023 06:30:00 253 140-400 (K/uL) Final MPV 12/09/2023 06:30:00 12.2 6.6-11.1 (fL) Final Nucleated erythrocytes/100 leukocytes [Ratio] in Blood by Automated count 12/09/2023 06:30:00 0 <=0 (/100 WBCs) Final Performing Location LABORATORY [facility] [place] - [address] [place] [address]
--- OUTSIDE RECORDS SUMMARY | 2023-12-30 16:23 | External Medical Summary ---
Author Name Unknown Address Unknown Organization : Laboratory Report Ordering Provider Test Date Status URIEL ARMSTRONG 12/09/2023 10:34:00 Final Observation Date Value Abnormality Reference (Units ) Status Thiamine [Moles/volume] in Blood 12/09/2023 10:34:00 >1200 Above high normal 78-185 (nmol/L) Final Vitamin supplementation with in 24 hours prior to
blood draw may affect the accuracy of the results.
This test was developed and its analytical performance
characteristics have been determined by [facility] [place], [place]. It has
not been cleared or approved by the U.S. Food and Drug
Administration. This assay has been validated pursuant
to the CLIA regulations and is used for clinical
purposes.

Test Performed at:
[facility]
[address]
[place], [place]
Rey Tripathi M.D., Ph.D.,Director of Laboratories Performing Location
--- OUTSIDE RECORDS SUMMARY | 2023-12-30 16:23 | External Medical Summary ---
Author Name Unknown Address Unknown Organization K01:LAB[facility]ATORY [facility] [place] [address] [place] [address] Laboratory Report Ordering Provider Test Date Status URIEL ARMSTRONG 12/12/2023 07:28:00 Final Observation Date Value Abnormality Reference (Units ) Status Cortisol 12/12/2023 07:28:00 15.1 2.5-19.5 ( ug/dL) Final AM Reference Range: 4.8 - 19 .5 ug/dL
PM Reference Range: 2.5 - 11.9 ug/dL Performing Location LABORATORY [facility] - [address] [place] [address]
--- OUTSIDE RECORDS SUMMARY | 2023-12-30 16:23 | External Medical Summary ---
Author Name Unknown Address Unknown Organization : Laboratory Report Ordering Provider Test Date Status URIEL ARMSTRONG 12/09/2023 08:16:00 Final Observation Date Value Abnormality Reference (Units ) Status VITAMIN C 12/09/2023 08:16:00 1.0 0.2-2.1 (m g/dL) Final This test was developed and its analytical performance
characteristics have been determined by [facility]. It has not been cleared or approved by the
FDA. This assay has been validated pursuant to the CLIA
regulations and is used for clinical purposes.
Test performed by:
[facility]
[address] [place] [address]

[phone]
Accounts Officer: Joaquim Arango M.D.
Test Reported by [facility],
[facility],
[address] [place], [place]
Rey Tripathi M.D., Ph.D., Director of Laboratories
, CLIA [id number] Performing Location
--- OUTSIDE RECORDS SUMMARY | 2023-12-30 16:23 | External Medical Summary ---
Author Name Unknown Address Unknown Organization K01:LABORATORY [facility] - [address] [place] [address] Laboratory Report Ordering Provider Test Date Status SHEKHAR ARMSTRONGCarmelo 12/13/2023 07:57:00 Final Observation Date Value Abnormality Reference (Units ) Status Magnesium 12/13/2023 07:57:00 2.1 1.5-2.6 (m g/dL) Final Performing Location LAB[facility]ATORY [facility] - [address] [place] [address]
--- OUTSIDE RECORDS SUMMARY | 2023-12-30 16:23 | External Medical Summary ---
Author Name Unknown Address Unknown Organization : Laboratory Report Ordering Provider Test Date Status KARLA MEADE 12/14/2023 05:52:17 Final Observation Date Value Abnormality Reference (Units ) Status Glucose Point of Care 12/14/2023 05:52:17 128 Above high normal 70-120 (mg/dL) Final Performing Location
--- OUTSIDE RECORDS SUMMARY | 2023-12-30 16:23 | External Medical Summary ---
Author Name Unknown Address Unknown Organization K01:LABORATORY [facility] - [address] [place] [address] Laboratory Report Ordering Provider Test Date Status URIEL ARMSTRONG 12/08/2023 09:57:00 Final Observation Date Value Abnormality Reference (Units ) Status Lactic Acid 12/08/2023 09:57:00 0.8 0.4-2.0 (mmol/L) Final Performing Location LABORATORY [facility] - [address] [place] [address]
--- OUTSIDE RECORDS SUMMARY | 2023-12-30 16:23 | External Medical Summary ---
Author Name Unknown Address Unknown Organization : Laboratory Report Ordering Provider Test Date Status KARLA MEADE 12/16/2023 12:05:30 Final Observation Date Value Abnormality Reference (Units ) Status Glucose Point of Care 12/16/2023 12:05:30 124 Above high normal 70-120 (mg/dL) Final Performing Location
--- OUTSIDE RECORDS SUMMARY | 2023-12-30 16:23 | External Medical Summary ---
Author Name Unknown Address Unknown Organization : Laboratory Report Ordering Provider Test Date Status URIEL ARMSTRONG 12/09/2023 17:39:32 Final Observation Date Value Abnormality Reference (Units ) Status Glucose Point of Care 12/09/2023 17:39:32 139 Above high normal 70-120 (mg/dL) Final Performing Location
--- OUTSIDE RECORDS SUMMARY | 2023-12-30 16:23 | External Medical Summary ---
Author Name Unknown Address Unknown Organization : Laboratory Report Ordering Provider Test Date Status KARLA MEADE 12/13/2023 23:55:58 Final Observation Date Value Abnormality Reference (Units ) Status Glucose Point of Care 12/13/2023 23:55:58 123 Above high normal 70-120 (mg/dL) Final Performing Location
--- OUTSIDE RECORDS SUMMARY | 2023-12-30 16:23 | External Medical Summary ---
Author Name Unknown Address Unknown Organization : Laboratory Report Ordering Provider Test Date Status KARLA MEADE 12/15/2023 17:33:57 Final Observation Date Value Abnormality Reference (Units ) Status Glucose Point of Care 12/15/2023 17:33:57 142 Above high normal 70-120 (mg/dL) Final Performing Location
--- OUTSIDE RECORDS SUMMARY | 2023-12-30 16:23 | External Medical Summary ---
Author Name Unknown Address Unknown Organization : Laboratory Report Ordering Provider Test Date Status KARLA MEADE 12/14/2023 11:42:49 Final Observation Date Value Abnormality Reference (Units ) Status Glucose Point of Care 12/14/2023 11:42:49 155 Above high normal 70-120 (mg/dL) Final Performing Location
--- OUTSIDE RECORDS SUMMARY | 2023-12-30 16:23 | External Medical Summary ---
Author Name Unknown Address Unknown Organization K01:LABORATORY [facility] [place] - [address] [place] [address] Laboratory Report Ordering Provider Test Date Status ME PHILHR 12/11/2023 07:24:00 Final Observation Date Value Abnormality Reference (Units ) Status WBC, Total 12/11/2023 07:24:00 8.60 4.00-10.80 (K/uL) Final RBC 12/11/2023 07:24:00 4.08 4.50-5.25 (M/uL) Final Hemoglobin 12/11/2023 07:24:00 12.0 Below low normal 14.0-16.8 (g/dL) Final HCT 12/11/2023 07:24:00 36.7 Below low normal 40.0-48.4 (%) Final MCV 12/11/2023 07:24:00 90.0 82.0-99.5 (fL) Final MCH 12/11/2023 07:24:00 29.4 27.0-34.0 (pg) Final MCHC 12/11/2023 07:24:00 32.7 32.0-36.0 (g/dL) Final RDW 12/11/2023 07:24:00 14.9 11.5-15.5 (%) Final Platelets 12/11/2023 07:24:00 258 140-400 (K/uL) Final MPV 12/11/2023 07:24:00 12.0 6.6-11.1 (fL) Final Nucleated erythrocytes/100 leukocytes [Ratio] in Blood by Automated count 12/11/2023 07:24:00 0 <=0 (/100 WBCs) Final Performing Location LABORATORY [facility] [place] - [address] [place] [address]
--- OUTSIDE RECORDS SUMMARY | 2023-12-30 16:23 | External Medical Summary ---
Author Name Unknown Address Unknown Organization : Laboratory Report Ordering Provider Test Date Status URIEL ARMSTRONG 12/11/2023 18:21:59 Final Observation Date Value Abnormality Reference (Units ) Status Glucose Point of Care 12/11/2023 18:21:59 109 70-120 (mg/dL) Final Performing Location
--- OUTSIDE RECORDS SUMMARY | 2023-12-30 16:23 | External Medical Summary ---
Author Name Unknown Address Unknown Organization : Laboratory Report Ordering Provider Test Date Status KARLA MEADE 12/14/2023 17:49:39 Final Observation Date Value Abnormality Reference (Units ) Status Glucose Point of Care 12/14/2023 17:49:39 129 Above high normal 70-120 (mg/dL) Final Performing Location
--- OUTSIDE RECORDS SUMMARY | 2023-12-30 16:24 | External Medical Summary ---
Author Name Unknown Address Unknown Organization K01:LAB[facility]ATORY [facility] [place] - [address] [place] [address] Laboratory Report Ordering Provider Test Date Status SALLY VILLARREAL 12/06/2023 05:46:00 Final Observation Date Value Abnormality Reference (Units ) Status WBC, Total 12/06/2023 05:46:00 8.64 4.00-10.80 (K/uL) Final RBC 12/06/2023 05:46:00 3.81 4.50-5.25 (M/uL) Final Hemoglobin 12/06/2023 05:46:00 11.5 Below low normal 14.0-16.8 (g/dL) Final HCT 12/06/2023 05:46:00 36.6 Below low normal 40.0-48.4 (%) Final MCV 12/06/2023 05:46:00 96.1 82.0-99.5 (fL) Final MCH 12/06/2023 05:46:00 30.2 27.0-34.0 (pg) Final MCHC 12/06/2023 05:46:00 31.4 32.0-36.0 (g/dL) Final RDW 12/06/2023 05:46:00 15.7 11.5-15.5 (%) Final Platelets 12/06/2023 05:46:00 162 140-400 (K/uL) Final MPV 12/06/2023 05:46:00 12.4 6.6-11.1 (fL) Final Nucleated erythrocytes/100 leukocytes [Ratio] in Blood by Automated count 12/06/2023 05:46:00 0 <=0 (/100 WBCs) Final Performing Location LABORATORY C - [address] [place] [address]
--- OUTSIDE RECORDS SUMMARY | 2023-12-30 16:24 | External Medical Summary ---
Author Name Unknown Address Unknown Organization K01:LABORATORY [facility] - [address] [place] [address] Laboratory Report Ordering Provider Test Date Status SHEKHAR ARMSTRONGCarmelo 12/08/2023 09:57:00 Final Observation Date Value Abnormality Reference (Units ) Status Phosphate 12/08/2023 09:57:00 2.5 2.5-4.8 (m g/dL) Final Performing Location LAB[facility]ORY [facility] - [address] [place] [address]
--- OUTSIDE RECORDS SUMMARY | 2023-12-30 16:24 | External Medical Summary ---
Author Name Unknown Address Unknown Organization K01:LABORATORY [facility] [place] - [address] [address] Laboratory Report Ordering Provider Test Date Status MICHELLE TOMPKINS 12/03/2023 14:57:00 Final Observation Date Value Abnormality Reference (Units ) Status SYNC LEUKOCYTES IN BLOOD BY AUTOMATED COUNT 12/03/2023 14:57:00 7.57 4.00-10.80 (K/uL) Final Segs 12/03/2023 14:57:00 71.5 40.0-75.0 (%) Final Lymphs % 12/03/2023 14:57:00 13.5 Below low normal 18.0-42.0 (%) Final Monos 12/03/2023 14:57:00 13.1 Above high normal 1.0-11.0 (%) Final Eosinophils 12/03/2023 14:57:00 1.3 0.0-6.0 (%) Final Basos 12/03/2023 14:57:00 0.1 0.0-2.0 (%) Final Immature Granulocyte, Percent 12/03/2023 14:57:00 0.5 0.0-2.0 (%) Final Absolute Segs 12/03/2023 14:57:00 5.41 1.80-7.70 (K/uL) Final Lymphs, absolute 12/03/2023 14:57:00 1.02 1.00-4.80 (K/ul) Final Monos, Abs 12/03/2023 14:57:00 0.99 0.00-1.10 (K/uL) Final Eos, Abs 12/03/2023 14:57:00 0.10 0.00-0.70 (K/uL) Final Basos, Abs 12/03/2023 14:57:00 0.01 0.00-0.20 (K/uL) Final Immature Granulocytes, Number 12/03/2023 14:57:00 0.04 0.00-0.20 (K/uL) Final Performing Location LABORATORY [facility] [place] - [facility] [place] [address]
--- OUTSIDE RECORDS SUMMARY | 2023-12-30 16:24 | External Medical Summary ---
Author Name Unknown Address Unknown Organization K01:[place]ORY [facility] [place] [address] [place] [address] Laboratory Report Ordering Provider Test Date Status MICHELLE TOMPKINS 12/05/2023 07:00:00 Final Observation Date Value Abnormality Reference (Units ) Status WBC, Total 12/05/2023 07:00:00 7.20 4.00-10.80 (K/uL) Final RBC 12/05/2023 07:00:00 4.11 4.50-5.25 (M/uL) Final Hemoglobin 12/05/2023 07:00:00 12.0 Below low normal 14.0-16.8 (g/dL) Final HCT 12/05/2023 07:00:00 38.7 Below low normal 40.0-48.4 (%) Final MCV 12/05/2023 07:00:00 94.2 82.0-99.5 (fL) Final MCH 12/05/2023 07:00:00 29.2 27.0-34.0 (pg) Final MCHC 12/05/2023 07:00:00 31.0 32.0-36.0 (g/dL) Final RDW 12/05/2023 07:00:00 15.5 11.5-15.5 (%) Final Platelets 12/05/2023 07:00:00 161 140-400 (K/uL) Final MPV 12/05/2023 07:00:00 12.6 6.6-11.1 (fL) Final Nucleated erythrocytes/100 leukocytes [Ratio] in Blood by Automated count 12/05/2023 07:00:00 0 <=0 (/100 WBCs) Final Performing Location LAB[facility]ORY [facility] [place] [address] [place] [address]
--- OUTSIDE RECORDS SUMMARY | 2023-12-30 16:24 | External Medical Summary ---
Author Name Unknown Address Unknown Organization : Laboratory Report Ordering Provider Test Date Status URIEL ARMSTRONG 12/06/2023 17:30:56 Final Observation Date Value Abnormality Reference (Units ) Status Glucose Point of Care 12/06/2023 17:30:56 136 Above high normal 70-120 (mg/dL) Final Performing Location
--- OUTSIDE RECORDS SUMMARY | 2023-12-30 16:24 | External Medical Summary ---
Author Name Unknown Address Unknown Organization K01:LABORATORY [facility] [place] - [facility] [place] [address] [place] [address] Laboratory Report Ordering Provider Test Date Status MICHELLE TOMPKINS 12/03/2023 14:57:00 Final Observation Date Value Abnormality Reference (Units ) Status WBC, Total 12/03/2023 14:57:00 7.57 4.00-10.80 (K/uL) Final RBC 12/03/2023 14:57:00 4.17 4.50-5.25 (M/uL) Final Hemoglobin 12/03/2023 14:57:00 12.4 Below low normal 14.0-16.8 (g/dL) Final HCT 12/03/2023 14:57:00 39.6 Below low normal 40.0-48.4 (%) Final MCV 12/03/2023 14:57:00 95.0 82.0-99.5 (fL) Final MCH 12/03/2023 14:57:00 29.7 27.0-34.0 (pg) Final MCHC 12/03/2023 14:57:00 31.3 32.0-36.0 (g/dL) Final RDW 12/03/2023 14:57:00 15.3 11.5-15.5 (%) Final Platelets 12/03/2023 14:57:00 132 Below low normal 140-400 (K/uL) Final MPV 12/03/2023 14:57:00 11.9 6.6-11.1 (fL) Final Nucleated erythrocytes/100 leukocytes [Ratio] in Blood by Automated count 12/03/2023 14:57:00 0 <=0 (/100 WBCs) Final Performing Location LABORATORY [facility] [place] - [address] [place] [address]
--- OUTSIDE RECORDS SUMMARY | 2023-12-30 16:24 | External Medical Summary ---
Author Name Unknown Address Unknown Organization K01:LABORATORY [facility] - [address] [place] [address] Laboratory Report Ordering Provider Test Date Status MICHELLE TOMPKINS 12/04/2023 06:35:00 Final Observation Date Value Abnormality Reference (Units ) Status Magnesium 12/04/2023 06:35:00 1.9 1.5-2.6 (m g/dL) Final Performing Location LAB[facility]ORY [facility] - [address] [place] [address]
--- OUTSIDE RECORDS SUMMARY | 2023-12-30 16:24 | External Medical Summary ---
Author Name Unknown Address Unknown Organization K01:LABORATORY [facility] [place] - [address] [place] [address] Laboratory Report Ordering Provider Test Date Status JOSE ALBERTO ELAINE 12/03/2023 07:17:00 Final Less than 0.5 ng/mL: Low ris k for progression to sepsis. Review patients condition for localized infections.

0.5 to 2.0 ng/mL: Intermediate risk for progresion to sepsis. Review underlying conditions. Recommend repeat PCT after 6 hours has elapsed.

Greater than 2.0 ng/mL: high risk for progression to sepsis unless other causes are known. Observation Date Value Abnormality Reference (Units ) Status Procalcitonin [Mass/volume] in Serum or Plasma by Immunoassay 12/03/2023 07:17:00 0.11 Above high normal <0.10 (ng/mL) Final Performing Location LABORATORY [facility] [place] - [address] [place] [address]
--- OUTSIDE RECORDS SUMMARY | 2023-12-30 16:24 | External Medical Summary ---
Author Name Unknown Address Unknown Organization : Laboratory Report Ordering Provider Test Date Status URIEL ARMSTRONG 12/07/2023 05:31:30 Final Observation Date Value Abnormality Reference (Units ) Status Glucose Point of Care 12/07/2023 05:31:30 134 Above high normal 70-120 (mg/dL) Final Performing Location
--- OUTSIDE RECORDS SUMMARY | 2023-12-30 16:24 | External Medical Summary ---
Author Name Unknown Address Unknown Organization K01:[place] [place] [address] [place] [address] Laboratory Report Ordering Provider Test Date Status MICHELLE TOMPKINS 12/04/2023 06:35:00 Final Observation Date Value Abnormality Reference (Units ) Status WBC, Total 12/04/2023 06:35:00 8.57 4.00-10.80 (K/uL) Final RBC 12/04/2023 06:35:00 4.38 4.50-5.25 (M/uL) Final Hemoglobin 12/04/2023 06:35:00 13.1 Below low normal 14.0-16.8 (g/dL) Final HCT 12/04/2023 06:35:00 41.1 40.0-48.4 (%) Final MCV 12/04/2023 06:35:00 93.8 82.0-99.5 (fL) Final MCH 12/04/2023 06:35:00 29.9 27.0-34.0 (pg) Final MCHC 12/04/2023 06:35:00 31.9 32.0-36.0 (g/dL) Final RDW 12/04/2023 06:35:00 15.1 11.5-15.5 (%) Final Platelets 12/04/2023 06:35:00 158 140-400 (K/uL) Final MPV 12/04/2023 06:35:00 12.4 6.6-11.1 (fL) Final Nucleated erythrocytes/100 leukocytes [Ratio] in Blood by Automated count 12/04/2023 06:35:00 0 <=0 (/100 WBCs) Final Performing Location LABORATORY [facility] [place] [address] [place] [address]
--- OUTSIDE RECORDS SUMMARY | 2023-12-30 16:24 | External Medical Summary ---
Author Name Unknown Address Unknown Organization : Laboratory Report Ordering Provider Test Date Status URIEL ARMSTRONG 12/06/2023 23:17:26 Final Observation Date Value Abnormality Reference (Units ) Status Glucose Point of Care 12/06/2023 23:17:26 130 Above high normal 70-120 (mg/dL) Final Performing Location
--- OUTSIDE RECORDS SUMMARY | 2023-12-30 16:24 | External Medical Summary ---
Author Name Unknown Address Unknown Organization K01:LABORATORY [facility] - [address] [place] [address] Laboratory Report Ordering Provider Test Date Status MICHELLE TOMPKINS 12/04/2023 06:35:00 Final Observation Date Value Abnormality Reference (Units ) Status Phosphate 12/04/2023 06:35:00 2.2 Below low normal 2.5 -4.8 (mg/dL) Final Performing Location LAB[facility]ORY [facility] - [address] [place] [address]
--- OUTSIDE RECORDS SUMMARY | 2023-12-30 16:24 | External Medical Summary ---
Author Name Unknown Address Unknown Organization : Laboratory Report Ordering Provider Test Date Status RAO TAN 12/03/2023 12:13:42 Final Observation Date Value Abnormality Reference (Units ) Status Glucose Point of Care 12/03/2023 12:13:42 76 70-120 (mg/dL) Final Performing Location
--- OUTSIDE RECORDS SUMMARY | 2023-12-30 16:24 | External Medical Summary ---
Author Name Unknown Address Unknown Organization : Laboratory Report Ordering Provider Test Date Status SALLY VILLARREAL 12/05/2023 17:26:46 Final Observation Date Value Abnormality Reference (Units ) Status Glucose Point of Care 12/05/2023 17:26:46 121 Above high normal 70-120 (mg/dL) Final Performing Location
--- OUTSIDE RECORDS SUMMARY | 2023-12-30 16:24 | External Medical Summary ---
Author Name Unknown Address Unknown Organization K01:[place] [facility] [place] [facility] [address] [facility] [address] Laboratory Report Ordering Provider Test Date Status URIEL ARMSTRONG 12/08/2023 09:57:00 Final Observation Date Value Abnormality Reference (Units ) Status BUN 12/08/2023 09:57:00 30 Above high normal 6-20 (mg/dL) Final Creatinine 12/08/2023 09:57:00 0.9 0.6-1.2 (mg/dL) Final Glomerular filtration rate/1.73 sq M.predicted [Volume Rate/Area] in Serum, Plasma or Blood by Creatinine-based formula (CKD-EPI) 12/08/2023 09:57:00 82 >=60 (mL/min) Final eGFR is calculated based on the CKD-EPI 2020 equation SODIUM 12/08/2023 09:57:00 140 135-146 (m mol/L) Final Potassium 12/08/2023 09:57:00 3.8 3.5-5.1 (m mol/L) Final Result may be falsely elevat ed due to hemolysis. Cl 12/08/2023 09:57:00 106 98-107 (mm ol/L) Final CO2 12/08/2023 09:57:00 25 22-32 (mmo l/L) Final Anion gap 12/08/2023 09:57:00 9 7-15 (mmol /L) Final Glucose 12/08/2023 09:57:00 156 Above high normal 70 -120 (mg/dL) Final Calcium 12/08/2023 09:57:00 8.8 8.4-10.2 ( mg/dL) Final Performing Location [place] [facility] [place] [address] [place] [address]
--- OUTSIDE RECORDS SUMMARY | 2023-12-30 16:24 | External Medical Summary ---
Author Name Unknown Address Unknown Organization : Laboratory Report Ordering Provider Test Date Status URIEL ARMSTRONG 12/07/2023 17:51:42 Final Observation Date Value Abnormality Reference (Units ) Status Glucose Point of Care 12/07/2023 17:51:42 146 Above high normal 70-120 (mg/dL) Final Performing Location
--- OUTSIDE RECORDS SUMMARY | 2023-12-30 16:24 | External Medical Summary ---
Author Name Unknown Address Unknown Organization : Laboratory Report Ordering Provider Test Date Status RAO TAN 12/03/2023 18:17:55 Final Observation Date Value Abnormality Reference (Units ) Status Glucose Point of Care 12/03/2023 18:17:55 85 70-120 (mg/dL) Final Performing Location
--- OUTSIDE RECORDS SUMMARY | 2023-12-30 16:24 | External Medical Summary ---
Author Name Unknown Address Unknown Organization K01:LABORATORY [facility] [place] - [address] [place] [address] Laboratory Report Ordering Provider Test Date Status MICHELLE TOMPKINS 12/05/2023 07:00:00 Final Observation Date Value Abnormality Reference (Units ) Status BUN 12/05/2023 07:00:00 31 Above high normal 6-20 (mg/dL) Final Creatinine 12/05/2023 07:00:00 1.2 0.6-1.2 (mg/dL) Final Glomerular filtration rate/1.73 sq M.predicted [Volume Rate/Area] in Serum, Plasma or Blood by Creatinine-based formula (CKD-EPI) 12/05/2023 07:00:00 61 >=60 (mL/min) Final eGFR is calculated based on the CKD-EPI 2020 equation SODIUM 12/05/2023 07:00:00 140 135-146 (m mol/L) Final Potassium 12/05/2023 07:00:00 4.1 3.5-5.1 (m mol/L) Final Result may be falsely elevat ed due to hemolysis. Cl 12/05/2023 07:00:00 107 98-107 (mm ol/L) Final CO2 12/05/2023 07:00:00 23 22-32 (mmo l/L) Final Anion gap 12/05/2023 07:00:00 10 7-15 (mmol /L) Final Glucose 12/05/2023 07:00:00 144 Above high normal 70 -120 (mg/dL) Final Albumin 12/05/2023 07:00:00 3.0 Below low normal 3.8 -5.0 (g/dL) Final AST (Aspartate aminotransferase) 12/05/2023 07:00:00 30 10-50 (U/L) Fin al Result may be falsely elevat ed due to hemolysis. Alk Phos 12/05/2023 07:00:00 63 35-130 (U/ L) Final Bilirubin, Total 12/05/2023 07:00:00 1.3 Above high no rmal <=1.2 (mg/dL) Final Calcium 12/05/2023 07:00:00 9.0 8.4-10.2 ( mg/dL) Final Protein 12/05/2023 07:00:00 6.3 6.0-8.3 (g /dL) Final ALT (Alanine aminotransferase) 12/05/2023 07:00:00 12 10-50 (U/L) Juan Manuel honeycutt Performing Location LABORATORY [facility] [place] - [address] [facility] [address]
--- OUTSIDE RECORDS SUMMARY | 2023-12-30 16:24 | External Medical Summary ---
Author Name Unknown Address Unknown Organization K01:[place] [facility] [place] [address] [place] [address] Laboratory Report Ordering Provider Test Date Status MICHELLE TOMPKINS 12/03/2023 14:57:00 Final Observation Date Value Abnormality Reference (Units ) Status Borrelia burgdorferi IgG and IgM [Interpretation] in Serum by Immunoassay 12/03/2023 14:57:00 Negative Negative Final Performing Location LABORATORY [facility] - [address] [place] [address]
--- OUTSIDE RECORDS SUMMARY | 2023-12-30 16:24 | External Medical Summary ---
Author Name Unknown Address Unknown Organization K01:LAB[facility]ATORY [facility] [place] - [address] [place] [address] Laboratory Report Ordering Provider Test Date Status HUMBERTO VÁSQUEZ 12/03/2023 20:03:00 Final Observation Date Value Abnormality Reference (Units ) Status Legionella pneumophila 1 Ag [Presence] in Urine 12/03/2023 20:03:00 Negative Negative Final Presumptive negative for L. pneumophila serogroup 1 antigens. A negative result does not rule out the possibility of Legionella infection due to other serogroups or species of Legionella. Performing Location LABORATORY [facility] - [address] [facility] [address]
--- OUTSIDE RECORDS SUMMARY | 2023-12-30 16:24 | External Medical Summary ---
Author Name Unknown Address Unknown Organization K01:LABORATORY [facility] [place] - [address] [place] [address] Laboratory Report Ordering Provider Test Date Status HUMBERTO VÁSQUEZ 12/04/2023 15:02:00 Final Observation Date Value Abnormality Reference (Units ) Status Bacteria identified in Specimen by Culture 12/04/2023 15:02:00 No growth Final Test: Culture, Blood
Sudarshan key Source: Blood, Venous
Specimen Type: Blood
Specimen Date: 12/04/2023 3:02 PM
Result Date: 12/09/2023 4:01 PM
Result Status: Final result
Resulting Lab: LABORATORY [facility] [place]
[address]
[place] [address]

CULTURE

No growth

null Performing Location LABORATORY [facility] [place] - [address] [place] [address]
--- OUTSIDE RECORDS SUMMARY | 2023-12-30 16:24 | External Medical Summary ---
Author Name Unknown Address Unknown Organization K01:LABORATORY [facility] [place] - [address] [place] [address] Laboratory Report Ordering Provider Test Date Status PHILSALLY 12/08/2023 09:04:00 Final Observation Date Value Abnormality Reference (Units ) Status WBC, Total 12/08/2023 09:04:00 9.12 4.00-10.80 (K/uL) Final RBC 12/08/2023 09:04:00 3.70 4.50-5.25 (M/uL) Final Hemoglobin 12/08/2023 09:04:00 11.1 Below low normal 14.0-16.8 (g/dL) Final HCT 12/08/2023 09:04:00 34.7 Below low normal 40.0-48.4 (%) Final MCV 12/08/2023 09:04:00 93.8 82.0-99.5 (fL) Final MCH 12/08/2023 09:04:00 30.0 27.0-34.0 (pg) Final MCHC 12/08/2023 09:04:00 32.0 32.0-36.0 (g/dL) Final RDW 12/08/2023 09:04:00 15.5 11.5-15.5 (%) Final Platelets 12/08/2023 09:04:00 197 140-400 (K/uL) Final MPV 12/08/2023 09:04:00 12.2 6.6-11.1 (fL) Final Nucleated erythrocytes/100 leukocytes [Ratio] in Blood by Automated count 12/08/2023 09:04:00 0 <=0 (/100 WBCs) Final Performing Location LABORATORY [facility] [place] - [address] [place] [address]
--- OUTSIDE RECORDS SUMMARY | 2023-12-30 16:24 | External Medical Summary ---
Author Name Unknown Address Unknown Organization : Laboratory Report Ordering Provider Test Date Status SALLY VILLARREAL 12/05/2023 05:46:18 Final Observation Date Value Abnormality Reference (Units ) Status Glucose Point of Care 12/05/2023 05:46:18 128 Above high normal 70-120 (mg/dL) Final Performing Location
--- OUTSIDE RECORDS SUMMARY | 2023-12-30 16:24 | External Medical Summary ---
Author Name Unknown Address Unknown Organization : Laboratory Report Ordering Provider Test Date Status URIEL ARMSTRONG 12/08/2023 05:44:09 Final Observation Date Value Abnormality Reference (Units ) Status Glucose Point of Care 12/08/2023 05:44:09 127 Above high normal 70-120 (mg/dL) Final Performing Location
--- OUTSIDE RECORDS SUMMARY | 2023-12-30 16:24 | External Medical Summary ---
Author Name Unknown Address Unknown Organization K01:[place] [facility] [place] [address] [place] [address] Laboratory Report Ordering Provider Test Date Status PATTIURIEL 12/08/2023 09:57:00 Final Observation Date Value Abnormality Reference (Units ) Status Vitamin B12 12/08/2023 09:57:00 [phone] (pg/mL) Final Performing Location LAB[facility]ORY [facility] - [address] [place] [address]
--- OUTSIDE RECORDS SUMMARY | 2023-12-30 16:24 | External Medical Summary ---
Author Name Unknown Address Unknown Organization K01:[place] [facility] [place] [address] [place] [address] Laboratory Report Ordering Provider Test Date Status URIEL ARMSTRONG 12/08/2023 09:57:00 Final Deficient: <20 ng/mL
Ins ufficient: 20-29 ng/mL
Recommended/Optimum:30-50 ng/mL

Vitamin D intoxication is rare. If suspicious of Vitamin D toxicity, evaluation of serum Calcium and PTH is recommended. Observation Date Value Abnormality Reference (Units ) Status 25-OH Vitamin D total 12/08/2023 09:57:00 29 >19 (ng/mL) Final Performing Location LABORATORY [facility] - [address] [place] [address]
--- OUTSIDE RECORDS SUMMARY | 2023-12-30 16:24 | External Medical Summary ---
Author Name Unknown Address Unknown Organization K01:[place] [facility] [place] [address] [place] [address] Laboratory Report Ordering Provider Test Date Status MICHELLE TOMPKINS 12/03/2023 07:17:00 Final Observation Date Value Abnormality Reference (Units ) Status WBC, Total 12/03/2023 07:17:00 8.04 4.00-10.80 (K/uL) Final RBC 12/03/2023 07:17:00 3.97 4.50-5.25 (M/uL) Final Hemoglobin 12/03/2023 07:17:00 11.7 Below low normal 14.0-16.8 (g/dL) Final HCT 12/03/2023 07:17:00 38.0 Below low normal 40.0-48.4 (%) Final MCV 12/03/2023 07:17:00 95.7 82.0-99.5 (fL) Final MCH 12/03/2023 07:17:00 29.5 27.0-34.0 (pg) Final MCHC 12/03/2023 07:17:00 30.8 32.0-36.0 (g/dL) Final RDW 12/03/2023 07:17:00 15.3 11.5-15.5 (%) Final Platelets 12/03/2023 07:17:00 128 Below low normal 140-400 (K/uL) Final MPV 12/03/2023 07:17:00 12.3 6.6-11.1 (fL) Final Nucleated erythrocytes/100 leukocytes [Ratio] in Blood by Automated count 12/03/2023 07:17:00 0 <=0 (/100 WBCs) Final Performing Location LAB[facility]ORY [facility] [place] [address] [place] [address]
--- OUTSIDE RECORDS SUMMARY | 2023-12-30 16:24 | External Medical Summary ---
Author Name Unknown Address Unknown Organization : Laboratory Report Ordering Provider Test Date Status HUMBERTO VÁSQUEZ 12/04/2023 22:17:00 Final Observation Date Value Abnormality Reference (Units ) Status Performing Location
--- OUTSIDE RECORDS SUMMARY | 2023-12-30 16:24 | External Medical Summary | Summary of Care ---
Author Name Unknown Organization [facility] Address [address] [place] [address] Phone [phone] Care Team Providers Care [employer] Switchboard Operator Name Role Phone Juan Dominique MD Primary Care Pr ovider Reason for Visit * Auth/Cert Specialty Diagnoses / Procedures Referred By Javid kendrick Referred To Contact Diagnoses Myasthenia (HCC) Myasthenia gravis Referral ID Status Reason Start Date Expiration Date Visits Re quested Visits Authorized [id number] Encounter Details Date Type Department Care Team (Latest Contact Info) Description 12/05/2023 8:36 AM EST - 12/05/2023 11:59 PM EST Hospital Encounter Cardiac Studies [facility] [address] [place] [address] Discharge Disposition: Home - Self Care Allergies Active Allergy Reactions Criticality Noted Date Comments Felodipine High 11/15/2012 Other Reaction(s): hives Flunisolide 11/15/2012 Other Reaction(s): other Gabapentin High 07/16/2013 Other Reaction(s): Drowsy, GI SYMPTOMS Hydrochlorothiazide W-Triamterene 11/15/2012 Thiazide-Type Diuretics 07/21/2004 gout documented as of this encounter (statuses as of 12/06/2023) Medications Medication Sig Dispensed Refills Start Date End Date Status Pyridostigmine Salem 60 MG Oral Tablet (Mestinon) Take 0.5 Tablets by mouth in the morning and 0.5 Tablets at noon and 0.5 Tablets before bedtime. 0 Suspended Acetaminophen 325 MG Oral Tablet (Tylenol) Take 1 Tablet by mouth every 6 hours as needed for Fever >38C(100.5F) or Pain, Moderate. 0 Suspended amLODIPine Besylate 5 MG Oral Tablet (Norvasc) Take 1 Tablet by mouth in the morning and 1 Tablet before bedtime. 0 Suspended Cyanocobalamin 1000 MCG Oral Tablet (Cyanocobalamin) Take 1 Tablet by mouth in the morning. 0 Suspended Diclofenac Sodium 1 % External Cream Apply topically as needed to elbow for pain. 0 Suspended Losartan Potassium 50 MG Oral Tablet (Cozaar) Take 1 Tablet by mouth in the morning. 0 Suspended Pravastatin Sodium 40 MG Oral Tablet (Pravachol) Take 1 Tablet by mouth every evening. 0 Suspended Amiodarone HCl 200 MG Oral Tablet (Cordarone) Take 1 Tablet by mouth in the morning. 0 04/12/2023 Suspended Aspirin 81 MG Oral Tablet Chewable 1 Tablet. 0 09/15/2023 Suspended Clopidogrel Bisulfate 75 MG Oral Tablet (pLAVix) Take 1 Tablet by mouth in the morning. 0 09/18/2023 Suspended Benzonatate 100 MG Oral Capsule (Tessalon Perles) 1 Capsule. 0 09/20/2023 Suspend ed Potassium Citrate ER 10 MEQ (1080 MG) Oral Tablet Extended Release (Urocit-K) 1 Tablet. 0 07/26/2023 Suspended pyRIDostigmine Salem ER 180 MG Oral Tablet Extended Release (Mestinon Timespan) Take 1 Tablet by mouth in the morning. 0 Suspended Vitamin D (Ergocalciferol) 1.25 MG (21010 UT) Oral Capsule (Drisdol) Take 1 Capsule by mouth once a week. 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 Overview: ICD-10 update of inactive term History of peptic ulcer disease Overview: ICD-10 update of inactive term GENERAL OSTEOARTHROSIS Major depressive disorder Overview: ICD-10 update of inactive term BENIGN HYPERTENSION PURE HYPERCHOLESTEROLEM documented as of this encounter (statuses as of 12/06/2023) Immunizations Name Administration Dates Next Due Seasonal [...] on file documented as of this encounter Functional Status Functional Status Response [...] No 12/23/2021 documented as of this encounter Plan of Treatment Health Maintenance Due Date Last Done Comments Depression Screening 1954 Albumin/Creatinine Ratio 1960 Zoster Vaccines (1 of 2) 1992 Hepatitis B (1 of 3 - Risk 3-dose series) 2002 TSH 11/29/2024 11/29/2023, 07/2005, 08/11/1997 GFR 12/06/2024 12/06/2023, 11/08, 12/04/2023, Additional history exists DTaP,Tdap,and Td Vaccines (2 - Td or Tdap) 02/21/2026 02/22/2016 Pneumococcal Vaccine: 65+ Years Completed 11/06/2017, 11/25/2016, 01/07/2008 Influenza Vaccine (FLU shot) Completed 11/2022, 08/13/2019, 10/09/2018, Additional history exists COVID-19 Vaccine Completed 10/18/2023, 05/14/2021 GARDASIL-HPV IMMUNIZATION SERIES Aged Out No longer eligible based on patient's age to complete this topic MENINGOCOCCAL (MENACTRA/MENVEO) Aged Out No longer eligible based on patient's age to complete this topic documented as of this encounter Medical Devices Not on filedocumented as of this encounter Procedures Procedure Name Priority Date/Time Associated Diagnosis Comments ECHO, COMPLETE (2D), TRANS-THORACIC Routine 12/05/2023 9:02 AM EST Cardiac arrhythmia, unspecified documented in this encounter Results * ECHO, COMPLETE (2D), TRANS-THORACIC (12/05/2023 9:02 AM EST) LEFT VENTRICULAR EJECTION FRACTION 60 % [facility] 12/05/2023 8:45 AM EST Odette Galeas MD ECHOCARDIOLOGY [facility] documented in this encounter Additional Health Concerns Infection Onset Date Last Indicated Resolved Time Bacterial Meningitis Rule-Out 12/05/2023 11/30/2023 12/05/2023 12:25 PM EST documented as of this encounter Advance Directives Latest Code Status on File Code Status Date Activated Date Inactivated Comments Full Code 11/29/2023 9:31 PM This order reflects the patients wishes and were consensually agreed upon. Question Answer Comments Discussion of Advance Directives occurred with: Patient Code Status History Code Status Date Activated Date Inactivated Comments Full Code 12/23/2021 10:34 AM 12/25/2021 6:35 PM This order reflects the patients wishes and were consensually agreed upon. Question Answer Comments Discussion of Advance Directives occurred with: Patient Care Teams [employer] Switchboard Operator Relationship Specialty Start Date End Date Juan Dominique MD [address] [place] [address] PCP - General Family Medicine 09/26/23 documented as of this encounter
--- OUTSIDE RECORDS SUMMARY | 2023-12-30 16:24 | External Medical Summary ---
Author Name Unknown Address Unknown Organization [id number]:[facility] [place] [address] [place] [address] Laboratory Report Ordering Provider Test Date Status SHEKHAR ARMSTRONGCarmelo 12/08/2023 09:57:00 Final Observation Date Value Abnormality Reference (Units ) Status Acetaminophen 12/08/2023 09:57:00 <5.0 Below low normal 10.0-30.0 (ug/mL) Final Performing Location [facility] - [address] [place] [address]
--- OUTSIDE RECORDS SUMMARY | 2023-12-30 16:24 | External Medical Summary ---
Author Name Unknown Address Unknown Organization : Laboratory Report Ordering Provider Test Date Status RAO TAN 12/03/2023 05:25:22 Final Observation Date Value Abnormality Reference (Units ) Status Glucose Point of Care 12/03/2023 05:25:22 73 70-120 (mg/dL) Final Performing Location
--- OUTSIDE RECORDS SUMMARY | 2023-12-30 16:24 | External Medical Summary ---
Author Name Unknown Address Unknown Organization [id number]:[place] [place] [address] [place] [address] Laboratory Report Ordering Provider Test Date Status MICHELLE TOMPKINS 12/03/2023 07:17:00 Final Observation Date Value Abnormality Reference (Units ) Status BUN 12/03/2023 07:17:00 15 6-20 (mg/dL) Final Creatinine 12/03/2023 07:17:00 1.2 0.6-1.2 (mg/dL) Final Glomerular filtration rate/1.73 sq M.predicted [Volume Rate/Area] in Serum, Plasma or Blood by Creatinine-based formula (CKD-EPI) 12/03/2023 07:17:00 61 >=60 (mL/min) Final eGFR is calculated based on the CKD-EPI 2020 equation SODIUM 12/03/2023 07:17:00 141 135-146 (m mol/L) Final Potassium 12/03/2023 07:17:00 4.1 3.5-5.1 (m mol/L) Final Cl 12/03/2023 07:17:00 109 Above high normal 98 -107 (mmol/L) Final CO2 12/03/2023 07:17:00 26 22-32 (mmo l/L) Final Anion gap 12/03/2023 07:17:00 6 Below low normal 7-1 5 (mmol/L) Final Glucose 12/03/2023 07:17:00 93 70-120 (mg /dL) Final Calcium 12/03/2023 07:17:00 8.6 8.4-10.2 ( mg/dL) Final Performing Location [facility] [place] [address] [place] [address]
--- OUTSIDE RECORDS SUMMARY | 2023-12-30 16:24 | External Medical Summary ---
Author Name Unknown Address Unknown Organization : Laboratory Report Ordering Provider Test Date Status RAO TAN 12/03/2023 23:49:51 Final Observation Date Value Abnormality Reference (Units ) Status Glucose Point of Care 12/03/2023 23:49:51 79 70-120 (mg/dL) Final Performing Location
--- OUTSIDE RECORDS SUMMARY | 2023-12-30 16:24 | External Medical Summary ---
Author Name Unknown Address Unknown Organization [id number]:[facility] [place] [address] [facility] [place] [address] Laboratory Report Ordering Provider Test Date Status MICHELLE TOMPKINS 12/04/2023 06:35:00 Final Observation Date Value Abnormality Reference (Units ) Status BUN 12/04/2023 06:35:00 20 6-20 (mg/dL) Final Creatinine 12/04/2023 06:35:00 1.2 0.6-1.2 (mg/dL) Final Glomerular filtration rate/1.73 sq M.predicted [Volume Rate/Area] in Serum, Plasma or Blood by Creatinine-based formula (CKD-EPI) 12/04/2023 06:35:00 61 >=60 (mL/min) Final eGFR is calculated based on the CKD-EPI 2020 equation SODIUM 12/04/2023 06:35:00 142 135-146 (m mol/L) Final Potassium 12/04/2023 06:35:00 4.1 3.5-5.1 (m mol/L) Final Cl 12/04/2023 06:35:00 108 Above high normal 98 -107 (mmol/L) Final CO2 12/04/2023 06:35:00 23 22-32 (mmo l/L) Final Anion gap 12/04/2023 06:35:00 11 7-15 (mmol /L) Final Glucose 12/04/2023 06:35:00 120 70-120 (mg /dL) Final Albumin 12/04/2023 06:35:00 3.4 Below low normal 3.8 -5.0 (g/dL) Final AST (Aspartate aminotransferase) 12/04/2023 06:35:00 24 10-50 (U/L) Fin al Alk Phos 12/04/2023 06:35:00 68 35-130 (U/ L) Final Bilirubin, Total 12/04/2023 06:35:00 1.5 Above high no rmal <=1.2 (mg/dL) Final Calcium 12/04/2023 06:35:00 9.3 8.4-10.2 ( mg/dL) Final Protein 12/04/2023 06:35:00 6.8 6.0-8.3 (g /dL) Final ALT (Alanine aminotransferase) 12/04/2023 06:35:00 14 10-50 (U/L) Juan Manuel honeycutt Performing Location [facility] [place] [address] [facility] [address]
--- OUTSIDE RECORDS SUMMARY | 2023-12-30 16:24 | External Medical Summary ---
Author Name Unknown Address Unknown Organization : Laboratory Report Ordering Provider Test Date Status HUMBERTO VÁSQUEZ 12/04/2023 17:47:02 Final Observation Date Value Abnormality Reference (Units ) Status Glucose Point of Care 12/04/2023 17:47:02 137 Above high normal 70-120 (mg/dL) Final Performing Location
--- OUTSIDE RECORDS SUMMARY | 2023-12-30 16:24 | External Medical Summary ---
Author Name Unknown Address Unknown Organization : Laboratory Report Ordering Provider Test Date Status SALLY VILLARREAL 12/06/2023 00:04:01 Final Observation Date Value Abnormality Reference (Units ) Status Glucose Point of Care 12/06/2023 00:04:01 130 Above high normal 70-120 (mg/dL) Final Performing Location
--- OUTSIDE RECORDS SUMMARY | 2023-12-30 16:24 | External Medical Summary ---
Author Name Unknown Address Unknown Organization K01:[facility]ATORY [facility] [place] - [address] [facility] [place] [address] Laboratory Report Ordering Provider Test Date Status HUMBERTO VÁSQUEZ 12/04/2023 15:02:00 Final Observation Date Value Abnormality Reference (Units ) Status SYNC LEUKOCYTES IN BLOOD BY AUTOMATED COUNT 12/04/2023 15:02:00 9.23 4.00-10.80 (K/uL) Final Segs 12/04/2023 15:02:00 72.8 40.0-75.0 (%) Final Lymphs % 12/04/2023 15:02:00 8.2 Below low normal 18.0-42.0 (%) Final Monos 12/04/2023 15:02:00 17.9 Above high normal 1.0-11.0 (%) Final Eosinophils 12/04/2023 15:02:00 0.7 0.0-6.0 (%) Final Basos 12/04/2023 15:02:00 0.1 0.0-2.0 (%) Final Immature Granulocyte, Percent 12/04/2023 15:02:00 0.3 0.0-2.0 (%) Final Absolute Segs 12/04/2023 15:02:00 6.72 1.80-7.70 (K/uL) Final Lymphs, absolute 12/04/2023 15:02:00 0.76 Below low normal 1.00-4.80 (K/ul) Final Monos, Abs 12/04/2023 15:02:00 1.65 Above high normal 0.00-1.10 (K/uL) Final Eos, Abs 12/04/2023 15:02:00 0.06 0.00-0.70 (K/uL) Final Basos, Abs 12/04/2023 15:02:00 0.01 0.00-0.20 (K/uL) Final Immature Granulocytes, Number 12/04/2023 15:02:00 0.03 0.00-0.20 (K/uL) Final Performing Location LABORATORY [facility] [place] - [facility] [address] [facility] [address]
--- OUTSIDE RECORDS SUMMARY | 2023-12-30 16:24 | External Medical Summary ---
Author Name Unknown Address Unknown Organization K01:LAB[facility]ATORY [facility] - [address] [place] [address] Laboratory Report Ordering Provider Test Date Status MICHELLE TOMPKINS 12/05/2023 07:00:00 Final Observation Date Value Abnormality Reference (Units ) Status Phosphate 12/05/2023 07:00:00 2.3 Below low normal 2.5 -4.8 (mg/dL) Final Performing Location [facility] - [address] [place] [address]
--- OUTSIDE RECORDS SUMMARY | 2023-12-30 16:24 | External Medical Summary ---
Author Name Unknown Address Unknown Organization K01:[facility]ORY [facility] [place] [address] [place] [address] Laboratory Report Ordering Provider Test Date Status SALLY VILLARREAL 12/06/2023 05:46:00 Final Observation Date Value Abnormality Reference (Units ) Status BUN 12/06/2023 05:46:00 27 Above high normal 6-20 (mg/dL) Final Creatinine 12/06/2023 05:46:00 1.1 0.6-1.2 (mg/dL) Final Glomerular filtration rate/1.73 sq M.predicted [Volume Rate/Area] in Serum, Plasma or Blood by Creatinine-based formula (CKD-EPI) 12/06/2023 05:46:00 69 >=60 (mL/min) Final eGFR is calculated based on the CKD-EPI 2020 equation SODIUM 12/06/2023 05:46:00 141 135-146 (m mol/L) Final Potassium 12/06/2023 05:46:00 3.8 3.5-5.1 (m mol/L) Final Cl 12/06/2023 05:46:00 110 Above high normal 98 -107 (mmol/L) Final CO2 12/06/2023 05:46:00 22 22-32 (mmo l/L) Final Anion gap 12/06/2023 05:46:00 9 7-15 (mmol /L) Final Glucose 12/06/2023 05:46:00 126 Above high normal 70 -120 (mg/dL) Final Calcium 12/06/2023 05:46:00 8.7 8.4-10.2 ( mg/dL) Final Albumin 12/06/2023 05:46:00 2.9 Below low normal 3.8 -5.0 (g/dL) Final Phosphate 12/06/2023 05:46:00 2.3 Below low normal 2.5 -4.8 (mg/dL) Final Performing Location [facility] - [address] [place] [address]
--- OUTSIDE RECORDS SUMMARY | 2023-12-30 16:24 | External Medical Summary ---
Author Name Unknown Address Unknown Organization K01:[facility] [place] [address] [place] [address] Laboratory Report Ordering Provider Test Date Status PHILSALLY 12/07/2023 07:22:00 Final Observation Date Value Abnormality Reference (Units ) Status WBC, Total 12/07/2023 07:22:00 10.63 4.00-10.80 (K/uL) Final RBC 12/07/2023 07:22:00 3.78 4.50-5.25 (M/uL) Final Hemoglobin 12/07/2023 07:22:00 11.4 Below low normal 14.0-16.8 (g/dL) Final HCT 12/07/2023 07:22:00 35.7 Below low normal 40.0-48.4 (%) Final MCV 12/07/2023 07:22:00 94.4 82.0-99.5 (fL) Final MCH 12/07/2023 07:22:00 30.2 27.0-34.0 (pg) Final MCHC 12/07/2023 07:22:00 31.9 32.0-36.0 (g/dL) Final RDW 12/07/2023 07:22:00 15.5 11.5-15.5 (%) Final Platelets 12/07/2023 07:22:00 181 140-400 (K/uL) Final MPV 12/07/2023 07:22:00 12.2 6.6-11.1 (fL) Final Nucleated erythrocytes/100 leukocytes [Ratio] in Blood by Automated count 12/07/2023 07:22:00 0 <=0 (/100 WBCs) Final Performing Location [facility] [place] [address] [place] [address]
--- OUTSIDE RECORDS SUMMARY | 2023-12-30 16:24 | External Medical Summary ---
Author Name Unknown Address Unknown Organization K01:LAB[facility]ATORY [facility] - [address] [place] [address] Laboratory Report Ordering Provider Test Date Status MICHELLE TOMPKINS 12/03/2023 07:17:00 Final Observation Date Value Abnormality Reference (Units ) Status CRP, low-sensitivity 12/03/2023 07:17:00 86 Above high normal <=5 (mg/L) Final Performing Location [facility] - [address] [place] [address]
--- OUTSIDE RECORDS SUMMARY | 2023-12-30 16:24 | External Medical Summary ---
Author Name Unknown Address Unknown Organization K01:LAB[facility]ATORY [facility] [place] [address] [place] [address] Laboratory Report Ordering Provider Test Date Status PARESH VÁSQUEZThi 12/04/2023 15:02:00 Final Observation Date Value Abnormality Reference (Units ) Status Blood smear finding [Identifier] in Blood by Light microscopy 12/04/2023 15:02:00 No organisms present No organisms present Final CLINICAL INDICATION FOR SMEAR 12/04/2023 15:02:00 r/o parasite or abnormal cells Final Performing Location LAB[facility]ATORY [facility] - [address] [place] [address]
--- OUTSIDE RECORDS SUMMARY | 2023-12-30 16:24 | External Medical Summary ---
Author Name Unknown Address Unknown Organization : Laboratory Report Ordering Provider Test Date Status URIEL ARMSTRONG 12/07/2023 11:44:28 Final Observation Date Value Abnormality Reference (Units ) Status Glucose Point of Care 12/07/2023 11:44:28 150 Above high normal 70-120 (mg/dL) Final Performing Location
--- OUTSIDE RECORDS SUMMARY | 2023-12-30 16:24 | External Medical Summary ---
Author Name Unknown Address Unknown Organization : Laboratory Report Ordering Provider Test Date Status URIEL ARMSTRONG 12/06/2023 05:52:28 Final Observation Date Value Abnormality Reference (Units ) Status Glucose Point of Care 12/06/2023 05:52:28 128 Above high normal 70-120 (mg/dL) Final Performing Location
--- OUTSIDE RECORDS SUMMARY | 2023-12-30 16:24 | External Medical Summary ---
Author Name Unknown Address Unknown Organization K01:[place] [place] [address] [place] [address] Laboratory Report Ordering Provider Test Date Status HUMBERTO VÁSQUEZ 12/04/2023 22:16:00 Final Observation Date Value Abnormality Reference (Units ) Status Hep C Ab 12/04/2023 22:16:00 Negative Negative Final Further HCV quantitative jamila ting not performed per protocol. Performing Location [facility] [place] [address] [place] [address]
--- OUTSIDE RECORDS SUMMARY | 2023-12-30 16:24 | External Medical Summary ---
Author Name Unknown Address Unknown Organization : Laboratory Report Ordering Provider Test Date Status MICHEAL KESSLER 12/04/2023 11:45:49 Final Observation Date Value Abnormality Reference (Units ) Status Glucose Point of Care 12/04/2023 11:45:49 161 Above high normal 70-120 (mg/dL) Final Performing Location
--- OUTSIDE RECORDS SUMMARY | 2023-12-30 16:24 | External Medical Summary ---
Author Name Unknown Address Unknown Organization : Laboratory Report Ordering Provider Test Date Status RAO TAN 12/04/2023 05:31:14 Final Observation Date Value Abnormality Reference (Units ) Status Glucose Point of Care 12/04/2023 05:31:14 115 70-120 (mg/dL) Final Performing Location
--- OUTSIDE RECORDS SUMMARY | 2023-12-30 16:24 | External Medical Summary ---
Author Name Unknown Address Unknown Organization K01:LABORATORY [facility] - [address] [place] [address] Laboratory Report Ordering Provider Test Date Status SHEKHAR ARMSTRONGCarmelo 12/08/2023 09:57:00 Final Observation Date Value Abnormality Reference (Units ) Status Magnesium 12/08/2023 09:57:00 2.0 1.5-2.6 (m g/dL) Final Performing Location [facility] - [address] [place] [address]
--- OUTSIDE RECORDS SUMMARY | 2023-12-30 16:24 | External Medical Summary ---
Author Name Unknown Address Unknown Organization K01:[facility] [place] [address] [facility] Laboratory Report Ordering Provider Test Date Status HUMBERTO VÁSQUEZ 12/04/2023 16:51:00 Final Observation Date Value Abnormality Reference (Units ) Status Bacteria identified in Specimen by Culture 12/04/2023 16:51:00 No growth Final Test: Culture, Blood (Site 2 )
Specimen Source: Blood, Venous
Specimen Type: Blood
Specimen Date: 12/04/2023 4:51 PM
Result Date: 12/09/2023 6:01 PM
Result Status: Final result
Resulting Lab: LAB[facility]ORY [facility] [place]
[address]
[place] [address]

CULTURE

No growth

null Performing Location LABORATORY [facility] [place] - [address] [place] [address]
--- OUTSIDE RECORDS SUMMARY | 2023-12-30 16:24 | External Medical Summary ---
Author Name Unknown Address Unknown Organization K01:LABORATORY [facility] [place] - [facility] [address] [place] [address] Laboratory Report Ordering Provider Test Date Status HUMBERTO VÁSQUEZ 12/04/2023 15:02:00 Final Observation Date Value Abnormality Reference (Units ) Status WBC, Total 12/04/2023 15:02:00 9.23 4.00-10.80 (K/uL) Final RBC 12/04/2023 15:02:00 4.27 4.50-5.25 (M/uL) Final Hemoglobin 12/04/2023 15:02:00 12.7 Below low normal 14.0-16.8 (g/dL) Final HCT 12/04/2023 15:02:00 40.3 40.0-48.4 (%) Final MCV 12/04/2023 15:02:00 94.4 82.0-99.5 (fL) Final MCH 12/04/2023 15:02:00 29.7 27.0-34.0 (pg) Final MCHC 12/04/2023 15:02:00 31.5 32.0-36.0 (g/dL) Final RDW 12/04/2023 15:02:00 15.4 11.5-15.5 (%) Final Platelets 12/04/2023 15:02:00 164 140-400 (K/uL) Final MPV 12/04/2023 15:02:00 12.3 6.6-11.1 (fL) Final Nucleated erythrocytes/100 leukocytes [Ratio] in Blood by Automated count 12/04/2023 15:02:00 0 <=0 (/100 WBCs) Final Performing Location LABORATORY [facility] [place] - [address] [place] [address]
--- OUTSIDE RECORDS SUMMARY | 2023-12-30 16:24 | External Medical Summary ---
Author Name Unknown Address Unknown Organization : Laboratory Report Ordering Provider Test Date Status URIEL ARMSTRONG 12/06/2023 12:07:02 Final Observation Date Value Abnormality Reference (Units ) Status Glucose Point of Care 12/06/2023 12:07:02 144 Above high normal 70-120 (mg/dL) Final Performing Location
--- OUTSIDE RECORDS SUMMARY | 2023-12-30 16:24 | External Medical Summary ---
Author Name Unknown Address Unknown Organization K01:LABORATORY [facility] [place] - [address] [facility] [place] [address] Laboratory Report Ordering Provider Test Date Status URIEL ARMSTRONG 12/08/2023 09:57:00 Final Observation Date Value Abnormality Reference (Units ) Status SYNC LEUKOCYTES IN BLOOD BY AUTOMATED COUNT 12/08/2023 09:57:00 Final Segs 12/08/2023 09:57:00 72.8 40.0-75.0 (%) Final Lymphs % 12/08/2023 09:57:00 12.1 Below low normal 18.0-42.0 (%) Final Monos 12/08/2023 09:57:00 13.3 Above high normal 1.0-11.0 (%) Final Eosinophils 12/08/2023 09:57:00 1.0 0.0-6.0 (%) Final Basos 12/08/2023 09:57:00 0.2 0.0-2.0 (%) Final Immature Granulocyte, Percent 12/08/2023 09:57:00 0.6 0.0-2.0 (%) Final Absolute Segs 12/08/2023 09:57:00 6.39 1.80-7.70 (K/uL) Final Lymphs, absolute 12/08/2023 09:57:00 1.06 1.00-4.80 (K/ul) Final Monos, Abs 12/08/2023 09:57:00 1.17 Above high normal 0.00-1.10 (K/uL) Final Eos, Abs 12/08/2023 09:57:00 0.09 0.00-0.70 (K/uL) Final Basos, Abs 12/08/2023 09:57:00 0.02 0.00-0.20 (K/uL) Final Immature Granulocytes, Number 12/08/2023 09:57:00 0.05 0.00-0.20 (K/uL) Final Performing Location LABORATORY [facility] [place] - [address] [facility] [address]
--- OUTSIDE RECORDS SUMMARY | 2023-12-30 16:24 | External Medical Summary ---
Author Name Unknown Address Unknown Organization K01:LABORATORY [facility] - [address] [place] [address] Laboratory Report Ordering Provider Test Date Status MICHELLE TOMPKINS 12/05/2023 07:00:00 Final Observation Date Value Abnormality Reference (Units ) Status Magnesium 12/05/2023 07:00:00 1.9 1.5-2.6 (m g/dL) Final Performing Location LAB[facility] - [address] [place] [address]
--- OUTSIDE RECORDS SUMMARY | 2023-12-30 16:24 | External Medical Summary ---
Author Name Unknown Address Unknown Organization [id number]:[place] [facility] [place] [address] [place] [address] Laboratory Report Ordering Provider Test Date Status MICHELLE TOMPKINS 12/03/2023 14:57:00 Final Observation Date Value Abnormality Reference (Units ) Status CLINICIAN SLIDE READY? 12/03/2023 14:57:00 Yes Final Performing Location LABORATORY [facility] - [address] [place] [address]
--- OUTSIDE RECORDS SUMMARY | 2023-12-30 16:25 | External Medical Summary ---
Author Name Unknown Address Unknown Organization [id number]:[place] [facility] [place] [address] [facility] [address] Laboratory Report Ordering Provider Test Date Status JS SKINNER 12/02/2023 10:13:00 Final Observation Date Value Abnormality Reference (Units ) Status SYNC LEUKOCYTES IN BLOOD BY AUTOMATED COUNT 12/02/2023 10:13:00 7.91 4.00-10.80 (K/uL) Final Segs 12/02/2023 10:13:00 71.8 40.0-75.0 (%) Final Lymphs % 12/02/2023 10:13:00 12.3 Below low normal 18.0-42.0 (%) Final Monos 12/02/2023 10:13:00 14.8 Above high normal 1.0-11.0 (%) Final Eosinophils 12/02/2023 10:13:00 0.5 0.0-6.0 (%) Final Basos 12/02/2023 10:13:00 0.1 0.0-2.0 (%) Final Immature Granulocyte, Percent 12/02/2023 10:13:00 0.5 0.0-2.0 (%) Final Absolute Segs 12/02/2023 10:13:00 5.68 1.80-7.70 (K/uL) Final Lymphs, absolute 12/02/2023 10:13:00 0.97 Below low normal 1.00-4.80 (K/ul) Final Monos, Abs 12/02/2023 10:13:00 1.17 Above high normal 0.00-1.10 (K/uL) Final Eos, Abs 12/02/2023 10:13:00 0.04 0.00-0.70 (K/uL) Final Basos, Abs 12/02/2023 10:13:00 0.01 0.00-0.20 (K/uL) Final Immature Granulocytes, Number 12/02/2023 10:13:00 0.04 0.00-0.20 (K/uL) Final Performing Location [place] [facility] [place] [facility] [address] [facility] [address]
--- OUTSIDE RECORDS SUMMARY | 2023-12-30 16:25 | External Medical Summary | Summary of Care ---
Author Name Unknown Organization [facility] Address [address] [place] [address] Phone [phone] Care Team Providers Care Technology Adoption Manager Name Role Phone Juan Dominique MD Primary Care Pr ovider Encounter Details Date Type Department Care Team (Latest Contact Info) Description 11/26/2023 2:10 AM EST - 11/26/2023 3:14 AM EST Hospital Encounter Radiology Film File [address] [place] [address] Discharge Disposition: Home - Self Care Allergies Active Allergy Reactions Criticality Noted Date Comments Felodipine High 11/15/2012 Other Reaction(s): hives Flunisolide 11/15/2012 Other Reaction(s): other Gabapentin High 07/16/2013 Other Reaction(s): Drowsy, GI SYMPTOMS Hydrochlorothiazide W-Triamterene 11/15/2012 Thiazide-Type Diuretics 07/21/2004 gout documented as of this encounter (statuses as of 12/02/2023) Medications Medication Sig Dispensed Refills Start Date End Date Status Pyridostigmine [place] 60 MG Oral Tablet (Mestinon) Take 0.5 [...] (Urocit-K) 1 Tablet. 0 07/26/2023 Suspended pyRIDostigmine [place] ER 180 MG Oral Tablet Extended Release (Mestinon Timespan) Take 1 Tablet by mouth in the morning. 0 Suspended Vitamin D (Ergocalciferol) 1.25 MG (73028 UT) Oral Capsule (Drisdol) Take 1 Capsule by mouth once a week. 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 Overview: ICD-10 update of inactive term History of peptic ulcer disease Overview: ICD-10 update of inactive term GENERAL OSTEOARTHROSIS Major depressive disorder Overview: ICD-10 update of inactive term BENIGN HYPERTENSION PURE HYPERCHOLESTEROLEM documented as of this encounter (statuses as of 12/02/2023) Immunizations Name Administration Dates Next Due Seasonal [...] (15 years old or older) No 12/23/19 22 Cognitive Status Response Date of Assessm ent [...] Risk 3-dose series) 2002 COVID-19 Vaccine (2 season) 2023 05/14/2021 GFR 12/02/2024 12/02/2023, 11/07, 11/29/2023, Additional history exists DTaP,Tdap,and Td Vaccines (2 [...] Procedure Name Priority Date/Time Associated Diagnosis Comments RADIOLOGY EXAM - GENERAL RAD (IMAGES ONLY,NO REPORT) Routine 11/26/2023 2:10 AM EST documented in this encounter Results * RADIOLOGY EXAM - GENERAL RAD (IMAGES ONLY,NO REPORT) (11/26/2023 2:10 AM EST) 11/26/2023 2:06 AM EST Narrative Scheduling, Silent - 12/01/2023 9:02 PM EST This is an imaging study not interpreted or resulted by a [facility] or [facility] contracted radiologist. Hua Britton MD RADIOLOGY (RAD GENER AL) documented in this encounter Advance Directives Latest [...] Advance Directives occurred with: Patient Care Teams Technology Adoption Manager Relationship Specialty Start Date End Date Juan Dominique MD [address] [facility], [place] [address] PCP - General Family Medicine 09/26/23 documented as of this encounter
--- OUTSIDE RECORDS SUMMARY | 2023-12-30 16:25 | External Medical Summary ---
Author Name Unknown Address Unknown Organization K01:LABORATORY [facility] [place] - [address] [facility] [place] [address] Laboratory Report Ordering Provider Test Date Status JS SKINNER 12/02/2023 10:42:52 Final ADMITTED patient Observation Date Value Abnormality Reference (Units ) Status Adenovirus DNA [Presence] in Nasopharynx by BHAVANA with non-probe detection 12/02/2023 10:42:52 Negative Negative Final Human coronavirus 229E RNA [Presence] in Nasopharynx by BHAVANA with non-probe detection 12/02/2023 10:42:52 Negative Negative Final Human coronavirus HKU1 RNA [Presence] in Nasopharynx by BHAVANA with non-probe detection 12/02/2023 10:42:52 Negative Negative Final Human coronavirus NL63 RNA [Presence] in Nasopharynx by BHAVANA with non-probe detection 12/02/2023 10:42:52 Negative Negative Final Human coronavirus OC43 RNA [Presence] in Nasopharynx by BHAVANA with non-probe detection 12/02/2023 10:42:52 Negative Negative Final SARS-CoV-2 (COVID-19) RNA [Presence] in Nasopharynx by BHAVANA with non-probe detection 12/02/2023 10:42:52 Negative Negative Final Human metapneumovirus RNA [Presence] in Nasopharynx by BHAVANA with non-probe detection 12/02/2023 10:42:52 Negative Negative Final Rhinovirus+Enterovirus RNA [Presence] in Nasopharynx by BHAVANA with non-probe detection 12/02/2023 10:42:52 Negative Negative Final Influenza virus A RNA [Presence] in Nasopharynx by BHAVANA with non-probe detection 12/02/2023 10:42:52 Negative Negative Final Influenza virus B RNA [Presence] in Nasopharynx by BHAVANA with non-probe detection 12/02/2023 10:42:52 Negative Negative Final Parainfluenza virus 1 RNA [Presence] in Nasopharynx by BHAVANA with non-probe detection 12/02/2023 10:42:52 Negative Negative Final Parainfluenza virus 2 RNA [Presence] in Nasopharynx by BHAVANA with non-probe detection 12/02/2023 10:42:52 Negative Negative Final Parainfluenza virus 3 RNA [Presence] in Nasopharynx by BHAVANA with non-probe detection 12/02/2023 10:42:52 Negative Negative Final Parainfluenza virus 4 RNA [Presence] in Nasopharynx by BHAVANA with non-probe detection 12/02/2023 10:42:52 Negative Negative Final Respiratory syncytial virus RNA [Presence] in Nasopharynx by BHAVANA with non-probe detection 12/02/2023 10:42:52 Negative Negative Final Bordetella pertussis.pertussis toxin promoter region [Presence] in Nasopharynx by BHAVANA with non-probe detection 12/02/2023 10:42:52 Negative Negative Final Chlamydophila pneumoniae DNA [Presence] in Nasopharynx by BHAVANA with non-probe detection 12/02/2023 10:42:52 Negative Negative Final Mycoplasma pneumoniae DNA [Presence] in Nasopharynx by BHAVANA with non-probe detection 12/02/2023 10:42:52 Negative Negative Final Bordetella parapertussis [id number] DNA [Presence] in Nasopharynx by BHAVANA with non-probe detection 12/02/2023 10:42:52 Negative Negative Final
The primers that detect Rhinovirus may cross react with some Enterorviruses. The validation of bronchial specimens, tracheal aspirates, and throats for this assay was developed and performance characteristics determined by [employer] The validation of alternate specimen types has not been cleared or approved by the U.S. Food and Drug Administration (FDA). It has been determined that such clearance or approval is not necessary. Performing Location LABORATORY [place] [address] [address] [facility] [address] [facility] [address]
--- OUTSIDE RECORDS SUMMARY | 2023-12-30 16:25 | External Medical Summary ---
Author Name Unknown Address Unknown Organization : Laboratory Report Ordering Provider Test Date Status RAO TAN 12/02/2023 18:01:03 Final Observation Date Value Abnormality Reference (Units ) Status Glucose Point of Care 12/02/2023 18:01:03 135 Above high normal 70-120 (mg/dL) Final Performing Location
--- OUTSIDE RECORDS SUMMARY | 2023-12-30 16:25 | External Medical Summary | Summary of Care ---
Author Name Unknown Organization [facility] Address [address] [place] [address] Phone [phone] Care Team Providers Care It Quality Analyst Name Role Phone Juan Dominique MD Primary Care Pr ovider Encounter Details Date Type Department Care Team (Latest Contact Info) Description 11/27/2023 10:15 AM EST - 11/27/2023 11:14 AM EST Hospital Encounter Radiology Film File [address] [place] [address] Discharge Disposition: Home - Self Care Allergies Active Allergy Reactions Criticality Noted Date Comments Felodipine High 11/15/2012 Other Reaction(s): hives Flunisolide 11/15/2012 Other Reaction(s): other Gabapentin High 07/16/2013 Other Reaction(s): Drowsy, GI SYMPTOMS Hydrochlorothiazide W-Triamterene 11/15/2012 Thiazide-Type Diuretics 07/21/2004 gout documented as of this encounter (statuses as of 12/02/2023) Medications Medication Sig Dispensed Refills Start Date End Date Status Pyridostigmine [place] 60 MG Oral Tablet (Mestinon) Take 0.5 [...] (Urocit-K) 1 Tablet. 0 07/26/2023 Suspended pyRIDostigmine [place] ER 180 MG Oral Tablet Extended Release (Mestinon Timespan) Take 1 Tablet by mouth in the morning. 0 Suspended Vitamin D (Ergocalciferol) 1.25 MG (88068 UT) Oral Capsule (Drisdol) Take 1 Capsule [...] ICD-10 update of inactive term LOC PRIM [id number] 07/23/2003 DIVERTICULOSIS OF COLON 01/22/2003 Gouty arthropathy [...] Date/Time Associated Diagnosis Comments RADIOLOGY EXAM - FLUOROSCOPY (IMAGES ONLY, NO REPORT) Routine 11/27/2023 10:15 AM EST documented in this encounter Results * RADIOLOGY EXAM - FLUOROSCOPY (IMAGES ONLY, NO REPORT) (11/27/2023 10:15 AM EST) 11/27/2023 10:1 4 AM EST Narrative Scheduling, Silent - 12/01/2023 9:18 PM EST This is an imaging study not interpreted or resulted by a [facility] or [facility] contracted radiologist. Hua Britton MD RAD FLUOROSCOPY documented in this encounter Advance Directives Latest [...] Advance Directives occurred with: Patient Care Teams It Quality Analyst Relationship Specialty Start Date End Date Juan Dominique MD [address] [place] [address] PCP - General Family Medicine 09/26/23 documented as of this encounter
--- OUTSIDE RECORDS SUMMARY | 2023-12-30 16:25 | External Medical Summary | Summary of Care ---
Author Name Unknown Organization [facility] Address [address] [place] [address] Phone [phone] Care Team Providers Care Meat And Poultry Inspector Name Role Phone Juan Dominique MD Primary Care Pr ovider Encounter Details Date Type Department Care Team (Latest Contact Info) Description 11/27/2023 11:15 AM EST - 11/27/2023 11:19 AM EST Hospital Encounter Radiology Film File [address] [place] [address] Discharge Disposition: Home - Self Care Allergies Active Allergy Reactions Criticality Noted Date Comments Felodipine High 11/15/2012 Other Reaction(s): hives Flunisolide 11/15/2012 Other Reaction(s): other Gabapentin High 07/16/2013 Other Reaction(s): Drowsy, GI SYMPTOMS Hydrochlorothiazide W-Triamterene 11/15/2012 Thiazide-Type Diuretics 07/21/2004 gout documented as of this encounter (statuses as of 12/02/2023) Medications Medication Sig Dispensed Refills Start Date End Date Status Pyridostigmine [place] 60 MG Oral Tablet (Mestinon) Take 0.5 [...] (Urocit-K) 1 Tablet. 0 07/26/2023 Suspended pyRIDostigmine [place] ER 180 MG Oral Tablet Extended Release (Mestinon Timespan) Take 1 Tablet by mouth in the morning. 0 Suspended Vitamin D (Ergocalciferol) 1.25 MG (57931 UT) Oral Capsule (Drisdol) Take 1 Capsule [...] ICD-10 update of inactive term LOC PRIM [id number] 07/23/2003 DIVERTICULOSIS OF COLON 01/22/2003 Gouty arthropathy [...] Date/Time Associated Diagnosis Comments RADIOLOGY EXAM - MRI (IMAGES ONLY, NO REPORT) Routine 11/27/2023 11:15 AM EST documented in this encounter Results * RADIOLOGY EXAM - MRI (IMAGES ONLY, NO REPORT) (11/27/2023 11:15 AM EST) 11/27/2023 11:1 1 AM EST Narrative Scheduling, Silent - 12/01/2023 9:12 PM EST This is an imaging study not interpreted or resulted by a [facility] or [facility] contracted radiologist. Hua Britton MD RAD MRI-MRA documented in this encounter Advance Directives Latest [...] Advance Directives occurred with: Patient Care Teams Meat And Poultry Inspector Relationship Specialty Start Date End Date Juan Dominique MD [address] [place] [address] PCP - General Family Medicine 09/26/23 documented as of this encounter
--- OUTSIDE RECORDS SUMMARY | 2023-12-30 16:25 | External Medical Summary | Summary of Care ---
Author Name Unknown Organization [facility] Address [address] [place] [address] Phone [phone] Care Team Providers Care Histology Technologist Name Role Phone Jaun Dominique MD Primary Care Pr ovider Encounter Details Date Type Department Care Team (Latest Contact Info) Description 11/28/2023 6:05 PM EST - 11/28/2023 11:59 PM EST Hospital Encounter Radiology Film File [address] [place] [address] Discharge Disposition: Home - Self Care Allergies Active Allergy Reactions Criticality Noted Date Comments Felodipine High 11/15/2012 Other Reaction(s): hives Flunisolide 11/15/2012 Other Reaction(s): other Gabapentin High 07/16/2013 Other Reaction(s): Drowsy, GI SYMPTOMS Hydrochlorothiazide W-Triamterene 11/15/2012 Thiazide-Type Diuretics 07/21/2004 gout documented as of this encounter (statuses as of 12/02/2023) Medications Medication Sig Dispensed Refills Start Date End Date Status Pyridostigmine [place] 60 MG Oral Tablet (Mestinon) Take 0.5 [...] (Urocit-K) 1 Tablet. 0 07/26/2023 Suspended pyRIDostigmine [place] ER 180 MG Oral Tablet Extended Release (Mestinon Timespan) Take 1 Tablet by mouth in the morning. 0 Suspended Vitamin D (Ergocalciferol) 1.25 MG (97116 UT) Oral Capsule (Drisdol) Take 1 Capsule [...] ICD-10 update of inactive term LOC PRIM [id number] 07/23/2003 DIVERTICULOSIS OF COLON 01/22/2003 Gouty arthropathy [...] Date/Time Associated Diagnosis Comments RADIOLOGY EXAM - CT (IMAGES ONLY, NO REPORT) Routine 11/28/2023 6:05 PM EST documented in this encounter Results * RADIOLOGY EXAM - CT (IMAGES ONLY, NO REPORT) (11/28/2023 6:05 PM EST) 11/28/2023 6:05 PM EST Narrative Scheduling, Silent - 12/01/2023 9:10 PM EST This is an imaging study not interpreted or resulted by a [facility] or [facility] contracted radiologist. Hua Britton MD RAD CT documented in this encounter Advance Directives Latest [...] Advance Directives occurred with: Patient Care Teams Histology Technologist Relationship Specialty Start Date End Date Juan Dominique MD [address] [place] [address] PCP - General Family Medicine 09/26/23 documented as of this encounter
--- OUTSIDE RECORDS SUMMARY | 2023-12-30 16:25 | External Medical Summary ---
Author Name Unknown Address Unknown Organization : Laboratory Report Ordering Provider Test Date Status RAO TAN 12/02/2023 11:53:25 Final Observation Date Value Abnormality Reference (Units ) Status Glucose Point of Care 12/02/2023 11:53:25 86 70-120 (mg/dL) Final Performing Location
--- OUTSIDE RECORDS SUMMARY | 2023-12-30 16:25 | External Medical Summary | Summary of Care ---
Author Name Unknown Organization [facility] Address [address] [place] [address] Phone [phone] Care Team Providers Care Foreign Language Teacher Name Role Phone Juan Dominique MD Primary Care Pr ovider Encounter Details Date Type Department Care Team (Latest Contact Info) Description 11/26/2023 3:15 AM EST - 11/26/2023 11:59 PM EST Hospital Encounter Radiology Film File [address] [place] [address] Discharge Disposition: Home - Self Care Allergies Active Allergy Reactions Criticality Noted Date Comments Felodipine High 11/15/2012 Other Reaction(s): hives Flunisolide 11/15/2012 Other Reaction(s): other Gabapentin High 07/16/2013 Other Reaction(s): Drowsy, GI SYMPTOMS Hydrochlorothiazide W-Triamterene 11/15/2012 Thiazide-Type Diuretics 07/21/2004 gout documented as of this encounter (statuses as of 12/02/2023) Medications Medication Sig Dispensed Refills Start Date End Date Status Pyridostigmine [place] 60 MG Oral Tablet (Mestinon) Take 0.5 [...] (Urocit-K) 1 Tablet. 0 07/26/2023 Suspended pyRIDostigmine [place] ER 180 MG Oral Tablet Extended Release (Mestinon Timespan) Take 1 Tablet by mouth in the morning. 0 Suspended Vitamin D (Ergocalciferol) 1.25 MG (82840 UT) Oral Capsule (Drisdol) Take 1 Capsule [...] ICD-10 update of inactive term LOC PRIM [id number] 07/23/2003 DIVERTICULOSIS OF COLON 01/22/2003 Gouty arthropathy [...] - CT (IMAGES ONLY, NO REPORT) Routine 11/26/2023 3:15 AM EST documented in this encounter Results * RADIOLOGY EXAM - CT (IMAGES ONLY, NO REPORT) (11/26/2023 3:15 AM EST) 11/26/2023 3:13 AM EST Narrative Scheduling, Silent - 12/01/2023 9:14 PM EST This is an imaging study not interpreted or resulted by a [facility]. Hua Britton MD RAD [...] Advance Directives occurred with: Patient Care Teams Foreign Language Teacher Relationship Specialty Start Date End Date Juan Dominique MD [address] [place] [address] PCP - General Family Medicine 09/26/23 documented as of this encounter
--- OUTSIDE RECORDS SUMMARY | 2023-12-30 16:25 | External Medical Summary ---
Author Name Unknown Address Unknown Organization : Laboratory Report Ordering Provider Test Date Status RAO TAN 12/02/2023 06:30:51 Final Observation Date Value Abnormality Reference (Units ) Status Glucose Point of Care 12/02/2023 06:30:51 131 Above high normal 70-120 (mg/dL) Final Performing Location
--- OUTSIDE RECORDS SUMMARY | 2023-12-30 16:25 | External Medical Summary ---
Author Name Unknown Address Unknown Organization : Laboratory Report Ordering Provider Test Date Status RAO TAN 12/02/2023 06:00:47 Final Observation Date Value Abnormality Reference (Units ) Status Glucose Point of Care 12/02/2023 06:00:47 80 70-120 (mg/dL) Final Performing Location
--- OUTSIDE RECORDS SUMMARY | 2023-12-30 16:25 | External Medical Summary | Summary of Care ---
Author Name Unknown Organization [facility] Address [address] [place] [address] Phone [phone] Care Team Providers Care Refinery Technician Name Role Phone Juan Dominique MD Primary Care Pr ovider Encounter Details Date Type Department Care Team (Late st Contact Info) Description 11/27/2023 Orders Only Neurology, [place] [address] [place] [address] Hua Britton MD [address] [place] [address] Allergies Active Allergy Reactions Criticality Noted Date Comments Felodipine High 11/15/2012 Other Reaction(s): hives Flunisolide 11/15/2012 Other Reaction(s): other Gabapentin High 07/16/2013 Other Reaction(s): Drowsy, GI SYMPTOMS Hydrochlorothiazide W-Triamterene 11/15/2012 Thiazide-Type Diuretics 07/21/2004 gout documented as of this encounter (statuses as of 12/01/2023) Medications Medication Sig Dispensed Refills Start Date End Date Status Pyridostigmine [place] 60 MG Oral Tablet (Mestinon) Take 0.5 [...] (Urocit-K) 1 Tablet. 0 07/26/2023 Suspended pyRIDostigmine [place] ER 180 MG Oral Tablet Extended Release (Mestinon Timespan) Take 1 Tablet by mouth in the morning. 0 Suspended Vitamin D (Ergocalciferol) 1.25 MG (53441 UT) Oral Capsule (Drisdol) Take 1 Capsule by mouth once a week. 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 Encephalopathy acute 11/30/2023 Dysphagia 11/30/2023 Traumatic subarachnoid hemorrhage 12/23/2021 Fall from standing 12/23/2021 Subarachnoid hemorrhage foll owing injury, no loss of consciousness 12/23/2021 Neck pain 12/23/2021 Irritable bowel syndrome 03/04/2005 BENIGN NEOPLASM LG BOWEL 12/13/2004 Other allergic rhinitis 08/28/2004 Overview: ICD-10 update of inactive term LOC PRIM [id number] 07/23/2003 DIVERTICULOSIS OF COLON 01/22/2003 Gouty arthropathy 05/11/2002 Overview: ICD-10 update of inactive term History of peptic ulcer disease Overview: ICD-10 update of inactive term GENERAL OSTEOARTHROSIS Major depressive disorder Overview: ICD-10 update of inactive term BENIGN HYPERTENSION PURE HYPERCHOLESTEROLEM documented as of this encounter (statuses as of 12/01/2023) Immunizations Name Administration Dates Next Due Seasonal [...] of 3 - Risk 3-dose series) 2002 GFR 11/30/2024 11/30/2023, 11/07, 05/29/2023, Additional history exists DTaP,Tdap,and Td Vaccines (2 [...] MRI (IMAGES ONLY, NO REPORT) Routine 11/27/2023 11:20 AM EST documented in this encounter Results * RADIOLOGY EXAM - MRI (IMAGES ONLY, NO REPORT) (11/27/2023 11:20 AM EST) 11/27/2023 11:1 1 AM EST Narrative Scheduling, Silent - 12/01/2023 9:22 PM EST This is an imaging study not interpreted or resulted by a [facility] or [email or web address] contracted radiologist. Hua Britton MD RAD MRI-MRA documented in this encounter Additional Health Concerns Infection Onset Date Last Indicated Resolved Time Respiratory Rule-Out 11/29/2023 11/30/2023 024 12:05 PM EST COVID-19 Rule-Out 11/29/2023 11/30/2023 11/29/2023 11:14 PM EST documented as of this encounter [...] Advance Directives occurred with: Patient Care Teams Refinery Technician Relationship Specialty Start Date End Date Juan Dominique MD [address] [place] [address] PCP - General Family Medicine 09/26/23 documented as of this encounter
--- OUTSIDE RECORDS SUMMARY | 2023-12-30 16:25 | External Medical Summary ---
Author Name Unknown Address Unknown Organization K01:[facility] [facility] [place] [address] [place] [address] Laboratory Report Ordering Provider Test Date Status JS HAMPTON 12/02/2023 02:31:18 Final Observation Date Value Abnormality Reference (Units) Status Bacteria identified in Specimen by Culture 12/02/2023 02:31:18 No significant growth Final Test: Culture, Urine, Quanti tative
Specimen Source: Urine, Catheter
Specimen Type: Urine
Specimen Date: 12/02/2023 2:31 AM
Result Date: 12/03/2023 7:59 AM
Result Status: Final result
Resulting Lab: [facility] [place]
[address]
[place] [id number]

CULTURE

No significant growth

null Performing Location [facility] [place] [address] [place] [address]
--- OUTSIDE RECORDS SUMMARY | 2023-12-30 16:25 | External Medical Summary ---
Author Name Unknown Address Unknown Organization K01:LABORATORY [facility] [place] - [address] [facility] Laboratory Report Ordering Provider Test Date Status JS HAMPTON 12/02/2023 04:04:00 Final Observation Date Value Abnormality Reference (Units ) Status Bacteria identified in Specimen by Culture 12/02/2023 04:04:00 No growth Final Test: Culture, Blood (Site 2)
Specimen Source: Blood, Venous
Specimen Type: Blood
Specimen Date: 12/02/2023 4:04 AM
Result Date: 12/07/2023 6:01 AM
Result Status: Final result
Resulting Lab: LABORATORY [facility] [place]
[address]
[place] [address]

CULTURE

No growth

null Performing Location LABORATORY [facility] [place] - [address] [place] [address]
--- OUTSIDE RECORDS SUMMARY | 2023-12-30 16:25 | External Medical Summary | Summary of Care ---
Author Name Unknown Organization [facility] Address [address] [place] [address] Phone [phone] Care Team Providers Care Membership Sales Advisor Name Role Phone Juan Dominique MD Primary Care Pr ovider Encounter Details Date Type Department Care Team (Latest Contact Info) Description 11/29/2023 8:15 AM EST - 11/29/2023 12:04 PM [facility] Hospital Encounter Radiology Film File [address] [place] [address] Arrived Discharge Disposition: Home - Self Care Allergies Active Allergy Reactions Criticality Noted Date Comments Felodipine High 11/15/2012 Other Reaction(s): hives Flunisolide 11/15/2012 Other Reaction(s): other Gabapentin High 07/16/2013 Other Reaction(s): Drowsy, GI SYMPTOMS Hydrochlorothiazide W-Triamterene 11/15/2012 Thiazide-Type Diuretics 07/21/2004 gout documented as of this encounter (statuses as of 12/02/2023) Medications Medication Sig Dispensed Refills Start Date End Date Status Pyridostigmine [place] 60 MG Oral Tablet (Mestinon) Take 0.5 [...] (Urocit-K) 1 Tablet. 0 07/26/2023 Suspended pyRIDostigmine [place] ER 180 MG Oral Tablet Extended Release (Mestinon Timespan) Take 1 Tablet by mouth in the morning. 0 Suspended Vitamin D (Ergocalciferol) 1.25 MG (03537 UT) Oral Capsule (Drisdol) Take 1 Capsule [...] ICD-10 update of inactive term LOC PRIM [id number] 07/23/2003 DIVERTICULOSIS OF COLON 01/22/2003 Gouty arthropathy [...] - GENERAL RAD (IMAGES ONLY,NO REPORT) Routine 11/29/2023 8:15 AM EST documented in this encounter Results * RADIOLOGY EXAM - GENERAL RAD (IMAGES ONLY,NO REPORT) (11/29/2023 8:15 AM EST) 11/29/2023 8:15 AM EST Narrative Scheduling, Silent - 12/01/2023 9:06 PM EST This is an imaging study not interpreted or resulted by a [facility] or [facility] contracted radiologist. Hua Britton MD RADIOLOGY (RAD [...] Advance Directives occurred with: Patient Care Teams Membership Sales Advisor Relationship Specialty Start Date End Date Juan Dominique MD [address] [facility], [place] [address] PCP - General Family Medicine 09/26/23 documented as of this encounter
--- OUTSIDE RECORDS SUMMARY | 2023-12-30 16:25 | External Medical Summary ---
Author Name Unknown Address Unknown Organization : Laboratory Report Ordering Provider Test Date Status RAO TAN 12/03/2023 00:32:05 Final Observation Date Value Abnormality Reference (Units ) Status Glucose Point of Care 12/03/2023 00:32:05 127 Above high normal 70-120 (mg/dL) Final Performing Location
--- OUTSIDE RECORDS SUMMARY | 2023-12-30 16:25 | External Medical Summary ---
Author Name Unknown Address Unknown Organization K01:LABORATORY [facility] [place] - [address] [facility] Laboratory Report Ordering Provider Test Date Status JS HAMPTON 12/02/2023 03:58:00 Final Observation Date Value Abnormality Reference (Units ) Status Bacteria identified in Specimen by Culture 12/02/2023 03:58:00 No growth Final Test: Culture, Blood
Sp ecimen Source: Blood, Venous
Specimen Type: Blood
Specimen Date: 12/02/2023 3:58 AM
Result Date: 12/07/2023 7:01 AM
Result Status: Final result
Resulting Lab: LABORATORY [facility]
[address]
[place] [address]

CULTURE

No growth

null Performing Location LABORATORY [facility] - [address] [place] [address]
--- OUTSIDE RECORDS SUMMARY | 2023-12-30 16:25 | External Medical Summary ---
Author Name Unknown Address Unknown Organization K01:[facility]OR[facility]ORY [facility] [place] [facility] [address] [facility] [place] [address] Laboratory Report Ordering Provider Test Date Status JS HAMPTON 12/02/2023 02:31:18 Final Observation Date Value Abnormality Reference (Units ) Status Color of Urine by Auto 12/02/2023 02:31:18 Light Yellow Colorless, Light Yellow, Yellow, Dark Yellow Final Clarity, Urine 12/02/2023 02:31:18 Clear Clear Final Glucose [Mass/volume] in Urine by Automated test strip 12/02/2023 02:31:18 Negative Negative (mg/dL) Final Bilirubin.total [Presence] in Urine by Automated test strip 12/02/2023 02:31:18 Negative Negative Final Ketones [Mass/volume] in Urine by Automated test strip 12/02/2023 02:31:18 15 Abnormal Negative (mg/dL) Final Specific gravity, Urine 12/02/2023 02:31:18 1.019 1.003-1.030 Final Hemoglobin [Presence] in Urine by Automated test strip 12/02/2023 02:31:18 Large Abnormal Negative Final pH, Urine 12/02/2023 02:31:18 6.0 5.0-7.5 (Units) Final Protein [Mass/volume] in Urine by Automated test strip 12/02/2023 02:31:18 Negative Negative (mg/dL) Final Urobilinogen [Mass/volume] in Urine by Automated test strip 12/02/2023 02:31:18 Normal Normal (mg/dL) Final Nitrite [Presence] in Urine by Automated test strip 12/02/2023 02:31:18 Negative Negative Final Leukocyte esterase [Presence] in Urine by Automated test strip 12/02/2023 02:31:18 Trace Abnormal Negative Final RBC, Urine 12/02/2023 02:31:18 50+ Abnormal 0-2 (/HPF) Final WBC, Urine 12/02/2023 02:31:18 10-19 Abnormal 0-2 (/HPF) Final Bacteria [#/area] in Urine sediment by Microscopy high power field 12/02/2023 02:31:18 0-25 0-25 (/HPF) Final CULTURE, URINE - [facility] 12/02/2023 02:31:18 Final Quantitative urine culture t o be performed Performing Location LABORATORY [facility] [place] - [facility] [address] [facility] [address]
--- OUTSIDE RECORDS SUMMARY | 2023-12-30 16:25 | External Medical Summary ---
Author Name Unknown Address Unknown Organization : Laboratory Report Ordering Provider Test Date Status RAO TAN 12/02/2023 23:54:48 Final Observation Date Value Abnormality Reference (Units ) Status Glucose Point of Care 12/02/2023 23:54:48 77 70-120 (mg/dL) Final Performing Location
--- OUTSIDE RECORDS SUMMARY | 2023-12-30 16:25 | External Medical Summary | Summary of Care ---
Author Name Unknown Organization [facility] Address [address] [place] [address] Phone [phone] Care Team Providers Care Virtual Reality Specialist Name Role Phone Juan Dominique MD Primary Care Pr ovider Encounter Details Date Type Department Care Team (Latest Contact Info) Description 11/28/2023 2:55 PM EST - 11/28/2023 6:04 PM EST Hospital Encounter Radiology Film File [address] [place] [address] Discharge Disposition: Home - Self Care Allergies Active Allergy Reactions Criticality Noted Date Comments Felodipine High 11/15/2012 Other Reaction(s): hives Flunisolide 11/15/2012 Other Reaction(s): other Gabapentin High 07/16/2013 Other Reaction(s): Drowsy, GI SYMPTOMS Hydrochlorothiazide W-Triamterene 11/15/2012 Thiazide-Type Diuretics 07/21/2004 gout documented as of this encounter (statuses as of 12/02/2023) Medications Medication Sig Dispensed Refills Start Date End Date Status Pyridostigmine [place] 60 MG Oral Tablet (Mestinon) Take 0.5 [...] (Urocit-K) 1 Tablet. 0 07/26/2023 Suspended pyRIDostigmine [place] ER 180 MG Oral Tablet Extended Release (Mestinon Timespan) Take 1 Tablet by mouth in the morning. 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 Hua Britton MD RADIOLOGY (RAD [...] Advance Directives occurred with: Patient Care Teams Virtual Reality Specialist Relationship Specialty Start Date End Date Juan Dominique MD [address] [facility], [place] [address] PCP - General Family Medicine 09/26/23 documented as of this encounter
--- OUTSIDE RECORDS SUMMARY | 2023-12-30 16:25 | External Medical Summary | Summary of Care ---
Author Name Unknown Organization [facility] Address [address] [place] [address] Phone [phone] Care Team Providers Care Flight Operations Inspector Name Role Phone Juan Dominique MD Primary Care Pr ovider Encounter Details Date Type Department Care Team (Late st Contact Info) Description 11/29/2023 Orders Only Neurology, [place] [address] [place] [address] Hua Britton MD [address] [place] [address] Allergies Active Allergy Reactions Criticality Noted Date Comments Felodipine High 11/15/2012 Other Reaction(s): hives Flunisolide 11/15/2012 Other Reaction(s): other Gabapentin High 07/16/2013 Other Reaction(s): Drowsy, GI SYMPTOMS Hydrochlorothiazide W-Triamterene 11/15/2012 Thiazide-Type Diuretics 07/21/2004 gout documented as of this encounter (statuses as of 12/01/2023) Medications Medication Sig Dispensed Refills Start Date End Date Status Pyridostigmine [place] 60 MG Oral Tablet (Mestinon) Take 0.5 [...] (Urocit-K) 1 Tablet. 0 07/26/2023 Suspended pyRIDostigmine [place] ER 180 MG Oral Tablet Extended Release (Mestinon Timespan) Take 1 Tablet by mouth in the morning. 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 Hua Britton MD RAD CT documented in this encounter Additional Health Concerns [...] Advance Directives occurred with: Patient Care Teams Flight Operations Inspector Relationship Specialty Start Date End Date Juan Dominique MD [address] [facility] [place] [place] [address] PCP - General Family Medicine 09/26/23 documented as of this encounter
--- OUTSIDE RECORDS SUMMARY | 2023-12-30 16:25 | External Medical Summary | Summary of Care ---
Author Name Unknown Organization [facility] Address [address] [place] [address] Phone [phone] Care Team Providers Care Door Cutter Name Role Phone Juan Dominique MD Primary Care Pr ovider Encounter Details Date Type Department Care Team (Latest Contact Info) Description 11/27/2023 11:20 AM EST - 11/27/2023 11:59 PM EST Hospital Encounter Radiology Film File [address] [place] [address] Discharge Disposition: Home - Self Care Allergies Active Allergy Reactions Criticality Noted Date Comments Felodipine High 11/15/2012 Other Reaction(s): hives Flunisolide 11/15/2012 Other Reaction(s): other Gabapentin High 07/16/2013 Other Reaction(s): Drowsy, GI SYMPTOMS Hydrochlorothiazide W-Triamterene 11/15/2012 Thiazide-Type Diuretics 07/21/2004 gout documented as of this encounter (statuses as of 12/02/2023) Medications Medication Sig Dispensed Refills Start Date End Date Status Pyridostigmine [place] 60 MG Oral Tablet (Mestinon) Take 0.5 [...] (Urocit-K) 1 Tablet. 0 07/26/2023 Suspended pyRIDostigmine [place] ER 180 MG Oral Tablet Extended Release (Mestinon Timespan) Take 1 Tablet by mouth in the morning. 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 Hua Britton MD RAD MRI-MRA [...] Advance Directives occurred with: Patient Care Teams Door Cutter Relationship Specialty Start Date End Date Juan Dominique MD [address] [place] [address] PCP - General Family Medicine 09/26/23 documented as of this encounter
--- OUTSIDE RECORDS SUMMARY | 2023-12-30 16:25 | External Medical Summary | Summary of Care ---
Author Name Unknown Organization [facility] Address [address] [place] [address] Phone [phone] Care Team Providers Care General Agent Name Role Phone Juan Dominique MD Primary Care Pr ovider Encounter Details Date Type Department Care Team (Latest Contact Info) Description 11/29/2023 12:05 PM EST - 11/29/2023 12:09 PM [facility] Hospital Encounter Radiology Film File [address] [place] [address] Arrived Discharge Disposition: Home - Self Care Allergies Active Allergy Reactions Criticality Noted Date Comments Felodipine High 11/15/2012 Other Reaction(s): hives Flunisolide 11/15/2012 Other Reaction(s): other Gabapentin High 07/16/2013 Other Reaction(s): Drowsy, GI SYMPTOMS Hydrochlorothiazide W-Triamterene 11/15/2012 Thiazide-Type Diuretics 07/21/2004 gout documented as of this encounter (statuses as of 12/02/2023) Medications Medication Sig Dispensed Refills Start Date End Date Status Pyridostigmine [place] 60 MG Oral Tablet (Mestinon) Take 0.5 [...] (Urocit-K) 1 Tablet. 0 07/26/2023 Suspended pyRIDostigmine [place] ER 180 MG Oral Tablet Extended Release (Mestinon Timespan) Take 1 Tablet by mouth in the morning. 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 Hua Britton MD RAD [...] Advance Directives occurred with: Patient Care Teams General Agent Relationship Specialty Start Date End Date Juan Dominique MD [address] [place] [address] PCP - General Family Medicine 09/26/23 documented as of this encounter
--- OUTSIDE RECORDS SUMMARY | 2023-12-30 16:25 | External Medical Summary ---
Author Name Unknown Address Unknown Organization : Laboratory Report Ordering Provider Test Date Status RAO TAN 12/02/2023 17:01:52 Final Observation Date Value Abnormality Reference (Units ) Status Glucose Point of Care 12/02/2023 17:01:52 81 70-120 (mg/dL) Final Performing Location
--- OUTSIDE RECORDS SUMMARY | 2023-12-30 16:25 | External Medical Summary | Summary of Care ---
Author Name Unknown Organization [facility] Address [address] [place] [address] Phone [phone] Care Team Providers Care Photographic Process Worker Name Role Phone Juan Dominique MD Primary Care Pr ovider Encounter Details Date Type Department Care Team (Latest Contact Info) Description 11/29/2023 12:10 PM EST - 11/29/2023 8:43 PM EST Hospital Encounter Radiology Film File [address] [place] [address] Arrived Discharge Disposition: Home - Self Care Allergies Active Allergy Reactions Criticality Noted Date Comments Felodipine High 11/15/2012 Other Reaction(s): hives Flunisolide 11/15/2012 Other Reaction(s): other Gabapentin High 07/16/2013 Other Reaction(s): Drowsy, GI SYMPTOMS Hydrochlorothiazide W-Triamterene 11/15/2012 Thiazide-Type Diuretics 07/21/2004 gout documented as of this encounter (statuses as of 12/02/2023) Medications Medication Sig Dispensed Refills Start Date End Date Status Pyridostigmine [place] 60 MG Oral Tablet (Mestinon) Take 0.5 [...] (Urocit-K) 1 Tablet. 0 07/26/2023 Suspended pyRIDostigmine [place] ER 180 MG Oral Tablet Extended Release (Mestinon Timespan) Take 1 Tablet by mouth in the morning. 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 Hua Britton MD RAD CT [...] Advance Directives occurred with: Patient Care Teams Photographic Process Worker Relationship Specialty Start Date End Date Juan Dominique MD [address] [place] [address] PCP - General Family Medicine 09/26/23 documented as of this encounter
--- OUTSIDE RECORDS SUMMARY | 2023-12-30 16:25 | External Medical Summary | Summary of Care ---
Author Name Unknown Organization [facility] Address [address] [place] [address] Phone [phone] Care Team Providers Care Pearl Technician Name Role Phone Juan Dominique MD Primary Care Pr ovider Encounter Details Date Type Department Care Team (Late st Contact Info) Description 11/27/2023 Orders Only Neurology, [place] [address] [place] [address] Hua Britton MD [address] [place] [address] Allergies Active Allergy Reactions Criticality Noted Date Comments Felodipine High 11/15/2012 Other Reaction(s): hives Flunisolide 11/15/2012 Other Reaction(s): other Gabapentin High 07/16/2013 Other Reaction(s): Drowsy, GI SYMPTOMS Hydrochlorothiazide W-Triamterene 11/15/2012 Thiazide-Type Diuretics 07/21/2004 gout documented as of this encounter (statuses as of 12/01/2023) Medications Medication Sig Dispensed Refills Start Date End Date Status Pyridostigmine [place] 60 MG Oral Tablet (Mestinon) Take 0.5 [...] (Urocit-K) 1 Tablet. 0 07/26/2023 Suspended pyRIDostigmine [place] ER 180 MG Oral Tablet Extended Release (Mestinon Timespan) Take 1 Tablet by mouth in the morning. 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 Hua Britton MD RAD FLUOROSCOPY documented in this encounter Additional Health Concerns [...] Advance Directives occurred with: Patient Care Teams Pearl Technician Relationship Specialty Start Date End Date Juan Dominique MD [address] [facility] [place] [address] PCP - General Family Medicine 09/26/23 documented as of this encounter
--- OUTSIDE RECORDS SUMMARY | 2023-12-30 16:25 | External Medical Summary ---
Author Name Unknown Address Unknown Organization K01:LABORATORY [facility] [place] - [address] [place] [address] Laboratory Report Ordering Provider Test Date Status JS SKINNER 12/02/2023 10:13:00 Final Observation Date Value Abnormality Reference (Units ) Status BUN 12/02/2023 10:13:00 16 6-20 (mg/dL) Final Creatinine 12/02/2023 10:13:00 1.2 0.6-1.2 (mg/dL) Final Glomerular filtration rate/1.73 sq M.predicted [Volume Rate/Area] in Serum, Plasma or Blood by Creatinine-based formula (CKD-EPI) 12/02/2023 10:13:00 60 >=60 (mL/min) Final eGFR is calculated based on the CKD-EPI 2020 equation SODIUM 12/02/2023 10:13:00 139 135-146 (m mol/L) Final Potassium 12/02/2023 10:13:00 4.0 3.5-5.1 (m mol/L) Final Cl 12/02/2023 10:13:00 107 98-107 (mm ol/L) Final CO2 12/02/2023 10:13:00 21 Below low normal 22- 32 (mmol/L) Final Anion gap 12/02/2023 10:13:00 11 7-15 (mmol /L) Final Glucose 12/02/2023 10:13:00 92 70-120 (mg /dL) Final Albumin 12/02/2023 10:13:00 3.3 Below low normal 3.8 -5.0 (g/dL) Final AST (Aspartate aminotransferase) 12/02/2023 10:13:00 26 10-50 (U/L) Fin al Alk Phos 12/02/2023 10:13:00 65 35-130 (U/ L) Final Bilirubin, Total 12/02/2023 10:13:00 2.2 Above high no rmal <=1.2 (mg/dL) Final Calcium 12/02/2023 10:13:00 8.7 8.4-10.2 ( mg/dL) Final Protein 12/02/2023 10:13:00 6.5 6.0-8.3 (g /dL) Final ALT (Alanine aminotransferase) 12/02/2023 10:13:00 15 10-50 (U/L) Juan Manuel honeycutt Performing Location LABORATORY [facility] [place] - [address] [facility] [address]
--- OUTSIDE RECORDS SUMMARY | 2023-12-30 16:25 | External Medical Summary ---
Author Name Unknown Address Unknown Organization K01:[facility] [place] [address] [place] [address] Laboratory Report Ordering Provider Test Date Status JS SKINNER 12/02/2023 10:13:00 Final Observation Date Value Abnormality Reference (Units ) Status WBC, Total 12/02/2023 10:13:00 7.91 4.00-10.80 (K/uL) Final RBC 12/02/2023 10:13:00 4.26 4.50-5.25 (M/uL) Final Hemoglobin 12/02/2023 10:13:00 12.7 Below low normal 14.0-16.8 (g/dL) Final HCT 12/02/2023 10:13:00 40.0 40.0-48.4 (%) Final MCV 12/02/2023 10:13:00 93.9 82.0-99.5 (fL) Final MCH 12/02/2023 10:13:00 29.8 27.0-34.0 (pg) Final MCHC 12/02/2023 10:13:00 31.8 32.0-36.0 (g/dL) Final RDW 12/02/2023 10:13:00 15.4 11.5-15.5 (%) Final Platelets 12/02/2023 10:13:00 124 Below low normal 140-400 (K/uL) Final MPV 12/02/2023 10:13:00 11.8 6.6-11.1 (fL) Final Nucleated erythrocytes/100 leukocytes [Ratio] in Blood by Automated count 12/02/2023 10:13:00 0 <=0 (/100 WBCs) Final Performing Location LABORATORY C - [address] [place] [address]
--- OUTSIDE RECORDS SUMMARY | 2023-12-30 16:26 | External Medical Summary ---
Author Name Unknown Address Unknown Organization K01:[facility] [place] - [address] [facility] [address] Laboratory Report Ordering Provider Test Date Status SALLY VILLARREAL 11/30/2023 17:29:00 Final Results should always be int erpreted in conjunction with other clinical, laboratory, and epidemiological information. In the case of bacterial targets, please correlate with corresponding culture and Gram stain of the CSF. Observation Date Value Abnormality Reference (Units ) Status Escherichia coli K1 DNA [Presence] in Cerebral spinal fluid by BHAVANA with non-probe detection 11/30/2023 17:29:00 Negative Negative Final Only E. coli strains possess ing the K1 capsular antigen will be detected.
All other E. coli strains/serotypes will NOT be detected. Haemophilus influenzae DNA [ Presence] in Cerebral spinal fluid by BHAVANA with non-probe detection 11/30/2023 17:29:00 Negative Negative F inal Listeria monocytogenes DNA [ Presence] in Cerebral spinal fluid by BHAVANA with non-probe detection 11/30/2023 17:29:00 Negative Negative F inal Neisseria meningitidis DNA [ Presence] in Cerebral spinal fluid by BHAVANA with non-probe detection 11/30/2023 17:29:00 Negative Negative F inal Only encapsulated strains of N. meningitidis will be detected. Unencapsulated N. meningitidis will not be detected. Streptococcus agalactiae DNA [Presence] in Cerebral spinal fluid by BHAVANA with non-probe detection 11/30/2023 17:29:00 Negative Negative F inal Streptococcus pneumoniae DNA [Presence] in Cerebral spinal fluid by BHAVANA with non-probe detection 11/30/2023 17:29:00 Negative Negative F inal Cytomegalovirus DNA [Presenc e] in Cerebral spinal fluid by BHAVANA with non-probe detection 11/30/2023 17:29:00 Negative Negative F inal Enterovirus RNA [Presence] i n Cerebral spinal fluid by BHAVANA with non-probe detection 11/30/2023 17:29:00 Negative Negative Final Herpes simplex virus 1 DNA [ Presence] in Cerebral spinal fluid by BHAVANA with non-probe detection 11/30/2023 17:29:00 Negative Negative F inal Herpes simplex virus 2 DNA [ Presence] in Cerebral spinal fluid by BHAVANA with non-probe detection 11/30/2023 17:29:00 Negative Negative F inal Herpes virus 6 DNA [Presence ] in Cerebral spinal fluid by BHAVANA with non-probe detection 11/30/2023 17:29:00 Negative Negative F inal Parechovirus A RNA [Presence ] in Cerebral spinal fluid by BHAVANA with non-probe detection 11/30/2023 17:29:00 Negative Negative F inal Varicella zoster virus DNA [ Presence] in Cerebral spinal fluid by BHAVANA with non-probe detection 11/30/2023 17:29:00 Negative Negative F inal Cryptococcus gattii+neoforma ns DNA [Presence] in Cerebral spinal fluid by BHAVANA with non-probe detection 11/30/2023 17:29:00 Negative Negat verna Final Detection of Cryptococcus ne oformans/gattii is variable at low density. Cryptococcal Antigen testing is recommended if Cryptococcal meningitis is suspected. Performing Location [facility] [place] - [address] [facility] [address]
--- OUTSIDE RECORDS SUMMARY | 2023-12-30 16:26 | External Medical Summary ---
Author Name Unknown Address Unknown Organization : Laboratory Report Ordering Provider Test Date Status JS HAMPTON 11/30/2023 01:26:00 Final Observation Date Value Abnormality Reference (Units ) Status METHYLMALONIC ACID 11/30/2023 01:26:00 112 8 7-318 (nmol/L) Final This test was developed and its analytical performance
characteristics have been determined by [employer] [place], [place]. It has
not been cleared or approved by the U.S. Food and Drug
Administration. This assay has been validated pursuant
to the CLIA regulations and is used for clinical
purposes.

Test Performed at:
[facility]
[address] [place] [address]
Rey Tripathi M.D., Ph.D.,Director of Laboratories Performing Location
--- OUTSIDE RECORDS SUMMARY | 2023-12-30 16:26 | External Medical Summary ---
Author Name Unknown Address Unknown Organization K01:[facility] [place] [address] [place] [address] Laboratory Report Ordering Provider Test Date Status JS HAMPTON 11/30/2023 05:27:00 Final Observation Date Value Abnormality Reference (Units ) Status Cortisol 11/30/2023 05:27:00 11.2 2.5-19.5 ( ug/dL) Final AM Reference Range: 4.8 - 19 .5 ug/dL
PM Reference Range: 2.5 - 11.9 ug/dL Performing Location [facility] [place] [address] [place] [address]
--- OUTSIDE RECORDS SUMMARY | 2023-12-30 16:26 | External Medical Summary ---
Author Name Unknown Address Unknown Organization K01:[facility] [place] [address] [facility] [address] Laboratory Report Ordering Provider Test Date Status JS HAMPTON 11/30/2023 05:27:00 Final Observation Date Value Abnormality Reference (Units ) Status HbA1C 11/30/2023 05:27:00 6.0 Above high normal 4. 0-5.6 (%) Final The use of HbA1c to monitor glycemic status is based on normal hemoglobin and HbA composition. This test should not be used in patients with abnormal hemoglobin that affects the half life of the red blood cell or the in vivo glycation rates. Glucose, estimated average 11/30/2023 05:27:00 126 Above high normal <126 (mg/dL) Juan Manuel honeycutt Performing Location [facility] [place] [address] [facility] [address]
--- OUTSIDE RECORDS SUMMARY | 2023-12-30 16:26 | External Medical Summary ---
Author Name Unknown Address Unknown Organization K01:[facility] [place] - [address] [place] [address] [place] [address] Laboratory Report Ordering Provider Test Date Status JS HAMPTON 11/29/2023 22:07:00 Final Observation Date Value Abnormality Reference (Units ) Status TSH 11/29/2023 22:07:00 13.00 Above high normal 0. 27-4.20 (uIU/mL) Final Performing Location [facility] [place] - [address] [place] [address]
--- OUTSIDE RECORDS SUMMARY | 2023-12-30 16:26 | External Medical Summary ---
Author Name Unknown Address Unknown Organization : Laboratory Report Ordering Provider Test Date Status RAO TAN 12/01/2023 23:56:49 Final Observation Date Value Abnormality Reference (Units ) Status Glucose Point of Care 12/01/2023 23:56:49 71 70-120 (mg/dL) Final Performing Location
--- OUTSIDE RECORDS SUMMARY | 2023-12-30 16:26 | External Medical Summary ---
Author Name Unknown Address Unknown Organization : Laboratory Report Ordering Provider Test Date Status RAO TAN 11/30/2023 13:29:20 Final Observation Date Value Abnormality Reference (Units ) Status Glucose Point of Care 11/30/2023 13:29:20 87 70-120 (mg/dL) Final Performing Location
--- OUTSIDE RECORDS SUMMARY | 2023-12-30 16:26 | External Medical Summary ---
Author Name Unknown Address Unknown Organization K01:[facility] [facility] [place] [address] [place] [address] [place] [address] Laboratory Report Ordering Provider Test Date Status JS HAMPTON 11/30/2023 01:26:00 Final Observation Date Value Abnormality Reference (Units ) Status HIV 1+2 Ab+HIV1 p24 Ag [Presence] in Serum or Plasma by Immunoassay 11/30/2023 01:26:00 Negative Negative Final Negative HIV-1/2 antigen and antibody screening tset results usually indicate the absence of HIV-1 and HIV-2 infection. However, such negative results do not rule-out acute HIV infection. If acute HIV-1 infection is highly suspected, it is recommended that a specimen be submitted for detection of HIV-1 RNA. Performing Location [facility] [place] [address] [place] [address]
--- OUTSIDE RECORDS SUMMARY | 2023-12-30 16:26 | External Medical Summary ---
Author Name Unknown Address Unknown Organization K01:LABORATORY [facility] [place] - [address] [facility] [place] [place] [address] Laboratory Report Ordering Provider Test Date Status JS HAMPTON 11/29/2023 23:29:26 Final Observation Date Value Abnormality Reference (Units) Status Color of Urine by Auto 11/29/2023 23:29:26 Light Yellow Colorless, Light Yellow, Yellow, Dark Yellow Final Clarity, Urine 11/29/2023 23:29:26 Clear Clear Final Glucose [Mass/volume] in Urine by Automated test strip 11/29/2023 23:29:26 Negative Negative (mg/dL) Final Bilirubin.total [Presence] in Urine by Automated test strip 11/29/2023 23:29:26 Negative Negative Final Ketones [Mass/volume] in Urine by Automated test strip 11/29/2023 23:29:26 Negative Negative (mg/dL) Final Specific gravity, Urine 11/29/2023 23:29:26 1.042 Above high normal 1.003-1.030 Final Hemoglobin [Presence] in Urine by Automated test strip 11/29/2023 23:29:26 Trace Abnormal Negative Final pH, Urine 11/29/2023 23:29:26 5.5 5.0-7.5 (Units) Final Protein [Mass/volume] in Urine by Automated test strip 11/29/2023 23:29:26 Negative Negative (mg/dL) Final Urobilinogen [Mass/volume] in Urine by Automated test strip 11/29/2023 23:29:26 Normal Normal (mg/dL) Final Nitrite [Presence] in Urine by Automated test strip 11/29/2023 23:29:26 Negative Negative Final Leukocyte esterase [Presence] in Urine by Automated test strip 11/29/2023 23:29:26 Trace Abnormal Negative Final RBC, Urine 11/29/2023 23:29:26 0-2 0-2 (/HPF) Final WBC, Urine 11/29/2023 23:29:26 3-5 Abnormal 0-2 (/HPF) Final Bacteria [#/area] in Urine sediment by Microscopy high power field 11/29/2023 23:29:26 0-25 0-25 (/HPF) Final CULTURE, URINE - ISINGER 11/29/2023 23:29:26 Final Culture not indicated by uri nalysis results\[id number]\ Performing Location LAB[facility]ORY [facility] [place] - [facility] [address] [facility] [address]
--- OUTSIDE RECORDS SUMMARY | 2023-12-30 16:26 | External Medical Summary ---
Author Name Unknown Address Unknown Organization K01:[facility] [place] [facility] [address] [place] [address] Laboratory Report Ordering Provider Test Date Status JOSE ALBERTO ELAINE 11/30/2023 17:29:00 Final Some reference ranges and ot her method performance specifications have not been established for this fluid. The test results must be integrated into the clinical context for interpretation. Observation Date Value Abnormality Reference (Units ) Status CSF, color 11/30/2023 17:29:00 Colorless Colorless Final CSF, clarity 11/30/2023 17:29:00 Clear Clear Final Color of Spun Cerebral spinal fluid 11/30/2023 17:29:00 Colorless Colorless Final Tube number of Cerebral spinal fluid 11/30/2023 17:29:00 3 Final Nucleated cells [#/volume] in Body fluid by Automated count 11/30/2023 17:29:00 2 <5 (cells/uL) Final Erythrocytes [#/volume] in Cerebral spinal fluid 11/30/2023 17:29:00 4 <5 (cells/uL) Final Performing Location [facility] [place] [address] [place] [address]
--- OUTSIDE RECORDS SUMMARY | 2023-12-30 16:26 | External Medical Summary ---
Author Name Unknown Address Unknown Organization : Laboratory Report Ordering Provider Test Date Status RAO TAN 11/30/2023 06:22:01 Final Observation Date Value Abnormality Reference (Units ) Status Glucose Point of Care 11/30/2023 06:22:01 76 70-120 (mg/dL) Final Performing Location
--- OUTSIDE RECORDS SUMMARY | 2023-12-30 16:26 | External Medical Summary | Summary of Care ---
Author Name Unknown Organization [facility] Address [address] [place] [address] Phone [phone] Care Team Providers Care Flow Floor Attendant Name Role Phone Juan Dominique MD Primary Care Pr ovider Encounter Details Date Type Department Care Team (Late st Contact Info) Description 11/26/2023 Orders Only Neurology, [place] [address] [place] [address] Hua Britton MD [address] [place] [address] Allergies Active Allergy Reactions Criticality Noted Date Comments Felodipine High 11/15/2012 Other Reaction(s): hives Flunisolide 11/15/2012 Other Reaction(s): other Gabapentin High 07/16/2013 Other Reaction(s): Drowsy, GI SYMPTOMS Hydrochlorothiazide W-Triamterene 11/15/2012 Thiazide-Type Diuretics 07/21/2004 gout documented as of this encounter (statuses as of 12/01/2023) Medications Medication Sig Dispensed Refills Start Date End Date Status Pyridostigmine [place] 60 MG Oral Tablet (Mestinon) Take 0.5 [...] (Urocit-K) 1 Tablet. 0 07/26/2023 Suspended pyRIDostigmine [place] ER 180 MG Oral Tablet Extended Release (Mestinon Timespan) Take 1 Tablet by mouth in the morning. 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 Hua Britton MD RADIOLOGY (RAD GENER AL) documented in this encounter Additional Health Concerns [...] Advance Directives occurred with: Patient Care Teams Flow Floor Attendant Relationship Specialty Start Date End Date Juan Dominique MD [address] [place] [address] PCP - General Family Medicine 09/26/23 documented as of this encounter
--- OUTSIDE RECORDS SUMMARY | 2023-12-30 16:26 | External Medical Summary ---
Author Name Unknown Address Unknown Organization K01:[facility] [place] [address] [place] [address] Laboratory Report Ordering Provider Test Date Status JS HAMPTON 11/30/2023 01:26:00 Final Observation Date Value Abnormality Reference (Units ) Status Reagin Ab [Presence] in Serum by RPR 11/30/2023 01:26:00 Nonreactive Nonreactive Final Performing Location [facility] [place] [address] [place] [address]
--- OUTSIDE RECORDS SUMMARY | 2023-12-30 16:26 | External Medical Summary ---
Author Name Unknown Address Unknown Organization K01:[facility] [place] [address] [place] [address] Laboratory Report Ordering Provider Test Date Status JS HAMPTON 11/30/2023 01:26:00 Final Observation Date Value Abnormality Reference (Units ) Status Thyroperoxidase Ab [Units/volume] in Serum or Plasma by Immunoassay 11/30/2023 01:26:00 8.1 <34.0 (IU/mL) Final Performing Location [facility] [place] [address] [place] [address]
--- OUTSIDE RECORDS SUMMARY | 2023-12-30 16:26 | External Medical Summary ---
Author Name Unknown Address Unknown Organization K01:[facility] [place] [address] [place] [address] [place] [address] Laboratory Report Ordering Provider Test Date Status JOSE ALBERTO ELAINE 11/30/2023 17:29:00 Final Normal CSF Glucose concentra tion should be approximately 60% of plasma/serum glucose value.
null Observation Date Value Abnormality Reference (Units ) Status Glucose, CSF 11/30/2023 17:29:00 55 45-70 ( mg/dL) Final Performing Location LABORATORY [facility] - [address] [place] [address]
--- OUTSIDE RECORDS SUMMARY | 2023-12-30 16:26 | External Medical Summary | Summary of Care ---
Author Name Unknown Organization [facility] Address [address] [place] [address] Phone [phone] Care Team Providers Care Poker Prop Player Name Role Phone Juan Dominique MD Primary Care Pr ovider Encounter Details Date Type Department Care Team (Late st Contact Info) Description 11/26/2023 Orders Only Neurology, [place] [address] [place] [address] Hua Britton MD [address] [place] [address] Allergies Active Allergy Reactions Criticality Noted Date Comments Felodipine High 11/15/2012 Other Reaction(s): hives Flunisolide 11/15/2012 Other Reaction(s): other Gabapentin High 07/16/2013 Other Reaction(s): Drowsy, GI SYMPTOMS Hydrochlorothiazide W-Triamterene 11/15/2012 Thiazide-Type Diuretics 07/21/2004 gout documented as of this encounter (statuses as of 12/01/2023) Medications Medication Sig Dispensed Refills Start Date End Date Status Pyridostigmine [place] 60 MG Oral Tablet (Mestinon) Take 0.5 [...] (Urocit-K) 1 Tablet. 0 07/26/2023 Suspended pyRIDostigmine [place] ER 180 MG Oral Tablet Extended Release (Mestinon Timespan) Take 1 Tablet by mouth in the morning. 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 Hua Britton MD RAD CT [...] Advance Directives occurred with: Patient Care Teams Poker Prop Player Relationship Specialty Start Date End Date Juan Dominique MD [address] [place] [address] PCP - General Family Medicine 09/26/23 documented as of this encounter
--- OUTSIDE RECORDS SUMMARY | 2023-12-30 16:26 | External Medical Summary ---
Author Name Unknown Address Unknown Organization K01:[facility] [place] - [address] [place] [address] Laboratory Report Ordering Provider Test Date Status JS HAMPTON 11/30/2023 01:26:00 Final Observation Date Value Abnormality Reference (Units ) Status Parathyrin.intact [Mass/volume] in Serum or Plasma 11/30/2023 01:26:00 150 Above high normal 15-65 (pg/mL) Final Performing Location LAB[facility] [place] - [address] [place] [address]
--- OUTSIDE RECORDS SUMMARY | 2023-12-30 16:26 | External Medical Summary | Summary of Care ---
Author Name Unknown Organization [facility] Address [address] [place] [address] Phone [phone] Care Team Providers Care Biofuels Plant Construction Worker Name Role Phone Juan Dominique MD Primary Care Pr ovider Encounter Details Date Type Department Care Team (Late st Contact Info) Description 11/29/2023 Orders Only Neurology, [place] [address] [place] [address] Hua Britton MD [address] [place] [address] Allergies Active Allergy Reactions Criticality Noted Date Comments Felodipine High 11/15/2012 Other Reaction(s): hives Flunisolide 11/15/2012 Other Reaction(s): other Gabapentin High 07/16/2013 Other Reaction(s): Drowsy, GI SYMPTOMS Hydrochlorothiazide W-Triamterene 11/15/2012 Thiazide-Type Diuretics 07/21/2004 gout documented as of this encounter (statuses as of 12/01/2023) Medications Medication Sig Dispensed Refills Start Date End Date Status Pyridostigmine [place] 60 MG Oral Tablet (Mestinon) Take 0.5 [...] (Urocit-K) 1 Tablet. 0 07/26/2023 Suspended pyRIDostigmine [place] ER 180 MG Oral Tablet Extended Release (Mestinon Timespan) Take 1 Tablet by mouth in the morning. 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 Hua Britton MD [...] Advance Directives occurred with: Patient Care Teams Biofuels Plant Construction Worker Relationship Specialty Start Date End Date Juan Dominique MD [address] [place] [address] PCP - General Family Medicine 09/26/23 documented as of this encounter
--- OUTSIDE RECORDS SUMMARY | 2023-12-30 16:26 | External Medical Summary ---
Author Name Unknown Address Unknown Organization : Laboratory Report Ordering Provider Test Date Status RAO TAN 12/02/2023 00:34:22 Final Observation Date Value Abnormality Reference (Units ) Status Glucose Point of Care 12/02/2023 00:34:22 102 70-120 (mg/dL) Final Performing Location
--- OUTSIDE RECORDS SUMMARY | 2023-12-30 16:26 | External Medical Summary | Summary of Care ---
Author Name Unknown Organization [facility] Address [address] [place] [address] Phone [phone] Care Team Providers Care Drum Cleaner Name Role Phone Juan Dominique MD Primary Care Pr ovider Encounter Details Date Type Department Care Team (Late st Contact Info) Description 11/28/2023 Orders Only Neurology, [place] [address] [place] [address] Hua Britton MD [address] [place] [address] Allergies Active Allergy Reactions Criticality Noted Date Comments Felodipine High 11/15/2012 Other Reaction(s): hives Flunisolide 11/15/2012 Other Reaction(s): other Gabapentin High 07/16/2013 Other Reaction(s): Drowsy, GI SYMPTOMS Hydrochlorothiazide W-Triamterene 11/15/2012 Thiazide-Type Diuretics 07/21/2004 gout documented as of this encounter (statuses as of 12/01/2023) Medications Medication Sig Dispensed Refills Start Date End Date Status Pyridostigmine [place] 60 MG Oral Tablet (Mestinon) Take 0.5 [...] (Urocit-K) 1 Tablet. 0 07/26/2023 Suspended pyRIDostigmine [place] ER 180 MG Oral Tablet Extended Release (Mestinon Timespan) Take 1 Tablet by mouth in the morning. 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 Hua Britton [...] Advance Directives occurred with: Patient Care Teams Drum Cleaner Relationship Specialty Start Date End Date Juan Dominique MD [address] [place] [address] PCP - General Family Medicine 09/26/23 documented as of this encounter
--- OUTSIDE RECORDS SUMMARY | 2023-12-30 16:26 | External Medical Summary | Summary of Care ---
Author Name Unknown Organization [facility] Address [address] [place] [address] Phone [phone] Care Team Providers Care Housing Property Manager Name Role Phone Juan Dominique MD Primary Care Pr ovider Encounter Details Date Type Department Care Team (Late st Contact Info) Description 11/29/2023 Orders Only Neurology, [place] [address] [place] [address] Hua Britton MD [address] [place] [address] Allergies Active Allergy Reactions Criticality Noted Date Comments Felodipine High 11/15/2012 Other Reaction(s): hives Flunisolide 11/15/2012 Other Reaction(s): other Gabapentin High 07/16/2013 Other Reaction(s): Drowsy, GI SYMPTOMS Hydrochlorothiazide W-Triamterene 11/15/2012 Thiazide-Type Diuretics 07/21/2004 gout documented as of this encounter (statuses as of 12/01/2023) Medications Medication Sig Dispensed Refills Start Date End Date Status Pyridostigmine [place] 60 MG Oral Tablet (Mestinon) Take 0.5 [...] (Urocit-K) 1 Tablet. 0 07/26/2023 Suspended pyRIDostigmine [place] ER 180 MG Oral Tablet Extended Release (Mestinon Timespan) Take 1 Tablet by mouth in the morning. 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 Hua Britton MD RAD CT [...] Advance Directives occurred with: Patient Care Teams Housing Property Manager Relationship Specialty Start Date End Date Juan Dominique MD [address] [place] [address] PCP - General Family Medicine 09/26/23 documented as of this encounter
--- OUTSIDE RECORDS SUMMARY | 2023-12-30 16:26 | External Medical Summary ---
Author Name Unknown Address Unknown Organization : Laboratory Report Ordering Provider Test Date Status RAO TAN 12/01/2023 05:52:47 Final Observation Date Value Abnormality Reference (Units ) Status Glucose Point of Care 12/01/2023 05:52:47 101 70-120 (mg/dL) Final Performing Location
--- OUTSIDE RECORDS SUMMARY | 2023-12-30 16:26 | External Medical Summary ---
Author Name Unknown Address Unknown Organization K01:[facility] [place] [address] [facility] [address] [place] [address] Laboratory Report Ordering Provider Test Date Status JS HAMPTON 11/30/2023 10:50:06 Final ADMITTED patient Observation Date Value Abnormality Reference (Units ) Status Adenovirus DNA [Presence] in Nasopharynx by BHAVANA with non-probe detection 11/30/2023 10:50:06 Negative Negative Final Human coronavirus 229E RNA [Presence] in Nasopharynx by BHAVANA with non-probe detection 11/30/2023 10:50:06 Negative Negative Final Human coronavirus HKU1 RNA [Presence] in Nasopharynx by BHAVANA with non-probe detection 11/30/2023 10:50:06 Negative Negative Final Human coronavirus NL63 RNA [Presence] in Nasopharynx by BHAVANA with non-probe detection 11/30/2023 10:50:06 Negative Negative Final Human coronavirus OC43 RNA [Presence] in Nasopharynx by BHAVANA with non-probe detection 11/30/2023 10:50:06 Negative Negative Final SARS-CoV-2 (COVID-19) RNA [Presence] in Nasopharynx by BHAVANA with non-probe detection 11/30/2023 10:50:06 Negative Negative Final Human metapneumovirus RNA [Presence] in Nasopharynx by BHAVANA with non-probe detection 11/30/2023 10:50:06 Negative Negative Final Rhinovirus+Enterovirus RNA [Presence] in Nasopharynx by BHAVANA with non-probe detection 11/30/2023 10:50:06 Negative Negative Final Influenza virus A RNA [Presence] in Nasopharynx by BHAVANA with non-probe detection 11/30/2023 10:50:06 Negative Negative Final Influenza virus B RNA [Presence] in Nasopharynx by BHAVANA with non-probe detection 11/30/2023 10:50:06 Negative Negative Final Parainfluenza virus 1 RNA [Presence] in Nasopharynx by BHAVANA with non-probe detection 11/30/2023 10:50:06 Negative Negative Final Parainfluenza virus 2 RNA [Presence] in Nasopharynx by BHAVANA with non-probe detection 11/30/2023 10:50:06 Negative Negative Final Parainfluenza virus 3 RNA [Presence] in Nasopharynx by BHAVANA with non-probe detection 11/30/2023 10:50:06 Negative Negative Final Parainfluenza virus 4 RNA [Presence] in Nasopharynx by BHAVANA with non-probe detection 11/30/2023 10:50:06 Negative Negative Final Respiratory syncytial virus RNA [Presence] in Nasopharynx by BHAVANA with non-probe detection 11/30/2023 10:50:06 Negative Negative Final Bordetella pertussis.pertussis toxin promoter region [Presence] in Nasopharynx by BHAVANA with non-probe detection 11/30/2023 10:50:06 Negative Negative Final Chlamydophila pneumoniae DNA [Presence] in Nasopharynx by BHAVANA with non-probe detection 11/30/2023 10:50:06 Negative Negative Final Mycoplasma pneumoniae DNA [Presence] in Nasopharynx by BHAVANA with non-probe detection 11/30/2023 10:50:06 Negative Negative Final Bordetella parapertussis [id number] DNA [Presence] in Nasopharynx by BHAVANA with non-probe detection 11/30/2023 10:50:06 Negative Negative Final
The primers that detect Rhinovirus may cross react with some Enterorviruses. The validation of bronchial specimens, tracheal aspirates, and throats for this assay was developed and performance characteristics determined by [email or web address]. The validation of alternate specimen types has not been cleared or approved by the U.S. Food and Drug Administration (FDA). It has been determined that such clearance or approval is not necessary. Performing Location [facility] [place] [facility] [place] [place] [address]
--- OUTSIDE RECORDS SUMMARY | 2023-12-30 16:26 | External Medical Summary ---
Author Name Unknown Address Unknown Organization K01:LABORATORY C - [address] [place] [address] Laboratory Report Ordering Provider Test Date Status JS HAMPTON 11/30/2023 01:26:00 Final Deficient: <20 ng/mL
Ins ufficient: 20-29 ng/mL
Recommended/Optimum:30-50 ng/mL

Vitamin D intoxication is rare. If suspicious of Vitamin D toxicity, evaluation of serum Calcium and PTH is recommended. Observation Date Value Abnormality Reference (Units ) Status 25-OH Vitamin D total 11/30/2023 01:26:00 28 >19 (ng/mL) Final Performing Location LABORATORY C - [address] [place] [address]
--- OUTSIDE RECORDS SUMMARY | 2023-12-30 16:26 | External Medical Summary ---
Author Name Unknown Address Unknown Organization : Laboratory Report Ordering Provider Test Date Status RAO TAN 11/30/2023 19:23:22 Final Observation Date Value Abnormality Reference (Units ) Status Glucose Point of Care 11/30/2023 19:23:22 75 70-120 (mg/dL) Final Performing Location
--- OUTSIDE RECORDS SUMMARY | 2023-12-30 16:26 | External Medical Summary ---
Author Name Unknown Address Unknown Organization : Laboratory Report Ordering Provider Test Date Status RAO TAN 12/01/2023 20:03:43 Final Observation Date Value Abnormality Reference (Units ) Status Glucose Point of Care 12/01/2023 20:03:43 80 70-120 (mg/dL) Final Performing Location
--- OUTSIDE RECORDS SUMMARY | 2023-12-30 16:26 | External Medical Summary ---
Author Name Unknown Address Unknown Organization K01:[facility] - [address] [place] [address] Laboratory Report Ordering Provider Test Date Status MEMOJS 11/30/2023 01:26:00 Final Observation Date Value Abnormality Reference (Units ) Status Ammonia 11/30/2023 01:26:00 34 11-35 (umo l/L) Final Performing Location [facility] - [address] [place] [address]
--- OUTSIDE RECORDS SUMMARY | 2023-12-30 16:26 | External Medical Summary ---
Author Name Unknown Address Unknown Organization K01:[facility] [place] [address] [place] [address] Laboratory Report Ordering Provider Test Date Status JS HAMPTON 11/30/2023 01:26:00 Final Observation Date Value Abnormality Reference (Units ) Status Thyroglobulin Ab 11/30/2023 01:26:00 13.4 <11 5.0 (IU/mL) Final Performing Location [facility] - [address] [facility] [address]
--- OUTSIDE RECORDS SUMMARY | 2023-12-30 16:26 | External Medical Summary ---
Author Name Unknown Address Unknown Organization : Laboratory Report Ordering Provider Test Date Status JS HAMPTON 11/30/2023 01:26:00 Final Observation Date Value Abnormality Reference (Units ) Status NICOTINIC ACID 11/30/2023 01:26:00 <20 (ng/m L) Final Due to the [...] analytical performance
characteristics have been determined by [employer] (now [employer]). It has not been cleared or approved by the
FDA. This assay has been validated pursuant to the CLIA
regulations and is used for clinical purposes. NICOTINAMIDE 11/30/2023 01:26:00 <20 (ng/mL) Final Nicotinamide is a metabolite of [...] analytical performance
characteristics have been determined by [facility]. It has not been cleared or approved by the
FDA. This assay has been validated pursuant to the CLIA
regulations and is used for clinical purposes.
Test performed by:
[employer]
[address] [facility]
[place] [address]

[phone]
Cooky Packer: Joaquim Arango M.D.
Test Reported by [facility],
[employer] [facility],
[address] [place], [place]
Rey Tripathi M.D., Ph.D., Director of Laboratories
, CLIA [id number] Performing Location
--- OUTSIDE RECORDS SUMMARY | 2023-12-30 16:26 | External Medical Summary ---
Author Name Unknown Address Unknown Organization : Laboratory Report Ordering Provider Test Date Status RAO TAN 12/01/2023 00:07:02 Final Observation Date Value Abnormality Reference (Units ) Status Glucose Point of Care 12/01/2023 00:07:02 77 70-120 (mg/dL) Final Performing Location
--- OUTSIDE RECORDS SUMMARY | 2023-12-30 16:26 | External Medical Summary ---
Author Name Unknown Address Unknown Organization : Laboratory Report Ordering Provider Test Date Status RAO TAN 11/30/2023 05:50:03 Final Observation Date Value Abnormality Reference (Units ) Status Glucose Point of Care 11/30/2023 05:50:03 78 70-120 (mg/dL) Final Performing Location
--- OUTSIDE RECORDS SUMMARY | 2023-12-30 16:26 | External Medical Summary ---
Author Name Unknown Address Unknown Organization K01:[facility]ATORY [facility] [place] [address] [place] [address] Laboratory Report Ordering Provider Test Date Status JS HAMPTON 11/30/2023 05:27:00 Final Observation Date Value Abnormality Reference (Units ) Status BUN 11/30/2023 05:27:00 17 6-20 (mg/dL) Final Creatinine 11/30/2023 05:27:00 1.5 Above high normal 0.6-1.2 (mg/dL) Final Glomerular filtration rate/1.73 sq M.predicted [Volume Rate/Area] in Serum, Plasma or Blood by Creatinine-based formula (CKD-EPI) 11/30/2023 05:27:00 48 Below low normal >=60 (mL/min) Final eGFR is calculated based on the CKD-EPI 2020 equation SODIUM 11/30/2023 05:27:00 145 135-146 (m mol/L) Final Potassium 11/30/2023 05:27:00 3.5 3.5-5.1 (m mol/L) Final Cl 11/30/2023 05:27:00 106 98-107 (mm ol/L) Final CO2 11/30/2023 05:27:00 26 22-32 (mmo l/L) Final Anion gap 11/30/2023 05:27:00 13 7-15 (mmol /L) Final Glucose 11/30/2023 05:27:00 80 70-120 (mg /dL) Final Calcium 11/30/2023 05:27:00 8.6 8.4-10.2 ( mg/dL) Final Albumin 11/30/2023 05:27:00 3.7 Below low normal 3.8 -5.0 (g/dL) Final Phosphate 11/30/2023 05:27:00 3.3 2.5-4.8 (m g/dL) Final Performing Location LABORATORY C - [address] [place] [address]
--- OUTSIDE RECORDS SUMMARY | 2023-12-30 16:26 | External Medical Summary ---
Author Name Unknown Address Unknown Organization : Laboratory Report Ordering Provider Test Date Status JS HAMPTON 11/30/2023 01:26:00 Final Observation Date Value Abnormality Reference (Units ) Status Thiamine [Moles/volume] in Blood 11/30/2023 01:26:00 99 78-185 (nmol/L) Final Vitamin supplementation with in 24 hours prior to
blood draw may affect the accuracy of the results.
This test was developed and its analytical performance
characteristics have been determined by [employer]
[place], [place]. It has
not been cleared or approved by the U.S. Food and Drug
Administration. This assay has been validated pursuant
to the CLIA regulations and is used for clinical
purposes.

Test Performed at:
[facility]
[address] [facility]
[place] [address]
Rey Tripathi M.D., Ph.D.,Director of Laboratories Performing Location
--- OUTSIDE RECORDS SUMMARY | 2023-12-30 16:26 | External Medical Summary ---
Author Name Unknown Address Unknown Organization : Laboratory Report Ordering Provider Test Date Status RAO TAN 12/01/2023 18:33:17 Final Observation Date Value Abnormality Reference (Units ) Status Glucose Point of Care 12/01/2023 18:33:17 75 70-120 (mg/dL) Final Performing Location
--- OUTSIDE RECORDS SUMMARY | 2023-12-30 16:26 | External Medical Summary ---
Author Name Unknown Address Unknown Organization K01:LABORATORY [address] [facility] [address] Laboratory Report Ordering Provider Test Date Status JS HAMPTON 11/30/2023 01:26:00 Final Observation Date Value Abnormality Reference (Units ) Status Nuclear IgG Ab [Ratio] in Serum by Immunoassay 11/30/2023 01:26:00 Negative Negative Final DNA double strand Ab [Presence] in Serum 11/30/2023 01:26:00 Negative Negative Final DOUBLE STRANDED DNA VALUE - [facility] 11/30/2023 01:26:00 3.1 <20 (IU/mL) Final Extractable nuclear Ab [Presence] in Serum 11/30/2023 01:26:00 Negative Negative Final Nuclear IgG Ab [Ratio] in Serum by Immunoassay 11/30/2023 01:26:00 <0.1 <0.7 (Ratio) Final Screening is based on detect ion of the following antibodies: dsDNA, U1-REAL ESTATE BRANCH MANAGER (RNP70, A, C), SS-A/Ro, SS-B / La, Kaur-1, Scl-70, Centromere B proteins and Sm proteins. In conjunction with clinical findings, this can aid in the diagnosis of systemic lupus erythematosous (SLE), mixed connective tissue disease (MCTD), Sjogren's syndrome, scleroderma and polymyositis/dermatomyositis.
However, a negative result does not rule out systemic rheumatic or other autoimmune disease. If clinically suspected, further evaluation and testing may be necessary. Please consult with Rheumatology Department.
Methodology: Fluorescent Enzyme Immunoassay. Performing Location LABORATORY [address] [facility] [address]
--- OUTSIDE RECORDS SUMMARY | 2023-12-30 16:26 | External Medical Summary ---
Author Name Unknown Address Unknown Organization K01:LABORATORY [facility] [place] - [address] [facility] [address] Laboratory Report Ordering Provider Test Date Status JS HAMPTON 11/30/2023 01:26:00 Final Observation Date Value Abnormality Reference (Units ) Status Body temperature 11/30/2023 01:26:00 37.0 (C) Final pH of Venous blood 11/30/2023 01:26:00 7.430 7.320-7.430 (units) Final Carbon dioxide [Partial pressure] in Venous blood 11/30/2023 01:26:00 47.4 40.0-60.0 (mmHg) Final Oxygen [Partial pressure] in Venous blood 11/30/2023 01:26:00 28.0 25.0-50.0 (mmHg) Final Base excess, Capillary 11/30/2023 01:26:00 6.0 Above high normal -2.0-2.0 (mmol/L) Final Hemoglobin [Mass/volume] in Blood by Oximetry 11/30/2023 01:26:00 13.5 Below low normal 14.0-16.8 (g/dL) Final Oxyhemoglobin, Venous (FO2HB) 11/30/2023 01:26:00 50.9 40.0-85.0 (% total Hgb) Final Carboxyhemoglobin 11/30/2023 01:26:00 1.0 <=1.5 (% total Hgb) Final Smokers: 0-9.0 % Methemoglobin 11/30/2023 01:26:00 0.9 <=1.5 (% total Hgb) Final Deoxyhemoglobin/Hemoglobin.t otal in Venous blood 11/30/2023 01:26:00 47.2 (% total Hgb) Ranjana l Oxygen content in Venous blood 11/30/2023 01:26:00 9.6 7.0-18.0 (%vol) Final Bicarbonate, Venous, POC (i-STAT) 11/30/2023 01:26:00 30.9 23.0-31.0 (mmol/L) nal Performing Location LABORATORY [facility] [place] - [address] [facility] [address]
--- OUTSIDE RECORDS SUMMARY | 2023-12-30 16:26 | External Medical Summary | Summary of Care ---
Author Name Unknown Organization [facility] Address [address] [place] [address] Phone [phone] Care Team Providers Care Cable Ferry Operator Name Role Phone Juan Dominique MD Primary Care Pr ovider Encounter Details Date Type Department Care Team (Late st Contact Info) Description 11/28/2023 Orders Only Neurology, [place] [address] [place] [address] Hua Britton MD [address] [place] [address] Allergies Active Allergy Reactions Criticality Noted Date Comments Felodipine High 11/15/2012 Other Reaction(s): hives Flunisolide 11/15/2012 Other Reaction(s): other Gabapentin High 07/16/2013 Other Reaction(s): Drowsy, GI SYMPTOMS Hydrochlorothiazide W-Triamterene 11/15/2012 Thiazide-Type Diuretics 07/21/2004 gout documented as of this encounter (statuses as of 12/01/2023) Medications Medication Sig Dispensed Refills Start Date End Date Status Pyridostigmine [place] 60 MG Oral Tablet (Mestinon) Take 0.5 [...] (Urocit-K) 1 Tablet. 0 07/26/2023 Suspended pyRIDostigmine Aptos ER 180 MG Oral Tablet Extended Release (Mestinon Timespan) Take 1 Tablet by mouth in the morning. 0 Suspended Vitamin D (Ergocalciferol) 1.25 MG (44630 UT) Oral Capsule (Drisdol) Take 1 Capsule [...] ICD-10 update of inactive term LOC PRIM [id number] 07/23/2003 DIVERTICULOSIS OF COLON 01/22/2003 Gouty arthropathy [...] interpreted or [facility] a [facility]. Hua Britton [...] Advance Directives occurred with: Patient Care Teams Cable Ferry Operator Relationship Specialty Start Date End Date Juan Dominique MD [address] [facility] [place] [address] PCP - General Family Medicine 09/26/23 documented as of this encounter
--- OUTSIDE RECORDS SUMMARY | 2023-12-30 16:26 | External Medical Summary ---
Author Name Unknown Address Unknown Organization K01:[facility] [place] [address] [place] [address] Laboratory Report Ordering Provider Test Date Status JS HAMPTON 11/29/2023 22:07:00 Final Observation Date Value Abnormality Reference (Units ) Status Erythrocyte sedimentation rate by Photometric method 11/29/2023 22:07:00 63 Above high normal <20 (mm/hour) Final Performing Location LAB[facility] [place] [address] [place] [address]
--- OUTSIDE RECORDS SUMMARY | 2023-12-30 16:26 | External Medical Summary ---
Author Name Unknown Address Unknown Organization K01:LABORATORY C - [address] [place] [address] Laboratory Report Ordering Provider Test Date Status JS HAMPTON 11/29/2023 22:07:00 Final Observation Date Value Abnormality Reference (Units ) Status T4, Free 11/29/2023 22:07:00 1.4 0.9-1.7 (n g/dL) Final Performing Location [facility] [address] [facility] [place] [address]
--- OUTSIDE RECORDS SUMMARY | 2023-12-30 16:26 | External Medical Summary ---
Author Name Unknown Address Unknown Organization K01:LABORATORY [facility] [place] - [address] [place] [address] Laboratory Report Ordering Provider Test Date Status JOSE ALBERTO ELAINE 11/30/2023 17:29:00 Final No anaerobic growth. Observation Date Value Abnormality Reference (Units) Status Bacteria identified in Specimen by Culture 11/30/2023 17:29:00 [id number]^STAPHYLO COCCUS, COAGULASE NEGATIVE Very abnormal Final One colony Staphylococcus, c oagulase negative
Probable contaminant
Clinical correlation needed Gram Stain 11/30/2023 17:29:00 No polymorphonuclear leukocyt es seen Final Gram Stain 11/30/2023 17:29:00 No organisms seen Final Test: Culture, CSF, Aerobic and Anaerobic
Specimen Source: CSF
Specimen Type: Cerebrospinal Fluid
Specimen Date: 11/30/2023 5:29 PM
Result Date: 12/07/2023 2:29 PM
Result Status: Final result
Abnormal: Yes
Resulting Lab: LAB[facility]ATORY [facility] [place]
[address]
[place] [address]

CULTURE

One colony Staphylococcus, coagulase negative (Panic)

Probable contaminant
Clinical correlation needed

No anaerobic growth.

STAIN

No polymorphonuclear leukocytes seen

No organisms seen

null Performing Location LAB[facility]ATORY [facility] [place] - [address] [place] [address]
--- OUTSIDE RECORDS SUMMARY | 2023-12-30 16:26 | External Medical Summary ---
Author Name Unknown Address Unknown Organization K01:LAB[facility]ORY [facility] - [address] [place] [address] Laboratory Report Ordering Provider Test Date Status JOSE ALBERTO ELAINE 11/30/2023 17:29:00 Final Observation Date Value Abnormality Reference (Units ) Status Protein, CSF 11/30/2023 17:29:00 44 15-45 ( mg/dL) Final Performing Location [facility] - [address] [place] [address]
--- OUTSIDE RECORDS SUMMARY | 2023-12-30 16:26 | External Medical Summary ---
Author Name Unknown Address Unknown Organization K01:LABORATORY C - [address] [place] [address] [place] [address] Laboratory Report Ordering Provider Test Date Status JOSE ALBERTO ELAINE 11/30/2023 17:29:00 Final Differential not performed; no nucleated cells seen.
Some reference ranges and other method performance specifications have not been established for this fluid. The test results must be integrated into the clinical context for interpretation. Observation Date Value Abnormality Reference (Units ) Status SYNC TOTAL NUCLEATED CELLS, CSF 11/30/2023 17:29:00 0 (cells/uL) Final Neutrophils/100 leukocytes in Cerebral spinal fluid 11/30/2023 17:29:00 8 Above high normal 0-6 (%) Final Lymphocytes/100 leukocytes in Cerebral spinal fluid 11/30/2023 17:29:00 38 Below low normal 40-80 (%) Final Monocytes/100 leukocytes in Cerebral spinal fluid 11/30/2023 17:29:00 54 Above high normal 15-45 (%) Final Neutrophils [#/volume] in Cerebral spinal fluid 11/30/2023 17:29:00 0.00 (cells/uL) Final Lymphocytes [#/volume] in Cerebral spinal fluid 11/30/2023 17:29:00 0.00 (cells/uL) Final Monocytes [#/volume] in Cerebral spinal fluid 11/30/2023 17:29:00 0.00 (cells/uL) Final Performing Location [facility] - [address] [place] [address]
--- OUTSIDE RECORDS SUMMARY | 2023-12-30 16:26 | External Medical Summary ---
Author Name Unknown Address Unknown Organization : Laboratory Report Ordering Provider Test Date Status RAO TAN 12/01/2023 13:29:12 Final Observation Date Value Abnormality Reference (Units ) Status Glucose Point of Care 12/01/2023 13:29:12 101 70-120 (mg/dL) Final Performing Location
--- OUTSIDE RECORDS SUMMARY | 2023-12-30 16:26 | External Medical Summary ---
Author Name Unknown Address Unknown Organization K01:[place] [address] [address] Laboratory Report Ordering Provider Test Date Status MEMOJS 11/30/2023 01:26:00 Final Observation Date Value Abnormality Reference (Units ) Status ACTH 11/30/2023 01:26:00 21.6 7.2-63.3 ( pg/mL) Final Performing Location LABORATORY C - [address] [place] [address]
--- OUTSIDE RECORDS SUMMARY | 2023-12-30 16:26 | External Medical Summary ---
Author Name Unknown Address Unknown Organization : Laboratory Report Ordering Provider Test Date Status RAO TAN 12/01/2023 05:25:02 Final Observation Date Value Abnormality Reference (Units ) Status Glucose Point of Care 12/01/2023 05:25:02 65 Below low normal 70-120 (mg/dL) Final Performing Location
--- OUTSIDE RECORDS SUMMARY | 2023-12-30 16:26 | External Medical Summary | Summary of Care ---
Author Name Unknown Organization [facility] Address [address] [place] [address] Phone [phone] Care Team Providers Care Urban Planning Professor Name Role Phone Juan Dominique MD Primary Care Pr ovider Encounter Details Date Type Department Care Team (Late st Contact Info) Description 11/27/2023 Orders Only Neurology, [place] [address] [place] [address] Hua Britton MD [address] [place] [address] Allergies Active Allergy Reactions Criticality Noted Date Comments Felodipine High 11/15/2012 Other Reaction(s): hives Flunisolide 11/15/2012 Other Reaction(s): other Gabapentin High 07/16/2013 Other Reaction(s): Drowsy, GI SYMPTOMS Hydrochlorothiazide W-Triamterene 11/15/2012 Thiazide-Type Diuretics 07/21/2004 gout documented as of this encounter (statuses as of 12/01/2023) Medications Medication Sig Dispensed Refills Start Date End Date Status Pyridostigmine [place] 60 MG Oral Tablet (Mestinon) Take 0.5 [...] (Urocit-K) 1 Tablet. 0 07/26/2023 Suspended pyRIDostigmine [place] ER 180 MG Oral Tablet Extended Release (Mestinon Timespan) Take 1 Tablet by mouth in the morning. 0 Suspended Vitamin D (Ergocalciferol) 1.25 MG (77976 UT) Oral Capsule (Drisdol) Take 1 Capsule [...] ICD-10 update of inactive term LOC PRIM [id number] 07/23/2003 DIVERTICULOSIS OF COLON 01/22/2003 Gouty arthropathy [...] interpreted or [facility]. Hua Britton MD [...] Advance Directives occurred with: Patient Care Teams Urban Planning Professor Relationship Specialty Start Date End Date Juan Dominique MD [address] [place] [address] PCP - General Family Medicine 09/26/23 documented as of this encounter
--- OUTSIDE RECORDS SUMMARY | 2023-12-30 16:27 | External Medical Summary ---
Author Name Unknown Address Unknown Organization [id number]:[place] [facility] [place] [address] [facility] [place] [address] Laboratory Report Ordering Provider Test Date Status JS HAMPTON 11/29/2023 21:42:06 Final SCREENING Observation Date Value Abnormality Reference (Units ) Status SARS Coronavirus 2 11/29/2023 21:42:06 Negative N egative Final 2019 Novel Coronavirus not d etected.

This express test was developed and its performance characteristics determined by [facility]. It has not been cleared or approved by the U.S. Food and Drug Administration (FDA). FDA does not require this test to go thru premarket FDA review. This test is used for clinical purposes. It should not be regarded as investigational or for research. This laboratory is certified under the Clinical Laboratory Improvement Amendments (CLIA) as qualified to perform high complexity clinical laboratory testing.

This test is a nucleic acid amplification test (NAAT), a reverse transcriptase polymerase chain reaction (RT-PCR) test, or a Centers for Disease Control-acceptable equivalent. The test is performed in a high complexity Clinical Laboratory Improvement Amendments-(CLIA) certified laboratory. The test is acceptable for SARS-CoV-2 diagnosis, surveillance, and travel within the [place] and to most countries. Please check with local testing authorities about requirements before travel.

The validation of bronchial specimens, tracheal aspirates, and sputum for this assay was developed and performance characteristics determined by [facility]. The validation of alternate specimen types has not been cleared or approved by the U.S. Food and Drug Administration (FDA). It has been determined that such clearance is not necessary. Performing Location [facility] [place] [facility] [address] [facility] [place] [address]
--- OUTSIDE RECORDS SUMMARY | 2023-12-30 16:27 | External Medical Summary ---
Author Name Unknown Address Unknown Organization [id number]:[facility] [place] [address] [place] [address] Laboratory Report Ordering Provider Test Date Status JS HAMPTON 11/29/2023 21:42:06 Final Observation Date Value Abnormality Reference (Units ) Status Methicillin resistant Staphylococcus aureus (MRSA) DNA [Presence] in Nose by BHAVANA with probe detection 11/29/2023 21:42:06 Negative Negative Final No Methicillin resistant Sta phylococcus aureus detected by PCR (amplified probe). Performing Location [facility] - [address] [place] [address]
--- OUTSIDE RECORDS SUMMARY | 2023-12-30 16:27 | External Medical Summary ---
Author Name Unknown Address Unknown Organization [id number]:[facility] [place] [address] [place] [address] Laboratory Report Ordering Provider Test Date Status MEMOJS 11/29/2023 22:07:00 Final Observation Date Value Abnormality Reference (Units ) Status Vitamin B12 11/29/2023 22:07:00 1938 Above high normal 232-1245 (pg/mL) Final Performing Location [facility] - [address] [place] [address]
--- OUTSIDE RECORDS SUMMARY | 2023-12-30 16:27 | External Medical Summary ---
Author Name Unknown Address Unknown Organization [id number]:[facility]ORY [facility] [place] [address] [facility] [address] Laboratory Report Ordering Provider Test Date Status JS HAMPTON 11/29/2023 22:07:00 Final Observation Date Value Abnormality Reference (Units ) Status WBC, Total 11/29/2023 22:07:00 7.96 4.00-10.80 (K/uL) Final RBC 11/29/2023 22:07:00 4.64 4.50-5.25 (M/uL) Final Hemoglobin 11/29/2023 22:07:00 13.8 Below low normal 14.0-16.8 (g/dL) Final HCT 11/29/2023 22:07:00 42.8 40.0-48.4 (%) Final MCV 11/29/2023 22:07:00 92.2 82.0-99.5 (fL) Final MCH 11/29/2023 22:07:00 29.7 27.0-34.0 (pg) Final MCHC 11/29/2023 22:07:00 32.2 32.0-36.0 (g/dL) Final RDW 11/29/2023 22:07:00 15.9 11.5-15.5 (%) Final Platelets 11/29/2023 22:07:00 152 140-400 (K/uL) Final MPV 11/29/2023 22:07:00 11.5 6.6-11.1 (fL) Final Nucleated erythrocytes/100 leukocytes [Ratio] in Blood by Automated count 11/29/2023 22:07:00 0 <=0 (/100 WBCs) Final Performing Location LABORATORY [facility] [place] - [address] [place] [address]
--- OUTSIDE RECORDS SUMMARY | 2023-12-30 16:27 | External Medical Summary ---
Author Name Unknown Address Unknown Organization [id number]:LABORATORY [facility] - [address] [place] [address] Laboratory Report Ordering Provider Test Date Status MEMOJS 11/29/2023 22:07:00 Final Observation Date Value Abnormality Reference (Units ) Status Magnesium 11/29/2023 22:07:00 1.8 1.5-2.6 (m g/dL) Final Performing Location LAB[facility]ATORY [facility] - [address] [place] [address]
--- OUTSIDE RECORDS SUMMARY | 2023-12-30 16:27 | External Medical Summary ---
Author Name Unknown Address Unknown Organization [id number]:LABORATORY [facility] [place] [address] [place] [address] Laboratory Report Ordering Provider Test Date Status JS HAMPTON 11/29/2023 22:07:00 Final Observation Date Value Abnormality Reference (Units ) Status BUN 11/29/2023 22:07:00 16 6-20 (mg/dL) Final Creatinine 11/29/2023 22:07:00 1.5 Above high normal 0.6-1.2 (mg/dL) Final Glomerular filtration rate/1.73 sq M.predicted [Volume Rate/Area] in Serum, Plasma or Blood by Creatinine-based formula (CKD-EPI) 11/29/2023 22:07:00 48 Below low normal >=60 (mL/min) Final eGFR is calculated based on the CKD-EPI 2020 equation SODIUM 11/29/2023 22:07:00 143 135-146 (m mol/L) Final Potassium 11/29/2023 22:07:00 3.4 Below low normal 3.5 -5.1 (mmol/L) Final Cl 11/29/2023 22:07:00 105 98-107 (mm ol/L) Final CO2 11/29/2023 22:07:00 26 22-32 (mmo l/L) Final Anion gap 11/29/2023 22:07:00 12 7-15 (mmol /L) Final Glucose 11/29/2023 22:07:00 90 70-120 (mg /dL) Final Albumin 11/29/2023 22:07:00 3.9 3.8-5.0 (g /dL) Final AST (Aspartate aminotransferase) 11/29/2023 22:07:00 37 10-50 (U/L) Fin al Alk Phos 11/29/2023 22:07:00 81 35-130 (U/ L) Final Bilirubin, Total 11/29/2023 22:07:00 1.4 Above high no rmal <=1.2 (mg/dL) Final Calcium 11/29/2023 22:07:00 9.1 8.4-10.2 ( mg/dL) Final Protein 11/29/2023 22:07:00 7.3 6.0-8.3 (g /dL) Final ALT (Alanine aminotransferase) 11/29/2023 22:07:00 20 10-50 (U/L) Juan Manuel honeycutt Performing Location LABORATORY [facility] [place] - [address] [facility] [address]
--- OUTSIDE RECORDS SUMMARY | 2023-12-30 16:27 | External Medical Summary ---
Author Name Unknown Address Unknown Organization K01:LABORATORY [facility] - [address] [place] [address] Laboratory Report Ordering Provider Test Date Status MEMOJS 11/29/2023 22:07:00 Final Observation Date Value Abnormality Reference (Units ) Status Phosphate 11/29/2023 22:07:00 3.6 2.5-4.8 (m g/dL) Final Performing Location [facility] - [address] [place] [address]
--- NOTE | 2023-12-30 17:34 | Hospitalist Progress Note ---
Date of Service December 30, 2023 Assessment & Plan (1) Encephalopathy: (2) Dysphagia: (3) C. difficile diarrhea: (4) Ambulatory dysfunction: (5) History of myasthenia gravis: (6) Sinus bradycardia: (7) Myasthenia gravis: (8) Atrial fibrillation: (9) DM II (diabetes mellitus, type II), controlled: (10) MDD (major depressive disorder): (11) HTN (hypertension): (12) HLD (hyperlipidemia): Plan: Acute renal failure Creatinine remains at 1.6 Baseline creatinine is 1.0 Continue gentle IV NSS PAF status post Watchman device patient prior [place] of [place] 200 mg [place] [facility] [place] Hold amiodarone for now as heart rate in the 60s Monitor closely PVD status post surgery hypertension, BP stable, [place] [facility] [place] Hyperlipidemia on statin Rx, History traumatic subarachnoid hemorrhage as per records DM2 diet-controlled, well-controlled as of recent hemoglobin A1c of 6 this month Hypothyroidism, [place] [facility] [place] slight elevated at 6 Continue levothyroxine Chronic anemia, hemoglobin at baseline Esophageal dysfunction, General surgery recommended against PEG tube placement due to patient mentation and high risk of dislodgment as [place] [facility] [place] History of C. difficile status post vancomycin Rx, diarrhea symptoms resolved as per patient. PUD as per records Mood disorder, at baseline Myasthenia gravis, stable on current Mestinon regimen Functional disability/deconditioning PT OT eval DVT prophylaxis. Heparin subcu Full code Admission and Anticipated Discharge Date Admission Date: December 29, 2023 Subjective Follow-up for myasthenia gravis, etc. Seen resting in bed, awake and alert, watching TV, calm, cooperative, comfortable Patient mostly mumbling words Occasionally I am able to decipher patient's sentences Feels okay overall Asking when he will be able to leave the hospital Asking what day it is today No shortness of breath, abdominal pain, chest pain, headache, dizziness No other new symptom Review of Systems Review of Systems: all noted and negative except for above Physical Exam Physical Exam: General-awake, trying to speak in sentences with no effort or accessory muscle use Eyes- anicteric Neck- no JVD Lungs- clear breath sounds bilaterally, no crackles, no wheezing Heart- normal rate, regular rhythm; no murmurs Abdomen- normal bowel sounds, nondistended, soft, no tenderness Extremities- no pretibial edema, no calf tenderness Neuro- alert, (+) dysarthria, no new gross focal neurologic deficits Skin- warm & dry Results & Data Results & Data Vital Signs (Past 12 Hours) Vital Signs Temp Pulse Resp BP Pulse Ox O2 Del Method 12/30/23 15:36 36.4 C L 61 16 95/65 L 100 Room Air 12/30/23 08:00 Room Air 12/30/23 07:06 36.5 C 64 18 107/64 100 Room Air all noted and reviewed including below
[2023-12-30] MEDS: SODIUM CHLORIDE 0.9% 1,000 ML IV SCH (18:31)
[2023-12-30] MEDS: PRAVASTATIN SOD 40 MG TAB PO SCH (19:34)
[2023-12-31 12:37] LABS: BUN Creatinine Ratio 19.6 (10-20); Calcium 8.8 mg/dl (8.6-10.3); Est GFR (African American) 79.5 ml/min; Est GFR (Non-African American) 68.6 ml/min
--- NOTE | 2023-12-31 14:47 | Hospitalist Progress Note ---
Date of Service December 31, 2023 Assessment & Plan (1) Encephalopathy: (2) Dysphagia: (3) C. difficile diarrhea: (4) Ambulatory dysfunction: (5) History of myasthenia gravis: (6) Sinus bradycardia: (7) Myasthenia gravis: (8) Atrial fibrillation: (9) DM II (diabetes mellitus, type II), controlled: (10) MDD (major depressive disorder): (11) HTN (hypertension): (12) HLD (hyperlipidemia): Plan: Acute renal failure Creatinine remains at 1.6 Baseline creatinine is 1.0 Continue gentle IV NSS 12/31 Creatinine 1.02 DC IV fluid PAF status post Watchman device patient prior home Rx of amiodarone 200 mg daily discontinued at [facility] [place] due to bradycardia Hold amiodarone for now as heart rate in the 60s Monitor closely 12/31 Heart rate remains in the 50s-60s Amiodarone on hold Monitor closely PVD status post surgery hypertension losartan discontinued at [facility] [place] Monitor blood pressure Hyperlipidemia on statin Rx, History traumatic subarachnoid hemorrhage as per records DM2 diet-controlled, well-controlled as of recent hemoglobin A1c of 6 this month Hypothyroidism, TSH drawn at [facility] [place] this month slight elevated at 6 Continue levothyroxine Chronic anemia, hemoglobin at baseline Esophageal dysfunction, General surgery recommended against PEG tube placement due to patient mentation and high risk of dislodgment as per [facility] [place] notes. History of C. difficile status post vancomycin Rx, diarrhea symptoms resolved as per patient. PUD as per records Mood disorder, at baseline Myasthenia gravis, stable on current Mestinon regimen Functional disability/deconditioning PT and OT eval PT OT eval DVT prophylaxis. Heparin subcu Full code Disposition Pending Admission and Anticipated Discharge Date Admission Date: December 29, 2023 Subjective Follow-up for myasthenia gravis, etc. Seen resting in bed, sleeping, not in distress Discussed with [employer], patient was awake and alert this morning Less confused, spitting out food while being assisted with breakfast No signs of pain, shortness of breath or any other symptoms noted Review of Systems Review of Systems: all noted and negative except for above Physical Exam Physical Exam: General-sleeping, breathing with no effort or accessory muscle use Eyes- anicteric Neck- no JVD Lungs- clear breath sounds bilaterally, no crackles, no wheezing noted Heart- normal rate, regular rhythm; no murmurs Abdomen- normal bowel sounds, nondistended, soft, nontender Extremities- no pretibial edema, no calf tenderness Neuro-patient sleeping Skin- warm & dry Results & Data Results & Data Vital Signs (Past 12 Hours) Vital Signs Temp Pulse Resp BP Pulse Ox O2 Del Method 12/31/23 14:04 36.3 C L 54 L 18 150/65 H 98 Room Air 12/31/23 09:06 Room Air 12/31/23 07:16 36.5 C 50 L 18 109/63 100 Room Air all noted and reviewed including below
[2024-01-01 09:51] LABS: Hematocrit (blood only) 42.3 % (42.0-52.0); Hemoglobin 13.3 g/dl (14.0-18.0); Mean Corpuscular Hemoglobin 28.6 pg (25.0-34.0); Mean Corpuscular Hgb Conc 31.4 g/dL (32.0-36.0); Mean Platelet Volume 10.6 fL (9.4-12.4); Platelet Count 201 K/uL (130-400); RDW Coefficient of Variation 15.7 % (11.5-14.5); RDW Standard Deviation 50.9 fL (36.4-46.3); Red Blood Count 4.65 M/uL (4.70-6.10); White Blood Count 6.04 K/ul (4.8-10.8)
--- NOTE | 2024-01-01 19:22 | Hospitalist Progress Note ---
Date of Service January 01, 2024 Assessment & Plan (1) Encephalopathy: (2) Dysphagia: (3) C. difficile diarrhea: (4) Ambulatory dysfunction: (5) History of myasthenia gravis: (6) Sinus bradycardia: (7) Myasthenia gravis: (8) Atrial fibrillation: (9) DM II (diabetes mellitus, type II), controlled: (10) MDD (major depressive disorder): (11) HTN (hypertension): (12) HLD (hyperlipidemia): Plan: Acute renal failure Creatinine remains at 1.6 Baseline creatinine is 1.0 Continue gentle IV NSS 12/31 Creatinine 1.02 DC IV fluid PAF status post Watchman device patient prior home Rx of amiodarone 200 mg daily [place] [facility] [place] to [place] Hold amiodarone for now as heart rate in the 60s Monitor closely 12/31 Heart rate remains in the 50s-60s Amiodarone on hold Monitor closely PVD status post surgery hypertension losartan discontinued [place] [facility] [place] Monitor blood pressure Hyperlipidemia on statin Rx, History traumatic subarachnoid hemorrhage as per records DM2 diet-controlled, well-controlled as of recent hemoglobin A1c of 6 this month Hypothyroidism, TSH drawn [place] [facility] [place] month slight elevated at 6 Continue levothyroxine Chronic anemia, hemoglobin at baseline Esophageal dysfunction, General surgery recommended against PEG tube placement due to patient mentation and high risk of dislodgment as per [facility]. History of C. difficile status post vancomycin Rx, diarrhea symptoms resolved as per patient. PUD as per records Mood disorder, at baseline Myasthenia gravis, stable on current Mestinon regimen Functional disability/deconditioning PT and OT eval PT OT eval DVT prophylaxis. Heparin subcu Full code Disposition Pending Admission and Anticipated Discharge Date Admission Date: December 29, 2023 Results & Data Results & Data Vital Signs (Past 12 Hours) Vital Signs Temp Pulse Resp BP Pulse Ox O2 Del Method 01/01/24 15:13 36.8 C 60 18 120/74 99 Room Air 01/01/24 11:57 36.6 C 80 15 126/74 97 Room Air 01/01/24 08:20 36.6 C 78 15 133/72 98 Room Air 01/01/24 08:00 Room Air
[2024-01-02] MEDS: ACETAMINOPHEN 325 MG TAB PO PRN (14:45)
[2024-01-02] MEDS: SODIUM CHLORIDE 0.9% 1,000 ML IV SCH (17:29)
--- NOTE | 2024-01-02 19:39 | Hospitalist Progress Note ---
Date of Service January 02, 2024 Assessment & Plan (1) Encephalopathy: (2) Dysphagia: (3) C. difficile diarrhea: (4) Ambulatory dysfunction: (5) History of myasthenia gravis: (6) Sinus bradycardia: (7) Myasthenia gravis: (8) Atrial fibrillation: (9) DM II (diabetes mellitus, type II), controlled: (10) MDD (major depressive disorder): (11) HTN (hypertension): (12) HLD (hyperlipidemia): Plan: Acute renal failure Creatinine remains at 1.6 Baseline creatinine is 1.0 Continue gentle IV NSS 01/02 resolved Creatinine 1.02 PAF status post Watchman device patient prior [place] amiodar[place] 200 mg [place] [facility] [place] to [place] Hold amiodarone for now as heart rate in the 60s Monitor closely 01/02 Heart rate remains in the 50s-60s Amiodarone on hold Monitor closely PVD status post surgery hypertension losartan discontinued [place] [facility] [place] BP stable overall Hyperlipidemia on statin Rx, History traumatic subarachnoid hemorrhage as per records DM2 diet-controlled, well-controlled as of recent hemoglobin A1c of 6 this month Hypothyroidism, TSH drawn [place] [facility] [place] slight elevated at 6 Continue levothyroxine Chronic anemia, hemoglobin at baseline Esophageal dysfunction, General surgery recommended against PEG tube placement due to patient mentation and high risk of dislodgment as per [facility] [place]. History of C. difficile status post vancomycin Rx, diarrhea symptoms resolved as per patient. PUD as per records Mood disorder, at baseline Myasthenia gravis, stable on current Mestinon regimen Functional disability/deconditioning PT and OT eval PT OT eval DVT prophylaxis. Heparin subcu Full code Disposition Pending Admission and Anticipated Discharge Date Admission Date: December 29, 2023 Subjective ff up for myasthenia gravis, etc seen resting in bed, comfortable denies pain, shortness of breath no other new symptoms Review of Systems Review of Systems: all noted and negative except for above Physical Exam Physical Exam: General- not oriented, breathing with no effort or accessory muscle use Eyes- anicteric Neck- no JVD Lungs- clear breath sounds bilaterally, no crackles/wheezing Heart- normal rate, regular rhythm; no murmurs Abdomen- normal bowel sounds, nondistended, soft, no tenderness Extremities- no pretibial edema, no calf tenderness Neuro- alert, no new gross focal neurologic deficits Skin- warm & dry Results & Data Results & Data Vital Signs (Past 12 Hours) Vital Signs Temp Pulse Resp BP Pulse Ox O2 Del Method 01/02/24 14:39 36.4 C L 53 L 16 109/63 99 Room Air 01/02/24 08:00 Room Air 01/02/24 07:49 35.8 C L 60 18 124/76 100 Room Air
[2024-01-03] MEDS: CARBOHYDRATES FOR HYPOGLYCEMIA PO PRN (08:20)
--- NOTE | 2024-01-03 11:53 | Hospitalist Progress Note ---
Date of Service January 03, 2024 Assessment & Plan (1) Encephalopathy: (2) Dysphagia: (3) C. difficile diarrhea: (4) Ambulatory dysfunction: (5) History of myasthenia gravis: (6) Sinus bradycardia: (7) Myasthenia gravis: (8) Atrial fibrillation: (9) DM II (diabetes mellitus, type II), controlled: (10) MDD (major depressive disorder): (11) HTN (hypertension): (12) HLD (hyperlipidemia): Plan: Mr. Huizar is an 83 year old gentleman with history of paroxysmal atrial fibrillation now s/p Watchman 09/28, myasthenia gravis, hypertension, HLD, DMTII, progressive dysphagia who is presented to [facility] ED initially on 11/26/2022 due to worsening headaches, dysphagia, and episode of confusion. He experienced a progressive neurologic decline and transferred to [facility] [place] for neurologic eval and LP. No clear etiology of patient's decline was revealed. Patient was evaluated by general surgey and not a candidate for PEG placememnt. Patient's course complicated by C diff and completed oral vanc for 14 days on 12/28. Patient then transferred to [facility] on 12/29 while placement is pending for termite treater care. Patient;s course since return was notable for SHWETA I spoke to Dr. Mcfarland from [place] about transferring Mr. Huizar. Pt was transferred to [facility] due to progressive neuro decline and limited imaging. Dr. Mcfarland said that pt is stable that he is waiting for placement. Family would like pt to transfer to our facility while waiting for placement. Pt completed 14 days course of abx with oral vanco for C-diff yesterday. Pt is confused, disoriented and on/off agitation at baseline. he was evaluated by surgery and he is not a candidate for Peg tube placement. Palliative care met with family. Pt is Full code. as per Dr. Mcfarland pt is stable to rehab once there is a bed available. Pt will be transferred to [facility] once bed available. #SHWETA Up to 1.6, resolved and IVF fluids discontinued on 01/02 BMP in am #Acute Encephalopathy, unclear etiology, stable #Progressive Delirium #Myasthenia Gravis -delirium precautions as able -continue melatonin HS prn -psychiatry evaluated at [place]: started on Abilify as per their recommendations, but later discontinued per palliative medicine recs in favor of olanxipine 5mg qhs -palliative medicine consulted, recommending olanzapine for appetite stimulation and to discontinue Abilify. -surgery consulted and recommended against PEG tube placement due to mentation and high risk of dislodgement -PT/OT consult is following along -Neurology at [place]: recommending to continue MECHANICAL MANUFACTURING TECHNICIAN pyridostigmine 30 mg three times daily on discharge, and hold MECHANICAL MANUFACTURING TECHNICIAN pyridostigmine ER 180 mg until neuro follow-up as an outpatient #Abnormal UA UA did not reflex -Repeat infectious workup given profound delirium -UA negative 11/29 #Mild/moderate oropharyngeal dysphagia #Esophageal dysfunction #Progressive dysphagia, +silent aspiration #Increased secretions -NGT placed in [place] and NG tube was also removed on 12/18, per request of family -calorie counting was performed, dietitian following. Oral intake improving with assistance Family meeting held with palliative medicine on 12/25/2023 with plan to continue to monitor mentation and p.o. 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 Continue levothyroxine 50mg #Paroxysmal Atrial Fibrillation s/p watchman #Chronic RBBB #Symptomatic bradycardia [id number] 3, HASBLED 2 01/2022, newly diagnosed A Fib RVR, discharged with amiodarone; discontinued 11/2022, however reverted back to a fib and placed on amio/metoprolol/dilt s/p cardioversion Followed with Dr Mcneil 05/2023 during admission, during that time amiodarone continued, metoprolol Watchman placed 09/2023 -MECHANICAL MANUFACTURING TECHNICIAN amiodarone 200mg daily -Placed on DAPT post watchman to continue for reportedly 6 months, then asa 81 indefinitely -Continue ASA and plavix -Discontinued amiodarone -No device at this time #Intermittent Hypoglycemia #DMTII Hypogylcemia protocol A1C 6.0 Encourage PO intake #HTN Takes amlodipine and losartan -Discontinue MECHANICAL MANUFACTURING TECHNICIAN antihypertensives #Carotid stenosis s/p CEA #HLD Continue pravastatin #C Diff colitis S/p oral vanc times 14 days EOT 12/28 #Urinary urgency #Recurrent nephrolithiasis #Renal Cysts -Failed Gemtesa, trospium, myrbetriq, follows Dr. Broussard; OP recommendation include limit salt, prioritize hydration DVT ppx: heparin/SCDs Admit to med surg dispo to LTF Admission and Anticipated Discharge Date Admission Date: December 29, 2023 Subjective Patient evaluated at bedside, initially appeared confused, but will respond clear to yes/no questions and responds appropriately to name Denied any chest pain, abdominal discomfort or other acute concerns Physical Exam Constitutional: WD/WN, vitals as above slow to respond, eye lids appear "heavy" but patient will open when asked, however, they close near immediately, mouth ajar and dysarthric but able to say few words Respiratory: normal respiratory effort, lungs clear to auscultation Cardiovascular: bradycardic, but regular Results & Data Results & Data Vital Signs (Past 12 Hours) Vital Signs Temp Pulse Resp BP Pulse Ox O2 Del Method 01/03/24 08:00 Room Air 01/03/24 07:55 35.9 C L 52 L 16 127/70 98 Room Air 01/02/24 23:54 Room Air Laboratory Results No labs for review Medications Administered Home Medications Medication Instructions Recorded Confirmed Last Taken pravastatin 40 mg tablet 40 mg PO QPM 12/23/21 12/29/23 03/10/23 pyridostigmine bromide 60 mg 30 mg PO TID 12/23/21 12/29/23 03/10/23 tablet (Mestinon) acetaminophen 325 mg capsule 650 mg PO QID PRN Fever Or Pain 01/21/22 12/29/23 10/31/22 10:00 (Tylenol) amlodipine 5 mg tablet 5 mg PO AMHS 11/26/23 12/29/23 Unknown clopidogrel 75 mg tablet 75 mg PO QAM 11/26/23 12/29/23 Unknown pyridostigmine bromide 180 mg 180 mg PO QAM 11/26/23 12/29/23 Unknown tablet,extended release Vitamin D3 1,000 units PO DAILY 12/29/23 12/29/23 Unknown aspirin 81 mg chewable tablet 81 mg PO QAM 12/29/23 12/29/23 Unknown cyanocobalamin (vitamin B-12) 1,000 mcg PO QAM 12/29/23 12/29/23 Unknown 1,000 mcg tablet (Vitamin B-12) Active Medications Generic Name Dose Route Start Last Admin Trade Name Freq PRN Reason Stop Dose Admin Acetaminophen 650 mg 12/29/23 19:49 01/02/24 14:45 Acetaminophen 325 Mg Tab PO 01/28/24 19:48 650 mg QID PRN Administration pain/fever Amiodarone HCl 100 mg 12/30/23 09:00 12/30/23 08:21 Amiodarone 200 Mg Tab PO 01/29/24 08:59 Not Given QAM NAREN Amlodipine Besylate 5 mg 12/30/23 09:00 01/03/24 08:21 Amlodipine Besylate 5 Mg Tab PO 01/29/24 08:59 5 mg AMHS NAREN Administration Aspirin 81 mg 12/30/23 09:00 01/03/24 08:24 Aspirin 81 Mg Chew PO 01/29/24 08:59 81 mg QAM NAREN Administration Clopidogrel Bisulfate 75 mg 12/30/23 09:00 01/03/24 08:21 Clopidogrel Bisulfate 75 Mg Tab PO 01/29/24 08:59 75 mg QAM NAREN Administration Cyanocobalamin 1,000 mcg 12/30/23 09:00 01/03/24 08:23 Cyanocobalamin (B-12) 500 Mcg Tablet PO 01/29/24 08:59 1,000 mcg QAM NAREN Administration Heparin Sodium (Porcine) 5,000 units 12/30/23 06:00 01/03/24 05:26 Heparin Sod 5,000 Unit/0.5 Ml Vial SQ 01/29/24 05:59 Not Given Q8 NAREN Insulin Aspart 0 units 12/29/23 21:00 01/03/24 08:19 Insulin Aspart Per Unit Charge SC 01/28/24 20:59 Not Given ACHS NAREN Levothyroxine Sodium 50 mcg 12/30/23 08:35 01/03/24 05:26 Levothyroxine Sodium 50 Mcg Tablet PO 01/29/24 08:34 Not Given DAILYBB NAREN Miscellaneous 15 - 30 gm 12/29/23 20:16 01/03/24 08:20 Carbohydrates For Hypoglycemia PO 01/28/24 20:15 15 gm UD PRN Administration Hypoglycemia Protocol Miscellaneous 1 each 12/30/23 16:00 01/03/24 08:24 Order Awaiting Action: Pyridostigmine Sustained Rel 180 Mg Tabcr N/A 01/29/24 07:59 Not Given QS NAREN Olanzapine 5 mg 12/29/23 23:10 01/02/24 20:50 Olanzapine Zydis 5 Mg Orally Dis. Tab PO 01/28/24 23:09 5 mg HS NAREN Administration Pravastatin Sodium 40 mg 12/30/23 21:00 01/02/24 20:50 Pravastatin Sod 40 Mg Tab PO 01/29/24 20:59 40 mg QPM NAREN Administration Pyridostigmine [place] 30 mg 12/29/23 23:10 01/03/24 08:22 Pyridostigmine [place] 60 Mg Tab PO 01/28/24 23:09 30 mg TID@0730,1200,2100 NAREN Administration
[2024-01-04 10:28] LABS: Hematocrit (blood only) 40.8 % (42.0-52.0); Mean Corpuscular Hgb Conc 31.9 g/dL (32.0-36.0); Mean Corpuscular Volume 91.1 fL (80.0-100.0); Platelet Count 175 K/uL (130-400); RDW Coefficient of Variation 15.9 % (11.5-14.5); RDW Standard Deviation 52.5 fL (36.4-46.3); Red Blood Count 4.48 M/uL (4.70-6.10)
[2024-01-04 10:44] LABS: BUN Creatinine Ratio 19.1 (10-20); Calcium 9.4 mg/dl (8.6-10.3); Creatinine Clr Calc Pharmacy 59.6 ml/min; Est GFR (African American) 87.8 ml/min; Est GFR (Non-African American) 75.7 ml/min; Potassium 3.9 mmol/L (3.5-5.1)
--- NOTE | 2024-01-04 15:34 | Hospitalist Progress Note ---
Date of Service January 04, 2024 Assessment & Plan (1) Encephalopathy: (2) Dysphagia: (3) C. difficile diarrhea: (4) Ambulatory dysfunction: (5) History of myasthenia gravis: (6) Sinus bradycardia: (7) Myasthenia gravis: (8) Atrial fibrillation: (9) DM II (diabetes mellitus, type II), controlled: (10) MDD (major depressive disorder): (11) HTN (hypertension): (12) HLD (hyperlipidemia): Plan: Mr. Huizar is an 83 year old gentleman with history of paroxysmal atrial fibrillation now s/p Watchman 09/28, myasthenia gravis, hypertension, HLD, DMTII, progressive dysphagia who is presented to [facility] initially on 11/26/2022 due to worsening headaches, dysphagia, and episode of confusion. He experienced a progressive neurologic decline and transferred to [facility] [place] on 11/29 for neurologic eval and LP. No clear etiology of patient's decline was revealed. Patient was evaluated by general surgey and not a candidate for PEG placememnt. Patient's course complicated by C diff and completed oral vanc for 14 days on 12/28. Patient then transferred to [facility] on 12/29 while placement is pending for shank piece tacker care. Patient's course since return was notable for SHWETA, which resolved with fluids. Patient stable at this time. No acute events. #SHWETA *resolved Up to 1.6, resolved and IVF fluids discontinued on 01/02 Resolved #Acute Encephalopathy, unclear etiology, stable #Progressive Delirium #Myasthenia Gravis -delirium precautions as able -continue melatonin HS prn -psychiatry evaluated at [place]: started on Abilify as per their recommendations, but later discontinued per palliative medicine recs in favor of olanxipine 5mg qhs -palliative medicine consulted, recommending olanzapine for appetite stimulation and to discontinue Abilify. -surgery consulted and recommended against PEG tube placement due to mentation and high risk of dislodgement -PT/OT consult is following along -Neurology at [place]: recommending to continue ASSEMBLER BILLIARD TABLE pyridostigmine 30 mg three times daily on discharge, and hold ASSEMBLER BILLIARD TABLE pyridostigmine ER 180 mg until neuro follow-up as an outpatient #Abnormal UA UA did not reflex -Repeat infectious workup given profound delirium -UA negative 11/29 #Mild/moderate oropharyngeal dysphagia #Esophageal dysfunction #Progressive dysphagia, +silent aspiration #Increased secretions -NGT placed in [place] and NG tube was also removed on 12/18, per request of family -calorie counting was performed, dietitian following. Oral intake improving with assistance Family meeting held with palliative medicine on 12/25/2023 with plan to continue to monitor mentation and p.o. 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 Continue levothyroxine 50mg #Paroxysmal Atrial Fibrillation s/p watchman #Chronic RBBB #Symptomatic bradycardia [id number] 3, HASBLED 2 01/2022, newly diagnosed A Fib RVR, discharged with amiodarone; discontinued 11/2022, however reverted back to a fib and placed on amio/metoprolol/dilt s/p cardioversion Followed with Dr Mcneil 05/2023 during admission, during that time amiodarone continued, metoprolol Watchman placed 09/2023 -ASSEMBLER BILLIARD TABLE amiodarone 200mg daily -Placed on DAPT post watchman to continue for reportedly 6 months, then asa 81 indefinitely -Continue ASA and plavix -Discontinued amiodarone -No device at this time #Intermittent Hypoglycemia #DMTII Hypogylcemia protocol A1C 6.0 Encourage PO intake #HTN Takes amlodipine and losartan -Discontinue ASSEMBLER BILLIARD TABLE antihypertensives #Carotid stenosis s/p CEA #HLD Continue pravastatin #C Diff colitis S/p oral vanc times 14 days EOT 12/28 #Urinary urgency #Recurrent nephrolithiasis #Renal Cysts -Failed Gemtesa, trospium, myrbetriq, follows Dr. Broussard; OP recommendation include limit salt, prioritize hydration DVT ppx: heparin/SCDs Admit to med surg dispo to LTF Admission and Anticipated Discharge Date Admission Date: December 29, 2023 Subjective Patient evaluated at bedside, Sleeping, awakens but startles initially NAEO Physical Exam Constitutional: WD/WN, vitals as above resting quietly Cardiovascular: bradycardic Gastrointestinal (Abdomen): normal bowel sounds, soft, nontender, no hepatosplenomegaly Results & Data Results & Data Vital Signs (Past 12 Hours) Vital Signs Temp Pulse Resp BP Pulse Ox O2 Del Method 01/04/24 09:08 Room Air 01/04/24 06:41 36.4 C L 63 16 125/64 95 Room Air Laboratory Results Short CBC 01/04/24 Range/Units 10:05 WBC 4.90 (4.8-10.8) K/ul Hgb 13.0 L (14.0-18.0) g/dl Hct 40.8 L (42.0-52.0) % Plt Count 175 (130-400) K/uL BMP 01/04/24 10:05 Sodium 141 Potassium 3.9 Chloride 106 Carbon Dioxide 26 BUN 18 Creatinine 0.94 Glucose 70 Calcium 9.4 Medications Administered Home Medications Medication Instructions Recorded Confirmed Last Taken pravastatin 40 mg tablet 40 mg PO QPM 12/23/21 12/29/23 03/10/23 pyridostigmine bromide 60 mg 30 mg PO TID 12/23/21 12/29/23 03/10/23 tablet (Mestinon) acetaminophen 325 mg capsule 650 mg PO QID PRN Fever Or Pain 01/21/22 12/29/23 10/31/22 10:00 (Tylenol) amlodipine 5 mg tablet 5 mg PO AMHS 11/26/23 12/29/23 Unknown clopidogrel 75 mg tablet 75 mg PO QA 11/26/23 12/29/23 Unknown pyridostigmine bromide 180 mg 180 mg PO QAM 11/26/23 12/29/23 Unknown tablet,extended release Vitamin D3 1,000 units PO DAILY 12/29/23 12/29/23 Unknown aspirin 81 mg chewable tablet 81 mg PO QAM 12/29/23 12/29/23 Unknown cyanocobalamin (vitamin B-12) 1,000 mcg PO QAM 12/29/23 12/29/23 Unknown 1,000 mcg tablet (Vitamin B-12) Active Medications Generic Name Dose Route Start Last Admin Trade Name Freq PRN Reason Stop Dose Admin Acetaminophen 650 mg 12/29/23 19:49 01/02/24 14:45 Acetaminophen 325 Mg Tab PO 01/28/24 19:48 650 mg QID PRN Administration pain/fever Amiodarone HCl 100 mg 12/30/23 09:00 12/30/23 08:21 Amiodarone 200 Mg Tab PO 01/29/24 08:59 Not Given QAM NAREN Amlodipine Besylate 5 mg 12/30/23 09:00 01/04/24 08:09 Amlodipine Besylate 5 Mg Tab PO 01/29/24 08:59 5 mg AMHS NAREN Administration Aspirin 81 mg 12/30/23 09:00 01/04/24 08:10 Aspirin 81 Mg Chew PO 01/29/24 08:59 81 mg QAM NAREN Administration Clopidogrel Bisulfate 75 mg 12/30/23 09:00 01/04/24 08:10 Clopidogrel Bisulfate 75 Mg Tab PO 01/29/24 08:59 75 mg QAM NAREN Administration Cyanocobalamin 1,000 mcg 12/30/23 09:00 01/04/24 08:10 Cyanocobalamin (B-12) 500 Mcg Tablet PO 01/29/24 08:59 1,000 mcg QAM NAREN Administration Heparin Sodium (Porcine) 5,000 units 12/30/23 06:00 01/04/24 13:05 Heparin Sod 5,000 Unit/0.5 Ml Vial SQ 01/29/24 05:59 5,000 units Q8 NAREN Administration Insulin Aspart 0 units 12/29/23 21:00 01/04/24 11:52 Insulin Aspart Per Unit Charge SC 01/28/24 20:59 Not Given ACHS NAREN Levothyroxine Sodium 50 mcg 12/30/23 08:35 01/04/24 05:21 Levothyroxine Sodium 50 Mcg Tablet PO 01/29/24 08:34 Not Given DAILYBB NAREN Miscellaneous 15 - 30 gm 12/29/23 20:16 01/03/24 08:20 Carbohydrates For Hypoglycemia PO 01/28/24 20:15 15 gm UD PRN Administration Hypoglycemia Protocol Olanzapine 5 mg 12/29/23 23:10 01/03/24 22:09 Olanzapine Zydis 5 Mg Orally Dis. Tab PO 01/28/24 23:09 Not Given HS NAREN Pravastatin Sodium 40 mg 12/30/23 21:00 01/03/24 22:09 Pravastatin Sod 40 Mg Tab PO 01/29/24 20:59 Not Given QPM NAREN Pyridostigmine [place] 30 mg 12/29/23 23:10 01/04/24 11:10 Pyridostigmine [place] 60 Mg Tab PO 01/28/24 23:09 Not Given TID@0730,1200,2100 NAREN
[2024-01-04] MEDS: MELATONIN 3 MG TAB PO PRN (21:44)
--- NOTE | 2024-01-05 13:50 | Hospitalist Progress Note ---
Date of Service January 05, 2024 Assessment & Plan (1) Encephalopathy: (2) Dysphagia: (3) C. difficile diarrhea: (4) Ambulatory dysfunction: (5) History of myasthenia gravis: (6) Sinus bradycardia: (7) Myasthenia gravis: (8) Atrial fibrillation: (9) DM II (diabetes mellitus, type II), controlled: (10) MDD (major depressive disorder): (11) HTN (hypertension): (12) HLD (hyperlipidemia): Plan: Mr. Huizar is an 83 year old gentleman with history of paroxysmal atrial fibrillation now s/p Watchman 09/28, myasthenia gravis, hypertension, HLD, DMTII, progressive dysphagia who is presented to [facility] ED initially on 11/26/2022 due to worsening headaches, dysphagia, and episode of confusion. He experienced a progressive neurologic decline and transferred to [facility] on 11/29 for neurologic eval and LP. No clear etiology of patient's decline was revealed. Patient was evaluated by general surgey and not a candidate for PEG placememnt. Patient's course complicated by C diff and completed oral vanc for 14 days on 12/28. Patient then transferred to [facility] on 12/29 while placement is pending for fpc care. Patient's course since return was notable for SHWETA, which resolved with fluids. Patient stable at this time. No acute events. Patient is confused when awakened and takes time to orient, but will ask for medications and do better with commands later in the mornings. #SHWETA *resolved Up to 1.6, resolved and IVF fluids discontinued on 01/02 Resolved #Acute Encephalopathy, unclear etiology, stable #Progressive Delirium #Myasthenia Gravis -delirium precautions as able -continue melatonin HS prn -psychiatry evaluated at [facility]: started on Abilify as per their recommendations, but later discontinued per palliative medicine recs in favor of olanxipine 5mg qhs -palliative medicine consulted, recommending olanzapine for appetite stimulation and to discontinue Abilify. -surgery consulted and recommended against PEG tube placement due to mentation and high risk of dislodgement -PT/OT consult is following along -Neurology at [facility]: recommending to continue MAINTENANCE ADVISOR pyridostigmine 30 mg three times daily on discharge, and hold MAINTENANCE ADVISOR pyridostigmine ER 180 mg until neuro follow-up as an outpatient #Abnormal UA UA did not reflex -Repeat infectious workup given profound delirium -UA negative 11/29 #Mild/moderate oropharyngeal dysphagia #Esophageal dysfunction #Progressive dysphagia, +silent aspiration #Increased secretions -NGT placed in [facility] and NG tube was also removed on 12/18, per request of family -calorie counting was performed, dietitian following. Oral intake improving with assistance Family meeting held with palliative medicine on 12/25/2023 with plan to continue to monitor mentation and p.o. 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 Continue levothyroxine 50mg #Paroxysmal Atrial Fibrillation s/p watchman #Chronic RBBB #Symptomatic bradycardia [id number] 3, HASBLED 2 01/2022, newly diagnosed A Fib RVR, discharged with amiodarone; discontinued 11/2022, however reverted back to a fib and placed on amio/metoprolol/dilt s/p cardioversion Followed with Dr Mcneil 05/2023 during admission, during that time amiodarone continued, metoprolol Watchman placed 09/2023 -MAINTENANCE ADVISOR amiodarone 200mg daily -Placed on DAPT post watchman to continue for reportedly 6 months, then asa 81 indefinitely -Continue ASA and plavix -Discontinued amiodarone -No device at this time #Intermittent Hypoglycemia #DMTII Hypogylcemia protocol A1C 6.0 Encourage PO intake #HTN Takes amlodipine and losartan -Discontinue MAINTENANCE ADVISOR antihypertensives #Carotid stenosis s/p CEA #HLD Continue pravastatin #C Diff colitis S/p oral vanc times 14 days EOT 12/28 Removed precautions #Urinary urgency #Recurrent nephrolithiasis #Renal Cysts -Failed Gemtesa, trospium, myrbetriq, follows Dr. Broussard; OP recommendation include limit salt, prioritize hydration DVT ppx: heparin/SCDs Admit to med surg dispo to LTF Admission and Anticipated Discharge Date Admission Date: December 29, 2023 Subjective Patient evaluated at bedside Agitated when awakening, but calms and reorients slowly no acute events overnight Physical Exam Constitutional: agitated when attempting to awaken patient Respiratory: normal respiratory effort, lungs clear to auscultation Cardiovascular: bradycardic Results & Data Results & Data Vital Signs (Past 12 Hours) Vital Signs Temp Pulse Resp BP Pulse Ox O2 Del Method 01/05/24 07:17 36.6 C 54 L 16 183/64 H 98 Room Air Medications Administered Home Medications Medication Instructions Recorded Confirmed Last Taken pravastatin 40 mg tablet 40 mg PO QPM 12/23/21 12/29/23 03/10/23 pyridostigmine bromide 60 mg 30 mg PO TID 12/23/21 12/29/23 03/10/23 tablet (Mestinon) acetaminophen 325 mg capsule 650 mg PO QID PRN Fever Or Pain 01/21/22 12/29/23 10/31/22 10:00 (Tylenol) amlodipine 5 mg tablet 5 mg PO AMHS 11/26/23 12/29/23 Unknown clopidogrel 75 mg tablet 75 mg PO QA 11/26/23 12/29/23 Unknown pyridostigmine bromide 180 mg 180 mg PO QA 11/26/23 12/29/23 Unknown tablet,extended release Vitamin D3 1,000 units PO DAILY 12/29/23 12/29/23 Unknown aspirin 81 mg chewable tablet 81 mg PO QA 12/29/23 12/29/23 Unknown cyanocobalamin (vitamin B-12) 1,000 mcg PO QAM 12/29/23 12/29/23 Unknown 1,000 mcg tablet (Vitamin B-12) Active Medications Generic Name Dose Route Start Last Admin [facility] PR[facility] Reason Stop Dose Admin Acetaminophen 650 mg 12/29/23 19:49 01/02/24 14:45 Acetaminophen 325 Mg Tab PO 01/28/24 19:48 650 mg QID PRN Administration pain/fever Amiodarone HCl 100 mg 12/30/23 09:00 12/30/23 08:21 Amiodarone 200 Mg Tab PO 01/29/24 08:59 Not Given [facility] Amlodipine Besylate 5 mg 12/30/23 09:00 01/05/24 07:44 Amlodipine Besylate 5 Mg Tab PO 01/29/24 08:59 5 mg [facility] Administration Aspirin 81 mg 12/30/23 09:00 01/05/24 07:45 Aspirin 81 Mg Chew PO 01/29/24 08:59 81 mg QAM NAREN Administration Clopidogrel Bisulfate 75 mg 12/30/23 09:00 01/05/24 07:45 Clopidogrel Bisulfate 75 Mg Tab PO 01/29/24 08:59 75 mg QAM NAREN Administration Cyanocobalamin 1,000 mcg 12/30/23 09:00 01/05/24 07:45 Cyanocobalamin (B-12) 500 Mcg Tablet PO 01/29/24 08:59 1,000 mcg QAM NAREN Administration Heparin Sodium (Porcine) 5,000 units 12/30/23 06:00 01/05/24 05:54 Heparin Sod 5,000 Unit/0.5 Ml Vial SQ 01/29/24 05:59 Not Given Q8 NAREN Insulin Aspart 0 units 12/29/23 21:00 01/05/24 12:21 Insulin Aspart Per Unit Charge SC 01/28/24 20:59 3 units ACHS NAREN Administration Levothyroxine Sodium 50 mcg 12/30/23 08:35 01/05/24 05:55 Levothyroxine Sodium 50 Mcg Tablet PO 01/29/24 08:34 Not Given DAILYBB NAREN Melatonin 3 mg 12/29/23 23:32 01/04/24 21:44 Melatonin 3 Mg Tab PO 01/28/24 23:31 3 mg HS PRN Administration Sleep Miscellaneous 15 - 30 gm 12/29/23 20:16 01/03/24 08:20 Carbohydrates For Hypoglycemia PO 01/28/24 20:15 15 gm UD PRN Administration Hypoglycemia Protocol Olanzapine 5 mg 12/29/23 23:10 01/04/24 21:32 Olanzapine Zydis 5 Mg Orally Dis. Tab PO 01/28/24 23:09 5 mg HS NAREN Administration Pravastatin Sodium 40 mg 12/30/23 21:00 01/04/24 21:26 Pravastatin Sod 40 Mg Tab PO 01/29/24 20:59 40 mg QPM NAREN Administration Pyridostigmine [place] 30 mg 12/29/23 23:10 01/05/24 12:01 Pyridostigmine [place] 60 Mg Tab PO 01/28/24 23:09 30 mg TID@0730,1200,2100 NAREN Administration
--- NOTE | 2024-01-06 12:39 | Hospitalist Progress Note ---
Date of Service January 06, 2024 Assessment & Plan (1) Encephalopathy: (2) Dysphagia: (3) C. difficile diarrhea: (4) Ambulatory dysfunction: (5) History of myasthenia gravis: (6) Sinus bradycardia: (7) Myasthenia gravis: (8) Atrial fibrillation: (9) DM II (diabetes mellitus, type II), controlled: (10) MDD (major depressive disorder): (11) HTN (hypertension): (12) HLD (hyperlipidemia): Plan: Mr. Huizar is an 83 year old gentleman with history of paroxysmal atrial fibrillation now s/p Watchman 09/28, myasthenia gravis, hypertension, HLD, DMTII, progressive dysphagia who is presented to [facility] ED initially on 11/26/2022 due to worsening headaches, dysphagia, and episode of confusion. He experienced a progressive neurologic decline and transferred to [facility] on 11/29 for neurologic eval and LP. No clear etiology of patient's decline was revealed. Patient was evaluated by general surgey and not a candidate for PEG placement. Patient's course complicated by C diff and completed oral vanc for 14 days on 12/28. Patient then transferred to [facility] on 12/29 while placement is pending for superintendent container terminal care. Patient's course since return was notable for SHWETA, which resolved with fluids. Patient stable at this time. No acute events. Patient is confused when awakened and takes time to orient, but will ask for medications and do better with commands later in the mornings. Patient still awaiting hopeful placement for the beginning of the week. #SHWETA *resolved Up to 1.6, resolved and IVF fluids discontinued on 01/02 Resolved #Acute Encephalopathy, unclear etiology, stable #Progressive Delirium #Myasthenia Gravis -delirium precautions as able -continue melatonin HS prn -psychiatry evaluated at [facility]: started on Abilify as per their recommendations, but later discontinued per palliative medicine recs in favor of olanxipine 5mg qhs -palliative medicine consulted at [facility] , recommending olanzapine for appetite stimulation and to discontinue Abilify. -surgery consulted and recommended against PEG tube placement due to mentation and high risk of dislodgement -PT/OT consult is following along -Neurology at [facility]: recommending to continue BRUSH OR BROOM CUTTER pyridostigmine 30 mg three times daily on discharge, and hold BRUSH OR BROOM CUTTER pyridostigmine ER 180 mg until neuro follow-up as an outpatient #Abnormal UA UA did not reflex -Repeat infectious workup given profound delirium -UA negative 11/29 #Mild/moderate oropharyngeal dysphagia #Esophageal dysfunction #Progressive dysphagia, +silent aspiration #Increased secretions -NGT placed in [facility] and NG tube was also removed on 12/18, per request of family -calorie counting was performed, dietitian following. Oral intake improving with assistance Family meeting held with palliative medicine on 12/25/2023 with plan to continue to monitor mentation and p.o. 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 Continue levothyroxine 50mg #Paroxysmal Atrial Fibrillation s/p watchman #Chronic RBBB #Symptomatic bradycardia [id number] 3, HASBLED 2 01/2022, newly diagnosed A Fib RVR, discharged with amiodarone; discontinued 11/2022, however reverted back to a fib and placed on amio/metoprolol/dilt s/p cardioversion Followed with Dr Mcneil 05/2023 during admission, during that time amiodarone continued, metoprolol Watchman placed 09/2023 -BRUSH OR BROOM CUTTER amiodarone 200mg daily -Placed on DAPT post watchman to continue for reportedly 6 months, then asa 81 indefinitely -Continue ASA and plavix -Discontinued amiodarone -No device at this time #Intermittent Hypoglycemia #DMTII Hypogylcemia protocol A1C 6.0 Encourage PO intake #HTN Takes amlodipine and losartan -Discontinue BRUSH OR BROOM CUTTER antihypertensives #Carotid stenosis s/p CEA #HLD Continue pravastatin #C Diff colitis S/p oral vanc times 14 days EOT 12/28 Removed precautions #Urinary urgency #Recurrent nephrolithiasis #Renal Cysts -Failed Gemtesa, trospium, myrbetriq, follows Dr. Broussard; OP recommendation include limit salt, prioritize hydration DVT ppx: heparin/SCDs Admit to med surg dispo to [facility] when placement available Admission and Anticipated Discharge Date Admission Date: December 29, 2023 Subjective Patient evaluated at bedside. Sleeping, attempted to awaken but disoriented, notable 5-10minutes of disorientation until able to participate in exam Denied any acute concerns Physical Exam Constitutional: resting comfortably, agitated when awakening, then pleasant Cardiovascular: bradycardic Gastrointestinal (Abdomen): normal bowel sounds, soft, nontender, no hepatosplenomegaly Results & Data Results & Data Vital Signs (Past 12 Hours) Vital Signs Temp Pulse Resp BP Pulse Ox O2 Del Method 01/06/24 12:19 36.7 C 51 L 17 94/58 L 94 Room Air Medications Administered Home Medications Medication Instructions Recorded Confirmed Last Taken pravastatin 40 mg tablet 40 mg PO QPM 12/23/21 12/29/23 03/10/23 pyridostigmine bromide 60 mg 30 mg PO TID 12/23/21 12/29/23 03/10/23 tablet (Mestinon) acetaminophen 325 mg capsule 650 mg PO QID PRN Fever Or Pain 01/21/22 12/29/23 10/31/22 10:00 (Tylenol) amlodipine 5 mg tablet 5 mg PO AMHS 11/26/23 12/29/23 Unknown clopidogrel 75 mg tablet 75 mg PO QAM 11/26/23 12/29/23 Unknown pyridostigmine bromide 180 mg 180 mg PO QAM 11/26/23 12/29/23 Unknown tablet,extended release Vitamin D3 1,000 units PO DAILY 12/29/23 12/29/23 Unknown aspirin 81 mg chewable tablet 81 mg PO QAM 12/29/23 12/29/23 Unknown cyanocobalamin (vitamin B-12) 1,000 mcg PO QAM 12/29/23 12/29/23 Unknown 1,000 mcg tablet (Vitamin B-12) Active Medications Generic Name Dose Route Start Last Admin Trade Name Freq PRN Reason Stop Dose Admin Acetaminophen 650 mg 12/29/23 19:49 01/02/24 14:45 Acetaminophen 325 Mg Tab PO 01/28/24 19:48 650 mg QID PRN Administration pain/fever Amiodarone HCl 100 mg 12/30/23 09:00 12/30/23 08:21 Amiodarone 200 Mg Tab PO 01/29/24 08:59 [facility] 81 mg 12/30/23 09:00 01/06/24 07:42 Aspirin 81 Mg Chew PO 01/29/24 08:59 81 mg QAM NAREN Administration Clopidogrel Bisulfate 75 mg 12/30/23 09:00 01/06/24 07:39 Clopidogrel Bisulfate 75 Mg Tab PO 01/29/24 08:59 75 mg QAM NAREN Administration Cyanocobalamin 1,000 mcg 12/30/23 09:00 01/06/24 07:38 Cyanocobalamin (B-12) 500 Mcg Tablet PO 01/29/24 08:59 1,000 mcg QAM NAREN Administration Heparin Sodium (Porcine) 5,000 units 12/30/23 06:00 01/06/24 06:30 Heparin Sod 5,000 Unit/0.5 Ml Vial SQ 01/29/24 05:59 Not Given Q8 NAREN Insulin Aspart 0 units 12/29/23 21:00 01/06/24 12:14 Insulin Aspart Per Unit Charge SC 01/28/24 20:59 1 units ACHS NAREN Administration Levothyroxine Sodium 50 mcg 12/30/23 08:35 01/06/24 07:42 Levothyroxine Sodium 50 Mcg Tablet PO 01/29/24 08:34 50 mcg DAILYBB NAREN Administration Melatonin 3 mg 12/29/23 23:32 01/04/24 21:44 Melatonin 3 Mg Tab PO 01/28/24 23:31 3 mg HS PRN Administration Sleep Miscellaneous 15 - 30 gm 12/29/23 20:16 01/03/24 08:20 Carbohydrates For Hypoglycemia PO 01/28/24 20:15 15 gm UD PRN Administration Hypoglycemia Protocol Olanzapine 5 mg 12/29/23 23:10 01/05/24 22:41 Olanzapine Zydis 5 Mg Orally Dis. Tab PO 01/28/24 23:09 Not Given HS NAREN Pravastatin Sodium 40 mg 12/30/23 21:00 01/05/24 22:42 Pravastatin Sod 40 Mg Tab PO 01/29/24 20:59 Not Given QPM NAREN Pyridostigmine [place] 30 mg 12/29/23 23:10 01/06/24 12:08 Pyridostigmine [place] 60 Mg Tab PO 01/28/24 23:09 30 mg TID@0730,1200,2100 NAREN Administration
[2024-01-07 06:37] LABS: Hematocrit (blood only) 40.1 % (42.0-52.0); Hemoglobin 12.8 g/dl (14.0-18.0); Mean Corpuscular Hemoglobin 28.8 pg (25.0-34.0); Mean Corpuscular Hgb Conc 31.9 g/dL (32.0-36.0); Mean Corpuscular Volume 90.3 fL (80.0-100.0); Mean Platelet Volume 11.7 fL (9.4-12.4); Platelet Count 175 K/uL (130-400); RDW Coefficient of Variation 16.6 % (11.5-14.5); RDW Standard Deviation 54.5 fL (36.4-46.3); Red Blood Count 4.44 M/uL (4.70-6.10); White Blood Count 3.66 K/ul (4.8-10.8)
[2024-01-07 07:05] LABS: Potassium 3.8 mmol/L (3.5-5.1)
[2024-01-07 07:11] LABS: BUN Creatinine Ratio 26.9 (10-20); Creatinine Clr Calc Pharmacy 53.9 ml/min; Est GFR (African American) 77.7 ml/min
--- NOTE | 2024-01-07 13:21 | Hospitalist Progress Note ---
Date of Service January 07, 2024 Assessment & Plan (1) Encephalopathy: (2) Dysphagia: (3) C. difficile diarrhea: (4) Ambulatory dysfunction: (5) History of myasthenia gravis: (6) Sinus bradycardia: (7) Myasthenia gravis: (8) Atrial fibrillation: (9) DM II (diabetes mellitus, type II), controlled: (10) MDD (major depressive disorder): (11) HTN (hypertension): (12) HLD (hyperlipidemia): Plan: Mr. Huizar is an 83 year old gentleman with history of paroxysmal atrial fibrillation now s/p Watchman 09/28, myasthenia gravis, hypertension, HLD, DMTII, progressive dysphagia who is presented to [facility] ED initially on 11/26/2022 due to worsening headaches, dysphagia, and episode of confusion. He experienced a progressive neurologic decline and transferred to [facility] on 11/29 for neurologic eval and LP. No clear etiology of patient's decline was revealed. Patient was evaluated by general surgey and not a candidate for PEG placement. Patient's course complicated by C diff and completed oral vanc for 14 days on 12/28. Patient then transferred to [facility] on 12/29 while placement is pending for terminologist care. Patient's course since return was notable for SHWETA, which resolved with fluids. Patient stable at this time. No acute events. Patient is confused when awakened and takes time to orient, but will ask for medications and do better with commands later in the mornings. Patient still awaiting hopeful placement for the beginning of the week. Patient conversational and pleasant when allowed to awaken by own volition. Patient startles very easily and is not cooperative when being awakened. #SHWETA *resolved Up to 1.6, resolved and IVF fluids discontinued on 01/02 Resolved, remains stable #Acute Encephalopathy, unclear etiology, stable #Progressive Delirium #Myasthenia Gravis -delirium precautions as able -continue melatonin HS prn -psychiatry evaluated at [facility]: started on Abilify as per their recommendations, but later discontinued per palliative medicine recs in favor of olanxipine 5mg qhs -palliative medicine consulted at [facility]SH , recommending olanzapine for appetite stimulation and to discontinue Abilify. -surgery consulted and recommended against PEG tube placement due to mentation and high risk of dislodgement -PT/OT consult is following along -Neurology at [facility]: recommending to continue CLASSIFICATION CONTROL CLERK pyridostigmine 30 mg three times daily on discharge, and hold CLASSIFICATION CONTROL CLERK pyridostigmine ER 180 mg until neuro follow-up as an outpatient #Abnormal UA UA did not reflex -Repeat infectious workup given profound delirium -UA negative 11/29 #Mild/moderate oropharyngeal dysphagia #Esophageal dysfunction #Progressive dysphagia, +silent aspiration #Increased secretions -NGT placed in [facility] and NG tube was also removed on 12/18, per request of family -calorie counting was performed, dietitian following. Oral intake improving with assistance Family meeting held with palliative medicine on 12/25/2023 with plan to continue to monitor mentation and p.o. 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 Continue levothyroxine 50mg #Paroxysmal Atrial Fibrillation s/p watchman #Chronic RBBB #Symptomatic bradycardia [id number] 3, HASBLED 2 01/2022, newly diagnosed A Fib RVR, discharged with amiodarone; discontinued 11/2022, however reverted back to a fib and placed on amio/metoprolol/dilt s/p cardioversion Followed with Dr Mcneil 05/2023 during admission, during that time amiodarone continued, metoprolol Watchman placed 09/2023 -CLASSIFICATION CONTROL CLERK amiodarone 200mg daily -Placed on DAPT post watchman to continue for reportedly 6 months, then asa 81 indefinitely -Continue ASA and plavix -Discontinued amiodarone -No device at this time #Intermittent Hypoglycemia #DMTII Hypogylcemia protocol A1C 6.0 Encourage PO intake #HTN Takes amlodipine and losartan -Discontinue CLASSIFICATION CONTROL CLERK antihypertensives #Carotid stenosis s/p CEA #HLD Continue pravastatin #C Diff colitis S/p oral vanc times 14 days EOT 12/28 Removed precautions #Urinary urgency #Recurrent nephrolithiasis #Renal Cysts -Failed Gemtesa, trospium, myrbetriq, follows Dr. Broussard; OP recommendation include limit salt, prioritize hydration DVT ppx: heparin/SCDs Admit to med surg dispo to LTF when placement available Admission and Anticipated Discharge Date Admission Date: December 29, 2023 Subjective Patient evaluated at bedside Notably awake today and conversational. Alert to self. Requesting bananas. Overall pleasant however Physical Exam Respiratory: normal respiratory effort, lungs clear to auscultation Cardiovascular: bradycardic Results & Data Results & Data Vital Signs (Past 12 Hours) Vital Signs Pulse Pulse Resp BP Pulse Ox O2 Del Method 01/07/24 07:29 42 L 18 123/65 97 Room Air 01/07/24 05:17 48 L 117/68 Laboratory Results Short CBC 01/07/24 Range/Units 05:47 WBC 3.66 L (4.8-10.8) K/ul Hgb 12.8 L (14.0-18.0) g/dl Hct 40.1 L (42.0-52.0) % Plt Count 175 (130-400) K/uL BMP 01/07/24 05:47 Sodium 141 Potassium 3.8 Chloride 108 H Carbon Dioxide 27 BUN 28 H Creatinine 1.04 Glucose 75 Calcium 9.0 Medications Administered Home Medications Medication Instructions Recorded Confirmed Last Taken pravastatin 40 mg tablet 40 mg PO QPM 12/23/21 12/29/23 03/10/23 pyridostigmine bromide 60 mg 30 mg PO TID 12/23/21 12/29/23 03/10/23 tablet (Mestinon) acetaminophen 325 mg capsule 650 mg PO QID PRN Fever Or Pain 01/21/22 12/29/23 10/31/22 10:00 (Tylenol) amlodipine 5 mg tablet 5 mg PO AMHS 11/26/23 12/29/23 Unknown clopidogrel 75 mg tablet 75 mg PO QAM 11/26/23 12/29/23 Unknown pyridostigmine bromide 180 mg 180 mg PO QAM 11/26/23 12/29/23 Unknown tablet,extended release Vitamin D3 1,000 units PO DAILY 12/29/23 12/29/23 Unknown aspirin 81 mg chewable tablet 81 mg PO QAM 12/29/23 12/29/23 Unknown cyanocobalamin (vitamin B-12) 1,000 mcg PO QAM 12/29/23 12/29/23 Unknown 1,000 mcg tablet (Vitamin B-12) Active Medications Generic Name Dose Route Start Last Admin Trade Name Hemalq PRN Reason Stop Dose Admin Acetaminophen 650 mg 12/29/23 19:49 01/07/24 06:05 Acetaminophen 325 Mg Tab PO 01/28/24 19:48 650 mg QID PRN Administration pain/fever Amiodarone HCl 100 mg 12/30/23 09:00 12/30/23 08:21 Amiodarone 200 Mg Tab PO 01/29/24 08:59 Not Given QAM NAREN Aspirin 81 mg 12/30/23 09:00 01/07/24 07:25 Aspirin 81 Mg Chew PO 01/29/24 08:59 81 mg QAM NAREN Administration Clopidogrel Bisulfate 75 mg 12/30/23 09:00 01/07/24 08:06 Clopidogrel Bisulfate 75 Mg Tab PO 01/29/24 08:59 75 mg QAM NAREN Administration Cyanocobalamin 1,000 mcg 12/30/23 09:00 01/07/24 07:25 Cyanocobalamin (B-12) 500 Mcg Tablet PO 01/29/24 08:59 1,000 mcg QAM NAREN Administration Heparin Sodium (Porcine) 5,000 units 12/30/23 06:00 01/07/24 06:06 Heparin Sod 5,000 Unit/0.5 Ml Vial SQ 01/29/24 05:59 5,000 units Q8 NAREN Administration Insulin Aspart 0 units 12/29/23 21:00 01/07/24 12:13 Insulin Aspart Per Unit Charge SC 01/28/24 20:59 1 units ACHS NAREN Administration Levothyroxine Sodium 50 mcg 12/30/23 08:35 01/07/24 05:17 Levothyroxine Sodium 50 Mcg Tablet PO 01/29/24 08:34 50 mcg DAILYBB NAREN Administration Melatonin 3 mg 12/29/23 23:32 01/04/24 21:44 Melatonin 3 Mg Tab PO 01/28/24 23:31 3 mg HS PRN Administration Sleep Miscellaneous 15 - 30 gm 12/29/23 20:16 01/03/24 08:20 Carbohydrates For Hypoglycemia PO 01/28/24 20:15 15 gm UD PRN Administration Hypoglycemia Protocol Olanzapine 5 mg 12/29/23 23:10 01/06/24 22:12 Olanzapine Zydis 5 Mg Orally Dis. Tab PO 01/28/24 23:09 Not Given HS NAREN Pravastatin Sodium 40 mg 12/30/23 21:00 01/05/24 22:42 Pravastatin Sod 40 Mg Tab PO 01/29/24 20:59 Not Given QPM NAREN Pyridostigmine [place] 30 mg 12/29/23 23:10 01/07/24 12:07 Pyridostigmine [place] 60 Mg Tab PO 01/28/24 23:09 30 mg TID@0730,1200,2100 NAREN Administration
--- NOTE | 2024-01-08 13:18 | Discharge Summary ---
Discharge Summary Date of Service January 08, 2024 Notes For Next Care Provider Patient has been deemed not a surgical candidate for PEG nor pacemaker placement Medication Changes From Visit Discontinued home antihypertensives (losartan and amlodipine) Discontinue Amiodarone Holding ER Pyridiostigmine 190mg qhs until follow up Added Levothyroxine 50mcg Added Olanzapine 5mg qhs Admission HPI Per Admitting Provider Patient is 83-year-old male with PMH HTN, HLD, atrial fibrillation not on anticoagulation due to history SAH, s/p watchman 09/2023, DM II, myasthenia gravis, depression, progressive dysphagia. History obtained from inpatient and outpatient chart review. Patient admitted [facility] 11/26/2023-11/29/2023 for dysphagia, altered mental status. During admission patient with progressive encephalopathy, delirium and progressive issues with dysphagia. Had workup for meningitis encephalitis, MRI without acute findings except for generalized cerebral atrophy, EEG consistent with encephalopathy without evidence of epileptiform. Had fevers without any clear source of infection. Secondary to decline patient was transferred to [facility] for further workup and imaging. Admission notes from [facility] reviewed. Initially admitted to neurology service. Had prolonged hospitalization with continue encephalopathy and delirium. Was transferred to medicine service on 12/04/23 for further workup of metabolic etiology. Had thorough workup for metabolic, infectious, inflammatory, seizure, stroke etiologies without significant clear etiology There was no recommendation for PEG tube placement due to likelihood of dislodgment. His NG tube has been removed. Had palliative consult Patient diagnosed with C. difficile on 12/13/2023 and initially started on oral vancomycin which was then switched to IV Flagyl for 2 days. Diarrhea had worsened with IV Flagyl and was switched back to oral vancomycin to complete 14- day course. Course to be completed on 12/29/23. He was noted to have TSH > 10 and was started on levothyroxine 50 mcg daily During hospitalization had asymptomatic sinus bradycardia. Amiodarone was held Had noted left great toenail discoloration with PORSHA without concerns for PAD CT abdomen pelvis showed multiple small bilateral renal cysts and was recommended to have further outpatient follow-up Olanzapine at bedtime per palliative Vitamin D suggested Losartan Dcd Reported during hospital course patient became more awake and alert and had started to interact with family. It was suggested to continue on pyridostigmine 30mg TID per neurology with plan to hold his prior to arrival dose of 180mg daily until further PCP follow up Patient diet was pureed and mildly thick liquids Patient transferred from [facility] back to [facility] on 12/29/23 per patient and family request as closer to patient's home and family Patient seen and examined in room 321. Currently awake is oriented to person only. Does have mumbled speech. Is able to follow basic commands. Further history and ROS is not able to be obtained from patient at this time. Admission Exam Per Admitting Provider General: no acute distress, WDWN Head: normocephalic, atraumatic Eyes: conjunctiva non-injected, anicteric ENT: normal inspection external ears, nose, mucous membranes moist Neck: supple, trachea midline Lungs: clear, no respiratory distress, no wheezing/rhonchi/rales CV: irregularly irregular, rate 58, no pretibial edema Abd: normal BS, soft, non-tender to palpation Ext: no cyanosis, no calf tenderness Neuro: Awake and alert to person only. Currently calm lying in bed. +mumbled speech. Able to follow simple commands and can move bilateral upper and lower extremities Skin: warm, dry, left great toe with black discoloration without surrounding erythema Principal Dx & Hospital Course #1 = Principal Diagnosis (1) Encephalopathy: (2) Dysphagia: (3) C. difficile diarrhea: (4) Ambulatory dysfunction: (5) History of myasthenia gravis: (6) Sinus bradycardia: (7) Myasthenia gravis: (8) Atrial fibrillation: (9) DM II (diabetes mellitus, type II), controlled: (10) MDD (major depressive disorder): (11) HTN (hypertension): (12) HLD (hyperlipidemia): Mr. Huizar is an 83 year old gentleman with history of paroxysmal atrial fibrillation now s/p Watchman 09/28, myasthenia gravis, hypertension, HLD, DMTII, progressive dysphagia who is presented to [facility] ED initially on 11/26/2022 due to worsening headaches, dysphagia, and episode of confusion. He experienced a progressive neurologic decline and transferred to [facility] on 11/29 for neurologic eval and LP. No clear etiology of patient's decline was revealed. Patient was evaluated by general surgey and not a candidate for PEG placement. Patient's course complicated by C diff and completed oral vanc for 14 days on 12/28. Patient then transferred to [facility] on 12/29 while placement is pending for termite inspector care. Patient's course since return was notable for SHWETA, which resolved with fluids. Patient stable at this time. No acute events. Patient is confused when awakened and takes time to orient, but will ask for medications and do better with commands later in the mornings. Patient still awaiting hopeful placement for the beginning of the week. Patient conversational and pleasant when allowed to awaken by own volition. Patient startles very easily and is not cooperative when being awakened. Patient to be transfered to [facility] today. #SHWETA *resolved Up to 1.6, resolved and IVF fluids discontinued on 01/02 Resolved, remains stable #Acute Encephalopathy, unclear etiology, stable #Progressive Delirium #Myasthenia Gravis -delirium precautions as able -continue melatonin HS prn -psychiatry evaluated at [facility]: started on Abilify as per their recommendations, but later discontinued per palliative medicine recs in favor of olanxipine 5mg qhs -palliative medicine consulted at [facility] , recommending olanzapine for appetite stimulation and to discontinue Abilify. -surgery consulted and recommended against PEG tube placement due to mentation and high risk of dislodgement -PT/OT consult is following along -Neurology at [facility]: recommending to continue SOIL BIOLOGY TEACHER pyridostigmine 30 mg three times daily on discharge, and hold SOIL BIOLOGY TEACHER pyridostigmine ER 180 mg until neuro follow-up as an outpatient #Abnormal UA UA did not reflex -Repeat infectious workup given profound delirium -UA negative 11/29 #Mild/moderate oropharyngeal dysphagia #Esophageal dysfunction #Progressive dysphagia, +silent aspiration #Increased secretions -NGT placed in [facility] and NG tube was also removed on 12/18, per request of family -calorie counting was performed, dietitian following. Oral intake improving with assistance Family meeting held with palliative medicine on 12/25/2023 with plan to continue to monitor mentation and p.o. intake; continue olanzapine -Continue on pureed food, with thin liquid -Not a candidate for PEG #Recurrent mechanical falls #Ambulatory dysfunction #Prior subdural hematoma -traumatic fall 12/2021 with hematoma noted -PT/OT -Fall precautions, plan for termite inspector placement #Hypothyroidism -TSH 12.54, free T4 0.85, on amiodarone CTM, historically untreated 2/2 ongoing MG Continue levothyroxine 50mg #Paroxysmal Atrial Fibrillation s/p watchman #Chronic RBBB #Symptomatic bradycardia [id number] 3, HASBLED 2 01/2022, newly diagnosed A Fib RVR, discharged with amiodarone; discontinued 11/2022, however reverted back to a fib and placed on amio/metoprolol/dilt s/p cardioversion Followed with Dr Mcneil 05/2023 during admission, during that time amiodarone continued, metoprolol Watchman placed 09/2023 -SOIL BIOLOGY TEACHER amiodarone 200mg daily -Placed on DAPT post watchman to continue for reportedly 6 months, then asa 81 indefinitely -Continue ASA and plavix -Discontinued amiodarone -No device at this time #Intermittent Hypoglycemia #DMTII Hypogylcemia protocol A1C 6.0 Encourage PO intake #HTN Takes amlodipine and losartan -Discontinue SOIL BIOLOGY TEACHER antihypertensives #Carotid stenosis s/p CEA #HLD Continue pravastatin #C Diff colitis S/p oral vanc times 14 days EOT 12/28 Removed precautions #Urinary urgency #Recurrent nephrolithiasis #Renal Cysts -Failed Gemtesa, trospium, myrbetriq, follows Dr. Broussard; OP recommendation include limit salt, prioritize hydration Discharge Exam Constitutional evaluated in the afternoon, patient awake and alert to self and location Respiratory normal respiratory effort, lungs clear to auscultation Cardiovascular bradycardic Updated Medication List Medication Instructions Recorded Confirmed Type pravastatin 40 mg tablet 40 mg PO QPM 12/23/21 12/29/23 History pyridostigmine bromide 60 mg 30 mg PO TID 12/23/21 12/29/23 History tablet (Mestinon) acetaminophen 325 mg capsule 650 mg PO QID PRN Fever Or Pain 01/21/22 12/29/23 History (Tylenol) clopidogrel 75 mg tablet 75 mg PO QAM 11/26/23 12/29/23 History pyridostigmine bromide 180 mg 180 mg PO QAM 11/26/23 12/29/23 History tablet,extended release Vitamin D3 1,000 units PO DAILY 12/29/23 12/29/23 History aspirin 81 mg chewable tablet 81 mg PO QAM 12/29/23 12/29/23 History cyanocobalamin (vitamin B-12) 1,000 mcg PO QAM 12/29/23 12/29/23 History 1,000 mcg tablet (Vitamin B-12) levothyroxine 50 mcg tablet 50 mcg PO DAILYBB #30 tabs 01/08/24 Rx (Synthroid) melatonin 3 mg tablet 3 mg PO HS PRN sleep #30 tabs 01/08/24 Rx olanzapine 5 mg disintegrating 5 mg PO HS #30 tabs 01/08/24 Rx tablet Hospital Stay Data Pending Results Patient Have Any Pending Studies at Discharge: No Discharge Instructions Given to Patient (Per Discharging Provider) Mr. Huizar is an 83 year old gentleman with history of paroxysmal atrial fibri llation now s/p Watchman 09/28, myasthenia gravis, hypertension, HLD, DMTII, progressive dysphagia who is presented to [facility] ED initially on 11/26/2022 due to worsening headaches, dysphagia, and episode of confusion. He experienced a progressive neurologic decline and transferred to [facility] on 11/29 for neurologic evaluation and LP. No clear etiology of patient's decline was revealed. Patient was evaluated by general surgery given dysphagia and not a candidate for PEG placement. Patient's course complicated by C diff and completed oral vanc for 14 days on 12/28. Patient then transferred to [facility] on 12/29 while placement is pending for termite inspector care. Patient's course since return was notable for SHWETA, which resolved with fluids. Patient stable at this time. No acute events. Patient is confused when awakened and takes time to orient, but will ask for medications and do better with commands later in the mornings. Patient still awaiting hopeful placement for the beginning of the week. Patient conversational and pleasant when allowed to awaken by own volition. Patient startles very easily and is not cooperative when being awakened. #SHWETA *resolved Up to 1.6, resolved and IVF fluids discontinued on 01/02 Resolved, remains stable #Acute Encephalopathy, unclear etiology, stable #Progressive Delirium #Myasthenia Gravis -delirium precautions as able -continue melatonin HS prn -psychiatry evaluated at [facility]: started on Abilify as per their recommendations, but later discontinued per palliative medicine recs in favor of olanxipine 5mg qhs -palliative medicine consulted at [facility] , recommending olanzapine for appetite stimulation and to discontinue Abilify. -surgery consulted and recommended against PEG tube placement due to mentation and high risk of dislodgement -PT/OT consult is following along -Neurology at [facility]: recommending to continue SOIL BIOLOGY TEACHER pyridostigmine 30 mg three times daily on discharge, and hold SOIL BIOLOGY TEACHER pyridostigmine ER 180 mg until neuro follow-up as an outpatient #Mild/moderate oropharyngeal dysphagia #Esophageal dysfunction #Progressive dysphagia, +silent aspiration #Increased secretions -NGT placed in [facility] and NG tube was also removed on 12/18, per request of family -calorie counting was performed, dietitian following. Oral intake improving with assistance Family meeting held with palliative medicine on 12/25/2023 with plan to continue to monitor mentation and p.o. intake; continue olanzapine qhs -Continue on pureed food, with thin liquid -Not a candidate for PEG #Hypothyroidism -TSH 12.54, free T4 0.85, on amiodarone CTM, historically untreated 2/2 ongoing MG Continue levothyroxine 50mg #Paroxysmal Atrial Fibrillation s/p watchman #Chronic RBBB #Symptomatic bradycardia [id number] 3, HASBLED 2 01/2022, newly diagnosed A Fib RVR, discharged with amiodarone; discontinued 11/2022, however reverted back to a fib and placed on amio/metoprolol/dilt s/p cardioversion Followed with Dr Mcneil 05/2023 during admission, during that time amiodarone continued, metoprolol Watchman placed 09/2023 -Placed on DAPT post watchman to continue for reportedly 6 months, then asa 81 indefinitely -Continue ASA and plavix -Discontinued amiodarone -No device at this time #Intermittent Hypoglycemia #DMTII Hypogylcemia protocol A1C 6.0 Encourage PO intake #HTN -Discontinue antihypertensives #Carotid stenosis s/p CEA #HLD Continue pravastatin #Urinary urgency #Recurrent nephrolithiasis #Renal Cysts Urology recommendation include limit salt, prioritize hydration Total Time Total Time Spent Total Time Spent (In Minutes): 45
--- NOTE | 2024-01-08 14:07 | Hospitalist Progress Note ---
Date of Service January 08, 2024 Assessment & Plan (1) Encephalopathy: (2) Dysphagia: (3) C. difficile diarrhea: (4) Ambulatory dysfunction: (5) History of myasthenia gravis: (6) Sinus bradycardia: (7) Myasthenia gravis: (8) Atrial fibrillation: (9) DM II (diabetes mellitus, type II), controlled: (10) MDD (major depressive disorder): (11) HTN (hypertension): (12) HLD (hyperlipidemia): Plan Mr. Huizar is an 83 year old gentleman with history of paroxysmal atrial fib rillation now s/p Watchman 09/28, myasthenia gravis, hypertension, HLD, DMTII, progressive dysphagia who is presented to [facility] ED initially on 11/26/2022 due to worsening headaches, dysphagia, and episode of confusion. He experienced a progressive neurologic decline and transferred to [facility] on 11/29 for neurologic eval and LP. No clear etiology of patient's decline was revealed. Patient was evaluated by general surgey and not a candidate for PEG placement. Patient's course complicated by C diff and completed oral vanc for 14 days on 12/28. Patient then transferred to [facility] on 12/29 while placement is pending for intermodal customer service care. Patient's course since return was notable for SHWETA, which resolved with fluids. Patient stable at this time. No acute events. Patient is confused when awakened and takes time to orient, but will ask for medications and do better with commands later in the mornings. Patient still awaiting hopeful placement for the beginning of the week. Patient conversational and pleasant when allowed to awaken by own volition. Patient startles very easily and is not cooperative when being awakened. Patient to be transfered to [facility] today. #SHWETA *resolved Up to 1.6, resolved and IVF fluids discontinued on 01/02 Resolved, remains stable #Acute Encephalopathy, unclear etiology, stable #Progressive Delirium #Myasthenia Gravis -delirium precautions as able -continue melatonin HS prn -psychiatry evaluated at [place]: started on Abilify as per their recommendations, but later discontinued per palliative medicine recs in favor of olanxipine 5mg qhs -palliative medicine consulted at OSH , recommending olanzapine for appetite stimulation and to discontinue Abilify. -surgery consulted and recommended against PEG tube placement due to mentation and high risk of dislodgement -PT/OT consult is following along -Neurology at [place]: recommending to continue FLAT CUTTER pyridostigmine 30 mg three times daily on discharge, and hold FLAT CUTTER pyridostigmine ER 180 mg until neuro follow-up as an outpatient #Abnormal UA UA did not reflex -Repeat infectious workup given profound delirium -UA negative 11/29 #Mild/moderate oropharyngeal dysphagia #Esophageal dysfunction #Progressive dysphagia, +silent aspiration #Increased secretions -NGT placed in [place] and NG tube was also removed on 12/18, per request of family -calorie counting was performed, dietitian following. Oral intake improving with assistance Family meeting held with palliative medicine on 12/25/2023 with plan to continue to monitor mentation and p.o. intake; continue olanzapine -Continue on pureed food, with thin liquid -Not a candidate for PEG #Recurrent mechanical falls #Ambulatory dysfunction #Prior subdural hematoma -traumatic fall 12/2021 with hematoma noted -PT/OT -Fall precautions, plan for alf placement #Hypothyroidism -TSH 12.54, free T4 0.85, on amiodarone CTM, historically untreated 2/2 ongoing MG Continue levothyroxine 50mg #Paroxysmal Atrial Fibrillation s/p watchman #Chronic RBBB #Symptomatic bradycardia [id number] 3, HASBLED 2 01/2022, newly diagnosed A Fib RVR, discharged with amiodarone; discontinued 11/2022, however reverted back to a fib and placed on amio/metoprolol/dilt s/p cardioversion Followed with Dr Mcneil 05/2023 during admission, during that time amiodarone continued, metoprolol Watchman placed 09/2023 -FLAT CUTTER amiodarone 200mg daily -Placed on DAPT post watchman to continue for reportedly 6 months, then asa 81 indefinitely -Continue ASA and plavix -Discontinued amiodarone -No device at this time #Intermittent Hypoglycemia #DMTII Hypogylcemia protocol A1C 6.0 Encourage PO intake #HTN Takes amlodipine and losartan -Discontinue FLAT CUTTER antihypertensives #Carotid stenosis s/p CEA #HLD Continue pravastatin #C Diff colitis S/p oral vanc times 14 days EOT 12/28 Removed precautions #Urinary urgency #Recurrent nephrolithiasis #Renal Cysts -Failed Gemtesa, trospium, myrbetriq, follows Dr. Broussard; OP recommendation include limit salt, prioritize hydration DVT heparin Admission and Anticipated Discharge Date Admission Date: December 29, 2023 Subjective Patient evaluated at bedside NAEO Plan for transfer tomorrow Physical Exam Constitutional: WD/WN, vitals as above awake oriented to self, place Results & Data Results & Data Vital Signs (Past 12 Hours) Vital Signs Temp Pulse Resp BP Pulse Ox O2 Del Method 01/08/24 07:34 37.1 C 55 L 16 110/62 99 Room Air Medications Administered Home Medications Medication Instructions Recorded Confirmed Last Taken pravastatin 40 mg tablet 40 mg PO QPM 12/23/21 12/29/23 03/10/23 pyridostigmine bromide 60 mg 30 mg PO TID 12/23/21 12/29/23 03/10/23 tablet (Mestinon) acetaminophen 325 mg capsule 650 mg PO QID PRN Fever Or Pain 01/21/22 12/29/23 10/31/22 10:00 (Tylenol) clopidogrel 75 mg tablet 75 mg PO QAM 11/26/23 12/29/23 Unknown pyridostigmine bromide 180 mg 180 mg PO QAM 11/26/23 12/29/23 Unknown tablet,extended release Vitamin D3 1,000 units PO DAILY 12/29/23 12/29/23 Unknown aspirin 81 mg chewable tablet 81 mg PO QAM 12/29/23 12/29/23 Unknown cyanocobalamin (vitamin B-12) 1,000 mcg PO QAM 12/29/23 12/29/23 Unknown 1,000 mcg tablet (Vitamin B-12) levothyroxine 50 mcg tablet 50 mcg PO DAILYBB #30 tabs 01/08/24 Unknown (Synthroid) melatonin 3 mg tablet 3 mg PO HS PRN sleep #30 tabs 01/08/24 Unknown olanzapine 5 mg disintegrating 5 mg PO HS #30 tabs 01/08/24 Unknown tablet Active Medications Generic Name Dose Route Start Last Admin Trade Name Freq PRN Reason Stop Dose Admin Acetaminophen 650 mg 12/29/23 19:49 01/08/24 08:09 Acetaminophen 325 Mg Tab PO 01/28/24 19:48 650 mg QID PRN Administration pain/fever Amiodarone HCl 100 mg 12/30/23 09:00 12/30/23 08:21 Amiodarone 200 Mg Tab PO 01/29/24 08:59 Not Given QAM NAREN Aspirin 81 mg 12/30/23 09:00 01/08/24 10:42 Aspirin 81 Mg Chew PO 01/29/24 08:59 81 mg QAM NAREN Administration Clopidogrel Bisulfate 75 mg 12/30/23 09:00 01/08/24 10:42 Clopidogrel Bisulfate 75 Mg Tab PO 01/29/24 08:59 75 mg QAM NAREN Administration Cyanocobalamin 1,000 mcg 12/30/23 09:00 01/08/24 10:42 Cyanocobalamin (B-12) 500 Mcg Tablet PO 01/29/24 08:59 1,000 mcg QAM NAREN Administration Heparin Sodium (Porcine) 5,000 units 12/30/23 06:00 01/08/24 13:15 Heparin Sod 5,000 Unit/0.5 Ml Vial SQ 01/29/24 05:59 Not Given Q8 NAREN Insulin Aspart 0 units 12/29/23 21:00 01/08/24 13:17 Insulin Aspart Per Unit Charge SC 01/28/24 20:59 Not Given ACHS NAREN Levothyroxine Sodium 50 mcg 12/30/23 08:35 01/08/24 05:30 Levothyroxine Sodium 50 Mcg Tablet PO 01/29/24 08:34 50 mcg DAILYBB NAREN Administration Melatonin 3 mg 12/29/23 23:32 01/04/24 21:44 Melatonin 3 Mg Tab PO 01/28/24 23:31 3 mg HS PRN Administration Sleep Miscellaneous 15 - 30 gm 12/29/23 20:16 01/03/24 08:20 Carbohydrates For Hypoglycemia PO 01/28/24 20:15 15 gm UD PRN Administration Hypoglycemia Protocol Olanzapine 5 mg 12/29/23 23:10 01/07/24 21:12 Olanzapine Zydis 5 Mg Orally Dis. Tab PO 01/28/24 23:09 5 mg HS NAREN Administration Pravastatin Sodium 40 mg 12/30/23 21:00 01/07/24 21:12 Pravastatin Sod 40 Mg Tab PO 01/29/24 20:59 40 mg QPM NAREN Administration Pyridostigmine [place] 30 mg 12/29/23 23:10 01/08/24 13:14 Pyridostigmine [place] 60 Mg Tab PO 01/28/24 23:09 30 mg TID@0730,1200,2100 NAREN Administration
--- NOTE | 2024-01-09 13:35 | Discharge Summary ---
Discharge Summary Date of Service January 09, 2024 Notes For Next Care Provider Discussion regarding Pacemaker had multiple times: not a candidate Discussion with surgery regarding PEG: not a candidate Medication Changes From Visit -hold SEWER pyridostigmine ER 180 mg until neuro follow-up as an outpatient -Olanzapine 5mg at bedtime -Levothyroxine 50mcg before breakfast -Discontinued amlodipine and losartan Admission HPI Per Admitting Provider Chief Complaint: Altered mental status Primary Care Provider: Juan August MD Patient is 83-year-old male with PMH HTN, HLD, atrial fibrillation not on anticoagulation due to history SAH, s/p watchman 09/2023, DM II, myasthenia gravis, depression, progressive dysphagia. History obtained from inpatient and outpatient chart review. Patient admitted [facility] 11/26/2023-11/29/2023 for dysphagia, altered mental status. During admission patient with progressive encephalopathy, delirium and progressive issues with dysphagia. Had workup for meningitis encephalitis, MRI without acute findings except for generalized cerebral atrophy, EEG consistent with encephalopathy without evidence of epileptiform. Had fevers without any clear source of infection. Secondary to decline patient was transferred to [facility] for further workup and imaging. Admission notes from [facility] reviewed. Initially admitted to neurology service. Had prolonged hospitalization with continue encephalopathy and delirium. Was transferred to medicine service on 12/04/23 for further workup of metabolic etiology. Had thorough workup for metabolic, infectious, inflammatory, seizure, stroke etiologies without significant clear etiology There was no recommendation for PEG tube placement due to likelihood of dislodgm ent. His NG tube has been removed. Had palliative consult Patient diagnosed with C. difficile on 12/13/2023 and initially started on oral vancomycin which was then switched to IV Flagyl for 2 days. Diarrhea had worsened with IV Flagyl and was switched back to oral vancomycin to complete 14- day course. Course to be completed on 12/29/23. He was noted to have TSH > 10 and was started on levothyroxine 50 mcg daily During hospitalization had asymptomatic sinus bradycardia. Amiodarone was held Had noted left great toenail discoloration with PORSHA without concerns for PAD CT abdomen pelvis showed multiple small bilateral renal cysts and was recommended to have further outpatient follow-up Olanzapine at bedtime per palliative Vitamin D suggested Losartan Dcd Reported during hospital course patient became more awake and alert and had started to interact with family. It was suggested to continue on pyridostigmine 30mg TID per neurology with plan to hold his prior to arrival dose of 180mg daily until further PCP follow up Patient diet was pureed and mildly thick liquids Patient transferred from [facility] back to [facility] on 12/29/23 per patient and family request as closer to patient's home and family Patient seen and examined in room 321. Currently awake is oriented to person only. Does have mumbled speech. Is able to follow basic commands. Further history and ROS is not able to be obtained from patient at this time. Admission Exam Per Admitting Provider General: no acute distress, WDWN Head: normocephalic, atraumatic Eyes: conjunctiva non-injected, anicteric ENT: normal inspection external ears, nose, mucous membranes moist Neck: supple, trachea midline Lungs: clear, no respiratory distress, no wheezing/rhonchi/rales CV: irregularly irregular, rate 58, no pretibial edema Abd: normal BS, soft, non-tender to palpation Ext: no cyanosis, no calf tenderness Neuro: Awake and alert to person only. Currently calm lying in bed. +mumbled speech. Able to follow simple commands and can move bilateral upper and lower extremities Skin: warm, dry, left great toe with black discoloration without surrounding erythema Principal Dx & Hospital Course #1 = Principal Diagnosis (1) Encephalopathy: (2) Dysphagia: (3) C. difficile diarrhea: (4) Ambulatory dysfunction: (5) History of myasthenia gravis: (6) Sinus bradycardia: (7) Myasthenia gravis: (8) Atrial fibrillation: (9) DM II (diabetes mellitus, type II), controlled: (10) MDD (major depressive disorder): (11) HTN (hypertension): (12) HLD (hyperlipidemia): Plan Mr. Huizar is an 83 year old gentleman with history of paroxysmal atrial fibri llation now s/p Watchman 09/28, myasthenia gravis, hypertension, HLD, DMTII, progressive dysphagia who is presented to [facility] ED initially on 11/26/2022 due to worsening headaches, dysphagia, and episode of confusion. He experienced a progressive neurologic decline and transferred to [facility] on 11/29 for neurologic eval and LP. No clear etiology of patient's decline was revealed. Patient was evaluated by general anthony and not a candidate for PEG placement. Patient's course complicated by C diff and completed oral vanc for 14 days on 12/28. Patient then transferred to [facility] on 12/29 while placement is pending for public services assistant care. Patient's course since return was notable for SHWETA, which resolved with fluids. Patient stable at this time. No acute events. Patient is confused when awakened and takes time to orient, but will ask for medications and do better with commands later in the mornings. Patient still awaiting hopeful placement for the beginning of the week. Patient conversational and pleasant when allowed to awaken by own volition. Patient startles very easily and is not cooperative when being awakened. Patient to be transferred to [facility] today. Discharge was expected 01/07 but delay was due to logistical issues. #SHWETA *resolved Up to 1.6, resolved and IVF fluids discontinued on 01/02 Resolved, remains stable #Acute Encephalopathy, unclear etiology, stable #Progressive Delirium #Myasthenia Gravis -delirium precautions as able -continue melatonin HS prn -psychiatry evaluated at [place]: started on Abilify as per their recommendations, but later discontinued per palliative medicine recs in favor of olanxipine 5mg qhs -palliative medicine consulted at OSH , recommending olanzapine for appetite stimulation and to discontinue Abilify. -surgery consulted and recommended against PEG tube placement due to mentation and high risk of dislodgement -PT/OT consult is following along -Neurology at [place]: recommending to continue SEWER pyridostigmine 30 mg three times daily on discharge, and hold SEWER pyridostigmine ER 180 mg until neuro follow-up as an outpatient #Abnormal UA UA did not reflex -Repeat infectious workup given profound delirium -UA negative 11/29 #Mild/moderate oropharyngeal dysphagia #Esophageal dysfunction #Progressive dysphagia, +silent aspiration #Increased secretions -NGT placed in [place] and NG tube was also removed on 12/18, per request of family -calorie counting was performed, dietitian following. Oral intake improving with assistance Family meeting held with palliative medicine on 12/25/2023 with plan to continue to monitor mentation and p.o. intake; continue olanzapine -Continue on pureed food, with thin liquid -Not a candidate for PEG #Recurrent mechanical falls #Ambulatory dysfunction #Prior subdural hematoma -traumatic fall 12/2021 with hematoma noted -PT/OT -Fall precautions, plan for public services assistant placement #Hypothyroidism -TSH 12.54, free T4 0.85, on amiodarone CTM, historically untreated 2/2 ongoing MG Continue levothyroxine 50mg #Paroxysmal Atrial Fibrillation s/p watchman #Chronic RBBB #Symptomatic bradycardia [id number] 3, HASBLED 2 01/2022, newly diagnosed A Fib RVR, discharged with amiodarone; discontinued 11/2022, however reverted back to a fib and placed on amio/metoprolol/dilt s/p cardioversion Followed with Dr Mcneil 05/2023 during admission, during that time amiodarone continued, metoprolol Watchman placed 09/2023 -SEWER amiodarone 200mg daily -Placed on DAPT post watchman to continue for reportedly 6 months, then asa 81 indefinitely -Continue ASA and plavix -Discontinued amiodarone -No device at this time #Intermittent Hypoglycemia #DMTII Hypogylcemia protocol A1C 6.0 Encourage PO intake #HTN Takes amlodipine and losartan -Discontinue SEWER antihypertensives #Carotid stenosis s/p CEA #HLD Continue pravastatin #C Diff colitis S/p oral vanc times 14 days EOT 12/28 Removed precautions #Urinary urgency #Recurrent nephrolithiasis #Renal Cysts -Failed Gemtesa, trospium, myrbetriq, follows Dr. Broussard; OP recommendation include limit salt, prioritize hydration Discharge Exam Constitutional alert to self, location "hospital" Respiratory normal respiratory effort, lungs clear to auscultation Cardiovascular bradycardic Gastrointestinal (Abdomen) normal bowel sounds, soft, nontender, no hepatosplenomegaly Updated Medication List Medication Instructions Recorded Confirmed Type pravastatin 40 mg tablet 40 mg PO QPM 12/23/21 12/29/23 History pyridostigmine bromide 60 mg 30 mg PO TID 12/23/21 12/29/23 History tablet (Mestinon) acetaminophen 325 mg capsule 650 mg PO QID PRN Fever Or Pain 01/21/22 12/29/23 History (Tylenol) clopidogrel 75 mg tablet 75 mg PO QAM 11/26/23 12/29/23 History pyridostigmine bromide 180 mg 180 mg PO QAM 11/26/23 12/29/23 History tablet,extended release Vitamin D3 1,000 units PO DAILY 12/29/23 12/29/23 History aspirin 81 mg chewable tablet 81 mg PO QAM 12/29/23 12/29/23 History cyanocobalamin (vitamin B-12) 1,000 mcg PO QAM 12/29/23 12/29/23 History 1,000 mcg tablet (Vitamin B-12) levothyroxine 50 mcg tablet 50 mcg PO DAILYBB #30 tabs 01/08/24 Rx (Synthroid) melatonin 3 mg tablet 3 mg PO HS PRN sleep #30 tabs 01/08/24 Rx olanzapine 5 mg disintegrating 5 mg PO HS #30 tabs 01/08/24 Rx tablet Hospital Stay Data Pending Results Patient Have Any Pending Studies at Discharge: No Discharge Instructions Given to Patient (Per Discharging Provider) Mr. Huizar is an 83 year old gentleman with history of paroxysmal atrial fibrillation now s/p Watchman 09/28, myasthenia gravis, hypertension, HLD, DMTII, progressive dysphagia who is presented to [facility] ED initially on 11/26/2022 due to worsening headaches, dysphagia, and episode of confusion. He experienced a progressive neurologic decline and transferred to [facility] on 11/29 for neurologic evaluation and LP. No clear etiology of patient's decline was revealed. Patient was evaluated by general surgery given dysphagia and not a candidate for PEG placement. Patient's course complicated by C diff and completed oral vanc for 14 days on 12/28. Patient then transferred to [facility] on 12/29 while placement is pending for public services assistant care. Patient's course since return was notable for SHWETA, which resolved with fluids. Patient stable at this time. No acute events. Patient is confused when awakened and takes time to orient, but will ask for medications and do better with commands later in the mornings. Patient still awaiting hopeful placement for the beginning of the week. Patient conversational and pleasant when allowed to awaken by own volition. Patient startles very easily and is not cooperative when being awakened. #SHWETA *resolved Up to 1.6, resolved and IVF fluids discontinued on 01/02 Resolved, remains stable #Acute Encephalopathy, unclear etiology, stable #Progressive Delirium #Myasthenia Gravis -delirium precautions as able -continue melatonin HS prn -psychiatry evaluated at [place]: started on Abilify as per their recommendations, but later discontinued per palliative medicine recs in favor of olanxipine 5mg qhs -palliative medicine consulted at OSH , recommending olanzapine for appetite stimulation and to discontinue Abilify. -surgery consulted and recommended against PEG tube placement due to mentation and high risk of dislodgement -PT/OT consult is following along -Neurology at [place]: recommending to continue SEWER pyridostigmine 30 mg three times daily on discharge, and hold SEWER pyridostigmine ER 180 mg until neuro follow-up as an outpatient #Mild/moderate oropharyngeal dysphagia #Esophageal dysfunction #Progressive dysphagia, +silent aspiration #Increased secretions -NGT placed in [place] and NG tube was also removed on 12/18, per request of family -calorie counting was performed, dietitian following. Oral intake improving with assistance Family meeting held with palliative medicine on 12/25/2023 with plan to continue to monitor mentation and p.o. intake; continue olanzapine qhs -Continue on pureed food, with thin liquid -Not a candidate for PEG #Hypothyroidism -TSH 12.54, free T4 0.85, on amiodarone CTM, historically untreated 2/2 ongoing MG Continue levothyroxine 50mg #Paroxysmal Atrial Fibrillation s/p watchman #Chronic RBBB #Symptomatic bradycardia [id number] 3, HASBLED 2 01/2022, newly diagnosed A Fib RVR, discharged with amiodarone; discontinued 11/2022, however reverted back to a fib and placed on amio/metoprolol/dilt s/p cardioversion Followed with Dr Mcneil 05/2023 during admission, during that time amiodarone continued, metoprolol Watchman placed 09/2023 -Placed on DAPT post watchman to continue for reportedly 6 months, then asa 81 indefinitely -Continue ASA and plavix -Discontinued amiodarone -No device at this time #Intermittent Hypoglycemia #DMTII Hypogylcemia protocol A1C 6.0 Encourage PO intake #HTN -Discontinue antihypertensives #Carotid stenosis s/p CEA #HLD Continue pravastatin #Urinary urgency #Recurrent nephrolithiasis #Renal Cysts Urology recommendation include limit salt, prioritize hydration Total Time Total Time Spent Total Time Spent (In Minutes): 45
== END 2024-01-09 15:28 | DRG 71 ==
LOC: 3E 19:45 → SUATTDRO 19:45

== ENCOUNTER 2024-02-10 09:58 | Inpatient (IN) ==
--- OUTSIDE RECORDS SUMMARY | 2024-02-10 10:08 | External Medical Summary | Summary of Care ---
Author Name Unknown Organization [facility] [address] [facility] [facility] [address] Phone [phone] Care Team Providers Care Credit Assistant Name Role Phone Juan Dominique MD Primary Care Pr ovider Reason for Visit * Reason Onset Date Comments Pre Op Discussion 10/19/2023 Encounter Details Date Type Department Care Team (Late st Contact Info) Description 10/19/2023 Telephone OR [facility], Operating Room [facility] [address] [facility] [place] [id number] Ameena Pascual MD [address] [place] [address] [place] [id number] Pre Op Discussion Allergies Active Allergy Reactions Criticality Noted Date Comments Felodipine High 11/15/2012 Other Reaction(s): hives Flunisolide 11/15/2012 Other Reaction(s): other Gabapentin High 07/16/2013 Other Reaction(s): Drowsy, GI SYMPTOMS Hydrochlorothiazide W-Triamterene 11/15/2012 Thiazide-Type Diuretics 07/21/2004 gout documented as of this encounter (statuses as of 01/18/2024) Medications Medication Sig Dispensed Refills Start Date End Date Status Pyridostigmine [place] 60 MG Oral Tablet (Mestinon) Take 0.5 [...] Tablet by mouth every evening. 0 Active Aspirin 81 MG Oral Tablet Chewable 1 Tablet. 0 09/15/2023 Active Clopidogrel Bisulfate 75 MG Oral Tablet (pLAVix) Take 1 Tablet by mouth in the morning. 0 09/18/2023 Active Diclofenac Sodium 1 % External Cream Apply topically as needed to elbow for pain. 0 12/25/2023 Discontinued Losartan Potassium 50 MG Oral Tablet (Cozaar) Take 1 Tablet by mouth in the morning. 0 12/25/2023 Discontinued Amiodarone HCl 200 MG Oral Tablet (Cordarone) Take 1 Tablet by mouth in the morning. 0 04/12/2023 12/25/2023 Discontinued Benzonatate 100 MG Oral Capsule (Tessalon Perles) 1 Capsule. 0 09/20/2023 12/25/2023 Discont inued Potassium Citrate ER 10 MEQ (1080 MG) Oral Tablet Extended Release (Urocit-K) 1 Tablet. 0 07/26/2023 12/25/2023 Discontinued pyRIDostigmine [place] ER 180 MG Oral Tablet Extended Release (Mestinon Timespan) Take 1 Tablet by mouth in the morning. 0 12/25/2023 Discontinued Vitamin D (Ergocalciferol) 1.25 MG (38984 UT) Oral Capsule (Drisdol) Take 1 Capsule by mouth once a week. 0 12/25/2023 Discontinued documented as of this encounter (statuses as of 01/18/2024) Active Problems Problem Noted Date Diagnosed Date Delirium 12/20/2023 Palliative care encounter 12/20/2023 Agitation 12/12/2023 Fever, unknown origin 12/11/2023 Myasthenia 11/30/2023 Encephalopathy acute 11/30/2023 Dysphagia 11/30/2023 Traumatic subarachnoid hemorrhage 12/23/2021 Fall from standing 12/23/2021 Subarachnoid hemorrhage foll owing injury, no loss of consciousness 12/23/2021 Neck pain 12/23/2021 Irritable bowel syndrome 03/04/2005 BENIGN NEOPLASM LG BOWEL 12/13/2004 Other allergic rhinitis 08/28/2004 Overview: ICD-10 update of inactive term LOC PRIM [id number] 07/23/2003 DIVERTICULOSIS OF COLON 01/22/2003 Gouty arthropathy 05/11/2002 Overview: ICD-10 update of inactive term History of peptic ulcer disease Overview: ICD-10 update of inactive term GENERAL OSTEOARTHROSIS Major depressive disorder Overview: ICD-10 update of inactive term BENIGN HYPERTENSION PURE HYPERCHOLESTEROLEM documented as of this encounter (statuses as of 01/18/2024) Immunizations Name Administration Dates Next Due Seasonal [...] as of this encounter Plan of Treatment Upcoming Encounters Date Type Department Care Team (Late st Contact Info) Description 08/07/2024 10:00 AM EDT Office Visit Neurology, [place] [address] [place] [facility] [place] [id number] Dakota Franklin MD [address] [facility] [place] [id number] Health Maintenance Due Date Last Done Comments Depression Screening 1952 Zoster Vaccines (1 of 2) 1992 COVID-19 Vaccine (2 - season) 2023 05/14/2021 TSH 12/22/2024 12/22/2023, 03/2024, 11/29/2023, Additional history exists DTaP,Tdap,and Td Vaccines (2 - Td or Tdap) 02/21/2026 02/22/2016 Pneumococcal Vaccine: 65+ Years Completed 11/06/2017, 11/25/2016, 01/07/2008 Influenza Vaccine (FLU shot) Completed 11/2022, 08/13/2019, 10/09/2018, Additional history exists GARDASIL-HPV IMMUNIZATION SERIES Aged Out No longer eligible based on patient's age to complete this topic Hepatitis B Aged Out No longer eligi ble based on patient's age to complete this topic MENINGOCOCCAL (MENACTRA/MENVEO) Aged Out No longer eligible based on patient's age to complete this topic documented as of this encounter Medical Devices Not on filedocumented as of this encounter Additional Health Concerns Infection Onset Date Last Indicated Resolved Time Respiratory Rule-Out 11/29/2023 11/30/2023 024 12:05 PM EST COVID-19 Rule-Out 11/29/2023 11/30/2023 11/29/2023 11:14 PM EST Respiratory Rule-Out 12/02/2023 12/02/2023 024 12:12 PM EST COVID-19 Rule-Out 12/02/2023 12/02/202312/0212/02/2023 12:12 PM EST Bacterial Meningitis Rule-Out 12/05/2023 11/30/2023 12/05/2023 12:25 PM EST C. difficile Rule-Out 12/13/2023 12/13/20232023 1:10 AM EST Gastrointestinal Rule-Out 12/13/2023 12/13/2023 11:19 PM EST C. difficile 12/13/2023 12/13/2023 01/12/2024 12:1 9 AM EST documented as of this encounter Advance Directives Latest Code Status on File Code Status Date Activated Date Inactivated Comments Full Code 11/29/2023 9:31 PM 12/29/2023 10:16 PM This order reflects the patients wishes and were consensually agreed upon. Question Answer Comments Discussion of Advance Directives occurred with: Patient Code Status History Code Status Date Activated Date Inactivated Comments Full Code 12/23/2021 10:34 AM 12/25/2021 6:35 PM This order reflects the patients wishes and were consensually agreed upon. Question Answer Comments Discussion of Advance Directives occurred with: Patient Care Teams Credit Assistant Relationship Specialty Start Date End Date Juan Dominique MD [address] [place] [address] PCP - General Family Medicine 09/26/23 documented as of this encounter
[2024-02-10] MEDS: SODIUM CHLORIDE 0.9% 500 ML IV SCH (10:24)
[2024-02-10 10:32] LABS: iSTAT Arterial Blood Gas HCO3 30 meg/L (19-24); iSTAT Arterial Blood Gas pCO2 54 mmHg (35-46); iSTAT Arterial Blood Gas pH 7.35 (7.35-7.45); iSTAT Arterial Blood Gas pO2 88 mmHg (80-95); iSTAT Carbon Dioxide 32 mmol/L (24-31); iSTAT Hematocrit 44 % (42-52); iSTAT Sodium 154 mmol/L (135-144)
[2024-02-10 10:41] LABS: Basophils # (auto) 0.02 K/uL (0.00-0.20); Basophils % (auto) 0.4 %; Eosinophils # (auto) 0.05 K/uL (0.00-0.50); Eosinophils % (auto) 1.1 %; Hematocrit (blood only) 46.5 % (42.0-52.0); Hemoglobin 14.8 g/dl (14.0-18.0); Lymphocytes % (auto) 14.9 %; Mean Corpuscular Hemoglobin 29.1 pg (25.0-34.0); Mean Corpuscular Hgb Conc 31.8 g/dL (32.0-36.0); Mean Corpuscular Volume 91.4 fL (80.0-100.0); Mean Platelet Volume 11.6 fL (9.4-12.4); Monocytes # (auto) 0.61 K/uL (0.11-0.59); Neutrophils # (auto) 3.32 K/uL (1.40-6.50); Neutrophils % (auto) 70.6 %; Platelet Count 145 K/uL (130-400); RDW Coefficient of Variation 16.8 % (11.5-14.5); RDW Standard Deviation 56.5 fL (36.4-46.3); Red Blood Count 5.09 M/uL (4.70-6.10)
--- NOTE | 2024-02-10 10:43 | Emergency Department Note ---
Impression & Plan AMS (altered mental status), SHWETA (acute kidney injury), Acute hypernatremia, Acute UTI, Hypothermia, Dehydration ED Provider Note Provider: Vasyl Nguyen MD DATE OF SERVICE: 02/10/2024 CHIEF COMPLAINT: Decreased mental status HISTORY OF PRESENT ILLNESS: Patient is a 83-year-old gentleman with complex past medical history including myasthenia gravis, UTI, kidney stone, diabetes, atrial fibrillation status post watchman, history of SAH, and hypertension among others presenting here via ambulance from [facility] where he has been residing. Was hospitalized here in November with a complex history. Patient himself unable to give me much of the history. Was able to contact patient's daughter via phone for additional history beyond what EMS told me. Patient evidently less responsive today and the facility questioned if his oxygen level was low. EMS states the ox levels been okay with them and that his blood sugar was in the 60s. They have been unable to obtain an IV. Patient again mainly responsive to pain unable to contribute to history. Daughter states since November he has not been himself and only occasionally groans and talks but since he was concerned earlier this week that he might be dehydrating. Patient did have some pain from a bedsore and to get some morphine the last several days. History of C. difficile recently. PAST MEDICAL HISTORY: As noted above MEDICATIONS: Reviewed list from facility SOCIAL HISTORY: Recently , residing at [facility] PHYSICAL EXAM: GENERAL: alert to painful stimuli but not interactive or talking Head: normocephalic and atraumatic EYES: No injection, discharge or icterus. PERRL NECK: Trachea midline. Supple. ENT: Mucous membranes dry and cracked in nature including the soft palate and oropharynx. LUNGS: Airway patent. No retractions with diminished effort and faint breath sounds bilaterally. HEART: Bradycardic rate and rhythm. No chest wall tenderness ABDOMEN: Soft and non-tender, without guarding or rebound. SKIN: Acyanotic, warm, dry, with a small less than 2 to 3 cm area of grade 1-2 sacral decubitus ulceration noted without significant crepitus or discharge EXTREMITIES: Without swelling, tenderness or deformity NEUROLOGICAL: Withdraws to some pain. Occasionally will groan some. Nonverbal. Seems to withdraw in all 4 extremities. EK bpm sinus bradycardia. No ST segment elevation. QTc 375. Left axis noted. Bit of baseline artifact. CONTINUOUS CARDIAC MONITORING: was ordered and showed a heart rate of 40s-50s bpm in bradycardia occasional PVCs Patient's laboratory studies and imaging reviewed. Differential includes Infection, dehydration, metabolic abnormality, hypo/hyperglycemia, electrolyte disturbance, anemia, hypoxia, cardiac sources, intracerebral event, toxicologic, neurologic, as well as other pathologies. IMPRESSION/MEDICAL DECISION MAKING: Patient assessed in room 81. Some difficulty with IV access which I eventually placed an 18-gauge with the ultrasound. Patient blood class not severely abnormal. Does appear quite dry on exam and given some IV fluid. Blood sugar rechecked and dropping some given some dextrose. Cold and warming blanket initiated. Culture sent. Did contact daughter via phone when able and discuss with her the patient's findings. Reports the patient would be full code. Will be coming in an hour or so to the hospital. Advised that he is quite ill and borderline needing to be intubated. Discussed with her my significant concern significant debate and he may not ever get off the ventilator given his chronically depressed mental status over the past month or 2. As he is oxygenating okay we will continue to monitor closely. Blood work returns without significant acidosis and minimal hypercarbia 54. Sodium severely elevated 153 likely consistent with dehydration and creatinine elevated as well. Will complete a CT of the head given history of head bleed as well as altered mental status today. Will complete a CT of the chest as well as abdomen pelvis given the SHWETA as well as concern that he may have possibly aspirated earlier. No significant findings concerning for rhabdomyolysis. TSH normal. Did trial 1 dose of Narcan to see if there is any remaining morphine circulating causing some of his depressed mental status. No change. Lactate not elevated. Urinalysis questionable for infection and and given history will cover with antibiotics. CT reports without evidence of hydronephrosis. No clear evidence of significant pneumonia. No evidence significant intracranial bleed or other traumatic injury or bleeding per radiology reports. Patient's blood pressures somewhat borderline but receiving IV fluids. Patient's family later arrives. Updated with plan of care. They agree with plan right now to try to hold off on intubation given their fathers poor baseline. Will bring into the hospital. Respiratory viral panel negative. 2.5L of IV fluid have been ordered. Family at bedside hospitalist team updated with plan of care. They are evaluating. DIAGNOSIS: AMS, hypernatremia, acute kidney injury, acute UTI, hypothermia DISPOSITION: Hospitalist will evaluate Critical Care I have personally spent 75 minutes of critical care time in the direct management of this patient. This includes bedside care, interpretation of diagnostic studies, and testing, discussion with consultants, patient, and family members, and other required patient management activities. These 75 minutes is in excess of all separately billable procedures. Past Med/Surg History Medical History Carotid stenosis s/p carotid endarterectomy, side unknown Left ureteral stone Kidney lesion Atrial fibrillation [facility] [place] [facility]ISIT 07/2022 MDD (major depressive disorder) DM II (diabetes mellitus, type II), controlled diet controlled, no longer on meds HLD (hyperlipidemia) HTN (hypertension) History of subarachnoid hemorrhage 12/2021 Myasthenia gravis IBS (irritable bowel syndrome) Surgical History History of carotid endarterectomy done about 5 yrs ago, [facility] [place] Hx of cystoscopy w/ stent 10/20/22 MAC. Post-op anesthesia progress note: "slightly hypotensive but is close to his preoperative baseline and has been receiving Vancomycin through his IV. His other vital signs are stable." History of vasectomy S/P cholecystectomy Family History Father Stroke Social History Smoking Status: Unknown if ever smoked Tobacco Type: Cigarettes Second Hand Exposure: No; Do You Dip or Chew Tobacco: No; Hx Alcohol Use: No Hx Substance Use: No Preferred Language: Romanian Communication Ability: Impaired Visual Impairment: No Limitations Social Media Specialist Required: No Beliefs That Will Affect Care: None marital status: Current Living Situation: Spouse current occupational status: retired Feels Safe at Home: Yes caffeine: Yes Assistive Devices: Cane Allergies Allergies Allergy/AdvReac Type Severity Reaction Status Date / Time felodipine Allergy Intermediate hives Verified 02/10/24 12:18 flunisolide Allergy Unknown other Verified 02/10/24 12:18 gabapentin AdvReac Intermediate GI SYMPTOMS Verified 02/10/24 12:18 Thiazides AdvReac Intermediate CAUSED GOUT Verified 02/10/24 12:18 Home Meds Home Medications Medication Instructions Recorded Confirmed pravastatin 40 mg tablet 40 mg PO QPM 12/23/21 02/10/24 pyridostigmine bromide 60 mg 60 mg PO TID 12/23/21 02/10/24 tablet (Mestinon) acetaminophen 325 mg capsule 975 mg PO TID PRN Fever Or Pain 01/21/22 02/10/24 (Tylenol) clopidogrel 75 mg tablet 75 mg PO QAM 11/26/23 02/10/24 pyridostigmine bromide 180 mg 180 mg PO HS 11/26/23 02/10/24 tablet,extended release aspirin 81 mg chewable tablet 81 mg PO QAM 12/29/23 02/10/24 cyanocobalamin (vitamin B-12) 500 mcg PO QAM 12/29/23 02/10/24 1,000 mcg tablet (Vitamin B-12) amiodarone 200 mg tablet 200 mg PO BID 02/10/24 02/10/24 clotrimazole 1 % topical cream 1 applic topical BID PRN Unknown 02/10/24 02/10/24 ergocalciferol (vitamin D2) 1,250 1,250 mcg PO WK 02/10/24 02/10/24 mcg (50,000 unit) capsule (Vitamin D2) losartan 50 mg tablet 50 mg PO QAM 02/10/24 02/10/24 Previous Rx's Medication Instructions Recorded levothyroxine 50 mcg tablet 50 mcg PO DAILYBB #30 tabs 01/08/24 (Synthroid) olanzapine 5 mg disintegrating 5 mg PO HS #30 tabs 01/08/24 tablet Results & Data (ED) Vital Signs Vital Signs - 24 hr 02/10/24 10:11 02/10/24 10:16 02/10/24 10:18 Temperature Temperature Source Pulse Rate 66 58 L Pulse Rate from SpO2 Sensor Respiratory Rate 6 L Respiratory Depth Shallow Blood Pressure 103/60 Blood Pressure Mean 74 Blood Pressure Position Sitting Pulse Oximetry 96 96 Oxygen Delivery Method Room Air Room Air Room Air Sepsis Recent Fever Within 48 Hours No Sepsis New/Unexplained Change in Mental Status No Sepsis Action Taken by Nursing No Action Required 02/10/24 10:23 02/10/24 10:36 02/10/24 10:38 Temperature 34.8 C L Temperature Source Rectal Pulse Rate 52 L 52 L Pulse Rate from SpO2 Sensor 53 L Respiratory Rate 8 L Respiratory Depth Blood Pressure 111/60 Blood Pressure Mean 77 Blood Pressure Position Pulse Oximetry 98 Oxygen Delivery Method Room Air Sepsis Recent Fever Within 48 Hours Sepsis New/Unexplained Change in Mental Status Sepsis Action Taken by Nursing 02/10/24 10:40 02/10/24 10:45 02/10/24 11:00 Temperature 34.8 C L Temperature Source Rectal Pulse Rate 47 L 40 L Pulse Rate from SpO2 Sensor 47 L 42 L Respiratory Rate 8 L 21 Respiratory Depth Blood Pressure 98/56 L 100/46 L Blood Pressure Mean 70 64 Blood Pressure Position Pulse Oximetry 100 98 Oxygen Delivery Method Room Air Sepsis Recent Fever Within 48 Hours Sepsis New/Unexplained Change in Mental Status Sepsis Action Taken by Nursing 02/10/24 11:20 02/10/24 11:30 02/10/24 11:34 Temperature Temperature Source Pulse Rate 42 L 45 L 45 L Pulse Rate from SpO2 Sensor 43 L 46 L 46 L Respiratory Rate 16 10 L 17 Respiratory Depth Blood Pressure 99/50 L 79/45 L 112/66 Blood Pressure Mean 66 56 81 Blood Pressure Position Pulse Oximetry 98 98 99 Oxygen Delivery Method Room Air Sepsis Recent Fever Within 48 Hours Sepsis New/Unexplained Change in Mental Status Sepsis Action Taken by Nursing 02/10/24 11:35 02/10/24 11:40 02/10/24 11:45 Temperature Temperature Source Pulse Rate 57 L 51 L 45 L Pulse Rate from SpO2 Sensor 46 L 49 L 50 L Respiratory Rate 13 14 11 L Respiratory Depth Blood Pressure 71/38 L Blood Pressure Mean 49 Blood Pressure Position Pulse Oximetry 98 98 90 Oxygen Delivery Method Sepsis Recent Fever Within 48 Hours Sepsis New/Unexplained Change in Mental Status Sepsis Action Taken by Nursing 02/10/24 11:46 02/10/24 11:50 02/10/24 11:53 Temperature Temperature Source Pulse Rate 46 L 46 L 48 L Pulse Rate from SpO2 Sensor 45 L 47 L 47 L Respiratory Rate 12 14 12 Respiratory Depth Blood Pressure 86/50 L 82/44 L Blood Pressure Mean 62 56 Blood Pressure Position Pulse Oximetry 97 98 98 Oxygen Delivery Method Sepsis Recent Fever Within 48 Hours Sepsis New/Unexplained Change in Mental Status Sepsis Action Taken by Nursing 02/10/24 11:55 02/10/24 12:00 02/10/24 12:05 Temperature Temperature Source Pulse Rate 48 L 48 L 48 L Pulse Rate from SpO2 Sensor 47 L 50 L 48 L Respiratory Rate 12 11 L 16 Respiratory Depth Blood Pressure 81/45 L 73/44 L Blood Pressure Mean 57 53 Blood Pressure Position Pulse Oximetry 97 96 96 Oxygen Delivery Method Sepsis Recent Fever Within 48 Hours Sepsis New/Unexplained Change in Mental Status Sepsis Action Taken by Nursing 02/10/24 12:10 02/10/24 12:15 02/10/24 12:20 Temperature Temperature Source Pulse Rate 47 L 48 L 48 L Pulse Rate from SpO2 Sensor 47 L 48 L 48 L Respiratory Rate 12 16 16 Respiratory Depth Blood Pressure 88/52 L 92/49 L 92/48 L Blood Pressure Mean 64 63 62 Blood Pressure Position Pulse Oximetry 98 97 96 Oxygen Delivery Method Sepsis Recent Fever Within 48 Hours Sepsis New/Unexplained Change in Mental Status Sepsis Action Taken by Nursing 02/10/24 12:25 02/10/24 12:30 02/10/24 12:35 Temperature Temperature Source Pulse Rate 49 L 49 L 56 L Pulse Rate from SpO2 Sensor 49 L 49 L 51 L Respiratory Rate 18 14 27 H Respiratory Depth Blood Pressure 93/48 L 84/48 L 90/46 L Blood Pressure Mean 63 60 60 Blood Pressure Position Pulse Oximetry 96 97 97 Oxygen Delivery Method Sepsis Recent Fever Within 48 Hours Sepsis New/Unexplained Change in Mental Status Sepsis Action Taken by Nursing 02/10/24 12:40 02/10/24 12:45 02/10/24 12:50 Temperature Temperature Source Pulse Rate 52 L 61 53 L Pulse Rate from SpO2 Sensor 52 L 52 L 53 L Respiratory Rate 18 19 25 H Respiratory Depth Blood Pressure 92/46 L 85/46 L 87/46 L Blood Pressure Mean 61 59 59 Blood Pressure Position Pulse Oximetry 96 97 97 Oxygen Delivery Method Sepsis Recent Fever Within 48 Hours Sepsis New/Unexplained Change in Mental Status Sepsis Action Taken by Nursing 02/10/24 12:55 02/10/24 13:00 02/10/24 13:05 Temperature Temperature Source Pulse Rate 54 L 53 L Pulse Rate from SpO2 Sensor 54 L 54 L Respiratory Rate 18 16 Respiratory Depth Blood Pressure 88/47 L 96/50 L 91/48 L Blood Pressure Mean 60 65 55 Blood Pressure Position Pulse Oximetry 96 97 Oxygen Delivery Method Sepsis Recent Fever Within 48 Hours Sepsis New/Unexplained Change in Mental Status Sepsis Action Taken by Nursing 02/10/24 13:05 02/10/24 13:10 02/10/24 13:10 Temperature Temperature Source Pulse Rate 53 L 54 L Pulse Rate from SpO2 Sensor 53 L 54 L Respiratory Rate 22 18 Respiratory Depth Blood Pressure 89/48 L Blood Pressure Mean 64 Blood Pressure Position Pulse Oximetry 96 96 Oxygen Delivery Method Sepsis Recent Fever Within 48 Hours Sepsis New/Unexplained Change in Mental Status Sepsis Action Taken by Nursing 02/10/24 13:15 02/10/24 13:15 Temperature Temperature Source Pulse Rate 55 L Pulse Rate from SpO2 Sensor 55 L Respiratory Rate 17 Respiratory Depth Blood Pressure 81/50 L Blood Pressure Mean 63 Blood Pressure Position Pulse Oximetry 97 Oxygen Delivery Method Sepsis Recent Fever Within 48 Hours Sepsis New/Unexplained Change in Mental Status Sepsis Action Taken by Nursing Laboratory Data 02/10/24 10:15 02/10/24 10:15 Lab Results 02/10/24 02/10/24 02/10/24 Range/Units 10:15 10:18 10:20 WBC 4.70 L (4.8-10.8) K/ul RBC 5.09 (4.70-6.10) M/uL Hgb 14.8 (14.0-18.0) g/dl POC Hgb 15.0 (14.0-18.0) g/dl Hct 46.5 (42.0-52.0) % POC Hct 44 (42-52) % MCV 91.4 (80.0-100.0) fL MCH 29.1 (25.0-34.0) pg MCHC 31.8 L (32.0-36.0) g/dL RDW Std Deviation 56.5 H (36.4-46.3) fL RDW Coeff of [place] 16.8 H (11.5-14.5) % Plt Count 145 (130-400) K/uL MPV 11.6 (9.4-12.4) fL Immature Gran % (Auto) 0.0 % Neut % (Auto) 70.6 % Lymph % (Auto) 14.9 % [place] % (Auto) 13.0 % Eos % (Auto) 1.1 % Baso % (Auto) 0.4 % Neut # (Auto) 3.32 (1.40-6.50) K/uL Lymph # (Auto) 0.70 L (1.20-3.40) K/uL [place] # (Auto) 0.61 H (0.11-0.59) K/uL Eos # (Auto) 0.05 (0.00-0.50) K/uL Baso # (Auto) 0.02 (0.00-0.20) K/uL Immature Gran # (Auto) 0.00 L (0.01-0.20) K/uL PT 11.8 (9.0-12.0) Seconds INR 1.1 (0.9-1.1) POC pH 7.35 (7.35-7.45) POC pCO2 54 H (35-46) mmHg POC pO2 88 (80-95) mmHg POC HCO3 30 H (19-24) lalo/L POC Total CO2 32 H (24-31) mmol/L POC Base Excess 4.0 H (-9-1.8) lalo/L POC ABG O2 Sat 96.0 H (90-95) % POC Sodium 154 H (135-144) mmol/L Sodium 153 H (136-145) mmol/L POC Potassium 4.0 (3.3-5.0) mmol/L Potassium 4.1 (3.5-5.1) mmol/L POC Chloride (101-112) mmol/L Chloride 114 H (98-107) mmol/L Carbon Dioxide 29 (21-32) mmol/L Anion Gap 10 (3-11) POC Anion Gap (16-25) mmol/L POC BUN (7-18) mg/dl BUN 39 H (6-23) mg/dl Creatinine 1.86 H (0.6-1.4) mg/dl POC Creatinine (0.6-1.3) mg/dl Est Cr Clr Drug Dosing Not Reportable Est GFR ( Amer) 38.5 ml/min Est GFR (Non-Af Amer) 33.2 ml/min BUN/Creatinine Ratio 21.0 H (10-20) Glucose 62 L (70-99(Fasting)) mg/dl POC Glucose (70-99) mg/dl POC Glucose (other) (70-99) mg/dl Lactate 1.0 (0.4-2.0) mmol/L Calcium 9.9 (8.6-10.3) mg/dl POC Ioniz Calcium Shirlene (1.12-1.32) mmol/l Magnesium 2.4 (1.7-2.4) mg/dl Total Bilirubin 0.8 (0.2-1.0) mg/dl AST 114 H (13-39) U/L ALT 48 (7-52) U/L Alkaline Phosphatase 191 H (34-104) U/L Total Creatine Kinase 84 (30-223) U/L Troponin I High Sens 8.1 (0-20) pg/ml Total Protein 7.6 (6.0-8.3) gm/dl Albumin 3.6 (3.4-5.0) gm/dl Globulin 4.0 (2.5-4.0) gm/dl Albumin/Globulin Ratio 0.9 (0.9-2) TSH 3.591 (0.300-4.500) uIu/ml Urine Color Urine Appearance (Clear) Urine pH (4.5-7.5) Ur Specific [place] (1.000-1.030) Urine Protein (Negative) Urine Glucose (UA) (Negative) Urine Ketones (Negative) Urine Blood (Negative) Urine Nitrite (Negative) Urine Bilirubin (Negative) Urine Urobilinogen (Negative) Ur Leukocyte Esterase (Negative) Urine WBC (Auto) (0-5) /hpf Urine RBC (Auto) (0-4) /hpf U Hyaline Cast (Auto) (0-5) /lpf U Epithel Cells (Auto) (0-5) /lpf Urine Bacteria (Auto) (Negative) Adenovirus (PCR) Not Detected (NotDetected) B. pertussis DNA (PCR) Not Detected (NotDetected) B.parapertussis DNA PCR Not Detected (NotDetected) C. pneumoniae DNA (PCR) Not Detected (NotDetected) Coronavirus OC43 (PCR) Not Detected (NotDetected) Coronavirus HKU1 (PCR) Not Detected (NotDetected) Coronavirus 229E (PCR) Not Detected (NotDetected) SARS-CoV-2 (PCR) Not Detected (NotDetected) Coronavirus NL63 (PCR) Not Detected (NotDetected) Human Metapneumovir PCR Not Detected (NotDetected) Influenza Type A (PCR) Not Detected (NotDetected) Influenza Type B (PCR) Not Detected (NotDetected) M. pneumoniae (PCR) Not Detected (NotDetected) Parainfluenza 1 (PCR) Not Detected (NotDetected) Parainfluenza 2 (PCR) Not Detected (NotDetected) Parainfluenza 3 (PCR) Not Detected (NotDetected) Parainfluenza 4 (PCR) Not Detected (NotDetected) RSV (PCR) Not Detected (NotDetected) Entero/Rhino (PCR) Not Detected (NotDetected) 02/10/24 02/10/24 02/10/24 Range/Units 10:31 11:05 11:23 WBC (4.8-10.8) K/ul RBC (4.70-6.10) M/uL Hgb (14.0-18.0) g/dl POC Hgb 15.3 (14.0-18.0) g/dl Hct (42.0-52.0) % POC Hct 45 (42-52) % MCV (80.0-100.0) fL MCH (25.0-34.0) pg MCHC (32.0-36.0) g/dL RDW Std Deviation (36.4-46.3) fL RDW Coeff of [place] (11.5-14.5) % Plt Count (130-400) K/uL MPV (9.4-12.4) fL Immature Gran % (Auto) % Neut % (Auto) % Lymph % (Auto) % [place] % (Auto) % Eos % (Auto) % Baso % (Auto) % Neut # (Auto) (1.40-6.50) K/uL Lymph # (Auto) (1.20-3.40) K/uL [place] # (Auto) (0.11-0.59) K/uL Eos # (Auto) (0.00-0.50) K/uL Baso # (Auto) (0.00-0.20) K/uL Immature Gran # (Auto) (0.01-0.20) K/uL PT (9.0-12.0) Seconds INR (0.9-1.1) POC pH (7.35-7.45) POC pCO2 (35-46) mmHg POC pO2 (80-95) mmHg POC HCO3 (19-24) lalo/L POC Total CO2 32 H (24-31) mmol/L POC Base Excess (-9-1.8) lalo/L POC ABG O2 Sat (90-95) % POC Sodium 154 H (135-144) mmol/L Sodium (136-145) mmol/L POC Potassium 4.1 (3.3-5.0) mmol/L Potassium (3.5-5.1) mmol/L POC Chloride 112 (101-112) mmol/L Chloride (98-107) mmol/L Carbon Dioxide (21-32) mmol/L Anion Gap (3-11) POC Anion Gap 15.0 L (16-25) mmol/L POC BUN 37 H (7-18) mg/dl BUN (6-23) mg/dl Creatinine (0.6-1.4) mg/dl POC Creatinine 2.2 H (0.6-1.3) mg/dl Est Cr Clr Drug Dosing Est GFR ( Amer) ml/min Est GFR (Non-Af Amer) ml/min BUN/Creatinine Ratio (10-20) Glucose (70-99(Fasting)) mg/dl POC Glucose 171 H (70-99) mg/dl POC Glucose (other) 58 L* (70-99) mg/dl Lactate (0.4-2.0) mmol/L Calcium (8.6-10.3) mg/dl POC Ioniz Calcium Shirlene 1.14 (1.12-1.32) mmol/l Magnesium (1.7-2.4) mg/dl Total Bilirubin (0.2-1.0) mg/dl AST (13-39) U/L ALT (7-52) U/L Alkaline Phosphatase (34-104) U/L Total Creatine Kinase (30-223) U/L Troponin I High Sens (0-20) pg/ml Total Protein (6.0-8.3) gm/dl Albumin (3.4-5.0) gm/dl Globulin (2.5-4.0) gm/dl Albumin/Globulin Ratio (0.9-2) TSH (0.300-4.500) uIu/ml Urine Color Dark Yellow Urine Appearance Cloudy A (Clear) Urine pH 5.0 (4.5-7.5) Ur Specific [place] 1.026 (1.000-1.030) Urine Protein 1+ H (Negative) Urine Glucose (UA) Negative (Negative) Urine Ketones Trace H (Negative) Urine Blood 2+ H (Negative) Urine Nitrite Positive A (Negative) Urine Bilirubin 1+ H (Negative) Urine Urobilinogen Negative (Negative) Ur Leukocyte Esterase 1+ H (Negative) Urine WBC (Auto) >30 H (0-5) /hpf Urine RBC (Auto) 5-10 H (0-4) /hpf U Hyaline Cast (Auto) 10-30 H (0-5) /lpf U Epithel Cells (Auto) 10-20 H (0-5) /lpf Urine Bacteria (Auto) 1+ H (Negative) Adenovirus (PCR) (NotDetected) B. pertussis DNA (PCR) (NotDetected) B.parapertussis DNA PCR (NotDetected) C. pneumoniae DNA (PCR) (NotDetected) Coronavirus OC43 (PCR) (NotDetected) Coronavirus HKU1 (PCR) (NotDetected) Coronavirus 229E (PCR) (NotDetected) SARS-CoV-2 (PCR) (NotDetected) Coronavirus NL63 (PCR) (NotDetected) Human Metapneumovir PCR (NotDetected) Influenza Type A (PCR) (NotDetected) Influenza Type B (PCR) (NotDetected) M. pneumoniae (PCR) (NotDetected) Parainfluenza 1 (PCR) (NotDetected) Parainfluenza 2 (PCR) (NotDetected) Parainfluenza 3 (PCR) (NotDetected) Parainfluenza 4 (PCR) (NotDetected) RSV (PCR) (NotDetected) Entero/Rhino (PCR) (NotDetected) Administered Medications Lactated Ringer's (Lr) 1,000 mls @ 999 mls/hr IV .Q1H1M ONE Stop: 02/10/24 13:26 Last Admin: 02/10/24 12:34 Dose: 999 mls/hr Documented By: ARS Discontinued Medications Dextrose (Dextrose 50% 50 Ml Syringe) 50 ml IV NOW ONE Stop: 02/10/24 10:41 Last Admin: 02/10/24 10:44 Dose: 50 ml Documented By: EVIE Sodium Chloride (Nss) 500 mls @ 999 mls/hr IV .Q31M NAREN Stop: 02/10/24 10:45 Last Infusion: 02/10/24 13:20 Dose: Infused Documented By: Admin: 02/10/24 10:24 Dose: 999 mls/hr Documented By: EVIE Lactated Ringer's (Lr) 1,000 mls @ 999 mls/hr IV .Q1H1M ONE Stop: 02/10/24 11:43 Last Infusion: 02/10/24 13:20 Dose: Infused Documented By: Admin: 02/10/24 11:27 Dose: 999 mls/hr Documented By: ALEXANDRA Piperacillin Sod/Tazobactam Sod (Zosyn) 4.5 gm in 100 mls @ 200 mls/hr IV NOW ONE Stop: 02/10/24 12:15 Last Infusion: 02/10/24 13:20 Dose: Infused Documented By: Admin: 02/10/24 11:52 Dose: 200 mls/hr Documented By: ALEXANDRA Naloxone HCl (Naloxone Hcl 0.4 Mg/1 Ml Vial/Carp) 0.4 mg IV NOW STA Stop: 02/10/24 11:13 Last Admin: 02/10/24 11:26 Dose: 0.4 mg Documented By: ALEXANDRA Imaging Data Radiologist's Impression: Chest X-Ray 02/10/24 10:04 XR chest 1V portable CLINICAL HISTORY: weakness TECHNIQUE: Single frontal radiograph of the chest was obtained. Comparison: Comparison is made to chest radiograph 11/29/2023 FINDINGS: No lines and tubes are seen. The cardiomediastinal silhouette is stable. The lungs are clear. No evidence of pleural effusion or pneumothorax. IMPRESSION: No acute chest disease. ACT 112: Negative or not required by law. Electronically signed by: Juan Mason M.D. 02/10/2024 1:[address] 02/10/24 10:04 CT head/brain wo con CLINICAL HISTORY: ams Technique: Contiguous axial CT images of the head were acquired from the base of the skull to the vertex without intravenous contrast administration. Images were viewed in brain, subdural and bone windows. Automated dose lowering techniques and/or adjustment according to patient size were utilized for this exam. Comparison: Comparison is made to CT head 11/25/2023 Findings: Areas of decreased attenuation are present in the periventricular and subcortical white matter bilaterally consistent with small vessel ischemic disease. Generalized cerebral atrophy with commensurate enlargement of the ventricles, sulci, and cisterns is also present. There is no acute intracranial hemorrhage or evidence of acute territorial infarction. No shift of the midline structures, mass effect, or extra-axial abnormalities are shown. Atherosclerotic calcifications are present in the intracranial segments of the internal carotid arteries. Imaged portions of the paranasal sinuses and mastoid air cells are clear. The orbits appear normal. There are no acute fractures of the calvaria or scalp swelling. Impression: No acute intracranial hemorrhage, no evidence of acute territorial infarction or other acute intracranial disease process. ACT 112: Negative or not required by law. Electronically signed by: Juan Mason M.D. 02/10/2024 11:47 AM Abdomen/Pelvis CT 02/10/24 10:59 CT abd pelvis wo con CLINICAL HISTORY: shweta, ams TECHNIQUE: Helical axial images of the abdomen and pelvis were obtained. Automated dose lowering techniques and/or adjustment according to patient size were utilized for this exam. This exam was performed without intravenous contrast. COMPARISON: None available at the time of this dictation. FINDINGS: Lower chest: For findings above the diaphragm, please see CT chest performed same day. Liver: Unremarkable. No focal lesions are seen. Gallbladder and biliary tree: Patient is status post cholecystectomy. Physiologic prominence of the biliary ducts is noted. 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 Spleen: Unremarkable. Adrenals: Unremarkable. Kidneys and ureters: Multiple cysts are seen arising from the right kidney, some of which are exophytic. Bladder: Che catheter is seen. Reproductive organs: Unremarkable. Bowel: Diverticulosis is seen without diverticulitis. The appendix is normal. There is a small hiatal hernia. Lymph nodes Retroperitoneal: Unremarkable. Pelvic: Unremarkable. Mesenteric: Unremarkable. Peritoneum: Normal. Vessels: Atherosclerotic calcifications are seen. Abdominal wall: Unremarkable. Bones: Degenerative changes in the visualized spine. IMPRESSION: 1. No acute abnormalities are seen. 2. Diverticulosis without diverticulitis. 3. Redemonstration of multiple exophytic right renal cysts, several which are likely proteinaceous/hemorrhagic. 4. Additional findings as above. ACT 112: Negative or not required by law. Electronically signed by: Juan Mason M.D. 02/10/2024 12:[address] 02/10/24 10:59 CT chest diagnostic wo con CLINICAL HISTORY: ams, ?aspiration TECHNIQUE: Multidetector row helical CT of the chest was performed. Coronal and sagittal reformations were obtained. Automated dose lowering techniques and/or adjustment according to patient size were utilized for this exam. CT DOSE: 1909.07 mGy.cm Comparison: Comparison is made to CT chest 11/29/2023 FINDINGS: Lungs and pleura: Atelectasis versus scarring is seen in the dependent portions of the lungs. 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 Cardiomegaly and biatrial enlargement. Vessels: Severe atherosclerotic changes in the aorta and coronary arteries. Mediastinum and raine: Unremarkable. Chest wall and lower neck: Unremarkable. Abdomen: Patient is status post cholecystectomy. Fatty replacement is seen in the pancreas. There is a small hiatal hernia. Partial visualization of right renal cysts. Bones: Unremarkable. IMPRESSION: Atelectasis is seen. No evidence of aspiration or pneumonia. ACT 112: Negative or not required by law. Electronically signed by: Juan Mason M.D. 02/10/2024 11:58 AM Discharge Plan Visit Data Chief Complaint: Unresponsive ED Provider: Vasyl Nguyen Discharge Problem: AMS (altered mental status), SHWETA (acute kidney injury), Acute hypernatremia, Acute UTI, Hypothermia, Dehydration Patient Disposition: Being Evaluated by Hospitalist Forms Stand Alone Forms: [facility] Prescriptions Prescriptions: No Action pyridostigmine bromide [Mestinon] 60 mg Tablet 60 mg PO TID Rx Instructions: Morning/Noon/Evening pravastatin 40 mg Tablet 40 mg PO QPM acetaminophen [Tylenol] 325 mg Capsule 975 mg PO TID PRN (Reason: Fever Or Pain) clopidogrel 75 mg tablet 75 mg PO QAM Hold Instructions: ISO possible LP, resume when able pyridostigmine bromide 180 mg Tablet Extended Release 180 mg PO HS Hold Instructions: Hold until told to resume by Neurologist Rx Instructions: administer 6 hours apart aspirin 81 mg tablet,chewable 81 mg PO QAM cyanocobalamin (vitamin B-12) [Vitamin B-12] 1,000 mcg Tablet 500 mcg PO QAM levothyroxine [Synthroid] 50 mcg Tablet 50 mcg PO DAILYBB Qty: 30 0RF olanzapine 5 mg Tablet,Disintegrating 5 mg PO HS Qty: 30 0RF ergocalciferol (vitamin D2) [Vitamin D2] 1,250 mcg (50,000 unit) Capsule 1,250 mcg PO WK clotrimazole 1 % Cream 1 applic TOPICAL BID PRN (Reason: Unknown) losartan 50 mg Tablet 50 mg PO QAM amiodarone 200 mg Tablet 200 mg PO BID Referrals Referrals: Juan Dominique MD [Primary Care Provider] -
[2024-02-10 10:44] LABS: iSTAT Creatinine 2.2 mg/dl (0.6-1.3); iSTAT Hemoglobin 15.3 g/dl (14.0-18.0); iSTAT Ionized Calcium 1.14 mmol/l (1.12-1.32); iSTAT Potassium 4.1 mmol/L (3.3-5.0)
[2024-02-10] MEDS: DEXTROSE 50% 50 ML SYRINGE IV ONE (10:44)
[2024-02-10 10:57] LABS: Alanine Aminotransferase 48 U/L (7-52); Albumin Globulin Ratio 0.9 (0.9-2); Albumin Level 3.6 gm/dl (3.4-5.0); Alkaline Phosphatase 191 U/L (34-104); Anion Gap 10 (3-11); Aspartate Aminotransferase 114 U/L (13-39); Bilirubin,Total 0.8 mg/dl (0.2-1.0); Blood Urea Nitrogen 39 mg/dl (6-23); Calcium 9.9 mg/dl (8.6-10.3); Carbon Dioxide 29 mmol/L (21-32); Chloride 114 mmol/L (98-107); Creatine Kinase 84 U/L (30-223); Est GFR (African American) 38.5 ml/min; Est GFR (Non-African American) 33.2 ml/min; Glucose 62 mg/dl (70-99(Fasting)); Magnesium 2.4 mg/dl (1.7-2.4); Potassium 4.1 mmol/L (3.5-5.1); Sodium 153 mmol/L (136-145); Total Protein 7.6 gm/dl (6.0-8.3)
[2024-02-10 11:02] LABS: Troponin I High Sensitivity 8.1 pg/ml (0-20)
[2024-02-10 11:04] LABS: INR 1.1 (0.9-1.1); Prothrombin Time 11.8 Seconds (9.0-12.0)
[2024-02-10 11:11] LABS: Thyroid Stimulating Hormone 3.591 uIu/ml (0.300-4.500)
[2024-02-10] MEDS: NALOXONE HCL 0.4 MG/1 ML VIAL/CARP IV STA (11:26)
[2024-02-10] MEDS: LACTATED RINGER'S 1,000 ML IV ONE ×2 (11:27→12:34)
[2024-02-10 11:32] LABS: Appearance Urine Cloudy (Clear); Bacteria Urine Automated 1+ (Negative); Blood Urine 2+ (Negative); Color Urine Dark Yellow; Glucose Urine UA Negative (Negative); Ketones Urine Trace (Negative); Leukocyte Esterase Urine 1+ (Negative); Nitrite Urine Positive (Negative); Protein Urine 1+ (Negative); Specific Gravity Urine 1.026 (1.000-1.030); Urobilinogen Urine Negative (Negative); WBC Urine Automated >30 /hpf (0-5)
[2024-02-10 11:39] LABS: Bilirubin Urine 1+ (Negative)
[2024-02-10 11:47] LABS: Adenovirus PCR Not Detected (NotDetected); Bordetella parapertussis PCR Not Detected (NotDetected); Bordetella pertussis PCR Not Detected (NotDetected); Chlamydia pneumoniae PCR Not Detected (NotDetected); Coronavirus 229E PCR Not Detected (NotDetected); Coronavirus CoV-2 (COVID19)PCR Not Detected (NotDetected); Coronavirus HKU1 PCR Not Detected (NotDetected); Coronavirus NL63 PCR Not Detected (NotDetected); Coronavirus OC43PCR Not Detected (NotDetected); Human Metapneumovirus PCR Not Detected (NotDetected); Influenza A PCR Not Detected (NotDetected); Influenza B PCR Not Detected (NotDetected); Mycoplasma pneumoniae PCR Not Detected (NotDetected); Parainfluenza Virus 1 PCR Not Detected (NotDetected); Parainfluenza Virus 2 PCR Not Detected (NotDetected); Parainfluenza Virus 3 PCR Not Detected (NotDetected); Parainfluenza Virus 4 PCR Not Detected (NotDetected); Respiratory Syncytial VirusPCR Not Detected (NotDetected); Rhinovirus/Enterovirus PCR Not Detected (NotDetected)
--- NOTE | 2024-02-10 11:48 | CT Scan Report ---
CT head/brain wo con CLINICAL HISTORY: ams Technique: Contiguous axial CT images of the head were acquired from the base of the skull to the laurence abe without intravenous contrast administration. Images were viewed [facility] Automated dose lowering techniques and/or adjustment according to patient size were utilized for this exam. Comparison: Comparison is made to CT head 11/25/2023 Findings: Areas of decreased attenuation are present in the periventricular and subcortical white matter bilate rally consistent with small vessel ischemic disease. Generalized cerebral atrophy with commensurate e nlargement of the ventricles, sulci, and cisterns is also present. There is no acute intracranial hem orrhage or evidence of acute territorial infarction. No shift of the midline structures, mass effect, or extra-axial abnormalities are shown. Atherosclerotic calcifications are present in the intracran ial segments of the internal carotid arteries. Imaged portions of the paranasal sinuses and mastoid air cells are clear. The orbits appear normal. There are no acute fractures of the calvaria or scalp swelling. Impression: No acute intracranial hemorrhage, no evidence of acute territorial infarction or other acute intracra nial disease process. ACT 112: Negative or not required by law. Electronically signed by: Juan Mason M.D. 02/10/2024 11:47 AM
[2024-02-10] MEDS: PIPERACILLIN/TAZOBACTAM 4.5 GM/100 ML BAG IV ONE (11:52)
--- NOTE | 2024-02-10 12:00 | CT Scan Report ---
CT chest diagnostic wo con CLINICAL HISTORY: ams, ?aspiration TECHNIQUE: Multidetector row helical CT of the chest was performed. Coronal and sagittal reformations were obtained. Automated dose lowering techniques and/or adjustment according to patient size were u tilized for this exam. CT DOSE: 1909.07 mGy.cm Comparison: Comparison is made to CT chest 11/29/2023 FINDINGS: Lungs and pleura: Atelectasis versus scarring is seen in the dependent portions of the lungs. 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 Cardiomegaly and biatrial enlargeme nt. Vessels: Severe atherosclerotic changes in the aorta and coronary arteries. Mediastinum and raine: Unremarkable. Chest wall and lower neck: Unremarkable. Abdomen: Patient is status post cholecystectomy. Fatty replacement is seen in the pancreas. There is a small hiatal hernia. Partial visualization of right renal cysts. Bones: Unremarkable. IMPRESSION: Atelectasis is seen. No evidence of aspiration or pneumonia. ACT 112: Negative or not required by law. Electronically signed by: Juan Mason M.D. 02/10/2024 11:58 AM
--- NOTE | 2024-02-10 12:06 | CT Scan Report ---
CT abd pelvis wo con CLINICAL HISTORY: kelsie, ams TECHNIQUE: Helical axial images of the abdomen and pelvis were obtained. Automated dose lowering tech niques and/or adjustment according to patient size were utilized for this exam. This exam was perfor med without intravenous contrast. COMPARISON: None available at the time of this dictation. FINDINGS: Lower chest: For findings above the diaphragm, please see CT chest performed same day. Liver: Unremarkable. No focal lesions are seen. Gallbladder and biliary tree: Patient is status post cholecystectomy. Physiologic prominence of the b iliary ducts is noted. 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 Spleen: Unremarkable. Adrenals: Unremarkable. Kidneys and ureters: Multiple cysts are seen arising from the right kidney, some of which are exophyt ic. Bladder: Che catheter is seen. Reproductive organs: Unremarkable. Bowel: Diverticulosis is seen without diverticulitis. The appendix is normal. There is a small hiatal hernia. Lymph nodes Retroperitoneal: Unremarkable. Pelvic: Unremarkable. Mesenteric: Unremarkable. Peritoneum: Normal. Vessels: Atherosclerotic calcifications are seen. Abdominal wall: Unremarkable. Bones: Degenerative changes in the visualized spine. IMPRESSION: 1. No acute abnormalities are seen. 2. Diverticulosis without diverticulitis. 3. Redemonstration of multiple exophytic right renal cysts, several which are likely proteinaceous/h emorrhagic. 4. Additional findings as above. ACT 112: Negative or not required by law. Electronically signed by: Juan Mason M.D. 02/10/2024 12:04 PM
--- NOTE | 2024-02-10 13:03 | XRay Report ---
XR chest 1V portable CLINICAL HISTORY: weakness TECHNIQUE: Single frontal radiograph of the chest was obtained. Comparison: Comparison is made to chest radiograph 11/29/2023 FINDINGS: No lines and tubes are seen. The cardiomediastinal silhouette is stable. The lungs are clear. No evid ence of pleural effusion or pneumothorax. IMPRESSION: No acute chest disease. ACT 112: Negative or not required by law. Electronically signed by: Juan Mason M.D. 02/10/2024 1:02 PM
--- NOTE | 2024-02-10 13:50 | History & Physical Report ---
Date of Service February 10, 2024 Assessment & Plan (1) Metabolic encephalopathy: (2) Severe sepsis: (3) Acute UTI: (4) Hypothermia: (5) SHWETA (acute kidney injury): (6) Acute hypernatremia: Plan This is a 83 year old male with PMH HTN, HLD, atrial fibrillation not on anticoagulation due to history SAH, s/p watchman 09/2023 on DAPT, DM II, myasthenia gravis, depression, progressive dysphagia who presents to ED due to worsened mental status. Of significance pt was in ED initially on 11/26/2022 due to worsening headaches, dysphagia, and episode of confusion. He experienced a progressive neurologic decline and transferred to [facility] on 11/29 for neurologic eval and LP. No clear etiology of patient's decline was revealed. Patient was evaluated by general surgey and not a candidate for PEG placement. Patient's course complicated by C diff and completed oral vanc for 14 days on 12/28. Patient then transferred to [facility] on 12/29 while placement is pending for penitentiary care. He was hospitalized here until 01/09/2024 awaiting placement. His hospital course here was notable for SHWETA which resolved with IV fluids. Since November pt has not regained his mentation. He remains confused but typically alert at baseline. Over last week has been, "out of it." He lost his 1 week ago. Discussion was had with 2 daughters and son-in-law at bedside given patient's current condition, assessment and prognosis. They wish to pursue DNR/DNI, but would like to pursue treatment for acute underlying conditions to determine if he is able to regain consciousness. This potentially will need to be readdressed in the next 24 hours if no improvement in patient's clinical status. Metabolic encephalopathy Severe sepsis -borderline shock Acute UTI Hypothermia Admit to PCU He received 2.5 L of IV fluid in ED Will continue on D5 water at 90 cc/h Continue with broad-spectrum antibiotic, IV Zosyn Await blood and urine cultures Continue Kali collins for rewarming Discussed with family at bedside, they would be agreeable to vasopressor support to maintain MAP if necessary, will follow closely SHWETA Acute hypernatremia Suspect in setting of poor intake and underlying confused elderly male Family also reports currently being treated, again, for C. difficile with oral vancomycin It is unclear if he has been having any GI losses Free water loss around 3.5L Continue D5 water at 90 cc/h Consult nephrology BMP at 3 PM and 8 PM Pre diabetes Hypoglycemic Last A1c was 6.0 Sliding scale insulin every 4 hours due to n.p.o. status and requiring D5 water Repeat A1c in a.m. History of C. difficile Patient treated with C. difficile in December, currently on oral vancomycin per JAN from [facility] unsure if ongoing diarrhea, will monitor stool when pt becomes more alert and able to take PO, would initiate oral vanco at least empirically if not having diarrhea Recurrent mechanical falls Ambulatory dysfunction Prior subdural hematoma traumatic fall 12/2021 with hematoma noted Fall precautions Hypothyroidism TSH WNL Resume levothyroxine 50mg when able Paroxysmal Atrial Fibrillation s/p watchman Chronic RBBB Symptomatic bradycardia [id number] 3, HASBLED 2 01/2022, newly diagnosed A Fib RVR, discharged with amiodarone; discontinued 11/2022, however reverted back to a fib and placed on amio/metoprolol/dilt s/p cardioversion Followed with Dr Mcneil 05/2023 during admission, during that time amiodarone continued, metoprolol Watchman placed 09/2023 amiodarone d/c last hospitalization Placed on DAPT post watchman to continue for reportedly 6 months, then asa 83 indefinitely Continue ASA and plavix no device at this time due to it not changing trajectory of patient at this time HTN previous antihypertensive DC'd at last hospitalization Carotid stenosis s/p CEA HLD Continue pravastatin DVT pp: SQ Heparin : reynoso in take, strict intake and output DIET: NPO , Hold all TELECOMM[employer]WORK [employer] medications until more alert DNR/DNI - discussion as above PCP: Dr. Jacques at [facility] Pt was seen and examined in collaboration with Dr. Madison, please see addendum A total of 95 minutes was spent coordinating, documenting, and providing care for this patient excluding time spent in the performance of separately billed services. This included personally viewing all current laboratories and imaging studies, medication reconciliation, outpatient chart review, and discussion with specialists. History of Present Illness Chief Complaint: Altered mental status. Primary Care Provider: Juan August MD This is a 83 year old male with PMH HTN, HLD, atrial fibrillation not on anticoagulation due to history SAH, s/p watchman 09/2023 on DAPT, DM II, myasthenia gravis, depression, progressive dysphagia who presents to ED due to worsened mental status. History obtained from inpatient and outpatient chart review along with ED provider. Of note pt with significant recent hospitalizations: ED initially on 11/26/2022 due to worsening headaches, dysphagia, and episode of confusion. He experienced a progressive neurologic decline and transferred to [facility] on 11/29 for neurologic eval and LP. No clear etiology of patient's decline was revealed. Patient was evaluated by general radhay and not a candidate for PEG placement. Patient's course complicated by C diff and completed oral vanc for 14 days on 12/28. 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 He was hospitalized here until 01/09/2024 awaiting placement. His hospital course here was notable for SHWETA which resolved with IV fluids. Patient was seen and evaluated by florecita kirk in [place] in regards to his history of myasthenia gravis. He was recommended to continue TELE[employer]WORK [employer]ER pyridostigmine 30 mg 3 times a day on discharge but hold long-acting pyridostigmine 180 mg daily until he follows up with neurology as outpatient. He was also started on olanzapine by palliative medicine. He was transferred to [facility] upon bed availability on 01/09/24. 2 daughters and son-in-law were at bedside. History unobtainable from patient. Family members at bedside states that he was in his normal state of health in November when his difficulties with memory and neurologic decline began. They state it began all of a sudden. Despite prolonged hospitalization and transfer to tertiary center his current status remains unexplained. They state that this remains constant and he continues to remain in a state of confusion. He typically is more alert and will occasionally recognize family members, but mostly is confused. They noted over the past week he has mostly, "out of it." They were told that he does have a wound on his buttock and they were giving him morphine throughout the week. They are unaware if he has had any fevers or coughs. They state that when they witnessed him eating meals and swallowing it did not appear as if he was aspirating. In ED patient was hypothermic, hypotensive and bradycardic. He had evidence of severe dehydration and hyponatremia. There is also concern for sepsis and UTI. Discussion was made with family at bedside for patient to be DNR/DNI. Past medical, social and surgical history was reviewed. This was also reviewed in the outpatient setting. Unobtainable from patient himself. Allergies Allergy/AdvReac Type Severity Reaction Status Date / Time felodipine Allergy Intermediate hives Verified 02/10/24 12:18 flunisolide Allergy Unknown other Verified 02/10/24 12:18 gabapentin AdvReac Intermediate GI SYMPTOMS Verified 02/10/24 12:18 Thiazides AdvReac Intermediate CAUSED GOUT Verified 02/10/24 12:18 Home Medications Medication Instructions Recorded Confirmed Type pravastatin 40 mg tablet 40 mg PO QPM 12/23/21 02/10/24 History pyridostigmine bromide 60 mg 60 mg PO TID 12/23/21 02/10/24 History tablet (Mestinon) acetaminophen 325 mg capsule 975 mg PO TID PRN Fever Or Pain 01/21/22 02/10/24 History (Tylenol) clopidogrel 75 mg tablet 75 mg PO QAM 11/26/23 02/10/24 History aspirin 81 mg chewable tablet 81 mg PO QAM 12/29/23 02/10/24 History cyanocobalamin (vitamin B-12) 500 mcg PO QAM 12/29/23 02/10/24 History 1,000 mcg tablet (Vitamin B-12) levothyroxine 50 mcg tablet 50 mcg PO DAILYBB #30 tabs 01/08/24 02/10/24 Rx (Synthroid) olanzapine 5 mg disintegrating 5 mg PO HS #30 tabs 01/08/24 02/10/24 Rx tablet clotrimazole 1 % topical cream 1 applic topical BID PRN Unknown 02/10/24 02/10/24 History ergocalciferol (vitamin D2) 1,250 1,250 mcg PO WK 02/10/24 02/10/24 History mcg (50,000 unit) capsule (Vitamin D2) vancomycin 25 mg/mL oral solution 125 mg PO QID 02/10/24 02/10/24 History (Firvanq) Past Med/Surg History Medical History C. difficile diarrhea Encephalopathy Carotid stenosis s/p carotid endarterectomy, side unknown Left ureteral stone Kidney lesion Atrial fibrillation [facility] [place] [facility] 07/2022 MDD (major depressive disorder) DM II (diabetes mellitus, type II), controlled diet controlled, no longer on meds HLD (hyperlipidemia) HTN (hypertension) History of subarachnoid hemorrhage 12/2021 Myasthenia gravis IBS (irritable bowel syndrome) Surgical History History of carotid endarterectomy done about 5 yrs ago, [facility] [place] Hx of cystoscopy w/ stent 10/20/22 MAC. Post-op anesthesia progress note: "slightly hypotensive but is close to his preoperative baseline and has been receiving Vancomycin through his IV. His other vital signs are stable." History of vasectomy S/P cholecystectomy Family History Father Stroke Social History Smoking Status: Unknown if ever smoked Tobacco Type: Cigarettes Second Hand Exposure: No; Do You Dip or Chew Tobacco: No; Hx Alcohol Use: No Hx Substance Use: No Preferred Language: Estonian Communication Ability: Impaired Visual Impairment: No Limitations Derrick Worker Required: No Beliefs That Will Affect Care: None marital status: Current Living Situation: Spouse current occupational status: retired Feels Safe at Home: Yes caffeine: Yes Assistive Devices: Cane Review of Systems Review of Systems: All systems reviewed & are unremarkable except as noted in HPI & below Physical Exam Physical Exam: Constitutional: Elderly, acutely ill, unresponsive, vitals as above, NAD Head: Normocephalic, Atraumatic Eyes: Pupils equal and responsive, conjunctivae normal, anicteric sclerae ENMT: external ear and nose normal, oropharynx with very dry mucous membranes Neck: trachea midline, no thyromegaly normal visual inspection Respiratory: Decreased respiratory effort, lungs clear to auscultation but poor inspiratory effort, no wheeze, rales, rhonchi noted. Normal insp/exp effort, no accessory muscle use Cardiovascular: Bradycardic rate, regular rhythm, no murmur, no edema Vessels: no JVD or carotid bruit Chest: normal inspection of chest Abdomen: normal bowel sounds, soft, nontender, no hepatosplenomegaly Musculoskeletal: Unable to assess due to unresponsiveness Skin: no rashes, warm and dry normal turgor Neurologic: no face palsy Psychiatric: Unresponsive : Reynoso catheter with yellow urine noted in tubing, but none in bag Results & Data Results & Data Vital Signs (Past 12 Hours) Vital Signs Temp Pulse Resp BP Pulse Ox O2 Del Method 02/10/24 13:15 81/50 L 02/10/24 13:15 55 L 17 97 02/10/24 13:10 54 L 18 96 02/10/24 13:10 89/48 L 02/10/24 13:05 53 L 22 96 02/10/24 13:05 91/48 L 02/10/24 13:00 53 L 16 96/50 L 97 02/10/24 12:55 54 L 18 88/47 L 96 02/10/24 12:50 53 L 25 H 87/46 L 97 02/10/24 12:45 61 19 85/46 L 97 02/10/24 12:40 52 L 18 92/46 L 96 02/10/24 12:35 56 L 27 H 90/46 L 97 02/10/24 12:30 49 L 14 84/48 L 97 02/10/24 12:25 49 L 18 93/48 L 96 02/10/24 12:20 48 L 16 92/48 L 96 02/10/24 12:15 48 L 16 92/49 L 97 02/10/24 12:10 47 L 12 88/52 L 98 02/10/24 12:05 48 L 16 73/44 L 96 02/10/24 12:00 48 L 11 L 96 02/10/24 11:55 48 L 12 81/45 L 97 02/10/24 11:53 48 L 12 82/44 L 98 02/10/24 11:50 46 L 14 86/50 L 98 02/10/24 11:46 46 L 12 97 02/10/24 11:45 45 L 11 L 71/38 L 90 02/10/24 11:40 51 L 14 98 02/10/24 11:35 57 L 13 98 02/10/24 11:34 45 L 17 112/66 99 Room Air 02/10/24 11:30 45 L 10 L 79/45 L 98 02/10/24 11:20 42 L 16 99/50 L 98 02/10/24 11:00 40 L 21 100/46 L 98 02/10/24 10:45 47 L 8 L 98/56 L 100 Room Air 02/10/24 10:40 34.8 C L 02/10/24 10:38 34.8 C L 02/10/24 10:36 52 L 8 L 111/60 98 Room Air 02/10/24 10:23 52 L 02/10/24 10:18 58 L 96 Room Air 02/10/24 10:16 Room Air 02/10/24 10:11 66 6 L 103/60 96 Room Air Diagnostic Findings Chest X-Ray 02/10/24 10:04 XR chest 1V portable CLINICAL HISTORY: weakness TECHNIQUE: Single frontal radiograph of the chest was obtained. Comparison: Comparison is made to chest radiograph 11/29/2023 FINDINGS: No lines and tubes are seen. The cardiomediastinal silhouette is stable. The lungs are clear. No evidence of pleural effusion or pneumothorax. IMPRESSION: No acute chest disease. ACT 112: Negative or not required by law. Electronically signed by: Juan Mason M.D. 02/10/2024 1:[address] 02/10/24 10:04 CT head/brain wo con CLINICAL HISTORY: ams Technique: Contiguous axial CT images of the head were acquired from the base of the skull to the vertex without intravenous contrast administration. Images were viewed in brain, subdural and bone windows. Automated dose lowering techniques and/or adjustment according to patient size were utilized for this exam. Comparison: Comparison is made to CT head 11/25/2023 Findings: Areas of decreased attenuation are present in the periventricular and subcortical white matter bilaterally consistent with small vessel ischemic disease. Generalized cerebral atrophy with commensurate enlargement of the ventricles, sulci, and cisterns is also present. There is no acute intracranial hemorrhage or evidence of acute territorial infarction. No shift of the midline structures, mass effect, or extra-axial abnormalities are shown. Atherosclerotic calcifications are present in the intracranial segments of the internal carotid arteries. Imaged portions of the paranasal sinuses and mastoid air cells are clear. The orbits appear normal. There are no acute fractures of the calvaria or scalp swelling. Impression: No acute intracranial hemorrhage, no evidence of acute territorial infarction or other acute intracranial disease process. ACT 112: Negative or not required by law. Electronically signed by: Juan Mason M.D. 02/10/2024 11:47 AM Abdomen/Pelvis CT 02/10/24 10:59 CT abd pelvis wo con CLINICAL HISTORY: shweta, ams TECHNIQUE: Helical axial images of the abdomen and pelvis were obtained. Automated dose lowering techniques and/or adjustment according to patient size were utilized for this exam. This exam was performed without intravenous contrast. COMPARISON: None available at the time of this dictation. FINDINGS: Lower chest: For findings above the diaphragm, please see CT chest performed same day. Liver: Unremarkable. No focal lesions are seen. Gallbladder and biliary tree: Patient is status post cholecystectomy. Physiologic prominence of the biliary ducts is noted. 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 Spleen: Unremarkable. Adrenals: Unremarkable. Kidneys and ureters: Multiple cysts are seen arising from the right kidney, some of which are exophytic. Bladder: Reynoso catheter is seen. Reproductive organs: Unremarkable. Bowel: Diverticulosis is seen without diverticulitis. The appendix is normal. There is a small hiatal hernia. Lymph nodes Retroperitoneal: Unremarkable. Pelvic: Unremarkable. Mesenteric: Unremarkable. Peritoneum: Normal. Vessels: Atherosclerotic calcifications are seen. Abdominal wall: Unremarkable. Bones: Degenerative changes in the visualized spine. IMPRESSION: 1. No acute abnormalities are seen. 2. Diverticulosis without diverticulitis. 3. Redemonstration of multiple exophytic right renal cysts, several which are likely proteinaceous/hemorrhagic. 4. Additional findings as above. ACT 112: Negative or not required by law. Electronically signed by: Juan Mason M.D. 02/10/2024 12:[address] 02/10/24 10:59 CT chest diagnostic wo con CLINICAL HISTORY: ams, ?aspiration TECHNIQUE: Multidetector row helical CT of the chest was performed. Coronal and sagittal reformations were obtained. Automated dose lowering techniques and/or adjustment according to patient size were utilized for this exam. CT DOSE: 1909.07 mGy.cm Comparison: Comparison is made to CT chest 11/29/2023 FINDINGS: Lungs and pleura: Atelectasis versus scarring is seen in the dependent portions of the lungs. 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 Cardiomegaly and biatrial enlargement. Vessels: Severe atherosclerotic changes in the aorta and coronary arteries. Mediastinum and raine: Unremarkable. Chest wall and lower neck: Unremarkable. Abdomen: Patient is status post cholecystectomy. Fatty replacement is seen in the pancreas. There is a small hiatal hernia. Partial visualization of right renal cysts. Bones: Unremarkable. IMPRESSION: Atelectasis is seen. No evidence of aspiration or pneumonia. ACT 112: Negative or not required by law. Electronically signed by: Juan Mason M.D. 02/10/2024 11:58 AM Medications Administered Medication List Dextrose (D5w) 1,000 mls @ 80 mls/hr IV .[id number] [facility] Stop: 03/11/24 13:59 Last Admin: 02/10/24 14:16 Dose: 80 mls/hr Documented By: ALEXANDRA Discontinued Medications Dextrose (Dextrose 50% 50 Ml Syringe) 50 ml IV NOW ONE Stop: 02/10/24 10:41 Last Admin: 02/10/24 10:44 Dose: 50 ml Documented By: EVIE Sodium Chloride (Nss) 500 mls @ 999 mls/hr IV .Q31M NAREN Stop: 02/10/24 10:45 Last Infusion: 02/10/24 13:20 Dose: Infused Documented By: Admin: 02/10/24 10:24 Dose: 999 mls/hr Documented By: EVIE Lactated Ringer's (Lr) 1,000 mls @ 999 mls/hr IV .Q1H1M ONE Stop: 02/10/24 11:43 Last Infusion: 02/10/24 13:20 Dose: Infused Documented By: Admin: 02/10/24 11:27 Dose: 999 mls/hr Documented By: ALEXANDRA Piperacillin Sod/Tazobactam Sod (Zosyn) 4.5 gm in 100 mls @ 200 mls/hr IV NOW ONE Stop: 02/10/24 12:15 Last Infusion: 02/10/24 13:20 Dose: Infused Documented By: Admin: 02/10/24 11:52 Dose: 200 mls/hr Documented By: ALEXANDRA Lactated Ringer's (Lr) 1,000 mls @ 999 mls/hr IV .Q1H1M ONE Stop: 02/10/24 13:26 Last Infusion: 02/10/24 13:36 Dose: Infused Documented By: Admin: 02/10/24 12:34 Dose: 999 mls/hr Documented By: ALEXANDRA Lactated Ringer's (Lr) 250 mls @ 999 mls/hr IV .Q16M ONE Stop: 02/10/24 13:52 Last Admin: 02/10/24 14:16 Dose: 999 mls/hr Documented By: ARS Naloxone HCl (Naloxone Hcl 0.4 Mg/1 Ml Vial/Carp) 0.4 mg IV NOW STA Stop: 02/10/24 11:13 Last Admin: 02/10/24 11:26 Dose: 0.4 mg Documented By: ARS ECG Additional Comments: Sinus bradycardia, 52 bpm, no significant ST or T wave noted This was independently interpreted and viewed by myself COVID-19 Results Results COVID-19 Adm Lab Results: RBC 5.09 M/uL (4.70-6.10) 02/10/24 WBC 4.70 K/ul (4.8-10.8) L 02/10/24 Hgb 14.8 g/dl (14.0-18.0) 02/10/24 Hct 46.5 % (42.0-52.0) 02/10/24 Plt Count 145 K/uL (130-400) 02/10/24 Neutrophils (%) (Auto) 70.6 % 02/10/24 Lymphocytes (%) (Auto) 14.9 % 02/10/24 Monocytes # (Auto) 0.61 K/uL (0.11-0.59) H 02/10/24 Eosinophils # (Auto) 0.05 K/uL (0.00-0.50) 02/10/24 Immature Granulocyte % (Auto) 0.0 % 02/10/24 Neutrophils # (Auto) 3.32 K/uL (1.40-6.50) 02/10/24 Lymphocytes # (Auto) 0.70 K/uL (1.20-3.40) L 02/10/24 Monocytes # (Auto) 0.61 K/uL (0.11-0.59) H 02/10/24 Eosinophils # (Auto) 0.05 K/uL (0.00-0.50) 02/10/24 Basophils # (Auto) 0.02 K/uL (0.00-0.20) 02/10/24 Immature Granulocyte # (Auto) 0.00 K/uL (0.01-0.20) L 02/09 Na 153 mmol/L (136-145) H 02/10/24 K 4.1 mmol/L (3.5-5.1) 02/10/24 Cl 114 mmol/L (98-107) H 02/10/24 CO2 29 mmol/L (21-32) 02/10/24 Anion Gap 10 (3-11) 02/10/24 BUN 39 mg/dl (6-23) H 02/10/24 Creatinine 1.86 mg/dl (0.6-1.4) H 02/10/24 BUN/Creatinine Ratio 21.0 (10-20) H 02/10/24 Glucose Level 62 mg/dl (70-99(Fasting)) L 02/10/24 Ca 9.9 mg/dl (8.6-10.3) 02/10/24 Total Bilirubin 0.8 mg/dl (0.2-1.0) 02/10/24 AST/SGOT 114 U/L (13-39) H 02/10/24 ALT/SGPT 48 U/L (7-52) 02/10/24 Alkaline Phosphatase 191 U/L (34-104) H 02/10/24 Total Protein 7.6 gm/dl (6.0-8.3) 02/10/24 Albumin 3.6 gm/dl (3.4-5.0) 02/10/24 Globulin 4.0 gm/dl (2.5-4.0) 02/10/24 Albumin/Globulin Ratio 0.9 (0.9-2) 02/10/24 Total CK 84 U/L (30-223) 02/10/24 INR 1.1 (0.9-1.1) 02/10/24 Adenovirus (PCR) Not Detected (NotDetected) 02/10/24 B. parapertussis DNA (PCR) Not Detected (NotDetected) 04/29 B. pertussis DNA (PCR) Not Detected (NotDetected) 02/10/24 C. pneumoniae DNA (PCR) Not Detected (NotDetected) 4 Coronavirus Type OC43 (PCR) Not Detected (NotDetected) 04/29 Coronavirus Type HKU1 (PCR) Not Detected (NotDetected) 04/29 Coronavirus Type 229E (PCR) Not Detected (NotDetected) 04/29 COVID-19 PCR Not Detected (NotDetected) 02/10/24 Coronavirus Type NL63 (PCR) Not Detected (NotDetected) 04/29 Human Metapneumovirus (PCR) Not Detected (NotDetected) 04/29 Influenza Virus Type A (PCR) Not Detected (NotDetected) Influenza Virus Type B (PCR) Not Detected (NotDetected) M. pneumoniae (PCR) Not Detected (NotDetected) 02/10/24 Parainfluenza Type 1 (PCR) Not Detected (NotDetected) 04/29 Parainfluenza Type 2 (PCR) Not Detected (NotDetected) 04/29 Parainfluenza Type 3 (PCR) Not Detected (NotDetected) 04/29 Parainfluenza Type 4 (PCR) Not Detected (NotDetected) 04/29 RSV (PCR) Not Detected (NotDetected) 02/10/24 Enterovirus/Rhinovirus (PCR) Not Detected (NotDetected) POC pH 7.35 (7.35-7.45) 02/10/24 POC pCO2 54 mmHg (35-46) H 02/10/24 POC pO2 88 mmHg (80-95) 02/10/24 POC HCO3 30 lalo/L (19-24) H 02/10/24 POC Total CO2 32 mmol/L (24-31) H 02/10/24 POC Base Excess 4.0 lalo/L (-9-1.8) H 02/10/[address] 02/10/24 Chest X-Ray 02/10/24 Code Status & VTE Plan Code Status DNR/DNI VTE Prophylaxis Plan VTE Prophylaxis will be ordered: Yes Supervising Physician Co-Signing Physician Notes Patient was seen and examined with Randee CHRISTIAN at bedside in presence of family. Chart reviewed including recent prolonged hospitalization here and at [facility]. Case discussed with Randee CHRISTIAN and agree with the documentation above. In summary, this is a 83-year-old male with progressive neurological decline over the past few months with negative extensive workup, sent to the ED today from [facility] for hypoxia and altered mental status. Patient somnolent, not waking up with verbal stimuli, history obtained from family at bedside. Discussed about CODE STATUS and they would like DNR/DNI, however continue to treat medically as indicated. Labs, imaging and vitals reviewed. BP higher 80s, hypothermic. Noted to have severe sepsis with UTI with hypernatremia sodium 154, also noted recent C. difficile infection. Continue IVF, empiric Zosyn pending culture results and p.o. vancomycin for C. difficile prophylaxis. Midodrine for pressor support. Kali hugger for hypothermia. Admit to PCU. On reevaluation in PCU, BP improved to 110s. Rest as per note above. On exam- General: Unresponsive to verbal stimuli, not in acute distress on Kali hugger HEENT: CHANO Chest: Fair breath sounds anteriorly CVS: Bradycardic, regular Abdomen: Soft, non tender, not distended, normal bowel sounds Neuro: Unresponsive to verbal stimuli Extremities: No edema
[2024-02-10] MEDS: LACTATED RINGER'S 250 ML IV ONE (14:16)
[2024-02-10] MEDS: DEXTROSE 5% 1,000 ML IV SCH ×2 (14:16→20:56)
[2024-02-10] MEDS ORDERED: GLUCOSE 40% GEL 15 GM TUBE PO PRN (15:34)
[2024-02-10] MEDS ORDERED: GLUCOSE 10 TAB/TUBE PO PRN (15:34)
[2024-02-10] MEDS ORDERED: GLUCAGON FOR INJ 1 MG VIAL SQ PRN (15:34)
[2024-02-10] MEDS ORDERED: ONDANSETRON INJ 2 MG/ML 2 ML VIAL IV PRN (15:34)
[2024-02-10] MEDS ORDERED: DEXTROSE 50% 50 ML SYRINGE IV PRN (15:34)
[2024-02-10] MEDS ORDERED: CARBOHYDRATES FOR HYPOGLYCEMIA PO PRN (15:34)
[2024-02-10 16:25] LABS: Anion Gap 6 (3-11); BUN Creatinine Ratio 19.3 (10-20); Blood Urea Nitrogen 35 mg/dl (6-23); Calcium 8.7 mg/dl (8.6-10.3); Carbon Dioxide 30 mmol/L (21-32); Chloride 111 mmol/L (98-107); Creatine Kinase 110 U/L (30-223); Est GFR (African American) 39.7 ml/min; Est GFR (Non-African American) 34.3 ml/min; Glucose 88 mg/dl (70-99(Fasting)); Potassium 3.7 mmol/L (3.5-5.1); Sodium 147 mmol/L (136-145)
[2024-02-10] MEDS: INSULIN ASPART PER UNIT CHARGE SC SCH (18:30)
[2024-02-10] MEDS: HEPARIN SOD 5,000 UNIT/0.5 ML VIAL SQ SCH (18:31)
[2024-02-10] MEDS: D5W AND 1/2NSS 1,000 ML IV SCH (18:32)
[2024-02-10] MEDS: ALBUMIN 25% 25 GM/100 ML VIAL IV ONE (19:46)
[2024-02-10] MEDS: PIPERACILLIN/TAZOBACTAM 4.5 GM in DEXTROSE 5% MINI-B 100 ML IV SCH (20:00)
[2024-02-10 20:09] LABS: Anion Gap 6 (3-11); BUN Creatinine Ratio 18.4 (10-20); Blood Urea Nitrogen 33 mg/dl (6-23); Calcium 8.8 mg/dl (8.6-10.3); Carbon Dioxide 30 mmol/L (21-32); Chloride 115 mmol/L (98-107); Est GFR (African American) 40.3 ml/min; Est GFR (Non-African American) 34.8 ml/min; Glucose 85 mg/dl (70-99(Fasting)); Potassium 3.8 mmol/L (3.5-5.1); Sodium 151 mmol/L (136-145)
--- NOTE | 2024-02-10 21:58 | Electrocardiogram Report ---
Test Reason : Blood Pressure : / mmHG Vent. Rate : 052 BPM Atrial Rate : 052 BPM P-R Int : 132 ms QRS Dur : 106 ms QT Int : 506 ms P-R-T Axes : 000 -71 023 degrees QTc Int : 471 ms Unusual P axis, possible ectopic atrial bradycardia Left axis deviation Poor R wave progression, consider anterior CA vs. lead placement vs. LVH Abnormal ECG When compared with ECG of 26-NOV-2023 01:45, Ectopic atrial rhythm has replaced Sinus rhythm Confirmed by Rui Gary ([id number]) on 02/10/2024 9:58:31 PM Referred By: REFERRED SELF Confirmed By:Rui Gary
[2024-02-11 06:21] LABS: Albumin Globulin Ratio 1.2 (0.9-2); Albumin Level 3.5 gm/dl (3.4-5.0); BUN Creatinine Ratio 16.6 (10-20); Bilirubin,Total 1.2 mg/dl (0.2-1.0); Calcium 9.1 mg/dl (8.6-10.3); Est GFR (African American) 39.7 ml/min; Est GFR (Non-African American) 34.3 ml/min; Potassium 3.5 mmol/L (3.5-5.1); Total Protein 6.5 gm/dl (6.0-8.3)
[2024-02-11 06:35] LABS: Basophils # (auto) 0.01 K/uL (0.00-0.20); Basophils % (auto) 0.2 %; Eosinophils # (auto) 0.06 K/uL (0.00-0.50); Eosinophils % (auto) 1.4 %; Hematocrit (blood only) 37.5 % (42.0-52.0); Hemoglobin 11.8 g/dl (14.0-18.0); Immature Granulocytes # (auto) 0.02 K/uL (0.01-0.20); Immature Granulocytes % (auto) 0.5 %; Lymphocytes # (auto) 0.75 K/uL (1.20-3.40); Lymphocytes % (auto) 17.4 %; Mean Corpuscular Hemoglobin 28.7 pg (25.0-34.0); Mean Corpuscular Hgb Conc 31.5 g/dL (32.0-36.0); Mean Corpuscular Volume 91.2 fL (80.0-100.0); Mean Platelet Volume 11.1 fL (9.4-12.4); Monocytes # (auto) 0.57 K/uL (0.11-0.59); Monocytes % (auto) 13.2 %; Neutrophils # (auto) 2.91 K/uL (1.40-6.50); Neutrophils % (auto) 67.3 %; Platelet Count 112 K/uL (130-400); RDW Coefficient of Variation 16.9 % (11.5-14.5); RDW Standard Deviation 56.5 fL (36.4-46.3); Red Blood Count 4.11 M/uL (4.70-6.10); White Blood Count 4.32 K/ul (4.8-10.8)
[2024-02-11 07:27] LABS: Estimated Average Glucose 114 mg/dl; Hemoglobin A1C 5.6 % (4.5-5.6)
[2024-02-11 08:17] LABS: A calco-baum cmplx NotReported Not Detected (NotDetected); Bact fragilis Not Reported Not Detected (NotDetected); Blood Culture Id Panel See PCR Comment (NotDetected); C auris Not Reported Not Detected (NotDetected); Calbicans Not Reported Not Detected (NotDetected); Candida glabrata Not Reported Not Detected (NotDetected); Candida krusei Not Reported Not Detected (NotDetected); Cneoformans/gatti Not Reported Not Detected (NotDetected); Cparapsilosis Not Reported Not Detected (NotDetected); E cloacae compx Not Reported Not Detected (NotDetected); Efaecalis Not Reported Not Detected (NotDetected); Efaecium Not Reported Not Detected (NotDetected); Enterobacterales Not Reported Not Detected (NotDetected); Escherichia coli Not Reported Not Detected (NotDetected); H influenzae Not Reported Not Detected (NotDetected); K aerogenes Not Reported Not Detected (NotDetected); Koxytoca Not Reported Not Detected (NotDetected); Kpneumoniae grp Not Reported Not Detected (NotDetected); Lmonocyt Not Reported Not Detected (NotDetected); N meningitidis Not Reported Not Detected (NotDetected); P aeruginosa Not Reported Not Detected (NotDetected); Proteus spp Not Reported Not Detected (NotDetected); Salmonella spp Not Reported Not Detected (NotDetected); Smarcescens Not Reported Not Detected (NotDetected); Staph lugdunensis Not Reported Not Detected (NotDetected); Staph spp. Not Reported DETECTED (NotDetected); Staphaureus Not Reported Not Detected (NotDetected); Staphepi Not Reported DETECTED (NotDetected); Stenmaltophilia Not Reported Not Detected (NotDetected); Strep agal(GrpB) Not Reported Not Detected (NotDetected); Strep pneum Not Reported Not Detected (NotDetected); Strep pyog (GrpA) Not Reported Not Detected (NotDetected); Strep spp Not Reported Not Detected (NotDetected); mecAC Resistant Gene Not Detected (NotDetected)
[2024-02-11 08:33] LABS: Staphylococcus epidermidis DETECTED (NotDetected); Staphylococcus spp. DETECTED (NotDetected)
--- NOTE | 2024-02-11 12:01 | Nephrology Consultation ---
Date of Consultation February 11, 2024 Assessment & Plan (1) SHWETA (acute kidney injury): Severe Volume depletion/Dehydration with high serum na. Continue iv fluid. (2) Acute hypernatremia: na is still high at 149. His BP was very low so actually got mostly NS last night. Now on d51/2 ns--continue same. he is totally obtunded and is actively dying. recommend Comfort care. continue iv fluid till then. Will sign off for now. Call us if patient is not comfort care History of Present Illness Reason for Consultation: SHWETA and Hypernatremia Attending Physician: Angela Domingo MD History of Present Illness 83/M with normal creat at baseline as of . He has HTN, HLD, atrial fibrillation not on anticoagulation due to history SAH, s/p watchman 09/2023 on DAPT, DM II, myasthenia gravis, depression, progressive dysphagia who presented to ED due to worsened mental status. patient is obtunded and no Family at bedside. Did speak with his RN. History obtained from inpatient and outpatient chart review. Recent hospitalizations: ED initially on 11/26/2022 due to worsening headaches, dysphagia, and episode of confusion. He experienced a progressive neurologic decline and transferred to [facility] on 11/29 for neurologic eval and LP. No clear etiology of patient's decline was revealed. Patient was evaluated by general surgery and not a candidate for PEG placement. Patient's course complicated by C diff and completed oral vanc for 14 days on 12/28. Patient then transferred to [facility] on 12/29 while placement is pending for group home care. He was hospitalized here until 01/09/2024 awaiting placement. His hospital course here was notable for SHWETA -mild peak creat 1.6 which resolved with IV fluids.He was transferred to [facility] on 01/09/24. patient is hypothermic, hypotensive and bradycardic. He had evidence of severe dehydration and hypernatremia with na of 153. SHWETA with creat 1.8. There is also concern for sepsis and UTI. patient is now DNR and DNI and likely will be made Comfort care soon. ROS--Cannot obtain. He is obtunded Physical Exam Physical Exam: Constitutional: Elderly, acutely ill, unresponsive Head: Normocephalic, Atraumatic, very dry mucous membranes Respiratory: Decreased respiratory effort, lungs clear to auscultation but poor inspiratory effort, no wheeze, rales, rhonchi noted. Cardiovascular: Bradycardic rate, regular rhythm, no murmur, no edema no JVD Abdomen: normal bowel sounds, soft, nontender, Musculoskeletal: Unable to assess due to unresponsiveness Skin: no rashes, warm and dry normal turgor Psychiatric: Unresponsive Allergies Allergy/AdvReac Type Severity Reaction Status Date / Time felodipine Allergy Intermediate hives Verified 02/10/24 12:18 flunisolide Allergy Unknown other Verified 02/10/24 12:18 gabapentin AdvReac Intermediate GI SYMPTOMS Verified 02/10/24 12:18 Thiazides AdvReac Intermediate CAUSED GOUT Verified 02/10/24 12:18 Home Medications Medication Instructions Recorded Confirmed Type pravastatin 40 mg tablet 40 mg PO QPM 12/23/21 02/10/24 History pyridostigmine bromide 60 mg 60 mg PO TID 12/23/21 02/10/24 History tablet (Mestinon) acetaminophen 325 mg capsule 975 mg PO TID PRN Fever Or Pain 01/21/22 02/10/24 History (Tylenol) clopidogrel 75 mg tablet 75 mg PO QAM 11/26/23 02/10/24 History aspirin 81 mg chewable tablet 81 mg PO QAM 12/29/23 02/10/24 History cyanocobalamin (vitamin B-12) 500 mcg PO QAM 12/29/23 02/10/24 History 1,000 mcg tablet (Vitamin B-12) levothyroxine 50 mcg tablet 50 mcg PO DAILYBB #30 tabs 01/08/24 02/10/24 Rx (Synthroid) olanzapine 5 mg disintegrating 5 mg PO HS #30 tabs 01/08/24 02/10/24 Rx tablet clotrimazole 1 % topical cream 1 applic topical BID PRN Unknown 02/10/24 02/10/24 History ergocalciferol (vitamin D2) 1,250 1,250 mcg PO WK 02/10/24 02/10/24 History mcg (50,000 unit) capsule (Vitamin D2) vancomycin 25 mg/mL oral solution 125 mg PO QID 02/10/24 02/10/24 History (Firvanq) Patient History Medical History C. difficile diarrhea Encephalopathy Carotid stenosis s/p carotid endarterectomy, side unknown Left ureteral stone Kidney lesion Atrial fibrillation [facility] [place] LAST VISIT 07/2022 MDD (major depressive disorder) DM II (diabetes mellitus, type II), controlled diet controlled, no longer on meds HLD (hyperlipidemia) HTN (hypertension) History of subarachnoid hemorrhage 12/2021 Myasthenia gravis IBS (irritable bowel syndrome) Surgical History History of carotid endarterectomy done about 5 yrs ago, [facility] [place] Hx of cystoscopy w/ stent 10/20/22 MAC. Post-op anesthesia progress note: "slightly hypotensive but is close to his preoperative baseline and has been receiving Vancomycin through his IV. His other vital signs are stable." History of vasectomy S/P cholecystectomy Family History Father Stroke Social History Smoking Status: Never smoker Tobacco Type: Cigarettes Second Hand Exposure: No; Do You Dip or Chew Tobacco: No; Hx Alcohol Use: No Hx Substance Use: No Preferred Language: Mongolian Communication Ability: Impaired Communication Ability Comment: Patient is minimally responsive Visual Impairment: No Limitations Behavioral Health Consultant Required: No Beliefs That Will Affect Care: None marital status: Current Living Situation: [facility] current occupational status: retired Other Information That Helps Us Care for You: No Feels Safe at Home: Yes caffeine: Yes Assistive Devices: Cane and Glasses Results & Data Vital Signs (Past 12 Hours) Vital Signs Temp Pulse Pulse Resp BP Pulse Ox O2 Del Method 02/11/24 11:00 36.2 C L 44 L 16 95/51 L 94 Room Air 02/11/24 10:53 36.1 C L 45 L 16 85/34 L 95 Room Air 02/11/24 07:04 36.3 C L 46 L 22 95/42 L 97 Room Air 02/11/24 03:00 35.6 C L 46 L 14 98/48 L 96 Room Air Laboratory Results reviewed Diagnostic Findings reviewed
[2024-02-11] MEDS ORDERED: Nursing to Pharmacy Communication SCH (12:30)
--- NOTE | 2024-02-11 13:45 | Hospitalist Progress Note ---
Date of Service February 11, 2024 Assessment & Plan (1) Metabolic encephalopathy: (2) Severe sepsis: (3) Acute UTI: (4) Hypothermia: (5) SHWETA (acute kidney injury): (6) Acute hypernatremia: Plan This is a 83 year old male with PMH HTN, HLD, atrial fibrillation not on anticoagulation due to history SAH, s/p watchman 09/2023 on DAPT, DM II, myasthenia gravis, depression, progressive dysphagia who presents to ED due to worsened mental status. Of significance pt was in ED initially on 11/26/2022 due to worsening headaches, dysphagia, and episode of confusion. He experienced a progressive neurologic decline and transferred to [facility] on 11/29 for neurologic eval and LP. No clear etiology of patient's decline was revealed. Patient was evaluated by general surgey and not a candidate for PEG placement. Patient's course complicated by C diff and completed oral vanc for 14 days on 12/28. Patient then transferred to [facility] on 12/29 while placement is pending for usp care. He was hospitalized here until 01/09/2024 awaiting placement. His hospital course here was notable for SHWETA which resolved with IV fluids. Since November pt has not regained his mentation. He remains confused but typically alert at baseline. Over last week has been, "out of it." He lost his 1 week ago. Discussion was had with 2 daughters and son-in-law at bedside given patient's current condition, assessment and prognosis. They wish to pursue DNR/DNI, but would like to pursue treatment for acute underlying conditions to determine if he is able to regain consciousness. This potentially will need to be readdressed in the next 24 hours if no improvement in patient's clinical status. Unresponsiveness Acute metabolic encephalopathy Severe sepsis -borderline shock with gram-positive bacteremia Acute UTI Hypothermia He received 2.5 L of IV fluid in ED Will continue on D5 water at 90 cc/h Continue with broad-spectrum antibiotic, IV Zosyn Blood culture is growing gram-positive cocci in clusters Urine culture is growing 3 different types of organisms Continue Kali dennis for rewarming Discussed with family at bedside, they would be agreeable to vasopressor support to maintain MAP if necessary, will follow closely Clinically not any better Will continue current management for now Will discuss with the family members for possible comfort care from tomorrow SHWETA Acute hypernatremia Suspect in setting of poor intake and underlying confused elderly male Family also reports currently being treated, again, for C. difficile with oral vancomycin Continue D5 water at 90 cc/h Consult nephrology-appreciate input and recommendation Has been getting D5 half NS at a rate of 80 mL/h Will monitor PRP Pre diabetes Hypoglycemic Last A1c was 6.0 Sliding scale insulin every 4 hours due to n.p.o. status and requiring D5 water Repeat A1c in a.m.-5.6 History of C. difficile Patient treated with C. difficile in December, currently on oral vancom[facility] unsure if ongoing diarrhea, will monitor stool when pt becomes more alert and able to take PO, would initiate oral vanco at least empirically if not having diarrhea Recurrent mechanical falls Ambulatory dysfunction Prior subdural hematoma traumatic fall 12/2021 with hematoma noted Fall precautions Hypothyroidism TSH WNL Resume levothyroxine 50mg when able Paroxysmal Atrial Fibrillation s/p watchman Chronic RBBB Symptomatic bradycardia [id number] 3, HASBLED 2 01/2022, newly diagnosed A Fib RVR, discharged with amiodarone; discontinued 11/2022, however reverted back to a fib and placed on amio/metoprolol/dilt s/p cardioversion Followed with Dr Mcneil 05/2023 during admission, during that time amiodarone continued, metoprolol Watchman placed 09/2023 Amiodarone d/c last hospitalization Placed on DAPT post watchman to continue for reportedly 6 months, then asa 83 indefinitely Continue ASA and plavix No device at this time due to it not changing trajectory of patient at this time HTN previous antihypertensive DC'd at last hospitalization Carotid stenosis s/p CEA HLD Continue pravastatin DVT pp: SQ Heparin : reynoso in take, strict intake and output DIET: NPO , Hold all [employer] medications until more alert DNR/DNI - discussion as above PCP: Dr[facility] Prognosis remains poor Will discuss with the family members for possible comfort care in a day or 2 Admission and Anticipated Discharge Date Admission Date: February 10, 2024 Subjective 02/11/2024 Patient was seen and examined in telemetry unit He remains semiconscious and not been following any commands except opening eyes a little and moving fingers minimally Not in any acute distress otherwise Review of Systems Review of Systems: Unobtainable due to cognitive status Physical Exam Physical Exam: Lying in bed without any acute distress Constitutional: + ill appearing and average body habitus Eyes: PERRL, conjunctivae normal, anicteric sclerae ENMT: external ear and nose normal, oropharynx normal Neck: trachea midline, no thyromegaly Respiratory: no respiratory distress Auscultation: + diminished lung sounds Cardiovascular: Rate/Rhythm: regular rate, regular rhythm and + bradycardic Heart Sounds: normal S1 and normal S2; no murmur Extremities: no edema Gastrointestinal (Abdomen): Inspection/Auscultation: normal bowel sounds; abdomen not distended Percussion/Palpation: abdomen soft Musculoskeletal: No acute arthritis involving any of the joint Neurologic: Semiconscious Lymphatic: no cervical or axillary lymphadenopathy Results & Data Results & Data Vital Signs (Past 12 Hours) Vital Signs Temp Pulse Pulse Resp BP Pulse Ox O2 Del Method 02/11/24 11:00 36.2 C L 44 L 16 95/51 L 94 Room Air 02/11/24 10:53 36.1 C L 45 L 16 85/34 L 95 Room Air 02/11/24 07:04 36.3 C L 46 L 22 95/42 L 97 Room Air 02/11/24 03:00 35.6 C L 46 L 14 98/48 L 96 Room Air Laboratory Results Short CBC 02/11/24 Range/Units 05:49 WBC 4.32 L (4.8-10.8) K/ul Hgb 11.8 L D (14.0-18.0) g/dl Hct 37.5 L (42.0-52.0) % Plt Count 112 L (130-400) K/uL BMP 02/10/24 02/10/24 02/11/24 15:35 19:37 05:49 Sodium 147 H 151 H 149 H Potassium 3.7 3.8 3.5 Chloride 111 H 115 H 112 H Carbon Dioxide 30 30 30 BUN 35 H 33 H 30 H Creatinine 1.81 H 1.79 H 1.81 H Glucose 88 85 106 H Calcium 8.7 8.8 9.1 Cardiac Enzymes 02/10/24 Range/Units 15:35 Total Creatine Kinase 110 (30-223) U/L Liver Function 02/11/24 Range/Units 05:49 Total Bilirubin 1.2 H (0.2-1.0) mg/dl AST 61 H (13-39) U/L ALT 29 (7-52) U/L Alkaline Phosphatase 131 H (34-104) U/L Albumin 3.5 (3.4-5.0) gm/dl Medications Administered Current Inpatient Medications Dextrose (Dextrose 50% 50 Ml Syringe) 25 - 50 ml IV UD PRN; Protocol PRN Reason: Hypoglycemia Protocol Stop: 03/11/24 15:33 Glucagon (Glucagon For Inj 1 Mg Vial) 1 mg SQ UD PRN; Protocol PRN Reason: Hypoglycemia Protocol Stop: 03/11/24 15:33 Glucose (Glucose 10 Tab/Tube) 4 - 8 tab PO UD PRN; Protocol PRN Reason: Hypoglycemia Treatment Stop: 03/11/24 15:33 Glucose (Glucose 40% Gel 15 Gm Tube) 15 - 30 gm PO UD PRN; Protocol PRN Reason: Hypoglycemia Protocol Stop: 03/11/24 15:33 Heparin Sodium (Porcine) (Heparin Sod 5,000 Unit/0.5 Ml Vial) 5,000 units SQ Q8 NAREN Stop: 03/11/24 15:59 Last Admin: 02/11/24 06:09 Dose: 5,000 units Piperacillin Sod/Tazobactam (Sod 4.5 gm/ Dextrose) 100 mls @ 25 mls/hr IV Q8H NAREN; Protocol Stop: 02/20/24 19:59 Last Admin: 02/11/24 12:16 Dose: 25 mls/hr Dextrose/Sodium Chloride (D5w And 1/2nss) 1,000 mls @ 80 mls/hr IV .[id number] NAREN Stop: 03/11/24 16:59 Last Admin: 02/11/24 09:07 Dose: 80 mls/hr Insulin Aspart (Insulin Aspart Per Unit Charge) 0 units SC Q6 NAREN Stop: 03/12/24 17:59 Miscellaneous (Carbohydrates For Hypoglycemia ) 15 - 30 gm PO UD PRN PRN Reason: Hypoglycemia Protocol Stop: 03/11/24 15:33 Ondansetron HCl (Ondansetron Inj 2 Mg/Ml 2 Ml Vial) 4 mg IV Q6H PRN PRN Reason: Nausea Stop: 03/11/24 15:33
[2024-02-11] MEDS: INSULIN ASPART PER UNIT CHARGE SC SCH (18:16)
[2024-02-12] MEDS ORDERED: ACETAMINOPHEN 325 MG TAB PO PRN (05:02)
[2024-02-12] MEDS: ACETAMINOPHEN 1,000 MG/100 ML VIAL IV STA (05:26)
[2024-02-12 06:11] LABS: Basophils # (auto) 0.01 K/uL (0.00-0.20); Basophils % (auto) 0.2 %; Eosinophils # (auto) 0.06 K/uL (0.00-0.50); Eosinophils % (auto) 1.3 %; Hematocrit (blood only) 37.6 % (42.0-52.0); Hemoglobin 11.8 g/dl (14.0-18.0); Immature Granulocytes # (auto) 0.02 K/uL (0.01-0.20); Immature Granulocytes % (auto) 0.4 %; Lymphocytes # (auto) 1.12 K/uL (1.20-3.40); Lymphocytes % (auto) 23.4 %; Mean Corpuscular Hemoglobin 28.6 pg (25.0-34.0); Mean Corpuscular Hgb Conc 31.4 g/dL (32.0-36.0); Mean Platelet Volume 10.5 fL (9.4-12.4); Monocytes # (auto) 0.73 K/uL (0.11-0.59); Monocytes % (auto) 15.2 %; Neutrophils # (auto) 2.85 K/uL (1.40-6.50); Neutrophils % (auto) 59.5 %; Platelet Count 96 K/uL (130-400); RDW Coefficient of Variation 17.1 % (11.5-14.5); RDW Standard Deviation 57.1 fL (36.4-46.3); Red Blood Count 4.13 M/uL (4.70-6.10); White Blood Count 4.79 K/ul (4.8-10.8)
[2024-02-12 06:38] LABS: Albumin Level 3.1 gm/dl (3.4-5.0); Bilirubin,Total 1.3 mg/dl (0.2-1.0); Calcium 8.8 mg/dl (8.6-10.3); Est GFR (African American) 41.4 ml/min; Est GFR (Non-African American) 35.7 ml/min; Globulin 3.1 gm/dl (2.5-4.0); Magnesium 1.9 mg/dl (1.7-2.4); Phosphorus 2.4 mg/dl (2.5-4.9); Potassium 3.4 mmol/L (3.5-5.1); Total Protein 6.2 gm/dl (6.0-8.3)
[2024-02-12] MEDS ORDERED: VANCOMYCIN HCL 1,000 MG in SODIUM CHLORIDE 0.9% 250 ML IV STA (16:35)
[2024-02-12] MEDS ORDERED: VANCOMYCIN CONSULT ACTIVE PRN (16:35)
--- NOTE | 2024-02-12 16:38 | Hospitalist Progress Note ---
Date of Service February 12, 2024 Assessment & Plan (1) Metabolic encephalopathy: (2) Severe sepsis: (3) Acute UTI: (4) Hypothermia: (5) SHWETA (acute kidney injury): (6) Acute hypernatremia: Plan This is a 83 year old male with PMH HTN, HLD, atrial fibrillation not on anticoagulation due to history SAH, s/p watchman 09/2023 on DAPT, DM II, myasthenia gravis, depression, progressive dysphagia who presents to ED due to worsened mental status. Of significance pt was in ED initially on 11/26/2022 due to worsening headaches, dysphagia, and episode of confusion. He experienced a progressive neurologic decline and transferred to [facility] on 11/29 for neurologic eval and LP. No clear etiology of patient's decline was revealed. Patient was evaluated by general surgey and not a candidate for PEG placement. Patient's course complicated by C diff and completed oral vanc for 14 days on 12/28. Patient then transferred to [facility] on 12/29 while placement is pending for snf care. He was hospitalized here until 01/09/2024 awaiting placement. His hospital course here was notable for SHWETA which resolved with IV fluids. Since November pt has not regained his mentation. He remains confused but typically alert at baseline. Over last week has been, "out of it." He lost his 1 week ago. Discussion was had with 2 daughters and son-in-law at bedside given patient's current condition, assessment and prognosis. They wish to pursue DNR/DNI, but would like to pursue treatment for acute underlying conditions to determine if he is able to regain consciousness. This potentially will need to be readdressed in the next 24 hours if no improvement in patient's clinical status. Unresponsiveness Acute metabolic encephalopathy Severe sepsis -borderline shock with gram-positive bacteremia Acute UTI Hypothermia He received 2.5 L of IV fluid in ED Will continue on D5 water at 90 cc/h Continue with broad-spectrum antibiotic, IV Zosyn Blood culture is growing gram-positive cocci in clusters Urine culture is growing 3 different types of organisms Continue Kali dennis for rewarming Discussed with family at bedside, they would be agreeable to vasopressor support to maintain MAP if necessary, will follow closely Clinically not any better Will continue current management for now Will discuss with the family members for possible comfort care from tomorrow Condition remains critical but stable Remains hemodynamically stable with blood pressure on the lower side and bradycardic and also has hypothermia Staph epidermidis and is covered very intravenous Zosyn and will continue that for the time being SHWETA Acute hypernatremia Suspect in setting of poor intake and underlying confused elderly male Family also reports currently being treated, again, for C. difficile with oral vancomycin Continue D5 water at 90 cc/h Consult nephrology-appreciate input and recommendation Has been getting D5 half NS at a rate of 80 mL/h Will monitor PRP-sodium level not yet improved remains at 148 Pre diabetes Hypoglycemic Last A1c was 6.0 Sliding scale insulin every 4 hours due to n.p.o. status and requiring D5 water Repeat A1c in a.m.-5.6 History of C. difficile Patient treated with C. difficile in December, currently on oral vancomycin per JAN from [facility] unsure if ongoing diarrhea, will monitor stool when pt becomes more alert and able to take PO, would initiate oral vanco at [facility] empirically if not having diarrhea Recurrent mechanical falls Ambulatory dysfunction Prior subdural hematoma traumatic fall 12/2021 with hematoma noted Fall precautions Hypothyroidism TSH WNL Resume levothyroxine 50mg when able Paroxysmal Atrial Fibrillation s/p watchman Chronic RBBB Symptomatic bradycardia [id number] 3, HASBLED 2 01/2022, newly diagnosed A Fib RVR, discharged with amiodarone; discontinued 11/2022, however reverted back to a fib and placed on amio/metoprolol/dilt s/p cardioversion Followed with Dr Mcneil 05/2023 during admission, during that time amiodarone continued, metoprolol Watchman placed 09/2023 Amiodarone d/c last hospitalization Placed on DAPT post watchman to continue for reportedly 6 months, then asa 83 indefinitely Continue ASA and plavix No device at this time due to it not changing trajectory of patient at this time HTN previous antihypertensive DC'd at last hospitalization Carotid stenosis s/p CEA HLD Continue pravastatin DVT pp: SQ Heparin : reynoso in take, strict intake and output DIET: NPO , Hold all [employer] medications until more alert DNR/DNI - discussion as above PCP: Dr. Jacques at [facility] Prognosis remains poor Will discuss with the family members for possible comfort care in a day or 2 Admission and Anticipated Discharge Date Admission Date: February 10, 2024 Subjective 02/11/2024 Patient was seen and examined in telemetry unit He remains semiconscious and not been following any commands except opening eyes a little and moving fingers minimally Not in any acute distress otherwise 02/12/2024 The patient was seen and examined in telemetry unit He remains unconscious Hemodynamically stable with blood pressure on the lower side and hypothermic Review of Systems Review of Systems: Unobtainable due to cognitive status Physical Exam Physical Exam: Lying in bed without any acute distress Constitutional: + ill appearing and average body habitus Eyes: PERRL, conjunctivae normal, anicteric sclerae ENMT: external ear and nose normal, oropharynx normal Neck: trachea midline, no thyromegaly Respiratory: no respiratory distress Auscultation: + diminished lung sounds Cardiovascular: Rate/Rhythm: regular rate, regular rhythm and + bradycardic Heart Sounds: normal S1 and normal S2; no murmur Extremities: no edema Gastrointestinal (Abdomen): Inspection/Auscultation: normal bowel sounds; abdomen not distended Percussion/Palpation: abdomen soft Neurologic: Remains unconscious Lymphatic: no cervical or axillary lymphadenopathy Results & Data Results & Data Vital Signs (Past 12 Hours) Vital Signs Temp Pulse Resp BP Pulse Ox O2 Del Method 02/12/24 14:57 34.5 C L 41 L 15 91/48 L 100 Room Air 02/12/24 11:47 34.4 C L 52 L 23 123/60 97 Room Air 02/12/24 07:33 35.4 C L 42 L 19 90/50 L 100 Room Air Laboratory Results Short CBC 02/12/24 Range/Units 05:50 WBC 4.79 L (4.8-10.8) K/ul Hgb 11.8 L (14.0-18.0) g/dl Hct 37.6 L (42.0-52.0) % Plt Count 96 L (130-400) K/uL BMP 02/12/24 05:50 Sodium 148 H Potassium 3.4 L Chloride 113 H Carbon Dioxide 28 BUN 21 Creatinine 1.75 H Glucose 99 Calcium 8.8 Liver Function 02/12/24 Range/Units 05:50 Total Bilirubin 1.3 H (0.2-1.0) mg/dl AST 56 H (13-39) U/L ALT 23 (7-52) U/L Alkaline Phosphatase 112 H (34-104) U/L Albumin 3.1 L (3.4-5.0) gm/dl Medications Administered Current Inpatient Medications Acetaminophen (Acetaminophen 325 Mg Tab) 650 mg PO QID PRN PRN Reason: pain/fever Stop: 03/13/24 05:01 Dextrose (Dextrose 50% 50 Ml Syringe) 25 - 50 ml IV UD PRN; Protocol PRN Reason: Hypoglycemia Protocol Stop: 03/11/24 15:33 Glucagon (Glucagon For Inj 1 Mg Vial) 1 mg SQ UD PRN; Protocol PRN Reason: Hypoglycemia Protocol Stop: 03/11/24 15:33 Glucose (Glucose 10 Tab/Tube) 4 - 8 tab PO UD PRN; Protocol PRN Reason: Hypoglycemia Treatment Stop: 03/11/24 15:33 Glucose (Glucose 40% Gel 15 Gm Tube) 15 - 30 gm PO UD PRN; Protocol PRN Reason: Hypoglycemia Protocol Stop: 03/11/24 15:33 Heparin Sodium (Porcine) (Heparin Sod 5,000 Unit/0.5 Ml Vial) 5,000 units SQ Q8 NAREN Stop: 03/11/24 15:59 Last Admin: 02/12/24 13:43 Dose: 5,000 units Piperacillin Sod/Tazobactam (Sod 4.5 gm/ Dextrose) 100 mls @ 25 mls/hr IV Q8H [facility]; Protocol Stop: 02/20/24 19:59 Last Admin: 02/12/24 13:42 Dose: 25 mls/hr Dextrose/Sodium Chloride (D5w And 1/2nss) 1,000 mls @ 80 mls/hr IV .[id number] [facility] Stop: 03/11/24 16:59 Last Admin: 02/12/24 11:01 Dose: 80 mls/hr Insulin Aspart (Insulin Aspart Per Unit Charge) 0 units SC Q6 NAREN Stop: 03/12/24 17:59 Last Admin: 02/12/24 12:19 Dose: Not Given Miscellaneous (Carbohydrates For Hypoglycemia ) 15 - 30 gm PO UD PRN PRN Reason: Hypoglycemia Protocol Stop: 03/11/24 15:33 Ondansetron HCl (Ondansetron Inj 2 Mg/Ml 2 Ml Vial) 4 mg IV Q6H PRN PRN Reason: Nausea Stop: 03/11/24 15:33
[2024-02-13 08:58] LABS: Basophils # (auto) 0.01 K/uL (0.00-0.20); Basophils % (auto) 0.3 %; Eosinophils # (auto) 0.06 K/uL (0.00-0.50); Eosinophils % (auto) 1.7 %; Hematocrit (blood only) 36.3 % (42.0-52.0); Hemoglobin 11.3 g/dl (14.0-18.0); Immature Granulocytes # (auto) 0.02 K/uL (0.01-0.20); Immature Granulocytes % (auto) 0.6 %; Lymphocytes # (auto) 0.68 K/uL (1.20-3.40); Lymphocytes % (auto) 19.3 %; Mean Corpuscular Hemoglobin 28.5 pg (25.0-34.0); Mean Corpuscular Hgb Conc 31.1 g/dL (32.0-36.0); Mean Corpuscular Volume 91.7 fL (80.0-100.0); Mean Platelet Volume 10.9 fL (9.4-12.4); Monocytes # (auto) 0.38 K/uL (0.11-0.59); Monocytes % (auto) 10.8 %; Neutrophils # (auto) 2.37 K/uL (1.40-6.50); Neutrophils % (auto) 67.3 %; Platelet Count 97 K/uL (130-400); RDW Coefficient of Variation 16.8 % (11.5-14.5); RDW Standard Deviation 56.4 fL (36.4-46.3); Red Blood Count 3.96 M/uL (4.70-6.10); White Blood Count 3.52 K/ul (4.8-10.8)
[2024-02-13 09:12] LABS: BUN Creatinine Ratio 10.7 (10-20); Calcium 8.6 mg/dl (8.6-10.3); Est GFR (African American) 54.2 ml/min; Est GFR (Non-African American) 46.8 ml/min; Magnesium 1.7 mg/dl (1.7-2.4); Potassium 3.2 mmol/L (3.5-5.1)
[2024-02-13] MEDS ORDERED: ACETAMINOPHEN 1,000 MG/100 ML VIAL IV PRN (11:54)
--- NOTE | 2024-02-13 13:41 | Hospitalist Progress Note ---
Date of Service February 13, 2024 Assessment & Plan (1) Comfort measures only status: (2) Metabolic encephalopathy: (3) Severe sepsis: (4) Acute UTI: (5) Hypothermia: (6) SHWETA (acute kidney injury): (7) Acute hypernatremia: Plan This is a 83 year old male with PMH HTN, HLD, atrial fibrillation not on anticoagulation due to history SAH, s/p watchman 09/2023 on DAPT, DM II, myasthenia gravis, depression, progressive dysphagia who presents to ED due to worsened mental status. Of significance pt was in ED initially on 11/26/2022 due to worsening headaches, dysphagia, and episode of confusion. He experienced a progressive neurologic decline and transferred to [facility] [place] on 11/29 for neurologic eval and LP. No clear etiology of patient's decline was revealed. Patient was evaluated by general surgey and not a candidate for PEG placement. Patient's course complicated by C diff and completed oral vanc for 14 days on 12/28. Patient then transferred to [facility] on 12/29 while placement is pending for half-way care. He was hospitalized here until 01/09/2024 awaiting placement. His hospital course here was notable for SHWETA which resolved with IV fluids. Since November pt has not regained his mentation. He remains confused but typically alert at baseline. Over last week has been, "out of it." He lost his 1 week ago. Unresponsiveness Acute metabolic encephalopathy Severe sepsis -borderline shock with gram-positive bacteremia Acute UTI Hypothermia Acute Hypernatremia Hypoglycemia Cdiff PAF hx of SDH Had lengthy discussion with daughter Maddie over the phone regarding pts current condition, assessment and prognosis. We had talked on admission regarding trailing IVF and antibiotics to determine if patient was going to elicit response vs. end of life There has been no real meaningful turn around as pt remains obtunded He is also showing signs of the active dying process She just lost her mother 1 week ago. She is familiar with hospice/palliative care. She is agreeable that at this point in time it is time to transition to comfort care measures only as Mr. Huizar currently has no meaningful quality of life at this point will d/c media monitor, fluids, antibiotics, lab draws Comfort measures only with PRN IV morphine, zofran, tylenol, ativan, glycopyrrolate Bereavement tray and pastoral care offered Anticipate Mr. Huizar to pass in house and suspect within the next few days Dispo: Comfort measures only at this time. Discussed with Maddie victoria and she is in agreement. Will transition pt to med/surg and expect he will pass in next few days in house DNR/DNI Pt was seen and examined in collaboration with Dr. Domingo, please see addendum A total of 65 minutes was spent coordinating, documenting, and providing care for this patient excluding time spent in the performance of separately billed services. This included personally viewing all current laboratories and imaging studies, medication reconciliation, outpatient chart review, and discussion with specialists. Admission and Anticipated Discharge Date Admission Date: February 10, 2024 Supervising Physician Co-Signing Physician Notes Attending addendum: The patient was seen and examined in telemetry unit He remains unresponsive Condition remains critical On examination Lying in bed without any acute distress Blood pressure on the lower side with bradycardia and hypothermia Chest-decreased breath sound both sides Heart-S1-S2, regular Abdomen-soft and bowel sound present Extremities-no edema ANGLE BENDER-remains unconscious His labs, medications and imaging studies reviewed Remains unresponsive with acute metabolic and cephalopathy secondary to severe sepsis Acute hyponatremia, PAF history of SDH and also myasthenia gravis Condition did not changed since admission and the case was discussed with the family members in detail Has had aggressive treatment for the last 2 days without any improvement Detailed discussion with the family members was made today and the patient is now comfort care only Agree with assessment and plan as outlined above by Vee Domingo Subjective Pt was seen and examined in room 204. F/U AMS, Hypernatremia. ROS unobtainable. Pt remains comatose. Tom hugger in place. Discussed with nursing who feels comfort measures appropriate. Pt was re evaluated in afternoon ~ 1400 with Daughter Maddie and granddaughter at bedside. All questions were answered. Review of Systems Review of Systems: Unobtainable due to cognitive status and Unobtainable due to reduced consciousness Physical Exam Physical Exam: Gen: Chronically ill appearing, obtunded and unable to arouse, NAD +bairhugger in place HEENT: Normocephalic, bitemporal wasting, atraumatic, conjunctivae moist, sclerae anicteric, mucous membranes dry Lung: Poor inspiratory effort, Clear to Auscultation bilaterally, no wheezes/rales/rhonchi Heart: Regular rate, regular rhythm, no murmurs, rubs, or gallops Abdomen: Soft, NT, ND +BS x 4 Extremities: No edema Skin: Warm 2/2 tom hugger, no rash, negative turgor. Results & Data Results & Data Vital Signs (Past 12 Hours) Vital Signs Temp Pulse Pulse Resp BP Pulse Ox O2 Del Method 02/13/24 08:00 47 L 02/13/24 08:00 Room Air 02/13/24 07:00 37.2 C 54 L 16 95/54 L 96 Room Air 02/13/24 02:14 34.7 C L 63 17 115/85 97 Room Air Laboratory Results Short CBC 02/13/24 Range/Units 08:38 WBC 3.52 L (4.8-10.8) K/ul Hgb 11.3 L (14.0-18.0) g/dl Hct 36.3 L (42.0-52.0) % Plt Count 97 L (130-400) K/uL BMP 02/13/24 08:38 Sodium 146 H Potassium 3.2 L Chloride 113 H Carbon Dioxide 28 BUN 15 Creatinine 1.40 D Glucose 91 Calcium 8.6 Medications Administered Current Inpatient Medications Glycopyrrolate (Glycopyrrolate 0.2 Mg/Ml Vial) 0.2 mg IV Q4H PRN PRN Reason: Secretions or Pulm Congestion Stop: 03/14/24 11:50 Lorazepam 0.5 mg/ Syringe 0.5 mls @ 2 mls/min IV Q4H PRN; Protocol PRN Reason: Anxiety/Agitation Stop: 03/14/24 11:50 Acetaminophen (Ofirmev) 1,000 mg in 100 mls @ 400 mls/hr IV Q8H PRN PRN Reason: Pain Stop: 02/16/24 11:53 Morphine Sulfate (Morphine Sulfate 2 Mg/Ml Carp) 2 mg IV Q4H PRN PRN Reason: Pain or Respiratory Distress Stop: 02/27/24 11:50 Ondansetron HCl (Ondansetron Inj 2 Mg/Ml 2 Ml Vial) 4 mg IV Q6H PRN PRN Reason: Nausea Stop: 03/11/24 15:33
[2024-02-13] MEDS: GLYCOPYRROLATE 0.2 MG/ML VIAL IV PRN (16:25)
--- NOTE | 2024-02-14 10:48 | Hospitalist Progress Note ---
Date of Service February 14, 2024 Assessment & Plan (1) Comfort measures only status: (2) Metabolic encephalopathy: (3) Severe sepsis: (4) Acute UTI: (5) Hypothermia: (6) SHWETA (acute kidney injury): (7) Acute hypernatremia: Plan This is a 83 year old male with PMH HTN, HLD, atrial fibrillation not on anticoagulation due to history SAH, s/p watchman 09/2023 on DAPT, DM II, myasthenia gravis, depression, progressive dysphagia who presents to ED due to worsened mental status. Of significance pt was in ED initially on 11/26/2022 due to worsening headaches, dysphagia, and episode of confusion. He experienced a progressive neurologic decline and transferred to [facility] on 11/29 for neurologic eval and LP. No clear etiology of patient's decline was revealed. Patient was evaluated by general surgey and not a candidate for PEG placement. Patient's course complicated by C diff and completed oral vanc for 14 days on 12/28. Patient then transferred to [facility] on 12/29 while placement is pending for [facility] care. He was hospitalized here until 01/09/2024 awaiting placement. His hospital course here was notable for SHWETA which resolved with IV fluids. Since November pt has not regained his mentation. He remains confused but typically alert at baseline. Over last week has been, "out of it." He lost his 1 week ago. Unresponsiveness Acute metabolic encephalopathy Severe sepsis -borderline shock with gram-positive bacteremia Acute UTI Hypothermia Acute Hypernatremia Hypoglycemia Cdiff PAF hx of SDH Had lengthy discussion with daughter Maddie over the phone regarding pts current condition, assessment and prognosis on 02/13/24. We had talked on admission regarding trailing IVF and antibiotics to determine if patient was going to elicit response vs. end of life There has been no real meaningful turn around as pt remains obtunded He is also showing signs of the active dying process She just lost her mother 1 week ago. She is familiar with hospice/palliative care. She is agreeable that at this point in time it is time to transition to comfort care measures only as Mr. Huizar currently has no meaningful quality of life at this point will d/c property assessment monitor, fluids, antibiotics, lab draws Comfort measures only with PRN IV morphine, zofran, tylenol, ativan, glycopyrrolate Bereavement tray and pastoral care offered Anticipate Mr. Huizar to pass in house and suspect within the next few days Dispo: Comfort measures only at this time. Expect pt to pass in house, not stable to transfer out DNR/DNI Pt was seen and examined in collaboration with Dr. Domingo, please see addendum A total of 25 minutes was spent coordinating, documenting, and providing care for this patient excluding time spent in the performance of separately billed services. This included personally viewing all current laboratories and imaging studies, medication reconciliation, outpatient chart review, and discussion with specialists. Admission and Anticipated Discharge Date Admission Date: February 10, 2024 Supervising Physician Co-Signing Physician Notes Attending addendum: The patient was seen and examined in medical floor. He remains critical but stable No apparent distress at rest Remains unconscious and comfortable on current medications Will continue with the current management. Agree with assessment and plan as outlined above by Vee Domingo Subjective Pt was seen and examined in room 317. F/U MEDICAL BILLING SPECIALIST. ROS unobtainable. Pt remains unarousable and sleeping. Appears comfortable. ADMINISTRATIVE SUPERVISOR at bedside who denies any acute concerns regarding patient. Review of Systems Review of Systems: Unobtainable due to cognitive status and Unobtainable due to reduced consciousness Physical Exam Physical Exam: Gen: Chronically ill appearing, obtunded and unable to arouse, NAD sleeping HEENT: Normocephalic, bitemporal wasting, atraumatic, conjunctivae moist, sclerae anicteric, mucous membranes dry Lung: Poor inspiratory effort, Clear to Auscultation bilaterally, no wheezes/rales/rhonchi Heart: Regular rate, regular rhythm, no murmurs, rubs, or gallops Abdomen: Soft, NT, ND +BS x 4 Extremities: No edema Skin:cool, no rash, negative turgor. Results & Data Results & Data Vital Signs (Past 12 Hours) Vital Signs O2 Del Method 02/14/24 07:55 Room Air 02/14/24 02:00 Room Air Medications Administered Current Inpatient Medications Glycopyrrolate (Glycopyrrolate 0.2 Mg/Ml Vial) 0.2 mg IV Q4H PRN PRN Reason: Secretions or Pulm Congestion Stop: 03/14/24 11:50 Last Admin: 04/09/24 16:25 Dose: 0.2 mg Lorazepam 0.5 mg/ Syringe 0.5 mls @ 2 mls/min IV Q4H PRN; Protocol PRN Reason: Anxiety/Agitation Stop: 03/14/24 11:50 Acetaminophen (Ofirmev) 1,000 mg in 100 mls @ 400 mls/hr IV Q8H PRN PRN Reason: Pain Stop: 02/16/24 11:53 Morphine Sulfate (Morphine Sulfate 2 Mg/Ml Carp) 2 mg IV Q4H PRN PRN Reason: Pain or Respiratory Distress Stop: 02/27/24 11:50 Ondansetron HCl (Ondansetron Inj 2 Mg/Ml 2 Ml Vial) 4 mg IV Q6H PRN PRN Reason: Nausea Stop: 03/11/24 15:33
[2024-02-15] MEDS: LORazepam 0.5 MG in SYRINGE 0.25 ML IV PRN (02:08)
[2024-02-15] MEDS: MoRPHine SULFATE 2 MG/ML CARP IV PRN (02:14)
--- NOTE | 2024-02-15 16:05 | Hospitalist Progress Note ---
Date of Service February 15, 2024 Assessment & Plan (1) Comfort measures only status: (2) Metabolic encephalopathy: (3) Severe sepsis: (4) Acute UTI: (5) Hypothermia: (6) SHWETA (acute kidney injury): (7) Acute hypernatremia: Plan This is a 83 year old male with PMH HTN, HLD, atrial fibrillation not on anticoagulation due to history SAH, s/p watchman 09/2023 on DAPT, DM II, myasthenia gravis, depression, progressive dysphagia who presents to ED due to worsened mental status. Of significance pt was in ED initially on 11/26/2022 due to worsening headaches, dysphagia, and episode of confusion. He experienced a progressive neurologic decline and transferred to [facility] [place]/29 for neurologic eval and LP. No clear etiology of patient's decline was revealed. Patient was evaluated by general surgey and not a candidate for PEG placement. Patient's course complicated by C diff and completed oral vanc for 14 days on 12/28. Patient then transferred to [facility] on 12/29 while placement is pending for detention care. He was hospitalized here until 01/09/2024 awaiting placement. His hospital course here was notable for SHWETA which resolved with IV fluids. Since November pt has not regained his mentation. He remains confused but typically alert at baseline. Over last week has been, "out of it." He lost his 1 week ago. Unresponsiveness Acute metabolic encephalopathy Severe sepsis -borderline shock with gram-positive bacteremia Acute UTI Hypothermia Acute Hypernatremia Hypoglycemia Cdiff PAF hx of SDH Had lengthy discussion with daughter Maddie over the phone regarding pts current condition, assessment and prognosis on 02/13/24. We had talked on admission regarding trailing IVF and antibiotics to determine if patient was going to elicit response vs. end of life There has been no real meaningful turn around as pt remains obtunded He is also showing signs of the active dying process She just lost her mother 1 week ago. She is familiar with hospice/palliative care. She is agreeable that at this point in time it is time to transition to comfort care measures only as Mr. Huizar currently has no meaningful quality of life at this point will d/c case monitor, fluids, antibiotics, lab draws Comfort measures only with PRN IV morphine, zofran, tylenol, ativan, glycopyrrolate Bereavement tray and pastoral care offered Anticipate Mr. Huizar to pass in house and suspect within the next few days Remains stable but critical No distress at rest Has been on comfort care medications Dispo: Comfort measures only at this time. Expect pt to pass in house, not stable to transfer out DNR/DNI Admission and Anticipated Discharge Date Admission Date: February 10, 2024 Subjective 02/11/2024 Patient was seen and examined in telemetry unit He remains semiconscious and not been following any commands except opening eyes a little and moving fingers minimally Not in any acute distress otherwise 02/12/2024 The patient was seen and examined in telemetry unit He remains unconscious Hemodynamically stable with blood pressure on the lower side and hypothermic 02/15/2024 Patient was seen and examined in medical floor Remains on comfort care and stable Occasional movement of the extremities with commands-no communication Review of Systems Review of Systems: Unobtainable due to cognitive status Physical Exam Physical Exam: Lying in bed without any acute distress Constitutional: + ill appearing and average body habitus Eyes: PERRL, conjunctivae normal, anicteric sclerae ENMT: external ear and nose normal, oropharynx normal Neck: trachea midline, no thyromegaly Respiratory: no respiratory distress Auscultation: + diminished lung sounds Cardiovascular: Rate/Rhythm: regular rate, regular rhythm and + bradycardic Heart Sounds: normal S1 and normal S2; no murmur Extremities: no edema Gastrointestinal (Abdomen): Inspection/Auscultation: normal bowel sounds; abdomen not distended Percussion/Palpation: abdomen soft Neurologic: Remains semiresponsive Lymphatic: no cervical or axillary lymphadenopathy Results & Data Results & Data Vital Signs (Past 12 Hours) Vital Signs O2 Del Method 02/15/24 07:53 Room Air Medications Administered Current Inpatient Medications Glycopyrrolate (Glycopyrrolate 0.2 Mg/Ml Vial) 0.2 mg IV Q4H PRN PRN Reason: Secretions or Pulm Congestion Stop: 03/14/24 11:50 Last Admin: 02/13/24 16:25 Dose: 0.2 mg Lorazepam 0.5 mg/ Syringe 0.5 mls @ 2 mls/min IV Q4H PRN; Protocol PRN Reason: Anxiety/Agitation Stop: 03/14/24 11:50 Last Admin: 02/15/24 02:08 Dose: 2 mls/min Acetaminophen (Ofirmev) 1,000 mg in 100 mls @ 400 mls/hr IV Q8H PRN PRN Reason: Pain Stop: 02/16/24 11:53 Morphine Sulfate (Morphine Sulfate 2 Mg/Ml Carp) 2 mg IV Q4H PRN PRN Reason: Pain or Respiratory Distress Stop: 02/27/24 11:50 Last Admin: 02/15/24 10:02 Dose: 2 mg Ondansetron HCl (Ondansetron Inj 2 Mg/Ml 2 Ml Vial) 4 mg IV Q6H PRN PRN Reason: Nausea Stop: 03/11/24 15:33
--- NOTE | 2024-02-16 16:44 | Hospitalist Progress Note ---
Date of Service February 16, 2024 Assessment & Plan (1) Comfort measures only status: (2) Metabolic encephalopathy: (3) Severe sepsis: (4) Acute UTI: (5) Hypothermia: (6) SHWETA (acute kidney injury): (7) Acute hypernatremia: Plan This is a 83 year old male with PMH HTN, HLD, atrial fibrillation not on anticoagulation due to history SAH, s/p watchman 09/2023 on DAPT, DM II, myasthenia gravis, depression, progressive dysphagia who presents to ED due to worsened mental status. Of significance pt was in ED initially on 11/26/2022 due to worsening headaches, dysphagia, and episode of confusion. He experienced a progressive neurologic decline and transferred to [facility] on 11/29 for neurologic eval and LP. No clear etiology of patient's decline was revealed. Patient was evaluated by general surgey and not a candidate for PEG placement. Patient's course complicated by C diff and completed oral vanc for 14 days on 12/28. Patient then transferred to [facility] on 12/29 while placement is pending for intermediate care. He was hospitalized here until 01/09/2024 awaiting placement. His hospital course here was notable for SHWETA which resolved with IV fluids. Since November pt has not regained his mentation. He remains confused but typically alert at baseline. Over last week has been, "out of it." He lost his 1 week ago. Unresponsiveness Acute metabolic encephalopathy Severe sepsis -borderline shock with gram-positive bacteremia Acute UTI Hypothermia Acute Hypernatremia Hypoglycemia Cdiff PAF hx of SDH Had lengthy discussion with daughter Maddie over the phone regarding pts current condition, assessment and prognosis on 02/13/24. We had talked on admission regarding trailing IVF and antibiotics to determine if patient was going to elicit response vs. end of life There has been no real meaningful turn around as pt remains obtunded He is also showing signs of the active dying process She just lost her mother 1 week ago. She is familiar with hospice/palliative care. She is agreeable that at this point in time it is time to transition to comfort care measures only as Mr. Huizar currently has no meaningful quality of life at this point will d/c air sampling and monitoring, fluids, antibiotics, lab draws Comfort measures only with PRN IV morphine, zofran, tylenol, ativan, glycopyrrolate Bereavement tray and pastoral care offered Anticipate Mr. Huizar to pass in house and suspect within the next few days Remains stable but critical No distress at rest Has been on comfort care medications Remains comfort without any suffering's Discussed with the family members-happy with the care Dispo: Comfort measures only at this time. Expect pt to pass in house, not stable to transfer out DNR/DNI Admission and Anticipated Discharge Date Admission Date: February 10, 2024 Subjective 02/11/2024 Patient was seen and examined in telemetry unit He remains semiconscious and not been following any commands except opening eyes a little and moving fingers minimally Not in any acute distress otherwise 02/12/2024 The patient was seen and examined in telemetry unit He remains unconscious Hemodynamically stable with blood pressure on the lower side and hypothermic 02/15/2024 Patient was seen and examined in medical floor Remains on comfort care and stable Occasional movement of the extremities with commands-no communication 02/16/2024 Patient was seen and examined in medical floor in presence of the family members Remains critical and stable No apparent distress at rest Physical Exam Physical Exam: Lying in bed without any acute distress Constitutional: + ill appearing and average body habitus Eyes: PERRL, conjunctivae normal, anicteric sclerae ENMT: external ear and nose normal, oropharynx normal Neck: trachea midline, no thyromegaly Respiratory: no respiratory distress Auscultation: + diminished lung sounds Cardiovascular: Rate/Rhythm: regular rate, regular rhythm and + bradycardic Heart Sounds: normal S1 and normal S2; no murmur Extremities: no edema Gastrointestinal (Abdomen): Inspection/Auscultation: normal bowel sounds; abdomen not distended Percussion/Palpation: abdomen soft Lymphatic: no cervical or axillary lymphadenopathy Results & Data Results & Data Vital Signs (Past 12 Hours) Vital Signs O2 Del Method 02/16/24 07:38 Room Air Medications Administered Current Inpatient Medications Glycopyrrolate (Glycopyrrolate 0.2 Mg/Ml Vial) 0.2 mg IV Q4H PRN PRN Reason: Secretions or Pulm Congestion Stop: 03/14/24 11:50 Last Admin: 02/13/24 16:25 Dose: 0.2 mg Lorazepam 0.5 mg/ Syringe 0.5 mls @ 2 mls/min IV Q4H PRN; Protocol PRN Reason: Anxiety/Agitation Stop: 03/14/24 11:50 Last Admin: 02/15/24 19:19 Dose: 2 mls/min Morphine Sulfate (Morphine Sulfate 2 Mg/Ml Carp) 2 mg IV Q4H PRN PRN Reason: Pain or Respiratory Distress Stop: 02/27/24 11:50 Last Admin: 02/16/24 15:14 Dose: 2 mg Ondansetron HCl (Ondansetron Inj 2 Mg/Ml 2 Ml Vial) 4 mg IV Q6H PRN PRN Reason: Nausea Stop: 03/11/24 15:33
--- NOTE | 2024-02-17 15:20 | Hospitalist Progress Note ---
Date of Service February 17, 2024 Assessment & Plan (1) Comfort measures only status: (2) Metabolic encephalopathy: (3) Severe sepsis: (4) Acute UTI: (5) Hypothermia: (6) SHWETA (acute kidney injury): (7) Acute hypernatremia: Plan This is a 83 year old male with PMH HTN, HLD, atrial fibrillation not on anticoagulation due to history SAH, s/p watchman 09/2023 on DAPT, DM II, myasthenia gravis, depression, progressive dysphagia who presents to ED due to worsened mental status. Of significance pt was in ED initially on 11/26/2022 due to worsening headaches, dysphagia, and episode of confusion. He experienced a progressive neurologic decline and transferred to [facility] on 11/29 for neurologic eval and LP. No clear etiology of patient's decline was revealed. Patient was evaluated by general surgey and not a candidate for PEG placement. Patient's course complicated by C diff and completed oral vanc for 14 days on 12/28. Patient then transferred to [facility] on 12/29 while placement is pending for fdc care. He was hospitalized here until 01/09/2024 awaiting placement. His hospital course here was notable for SHWETA which resolved with IV fluids. Since November pt has not regained his mentation. He remains confused but typically alert at baseline. Over last week has been, "out of it." He lost his 1 week ago. Unresponsiveness Acute metabolic encephalopathy Severe sepsis -borderline shock with gram-positive bacteremia Acute UTI Hypothermia Acute Hypernatremia Hypoglycemia Cdiff PAF hx of SDH Had lengthy discussion with daughter Maddie over the phone regarding pts current condition, assessment and prognosis on 02/13/24. We had talked on admission regarding trailing IVF and antibiotics to determine if patient was going to elicit response vs. end of life There has been no real meaningful turn around as pt remains obtunded He is also showing signs of the active dying process She just lost her mother 1 week ago. She is familiar with hospice/palliative care. She is agreeable that at this point in time it is time to transition to comfort care measures only as Mr. Huizar currently has no meaningful quality of life at this point will d/c monitoring tech, fluids, antibiotics, lab draws Comfort measures only with PRN IV morphine, zofran, tylenol, ativan, glycopyrrolate Bereavement tray and pastoral care offered Anticipate Mr. Huizar to pass in house and suspect within the next few days Remains stable but critical No distress at rest Has been on comfort care medications Remains comfort without any suffering's Discussed with the family members-happy with the care Remains critical without any acute distress-will continue current comfort measures Dispo: Comfort measures only at this time. Expect pt to pass in house, not stable to transfer out DNR/DNI Admission and Anticipated Discharge Date Admission Date: February 10, 2024 Subjective 02/11/2024 Patient was seen and examined in telemetry unit He remains semiconscious and not been following any commands except opening eyes a little and moving fingers minimally Not in any acute distress otherwise 02/12/2024 The patient was seen and examined in telemetry unit He remains unconscious Hemodynamically stable with blood pressure on the lower side and hypothermic 02/15/2024 Patient was seen and examined in medical floor Remains on comfort care and stable Occasional movement of the extremities with commands-no communication 02/16/2024 Patient was seen and examined in medical floor in presence of the family members Remains critical and stable No apparent distress at rest 02/17/2024 The patient was seen and examined in medical floor He has been stable Not in any distress Physical Exam Physical Exam: Lying in bed without any acute distress Constitutional: + ill appearing and average body habitus Eyes: PERRL, conjunctivae normal, anicteric sclerae ENMT: external ear and nose normal, oropharynx normal Neck: trachea midline, no thyromegaly Respiratory: no respiratory distress Auscultation: + diminished lung sounds Cardiovascular: Rate/Rhythm: regular rate, regular rhythm and + bradycardic Heart Sounds: normal S1 and normal S2; no murmur Extremities: no edema Gastrointestinal (Abdomen): Inspection/Auscultation: normal bowel sounds; abdomen not distended Percussion/Palpation: abdomen soft Lymphatic: no cervical or axillary lymphadenopathy Results & Data Results & Data Vital Signs (Past 12 Hours) Vital Signs O2 Del Method 02/17/24 07:25 Room Air Medications Administered Current Inpatient Medications Glycopyrrolate (Glycopyrrolate 0.2 Mg/Ml Vial) 0.2 mg IV Q4H PRN PRN Reason: Secretions or Pulm Congestion Stop: 03/14/24 11:50 Last Admin: 02/17/24 06:05 Dose: 0.2 mg Lorazepam 0.5 mg/ Syringe 0.5 mls @ 2 mls/min IV Q4H PRN; Protocol PRN Reason: Anxiety/Agitation Stop: 03/14/24 11:50 Last Admin: 02/15/24 19:19 Dose: 2 mls/min Morphine Sulfate (Morphine Sulfate 2 Mg/Ml Carp) 2 mg IV Q4H PRN PRN Reason: Pain or Respiratory Distress Stop: 02/27/24 11:50 Last Admin: 02/17/24 10:11 Dose: 2 mg Ondansetron HCl (Ondansetron Inj 2 Mg/Ml 2 Ml Vial) 4 mg IV Q6H PRN PRN Reason: Nausea Stop: 03/11/24 15:33
--- NOTE | 2024-02-18 14:33 | Hospitalist Progress Note ---
Date of Service February 18, 2024 Assessment & Plan (1) Comfort measures only status: (2) Metabolic encephalopathy: (3) Severe sepsis: (4) Acute UTI: (5) Hypothermia: (6) SHWETA (acute kidney injury): (7) Acute hypernatremia: Plan This is a 83 year old male with PMH HTN, HLD, atrial fibrillation not on anticoagulation due to history SAH, s/p watchman 09/2023 on DAPT, DM II, myasthenia gravis, depression, progressive dysphagia who presents to ED due to worsened mental status. Of significance pt was in ED initially on 11/26/2022 due to worsening headaches, dysphagia, and episode of confusion. He experienced a progressive neurologic decline and transferred to [facility] [place] [facility] on 11/29 for neurologic eval and LP. No clear etiology of patient's decline was revealed. Patient was evaluated by general surgey and not a candidate for PEG placement. Patient's course complicated by C diff and completed oral vanc for 14 days on 12/28. Patient then transferred to [facility] on 12/29 while placement is pending for residential care. He was hospitalized here until 01/09/2024 awaiting placement. His hospital course here was notable for SHWETA which resolved with IV fluids. Since November pt has not regained his mentation. He remains confused but typically alert at baseline. Over last week has been, "out of it." He lost his 1 week ago. Unresponsiveness Acute metabolic encephalopathy Severe sepsis -borderline shock with gram-positive bacteremia Acute UTI Hypothermia Acute Hypernatremia Hypoglycemia Cdiff PAF hx of SDH Had lengthy discussion with daughter Maddie over the phone regarding pts current condition, assessment and prognosis on 02/13/24. We had talked on admission regarding trailing IVF and antibiotics to determine if patient was going to elicit response vs. end of life There has been no real meaningful turn around as pt remains obtunded He is also showing signs of the active dying process She just lost her mother 1 week ago. She is familiar with hospice/palliative care. She is agreeable that at this point in time it is time to transition to comfort care measures only as Mr. Huizar currently has no meaningful quality of life at this point will d/c school bus monitor, fluids, antibiotics, lab draws Comfort measures only with PRN IV morphine, zofran, tylenol, ativan, glycopyrrolate Bereavement tray and pastoral care offered Anticipate Mr. Huizar to pass in house and suspect within the next few days Remains stable but critical No distress at rest Has been on comfort care medications Remains comfort without any suffering's Discussed with the family members-happy with the care Remains critical without any acute distress-will continue current comfort measures No distress, no shortness of breath-will keep comfortable Dispo: Comfort measures only at this time. Expect pt to pass in house, not stable to transfer out DNR/DNI Admission and Anticipated Discharge Date Admission Date: February 10, 2024 Subjective 02/11/2024 Patient was seen and examined in telemetry unit He remains semiconscious and not been following any commands except opening eyes a little and moving fingers minimally Not in any acute distress otherwise 02/12/2024 The patient was seen and examined in telemetry unit He remains unconscious Hemodynamically stable with blood pressure on the lower side and hypothermic 02/15/2024 Patient was seen and examined in medical floor Remains on comfort care and stable Occasional movement of the extremities with commands-no communication 02/16/2024 Patient was seen and examined in medical floor in presence of the family members Remains critical and stable No apparent distress at rest 02/17/2024 The patient was seen and examined in medical floor He has been stable Not in any distress 02/18/2024 Remains stable in medical floor Physical Exam Physical Exam: Lying in bed without any acute distress Constitutional: + ill appearing and average body habitus Eyes: PERRL, conjunctivae normal, anicteric sclerae ENMT: external ear and nose normal, oropharynx normal Neck: trachea midline, no thyromegaly Respiratory: no respiratory distress Auscultation: + diminished lung sounds Cardiovascular: Rate/Rhythm: regular rate, regular rhythm and + bradycardic Heart Sounds: normal S1 and normal S2; no murmur Extremities: no edema Gastrointestinal (Abdomen): Inspection/Auscultation: normal bowel sounds; abdomen not distended Percussion/Palpation: abdomen soft Lymphatic: no cervical or axillary lymphadenopathy Results & Data Results & Data Vital Signs (Past 12 Hours) Vital Signs O2 Del Method 02/18/24 07:25 Room Air
--- NOTE | 2024-02-19 09:16 | Death Pronouncement Note ---
Date of Service February 19, 2024 Pronouncement Note Admission Date February 10, 2024 Date and Time of Date of : 02/19/24 Time of : 02:32 Additional Data Confirmation of : no pulse, no respirations, no heart sounds and pupils fixed and dilated Attending physician: Angela Domingo MD
--- NOTE | 2024-02-20 10:27 | Discharge Summary ---
Date of Service February 20, 2024 Admission HPI Per Admitting Provider This is a 83 year old male with PMH HTN, HLD, atrial fibrillation not on anticoagulation due to history SAH, s/p watchman 09/2023 on DAPT, DM II, myasthenia gravis, depression, progressive dysphagia who presents to ED due to worsened mental status. History obtained from inpatient and outpatient chart review along with ED provider. Of note pt with significant recent hospitalizations: ED initially on 11/26/2022 due to worsening headaches, dysphagia, and episode of confusion. He experienced a progressive neurologic decline and transferred to [facility] on 11/29 for neurologic eval and LP. No clear etiology of patient's decline was revealed. Patient was evaluated by general surgey and not a candidate for PEG placement. Patient's course complicated by C diff and completed oral vanc for 14 days on 12/28. Patient then transferred to [facility] on 12/29 while placement is pending for nursing home care. He was hospitalized here until 01/09/2024 awaiting placement. His hospital course here was notable for SHWETA which resolved with IV fluids. Patient was seen and evaluated by neurology in [place] in regards to his history of myasthenia gravis. He was recommended to continue VERIFY REP pyridostigmine 30 mg 3 times a day on discharge but hold long-acting pyridostigmine 180 mg daily until he follows up with neurology as outpatient. He was also started on olanzapine by palliative medicine. He was transferred to [facility] upon bed availability on 01/09/24. 2 daughters and son-in-law were at bedside. History unobtainable from patient. Family members at bedside states that he was in his normal state of health in November when his difficulties with memory and neurologic decline began. They state it began all of a sudden. Despite prolonged hospitalization and transfer to tertiary center his current status remains unexplained. They state that this remains constant and he continues to remain in a state of confusion. He typically is more alert and will occasionally recognize family members, but mostly is confused. They noted over the past week he has mostly, "out of it." They were told that he does have a wound on his buttock and they were giving him morphine throughout the week. They are unaware if he has had any fevers or coughs. They state that when they witnessed him eating meals and swallowing it did not appear as if he was aspirating. In ED patient was hypothermic, hypotensive and bradycardic. He had evidence of severe dehydration and hyponatremia. There is also concern for sepsis and UTI. Discussion was made with family at bedside for patient to be DNR/DNI. Past medical, social and surgical history was reviewed. This was also reviewed in the outpatient setting. Unobtainable from patient himself. Admission Exam Per Admitting Provider Physical Exam: Constitutional: Elderly, acutely ill, unresponsive, vitals as above, NAD Head: Normocephalic, Atraumatic Eyes: Pupils equal and responsive, conjunctivae normal, anicteric sclerae ENMT: external ear and nose normal, oropharynx with very dry mucous membranes Neck: trachea midline, no thyromegaly normal visual inspection Respiratory: Decreased respiratory effort, lungs clear to auscultation but poor inspiratory effort, no wheeze, rales, rhonchi noted. Normal insp/exp effort, no accessory muscle use Cardiovascular: Bradycardic rate, regular rhythm, no murmur, no edema Vessels: no JVD or carotid bruit Chest: normal inspection of chest Abdomen: normal bowel sounds, soft, nontender, no hepatosplenomegaly Musculoskeletal: Unable to assess due to unresponsiveness Skin: no rashes, warm and dry normal turgor Neurologic: no face palsy Psychiatric: Unresponsive : Che catheter with yellow urine noted in tubing, but none in bag Principal Diagnosis The Patient . Severe Sepsis,UTI,Hypothermia,SHWETA,Myasthenia Gravis Discharge Data Allergies Allergy/AdvReac Type Severity Reaction Status Date / Time felodipine Allergy Intermediate hives Verified 02/10/24 12:18 flunisolide Allergy Unknown other Verified 02/10/24 12:18 gabapentin AdvReac Intermediate GI SYMPTOMS Verified 02/10/24 12:18 Thiazides AdvReac Intermediate CAUSED GOUT Verified 02/10/24 12:18 Consultations 02/10/24 12:26 ED Decision to Admit Stat 02/10/24 13:32 Consult Nephrology Routine Ordered Studies 02/10/24 10:04 CT head/brain wo con Stat 02/10/24 10:59 CT abd pelvis wo con Stat CT chest diagnostic wo con Stat Hospital Course (1) Comfort measures only status: (2) Metabolic encephalopathy: (3) Severe sepsis: (4) Acute UTI: (5) Hypothermia: (6) SHWETA (acute kidney injury): (7) Acute hypernatremia: Plan This is a 83 year old male with PMH HTN, HLD, atrial fibrillation not on anticoagulation due to history SAH, s/p watchman 09/2023 on DAPT, DM II, myasthenia gravis, depression, progressive dysphagia who presents to ED due to worsened mental status. Of significance pt was in ED initially on 11/26/2022 due to worsening headaches, dysphagia, and episode of confusion. He experienced a progressive neurologic decline and transferred to [facility] on 11/29 for neurologic eval and LP. No clear etiology of patient's decline was revealed. Patient was evaluated by general surgey and not a candidate for PEG placement. Patient's course complicated by C diff and completed oral vanc for 14 days on 12/28. Patient then transferred to [facility] on 12/29 while placement is pending for long term care pharmacist care. He was hospitalized here until 01/09/2024 awaiting placement. His hospital course here was notable for SHWETA which resolved with IV fluids. Since November pt has not regained his mentation. He remains confused but typically alert at baseline. Over last week has been, "out of it." He lost his 1 week ago. Unresponsiveness Acute metabolic encephalopathy Severe sepsis -borderline shock with gram-positive bacteremia Acute UTI Hypothermia Acute Hypernatremia Hypoglycemia Cdiff PAF hx of SDH Had lengthy discussion with daughter Maddie over the phone regarding pts current condition, assessment and prognosis on 02/13/24. We had talked on admission regarding trailing IVF and antibiotics to determine if patient was going to elicit response vs. end of life There has been no real meaningful turn around as pt remains obtunded He is also showing signs of the active dying process She just lost her mother 1 week ago. She is familiar with hospice/palliative care. She is agreeable that at this point in time it is time to transition to comfort care measures only as Mr. Huizar currently has no meaningful quality of life at this point will d/c arch pad cementer, fluids, antibiotics, lab draws Comfort measures only with PRN IV morphine, zofran, tylenol, ativan, glycopyrrolate Bereavement tray and pastoral care offered Anticipate Mr. Huizar to pass in house and suspect within the next few days Remains stable but critical No distress at rest Has been on comfort care medications Remains comfort without any suffering's Discussed with the family members-happy with the care Remains critical without any acute distress-will continue current comfort measures No distress, no shortness of breath-will keep comfortable Dispo: Comfort measures only at this time. Expect pt to pass in house, not stable to transfer out DNR/DNI Total Time Total Time Spent Total Time Spent (In Minutes): 20 minutes Discharge Plan Discharge Items Patient Disposition: Other Date/Time: 02/19/24 02:32
== END 2024-02-19 04:05 | disposition expired | DRG 871 ==
LOC: ED 09:58 → 2E 14:54 → SUATTDRO 15:20 → 2E 15:20 → 3E 02-14 02:12